=== PATIENT | male | born 1940 | race Caucasian/White ===

== ENCOUNTER 2021-03-11 01:46 | Inpatient (IN) ==
[2021-03-11] MEDS ORDERED: FUROSEMIDE 40 MG/4 ML VIAL IV ONE (02:28)
[2021-03-11 03:38] LABS: BUN Creatinine Ratio 19.7 (10-20); Blood Urea Nitrogen 43 mg/dl (7-18); Calcium 8.3 mg/dl (8.5-10.1); Carbon Dioxide 17 mmol/L (21-32); Chloride 108 mmol/L (98-107); Est GFR (African American) 31.8 ml/min; Est GFR (Non-African American) 27.5 ml/min; Glucose 282 mg/dl (70-99); Sodium 138 mmol/L (136-145)
[2021-03-11 03:39] LABS: INR 1.2 (0.9-1.1); Partial Thromboplastin Ratio 0.9; Partial Thromboplastin Time 24.5 Seconds (21.0-31.0); Prothrombin Time 11.7 Seconds (9.0-12.0)
[2021-03-11] MEDS ORDERED: Heparin IV Adult Wt-Based Low-Dose WITH Bolus Protocol STA (03:41)
[2021-03-11 03:46] LABS: Hematocrit (blood only) 33.8 % (42-52); Mean Corpuscular Hemoglobin 35.8 pg (25-34); Mean Corpuscular Hgb Conc 32.5 g/dL (32-36); Mean Corpuscular Volume 110.1 fL (80-100); Mean Platelet Volume 10.2 fL (7.4-10.4); Platelet Count 656 K/uL (130-400); RDW Coefficient of Variation 16.4 % (11.5-14.5); RDW Standard Deviation 64.4 fL (36.4-46.3); Red Blood Count 3.07 M/uL (4.7-6.1); White Blood Count 35.43 K/uL (4.8-10.8)
[2021-03-11] MEDS ORDERED: HEPARIN SOD (PORCINE) 1000 UNIT/ML IV ONE ×2 (03:56→11:45)
[2021-03-11 04:20] LABS: Potassium 5.6 mmol/L (3.5-5.1)
[2021-03-11 04:29] LABS: Albumin Level 3.3 gm/dl (3.4-5.0); Bilirubin Direct 0.3 mg/dl (0-0.2); Bilirubin,Total 0.8 mg/dl (0.2-1); Total Protein 6.7 gm/dl (6.4-8.2)
[2021-03-11 04:58] LABS: ANC (manual) 9.32 K/uL (1.4-6.5); Basophils # (manual) 0.64 K/uL (0-0.2); Basophils % (manual) 1.8 %; Echinocytes 1+; Large Granular Lymph # (manua 10.88 K/uL; Large Granular Lymph % (manual) 30.7 %; Lymphocytes # (manual) 12.72 K/uL (1.2-3.4); Lymphocytes % (manual) 35.9 %; Monocytes # (manual) 1.88 K/uL (0.11-0.59); Monocytes % (manual) 5.3 %; Neutrophils # (manual) 9.32 K/uL (1.4-6.5); Neutrophils % (manual) 26.3 %; Polychromasia 1+
[2021-03-11] MEDS: HEPARIN SODIUM/DEXTROSE 25,000 UNITS/500 ML BAG IV SCH (05:18)
--- NOTE | 2021-03-11 05:29 | History & Physical Report ---
Date of Service March 11, 2021 Assessment & Plan (1) Acute respiratory failure: Plan: Likely secondary to pulmonary edema from acute heart failure. Patient has a recent echocardiogram in November 2020 revealing valvular disease with moderate aortic valve stenosis present and an EF of 55 to 59%. He also has an elevated troponin present which may be indicative of an NSTEMI. He is chest pain-free at this time. There is concern however for infection as a possible cause as he has had a low-grade fever and now has a dramatically increased white count to 35,000 within 24 hours. We will continue with Lasix for diuresis, check BMP, check procalcitonin, trend troponin and consult cardiology for thoughts and recommendations. Additionally, will screen his urine for infection as he is reported acute urinary retention in the last week that is new for him. Yulissaen mu Anthony is in place. Would empirically cover broadly with antibiotics pending these results and clinical improvement. (2) Elevated troponin: Plan: trend trop. NSTEMI vs demand ischemia in acute illness. Heparin drip. Cardiology consultation. (3) Acute kidney injury superimposed on chronic kidney disease: Plan: Multiple possible etiologies. Repeat BMP after treatment above. Renally dose meds and avoid nephrotoxic substances as able. (4) Hyperglycemia: Plan: No history of DMII. Likely reflective of steroids given HELMINTHOLOGIST. Cont to monitor closely with additional glucose checks. (5) CLL (chronic lymphocytic leukemia): Plan: chronic, received treatment once for this (immunotherapy) in 2012 and remains in remission, monitored closely by hematology (6) Anemia in CKD (chronic kidney disease): Plan: Receives regular injections of Procrit under the care of Nephrology. (7) HTN (hypertension): Plan: Around goal, cont Norvasc per home regimen. (8) Tobacco use disorder: Plan: actively smokes cigars. Nicotine replacement PRN. (9) DVT prophylaxis: Plan: heparin drip Full Code per my discussion with the patient and his son on admission. Dispo- to PCU DO Tawny Sheikh Hospitalist History of Present Illness Chief Complaint: respiratory distress Primary Care Provider: NO PCP Mr. Toledo is a 80-year-old man with a history of CLL and low-grade myelodysplastic syndrome. For the past 1 week he has been having fevers and chills with temperature running 100-100.3, worsening shortness of breath and dyspnea on exertion despite walking on flat ground. He denies any coughing, swelling or weight gain. He denies any night sweats. He reports getting his care most of the year in [place], and is also treated by [facility] oncology who recently gave him a flu vaccine and Procrit/Aranesp on 03/01. Per his son who is at bedside, assisting with the history, within 2 days of receiving these injections Mr. Toledo's current symptoms began. He adamantly denies any chest pain. Work-up reveals a white blood cell count of 35,000 and notably on outpatient lab work his white blood cell count was 13,000 yesterday. Prior to arrival EMS gave him 125 mg of Solu-Medrol and 1 DuoNeb with 1 mg Ativan IV. He is in normal sinus rhythm, H&H is 11/34 with an MCV of 110, platelets are 656. CHEM panel reveals a sodium of 138 potassium of 5.6 (with a hemolyzed sample), CO2 of 17, BUN 43, creatinine 2.2 with a baseline creatinine of 1.4-1.5. His glucose is elevated to 282 and he has no reported history of diabetes. This may be reflective of the Solu-Medrol given prior to arrival. AST mildly elevated at 64, ALT 74. Troponin elevated at 1.410 and SARS-CoV-2 PCR was negative. Pulm onary vascular congestion with pleural effusions bilaterally are present on chest x-ray per my interpretation. EKG is unavailable for viewing at this time. In the ER he was given a dose of Lasix 40 mg IV and placed on a heparin drip. A Anthony catheter was placed and he required BiPAP with settings 14/8. Allergies Allergy/AdvReac Type Severity Reaction Status Date / Time RYLEE Inhibitors AdvReac Intermediate Renal Verified 03/11/21 14:43 Complications Home Medications Medication Instructions Recorded Confirmed Type Black Elderberry(Ellison-Flower) 575 mg PO DAILY 03/11/21 03/11/21 History acetaminophen 500 mg tablet 500 mg PO Q6H PRN 03/11/21 03/11/21 History (Tylenol Extra Strength) amino acids-multivit with iron and 1 tab PO DAILY 03/11/21 03/11/21 History minerals tablet amlodipine 2.5 mg tablet 2.5 mg PO DAILY 03/11/21 03/11/21 History apple cider vinegar 500 mg tablet 500 mg PO DAILY 03/11/21 03/11/21 History azelastine 137 mcg (0.1 %) nasal 2 spray INTRANASAL BID 03/11/21 03/11/21 History spray aerosol cholecalciferol (vitamin D3) 25 25 mcg PO DAILY 03/11/21 03/11/21 History mcg (1,000 unit) tablet (Vitamin D3) cyanocobalamin (vitamin B-12) 1,000 mcg PO DAILY 03/11/21 03/11/21 History 1,000 mcg tablet (Vitamin B-12) epoetin abel 40,000 unit/mL 40,000 unit SUBCUT DIRECTED 03/11/21 03/11/21 History injection solution (Procrit) fluticasone propionate 50 1 spray INTRANASAL DAILY 03/11/21 03/11/21 History mcg/actuation nasal spray,suspension folic acid 1 mg tablet 1 mg PO DAILY 03/11/21 03/11/21 History levothyroxine 75 mcg tablet 75 mcg PO DAILYBB 03/11/21 03/11/21 History pyridoxine (vitamin B6) 100 mg 100 mg PO BID 03/11/21 03/11/21 History tablet (Vitamin B-6) triamcinolone acetonide 0.1 % 1 applic TOPICAL HS PRN 03/11/21 03/11/21 History topical ointment turmeric 450 mg-turmeric root 1 cap PO DAILY 03/11/21 03/11/21 History extract 50 mg capsule Past Med/Surg History Medical History Anemia in CKD (chronic kidney disease) CLL (chronic lymphocytic leukemia) H/O: rheumatic fever HTN (hypertension) LBBB (left bundle branch block) MDS (myelodysplastic syndrome), low grade Nocturnal hypoxemia HAWA (obstructive sleep apnea) Prostate cancer Tobacco use disorder Surgical History H/O uvulectomy S/P tonsillectomy and adenoidectomy Family History Other Family history non-contributory Social History Smoking Status: Former smoker Second Hand Exposure: No; Do You Dip or Chew Tobacco: No; Tobacco Cessation Education Requested by Patient: No Hx Alcohol Use: No Hx Substance Use: No Preferred Language: Khmer Communication Ability: Effective Anesthesia Tech Required: No Beliefs That Will Affect Care: None Current Living Situation: Spouse How many Children do You have: 4 Other Information That Helps Us Care for You: No Feels Safe at Home: Yes Safety Concerns: Feels Safe At This Time Assistive Devices: CPAP Review of Systems Review of Systems: At least ten systems were reviewed and negative except as indicated in HPI above. Physical Exam Physical Exam: CONSTITUTIONAL: WNWD, vitals as above, generally ill- appearing, tachypneic on BIPAP EYES: PERRL, normal conjunctivae, no scleral icterus ENT: external ear and nose normal, BIPAP in place. NECK: trachea midline RESPIRATORY: clear to auscultation bilaterally, no crackles, rales or wheezes, increased respiratory effort. CARDIOVASCULAR: regular rate and rhythm, S1 and 2 heard without murmurs, gallops or rubs, no JVD, no peripheral edema GASTROINTESTINAL: soft, nontender, ND, no guarding MUSCULOSKELETAL: generalized weakness, head is normocephalic and atraumatic SKIN: warm and dry NEUROLOGIC: CN 2-12 grossly intact, normal cognition, normal speech, no tremor. No gross focal deficits. PSYCHIATRIC: alert cooperative and oriented to person, place and time. Results & Data Results & Data ([facility]) Vital Signs (Past 12 Hours) Vital Signs Pulse Resp BP Pulse Ox 03/11/21 04:00 30 H 116/76 98 03/11/21 03:30 67 22 107/79 98 03/11/21 03:18 94 H 22 142/64 H 98 03/11/21 03:01 72 27 H 98 03/11/21 03:00 70 120/57 L 95 03/11/21 02:53 72 23 116/51 L 97 03/11/21 01:50 101 H 28 H 99 Laboratory Results Short CBC 03/11/21 Range/Units 01:50 WBC 35.43 H* (4.8-10.8) K/uL Hgb 11.0 L (14.0-18.0) g/dL Hct 33.8 L (42-52) % Plt Count 656 H (130-400) K/uL BMP 03/11/21 03/11/21 01:50 03:44 Sodium 138 Potassium 5.6 H Chloride 108 H Carbon Dioxide 17 L BUN 43 H Creatinine 2.20 H Glucose 282 H Calcium 8.3 L Cardiac Enzymes 03/11/21 03/11/21 Range/Units 01:50 03:44 Total Creatine Kinase 150 (39-308) U/L CK-MB (CK-2) 6.0 H (0.5-3.6) ng/ml Troponin I 1.410 H* (0-0.045) ng/ml Liver Function 03/11/21 Range/Units 03:44 Total Bilirubin 0.8 (0.2-1) mg/dl Direct Bilirubin 0.3 H (0-0.2) mg/dl AST 64 H (15-37) U/L ALT 74 (12-78) U/L Alkaline Phosphatase 78 (45-117) U/L Albumin 3.3 L (3.4-5.0) gm/dl Diagnostic Findings Chest X-Ray 03/11/21 01:50 XR chest 1V portable HISTORY: 80 years-old Male SOB acute shortness of breath COMPARISON: None TECHNIQUE: Portable AP view of the chest FINDINGS: Cardiac silhouette is enlarged. Pulmonary vascular congestion with asymmetric right hilar prominence. Calcified plaque of the thoracic aorta. No pneumothorax. Layering pleural effusions with right greater than left bibasilar consolidation. Mixed interstitial and alveolar opacities. Degenerative changes of the shoulders and spine. IMPRESSION: 1. Cardiomegaly with pulmonary edema and layering pleural effusions. 2. Right perihilar and right lung base predominant airspace opacities. Superimposed pneumonia would be difficult to exclude. ACT 112: Negative or not required by law. The above report was generated using voice recognition software. It may contain grammatical, syntax or spelling errors. Electronically signed by: Shayne Moran M.D. 03/11/2021 6:57 AM Medications Administered Lasix 40mg IV Heparin drip Code Status & VTE Plan Code Status Full Code as confirmed on admission. VTE Prophylaxis Plan VTE Prophylaxis will be ordered: Yes
--- NOTE | 2021-03-11 06:59 | XRay Report ---
XR chest 1V portable HISTORY: 80 years-old Male SOB acute shortness of breath COMPARISON: None TECHNIQUE: Portable AP view of the chest FINDINGS: Cardiac silhouette is enlarged. Pulmonary vascular congestion with asymmetric right hilar prominence. Calcified plaque of the thoracic aorta. No pneumothorax. Layering pleural effusions with right great er than left bibasilar consolidation. Mixed interstitial and alveolar opacities. Degenerative changes of the shoulders and spine. IMPRESSION: 1. Cardiomegaly with pulmonary edema and layering pleural effusions. 2. Right perihilar and right lung base predominant airspace opacities. Superimposed pneumonia would b e difficult to exclude. ACT 112: Negative or not required by law. The above report was generated using voice recognition software. It may contain grammatical, syntax o r spelling errors. Electronically signed by: Shayne Moran M.D. 03/11/2021 6:57 AM
[2021-03-11] MEDS ORDERED: PIPERACILLIN/TAZOBACTAM 4.5 GM/120 ML BAG IV STA (07:30)
[2021-03-11] MEDS ORDERED: POLYETHYLENE (MIRALAX) 17 GM PACK PO PRN (07:31)
[2021-03-11] MEDS ORDERED: PIPERACILL/TAZOBAC CONSULT ACTIVE PRN (07:31)
[2021-03-11] MEDS ORDERED: ACETAMINOPHEN 325 MG TAB PO PRN (07:31)
[2021-03-11] MEDS: PATIENT'S HEIGHT NEEDED SCH ×3 (07:46→11:01)
[2021-03-11] MEDS: PATIENT'S ALLERGY INFO NEEDS ENTERED SCH (07:47)
[2021-03-11 08:42] LABS: Troponin I 2.2 ng/ml (0-0.045)
[2021-03-11] MEDS: amLODIPine BESYLATE 5 MG TAB PO SCH (09:35)
[2021-03-11 10:10] LABS: Estimated Average Glucose 105 mg/dl; Hemoglobin A1C 5.3 % (4.5-5.6)
[2021-03-11 10:24] LABS: BUN Creatinine Ratio 23.4 (10-20); Blood Urea Nitrogen 47 mg/dl (7-18); Calcium 8.6 mg/dl (8.5-10.1); Carbon Dioxide 23 mmol/L (21-32); Chloride 107 mmol/L (98-107); Est GFR (African American) 35.3 ml/min; Est GFR (Non-African American) 30.5 ml/min; Glucose 150 mg/dl (70-99); Sodium 137 mmol/L (136-145)
[2021-03-11 10:37] LABS: Potassium 4.6 mmol/L (3.5-5.1)
--- NOTE | 2021-03-11 11:03 | Cardiology Consultation ---
Date of Consultation March 11, 2021 Assessment & Plan (1) Acute decompensated heart failure: (2) Acute respiratory failure: (3) NSTEMI (non-ST elevated myocardial infarction): (4) Acute kidney injury superimposed on chronic kidney disease: (5) Aortic stenosis: IV furosemide 40 mg/day Add Aspirin IV heparin > 48 hours Low dose beta-kelle, with caution. Resting echocardiography Further recommendations pending the above, evaluation by Dr. Alatorre, and the patient's ongoing hospitalization. Supervising Physician Co-Signing Physician Notes Supervising Physician Attestation: I have personally performed a history and physical examination on the patient. I agree with the physician school office assistant's findings and plan as documented with the following additions. Subjective: Patient subjectively improved having received furosemide. Anthony catheter is draining clear yellow urine in this was emptied while he was in the heart center having his echocardiogram. Chest x-ray reveals lateral large bilateral pleural effusions. Exam: Pulmonary: Decreased breath sounds bilaterally at the bases to the mid lung villatoro Cardiovascular regular rhythm, 1/6 systolic murmur, trace lower extremity edema GI: Anthony catheter in place draining clear yellow urine Data: EKG 03/11/2021 reviewed independently sinus rhythm at 94 bpm, left bundle branch block, QRS duration 152 ms -Unchanged compared to 2017, 2018, November, Transthoracic echocardiogram performed as an outpatient November,, report describes abnormal septal motion consistent with bundle branch block, normal LVEF 55 to 59% Repeat echo pending. Assessment and Plan: Acute volume overload, likely systolic and diastolic dysfunction History of stage IIIa chronic kidney disease, recent outpatient estimated GFR in the range of 43 to 49 mmHg,Creatinine 2.02 today. Chronic left bundle branch block -Continue IV furosemide, Anthony catheter,We will discuss either changing his antibiotic to when that would require less oral input such as cefepime or doxycycline, though I think we have a good explanation for his shortness of breath and that is due to CHF, and perhaps we can watch him off of antibiotics completely. His recent low-grade fever likely explained by influenza vaccine. SARS-CoV-2 screen negative. US of kidneys for ERICK, of chest for pleural effusions. Continue heparin as could very well have frequent heart disease, however his presentation is not suggestive of an acute intra coronary plaque rupture. DVT prophylaxis: IV heparin Maged Alatorre, DO History of Present Illness Reason for Consultation: Elevated troponin Requesting Physician: Dario Attending Physician: Janneth History of Present Illness Mr. Toledo is a 80-year-old male who was admitted to [facility] on February, presenting with a chief complaint of acute dyspnea. The patient notes feeling well until Wednesday, March 03, 2021; he attributes the decline to receiving the influenza vaccination at [facility] two days prior. Notes having a temperature of up to 100.3 at home shortly after receiving the influenza vaccination. Notes talking things over with his son, performing home Covid testing obtained at [facility] on Monday as well as Monday (negative results). He describes to me worsening dyspnea, being unable to walk to the mailbox without having to stop and rest, progressing to dyspnea at rest, cough with white sputum production, chest congestion, orthopnea, and difficulty tolerating CPAP therapy the last couple of night. Due to progressive symptoms last nigh, EMS was summoned. He was given 125 mg of Solu-Medrol, a DuoNeb treatment, and 1 mg of IV Ativan. White blood cell count elevated to 35,000 in the ER, 13,000 yesterday at [facility]. Chest x-ray revealed cardiomegaly with pulmonary edema and layering pleural effusions and right perihilar and right lung base airspace opacities. EKG revealed normal sinus rhythm at 94 bpm with possible left atrial enlargement, chronic left bundle branch block. Troponin I 1.410 then 2.200. NT pro BNP was elevated at 15,181. Creatinine was 2.20 on presentation. Continuous telemetry monitoring since admission reveals sinus with atrial and ventricular ectopy, one 6 beat run of ventricular tachycardia at 933 this morning. Covid testing was negative in the ER. He was given 40 mg of IV Lasix in the ER with brisk diuresis. IV heparin initiated. Anthony catheter inserted. Patient initially required BiPAP therapy, currently utilizing supplemental oxygen via nasal cannula. Patient denies chest pain, discomfort, tightness, pressure, pleurtic chest pain, tachypalpitations, lightheadedness, dizziness, near syncope, or syncope. Past Medical and Surgical History Aortic stenosis History of rheumatic fever Chronic left bundle branch block Hypertension T-cell lymphoma Myelodysplastic syndrome, chronic Procrit therapy Anemia in CKD (chronic kidney disease) Obstructive sleep apnea and nocturnal hypoxemia Prostate cancer Tobacco use disorder Left knee arthroscopy Palatal uvuloplasty Family History: Mother at 91. She had CAD. Father at 71 with cancer. Sister at 71 with CAD. Social History: No cigarettes. He chews/smokes cigars. No smokeless tobacco use. Alcohol: Occasional scotch. No illegal drug use. 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 Allergies Allergy/AdvReac Type Severity Reaction Status Date / Time RYLEE Inhibitors Allergy Intermediate Renal Unverified 03/11/21 07:17 Complications Home Medications Medication Instructions Recorded Confirmed Type Black Elderberry(Ellison-Flower) 575 mg PO DAILY 03/11/21 03/11/21 History acetaminophen 500 mg tablet 500 mg PO Q6H PRN 03/11/21 03/11/21 History (Tylenol Extra Strength) amino acids-multivit with iron and 1 tab PO DAILY 03/11/21 03/11/21 History minerals tablet amlodipine 2.5 mg tablet 2.5 mg PO DAILY 03/11/21 03/11/21 History apple cider vinegar 500 mg tablet 500 mg PO DAILY 03/11/21 03/11/21 History azelastine 137 mcg (0.1 %) nasal 2 spray INTRANASAL BID 03/11/21 03/11/21 History spray aerosol cholecalciferol (vitamin D3) 25 25 mcg PO DAILY 03/11/21 03/11/21 History mcg (1,000 unit) tablet (Vitamin D3) cyanocobalamin (vitamin B-12) 1,000 mcg PO DAILY 03/11/21 03/11/21 History 1,000 mcg tablet (Vitamin B-12) epoetin abel 40,000 unit/mL 40,000 unit SUBCUT DIRECTED 03/11/21 03/11/21 History injection solution (Procrit) fluticasone propionate 50 1 spray INTRANASAL DAILY 03/11/21 03/11/21 History mcg/actuation nasal spray,suspension folic acid 1 mg tablet 1 mg PO DAILY 03/11/21 03/11/21 History levothyroxine 75 mcg tablet 75 mcg PO DAILYBB 03/11/21 03/11/21 History pyridoxine (vitamin B6) 100 mg 100 mg PO BID 03/11/21 03/11/21 History tablet (Vitamin B-6) triamcinolone acetonide 0.1 % 1 applic TOPICAL HS PRN 03/11/21 03/11/21 History topical ointment turmeric 450 mg-turmeric root 1 cap PO DAILY 03/11/21 03/11/21 History extract 50 mg capsule Patient History Medical History Anemia in CKD (chronic kidney disease) CLL (chronic lymphocytic leukemia) H/O: rheumatic fever HTN (hypertension) LBBB (left bundle branch block) MDS (myelodysplastic syndrome), low grade Nocturnal hypoxemia HAWA (obstructive sleep apnea) Prostate cancer Tobacco use disorder Family History Other Family history non-contributory Social History Smoking Status: Former smoker Second Hand Exposure: No; Do You Dip or Chew Tobacco: No; Tobacco Cessation Education Requested by Patient: No Hx Alcohol Use: No Hx Substance Use: No Preferred Language: Martiniquais Communication Ability: Effective Upholsterer Assembly Line Required: No Beliefs That Will Affect Care: None Current Living Situation: Spouse How many Children do You have: 4 Other Information That Helps Us Care for You: No Feels Safe at Home: Yes Safety Concerns: Feels Safe At This Time Assistive Devices: CPAP Review of Systems Review of Systems: Complete Review of Systems: Constitutional: No change in weight. + Fever up to 100.3 on 03/02 and 03/03. No rigors. No soaking night sweats. HENT: No amaurosis fugax. Pulmonary: HAWA/hypoxemia. Cardiac: Aortic stenosis. GI/Abd: No dysphagia. No melana or hematochezia. Renal: CKD. Denies liver problems. Vascular: No history of carotid artery disease, AAA, or claudication. Hematologic: See above. Musculoskeletal: Prior knee intervention. Arthritis. Skin: No rash. Neurologic: No history of TIA or CVA Male : BPH. Prostate cancer. Endocrine: Denies history of diabetes. Complete Review of Systems is as stated above or negative. Physical Exam Physical Exam: General: A&Ox3. + Tachypnic. HENT: Normocephalic. Atraumatic. Eyes: PER. Conjunctiva pink, sclera clear. Neck: + JVD. No carotid bruits. Heart: Irregular with an occasional ectopic beat, 90 bpm. Systolic ejection murmur. + Gallop. No diastolic murmur. No rub. Lungs: Diminished. Decreased. Absent breath sounds at the bases. Bibasilar rales . Abdomen: +BS. Soft. Nontender. No masses or organomegaly. Extremities: Mild right greater than left lower extremity edema. No clubbing. No cyanosis. Limited neurological examination is without focal deficits. Pulses: radial=2/4, posterior tibial=2/4 on the right, 1/4 on the left Results & Data ([facility]) Vital Signs (Past 12 Hours) Vital Signs Temp Pulse Resp BP BP Pulse Ox Pulse Ox 03/11/21 10:07 81 03/11/21 07:50 81 03/11/21 07:35 16 133/79 95 03/11/21 07:31 37 C 95 03/11/21 06:30 82 26 H 114/73 99 03/11/21 06:00 83 24 133/74 99 03/11/21 04:00 30 H 116/76 98 03/11/21 03:30 67 22 107/79 98 03/11/21 03:18 94 H 22 142/64 H 98 03/11/21 03:01 72 27 H 98 03/11/21 03:00 70 120/57 L 95 03/11/21 02:53 72 23 116/51 L 97 03/11/21 01:50 101 H 28 H 99 Laboratory Results Laboratory Results - last 24 hr 03/11/21 03/11/21 03/11/21 01:50 01:50 01:50 WBC 35.43 H* RBC 3.07 L Hgb 11.0 L Hct 33.8 L MCV 110.1 H MCH 35.8 H MCHC 32.5 RDW Std Deviation 64.4 H RDW Coeff of Geovanni 16.4 H Plt Count 656 H MPV 10.2 Neutrophils % (Manual) 26.3 Lymphocytes % (Manual) 35.9 Monocytes % (Manual) 5.3 Basophils % (Manual) 1.8 Neutrophils # (Manual) 9.32 H Total Absolute Neuts 9.32 H Lymphocytes # (Manual) 12.72 H Total Abs Lymphocytes 23.60 H Monocytes # (Manual) 1.88 H Basophils # (Manual) 0.64 H Large Granular Lymphs 30.7 # Lrg Granular Lymphs 10.88 Blood Smear Review Polychromasia 1+ Echinocytes 1+ PT 11.7 INR 1.2 H APTT 24.5 PTT Ratio 0.9 Sodium 138 Potassium Chloride 108 H Carbon Dioxide 17 L Anion Gap 13.0 H BUN 43 H Creatinine 2.20 H Est Cr Clr Drug Dosing Not Reportable Est GFR ( Amer) 31.8 Est GFR (Non-Af Amer) 27.5 BUN/Creatinine Ratio 19.7 Glucose 282 H Estimat Average Glucose Hemoglobin A1c Lactate Calcium 8.3 L Total Bilirubin Direct Bilirubin AST ALT Alkaline Phosphatase Total Creatine Kinase CK-MB (CK-2) 6.0 H CK/CKMB % Calc Not Reportable Troponin I 1.410 H* NT-Pro-B Natriuret Pep Total Protein Albumin Procalcitonin SARS-CoV-2 (PCR) 03/11/21 03/11/21 03/11/21 01:50 02:40 03:44 WBC RBC Hgb Hct MCV MCH MCHC RDW Std Deviation RDW Coeff of Geovanni Plt Count MPV Neutrophils % (Manual) Lymphocytes % (Manual) Monocytes % (Manual) Basophils % (Manual) Neutrophils # (Manual) Total Absolute Neuts Lymphocytes # (Manual) Total Abs Lymphocytes Monocytes # (Manual) Basophils # (Manual) Large Granular Lymphs # Lrg Granular Lymphs Blood Smear Review Polychromasia Echinocytes PT INR APTT PTT Ratio Sodium Potassium 5.6 H Chloride Carbon Dioxide Anion Gap BUN Creatinine Est Cr Clr Drug Dosing Est GFR ( Amer) Est GFR (Non-Af Amer) BUN/Creatinine Ratio Glucose Estimat Average Glucose Hemoglobin A1c Lactate 3.9 H* Calcium Total Bilirubin 0.8 Direct Bilirubin 0.3 H AST 64 H ALT 74 Alkaline Phosphatase 78 Total Creatine Kinase 150 CK-MB (CK-2) CK/CKMB % Calc Troponin I NT-Pro-B Natriuret Pep Total Protein 6.7 Albumin 3.3 L Procalcitonin SARS-CoV-2 (PCR) NEGATIVE 03/11/21 03/11/21 03/11/21 03:48 04:44 04:45 WBC RBC Hgb Hct MCV MCH MCHC RDW Std Deviation RDW Coeff of Geovanni Plt Count MPV Neutrophils % (Manual) Lymphocytes % (Manual) Monocytes % (Manual) Basophils % (Manual) Neutrophils # (Manual) Total Absolute Neuts Lymphocytes # (Manual) Total Abs Lymphocytes Monocytes # (Manual) Basophils # (Manual) Large Granular Lymphs # Lrg Granular Lymphs Blood Smear Review Polychromasia Echinocytes PT INR APTT PTT Ratio Sodium Potassium Chloride Carbon Dioxide Anion Gap BUN Creatinine Est Cr Clr Drug Dosing Est GFR ( Amer) Est GFR (Non-Af Amer) BUN/Creatinine Ratio Glucose Estimat Average Glucose Hemoglobin A1c Lactate 1.8 Calcium Total Bilirubin Direct Bilirubin AST ALT Alkaline Phosphatase Total Creatine Kinase CK-MB (CK-2) CK/CKMB % Calc Troponin I 2.200 H* NT-Pro-B Natriuret Pep 53881 H Total Protein Albumin Procalcitonin 0.13 SARS-CoV-2 (PCR) 03/11/21 03/11/21 03/11/21 04:45 09:36 10:59 WBC RBC Hgb Hct MCV MCH MCHC RDW Std Deviation RDW Coeff of Geovanni Plt Count MPV Neutrophils % (Manual) Lymphocytes % (Manual) Monocytes % (Manual) Basophils % (Manual) Neutrophils # (Manual) Total Absolute Neuts Lymphocytes # (Manual) Total Abs Lymphocytes Monocytes # (Manual) Basophils # (Manual) Large Granular Lymphs # Lrg Granular Lymphs Blood Smear Review Polychromasia Echinocytes PT INR APTT 33.2 H PTT Ratio 1.3 Sodium 137 Potassium 4.6 D Chloride 107 Carbon Dioxide 23 Anion Gap 7.0 BUN 47 H Creatinine 2.02 H Est Cr Clr Drug Dosing Not Reportable Est GFR ( Amer) 35.3 Est GFR (Non-Af Amer) 30.5 BUN/Creatinine Ratio 23.4 H Glucose 150 H Estimat Average Glucose 105 Hemoglobin A1c 5.3 Lactate Calcium 8.6 Total Bilirubin Direct Bilirubin AST ALT Alkaline Phosphatase Total Creatine Kinase CK-MB (CK-2) CK/CKMB % Calc Troponin I NT-Pro-B Natriuret Pep Total Protein Albumin Procalcitonin SARS-CoV-2 (PCR) ECG Additional Comments: EKG on March 11, 2021 revealed normal sinus rhythm at 94 bpm with possible left atrial enlargement, chronic left bundle branch block.
[2021-03-11 11:18] LABS: Partial Thromboplastin Ratio 1.3; Partial Thromboplastin Time 33.2 Seconds (21.0-31.0)
--- NOTE | 2021-03-11 11:44 | Hospitalist Progress Note ---
Date of Service March 11, 2021 Assessment & Plan (1) Acute respiratory failure: Plan: This is a 80yo M with a PMH CLL, low-grade myelodysplastic syndrome, HTN, moderate aortic stenosis, HTN, LBBB, CKD III and other medical problems listed below who presents with fevers, chills and shortness of breath x 1 week. In the setting of decompensated heart failure, possible infection Initially requiring bipap, now transitioned to NC - saturating at 99% on 2L NC Continue supplemental O2 (2) Acute decompensated heart failure: Plan: Recent TTE in November 2020 revealing valvular disease with moderate aortic valve stenosis present and an EF of 55 to 59% CXR with cardiomegaly with pulmonary edema and layering pleural effusions Initial troponin 1.4, pro-bnp 15, 181 Given 40mg IV Lasix in ED, del rosario in place for strict I&Os Cardiology consulted - TTE, plan to continue Lasix 40mg IV daily (3) Leukocytosis: Plan: WBC 25k (baseline ~11-12k, 13k on 03/10/21), total abs lymphocyte 23.6k, lactate initially 3.9 --> 1.8, procalcitonin wnl CXR also showing right perihilar and right lung base predominant airspace opacities. Superimposed pneumonia would be difficult to exclude UA pending Started on empiric Zosyn, will transition to Rocephin Follow cultures (4) NSTEMI (non-ST elevated myocardial infarction): Plan: No chest pain, EKG with NSR and known LBBB In setting of decompensated heart failure, ERICK Initial troponin 1.4 -> 2.2 Started on IV heparin drip - continue for at least 48 hours Cardiology added aspirin, low dose beta kelle TTE pending (5) Aortic stenosis: Plan: Moderate aortic stenosis on November 2020 TTE Monitor volume status closely, receiving IV lasix (6) Acute kidney injury superimposed on chronic kidney disease: Plan: Initial Cr 2.02 (baseline ~ 1.5). In setting of decompensated heart failure, NSTEMI Recent urinary retention noted, obtain UA, bladder scan, renal ultrasound orde red Avoid nephrotoxic agents, expect improvement with diuresis Daily BMP (7) Anemia in CKD (chronic kidney disease): Plan: Hgb 11 (baseline). Continue to monitor (8) CLL (chronic lymphocytic leukemia): Plan: Previously received oncology care in [place], seen by Dr. Armenta earlier this month Continue current treatment including Retacrit 40,000 on every other week basis (9) HTN (hypertension): Plan: Normotensive. Continue amlodipine, lopressor added (10) Hyperglycemia: Plan: Initial BSG 150 - no history of DM II. Hgb A1c WNL at 5.3% (11) HAWA (obstructive sleep apnea): Plan: CPAP HS DVT Ppx: IV heparin Code status: FULL PCP: Niraj Dispo: Admitted to PCU Patient seen in collaboration with Dr. Lagunas. Please see addendum. Admission and Anticipated Discharge Date Admission Date: March 11, 2021 Supervising Physician Co-Signing Physician Notes History and exam performed by me History notable for 80-year-old man with history of CLL, low-grade MDS who presented with worsening shortness of breath and dyspnea on exertion, subjective low-grade fever at home over the past 5days to 1 week. Also reported increasing urinary symptoms (difficulty initiating urination, has to sit down) no dysuria, frequency, urgency. Reports occasional weaker stream. No terminal dribbling or hematuria. Reports cough and occasional orthopnea. Physical exam notable for elderly man, 4 L minute nasal oxygen. Diminished breath sounds lung bases and basilar crackles, small ankle edema. Lab work notable for WBC of 35,000, hemoglobin of 11, MCV of 110, platelet of 656, creatinine of 2.02, AST of 64, troponin of 1.41 up to 2.2, BNP of 15,000 Chest x-ray showed cardiomegaly with pulmonary edema and layering pleural effusion. Right perihilar and right lung base predominant airspace opacity. Patient has NSTEMI Also has congestive heart failure. Continue heparin drip and Lasix Daily weights, input and output monitoring Cardiology recommendation appreciated Follow-up TTE Patient has significant leukocytosis with lymphocyte predominance. He reported that he had recently gotten home retacrit by his psych tech recently. This may be related to that. However, infectious cannot be fully ruled out at this time. We will continue antibiotic coverage for now while awaiting infectious work-up including blood cultures. UA and urine culture ordered had not been sent. RN notified. Agree with other plans as detailed by Thuy Rodriguez PA-C Subjective Seen and examined in 240-1. Feeling much improved from initial presentation. Transitioned from bipap mask NC and is saturating at 95% on 4L NC. Coughing during interview with yellow/brown sputum. Still feeling more SOB than baseline. No fever, chills, lightheadedness, CP, nausea, vomiting, abdominal pain, dysuria, diarrhea or constipation. Lives at home with girlfriend. Review of Systems Review of Systems: At least ten systems were reviewed and negative except as indicated in HPI above. Physical Exam Physical Exam: General Appearance: WD/WN, vitals as above, sitting up in bed, conversational dyspnea Head: normocephalic, atraumatic Eyes: normal inspection, PERRL, conjunctivae normal, anicteric sclerae ENT: external ear and nose normal, oropharynx normal Neck: normal visual inspection, trachea midline, no thyromegaly Respiratory: increased respiratory effort, diminished breath sounds to auscultation, bibasilar rales. + accessory muscle use Cardiovascular: irregular rate, rhythm, + systolic murmur, normal peripheral pulses, 1+ BLE edema. Vessels: + JVD Chest: normal inspection of chest Abdomen/GI: normal bowel sounds, soft, nontender, no hepatosplenomegaly Extremities/Musculoskeletal: no cyanosis or clubbing, extremities motor strength 5/5 Neurologic: PERRL, EOMI, accommodation nl, no face palsy, no dysarthria, CN's II-XI intact bilaterally and moves all extremities Psychiatric: A+Ox3, euthymic affect Skin: no rashes, normal color, warm/dry Results & Data Results & Data ([facility]) Vital Signs (Past 12 Hours) Vital Signs Temp Pulse Resp BP BP Pulse Ox Pulse Ox 03/11/21 10:07 81 03/11/21 07:50 81 03/11/21 07:35 16 133/79 95 03/11/21 07:31 37 C 95 03/11/21 06:30 82 26 H 114/73 99 03/11/21 06:00 83 24 133/74 99 03/11/21 04:00 30 H 116/76 98 03/11/21 03:30 67 22 107/79 98 03/11/21 03:18 94 H 22 142/64 H 98 03/11/21 03:01 72 27 H 98 03/11/21 03:00 70 120/57 L 95 03/11/21 02:53 72 23 116/51 L 97 03/11/21 01:50 101 H 28 H 99 Laboratory Results Short CBC 03/11/21 Range/Units 01:50 WBC 35.43 H* (4.8-10.8) K/uL Hgb 11.0 L (14.0-18.0) g/dL Hct 33.8 L (42-52) % Plt Count 656 H (130-400) K/uL BMP 03/11/21 03/11/21 03/11/21 01:50 03:44 09:36 Sodium 138 137 Potassium 5.6 H 4.6 D Chloride 108 H 107 Carbon Dioxide 17 L 23 BUN 43 H 47 H Creatinine 2.20 H 2.02 H Glucose 282 H 150 H Calcium 8.3 L 8.6 Cardiac Enzymes 03/11/21 03/11/21 03/11/21 Range/Units 01:50 03:44 04:45 Total Creatine Kinase 150 (39-308) U/L CK-MB (CK-2) 6.0 H (0.5-3.6) ng/ml Troponin I 1.410 H* 2.200 H* (0-0.045) ng/ml Liver Function 03/11/21 Range/Units 03:44 Total Bilirubin 0.8 (0.2-1) mg/dl Direct Bilirubin 0.3 H (0-0.2) mg/dl AST 64 H (15-37) U/L ALT 74 (12-78) U/L Alkaline Phosphatase 78 (45-117) U/L Albumin 3.3 L (3.4-5.0) gm/dl Diagnostic Findings Chest X-Ray 03/11/21 01:50 XR chest 1V portable HISTORY: 80 years-old Male SOB acute shortness of breath COMPARISON: None TECHNIQUE: Portable AP view of the chest FINDINGS: Cardiac silhouette is enlarged. Pulmonary vascular congestion with asymmetric right hilar prominence. Calcified plaque of the thoracic aorta. No pneumothorax. Layering pleural effusions with right greater than left bibasilar consolidation. Mixed interstitial and alveolar opacities. Degenerative changes of the shoulders and spine. IMPRESSION: 1. Cardiomegaly with pulmonary edema and layering pleural effusions. 2. Right perihilar and right lung base predominant airspace opacities. Supe rimposed pneumonia would be difficult to exclude. ACT 112: Negative or not required by law. The above report was generated using voice recognition software. It may contain grammatical, syntax or spelling errors. Electronically signed by: Shayne Moran M.D. 03/11/2021 6:57 AM
[2021-03-11] MEDS ORDERED: PIPERACILLIN/TAZOBACTAM 3.375 GM in DEXTROSE 5% 100 ML IV SCH (12:00)
[2021-03-11] MEDS: METOPROLOL SUCC 25MG EXT REL TAB PO SCH (13:30)
--- NOTE | 2021-03-11 15:16 | Ultrasound Report ---
US effusion-chest/mediastinum HISTORY: 80 years-old Male bilateral pleural effusion bilateral pleural effusions COMPARISON: Chest radiograph of same day TECHNIQUE: Multiple real-time sonographic images of the chest were obtained assessing grayscale appea kasia FINDINGS: Bilateral pleural effusions. The right pleural effusion is measured at 1608 mL. The left pleural effu frankie is measured at 1409 mL. Neither side of the chest was marked. IMPRESSION: Bilateral pleural effusions, right greater than left. ACT 112: Negative or not required by law. The above report was generated using voice recognition software. It may contain grammatical, syntax o r spelling errors. Electronically signed by: Shayne Moran M.D. 03/11/2021 3:15 PM
--- NOTE | 2021-03-11 15:17 | Ultrasound Report ---
RENAL ULTRASOUND HISTORY: Acute kidney injury. Urinary retention. COMPARISON: None. FINDINGS: Right kidney: 10.3 cm. A 1.1 cm exophytic lower pole cyst. No hydronephrosis. Mild to moderate cortic al thinning. Normal corticomedullary differentiation. Left kidney: 10.2 cm. No hydronephrosis. Mild to moderate cortical thinning. Normal corticomedullary differentiation.. There is a 1 cm lower pole cyst. Bladder: Decompressed by Anthony catheter and not well visualized. IMPRESSION: No hydronephrosis. ACT 112: Negative or not required by law. Electronically signed by: Geovanni East M.D. 03/11/2021 3:16 PM
--- NOTE | 2021-03-11 16:19 | Emergency Department Note ---
Impression & Plan Acute decompensated heart failure, Acute respiratory failure, CLL (chronic lymphocytic leukemia) ED Provider Note CHIEF COMPLAINT: Flu shot and Procrit 1 week ago, weak ever since HISTORY OF PRESENT ILLNESS: This 80 yo male patient presents to the emergency department with h/o CLL who presents to the ED with c/o weakness. 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 He presents with his son, stating pt follows with G Dr. Ibarra oncology locally. Pt has had some chills and sweats. Pt has been SOB, particularly with exertion. He admits to h/o CHF, aortic stenosis. REVIEW OF SYSTEMS: A review of systems was performed with positives and pertinent negatives listed in the history of present illness. 10 systems were reviewed and are otherwise negative. ALLERGIES: See below MEDICATIONS: See below PMH: See below SOCIAL HISTORY: See below PHYSICAL EXAM: Vital signs reviewed. General: Chronically ill-appearing 80 yo male, in no significant distress. HEENT: No scleral icterus, PERRLA, neck supple. Atraumatic. Cardiovascular: Regular rate and rhythm, systolic ejection murmur, no extra sounds. Pulmonary: Coarse BS to auscultation bilaterally,increased work of breathing. Abdomen: Soft, nontender, nondistended, positive bowel sounds. Musculoskeletal: Atraumatic, mild peripheral edema. Neurologic: Patient somnolent and unable to verbalize much, responds to stimuli. Skin: Warm, dry, no rash EMERGENCY DEPARTMENT COURSE: This pt was evaluated and appeared to be in no distress. IV access was obtained and lab work was drawn. Pt was placed on the color television console monitor. CXR was concerning for pulmonary edema. Pt was placed on bipap for resp failure. Lab work reveals a marked leukocytosis at 35, trop of 1.4, lactate of 3.9. EKG notes a LBBB. IV heparin drip was started. IV lasix 40 mg was administered. Case was discussed with the hospitalist service for admission and further management. Son was made aware of the plan and agreed. MONITORING: An order for cardiac monitoring was placed and the patient is noted to be in a NSR at 96 beats per minute. RADIOLOGY: XR chest 1V portable HISTORY: 80 years-old Male SOB acute shortness of breath COMPARISON: None TECHNIQUE: Portable AP view of the chest FINDINGS: Cardiac silhouette is enlarged. Pulmonary vascular congestion with asymmetric right hilar prominence. Calcified plaque of the thoracic aorta. No pneumothorax. Layering pleural effusions with right greater than left bibasilar consolidation. Mixed interstitial and alveolar opacities. Degenerative changes of the shoulders and spine. IMPRESSION: 1. Cardiomegaly with pulmonary edema and layering pleural effusions. 2. Right perihilar and right lung base predominant airspace opacities. Superimposed pneumonia would be difficult to exclude. ACT 112: Negative or not required by law. The above report was generated using voice recognition software. It may contain grammatical, syntax or spelling errors. Electronically signed by: Shayne Moran M.D. 03/11/2021 6:57 AM Dictated: 03/11/21654Transcribed: 03/11/21654 EKG: NSR at 94 bpm with left atrial enlargement. LBBB, prolonged QTc, no PVC, no PAC I have personally spent 40 minutes of critical care time in the direct management of this patient. This was a life threatening event. This 40 minutes is in excess of all separately billable procedures. Disposition: Admission/hospitalist Past Med/Surg History Medical History Anemia in CKD (chronic kidney disease) CKD (chronic kidney disease) stage 3, GFR 30-59 ml/min CLL (chronic lymphocytic leukemia) H/O: rheumatic fever HTN (hypertension) LBBB (left bundle branch block) MDS (myelodysplastic syndrome), low grade Nocturnal hypoxemia HAWA (obstructive sleep apnea) Prostate cancer Tobacco use disorder Surgical History H/O uvulectomy S/P tonsillectomy and adenoidectomy Family History Other Family history non-contributory Social History Smoking Status: Former smoker Second Hand Exposure: No; Hx Alcohol Use: No Hx Substance Use: No Preferred Language: Japanese Communication Ability: Effective Online Content Coordinator Required: No Beliefs That Will Affect Care: None Current Living Situation: Spouse How many Children do You have: 4 Feels Safe at Home: Yes Assistive Devices: None Allergies Allergies Allergy/AdvReac Type Severity Reaction Status Date / Time RYLEE Inhibitors AdvReac Intermediate Renal Verified 03/11/21 14:43 Complications Home Meds Home Medications Medication Instructions Recorded Confirmed Black Elderberry(Ellison-Flower) 575 mg PO DAILY 03/11/21 03/11/21 acetaminophen 500 mg tablet 500 mg PO Q6H PRN 03/11/21 03/11/21 (Tylenol Extra Strength) amino acids-multivit with iron and 1 tab PO DAILY 03/11/21 03/11/21 minerals tablet apple cider vinegar 500 mg tablet 500 mg PO DAILY 03/11/21 03/11/21 azelastine 137 mcg (0.1 %) nasal 2 spray INTRANASAL BID 03/11/21 03/11/21 spray aerosol cholecalciferol (vitamin D3) 25 25 mcg PO DAILY 03/11/21 03/11/21 mcg (1,000 unit) tablet (Vitamin D3) cyanocobalamin (vitamin B-12) 1,000 mcg PO DAILY 03/11/21 03/11/21 1,000 mcg tablet (Vitamin B-12) epoetin abel 40,000 unit/mL 40,000 unit SUBCUT DIRECTED 03/11/21 03/11/21 injection solution (Procrit) fluticasone propionate 50 1 spray INTRANASAL DAILY 03/11/21 03/11/21 mcg/actuation nasal spray,suspension folic acid 1 mg tablet 1 mg PO DAILY 03/11/21 03/11/21 levothyroxine 75 mcg tablet 75 mcg PO DAILYBB 03/11/21 03/11/21 pyridoxine (vitamin B6) 100 mg 100 mg PO BID 03/11/21 03/11/21 tablet (Vitamin B-6) triamcinolone acetonide 0.1 % 1 applic TOPICAL HS PRN 03/11/21 03/11/21 topical ointment turmeric 450 mg-turmeric root 1 cap PO DAILY 03/11/21 03/11/21 extract 50 mg capsule Previous Rx's Medication Instructions Recorded amiodarone 200 mg tablet 200 mg PO UD #60 tab 03/20/21 aspirin 81 mg tablet,delayed 81 mg PO QAM #30 tab 03/20/21 release atorvastatin 40 mg tablet 40 mg PO HS #30 tab 03/20/21 furosemide 40 mg tablet 40 mg PO QAM #30 tab 03/20/21 metoprolol tartrate 25 mg tablet 12.5 mg PO BID #30 tab 03/20/21 warfarin 1 mg tablet 1 mg PO UD #60 tab 03/20/21 warfarin 2 mg tablet 2 mg PO UD #60 tab 03/20/21 Results & Data (ED) Vital Signs Vital Signs - 24 hr 03/11/21 01:50 03/11/21 01:56 03/11/21 02:53 Pulse Rate 101 H 72 Pulse Rate from SpO2 Sensor 71 Respiratory Rate 28 H 23 Respiratory Effort / Characteristics Spontaneous Accessory Muscle Use Short of Breath SOB on Exertion Respiratory Depth Retractive Respiratory Pattern Tachypnea Blood Pressure 116/51 L Blood Pressure Mean 72 Pulse Oximetry 99 97 Oxygen Delivery Method BiPAP CPAP CPAP Fraction of Inspired Oxygen 80 SaO2/FiO2 Ratio Sepsis Recent Fever Within 48 Hours Sepsis New/Unexplained Change in Mental Status Sepsis Action Taken by Nursing 03/11/21 03:00 03/11/21 03:01 03/11/21 03:18 Pulse Rate 70 72 94 H Pulse Rate from SpO2 Sensor Respiratory Rate 27 H 22 Respiratory Effort / Characteristics Respiratory Depth Respiratory Pattern Blood Pressure 120/57 L 142/64 H Blood Pressure Mean 78 90 Pulse Oximetry 95 98 98 Oxygen Delivery Method CPAP CPAP Fraction of Inspired Oxygen 35 40 SaO2/FiO2 Ratio 245 Sepsis Recent Fever Within 48 Hours No Sepsis New/Unexplained Change in Mental Status No Sepsis Action Taken by Nursing No Action Required 03/11/21 03:30 03/11/21 04:00 Pulse Rate 67 Pulse Rate from SpO2 Sensor Respiratory Rate 22 30 H Respiratory Effort / Characteristics Respiratory Depth Respiratory Pattern Blood Pressure 107/79 116/76 Blood Pressure Mean 88 89 Pulse Oximetry 98 98 Oxygen Delivery Method CPAP CPAP Fraction of Inspired Oxygen SaO2/FiO2 Ratio Sepsis Recent Fever Within 48 Hours Sepsis New/Unexplained Change in Mental Status Sepsis Action Taken by Detention Medications Current Medication List: was personally reviewed by me Laboratory Data Attestation: I reviewed the patient's lab results. Result diagrams: 03/20/21 06:28 03/20/21 06:28 Lab Results 03/11/21 03/11/21 03/11/21 Range/Units 01:50 01:50 01:50 WBC 35.43 H* (4.8-10.8) K/uL RBC 3.07 L (4.7-6.1) M/uL Hgb 11.0 L (14.0-18.0) g/dL Hct 33.8 L (42-52) % MCV 110.1 H (80-100) fL MCH 35.8 H (25-34) pg MCHC 32.5 (32-36) g/dL RDW Std Deviation 64.4 H (36.4-46.3) fL RDW Coeff of Geovanni 16.4 H (11.5-14.5) % Plt Count 656 H (130-400) K/uL MPV 10.2 (7.4-10.4) fL Neutrophils % (Manual) 26.3 % Lymphocytes % (Manual) 35.9 % Monocytes % (Manual) 5.3 % Basophils % (Manual) 1.8 % Neutrophils # (Manual) 9.32 H (1.4-6.5) K/uL Total Absolute Neuts 9.32 H (1.4-6.5) K/uL Lymphocytes # (Manual) 12.72 H (1.2-3.4) K/uL Total Abs Lymphocytes 23.60 H (1.2-3.4) K/uL Monocytes # (Manual) 1.88 H (0.11-0.59) K/uL Basophils # (Manual) 0.64 H (0-0.2) K/uL Large Granular Lymphs 30.7 % # Lrg Granular Lymphs 10.88 K/uL Blood Smear Review Polychromasia 1+ Echinocytes 1+ PT 11.7 (9.0-12.0) Seconds INR 1.2 H (0.9-1.1) APTT 24.5 (21.0-31.0) Seconds PTT Ratio 0.9 Sodium 138 (136-145) mmol/L Potassium (3.5-5.1) mmol/L Chloride 108 H (98-107) mmol/L Carbon Dioxide 17 L (21-32) mmol/L Anion Gap 13.0 H (3-11) BUN 43 H (7-18) mg/dl Creatinine 2.20 H (0.6-1.4) mg/dl Est Cr Clr Drug Dosing Not Reportable Est GFR ( Amer) 31.8 ml/min Est GFR (Non-Af Amer) 27.5 ml/min BUN/Creatinine Ratio 19.7 (10-20) Glucose 282 H (70-99) mg/dl Estimat Average Glucose mg/dl Hemoglobin A1c (4.5-5.6) % Lactate (0.4-2.0) mmol/L Calcium 8.3 L (8.5-10.1) mg/dl Total Bilirubin (0.2-1) mg/dl Direct Bilirubin (0-0.2) mg/dl AST (15-37) U/L ALT (12-78) U/L Alkaline Phosphatase (45-117) U/L Total Creatine Kinase (39-308) U/L CK-MB (CK-2) 6.0 H (0.5-3.6) ng/ml CK/CKMB % Calc Not Reportable Troponin I 1.410 H* (0-0.045) ng/ml NT-Pro-B Natriuret Pep (0-1800) pg/ml Total Protein (6.4-8.2) gm/dl Albumin (3.4-5.0) gm/dl Procalcitonin (0-0.5) ng/ml SARS-CoV-2 (PCR) (Negative) 03/11/21 03/11/21 03/11/21 Range/Units 01:50 02:40 03:44 WBC (4.8-10.8) K/uL RBC (4.7-6.1) M/uL Hgb (14.0-18.0) g/dL Hct (42-52) % MCV (80-100) fL MCH (25-34) pg MCHC (32-36) g/dL RDW Std Deviation (36.4-46.3) fL RDW Coeff of Geovanni (11.5-14.5) % Plt Count (130-400) K/uL MPV (7.4-10.4) fL Neutrophils % (Manual) % Lymphocytes % (Manual) % Monocytes % (Manual) % Basophils % (Manual) % Neutrophils # (Manual) (1.4-6.5) K/uL Total Absolute Neuts (1.4-6.5) K/uL Lymphocytes # (Manual) (1.2-3.4) K/uL Total Abs Lymphocytes (1.2-3.4) K/uL Monocytes # (Manual) (0.11-0.59) K/uL Basophils # (Manual) (0-0.2) K/uL Large Granular Lymphs % # Lrg Granular Lymphs K/uL Blood Smear Review Polychromasia Echinocytes PT (9.0-12.0) Seconds INR (0.9-1.1) APTT (21.0-31.0) Seconds PTT Ratio Sodium (136-145) mmol/L Potassium 5.6 H (3.5-5.1) mmol/L Chloride (98-107) mmol/L Carbon Dioxide (21-32) mmol/L Anion Gap (3-11) BUN (7-18) mg/dl Creatinine (0.6-1.4) mg/dl Est Cr Clr Drug Dosing Est GFR ( Amer) ml/min Est GFR (Non-Af Amer) ml/min BUN/Creatinine Ratio (10-20) Glucose (70-99) mg/dl Estimat Average Glucose mg/dl Hemoglobin A1c (4.5-5.6) % Lactate 3.9 H* (0.4-2.0) mmol/L Calcium (8.5-10.1) mg/dl Total Bilirubin 0.8 (0.2-1) mg/dl Direct Bilirubin 0.3 H (0-0.2) mg/dl AST 64 H (15-37) U/L ALT 74 (12-78) U/L Alkaline Phosphatase 78 (45-117) U/L Total Creatine Kinase 150 (39-308) U/L CK-MB (CK-2) (0.5-3.6) ng/ml CK/CKMB % Calc Troponin I (0-0.045) ng/ml NT-Pro-B Natriuret Pep (0-1800) pg/ml Total Protein 6.7 (6.4-8.2) gm/dl Albumin 3.3 L (3.4-5.0) gm/dl Procalcitonin (0-0.5) ng/ml SARS-CoV-2 (PCR) NEGATIVE (Negative) 03/11/21 03/11/21 03/11/21 Range/Units 03:48 04:44 04:45 WBC (4.8-10.8) K/uL RBC (4.7-6.1) M/uL Hgb (14.0-18.0) g/dL Hct (42-52) % MCV (80-100) fL MCH (25-34) pg MCHC (32-36) g/dL RDW Std Deviation (36.4-46.3) fL RDW Coeff of Geovanni (11.5-14.5) % Plt Count (130-400) K/uL MPV (7.4-10.4) fL Neutrophils % (Manual) % Lymphocytes % (Manual) % Monocytes % (Manual) % Basophils % (Manual) % Neutrophils # (Manual) (1.4-6.5) K/uL Total Absolute Neuts (1.4-6.5) K/uL Lymphocytes # (Manual) (1.2-3.4) K/uL Total Abs Lymphocytes (1.2-3.4) K/uL Monocytes # (Manual) (0.11-0.59) K/uL Basophils # (Manual) (0-0.2) K/uL Large Granular Lymphs % # Lrg Granular Lymphs K/uL Blood Smear Review Polychromasia Echinocytes PT (9.0-12.0) Seconds INR (0.9-1.1) APTT (21.0-31.0) Seconds PTT Ratio Sodium (136-145) mmol/L Potassium (3.5-5.1) mmol/L Chloride (98-107) mmol/L Carbon Dioxide (21-32) mmol/L Anion Gap (3-11) BUN (7-18) mg/dl Creatinine (0.6-1.4) mg/dl Est Cr Clr Drug Dosing Est GFR ( Amer) ml/min Est GFR (Non-Af Amer) ml/min BUN/Creatinine Ratio (10-20) Glucose (70-99) mg/dl Estimat Average Glucose mg/dl Hemoglobin A1c (4.5-5.6) % Lactate 1.8 (0.4-2.0) mmol/L Calcium (8.5-10.1) mg/dl Total Bilirubin (0.2-1) mg/dl Direct Bilirubin (0-0.2) mg/dl AST (15-37) U/L ALT (12-78) U/L Alkaline Phosphatase (45-117) U/L Total Creatine Kinase (39-308) U/L CK-MB (CK-2) (0.5-3.6) ng/ml CK/CKMB % Calc Troponin I 2.200 H* (0-0.045) ng/ml NT-Pro-B Natriuret Pep 32810 H (0-1800) pg/ml Total Protein (6.4-8.2) gm/dl Albumin (3.4-5.0) gm/dl Procalcitonin 0.13 (0-0.5) ng/ml SARS-CoV-2 (PCR) (Negative) 03/11/21 Range/Units 04:45 WBC (4.8-10.8) K/uL RBC (4.7-6.1) M/uL Hgb (14.0-18.0) g/dL Hct (42-52) % MCV (80-100) fL MCH (25-34) pg MCHC (32-36) g/dL RDW Std Deviation (36.4-46.3) fL RDW Coeff of Geovanni (11.5-14.5) % Plt Count (130-400) K/uL MPV (7.4-10.4) fL Neutrophils % (Manual) % Lymphocytes % (Manual) % Monocytes % (Manual) % Basophils % (Manual) % Neutrophils # (Manual) (1.4-6.5) K/uL Total Absolute Neuts (1.4-6.5) K/uL Lymphocytes # (Manual) (1.2-3.4) K/uL Total Abs Lymphocytes (1.2-3.4) K/uL Monocytes # (Manual) (0.11-0.59) K/uL Basophils # (Manual) (0-0.2) K/uL Large Granular Lymphs % # Lrg Granular Lymphs K/uL Blood Smear Review Polychromasia Echinocytes PT (9.0-12.0) Seconds INR (0.9-1.1) APTT (21.0-31.0) Seconds PTT Ratio Sodium (136-145) mmol/L Potassium (3.5-5.1) mmol/L Chloride (98-107) mmol/L Carbon Dioxide (21-32) mmol/L Anion Gap (3-11) BUN (7-18) mg/dl Creatinine (0.6-1.4) mg/dl Est Cr Clr Drug Dosing Est GFR ( Amer) ml/min Est GFR (Non-Af Amer) ml/min BUN/Creatinine Ratio (10-20) Glucose (70-99) mg/dl Estimat Average Glucose 105 mg/dl Hemoglobin A1c 5.3 (4.5-5.6) % Lactate (0.4-2.0) mmol/L Calcium (8.5-10.1) mg/dl Total Bilirubin (0.2-1) mg/dl Direct Bilirubin (0-0.2) mg/dl AST (15-37) U/L ALT (12-78) U/L Alkaline Phosphatase (45-117) U/L Total Creatine Kinase (39-308) U/L CK-MB (CK-2) (0.5-3.6) ng/ml CK/CKMB % Calc Troponin I (0-0.045) ng/ml NT-Pro-B Natriuret Pep (0-1800) pg/ml Total Protein (6.4-8.2) gm/dl Albumin (3.4-5.0) gm/dl Procalcitonin (0-0.5) ng/ml SARS-CoV-2 (PCR) (Negative) Administered Medications Discontinued Medications Amiodarone HCl/Dextrose (Amiodarone 150mg / 100ml D5w) Confirm Administered Dose 150 mg IV .Monitor-Lyatiss ONE Stop: 03/11/21 20:33 Last Admin: 03/11/21 20:37 Dose: Not Given Documented by: [id number] Amiodarone HCl/Dextrose (Amiodarone 360mg / 200ml D5w) Confirm Administered Dose 360 mg IV .Family-MingleK-MED ONE Stop: 03/11/21 20:33 Last Admin: 03/11/21 20:37 Dose: Not Given Documented by: [id number] Amiodarone HCl (Amiodarone 200 Mg Tab) 200 mg PO TID [facility] Stop: 04/13/21 13:59 Last Admin: 03/17/21 08:18 Dose: 200 mg Documented by: [id number] Admin: 03/16/21 20:52 Dose: 200 mg Documented by: [id number] Admin: 03/16/21 14:35 Dose: 200 mg Documented by: [id number] Admin: 03/16/21 08:11 Dose: 200 mg Documented by: [id number] Admin: 03/15/21 20:31 Dose: 200 mg Documented by: [id number] Admin: 03/15/21 13:46 Dose: 200 mg Documented by: [id number] Admin: 03/15/21 08:12 Dose: 200 mg Documented by: [id number] Admin: 03/14/21 20:21 Dose: 200 mg Documented by: [id number] Admin: 03/14/21 14:34 Dose: 200 mg Documented by: [id number] Amiodarone HCl (Amiodarone 200 Mg Tab) 200 mg PO BID ABAD Stop: 04/16/21 20:59 Last Admin: 03/20/21 08:15 Dose: 200 mg Documented by: [id number] Admin: 03/19/21 20:20 Dose: 200 mg Documented by: [id number] Admin: 03/19/21 09:06 Dose: 200 mg Documented by: [id number] Admin: 03/18/21 21:00 Dose: 200 mg Documented by: [id number] Admin: 03/18/21 09:10 Dose: 200 mg Documented by: [id number] Admin: 03/17/21 21:00 Dose: 200 mg Documented by: [id number] Amlodipine Besylate (Amlodipine Besylate 5 Mg Tab) 2.5 mg PO DAILY [facility]AD Stop: 04/10/21 08:59 Last Admin: 03/12/21 08:26 Dose: 2.5 mg Documented by: [id number] Admin: 03/11/21 09:35 Dose: 2.5 mg Documented by: [id number] Aspirin (Aspirin 81 Mg Ectab) 81 mg PO QAM ABAD Stop: 04/11/21 08:59 Last Admin: 03/20/21 08:15 Dose: 81 mg Documented by: [id number] Admin: 03/19/21 09:06 Dose: 81 mg Documented by: [id number] Admin: 03/18/21 09:10 Dose: 81 mg Documented by: [id number] Admin: 03/17/21 08:18 Dose: 81 mg Documented by: [id number] Admin: 03/16/21 08:09 Dose: 81 mg Documented by: [id number] Admin: 03/15/21 08:11 Dose: 81 mg Documented by: [id number] Admin: 03/14/21 08:18 Dose: 81 mg Documented by: [id number] Admin: 03/13/21 08:09 Dose: 81 mg Documented by: [id number] Admin: 03/12/21 08:26 Dose: 81 mg Documented by: [id number] Atorvastatin Calcium (Atorvastatin 40 Mg Tab) 40 mg PO HS [facility] Stop: 04/15/21 20:59 Last Admin: 03/19/21 20:20 Dose: 40 mg Documented by: [id number] Admin: 03/18/21 21:01 Dose: 40 mg Documented by: [id number] Admin: 03/17/21 20:58 Dose: Not Given Documented by: [id number] Admin: 03/16/21 20:56 Dose: Not Given Documented by: [id number] Bupivacaine HCl (Bupivacaine 0.5 % 5 Mg/1 Ml Mpf 30ml Vial) Confirm Administered Dose 30 ml .ROUTE .STCapstory-MED ONE Stop: 03/12/21 17:11 Last Admin: 03/12/21 17:17 Dose: 20 ml Documented by: [id number] Bupivacaine HCl (Bupivacaine 0.5 % 5 Mg/1 Ml Mpf 30ml Vial) Confirm Administered Dose 30 ml .ROUTE .STCapstory-Lyatiss ONE Stop: 03/12/21 17:23 Last Admin: 03/12/21 18:14 Dose: Not Given Documented by: [id number] Cefazolin Sodium (Cefazolin 250 Mg/Ml 1 Gm Vial) Confirm Administered Dose 1,000 mg .ROUTE .STVeysoft ONE Stop: 03/12/21 16:31 Last Admin: 03/12/21 18:12 Dose: Not Given Documented by: [id number] Epoetin Abel (Epoetin Abel 10,000 Units/Ml Vial) 10,000 units SQ TODAY@0700 [facility] Stop: 03/17/21 16:00 Last Admin: 03/17/21 08:20 Dose: 10,000 units Documented by: [id number] Epoetin Abel (Epoetin Abel 10,000 Units/Ml Vial) 10,000 units SQ TODAY@0930 [facility] Stop: 03/17/21 16:00 Last Admin: 03/17/21 10:38 Dose: 10,000 units Documented by: [id number] Furosemide (Furosemide 40 Mg/4 Ml Vial) Confirm Administered Dose 40 mg IV .STCapstory- MED ONE Stop: 03/11/21 02:29 Last Admin: 03/11/21 02:34 Dose: 40 mg Documented by: [id number] Furosemide (Furosemide 40 Mg Tab) [facility] Stop: 04/16/21 08:59 Last Admin: 03/20/21 08:15 Dose: 40 mg Documented by: [id number] Admin: 03/19/21 09:06 Dose: 40 mg Documented by: [id number] Admin: 03/18/21 09:10 Dose: 40 mg Documented by: [id number] Admin: 03/17/21 10:13 Dose: 40 mg Documented by: [id number] Gelatin (Gelatin Sponge Sz 100) Confirm Administered Dose 1 ea .ROUTE .STK-MED ONE Stop: 03/12/21 16:31 Last Admin: 03/12/21 18:16 Dose: Not Given Documented by: [id number] Heparin Sodium (Porcine) (Heparin Sod (Porcine) 1000 Unit/Ml) 1 units IV NOW ONE Stop: 03/11/21 03:57 Last Admin: 03/11/21 05:13 Dose: 4,000 units Documented by: [id number] Cosigned by: [id number] Heparin Sodium (Porcine) (Heparin Sod (Porcine) 1000 Unit/Ml) 3,000 units IV NOW ONE Stop: 03/11/21 11:46 Last Admin: 03/11/21 12:22 Dose: 3,000 units Documented by: [id number] Cosigned by: [id number] Heparin Sodium (Porcine) (Heparin Sod (Porcine) 1000 Unit/Ml) Confirm Administered Dose 1,000 units .ROUTE .STK-MED ONE Stop: 03/12/21 16:29 Last Admin: 03/12/21 18:00 Dose: 200 units Documented by: [id number] Cosigned by: [id number] Heparin Sodium/Dextrose (Heparin Iv Adult Wt-Based Low-Dose With Bolus Protocol) 1 ea N/A NOW STA; Protocol Stop: 03/11/21 03:42 Last Admin: 03/11/21 07:46 Dose: Not Given Documented by: [id number] Heparin Sodium/Dextrose (Heparin Sodium/Dextrose) 25,000 units in 500 mls @ 19 mls/hr IV .Q24H ABAD; Protocol Stop: 04/10/21 03:59 Last Titration: 03/20/21 07:47 Dose: 0 units/hr, 0 mls/hr Documented by: [id number] Cosigned by: [id number] Titration: 03/20/21 07:29 Dose: 950 units/hr, 19 mls/hr Documented by: [id number] Cosigned by: [id number] Titration: 03/20/21 06:52 Dose: 1,050 units/hr, 21 mls/hr Documented by: [id number] Cosigned by: [id number] Admin: 03/20/21 05:34 Dose: 1,050 units/hr, 21 mls/hr Documented by: [id number] Cosigned by: [id number] Titration: 03/20/21 05:34 Dose: 1,050 units/hr, 21 mls/hr Documented by: [id number] Cosigned by: [id number] Titration: 03/19/21 18:54 Dose: 1,050 units/hr, 21 mls/hr Documented by: [id number] Cosigned by: [id number] Titration: 03/19/21 09:45 Dose: 1,050 units/hr, 21 mls/hr Documented by: [id number] Cosigned by: [id number] Admin: 03/19/21 06:12 Dose: 1,150 units/hr, 23 mls/hr Documented by: [id number] Cosigned by: [id number] Titration: 03/19/21 06:12 Dose: 1,150 units/hr, 23 mls/hr Documented by: [id number] Cosigned by: [id number] Titration: 03/18/21 18:50 Dose: 1,150 units/hr, 23 mls/hr Documented by: [id number] Cosigned by: [id number] Admin: 03/18/21 11:28 Dose: 1,150 units/hr, 23 mls/hr Documented by: [id number] Cosigned by: [id number] Titration: 03/18/21 11:28 Dose: 1,150 units/hr, 23 mls/hr Documented by: [id number] Cosigned by: [id number] Admin: 03/18/21 11:27 Dose: Not Given Documented by: [id number] Admin: 03/18/21 11:27 Dose: Not Given Documented by: [id number] Admin: 03/18/21 09:08 Dose: 1,150 units/hr, 23 mls/hr Documented by: [id number] Cosigned by: [id number] Titration: 03/18/21 08:56 Dose: 1,150 units/hr, 23 mls/hr Documented by: [id number] Cosigned by: [id number] Titration: 03/18/21 06:59 Dose: 1,150 units/hr, 23 mls/hr Documented by: [id number] Cosigned by: [id number] Titration: 03/17/21 19:41 Dose: 1,250 units/hr, 25 mls/hr Documented by: [id number] Cosigned by: [id number] Titration: 03/17/21 14:36 Dose: 1,250 units/hr, 25 mls/hr Documented by: [id number] Cosigned by: [id number] Admin: 03/17/21 12:46 Dose: 1,250 units/hr, 25 mls/hr Documented by: [id number] Cosigned by: [id number] Titration: 03/17/21 12:46 Dose: 1,250 units/hr, 25 mls/hr Documented by: [id number] Cosigned by: [id number] Titration: 03/17/21 07:45 Dose: 1,250 units/hr, 25 mls/hr Documented by: [id number] Cosigned by: [id number] Titration: 03/16/21 19:14 Dose: 1,350 units/hr, 27 mls/hr Documented by: [id number] Cosigned by: [id number] Admin: 03/16/21 17:59 Dose: 1,350 units/hr, 27 mls/hr Documented by: [id number] Cosigned by: [id number] Titration: 03/16/21 17:50 Dose: 0 units/hr, 0 mls/hr Documented by: [id number] Cosigned by: [id number] Titration: 03/16/21 06:59 Dose: 1,350 units/hr, 27 mls/hr Documented by: [id number] Cosigned by: [id number] Titration: 03/16/21 06:43 Dose: 1,350 units/hr, 27 mls/hr Documented by: [id number] Cosigned by: [id number] Titration: 03/15/21 23:18 Dose: 1,350 units/hr, 27 mls/hr Documented by: [id number] Cosigned by: [id number] Admin: 03/15/21 23:18 Dose: 1,350 units/hr, 27 mls/hr Documented by: [id number] Cosigned by: [id number] Admin: 03/15/21 19:01 Dose: Not Given Documented by: [id number] Admin: 03/15/21 19:01 Dose: Not Given Documented by: [id number] Admin: 03/15/21 19:01 Dose: Not Given Documented by: [id number] Titration: 03/15/21 18:58 Dose: 1,350 units/hr, 27 mls/hr Documented by: [id number] Cosigned by: [id number] Titration: 03/15/21 15:37 Dose: 1,350 units/hr, 27 mls/hr Documented by: [id number] Cosigned by: [id number] Titration: 03/15/21 07:51 Dose: 1,350 units/hr, 27 mls/hr Documented by: [id number] Cosigned by: [id number] Titration: 03/15/21 07:14 Dose: 1,250 units/hr, 25 mls/hr Documented by: [id number] Cosigned by: [id number] Admin: 03/15/21 05:48 Dose: 1,250 units/hr, 25 mls/hr Documented by: [id number] Cosigned by: [id number] Titration: 03/15/21 05:48 Dose: 1,250 units/hr, 25 mls/hr Documented by: [id number] Cosigned by: [id number] Titration: 03/14/21 19:07 Dose: 1,250 units/hr, 25 mls/hr Documented by: [id number] Cosigned by: [id number] Admin: 03/14/21 10:34 Dose: 1,250 units/hr, 25 mls/hr Documented by: [id number] Cosigned by: [id number] Titration: 03/14/21 10:34 Dose: 0 units/hr, 0 mls/hr Documented by: [id number] Cosigned by: [id number] Titration: 03/14/21 07:03 Dose: 1,250 units/hr, 25 mls/hr Documented by: [id number] Cosigned by: [id number] Admin: 03/13/21 13:26 Dose: 1,250 units/hr, 25 mls/hr Documented by: [id number] Cosigned by: [id number] Titration: 03/13/21 12:28 Dose: 1,250 units/hr, 25 mls/hr Documented by: [id number] Cosigned by: [id number] Titration: 03/13/21 06:54 Dose: 1,250 units/hr, 25 mls/hr Documented by: [id number] Cosigned by: [id number] Titration: 03/12/21 23:05 Dose: 1,250 units/hr, 25 mls/hr Documented by: [id number] Cosigned by: [id number] Admin: 03/12/21 15:33 Dose: 1,100 units/hr, 22 mls/hr Documented by: [id number] Cosigned by: [id number] Titration: 03/12/21 04:13 Dose: 0 units/hr, 0 mls/hr Documented by: [id number] Cosigned by: [id number] Titration: 03/12/21 04:07 Dose: 0 units/hr, 0 mls/hr Documented by: [id number] Cosigned by: [id number] Titration: 03/11/21 19:22 Dose: 1,100 units/hr, 22 mls/hr Documented by: [id number] Cosigned by: [id number] Titration: 03/11/21 18:44 Dose: 1,100 units/hr, 22 mls/hr Documented by: [id number] Cosigned by: [id number] Titration: 03/11/21 11:30 Dose: 950 units/hr, 19 mls/hr Documented by: [id number] Cosigned by: [id number] Admin: 03/11/21 05:18 Dose: 800 units/hr, 16 mls/hr Documented by: [id number] Cosigned by: [id number] Piperacillin Sod/Tazobactam Sod (Zosyn) 4.5 gm in 120 mls @ 200 mls/hr IV NOW STA; Protocol Stop: 03/11/21 08:05 Last Infusion: 03/11/21 10:13 Dose: 0 mls/hr Documented by: [id number] Admin: 03/11/21 09:35 Dose: 200 mls/hr Documented by: [id number] Piperacillin Sod/Tazobactam (Sod 3.375 gm/ Dextrose) 115 mls @ 28.75 mls/hr IV Q8H ABAD; Protocol Stop: 03/18/21 11:59 Last Admin: 03/11/21 15:48 Dose: Not Given Documented by: [id number] Ceftriaxone Sodium 2,000 mg/ (Dextrose) 70 mls @ 140 mls/hr IV Q24H ABAD; Protocol Stop: 03/13/21 15:59 Last Infusion: 03/12/21 16:35 Dose: 0 mls/hr Documented by: [id number] Admin: 03/12/21 16:00 Dose: 140 mls/hr Documented by: [id number] Infusion: 03/11/21 18:26 Dose: 0 mls/hr Documented by: [id number] Admin: 03/11/21 17:48 Dose: 140 mls/hr Documented by: [id number] Furosemide 20 mg/ Syringe 2 mls @ 4 mls/min IV Q6H ABAD Stop: 04/10/21 17:59 Last Admin: 03/11/21 17:48 Dose: 4 mls/min Documented by: [id number] Heparin Sodium (Porcine) 3,000 (units/ Syringe) 3 mls @ 10 mls/min IV ONE ONE Stop: 03/11/21 19:01 Last Admin: 03/11/21 19:57 Dose: 10 mls/min Documented by: [id number] Cosigned by: [id number] Amiodarone HCl/Dextrose (Nexterone / D5w) 150 mg in 100 mls @ 600 mls/hr IV 2045 ONE Stop: 03/11/21 20:54 Last Infusion: 03/11/21 21:01 Dose: 0 mls/hr Documented by: [id number] Cosigned by: [id number] Admin: 03/11/21 20:38 Dose: 600 mls/hr Documented by: [id number] Cosigned by: [id number] Amiodarone HCl/Dextrose (Nexterone / D5w) 360 mg in 200 mls @ 33.333 mls/hr IV 2100 ONE Stop: 03/12/21 02:59 Last Infusion: 03/14/21 06:31 Dose: 0 mls/hr Documented by: [id number] Cosigned by: [id number] Infusion: 03/12/21 02:57 Dose: 0 mls/hr Documented by: [id number] Cosigned by: [id number] Admin: 03/11/21 20:59 Dose: 33.3 mls/hr Documented by: [id number] Cosigned by: [id number] Amiodarone HCl/Dextrose (Nexterone / D5w) 360 mg in 200 mls @ 16.667 mls/hr IV .Q12H ABAD Stop: 04/11/21 02:59 Last Infusion: 03/14/21 13:07 Dose: 0 mg/min, 0 mls/hr Documented by: [id number] Cosigned by: [id number] Admin: 03/14/21 03:28 Dose: 0.5 mg/min, 16.7 mls/hr Documented by: [id number] Cosigned by: [id number] Infusion: 03/14/21 03:28 Dose: 0.5 mg/min, 16.7 mls/hr Documented by: [id number] Cosigned by: [id number] Admin: 03/13/21 15:30 Dose: 0.5 mg/min, 16.7 mls/hr Documented by: [id number] Cosigned by: [id number] Infusion: 03/13/21 15:10 Dose: 0.5 mg/min, 16.7 mls/hr Documented by: [id number] Cosigned by: [id number] Infusion: 03/13/21 06:54 Dose: 0.5 mg/min, 16.7 mls/hr Documented by: [id number] Cosigned by: [id number] Admin: 03/13/21 03:11 Dose: 0.5 mg/min, 16.7 mls/hr Documented by: [id number] Cosigned by: [id number] Infusion: 03/13/21 03:02 Dose: 0.5 mg/min, 16.7 mls/hr Documented by: [id number] Cosigned by: [id number] Admin: 03/12/21 15:03 Dose: 0.5 mg/min, 16.7 mls/hr Documented by: [id number] Cosigned by: [id number] Infusion: 03/12/21 14:56 Dose: 0.5 mg/min, 16.7 mls/hr Documented by: [id number] Cosigned by: [id number] Admin: 03/12/21 02:57 Dose: 0.5 mg/min, 16.7 mls/hr Documented by: [id number] Cosigned by: [id number] Furosemide 60 mg/ Syringe 6 mls @ 4 mls/min IV ONE ONE Stop: 03/12/21 08:16 Last Admin: 03/12/21 08:50 Dose: 4 mls/min Documented by: [id number] Furosemide 20 mg/ Syringe 2 mls @ 4 mls/min IV Q8 ABAD Stop: 04/11/21 15:59 Last Admin: 03/17/21 06:32 Dose: 4 mls/min Documented by: [id number] Admin: 03/16/21 20:51 Dose: 4 mls/min Documented by: [id number] Admin: 03/16/21 14:35 Dose: 4 mls/min Documented by: [id number] Admin: 03/16/21 06:03 Dose: 4 mls/min Documented by: [id number] Admin: 03/15/21 23:17 Dose: 4 mls/min Documented by: [id number] Admin: 03/15/21 13:46 Dose: 4 mls/min Documented by: [id number] Admin: 03/15/21 05:48 Dose: 4 mls/min Documented by: [id number] Admin: 03/14/21 21:38 Dose: 4 mls/min Documented by: [id number] Admin: 03/14/21 14:25 Dose: 4 mls/min Documented by: [id number] Admin: 03/14/21 05:56 Dose: 4 mls/min Documented by: [id number] Admin: 03/13/21 21:26 Dose: 4 mls/min Documented by: [id number] Admin: 03/13/21 13:28 Dose: 4 mls/min Documented by: [id number] Admin: 03/13/21 08:14 Dose: 4 mls/min Documented by: [id number] Admin: 03/12/21 21:38 Dose: 4 mls/min Documented by: [id number] Admin: 03/12/21 15:51 Dose: 4 mls/min Documented by: [id number] Heparin Sodium (Porcine) 5,000 (units/ Syringe) 500 mls @ 1 mls/min IV ONCE ONE Stop: 03/13/21 02:37 Last Admin: 03/12/21 18:25 Dose: Not Given Documented by: [id number] Heparin Sodium (Porcine) 3,000 (units/ Syringe) 3 mls @ 10 mls/min IV NOW ONE Stop: 03/12/21 22:46 Last Admin: 03/12/21 23:04 Dose: 10 mls/min Documented by: [id number] Cosigned by: [id number] Insulin Aspart (Insulin Aspart 100 Units/Ml 3 Ml Pen) 0 units SC ACHS ABAD Stop: 04/11/21 07:29 Last Admin: 03/20/21 13:04 Dose: Not Given Documented by: [id number] Cosigned by: [id number] Admin: 03/20/21 09:33 Dose: Not Given Documented by: [id number] Cosigned by: [id number] Admin: 03/19/21 21:22 Dose: Not Given Documented by: [id number] Cosigned by: [id number] Admin: 03/19/21 17:37 Dose: Not Given Documented by: [id number] Admin: 03/19/21 11:34 Dose: Not Given Documented by: [id number] Admin: 03/19/21 09:05 Dose: Not Given Documented by: [id number] Admin: 03/18/21 21:00 Dose: Not Given Documented by: [id number] Cosigned by: [id number] Admin: 03/18/21 17:22 Dose: Not Given Documented by: [id number] Admin: 03/18/21 12:34 Dose: Not Given Documented by: [id number] Admin: 03/18/21 09:09 Dose: Not Given Documented by: [id number] Admin: 03/17/21 20:51 Dose: Not Given Documented by: [id number] Cosigned by: [id number] Admin: 03/17/21 16:33 Dose: Not Given Documented by: [id number] Admin: 03/17/21 11:19 Dose: Not Given Documented by: [id number] Admin: 03/17/21 07:37 Dose: Not Given Documented by: [id number] Admin: 03/16/21 20:51 Dose: Not Given Documented by: [id number] Admin: 03/16/21 16:43 Dose: Not Given Documented by: [id number] Admin: 03/16/21 11:48 Dose: Not Given Documented by: [id number] Admin: 03/16/21 08:15 Dose: Not Given Documented by: [id number] Admin: 03/15/21 20:30 Dose: Not Given Documented by: [id number] Admin: 03/15/21 16:16 Dose: Not Given Documented by: [id number] Admin: 03/15/21 11:57 Dose: Not Given Documented by: [id number] Admin: 03/15/21 07:44 Dose: Not Given Documented by: [id number] Admin: 03/14/21 20:21 Dose: Not Given Documented by: [id number] Admin: 03/14/21 17:50 Dose: Not Given Documented by: [id number] Cosigned by: [id number] Admin: 03/14/21 11:20 Dose: Not Given Documented by: [id number] Cosigned by: [id number] Admin: 03/14/21 08:52 Dose: Not Given Documented by: [id number] Cosigned by: [id number] Admin: 03/13/21 21:25 Dose: Not Given Documented by: [id number] Cosigned by: [id number] Admin: 03/13/21 17:31 Dose: Not Given Documented by: [id number] Admin: 03/13/21 12:22 Dose: Not Given Documented by: [id number] Cosigned by: [id number] Admin: 03/13/21 08:07 Dose: Not Given Documented by: [id number] Admin: 03/13/21 06:57 Dose: Not Given Documented by: [id number] Cosigned by: [id number] Admin: 03/13/21 06:57 Dose: Not Given Documented by: [id number] Cosigned by: [id number] Admin: 03/12/21 12:00 Dose: Not Given Documented by: [id number] Cosigned by: [id number] Admin: 03/12/21 08:00 Dose: Not Given Documented by: [id number] Cosigned by: [id number] Levothyroxine Sodium (Levothyroxine Sodium 75 Mcg Tablet) 75 mcg PO DAILYBB [facility] Stop: 04/11/21 06:29 Last Admin: 03/20/21 05:34 Dose: 75 mcg Documented by: [id number] Admin: 03/19/21 06:13 Dose: 75 mcg Documented by: [id number] Admin: 03/18/21 06:25 Dose: 75 mcg Documented by: [id number] Admin: 03/17/21 06:32 Dose: 75 mcg Documented by: [id number] Admin: 03/16/21 05:32 Dose: 75 mcg Documented by: [id number] Admin: 03/15/21 05:48 Dose: 75 mcg Documented by: [id number] Admin: 03/14/21 05:37 Dose: 75 mcg Documented by: [id number] Admin: 03/13/21 08:03 Dose: 75 mcg Documented by: [id number] Admin: 03/12/21 06:04 Dose: 75 mcg Documented by: [id number] Lidocaine HCl (Lidocaine 1% Local 20 Ml Vial) Confirm Administered Dose 20 ml .ROUTE .STK-MED ONE Stop: 03/12/21 17:11 Last Admin: 03/12/21 17:17 Dose: 20 ml Documented by: [id number] Lidocaine HCl (Lidocaine 1% Local 20 Ml Vial) Confirm Administered Dose 20 ml .ROUTE .STK-MED ONE Stop: 03/12/21 17:23 Last Admin: 03/12/21 18:14 Dose: Not Given Documented by: [id number] Metoprolol Succinate (Metoprolol Succ 25mg Ext Rel Tab) 12.5 mg PO QAM ABAD Stop: 04/10/21 11:44 Last Admin: 03/13/21 09:32 Dose: 12.5 mg Documented by: [id number] Admin: 03/12/21 08:25 Dose: 12.5 mg Documented by: [id number] Admin: 03/11/21 13:30 Dose: 12.5 mg Documented by: [id number] Metoprolol Tartrate (Metoprolol Tartrate 1 Mg/Ml Vial) 5 mg IV NOW STA Stop: 03/11/21 20:17 Last Admin: 03/11/21 21:08 Dose: Not Given Documented by: [id number] Metoprolol Tartrate (Metoprolol Tartrate 1 Mg/Ml Vial) 5 mg IV NOW STA Stop: 03/12/21 10:44 Last Admin: 03/12/21 11:00 Dose: 5 mg Documented by: [id number] Metoprolol Tartrate (Metoprolol Tartrate 25 Mg Tab) 25 mg PO NOW ONE Stop: 03/12/21 10:45 Last Admin: 03/12/21 13:19 Dose: 25 mg Documented by: [id number] Metoprolol Tartrate (Metoprolol Tartrate 25 Mg Tab) 12.5 mg PO BID ABAD Stop: 04/12/21 20:59 Last Admin: 03/20/21 08:15 Dose: 12.5 mg Documented by: [id number] Admin: 03/19/21 20:20 Dose: 12.5 mg Documented by: [id number] Admin: 03/19/21 09:06 Dose: 12.5 mg Documented by: [id number] Admin: 03/18/21 21:01 Dose: 12.5 mg Documented by: [id number] Admin: 03/18/21 09:10 Dose: 12.5 mg Documented by: [id number] Admin: 03/17/21 20:58 Dose: 12.5 mg Documented by: [id number] Admin: 03/17/21 08:18 Dose: 12.5 mg Documented by: [id number] Admin: 03/16/21 20:52 Dose: 12.5 mg Documented by: [id number] Admin: 03/16/21 08:10 Dose: 12.5 mg Documented by: [id number] Admin: 03/15/21 20:32 Dose: 12.5 mg Documented by: [id number] Admin: 03/15/21 08:12 Dose: 12.5 mg Documented by: [id number] Admin: 03/14/21 20:21 Dose: 12.5 mg Documented by: [id number] Admin: 03/14/21 08:18 Dose: 12.5 mg Documented by: [id number] Admin: 03/13/21 20:27 Dose: 12.5 mg Documented by: [id number] Miscellaneous (Patient's Height Needed) 1 ea N/A Q2H ABAD Stop: 04/10/21 05:59 Last Admin: 03/11/21 11:01 Dose: Not Given Documented by: [id number] Admin: 03/11/21 09:35 Dose: Not Given Documented by: [id number] Admin: 03/11/21 07:46 Dose: Not Given Documented by: [id number] Miscellaneous Information (Patient's Allergy Info Needs Entered) 1 ea N/A Q30M [facility] Stop: 04/10/21 06:29 Last Admin: 03/11/21 07:47 Dose: Not Given Documented by: [id number] Admin: 03/11/21 07:47 Dose: Not Given Documented by: [id number] Oxycodone/Acetaminophen (Oxycodone/Acetaminophen 5mg/325mg Tab) 1 - 2 tab PO Q4H PRN PRN Reason: Moderate Pain Stop: 03/26/21 19:15 Last Admin: 03/13/21 09:30 Dose: 1 tab Documented by: [id number] Polyethylene Glycol (Polyethylene (Miralax) 17 Gm Pack) 17 gm PO DAILY PRN PRN Reason: Constipation Stop: 04/10/21 07:30 Last Admin: 03/20/21 08:10 Dose: 17 gm Documented by: [id number] Potassium Chloride (Potassium Chloride Crtab 20 Meq Tabcr) 40 meq PO NOW STA Stop: 03/15/21 08:50 Last Admin: 03/15/21 09:10 Dose: 40 meq Documented by: [id number] Thrombin (Thrombin For Soln 85083 Unit Kit) Confirm Administered Dose 20,000 units .ROUTE .STK-MED ONE Stop: 03/12/21 16:31 Last Admin: 03/12/21 18:15 Dose: Not Given Documented by: [id number] Warfarin Sodium (Warfarin Sod 5 Mg Tab) 5 mg PO DAILY@1600 ABAD Stop: 04/14/21 15:59 Last Admin: 03/19/21 16:42 Dose: 5 mg Documented by: [id number] Admin: 03/18/21 17:05 Dose: 5 mg Documented by: [id number] Admin: 03/17/21 15:09 Dose: 5 mg Documented by: [id number] Admin: 03/16/21 17:01 Dose: 5 mg Documented by: [id number] Admin: 03/15/21 16:50 Dose: 5 mg Documented by: [id number] Imaging Data Radiologist's Impression: Chest X-Ray 03/11/21 01:50 XR chest 1V portable HISTORY: 80 years-old Male SOB acute shortness of breath COMPARISON: None TECHNIQUE: Portable AP view of the chest FINDINGS: Cardiac silhouette is enlarged. Pulmonary vascular congestion with asymmetric right hilar prominence. Calcified plaque of the thoracic aorta. No pneumothorax. Layering pleural effusions with right greater than left bibasilar consolidation. Mixed interstitial and alveolar opacities. Degenerative changes of the shoulders and spine. IMPRESSION: 1. Cardiomegaly with pulmonary edema and layering pleural effusions. 2. Right perihilar and right lung base predominant airspace opacities. Superimposed pneumonia would be difficult to exclude. ACT 112: Negative or not required by law. The above report was generated using voice recognition software. It may contain grammatical, syntax or spelling errors. Electronically signed by: Shayne Moran M.D. 03/11/2021 6:57 AM Discharge Plan Visit Data Chief Complaint: Respiratory Distress Stated Complaint: RESPIRATORY DISTRESS ED Provider: Rolanda Hernadez Discharge Problem: Acute decompensated heart failure, Acute respiratory failure, CLL (chronic lymphocytic leukemia) Patient Disposition: Admitted As Inpatient Condition: Good Discharge Instructions Interventions: ED Discharge Assessment Last Done: 03/11/21 10:07 Discharge Problem: Acute respiratory failure Qualifiers: Respiratory failure complication: hypoxia Qualified Code(s): J96.01 - Acute respiratory failure with hypoxia
--- NOTE | 2021-03-11 17:12 | Communication Note ---
Date of Service: March 11, 2021 Increase furosemide to 20 mg IV q 6 hours, next dose due at 1800. Monitor renal function.
[2021-03-11 17:37] LABS: Appearance Urine Turbid (Clear); Bacteria Urine Automated Negative (Negative); Bilirubin Urine Negative (Negative); Blood Urine 3+ (Negative); Color Urine Orange; Glucose Urine UA Negative (Negative); Ketones Urine Trace (Negative); Leukocyte Esterase Urine 1+ (Negative); Nitrite Urine Negative (Negative); Protein Urine 2+ (Negative); Specific Gravity Urine 1.019 (1.000-1.030); Urobilinogen Urine Negative (Negative)
[2021-03-11] MEDS: cefTRIAXone SODIUM 2,000 MG in DEXTROSE 5% 50 ML IV SCH (17:48)
[2021-03-11] MEDS ORDERED: FUROSEMIDE 20 MG in SYRINGE 0 ML IV SCH (18:00)
[2021-03-11 18:06] LABS: RBC Urine Automated >30 /hpf (0-4)
[2021-03-11 18:39] LABS: Partial Thromboplastin Ratio 1.4; Partial Thromboplastin Time 36.1 Seconds (21.0-31.0)
--- NOTE | 2021-03-11 18:58 | Communication Note ---
Date of Service: March 11, 2021 Per patient request, I called his son, Grey, and provided updates. land line : [phone] mobile [phone] Will hold heparin at 4 am, and discuss possibility of thoracentesis with pulmonary tomorrow. Updated patient's nurse with regards to echo results, new lasix order, heparin hold order.
[2021-03-11] MEDS ORDERED: HEPARIN IV BOLUS 3,000 UNITS in SYRINGE 0 ML IV ONE (19:00)
[2021-03-11 20:11] LABS: Basophils # (auto) 0.01 K/uL (0-0.2); Basophils % (auto) 0.1 %; Eosinophils # (auto) 0.01 K/uL (0-0.5); Eosinophils % (auto) 0.1 %; Hematocrit (blood only) 33.8 % (42-52); Hemoglobin 11.3 g/dL (14.0-18.0); Immature Granulocytes # (auto) 0.06 K/uL (0.00-0.02); Immature Granulocytes % (auto) 0.4 %; Lymphocytes # (auto) 3.38 K/uL (1.2-3.4); Lymphocytes % (auto) 24.4 %; Mean Corpuscular Volume 104.6 fL (80-100); Monocytes # (auto) 0.55 K/uL (0.11-0.59); Neutrophils # (auto) 9.83 K/uL (1.4-6.5); Platelet Count 608 K/uL (130-400); RDW Coefficient of Variation 16.1 % (11.5-14.5); RDW Standard Deviation 60.9 fL (36.4-46.3); Red Blood Count 3.23 M/uL (4.7-6.1); White Blood Count 13.84 K/uL (4.8-10.8)
[2021-03-11 20:13] LABS: Mean Corpuscular Hgb Conc 33.4 g/dL (32-36)
[2021-03-11] MEDS ORDERED: METOPROLOL TARTRATE 1 MG/ML VIAL IV STA (20:16)
--- NOTE | 2021-03-11 20:20 | Hospitalist Progress Note ---
Date of Service March 11, 2021 Assessment & Plan (1) Acute respiratory failure: (2) Acute decompensated heart failure: (3) Acute kidney injury superimposed on chronic kidney disease: (4) Hyperglycemia: (5) Elevated troponin: Plan: Amiodarone infusion with bolus started now. With improved CXR and worsening creatinine, will hold midnight dose of Lasix and resume in am pending clinical picture at that time. EKG unchanged and troponin slightly bumped 1.41-> 2.2->9.52->10.7 with clinical picture not suggestive of acute plaque rupture. No chest pain. Monitor lytes. Elevated phos may be from renal failure. K and Mg are within normal limits. DO Dario Admission and Anticipated Discharge Date Admission Date: March 11, 2021 Subjective 2000: Contacted by nurse that patient was reporting worsening SOB and malaise. At bedside patient is alert and oriented, sitting, with increased respiratory effort and diaphoresis. Vitals are 166/99, HR 111, R 20, 36.5C 97% on 4LPM via NC. He is now intermittently flipping into atrial fibrillation on telemetry with a heart rate into the 140-160s, then he will go back into sinus tachycardia with a HR in the 110s. Repeat EKG is unchanged from this am. Persistent LBBB. Labs and repeat CXR pending. Noted 1L pleural effusions on chest us this afternoon. Contacted cardiology who advised amio bolus and drip. Review of Systems Review of Systems: No chest pain, +nausea, +diaphoretic, +malaise, -fluttering or palpitations. +SOB with worsening of this and new symptoms recorded starting approximately 2 hours ago. Physical Exam Physical Exam: CONSTITUTIONAL: WNWD, vitals as above, generally ill- appearing, respiratory distress. EYES: normal conjunctivae, no scleral icterus ENT: external ear and nose normal, NECK: trachea midline RESPIRATORY: mild wheezing throughout all lung villatoro, no rales or rhonchi, increased respiratory effort. CARDIOVASCULAR: tachy rate and reg rhythm, S1 and 2 heard without murmurs, gallops or rubs, no JVD, no peripheral edema GASTROINTESTINAL: soft, nontender, ND, no guarding MUSCULOSKELETAL: generalized weakness, head is normocephalic and atraumatic SKIN: warm and diaphoretic NEUROLOGIC: CN 2-12 grossly intact, normal cognition, normal speech, no tremor. No gross focal deficits. PSYCHIATRIC: alert cooperative and oriented to person, place and time. Results & Data Results & Data ([facility]) Vital Signs (Past 12 Hours) Vital Signs Temp Pulse Pulse Resp BP BP Pulse Ox 03/11/21 19:41 36.5 C 111 H 18 166/99 H 97 03/11/21 15:41 36.6 C 95 H 18 146/84 H 98 03/11/21 11:48 36.6 C 86 18 134/82 99 03/11/21 10:07 81 Laboratory Results Short CBC 03/11/21 03/11/21 Range/Units 01:50 19:56 WBC 35.43 H* 13.84 H D (4.8-10.8) K/uL Hgb 11.0 L 11.3 L (14.0-18.0) g/dL Hct 33.8 L 33.8 L (42-52) % Plt Count 656 H 608 H (130-400) K/uL BMP 03/11/21 03/11/21 03/11/21 01:50 03:44 09:36 Sodium 138 137 Potassium 5.6 H 4.6 D Chloride 108 H 107 Carbon Dioxide 17 L 23 BUN 43 H 47 H Creatinine 2.20 H 2.02 H Glucose 282 H 150 H Calcium 8.3 L 8.6 03/11/21 19:56 Sodium 136 Potassium 5.1 Chloride 107 Carbon Dioxide 19 L BUN 53 H Creatinine 2.73 H D Glucose 174 H Calcium 8.7 Cardiac Enzymes 03/11/21 03/11/21 03/11/21 Range/Units 01:50 03:44 04:45 Total Creatine Kinase 150 (39-308) U/L CK-MB (CK-2) 6.0 H (0.5-3.6) ng/ml Troponin I 1.410 H* 2.200 H* (0-0.045) ng/ml 03/11/21 03/11/21 Range/Units 15:26 19:56 Total Creatine Kinase (39-308) U/L CK-MB (CK-2) (0.5-3.6) ng/ml Troponin I 9.520 H* 10.700 H* (0-0.045) ng/ml Liver Function 03/11/21 Range/Units 03:44 Total Bilirubin 0.8 (0.2-1) mg/dl Direct Bilirubin 0.3 H (0-0.2) mg/dl AST 64 H (15-37) U/L ALT 74 (12-78) U/L Alkaline Phosphatase 78 (45-117) U/L Albumin 3.3 L (3.4-5.0) gm/dl Urine 03/11/21 Range/Units Unknown Urine Color [place] Urine Appearance Turbid A (Clear) Urine pH 5.0 (4.5-7.5) Ur Specific [place] 1.019 (1.000-1.030) Urine Protein 2+ H (Negative) Urine Glucose (UA) Negative (Negative) Diagnostic Findings Renal Ultrasound 03/11/21 13:49 RENAL ULTRASOUND HISTORY: Acute kidney injury. Urinary retention. COMPARISON: None. FINDINGS: Right kidney: 10.3 cm. A 1.1 cm exophytic lower pole cyst. No hydronephrosis. Mild to moderate cortical thinning. Normal corticomedullary differentiation. Left kidney: 10.2 cm. No hydronephrosis. Mild to moderate cortical thinning. Normal corticomedullary differentiation.. There is a 1 cm lower pole cyst. Bladder: Decompressed by Anthony catheter and not well visualized. IMPRESSION: No hydronephrosis. ACT 112: Negative or not required by law. Electronically signed by: Geovanni East M.D. 03/11/2021 3:16 PM Chest Ultrasound 03/11/21 14:26 US effusion-chest/mediastinum HISTORY: 80 years-old Male bilateral pleural effusion bilateral pleural effusions COMPARISON: Chest radiograph of same day TECHNIQUE: Multiple real-time sonographic images of the chest were obtained assessing grayscale appearance FINDINGS: Bilateral pleural effusions. The right pleural effusion is measured at 1608 mL. The left pleural effusion is measured at 1409 mL. Neither side of the chest was marked. IMPRESSION: Bilateral pleural effusions, right greater than left. ACT 112: Negative or not required by law. The above report was generated using voice recognition software. It may contain grammatical, syntax or spelling errors. Electronically signed by: Shayne Moran M.D. 03/11/2021 3:15 PM Chest X-Ray 03/11/21 19:42 XR chest 1V portable INDICATION: MN ^increased SOB. TECHNIQUE: Single frontal radiograph of the chest was obtained. Comparison: Comparison is made to chest one view 03/11/2021 FINDINGS: No lines and tubes are seen. Cardiomegaly is noted. There is prominence and indistinctness of the vasculature with Ezequiel B lines seen. Airspace opacities are in the bilateral lower lobes. No pneumothoraces seen, small layering effusion cannot be excluded. IMPRESSION: 1. Moderate to severe pulmonary edema, similar in appearance to prior exam. 2. Possible small bilateral effusions. 3. Bilateral lower lung airspace opacities may represent atelectasis, pneumonia, aspiration, and/or layering effusion. 4. Cardiomegaly. ACT 112: Negative or not required by law. Electronically signed by: Luciano Monterroso M.D. 03/11/2021 8:38 PM
[2021-03-11] MEDS ORDERED: 0.2 MICRON FILTER SET 1 EA IV ONE (20:29)
[2021-03-11] MEDS ORDERED: AMIODARONE IV BOLUS & DRIP IV STA (20:29)
[2021-03-11] MEDS ORDERED: STAT IV Infusion **Titration per Protocol STA (20:29)
[2021-03-11 20:30] LABS: BUN Creatinine Ratio 19.5 (10-20); Calcium 8.7 mg/dl (8.5-10.1); Creatinine Clr Calc Pharmacy 23.7 ml/min; Est GFR (African American) 24.5 ml/min; Est GFR (Non-African American) 21.2 ml/min; Magnesium 2.6 mg/dl (1.8-2.4); Potassium 5.1 mmol/L (3.5-5.1)
[2021-03-11] MEDS ORDERED: AMIODARONE 150MG / 100ML D5W IV ONE (20:32)
[2021-03-11] MEDS ORDERED: AMIODARONE 360MG / 200ML D5W IV ONE (20:32)
--- NOTE | 2021-03-11 20:39 | XRay Report ---
XR chest 1V portable INDICATION: MN ^increased SOB. TECHNIQUE: Single frontal radiograph of the chest was obtained. Comparison: Comparison is made to chest one view 03/11/2021 FINDINGS: No lines and tubes are seen. Cardiomegaly is noted. There is prominence and indistinctness of the vas culature with Ezequiel B lines seen. Airspace opacities are in the bilateral lower lobes. No pneumothor aces seen, small layering effusion cannot be excluded. IMPRESSION: 1. Moderate to severe pulmonary edema, similar in appearance to prior exam. 2. Possible small bilateral effusions. 3. Bilateral lower lung airspace opacities may represent atelectasis, pneumonia, aspiration, and/or layering effusion. 4. Cardiomegaly. ACT 112: Negative or not required by law. Electronically signed by: Luciano Monterroso M.D. 03/11/2021 8:38 PM
[2021-03-11 20:41] LABS: Troponin I 10.7 ng/ml (0-0.045)
[2021-03-11] MEDS ORDERED: AMIODARONE / D5W 150 MG/100 ML BAG IV ONE (20:45)
[2021-03-11] MEDS ORDERED: AMIODARONE / D5W 360 MG/200 ML BAG IV ONE (21:00)
[2021-03-11] MEDS ORDERED: DEXTROSE 50% 50 ML SYRINGE IV PRN (21:31)
[2021-03-11] MEDS ORDERED: GLUCOSE 10 TABS/TUBE PO PRN (21:31)
[2021-03-11] MEDS ORDERED: GLUCAGON FOR INJ 1 MG VIAL SQ PRN (21:31)
[2021-03-11] MEDS ORDERED: CARBOHYDRATES FOR HYPOGLYCEMIA PO PRN (21:31)
[2021-03-11] MEDS ORDERED: GLUCOSE 40% GEL 15 GM TUBE PO PRN (21:31)
[2021-03-12 00:57] LABS: Partial Thromboplastin Ratio 2.2; Partial Thromboplastin Time 57.9 Seconds (21.0-31.0)
[2021-03-12] MEDS: AMIODARONE / D5W 360 MG/200 ML BAG IV SCH ×2 (02:57→15:03)
[2021-03-12] MEDS: LEVOTHYROXINE SODIUM 75 MCG TABLET PO SCH (06:04)
--- NOTE | 2021-03-12 06:10 | Electrocardiogram Report ---
Test Reason : Blood Pressure : / mmHG Vent. Rate : 094 BPM Atrial Rate : 094 BPM P-R Int : 156 ms QRS Dur : 152 ms QT Int : 414 ms P-R-T Axes : 055 031 168 degrees QTc Int : 517 ms Normal sinus rhythm Possible Left atrial enlargement Left bundle branch block Abnormal ECG No previous ECGs available Confirmed by William Pastrana ([id number]) on 03/12/2021 6:09:24 AM Also confirmed by William Pastrana ([id number]), online content editor IONA LORENZANA ([id number]) on 03/14/2021 7:01:44 AM Referred By: REFERRED SELF Confirmed By:William Pastrana
[2021-03-12 07:05] LABS: Hematocrit (blood only) 32.3 % (42-52); Hemoglobin 10.7 g/dL (14.0-18.0); Mean Corpuscular Hgb Conc 33.1 g/dL (32-36); Mean Corpuscular Volume 105.6 fL (80-100); Mean Platelet Volume 9.9 fL (7.4-10.4); Platelet Count 446 K/uL (130-400); RDW Coefficient of Variation 16.3 % (11.5-14.5); RDW Standard Deviation 61.6 fL (36.4-46.3); Red Blood Count 3.06 M/uL (4.7-6.1); White Blood Count 12.87 K/uL (4.8-10.8)
[2021-03-12 07:32] LABS: BUN Creatinine Ratio 22.7 (10-20); Calcium 8.4 mg/dl (8.5-10.1); Creatinine Clr Calc Pharmacy 22.4 ml/min; Est GFR (African American) 22.9 ml/min; Est GFR (Non-African American) 19.8 ml/min; Magnesium 2.5 mg/dl (1.8-2.4); Phosphorus 7.1 mg/dl (2.5-4.9); Potassium 4.7 mmol/L (3.5-5.1)
[2021-03-12] MEDS: INSULIN ASPART 100 UNITS/ML 3 ML PEN SC SCH ×2 (08:00→12:00)
[2021-03-12] MEDS ORDERED: FUROSEMIDE 60 MG in SYRINGE 0 ML IV ONE (08:15)
[2021-03-12] MEDS: METOPROLOL SUCC 25MG EXT REL TAB PO SCH (08:25)
[2021-03-12] MEDS: ASPIRIN 81 MG ECTAB PO SCH (08:26)
[2021-03-12] MEDS: amLODIPine BESYLATE 5 MG TAB PO SCH (08:26)
[2021-03-12] MEDS ORDERED: FUROSEMIDE 40 MG in SYRINGE 0 ML IV SCH (09:00)
--- NOTE | 2021-03-12 10:22 | Nephrology Consultation ---
Date of Consultation March 12, 2021 Assessment & Plan (1) Acute decompensated heart failure: new onset LV dysfunction 25% EF w/ LAD WMA on IV amiodarone, adding BB and resuming heparin gtt later today -per cardiology; may need cardiac cath -strict I/O, daily STANDING wt, <2 gm daily Na diet ordered -recommend 20 mg IV lasix tid and further / higher doses prn >> but would resume this at 1600 today (2) Acute kidney injury superimposed on chronic kidney disease: baseline creatinine 1.4-1.5; at baseline as recently as 03/01/21. chemistries acceptable; volume overload improving but w/ new onset systolic heart failure nonoliguric stage 1 ERICK on CKD3a; was 2.2 on presentation yesterday and uptrending fast to 2.9 today. urine sediment c/w ATN though interstitial nephritis on differential as well. favor ischemic ATN in setting of new onset L V function and a fib. -diuresis as above -minimize nephrotoxins best we can; all w/ understanding may need cardiac cath -recheck bmp ordered for 1999 History of Present Illness Reason for Consultation: ERICK, volume overload Requesting Physician: Dr Alatorre Attending Physician: Umm Lagunas MD History of Present Illness 80 y/o M whom I'm asked to see for ERICK and hypervolemia was admitted overnight with NSTEMI and new onset systolic HF, EF 20-25%. 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 He had a flu shot and epo on 03/01 >> developed F to 100.3 in wake of this (did not persist) and rapidly progressive exertional dyspnea for which he presented to ER yesterday. He was given lasix and put on BiPAP; he was started on lasix 20 mg IV q6h. He has an NSTEMI with climbing troponins. He went into new onset AF requiring amiodarone gtt last evening. He has BL pleural effusions on CXR and plan had been for possible thoracentesis this am. Multiple covid tests have been negative. He is vaccinated. However his HR has bumped to 140s this am; was 100s when I saw him immediately after BL thoracenteses, 1.55L on L and 1.85L on R. His breathing was much i mproved by the time I saw him. Allergies Allergy/AdvReac Type Severity Reaction Status Date / Time RYLEE Inhibitors AdvReac Intermediate Renal Verified 03/11/21 14:43 Complications Home Medications Medication Instructions Recorded Confirmed Type Black Elderberry(Ellison-Flower) 575 mg PO DAILY 03/11/21 03/11/21 History acetaminophen 500 mg tablet 500 mg PO Q6H PRN 03/11/21 03/11/21 History (Tylenol Extra Strength) amino acids-multivit with iron and 1 tab PO DAILY 03/11/21 03/11/21 History minerals tablet amlodipine 2.5 mg tablet 2.5 mg PO DAILY 03/11/21 03/11/21 History apple cider vinegar 500 mg tablet 500 mg PO DAILY 03/11/21 03/11/21 History azelastine 137 mcg (0.1 %) nasal 2 spray INTRANASAL BID 03/11/21 03/11/21 History spray aerosol cholecalciferol (vitamin D3) 25 25 mcg PO DAILY 03/11/21 03/11/21 History mcg (1,000 unit) tablet (Vitamin D3) cyanocobalamin (vitamin B-12) 1,000 mcg PO DAILY 03/11/21 03/11/21 History 1,000 mcg tablet (Vitamin B-12) epoetin abel 40,000 unit/mL 40,000 unit SUBCUT DIRECTED 03/11/21 03/11/21 History injection solution (Procrit) fluticasone propionate 50 1 spray INTRANASAL DAILY 03/11/21 03/11/21 History mcg/actuation nasal spray,suspension folic acid 1 mg tablet 1 mg PO DAILY 03/11/21 03/11/21 History levothyroxine 75 mcg tablet 75 mcg PO DAILYBB 03/11/21 03/11/21 History pyridoxine (vitamin B6) 100 mg 100 mg PO BID 03/11/21 03/11/21 History tablet (Vitamin B-6) triamcinolone acetonide 0.1 % 1 applic TOPICAL HS PRN 03/11/21 03/11/21 History topical ointment turmeric 450 mg-turmeric root 1 cap PO DAILY 03/11/21 03/11/21 History extract 50 mg capsule Patient History Medical History Anemia in CKD (chronic kidney disease) CKD (chronic kidney disease) stage 3, GFR 30-59 ml/min CLL (chronic lymphocytic leukemia) H/O: rheumatic fever HTN (hypertension) LBBB (left bundle branch block) MDS (myelodysplastic syndrome), low grade Nocturnal hypoxemia HAWA (obstructive sleep apnea) Prostate cancer Tobacco use disorder Surgical History H/O uvulectomy S/P tonsillectomy and adenoidectomy Family History Other Family history non-contributory Social History Smoking Status: Former smoker Second Hand Exposure: No; Do You Dip or Chew Tobacco: No; Tobacco Cessation Education Requested by Patient: No Hx Alcohol Use: No Hx Substance Use: No Preferred Language: Senegalese Communication Ability: Effective Product Blending Supervisor Required: No Beliefs That Will Affect Care: None Current Living Situation: Spouse How many Children do You have: 4 Other Information That Helps Us Care for You: No Feels Safe at Home: Yes Safety Concerns: Feels Safe At This Time Assistive Devices: Oxygen - Continuous Review of Systems Review of Systems: All systems reviewed & are unremarkable except as noted in HPI & below Genitourinary: no hematuria Physical Exam Constitutional: well developed, well nourished, cooperative and + overweight; no acute distress Eyes: EOM intact bilaterally ENMT: Ears: no external ear abnormality Nose: no external nose abnormality Mouth: + dry oral mucous membranes Neck: no nuchal rigidity Respiratory: normal respiratory effort and able to speak in complete sentences (but slightly dyspneic after prolonged speech) Auscultation: + diminished lung sounds Cardiovascular: Rate/Rhythm: + tachycardic (in 90-100s) Heart Sounds: normal S1, normal S2 and + murmur Extremities: no edema Gastrointestinal (Abdomen): Inspection/Auscultation: normal bowel sounds Percussion/Palpation: abdomen soft; abdomen nontender Musculoskeletal: Extremities: strength 5/5 throughout Skin: no rashes, warm and dry Neurologic: carrillo, fluent speech, no tremor Psychiatric: Orientation: oriented x 3 Genitourinary: del rosario w/ ample light yellow urnie Results & Data ([facility]) Vital Signs (Past 12 Hours) Vital Signs Temp Pulse Pulse Resp BP Pulse Ox 03/12/21 10:13 140 H 03/12/21 08:17 36.8 C 77 18 144/77 H 96 03/12/21 08:14 92 H 03/12/21 05:12 36.1 C L 79 16 144/84 H 98 03/11/21 23:29 36.5 C 106 H 18 150/89 H 99 03/11/21 23:00 107 H Laboratory Results 03/12/21 06:45 03/12/21 06:45 trop 12 this am UA > orange, st 1019, 2+ protein, 3+ blood trace ketones; +gran casts; 10-20 epi, > 30 RB, 1+ LE, 5-10 WBC Diagnostic Findings TTE > LVEF 25%, LAD WMA renal u/s Right kidney: 10.3 cm. A 1.1 cm exophytic lower pole cyst. No hydronephrosis. Mild to moderate cortical thinning. Normal corticomedullary differentiation. Left kidney: 10.2 cm. No hydronephrosis. Mild to moderate cortical thinning. Normal corticomedullary differentiation.. There is a 1 cm lower pole cyst. Bladder: Decompressed by Del Rosario catheter and not well visualized. IMPRESSION: No hydronephrosis.
--- NOTE | 2021-03-12 10:26 | Cardiology Progress Note ---
Date of Service March 12, 2021 Assessment & Plan (1) Acute decompensated heart failure: (2) Acute respiratory failure: (3) NSTEMI (non-ST elevated myocardial infarction): (4) Acute kidney injury superimposed on chronic kidney disease: (5) Aortic stenosis: Plan: Patient with new onset severe left ventricular systolic dysfunction, ejection fraction 20-25%, acute decompensated systolic congestive heart failure with associated bilateral pleural effusions complicated by symptomatic paroxysmal atrial fibrillation with a rapid ventricular response and acute on chronic renal dysfunction, occurring in the setting of moderate aortic stenosis, chronic left bundle branch block. Continue IV amiodarone. Add IV metoprolol. Increase oral beta-kelle therapy for rate control. Heparin is currently on hold in anticipation of thoracentesis. Continue cautious diuresis. Further recommendations pending the above, evaluation by Dr. Alatorre, and his ongoing hospital course. Admission and Anticipated Discharge Date Admission Date: March 11, 2021 Supervising Physician Co-Signing Physician Notes Supervising Physician Attestation: I have personally performed a history and physical examination on the patient. I agree with the physician news production assistant's findings and plan as documented with the following additions. Subjective: Pt with new atrial fibrillation with RVR last night onset 20:12, amiodarone infusion started and converted to SR at 23:49 with frequent PVCs. As of 11 am, has reverted back to AF with worsening respiratory status. Exam: Decreased BS at the bases. Tachypneic Data: Troponin this am 12.1 ng/ml EKG with chronic LBBB, unchanged Echo , LVEF ~25% , LAD territory wall motion abnormality Creatinine 2.89 . Assessment : New onset acute systolic heart failure NSTEMI chronic LBBB moderate ERICK AF , RVR Plan: * Furosemide 60 mg IV administered am of 03/12 * continue IV amiodarone * Oral and IV metoprolol * pulm consultation for considteration of thoracentesis, heparin gtt on hold. * Nephrology consultation. * Maged Alatorre, Subjective Patient seen and examined. Chart, medications, and telemetry reviewed. No improvement in dyspnea. Ongoing cough productive of phlegm. Abdominal discomfort (no BM the last couple of days. No chest pain. No overt palpitations. Telemetry with PAF status post conversion at 2349 then with sinus with PAC's, now as of 10:20 AM, recurrent atrial fibrillation with a rapid ventricular response. Review of Systems Review of Systems: Complete Review of Systems is as stated above, negative, or noncontributory Physical Exam Physical Exam: General: A&Ox3. + Tachypneic. Mild distress HENT: Normocephalic. Atraumatic. Eyes: PER. Conjunctiva pink, sclera clear. Neck: No jVD. No carotid bruits. Heart: Irregular in the 80's. Systolic ejection murmur. Lungs: Diminished. Decreased. Absent breath sounds at the bases. Scattered rales. Abdomen: +BS. Soft. Nontender. No masses or organomegaly. Extremities: Minimal edema. No clubbing. No cyanosis. Limited neurological examination is without focal deficits. Pulses: radial=2/4, posterior tibial=2/4 on the right, 1/4 on the left Results & Data ([facility]) Vital Signs (Past 12 Hours) Vital Signs Temp Pulse Pulse Resp BP Pulse Ox 03/12/21 10:13 140 H 03/12/21 08:17 36.8 C 77 18 144/77 H 96 03/12/21 08:14 92 H 03/12/21 05:12 36.1 C L 79 16 144/84 H 98 03/11/21 23:29 36.5 C 106 H 18 150/89 H 99 03/11/21 23:00 107 H Laboratory Results Laboratory Results - last 24 hr 03/11/21 03/11/21 03/11/21 10:59 15:26 17:35 WBC RBC Hgb Hct MCV MCH MCHC RDW Std Deviation RDW Coeff of Geovanni Plt Count MPV Immature Gran % (Auto) Neut % (Auto) Lymph % (Auto) Hopkins % (Auto) Eos % (Auto) Baso % (Auto) Neut # (Auto) Lymph # (Auto) Hopkins # (Auto) Eos # (Auto) Baso # (Auto) Immature Gran # (Auto) APTT 33.2 H 36.1 H PTT Ratio 1.3 1.4 Sodium Potassium Chloride Carbon Dioxide Anion Gap BUN Creatinine Est Cr Clr Drug Dosing Est GFR ( Amer) Est GFR (Non-Af Amer) BUN/Creatinine Ratio Glucose POC Glucose Calcium Phosphorus Magnesium Troponin I 9.520 H* Procalcitonin Urine Color Urine Appearance Urine pH Ur Specific Jaffrey Urine Protein Urine Glucose (UA) Urine Ketones Urine Blood Urine Nitrite Urine Bilirubin Urine Urobilinogen Ur Leukocyte Esterase Urine WBC (Auto) Urine RBC (Auto) U Hyaline Cast (Auto) U Epithel Cells (Auto) Urine Bacteria (Auto) Granular Casts Urine Yeast Nasal Screen MRSA (PCR) 03/11/21 03/11/21 03/11/21 19:39 19:56 19:56 WBC 13.84 H D RBC 3.23 L Hgb 11.3 L Hct 33.8 L MCV 104.6 H MCH 35.0 H MCHC 33.4 RDW Std Deviation 60.9 H RDW Coeff of Geovanni 16.1 H Plt Count 608 H MPV 10.0 Immature Gran % (Auto) 0.4 Neut % (Auto) 71.0 Lymph % (Auto) 24.4 Hopkins % (Auto) 4.0 Eos % (Auto) 0.1 Baso % (Auto) 0.1 Neut # (Auto) 9.83 H Lymph # (Auto) 3.38 Hopkins # (Auto) 0.55 Eos # (Auto) 0.01 Baso # (Auto) 0.01 Immature Gran # (Auto) 0.06 H APTT PTT Ratio Sodium Potassium Chloride Carbon Dioxide Anion Gap BUN Creatinine Est Cr Clr Drug Dosing Est GFR ( Amer) Est GFR (Non-Af Amer) BUN/Creatinine Ratio Glucose POC Glucose 193 H Calcium Phosphorus 7.2 H Magnesium Troponin I Procalcitonin Urine Color Urine Appearance Urine pH Ur Specific Jaffrey Urine Protein Urine Glucose (UA) Urine Ketones Urine Blood Urine Nitrite Urine Bilirubin Urine Urobilinogen Ur Leukocyte Esterase Urine WBC (Auto) Urine RBC (Auto) U Hyaline Cast (Auto) U Epithel Cells (Auto) Urine Bacteria (Auto) Granular Casts Urine Yeast Nasal Screen MRSA (PCR) 03/11/21 03/11/21 03/11/21 19:56 19:56 Unknown WBC RBC Hgb Hct MCV MCH MCHC RDW Std Deviation RDW Coeff of Geovanni Plt Count MPV Immature Gran % (Auto) Neut % (Auto) Lymph % (Auto) Hopkins % (Auto) Eos % (Auto) Baso % (Auto) Neut # (Auto) Lymph # (Auto) Hopkins # (Auto) Eos # (Auto) Baso # (Auto) Immature Gran # (Auto) APTT PTT Ratio Sodium 136 Potassium 5.1 Chloride 107 Carbon Dioxide 19 L Anion Gap 10.0 BUN 53 H Creatinine 2.73 H D Est Cr Clr Drug Dosing 23.7 Est GFR ( Amer) 24.5 Est GFR (Non-Af Amer) 21.2 BUN/Creatinine Ratio 19.5 Glucose 174 H POC Glucose Calcium 8.7 Phosphorus Magnesium 2.6 H Troponin I 10.700 H* Procalcitonin 1.45 H Urine Color Stephens Urine Appearance Turbid A Urine pH 5.0 Ur Specific Jaffrey 1.019 Urine Protein 2+ H Urine Glucose (UA) Negative Urine Ketones Trace H Urine Blood 3+ H Urine Nitrite Negative Urine Bilirubin Negative Urine Urobilinogen Negative Ur Leukocyte Esterase 1+ H Urine WBC (Auto) 5-10 H Urine RBC (Auto) >30 H U Hyaline Cast (Auto) 5-10 H U Epithel Cells (Auto) 10-20 H Urine Bacteria (Auto) Negative Granular Casts 1-5 H Urine Yeast Not Reportable Nasal Screen MRSA (PCR) 03/11/21 03/12/21 03/12/21 Unknown 00:30 06:45 WBC 12.87 H RBC 3.06 L Hgb 10.7 L Hct 32.3 L MCV 105.6 H MCH 35.0 H MCHC 33.1 RDW Std Deviation 61.6 H RDW Coeff of Geovanni 16.3 H Plt Count 446 H MPV 9.9 Immature Gran % (Auto) Neut % (Auto) Lymph % (Auto) Hopkins % (Auto) Eos % (Auto) Baso % (Auto) Neut # (Auto) Lymph # (Auto) Hopkins # (Auto) Eos # (Auto) Baso # (Auto) Immature Gran # (Auto) APTT 57.9 H* PTT Ratio 2.2 Sodium Potassium Chloride Carbon Dioxide Anion Gap BUN Creatinine Est Cr Clr Drug Dosing Est GFR ( Amer) Est GFR (Non-Af Amer) BUN/Creatinine Ratio Glucose POC Glucose Calcium Phosphorus Magnesium Troponin I Procalcitonin Urine Color Urine Appearance Urine pH Ur Specific Jaffrey Urine Protein Urine Glucose (UA) Urine Ketones Urine Blood Urine Nitrite Urine Bilirubin Urine Urobilinogen Ur Leukocyte Esterase Urine WBC (Auto) Urine RBC (Auto) U Hyaline Cast (Auto) U Epithel Cells (Auto) Urine Bacteria (Auto) Granular Casts Urine Yeast Nasal Screen MRSA (PCR) Negative 03/12/21 03/12/21 03/12/21 06:45 06:45 07:45 WBC RBC Hgb Hct MCV MCH MCHC RDW Std Deviation RDW Coeff of Geovanni Plt Count MPV Immature Gran % (Auto) Neut % (Auto) Lymph % (Auto) Hopkins % (Auto) Eos % (Auto) Baso % (Auto) Neut # (Auto) Lymph # (Auto) Hopkins # (Auto) Eos # (Auto) Baso # (Auto) Immature Gran # (Auto) APTT PTT Ratio Sodium 138 Potassium 4.7 Chloride 107 Carbon Dioxide 22 Anion Gap 9.0 BUN 66 H Creatinine 2.89 H Est Cr Clr Drug Dosing 22.4 Est GFR ( Amer) 22.9 Est GFR (Non-Af Amer) 19.8 BUN/Creatinine Ratio 22.7 H Glucose 144 H POC Glucose 133 H Calcium 8.4 L Phosphorus 7.1 H Magnesium 2.5 H Troponin I 12.100 H* Procalcitonin Urine Color Urine Appearance Urine pH Ur Specific Jaffrey Urine Protein Urine Glucose (UA) Urine Ketones Urine Blood Urine Nitrite Urine Bilirubin Urine Urobilinogen Ur Leukocyte Esterase Urine WBC (Auto) Urine RBC (Auto) U Hyaline Cast (Auto) U Epithel Cells (Auto) Urine Bacteria (Auto) Granular Casts Urine Yeast Nasal Screen MRSA (PCR)
[2021-03-12] MEDS ORDERED: METOPROLOL TARTRATE 1 MG/ML VIAL IV STA (10:43)
[2021-03-12] MEDS ORDERED: METOPROLOL TARTRATE 25 MG TAB PO ONE (10:44)
--- NOTE | 2021-03-12 11:00 | Hospitalist Progress Note ---
Date of Service March 12, 2021 Assessment & Plan (1) Acute respiratory failure: Plan: This is a 80yo M with a PMH CLL, low-grade myelodysplastic syndrome, HTN, moderate aortic stenosis, HTN, LBBB, CKD III and other medical problems listed below who presents with fevers, chills and shortness of breath x 1 week. In the setting of decompensated heart failure, bilateral pleural effusions, new onset A fib with RVR, possible infection Initially requiring bipap, now transitioned to NC - saturating at 99% on 4L NC Continue supplemental O2 (2) Acute decompensated heart failure: Plan: TTE from 03/11/21 with new onset severe left ventricular systolic dysfunction, ejection fraction 20-25% CXR with cardiomegaly with pulmonary edema and layering pleural effusions Given 40mg IV Lasix in ED, del rosario in place for strict I&Os Cardiology increased lasix to 60mg IV this morning (3) Bilateral pleural effusion: Plan: Bilateral pleural effusions R>L on imaging Pulmonology consulted IV heparin held this morning for planned thoracentesis by Dr. Shepherd (4) NSTEMI (non-ST elevated myocardial infarction): Plan: No chest pain, EKG with NSR and known LBBB In setting of decompensated heart failure, ERICK on CKD, now A fib with RVR Initial troponin 1.4 -> 2.2 ->9.5 ->10.7 -> 12.1 Started on IV heparin drip Cardiology added aspirin, low dose beta kelle Discussed possible cardiac catheterization in future when patient more stable (5) Atrial fibrillation with RVR: Plan: Developed A fib with RVR last evening, HR up to 160 Started on IV amiodarone with conversion to NSR overnight, back in A fib this morning around 1100 Continue IV amiodarone, PO and IV Lopressor (6) Acute kidney injury superimposed on chronic kidney disease: Plan: Initial Cr 2.02 (baseline ~ 1.5). In setting of decompensated heart failure, NSTEMI Renal function worsening despite diuresis - Cr 2.02 -> 2.73 -> 2.89 Renal ultrasound without hydronephrosis Nephrology consulted (7) Leukocytosis: Plan: WBC 25k yesterday down to 12.87k today (close to baseline) lactate initially 3.9 --> 1.8, procalcitonin initially wnl --> 1.45 CXR also showing right perihilar and right lung base predominant airspace opacities. Superimposed pneumonia would be difficult to exclude UA 1+ leuk esterase, no urine bacteria Started on empiric Zosyn, transitioned to Rocephin Follow cultures (8) HTN (hypertension): Plan: Continue amlodipine, lopressor, receiving IV lasix and Lopressor (9) Aortic stenosis: Plan: Known moderate aortic stenosis Monitor volume status closely, receiving IV lasix (10) CLL (chronic lymphocytic leukemia): Plan: Previously received oncology care in [place], received treatment once for this (immunotherapy) in 2012 and remains in remission Now following with Dr. Armenta (11) Anemia in CKD (chronic kidney disease): Plan: Hgb 11 (baseline). Receives injections of Procrit as outpatient Continue to monitor (12) HAWA (obstructive sleep apnea): Plan: CPAP HS DVT Ppx: IV heparin Code status: FULL PCP: Niraj Dispo: Admitted to PCU Patient seen in collaboration with Dr. Lagunas. Please see addendum. Admission and Anticipated Discharge Date Admission Date: March 11, 2021 Supervising Physician Co-Signing Physician Notes Patient seen and examined. Overnight patient went into Afib and was loaded with Amiodarone and reverted to sinus rhythm Patient currently on amiodarone drip Was started on metoprolol succinate 12.5mg this AM Hep gtt held for thoracentesis by pulm this AM Patient still reporting shortness of breath, weakness Patient currently on 4 L/min of nasal oxygen, some respiratory distress with tachypnea and accessory muscle use, reduced breath sounds lung bases Patient went back into A. fib with RVR. Got IV Lopressor 5 mg stat Discussed with sat instructor and toe stapler. To get thoracentesis today for pleural effusion. Heparin drip on hold for this. Patient has acute systolic heart failure, NSTEMI, ERICK on CKD 3. Cardiology on board Nephrology consulted Continue amiodarone drip. We will continue empiric antibiotics ceftriaxone for now based on increased procalcitonin and leukocytosis. Follow-up cultures Will need to resume anticoagulation after thoracentesis is done Subjective Seen and examined in 240-1. Patient dyspneic with accessory muscle use, saturating at 96% on 4L. Pale, diaphoretic. + Orthopnea. Denies any CP or palpitations. No fever or chills. No nausea, abdominal pain. Del Rosario catheter draining dark brownish red urine. Review of Systems Review of Systems: At least ten systems reviewed and negative except as noted in the HPI. Physical Exam Physical Exam: General Appearance: vitals as above, sitting up in bed, diaphoretic, dyspneic with mild distress Head: normocephalic, atraumatic Eyes: normal inspection, PERRL, conjunctivae normal, anicteric sclerae ENT: external ear and nose normal, oropharynx normal Neck: normal visual inspection, trachea midline, no thyromegaly Respiratory: increased respiratory effort, diminished breath sounds with expiratory rhonchi. + accessory muscle use Cardiovascular: irregular rate, rhythm, + systolic murmur, normal peripheral pulses, trace BLE edema. Vessels: + JVD Chest: normal inspection of chest Abdomen/GI: normal bowel sounds, soft, nontender, no hepatosplenomegaly Extremities/Musculoskeletal: no cyanosis or clubbing, extremities motor strength 5/5 Neurologic: PERRL, EOMI, accommodation nl, no face palsy, no dysarthria, CN's II-XI intact bilaterally and moves all extremities Psychiatric: A+Ox3, euthymic affect Skin: no rashes, pale, warm/dry Results & Data Results & Data ([facility]) Vital Signs (Past 12 Hours) Vital Signs Temp Pulse Pulse Resp BP Pulse Ox 03/12/21 10:41 152/92 H 03/12/21 10:13 140 H 03/12/21 08:17 36.8 C 77 18 144/77 H 96 03/12/21 08:14 92 H 03/12/21 05:12 36.1 C L 79 16 144/84 H 98 03/11/21 23:29 36.5 C 106 H 18 150/89 H 99 03/11/21 23:00 107 H Laboratory Results Short CBC 03/11/21 03/12/21 Range/Units 19:56 06:45 WBC 13.84 H D 12.87 H (4.8-10.8) K/uL Hgb 11.3 L 10.7 L (14.0-18.0) g/dL Hct 33.8 L 32.3 L (42-52) % Plt Count 608 H 446 H (130-400) K/uL BMP 03/11/21 03/12/21 19:56 06:45 Sodium 136 138 Potassium 5.1 4.7 Chloride 107 107 Carbon Dioxide 19 L 22 BUN 53 H 66 H Creatinine 2.73 H D 2.89 H Glucose 174 H 144 H Calcium 8.7 8.4 L Cardiac Enzymes 03/11/21 03/11/21 03/12/21 Range/Units 15:26 19:56 06:45 Troponin I 9.520 H* 10.700 H* 12.100 H* (0-0.045) ng/ml Urine 03/11/21 Range/Units Unknown Urine Color [place] Urine Appearance Turbid A (Clear) Urine pH 5.0 (4.5-7.5) Ur Specific [place] 1.019 (1.000-1.030) Urine Protein 2+ H (Negative) Urine Glucose (UA) Negative (Negative) Diagnostic Findings Chest X-Ray 03/11/21 01:50 XR chest 1V portable HISTORY: 80 years-old Male SOB acute shortness of breath COMPARISON: None TECHNIQUE: Portable AP view of the chest FINDINGS: Cardiac silhouette is enlarged. Pulmonary vascular congestion with asymmetric right hilar prominence. Calcified plaque of the thoracic aorta. No pneumothorax. Layering pleural effusions with right greater than left bibasilar consolidation. Mixed interstitial and alveolar opacities. Degenerative changes of the shoulders and spine. IMPRESSION: 1. Cardiomegaly with pulmonary edema and layering pleural effusions. 2. Right perihilar and right lung base predominant airspace opacities. Superimposed pneumonia would be difficult to exclude. ACT 112: Negative or not required by law. The above report was generated using voice recognition software. It may contain grammatical, syntax or spelling errors. Electronically signed by: Shayne Moran M.D. 03/11/2021 6:57 AM Renal Ultrasound 03/11/21 13:49 RENAL ULTRASOUND HISTORY: Acute kidney injury. Urinary retention. COMPARISON: None. FINDINGS: Right kidney: 10.3 cm. A 1.1 cm exophytic lower pole cyst. No hydronephrosis. Mild to moderate cortical thinning. Normal corticomedullary differentiation. Left kidney: 10.2 cm. No hydronephrosis. Mild to moderate cortical thinning. Normal corticomedullary differentiation.. There is a 1 cm lower pole cyst. Bladder: Decompressed by Del Rosario catheter and not well visualized. IMPRESSION: No hydronephrosis. ACT 112: Negative or not required by law. Electronically signed by: Geovanni East M.D. 03/11/2021 3:16 PM Chest Ultrasound 03/11/21 14:26 US effusion-chest/mediastinum HISTORY: 80 years-old Male bilateral pleural effusion bilateral pleural effusions COMPARISON: Chest radiograph of same day TECHNIQUE: Multiple real-time sonographic images of the chest were obtained assessing grayscale appearance FINDINGS: Bilateral pleural effusions. The right pleural effusion is measured at 1608 mL. The left pleural effusion is measured at 1409 mL. Neither side of the chest was marked. IMPRESSION: Bilateral pleural effusions, right greater than left. ACT 112: Negative or not required by law. The above report was generated using voice recognition software. It may contain grammatical, syntax or spelling errors. Electronically signed by: Shayne Moran M.D. 03/11/2021 3:15 PM Chest X-Ray 03/11/21 19:42 XR chest 1V portable INDICATION: MN ^increased SOB. TECHNIQUE: Single frontal radiograph of the chest was obtained. Comparison: Comparison is made to chest one view 03/11/2021 FINDINGS: No lines and tubes are seen. Cardiomegaly is noted. There is prominence and indistinctness of the vasculature with Ezequiel B lines seen. Airspace opacities are in the bilateral lower lobes. No pneumothoraces seen, small layering effusion cannot be excluded. IMPRESSION: 1. Moderate to severe pulmonary edema, similar in appearance to prior exam. 2. Possible small bilateral effusions. 3. Bilateral lower lung airspace opacities may represent atelectasis, pneumonia, aspiration, and/or layering effusion. 4. Cardiomegaly. ACT 112: Negative or not required by law. Electronically signed by: Luciano Monterroso M.D. 03/11/2021 8:38 PM
--- NOTE | 2021-03-12 12:15 | Pulmonary Consultation ---
Date of Consultation March 12, 2021 Assessment & Plan (1) Bilateral pleural effusion: (2) Acute decompensated heart failure: (3) Acute respiratory failure with hypoxia: (4) Tobacco use disorder: (5) HAWA (obstructive sleep apnea): Chest x-ray 03/11/2021 personally reviewed: Portable film, good respiratory effort, bilateral costophrenic angles are increased pulmonary vascular markings, increased cardiac silhouette --Acute hypoxic respiratory failure Secondary to systolic CHF with pulmonary edema Continue with diuresis as tolerated COVID-19 PCR negative BiPAP nightly and as needed shortness of breath --Bilateral pleural effusion In the patient was in acute distress We will do thoracentesis --HAWA Continue with home CPAP setting --Smoker Importance of quitting explained to the patient Plan: For thoracentesis bilaterally today to prevent intubation BiPAP/CPAP nightly and as needed shortness of breath Please note the above document was generated using voice recognition software. It may contain grammatical, syntax or spelling errors.Any formal questions or concerns about the content, text or information contained within the body of this dictation should be directly addressed to the provider for clarification. History of Present Illness Attending Physician: Umm Lagunas MD History of Present Illness 80-year-old male past medical history of systolic CHF, EF 20-25%, CKD CLL and low-grade MDS presented to the hospital with worsening shortness of breath going on since 1 week he has been coughing and bringing up brownish phlegm. Patient was in respiratory distress and chest x-ray showed bilateral large pleural effusion Pulmonary consulted to help with thoracentesis Case was signed out by Dr. Alatorre. At the time of examination patient was in acute respiratory distress. He was breathing in the mid 30s Consent was obtained for thoracentesis At the time of examination patient denied any chest pain He did complain of an ability to lay on the back. Denies any headache, no nausea or vomiting. He has been urinating with the help of Lasix. He was only on nasal cannula. Social history: Patient said that he smokes cigars on a regular basis. No history of asthma. Allergies Allergy/AdvReac Type Severity Reaction Status Date / Time RYLEE Inhibitors AdvReac Intermediate Renal Verified 03/11/21 14:43 Complications Home Medications Medication Instructions Recorded Confirmed Type Black Elderberry(Ellison-Flower) 575 mg PO DAILY 03/11/21 03/11/21 History acetaminophen 500 mg tablet 500 mg PO Q6H PRN 03/11/21 03/11/21 History (Tylenol Extra Strength) amino acids-multivit with iron and 1 tab PO DAILY 03/11/21 03/11/21 History minerals tablet amlodipine 2.5 mg tablet 2.5 mg PO DAILY 03/11/21 03/11/21 History apple cider vinegar 500 mg tablet 500 mg PO DAILY 03/11/21 03/11/21 History azelastine 137 mcg (0.1 %) nasal 2 spray INTRANASAL BID 03/11/21 03/11/21 Hist ory spray aerosol cholecalciferol (vitamin D3) 25 25 mcg PO DAILY 03/11/21 03/11/21 History mcg (1,000 unit) tablet (Vitamin D3) cyanocobalamin (vitamin B-12) 1,000 mcg PO DAILY 03/11/21 03/11/21 History 1,000 mcg tablet (Vitamin B-12) epoetin abel 40,000 unit/mL 40,000 unit SUBCUT DIRECTED 03/11/21 03/11/21 History injection solution (Procrit) fluticasone propionate 50 1 spray INTRANASAL DAILY 03/11/21 03/11/21 History mcg/actuation nasal spray,suspension folic acid 1 mg tablet 1 mg PO DAILY 03/11/21 03/11/21 History levothyroxine 75 mcg tablet 75 mcg PO DAILYBB 03/11/21 03/11/21 History pyridoxine (vitamin B6) 100 mg 100 mg PO BID 03/11/21 03/11/21 History tablet (Vitamin B-6) triamcinolone acetonide 0.1 % 1 applic TOPICAL HS PRN 03/11/21 03/11/21 History topical ointment turmeric 450 mg-turmeric root 1 cap PO DAILY 03/11/21 03/11/21 History extract 50 mg capsule Patient History Medical History Anemia in CKD (chronic kidney disease) CKD (chronic kidney disease) stage 3, GFR 30-59 ml/min CLL (chronic lymphocytic leukemia) H/O: rheumatic fever HTN (hypertension) LBBB (left bundle branch block) MDS (myelodysplastic syndrome), low grade Nocturnal hypoxemia HAWA (obstructive sleep apnea) Prostate cancer Tobacco use disorder Surgical History H/O uvulectomy S/P tonsillectomy and adenoidectomy Family History Other Family history non-contributory Social History Smoking Status: Former smoker Second Hand Exposure: No; Do You Dip or Chew Tobacco: No; Tobacco Cessation Education Requested by Patient: No Hx Alcohol Use: No Hx Substance Use: No Preferred Language: Upper Sorbian Communication Ability: Effective [employer] Counselors Required: No Beliefs That Will Affect Care: None Current Living Situation: Spouse How many Children do You have: 4 Other Information That Helps Us Care for You: No Feels Safe at Home: Yes Safety Concerns: Feels Safe At This Time Assistive Devices: Oxygen - Continuous Review of Systems Review of Systems: All systems reviewed & are unremarkable except as noted in HPI & below Physical Exam Physical Exam: Constitutional: Acute respiratory stress HEENT: EOMI, PERRLA Respiratory system: Decreased air entry bilaterally, no wheeze, no rhonchi, positive crackles bilateral lower lobes CVS: S1-S2 positive, no murmurs or gallops, distant heart sounds Abdomen: Soft, nontender, nondistended, positive bowel sounds x4 Extremities: +2 pulses bilaterally radialis/ dorsalis pedis, no cyanosis, +1 pitting edema bilateral lower extremity Neuro: Awake alert oriented x3 Psych: Normal mood and affect G/U: Positive Anthony Skin: no rashes, warm and dry Lymphatic: no cervical or axillary lymphadenopathy Results & Data Results & Data ([facility]) Vital Signs (Past 12 Hours) Vital Signs Temp Pulse Pulse Resp BP BP Pulse Ox 03/12/21 11:00 125 H 152/92 H 03/12/21 10:41 152/92 H 03/12/21 10:13 140 H 03/12/21 08:17 36.8 C 77 18 144/77 H 96 03/12/21 08:14 92 H 03/12/21 05:12 36.1 C L 79 16 144/84 H 98 03/12/21 06:45 03/12/21 06:45 PG Care Time/CCT Total # of Minutes Spent Total Time Spent with Patient: Total time spent is greater than 50% in coordination of care (as documented) at patient's floor/unit and/or counseling patient: Coding Level of Care Code 33503 Initial Inpt Care Lvl 3 Diagnoses Bilateral pleural effusion J90 Acute decompensated heart failure I50.9 Acute respiratory failure with hypoxia J96.01 Tobacco use disorder F17.200 HAWA (obstructive sleep apnea) G47.33
--- NOTE | 2021-03-12 12:16 | Procedure Note ---
Procedure Note Date of Service March 12, 2021 Note Procedure: Diagnostic therapeutic ultrasound-guided catheter thoracentesis Insurance Representative: Dr. Helga Shepherd Indication: Right pleural effusion Consent: Signed by patient and verified with timeout prior to procedure Anesthesia: 1% lidocaine without epinephrine local. Procedure: Consent was verified and timeout performed. Appropriate imaging studies were reviewed prior to the procedure. Patient was placed in a seated position and limited thoracic ultrasound was performed of the right chest. See separate imaging. Appropriate site above the diaphragm for thoracentesis was selected. The skin was prepped and draped in normal sterile fashion. Lidocaine was used for local analgesia. Fluid was aspirated via the finder needle. A small skin vinh was made with the scalpel and the catheter over the needle apparatus was advanced over the rib into the pleural space. Using the syringe one-way valve system, a total of 1850 mL's of serous fluid was removed. The catheter was removed and observed to be intact. A sterile dressing was applied. Post procedure chest x-ray was ordered. Fluid was sent for labs, culture and cytology. Complications: None Blood loss: None Coding CPT Codes Pulmonary/Thoracic - Pulmonary and Thoracic: 96557 Thoracentesis w imaging ([id number]) [facility] [place] Codes (Charges) Pulmonary/Thoracic Procedure 1: Pulmonary and Thoracic: 50204 Thoracentesis w imaging
--- NOTE | 2021-03-12 12:17 | Procedure Note ---
Procedure Note Date of Service March 12, 2021 Note Procedure: Diagnostic therapeutic ultrasound-guided catheter thoracentesis Farm Management Adviser: Dr. Helga Shepherd Indication: Left pleural effusion Consent: Signed by patient and verified with timeout prior to procedure Anesthesia: 1% lidocaine without epinephrine local. Procedure: Consent was verified and timeout performed. Appropriate imaging studies were reviewed prior to the procedure. Patient was placed in a seated position and limited thoracic ultrasound was performed of the left chest. See separate imaging. Appropriate site above the diaphragm for thoracentesis was selected. The skin was prepped and draped in normal sterile fashion. Lidocaine was used for local analgesia. Fluid was aspirated via the finder needle. A small skin vinh was made with the scalpel and the catheter over the needle apparatus was advanced over the rib into the pleural space. Using the syringe one-way valve system, a total of 1550 mL's of serous fluid was removed. The catheter was removed and observed to be intact. A sterile dressing was applied. Post procedure chest x-ray was ordered. Fluid was sent for labs, culture and cytology. Complications: None Blood loss: None Coding CPT Codes Pulmonary/Thoracic - Pulmonary and Thoracic: 70264 Thoracentesis w imaging ([id number]) [facility] [place] Procedure Codes (Charges) Pulmonary/Thoracic Procedure 2: Pulmonary and Thoracic: 99588 Thoracentesis w imaging
--- NOTE | 2021-03-12 12:44 | XRay Report ---
SINGLE VIEW CHEST CLINICAL HISTORY: Status post bilateral thoracentesis FINDINGS: An AP, portable, upright chest radiograph is compared to study dated 03/11/2021. The heart i s enlarged noting atherosclerotic calcification of the thoracic aorta. Pulmonary vascular congestion has improved from previous. Trace pleural effusions persist. These have decreased in size from previo us. Atelectasis is noted at the lung bases. No pneumothorax is seen. The skeletal structures are oste openic. The bony thorax is grossly intact. IMPRESSION: 1. No pneumothorax is seen post procedure. 2. Cardiomegaly. Pulmonary vascular congestion has improved from previous. 3. There are trace residual pleural effusions. These have decreased in size from previous. ACT 112: Negative or not required by law. Electronically signed by: Jameson Melendez M.D. 03/12/2021 12:42 PM
[2021-03-12 13:21] LABS: Glucose Pleural Fluid 143 mg/dl; Glucose Pleural Fluid 151 mg/dl
[2021-03-12 13:26] LABS: Amylase Pleural Fluid 12 U/L; Amylase Pleural Fluid 13 U/L; LDH Pleural Fluid 91 U/L; LDH Pleural Fluid 93 U/L; Total Protein Pleural Fluid 1.9 g/dl; Total Protein Pleural Fluid 2.2 g/dl
[2021-03-12 13:41] LABS: Albumin Level 3.4 gm/dl (3.4-5.0); Bilirubin,Total 0.8 mg/dl (0.2-1); Total Protein 6.9 gm/dl (6.4-8.2)
[2021-03-12 13:49] LABS: Appearance Pleural Fluid HAZY; Basophils, Fluid 0 %; Color Pleural Fluid YELLOW; Eosinophils, Fluid 0 %; Lymphocytes, Fluid 80 %; Mono,Macrophage,Mesothelial 17 %; Neutrophils, Fluid 3 %; RBC Pleural Fluid (A) < 3000 /uL; Source Pleural Fluid LEFT LUNG; WBC Pleural Fluid (A) 646 /uL
[2021-03-12 13:50] LABS: Appearance Pleural Fluid CLEAR; Basophils, Fluid 0 %; Color Pleural Fluid YELLOW; Eosinophils, Fluid 0 %; Lymphocytes, Fluid 73 %; Mono,Macrophage,Mesothelial 24 %; Neutrophils, Fluid 3 %; RBC Pleural Fluid (A) < 3000 /uL; Source Pleural Fluid RIGHT LUNG; WBC Pleural Fluid (A) 419 /uL
[2021-03-12] MEDS: HEPARIN SODIUM/DEXTROSE 25,000 UNITS/500 ML BAG IV SCH (15:33)
--- NOTE | 2021-03-12 15:33 | Cardiology Progress Note ---
Date of Service March 12, 2021 Assessment & Plan (1) Atrial fibrillation with RVR: Plan: Patient has been in and out of atrial fibrillation since 8 pm 03/11. Now back in SR. Concern is pt may have had an embolic event to the left lower extremity. Heparin on hold at 4 am today to allow for thoracentesis. Resume heparin. Consult vascular surgery, case discussed by phone with Dr Crawford. (2) Bilateral pleural effusion: Plan: Clinically, respiratory status much improved. CXR without PTX. Plan: -Pt's daughter, Laney, called in to nursing station while I was sitting there, and I discussed updates with her. Admission and Anticipated Discharge Date Admission Date: March 11, 2021 Subjective Patient seen in reassessment. Shortness of breath improved s/p bilateral thoracentesis. I had actually come to the patient's bedside to assess for resuming heparin infusion s/p thoracentesis. Nursing and patient however reported new onset paresthesias of left foot , onset about 1 pm, 3:20 pm at time of my assessment. Physical Exam Cardiovascular: Rate/Rhythm: regular rate left foot warm to touch. No detectable dorsalis pedal or posterior tibial pulse on bedside Doppler , 2+ popliteal pulse -performed personally by Dr Alatorre No pain Decreased sensation. Results & Data ([facility]) Vital Signs (Past 12 Hours) Vital Signs Temp Pulse Pulse Resp BP BP Pulse Ox 03/12/21 13:03 112/62 03/12/21 12:00 36.9 C 77 18 144/73 H 92 03/12/21 11:00 125 H 152/92 H 03/12/21 10:41 152/92 H 03/12/21 10:13 140 H 03/12/21 08:17 36.8 C 77 18 144/77 H 96 03/12/21 08:14 92 H 03/12/21 05:12 36.1 C L 79 16 144/84 H 98
[2021-03-12] MEDS: FUROSEMIDE 20 MG in SYRINGE 0 ML IV SCH ×2 (15:51→21:38)
[2021-03-12] MEDS: cefTRIAXone SODIUM 2,000 MG in DEXTROSE 5% 50 ML IV SCH (16:00)
--- NOTE | 2021-03-12 16:14 | Anesthesiology Consultation ---
Date of Service March 12, 2021 Assessment & Plan Chart Review Chart Review: Acceptable Risk for Surgery and Patient NOT seen in Pre Admission Testing Consults Requested none ASA [id number] Proposed Anesthesia Anesthesia Type: MAC History Surgery Operation Date: 03/12/21 11:15 Proposed Procedures p Thrombectomy Left Lower Leg - Javier Crawford MD Height/Weight Height: 5 ft 7 in Weight: 92 kg Allergies Allergy/AdvReac Type Severity Reaction Status Date / Time RYLEE Inhibitors AdvReac Intermediate Renal Verified 03/11/21 14:43 Complications Medications Home Medications Medication Instructions Recorded Confirmed Last Taken Black Elderberry(Ellison-Flower) 575 mg PO DAILY 03/11/21 03/11/21 03/10/21 acetaminophen 500 mg tablet 500 mg PO Q6H PRN 03/11/21 03/11/21 03/10/21 (Tylenol Extra Strength) 500 mg amino acids-multivit with iron and 1 tab PO DAILY 03/11/21 03/11/21 03/10/21 minerals tablet amlodipine 2.5 mg tablet 2.5 mg PO DAILY 03/11/21 03/11/21 03/10/21 apple cider vinegar 500 mg tablet 500 mg PO DAILY 03/11/21 03/11/21 03/10/21 azelastine 137 mcg (0.1 %) nasal 2 spray INTRANASAL BID 03/11/21 03/11/21 03/10/21 spray aerosol cholecalciferol (vitamin D3) 25 25 mcg PO DAILY 03/11/21 03/11/21 03/10/21 mcg (1,000 unit) tablet (Vitamin D3) cyanocobalamin (vitamin B-12) 1,000 mcg PO DAILY 03/11/21 03/11/21 03/10/21 1,000 mcg tablet (Vitamin B-12) epoetin abel 40,000 unit/mL 40,000 unit SUBCUT DIRECTED 03/11/21 03/11/21 03/01/21 injection solution (Procrit) fluticasone propionate 50 1 spray INTRANASAL DAILY 03/11/21 03/11/21 03/10/21 mcg/actuation nasal spray,suspension folic acid 1 mg tablet 1 mg PO DAILY 03/11/21 03/11/21 03/10/21 levothyroxine 75 mcg tablet 75 mcg PO DAILYBB 03/11/21 03/11/21 03/10/21 pyridoxine (vitamin B6) 100 mg 100 mg PO BID 03/11/21 03/11/21 03/10/21 tablet (Vitamin B-6) triamcinolone acetonide 0.1 % 1 applic TOPICAL HS PRN 03/11/21 03/11/21 Unknown topical ointment turmeric 450 mg-turmeric root 1 cap PO DAILY 03/11/21 03/11/21 03/10/21 extract 50 mg capsule Active Medications Generic Name Dose Route Start Last Admin Trade Name Freq PRN Reason Stop Dose Admin Amlodipine Besylate 2.5 mg 03/11/21 09:00 03/12/21 08:26 Amlodipine Besylate 5 Mg Tab PO 04/10/21 08:59 2.5 mg DAILY ABAD Administration Aspirin 81 mg 03/12/21 09:00 03/12/21 08:26 Aspirin 81 Mg Ectab PO 04/11/21 08:59 81 mg QAM ABAD Administration Heparin Sodium/Dextrose 25,000 units in 500 mls @ 22 mls/hr 03/11/21 04:00 03/12/21 15:33 Heparin Sodium/Dextrose IV 04/10/21 03:59 1,100 units/hr .[id number] ABAD 22 mls/hr Administration Protocol 1,100 UNITS/HR Ceftriaxone Sodium 2,000 mg/ 70 mls @ 140 mls/hr 03/11/21 16:00 03/12/21 16:00 Dextrose IV 03/13/21 15:59 140 mls/hr Q24H ABAD Administration Protocol Amiodarone HCl/Dextrose 360 mg in 200 mls @ 16.667 mls/hr 03/12/21 03:00 03/12/21 15:03 Nexterone / D5w IV 04/11/21 02:59 0.5 mg/min .Q12H ABAD 16.7 mls/hr Administration 0.5 MG/MIN Furosemide 20 mg/ Syringe 2 mls @ 4 mls/min 03/12/21 16:00 03/12/21 15:51 IV 04/11/21 15:59 4 mls/min Q8 ABAD Administration Insulin Aspart 0 units 03/12/21 07:30 03/12/21 12:00 Insulin Aspart 100 Units/Ml 3 Ml Pen SC 04/11/21 07:29 Not Given ACHS ABAD Levothyroxine Sodium 75 mcg 03/12/21 06:30 03/12/21 06:04 Levothyroxine Sodium 75 Mcg Tablet PO 04/11/21 06:29 75 mcg DAILYBB ABAD Administration Metoprolol Succinate 12.5 mg 03/11/21 11:45 03/12/21 08:25 Metoprolol Succ 25mg Ext Rel Tab PO 04/10/21 11:44 12.5 mg QAM ABAD Administration Past Medical History Medical History Anemia in CKD (chronic kidney disease) CKD (chronic kidney disease) stage 3, GFR 30-59 ml/min CLL (chronic lymphocytic leukemia) H/O: rheumatic fever HTN (hypertension) LBBB (left bundle branch block) MDS (myelodysplastic syndrome), low grade Nocturnal hypoxemia HAWA (obstructive sleep apnea) Prostate cancer Tobacco use disorder Exercise / Class Metabolic Activity III < 4 Walking/Shop/Light housework Past Family History Family History Other Family history non-contributory Past Surgical History Surgical History H/O uvulectomy S/P tonsillectomy and adenoidectomy Past Anesthesia History No Hx of Anesthesia Complications and No Family Hx of Anesthesia Complications History of PONV No Hx of PONV and No Hx of Motion Sickness Social History Smoking Status: Former smoker Do You Dip or Chew Tobacco: No Hx Alcohol Use: No Hx Substance Use: No substance use type: does not use Physical Exam Vital Signs Last Vital Signs Temp 36.9 C 03/12/21 12:00 Pulse 77 03/12/21 12:00 Resp 18 03/12/21 12:00 BP 112/62 03/12/21 13:03 Pulse Ox 92 03/12/21 12:00 Testing Laboratory Results 03/12/21 06:45 03/12/21 06:45 PT 11.7 Seconds (9.0-12.0) 03/11/21 01:50 INR 1.2 (0.9-1.1) H 03/11/21 01:50 APTT 57.9 Seconds (21.0-31.0) H* 03/12/21 00:30 Hemoglobin A1c 5.3 % (4.5-5.6) 03/11/21 04:45 Urine Color [place] 03/11/21 Unknown Urine Appearance Turbid (Clear) A 03/11/21 Unknown Urine pH 5.0 (4.5-7.5) 03/11/21 Unknown Ur Specific [place] 1.019 (1.000-1.030) 03/11/21 Unknown Urine Protein 2+ (Negative) H 03/11/21 Unknown Urine Glucose (UA) Negative (Negative) 03/11/21 Unknown Urine Ketones Trace (Negative) H 03/11/21 Unknown Urine Nitrite Negative (Negative) 03/11/21 Unknown Ur Leukocyte Esterase 1+ (Negative) H 03/11/21 Unknown Urine WBC (Auto) 5-10 /hpf (0-5) H 03/11/21 Unknown Urine RBC (Auto) >30 /hpf (0-4) H 03/11/21 Unknown U Hyaline Cast (Auto) 5-10 /lpf (0-5) H 03/11/21 Unknown U Epithel Cells (Auto) 10-20 /lpf (0-5) H 03/11/21 Unknown Urine Bacteria (Auto) Negative (Negative) 03/11/21 Unknown 03/12/21 Unknown Gram Stain - Final Pleural Fluid 03/12/21 Unknown Gram Stain - Final Pleural Fluid 03/11/21 Unknown Urine Culture - Preliminary Urine,Indwelling Cath No growth - Less than 1,000 colonies/mL, Final report to follow. 03/11/21 09:36 Aerobic Blood Culture - Preliminary Blood No growth in Aerobic bottle after 24 hours. Anaerobic Blood Culture - Preliminary No growth in Anaerobic bottle after 24 hours. 03/11/21 03:48 Aerobic Blood Culture - Preliminary Blood No growth in Aerobic bottle after 24 hours. Anaerobic Blood Culture - Preliminary No growth in Anaerobic bottle after 24 hours. 03/12/21 03/12/21 11:52 07:45 POC Glucose 80 133 H Electrocardiogram Date: 03/12/21 Findings: + NSR @ (at 71) and + LBBB Chest X-Ray Date: 03/12/21 Findings: + cardiomegaly and + pleural effusion Echocardiogram Date: 03/11/21 EF: 20% LV Function: dysfunctional RWMA: + akinetic; no none Other Findings: + LVH and + diastolic dysfunction (grade 2) Valvular Disease: + (mod.) and + MR (mod.)
--- NOTE | 2021-03-12 16:22 | Consultation ---
Date of Consultation March 12, 2021 Assessment & Plan (1) Embolism, arterial, leg, left: This gentleman has multiple medical problems at this point with increased creatinine, recent [place], and new onset atrial fib. After his procedure today he developed sudden onset of numbness of his left foot and is consistent with embolization of the left lower extremity. In view of his medical problems recommended we attempt an embolectomy under MAC. If any further surgery is needed I do not think he is a good candidate for bypass to the left lower extremity due to his recent [place] and atrial fibrillation and renal insufficiency. I also believe endovascular repair and treatment is not indicated due to his significant increase in creatinine which is acute. Patient agreed to go ahead with the embolectomy in hopes of removing enough clot to increase the perfusion of his left foot. He is aware that if we cannot get enough flow to the foot that he may require an amputation in the future. I have discussed the risks options and benefits of the procedure with the patient. The patient understands the risks options and benefits and agrees to the procedure. Thank you very much for letting us participate in the care of this patient. History of Present Illness Reason for Consultation: Numbness right lower extremity Attending Physician: Umm Lagunas MD History of Present Illness This is a 80-year-old gentleman who has a chronic history of CLL. He came into the hospital with non-STEMI. He is developed renal insufficiency with increased creatinine is in the high twos. He also had shortness of breath with pleural effusions in both lung villatoro. These were tapped earlier today. The drained off 1800 cc on the right and 1500 cc from the left chest. His shortness of breath improved. Once they were finished he was complaining of numbness in his left foot which was acute in onset. He denies any pain at this point. He did have positive Doppler signals in the left foot prior to today's procedure. He has no history of claudication or ulcerations of the lower extremities. Allergies Allergy/AdvReac Type Severity Reaction Status Date / Time RYLEE Inhibitors AdvReac Intermediate Renal Verified 03/11/21 14:43 Complications Home Medications Medication Instructions Recorded Confirmed Type Black Elderberry(Ellison-Flower) 575 mg PO DAILY 03/11/21 03/11/21 History acetaminophen 500 mg tablet 500 mg PO Q6H PRN 03/11/21 03/11/21 History (Tylenol Extra Strength) amino acids-multivit with iron and 1 tab PO DAILY 03/11/21 03/11/21 History minerals tablet amlodipine 2.5 mg tablet 2.5 mg PO DAILY 03/11/21 03/11/21 History apple cider vinegar 500 mg tablet 500 mg PO DAILY 03/11/21 03/11/21 History azelastine 137 mcg (0.1 %) nasal 2 spray INTRANASAL BID 03/11/21 03/11/21 History spray aerosol cholecalciferol (vitamin D3) 25 25 mcg PO DAILY 03/11/21 03/11/21 History mcg (1,000 unit) tablet (Vitamin D3) cyanocobalamin (vitamin B-12) 1,000 mcg PO DAILY 03/11/21 03/11/21 History 1,000 mcg tablet (Vitamin B-12) epoetin abel 40,000 unit/mL 40,000 unit SUBCUT DIRECTED 03/11/21 03/11/21 History injection solution (Procrit) fluticasone propionate 50 1 spray INTRANASAL DAILY 03/11/21 03/11/21 History mcg/actuation nasal spray,suspension folic acid 1 mg tablet 1 mg PO DAILY 03/11/21 03/11/21 History levothyroxine 75 mcg tablet 75 mcg PO DAILYBB 03/11/21 03/11/21 History pyridoxine (vitamin B6) 100 mg 100 mg PO BID 03/11/21 03/11/21 History tablet (Vitamin B-6) triamcinolone acetonide 0.1 % 1 applic TOPICAL HS PRN 03/11/21 03/11/21 History topical ointment turmeric 450 mg-turmeric root 1 cap PO DAILY 03/11/21 03/11/21 History extract 50 mg capsule Patient History Medical History Anemia in CKD (chronic kidney disease) CKD (chronic kidney disease) stage 3, GFR 30-59 ml/min CLL (chronic lymphocytic leukemia) H/O: rheumatic fever HTN (hypertension) LBBB (left bundle branch block) MDS (myelodysplastic syndrome), low grade Nocturnal hypoxemia HAWA (obstructive sleep apnea) Prostate cancer Tobacco use disorder Surgical History H/O uvulectomy S/P tonsillectomy and adenoidectomy Family History Other Family history non-contributory Social History Smoking Status: Former smoker Second Hand Exposure: No; Do You Dip or Chew Tobacco: No; Tobacco Cessation Education Requested by Patient: No Hx Alcohol Use: No Hx Substance Use: No Preferred Language: Latvian Communication Ability: Effective Senior Principal 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: No Beliefs That Will Affect Care: None Current Living Situation: Spouse How many Children do You have: 4 Other Information That Helps Us Care for You: No Feels Safe at Home: Yes Safety Concerns: Feels Safe At This Time Assistive Devices: Oxygen - Continuous Review of Systems Review of Systems: All systems reviewed & are unremarkable except as noted in HPI & below Physical Exam Constitutional: well developed and well nourished; no acute distress Respiratory: no respiratory distress Auscultation: + diminished lung sounds (Both bases) Cardiovascular: Rate/Rhythm: + irregularly irregular Vessels: femoral pulses present, posterior tibial pulses present (No Doppler left foot.) and dorsalis pedis pulses present (Doppler on the right and none on the left) Extremities: + abnormal capillary refill (Capillary refill is markedly decreased in the left foot.) Gastrointestinal (Abdomen): Inspection/Auscultation: abdomen normal to inspection Percussion/Palpation: abdomen soft; abdomen nontender Musculoskeletal: Extremities: strength 5/5 throughout Neurologic: normal touch/pain/proprioception and moves all extremities; + abnormal sensation to monofilament (sl decreased left foot to 4 fingerbreadths above the ankle) Psychiatric: Orientation: alert and oriented x 3 Results & Data ([facility]) Vital Signs (Past 12 Hours) Vital Signs Temp Pulse Pulse Resp BP BP Pulse Ox 03/12/21 13:03 112/62 03/12/21 12:00 36.9 C 77 18 144/73 H 92 03/12/21 11:00 125 H 152/92 H 03/12/21 10:41 152/92 H 03/12/21 10:13 140 H 03/12/21 08:17 36.8 C 77 18 144/77 H 96 03/12/21 08:14 92 H 03/12/21 05:12 36.1 C L 79 16 144/84 H 98
[2021-03-12] MEDS ORDERED: HEPARIN SOD (PORCINE) 1000 UNIT/ML ONE (16:28)
[2021-03-12] MEDS ORDERED: THROMBIN FOR SOLN 20000 UNIT KIT ONE (16:30)
[2021-03-12] MEDS ORDERED: GELATIN SPONGE SZ 100 ONE (16:30)
[2021-03-12] MEDS ORDERED: MIDAZOLAM HCL 1 MG/ML 2ML VIAL ONE (16:57)
[2021-03-12] MEDS ORDERED: BUPIVACAINE 0.5 % 5 MG/1 ML MPF 30ML VIAL ONE ×2 (17:10→17:22)
[2021-03-12] MEDS ORDERED: LIDOCAINE 1% LOCAL 20 ML VIAL ONE ×2 (17:10→17:22)
[2021-03-12] MEDS ORDERED: KETAMINE 50 MG/5 ML SYRINGE ONE (17:17)
[2021-03-12] MEDS ORDERED: fentaNYL citrate 100 MCG/2 ML VIAL ONE (17:21)
[2021-03-12] MEDS ORDERED: PHENYLEPHRINE HCL 10 MG/ML VIAL ONE (17:57)
[2021-03-12] MEDS ORDERED: PROPOFOL IV EMULSION 10 MG/ML 20 ML VIAL IV ONE (17:57)
[2021-03-12] MEDS: HEPARIN SODIUM IV ONE ×2 (18:00→18:25)
--- NOTE | 2021-03-12 18:08 | Operative Report ---
Post Operative Report Pre & Post Diagnosis Operation Date: 03/12/21 11:15 Pre-Op Diagnosis: Embolism left lower extremity Post-Op Diagnosis: Embolism left lower extremity I identified the patient and participated in the time-out.: Yes Procedure Operation Date: 03/12/21 11:15 Actual Procedures p Thrombectomy Left Lower Extremity(Left) - Javier Crawford MD Surgeon Javier Crawford MD Hand Brim Ironer none Estimated Blood Loss 50 Findings Consistent with Post-Op Diagnosis Specimens none Anesthesia Type MAC Complications none Disposition Accompanied Patient To Recovery: No Disposition: Recovery Room Indications This is 80-year-old gentleman who was admitted hospital shortness of breath. He was found to have a non-STEMI myocardial infarction as well as worsening kidney function and shortness of breath. His cardiac ejection fraction dropped down to 25%. He had bilateral pleural effusions. He was tapped earlier today with 1800 from 1 side and 1500 from the other side of the chest withdrawn. Post thoracent esis he had acute onset of numbness of the left foot. Thrombectomy was recommended. He was told that due to his medical condition at this time that he be high risk for bypass surgery. He also cannot have any endovascular procedure due to his acute renal insufficiency. I have discussed the risks options and benefits of the procedure with the patient. The patient understands the risks options and benefits and agrees to the procedure. Description of Procedure The patient was taken to the operating room and placed in supine position. The left leg was then prepped and draped in a sterile manner. The patient was identified and a timeout was performed. Longitudinal groin incision was then performed. This was done after local anesthesia was accomplished. Dissection was carried down through the common femoral profundofemoral superficial femoral arteries identified. There is good pulse in this artery. The common femoral had a large posterior plaque present in the upper portion near the inguinal ligament. Patient was given 5000 heparin IV and the arteries were clamped. Transverse arteriotomy was made in the distal common femoral artery. Using #3 #4 Rosie catheter a small clot was removed from the left lower extremity. The Rosie cannot be passed further down then the upper calf. Resistance was felt to be fairly hard at that point. The arteriotomy was then closed with interrupted 5-0 Prolene's. Clamps were removed there is excellent Doppler signals heard in the superficial femoral profundofemoral and common femoral a rteries however I believe you had a weak Doppler in the popliteal artery and no Doppler showed on the foot. The foot did not appear mottled but did not have normal capillary refill. This point we decided not to do anything further as far as attempt at bypass or endovascular due to his ongoing significant problems. Adequate hemostasis was then obtained of the wound. Wound was then closed in usual fashion using a running 2-0 Vicryl suture for the femoral sheath and a 3 oh for the subcutaneous layer. Jonah were used for the skin edges. Sterile dressings were applied.The patient left the operation room in satisfactory condition and tolerated the procedure well. All needle and sponge counts were correct at the end of the procedure. I attest to the content of the Intraoperative Record and any orders documented therein. Any exceptions are noted below.
[2021-03-12] MEDS ORDERED: ATROPINE SULFATE 0.1 MG/ML 10ML SYR IV PRN (18:21)
[2021-03-12] MEDS ORDERED: ePHEDrine sulfate 50 MG/ML AMP IV PRN (18:21)
--- NOTE | 2021-03-12 19:04 | Anesthesiology Progress Note ---
Date of Service March 12, 2021 Anesthesia Post Procedure Vital Signs Vital Signs: Temp Pulse Pulse Pulse Resp BP BP 03/12/21 18:50 37.6 C H 101 H 20 107/67 03/12/21 18:40 102 H 20 100/67 03/12/21 18:30 102 H 26 H 94/63 L 03/12/21 18:20 108 H 24 95/73 L 03/12/21 18:11 37.0 C 101 H 16 95/73 L 03/12/21 17:00 37.0 C 69 18 121/76 03/12/21 16:38 37.2 C 73 18 111/72 03/12/21 13:03 112/62 03/12/21 12:00 36.9 C 77 18 144/73 H 03/12/21 11:00 125 H 152/92 H 03/12/21 10:41 152/92 H 03/12/21 10:13 140 H 03/12/21 08:17 36.8 C 77 18 144/77 H 03/12/21 08:14 92 H 03/12/21 05:12 36.1 C L 79 16 144/84 H 03/11/21 23:29 36.5 C 106 H 18 150/89 H 03/11/21 23:00 107 H 03/11/21 21:32 36.5 C 123 H 18 03/11/21 19:41 36.5 C 111 H 18 166/99 H BP Pulse Ox 03/12/21 18:50 93 03/12/21 18:40 94 03/12/21 18:30 100 03/12/21 18:20 100 03/12/21 18:11 100 03/12/21 17:00 96 03/12/21 16:38 100 03/12/21 13:03 03/12/21 12:00 92 03/12/21 11:00 03/12/21 10:41 03/12/21 10:13 03/12/21 08:17 96 03/12/21 08:14 03/12/21 05:12 98 03/11/21 23:29 99 03/11/21 23:00 03/11/21 21:32 143/89 H 94 03/11/21 19:41 97 Transfer of Care Handoff Completed per policy Notes Mental Status: alert / awake / arousable Patient Amnestic to Procedure: Yes Nausea / Vomiting: adequately controlled Pain: adequately controlled Airway Patency, RR, SpO2: stable & adequate BP & HR: stable & adequate Hydration State: stable & adequate Anesthetic Complications: no major complications apparent
[2021-03-12] MEDS ORDERED: oxyCODONE/ACETAMINOPHEN 5mg/325mg TAB PO PRN (19:16)
[2021-03-12 20:19] LABS: Basophils # (auto) 0.01 K/uL (0-0.2); Basophils % (auto) 0.1 %; Hematocrit (blood only) 27.9 % (42-52); Hemoglobin 9.6 g/dL (14.0-18.0); Immature Granulocytes # (auto) 0.05 K/uL (0.00-0.02); Immature Granulocytes % (auto) 0.4 %; Lymphocytes # (auto) 3.68 K/uL (1.2-3.4); Lymphocytes % (auto) 27.8 %; Mean Corpuscular Hemoglobin 35.3 pg (25-34); Mean Corpuscular Volume 102.6 fL (80-100); Mean Platelet Volume 9.8 fL (7.4-10.4); Monocytes # (auto) 1.08 K/uL (0.11-0.59); Monocytes % (auto) 8.2 %; Neutrophils # (auto) 8.43 K/uL (1.4-6.5); Neutrophils % (auto) 63.5 %; Platelet Count 439 K/uL (130-400); RDW Coefficient of Variation 16.1 % (11.5-14.5); RDW Standard Deviation 58.3 fL (36.4-46.3); Red Blood Count 2.72 M/uL (4.7-6.1); White Blood Count 13.25 K/uL (4.8-10.8)
[2021-03-12 20:31] LABS: Mean Corpuscular Hgb Conc 34.4 g/dL (32-36)
[2021-03-12 20:37] LABS: BUN Creatinine Ratio 23.8 (10-20); Creatinine Clr Calc Pharmacy 21.8 ml/min; Est GFR (African American) 22.2 ml/min; Est GFR (Non-African American) 19.1 ml/min; Potassium 4.1 mmol/L (3.5-5.1)
--- NOTE | 2021-03-12 21:16 | Critical Care Consultation ---
Date of Consultation March 12, 2021 Assessment & Plan (1) Embolism, arterial, leg, left: Chest x-ray 03/11/2021 personally reviewed: Portable film, good respiratory effort, bilateral costophrenic angles are increased pulmonary vascular markings, increased cardiac silhouette --Acute hypoxic respiratory failure Secondary to systolic CHF with pulmonary edema Continue with diuresis as tolerated COVID-19 PCR negative BiPAP nightly and as needed shortness of breath --Bilateral pleural effusion In the patient was in acute distress We will do thoracentesis --HAWA Continue with home CPAP setting --Smoker Importance of quitting explained to the patient Plan: For thoracentesis bilaterally today to prevent intubation BiPAP/CPAP nightly and as needed shortness of breath Please note the above document was generated using voice recognition software. It may contain grammatical, syntax or spelling errors.Any formal questions or concerns about the content, text or information contained within the body of this dictation should be directly addressed to the provider for clarification. Patient admitted to the ICU s/p thrombectomy of the LEFT lower extremity in the setting of acute embolic event. Significant stenosis noted during procedure. Poor PT pulses and no DP pulse s/p intervention. Monitor for s/s bleeding s/p vascular intervention. Defer to vascular surgery for ongoing management. History of Present Illness Attending Physician: Umm Lagunas MD History of Present Illness Patient is a 80-year-old male with a significant past medical history of CHF with poor ejection fraction from 20 to 25%, CLL, CKD presented to the emergency department with worsening shortness of breath. Chest x-ray demonstrated pleural effusions. Patient had increasing respiratory distress overnight and required utilization of CPAP. Patient underwent bilateral thoracentesis today with significant improvement of symptoms. Unfortunately, patient developed acute limb ischemia of the LEFT lower extremity later in the day requiring emergent thrombectomy. Patient underwent thrombectomy and was subsequently admitted to the ICU for ongoing management. Allergies Allergy/AdvReac Type Severity Reaction Status Date / Time RYLEE Inhibitors AdvReac Intermediate Renal Verified 03/11/21 14:43 Complications Home Medications Medication Instructions Recorded Confirmed Type Black Elderberry(Ellison-Flower) 575 mg PO DAILY 03/11/21 03/11/21 History acetaminophen 500 mg tablet 500 mg PO Q6H PRN 03/11/21 03/11/21 History (Tylenol Extra Strength) amino acids-multivit with iron and 1 tab PO DAILY 03/11/21 03/11/21 History minerals tablet amlodipine 2.5 mg tablet 2.5 mg PO DAILY 03/11/21 03/11/21 History apple cider vinegar 500 mg tablet 500 mg PO DAILY 03/11/21 03/11/21 History azelastine 137 mcg (0.1 %) nasal 2 spray INTRANASAL BID 03/11/21 03/11/21 History spray aerosol cholecalciferol (vitamin D3) 25 25 mcg PO DAILY 03/11/21 03/11/21 History mcg (1,000 unit) tablet (Vitamin D3) cyanocobalamin (vitamin B-12) 1,000 mcg PO DAILY 03/11/21 03/11/21 History 1,000 mcg tablet (Vitamin B-12) epoetin abel 40,000 unit/mL 40,000 unit SUBCUT DIRECTED 03/11/21 03/11/21 History injection solution (Procrit) fluticasone propionate 50 1 spray INTRANASAL DAILY 03/11/21 03/11/21 History mcg/actuation nasal spray,suspension folic acid 1 mg tablet 1 mg PO DAILY 03/11/21 03/11/21 History levothyroxine 75 mcg tablet 75 mcg PO DAILYBB 03/11/21 03/11/21 History pyridoxine (vitamin B6) 100 mg 100 mg PO BID 03/11/21 03/11/21 History tablet (Vitamin B-6) triamcinolone acetonide 0.1 % 1 applic TOPICAL HS PRN 03/11/21 03/11/21 History topical ointment turmeric 450 mg-turmeric root 1 cap PO DAILY 03/11/21 03/11/21 History extract 50 mg capsule Patient History Medical History Anemia in CKD (chronic kidney disease) CKD (chronic kidney disease) stage 3, GFR 30-59 ml/min CLL (chronic lymphocytic leukemia) H/O: rheumatic fever HTN (hypertension) LBBB (left bundle branch block) MDS (myelodysplastic syndrome), low grade Nocturnal hypoxemia HAWA (obstructive sleep apnea) Prostate cancer Tobacco use disorder Surgical History H/O uvulectomy S/P tonsillectomy and adenoidectomy Family History Other Family history non-contributory Social History Smoking Status: Former smoker Second Hand Exposure: No; Do You Dip or Chew Tobacco: No; Tobacco Cessation Education Requested by Patient: No Hx Alcohol Use: No Hx Substance Use: No Preferred Language: Bolivian Communication Ability: Effective 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 GENERAL - 80-year-old male appearing his stated age who is in no acute distress. Communicates well with provider and answers questions appropriately. HEAD - NC/AT. EYES - PERRL with EOMI bilaterally. Sclera anicteric. EARS - No deformities of external structures noted on gross examination bilaterally. NOSE - Midline and without cyanosis. No epistaxis or purulent drainage noted. MOUTH/OROPHARYNX - Without perioral cyanosis. Buccal mucosa pink and moist. NECK - Neck with FROM. LUNGS - Chest wall symmetric without accessory muscle use, intercostals retractions, or central cyanosis. Normal vesicular breath sounds CTA B/L. No wheezes, rales, or rhonchi appreciated. CARDIAC - RRR with S1/S2. No murmur, rubs, or gallops appreciated. No reproducible tenderness to palpation appreciated over the anterior chest wall. ABDOMEN - Abdominal contour flat without pulsations or visible masses. BS normoactive all four quadrants. No tenderness, palpable masses, hepatosplenomegaly, or ascites noted. EXTREMITIES - Dressing to the LEFT groin clean, dry, and intact. No palpable distal pulses. Leg is warm to touch. Slight cyanosis of the distal tips of the toes. ROM intact. NEUROLOGIC - Cranial nerves II through XII grossly intact. PSYCH - A&Ox3 and cooperates fully with examiner. Pt is very pleasant and interacts well with examiner. Results & Data Results & Data ([facility]) Vital Signs (Past 12 Hours) Vital Signs Temp Pulse Pulse Pulse Resp BP BP 03/12/21 19:10 105 H 24 101/75 03/12/21 19:00 106 H 23 102/62 03/12/21 18:50 37.6 C H 101 H 20 107/67 03/12/21 18:40 102 H 20 100/67 03/12/21 18:30 102 H 26 H 94/63 L 03/12/21 18:20 108 H 24 95/73 L 03/12/21 18:11 37.0 C 101 H 16 95/73 L 03/12/21 17:00 37.0 C 69 18 121/76 03/12/21 16:38 37.2 C 73 18 111/72 03/12/21 13:03 112/62 03/12/21 12:00 36.9 C 77 18 144/73 H 03/12/21 11:00 125 H 152/92 H 03/12/21 10:41 152/92 H 03/12/21 10:13 140 H Pulse Ox 03/12/21 19:10 94 03/12/21 19:00 93 03/12/21 18:50 93 03/12/21 18:40 94 03/12/21 18:30 100 03/12/21 18:20 100 03/12/21 18:11 100 03/12/21 17:00 96 03/12/21 16:38 100 03/12/21 13:03 03/12/21 12:00 92 03/12/21 11:00 03/12/21 10:41 03/12/21 10:13 Coding Level of Care Code Critical Care 1st 30-74 mins Diagnoses Embolism, arterial, leg, left I74.3
[2021-03-12 22:03] LABS: Partial Thromboplastin Ratio 1.4; Partial Thromboplastin Time 37.6 Seconds (21.0-31.0)
[2021-03-12] MEDS ORDERED: HEPARIN SOD (PORCINE) 1000 UNIT/ML IV ONE (22:13)
--- NOTE | 2021-03-12 22:22 | Electrocardiogram Report ---
Test Reason : Blood Pressure : / mmHG Vent. Rate : 111 BPM Atrial Rate : 111 BPM P-R Int : 152 ms QRS Dur : 150 ms QT Int : 368 ms P-R-T Axes : 078 050 210 degrees QTc Int : 500 ms Sinus tachycardia Possible Left atrial enlargement Left bundle branch block Abnormal ECG When compared with ECG of 29-JAN-2013 11:29, Premature ventricular complexes are no longer Present Vent. rate has increased BY 42 BPM Confirmed by William Pastrana ([id number]) on 03/12/2021 10:21:38 PM Referred By: REFERRED SELF Confirmed By:William Pastrana
[2021-03-12] MEDS ORDERED: HEPARIN IV BOLUS 3,000 UNITS in SYRINGE 0 ML IV ONE (22:45)
[2021-03-13] MEDS: AMIODARONE / D5W 360 MG/200 ML BAG IV SCH ×2 (03:11→15:30)
[2021-03-13 04:47] LABS: Hematocrit (blood only) 28.2 % (42-52); Hemoglobin 9.6 g/dL (14.0-18.0); Mean Corpuscular Hemoglobin 35.4 pg (25-34); Mean Corpuscular Volume 104.1 fL (80-100); Mean Platelet Volume 9.5 fL (7.4-10.4); Platelet Count 337 K/uL (130-400); RDW Coefficient of Variation 16.2 % (11.5-14.5); RDW Standard Deviation 59.5 fL (36.4-46.3); Red Blood Count 2.71 M/uL (4.7-6.1); White Blood Count 10.14 K/uL (4.8-10.8)
[2021-03-13 05:05] LABS: BUN Creatinine Ratio 24.6 (10-20); Creatinine Clr Calc Pharmacy 22.6 ml/min; Est GFR (African American) 23.2 ml/min; Magnesium 2.5 mg/dl (1.8-2.4); Potassium 3.7 mmol/L (3.5-5.1)
[2021-03-13 05:12] LABS: Partial Thromboplastin Ratio 2.1
[2021-03-13 05:14] LABS: Phosphorus 5.5 mg/dl (2.5-4.9); Troponin I 7.92 ng/ml (0-0.045)
[2021-03-13 05:22] LABS: Partial Thromboplastin Time 55.5 Seconds (21.0-31.0)
--- NOTE | 2021-03-13 06:21 | Electrocardiogram Report ---
Test Reason : Blood Pressure : / mmHG Vent. Rate : 080 BPM Atrial Rate : 081 BPM P-R Int : 174 ms QRS Dur : 152 ms QT Int : 446 ms P-R-T Axes : 059 043 207 degrees QTc Int : 514 ms Poor data quality, interpretation may be adversely affected Sinus rhythm with occasional Premature ventricular complexes Possible Left atrial enlargement Left bundle branch block Abnormal ECG When compared with ECG of 11-MAR-2021 20:11, Premature ventricular complexes are now Present Confirmed by William Pastrana ([id number]) on 03/13/2021 6:21:30 AM Referred By: REFERRED SELF Confirmed By:William Pastrana
[2021-03-13] MEDS: INSULIN ASPART 100 UNITS/ML 3 ML PEN SC SCH ×5 (06:57→21:25)
--- NOTE | 2021-03-13 07:05 | Critical Care Progress Note ---
Date of Service March 13, 2021 Assessment & Plan (1) Embolism, arterial, leg, left: Plan: Chest x-ray 03/11/2021 personally reviewed: Portable film, good respiratory effort, bilateral costophrenic angles are increased pulmonary vascular markings, increased cardiac silhouette --Acute hypoxic respiratory failure Secondary to systolic CHF with pulmonary edema Continue with diuresis as tolerated COVID-19 PCR negative BiPAP nightly and as needed shortness of breath --Bilateral pleural effusion In the patient was in acute distress We will do thoracentesis --HAWA Continue with home CPAP setting --Smoker Importance of quitting explained to the patient Plan: For thoracentesis bilaterally today to prevent intubation BiPAP/CPAP nightly and as needed shortness of breath Patient admitted to the ICU s/p thrombectomy of the LEFT lower extremity in the setting of acute embolic event. Significant stenosis noted during procedure. Poor PT pulses and no DP pulse s/p intervention. Monitor for s/s bleeding s/p vascular intervention. Defer to vascular surgery for ongoing management. Admission and Anticipated Discharge Date Admission Date: March 11, 2021 Review of Systems Review of Systems: All systems reviewed & are unremarkable except as noted in HPI & below Constitutional: Denies fever, chills, weight change Eyes: Denies blurry vision, vision changes ENT: Denies sore throat, sinus pain Cardiovascular: Denies chest pain, palpitations Respiratory: Denies shortness of breath Gastrointestinal: Denies abdominal pain, nausea, vomiting, constipation, diarrhea Genitourinary: Denies urinary symptoms including dysuria Musculoskeletal: Denies weakness, muscle aches/pain, joint aches/pain Neurological: Denies headache, numbness, tingling, focal weakness Physical Exam Physical Exam: General: Grossly A&O. NAD. Cooperative. HEENT: Atraumatic, normocephalic. EOMI Pulm: CTAB. -wheezes, -rales, -rhonchi. No respiratory distress. Cardiac: RRR, -mrg. Radial pulses intact and symmetrical. Abdominal: Nontender, nondistended, soft. Results & Data Results & Data ([facility]) Vital Signs (Past 12 Hours) Vital Signs Pulse Pulse Resp BP BP Pulse Ox 03/13/21 05:11 105 H 90/62 L 99 03/13/21 04:21 108 H 102/71 100 03/13/21 03:21 107 H 102/77 99 03/13/21 03:11 104 H 20 100 03/13/21 02:21 89 96/64 L 100 03/13/21 01:21 102 H 110/76 99 03/13/21 00:21 109 H 101/69 100 03/12/21 23:21 102 H 101/72 100 03/12/21 22:44 74 37 H 100 03/12/21 22:21 105 H 95/60 L 98 03/12/21 21:21 101 H 94/62 L 99 03/12/21 20:21 105 H 109/71 99 03/12/21 19:10 105 H 24 101/75 94 Resident Activity Tracking Resident Involvement: Resident Care Provided Care Provided: Adult Hospital Medicine
[2021-03-13] MEDS: LEVOTHYROXINE SODIUM 75 MCG TABLET PO SCH (08:03)
[2021-03-13] MEDS: ASPIRIN 81 MG ECTAB PO SCH (08:09)
[2021-03-13] MEDS: FUROSEMIDE 20 MG in SYRINGE 0 ML IV SCH ×3 (08:14→21:26)
--- NOTE | 2021-03-13 09:18 | Surgery Progress Note ---
Date of Service March 13, 2021 Assessment & Plan (1) Embolism, arterial, leg, left: Plan: At surgery only a small clot was removed from the left lower leg. The shara could not be passed any further than 4 fingerbreaths below the knee. Humble like calcifications and arterial occlusion at that level. Being he has no pain in the foot, he is getting some circulation to the foot. At this point would just observe him conservatively. If his circulation worsens and he develops rest pain then an amputation would be needed. If he recovers from his present medical problems we can deal with any significant vascular problems at a later date if needed. He can be transferred from the unit and may ambulate as tolerated. Would recommend PT/OT once medically stable. Admission and Anticipated Discharge Date Admission Date: March 11, 2021 Subjective Patient complaining of a slight numb feeling of his left foot but no pain. No problem moving his toes or foot. Physical Exam Constitutional: WD/WN, vitals as above Cardiovascular: Vessels: femoral pulses present and popliteal pulses present (good doppler on left); + posterior tibial pulses abnormal and + dorsalis pedis pulses abnormal Extremities: + abnormal capillary refill (markedly decrease on left) Skin: + incision (dressing intact) Results & Data ([facility]) Vital Signs (Past 12 Hours) Vital Signs Pulse Resp BP Pulse Ox 03/13/21 05:11 105 H 90/62 L 99 03/13/21 04:21 108 H 102/71 100 03/13/21 03:21 107 H 102/77 99 03/13/21 03:11 104 H 20 100 03/13/21 02:21 89 96/64 L 100 03/13/21 01:21 102 H 110/76 99 03/13/21 00:21 109 H 101/69 100 03/12/21 23:21 102 H 101/72 100 03/12/21 22:44 74 37 H 100 03/12/21 22:21 105 H 95/60 L 98 03/12/21 21:21 101 H 94/62 L 99
--- NOTE | 2021-03-13 09:22 | Critical Care Progress Note ---
Date of Service March 13, 2021 Assessment & Plan (1) Bilateral pleural effusion: (2) Acute decompensated heart failure: (3) Acute respiratory failure with hypoxia: (4) Tobacco use disorder: (5) HAWA (obstructive sleep apnea): Plan: Chest x-ray 03/11/2021 personally reviewed: Portable film, good respiratory effort, bilateral costophrenic angles are increased pulmonary vascular markings, increased cardiac silhouette --Acute hypoxic respiratory failure Secondary to systolic CHF with pulmonary edema Continue with diuresis as tolerated COVID-19 PCR negative BiPAP nightly and as needed shortness of breath --Bilateral pleural effusion In the patient was in acute distress S/p bilateral thoracentesis done 03/12/2021, transudative Likely from underlying CHF and CKD Pleural fluid left: LDH 91, protein1.9, glucose 151, pH: 7.39 Pleural fluid right: LDH 93, protein 2.2, glucose 143, pH: 7.44 Serum: LDH 465, protein 6.9 Follow-up cytology --Left lower extremity arterial embolization Status post OR on 03/12/2021 and subsequently thrombectomy Pulses are still low Patient is not in acute pain Vascular following --A. fib with RVR On amiodarone drip On beta-blockers as well --HAWA Continue with home CPAP setting --Smoker Importance of quitting explained to the patient --Prophylaxis VTE: Heparin drip GI: None Lines: Left radial Diet: Cardiorenal Plan: In/out: -4.2 L, good urine output Continue with Lasix 20 mg every 8 hours Continue with amiodarone drip Patient's blood pressure is on the softer side. Hold amlodipine If the blood pressure stays good after getting the Lasix will give half dose of metoprolol succinate. Follow-up Dr. Case's recommendation I think patient is hemodynamically stable to be sent out of the ICU Still continue with BiPAP nightly this will help with ejection fraction as well as diuresis. Please note the above document was generated using voice recognition software. It may contain grammatical, syntax or spelling errors.Any formal questions or concerns about the content, text or information contained within the body of this dictation should be directly addressed to the provider for clarification. Admission and Anticipated Discharge Date Admission Date: March 11, 2021 Subjective Patient seen and examined at bedside in acute distress, no adverse events overnight. No headache, shortness of breath is significantly improved No nausea or vomiting Patient just had breakfast. No fever or chills Denies any pain in the left lower extremity. Review of Systems Review of Systems: All systems reviewed & are unremarkable except as noted in Subjective Physical Exam Physical Exam: Constitutional: No acute distress HEENT: EOMI, PERRLA Respiratory system: Good air entry b/l, no wheeze, no rhonchi, minimal crackles b/l CVS: S1-S2 positive, no murmurs or gallops, distant heart sounds Abdomen: Soft, nontender, nondistended, positive bowel sounds x4 Extremities: +2 pulses bilaterally radialis/right dorsalis pedis, cold left toes, decreased pulses left DP and PT, no cyanosis, No edema Neuro: Awake alert oriented x3 Psych: Normal mood and affect G/U: Positive Anthony Skin: no rashes, warm and dry Lymphatic: no cervical or axillary lymphadenopathy Results & Data Results & Data ([facility]) Vital Signs (Past 12 Hours) Vital Signs Pulse Resp BP Pulse Ox 03/13/21 05:11 105 H 90/62 L 99 03/13/21 04:21 108 H 102/71 100 03/13/21 03:21 107 H 102/77 99 03/13/21 03:11 104 H 20 100 03/13/21 02:21 89 96/64 L 100 03/13/21 01:21 102 H 110/76 99 03/13/21 00:21 109 H 101/69 100 03/12/21 23:21 102 H 101/72 100 03/12/21 22:44 74 37 H 100 03/12/21 22:21 105 H 95/60 L 98 03/12/21 21:21 101 H 94/62 L 99 03/13/21 04:38 03/13/21 04:38 Coding Level of Care Code 15885 Subseq Hosp Care Lvl 3 Diagnoses Bilateral pleural effusion J90 Acute decompensated heart failure I50.9 Acute respiratory failure with hypoxia J96.01 Tobacco use disorder F17.200 HAWA (obstructive sleep apnea) G47.33
[2021-03-13] MEDS: METOPROLOL SUCC 25MG EXT REL TAB PO SCH (09:32)
--- NOTE | 2021-03-13 10:55 | Cardiology Progress Note ---
Date of Service March 13, 2021 Assessment & Plan (1) NSTEMI (non-ST elevated myocardial infarction): (2) Acute decompensated heart failure: (3) Atrial fibrillation with RVR: (4) Embolism, arterial, leg, left: (5) Acute kidney injury superimposed on chronic kidney disease: Plan: Continue IV Lasix. Monitor daily weight, fluid balance, GFR, and electrolytes. BiPAP nightly as needed for shortness of breath. COVID-19 PCR negative.Status post bilateral thoracentesis performed 03/12/2021 with transudate of fluid. Transition low-dose Toprol-XL to metoprolol trite tartrate 12.5 mg twice daily. Continue IV amiodarone infusion. Hold amlodipine. Continue low-dose aspirin and IV heparin infusion. Further management of left lower extremity arterial embolism as per vascular surgery. Admission and Anticipated Discharge Date Admission Date: March 11, 2021 Subjective Patient seen and examined the bedside. Denies chest pain or shortness of breath. Telemetry reveals atrial fibrillation with heart rate ranging from 90- 100 bpm. IV amiodarone infusing. Fluid balance -4.2 L. Creatinine trending downward to 2.86 today. Patient taken to the operating room yesterday due to left lower extremity arterial embolism. Procedure was unsuccessful. He continues to report numbness of his left lower extremity this morning. Developed left lower extremity discomfort. Evaluated by vascular surgery who recommended addition of Percocet. Review of Systems Review of Systems: All systems reviewed & are unremarkable except as noted in Subjective Physical Exam Constitutional: well developed and well nourished; not ill appearing Respiratory: normal respiratory effort; no respiratory distress and no labored breathing Auscultation: no crackles, no rales, no rhonchi and no wheezes Cardiovascular: Rate/Rhythm: + irregularly irregular Heart Sounds: normal S1 and normal S2; no murmur Vessels: dorsalis pedis pulses present (Left- sided pulses are not palpable); no JVD, no carotid bruit and + posterior tibial pulses abnormal (Left-sided pulses are not palpable) Extremities: + abnormal capillary refill (Decreased left lower extremity capillary refill, cool to touch) and no edema Gastrointestinal (Abdomen): Inspection/Auscultation: normal bowel sounds; abdomen not distended Percussion/Palpation: abdomen soft; abdomen nontender, no guarding and abdomen not rigid Neurologic: CN's II-XI intact bilaterally; + abnormal touch/pain/proprioception (Left lower extremity numbness) Psychiatric: A+Ox3, euthymic affect Results & Data ([facility]) Vital Signs (Past 12 Hours) Vital Signs Pulse Resp BP Pulse Ox 03/13/21 05:11 105 H 90/62 L 99 03/13/21 04:21 108 H 102/71 100 03/13/21 03:21 107 H 102/77 99 03/13/21 03:11 104 H 20 100 03/13/21 02:21 89 96/64 L 100 03/13/21 01:21 102 H 110/76 99 03/13/21 00:21 109 H 101/69 100 03/12/21 23:21 102 H 101/72 100 03/12/21 22:44 74 37 H 100
--- NOTE | 2021-03-13 11:34 | Hospitalist Progress Note ---
Date of Service March 13, 2021 Assessment & Plan (1) Acute respiratory failure: (2) Bilateral pleural effusion: (3) NSTEMI (non-ST elevated myocardial infarction): (4) Acute decompensated heart failure: Plan: 80yo M with a PMH CLL, low-grade myelodysplastic syndrome, HTN, moderate aortic stenosis, HTN, LBBB, CKD III and other medical problems listed below who presents with fevers, chills and shortness of breath x 1 week. In the setting of decompensated heart failure, bilateral pleural effusions, new onset A fib with RVR Was initially requiring bipap then transitioned to NC TTE from 03/11/21 with new onset severe left ventricular systolic dysfunction, ej ection fraction 20-25% CXR with cardiomegaly with pulmonary edema and layering pleural effusions Evaluated by Cardiology Has been on heparin drip Initial troponin 1.4 -> 2.2 ->9.5 ->10.7 -> 12.1-->7 Started on aspirin and metoprolol Bilateral pleural effusions R>L on imaging Had bilateral thoracentesis by pulmonary with removal of 1550 mls of fluid from the left and 1850 mls of fluid from the right on 03/12/21 Patient feeling better. Respiratory failure has resolved. Has been weaned off oxygen. Currently on room air. (5) Atrial fibrillation with RVR: Plan: Patient has been having A. fib with RVR with occasional conversion to sinus rhythm. Currently in A. fib with RVR. Continue IV amiodarone drip Continue Lopressor Cardiology on board (6) Embolism, arterial, leg, left: Plan: Had a thromboembolic event yesterday with acute onset left leg paresthesia. In the setting of NSTEMI, new acute systolic heart failure with EF of 20 to 25% A. fib with RVR. Had thrombectomy by vascular surgeon yesterday. Baseline vascular surgeons report, likely still has residual thrombus that could not be addressed. We will continue medical management with anticoagulation and antiplatelet. Continue to monitor lower extremity (7) Acute kidney injury superimposed on chronic kidney disease: Plan: Initial Cr 2.02 (baseline ~ 1.5). In setting of decompensated heart failure, NSTEMI Renal function worsening despite diuresis - Cr 2.02 -> 2.73 -> 2.89 ->2.97->2.86 Renal ultrasound without hydronephrosis Food Taster recommendation appreciated Continue to monitor renal function Good urine output Avoid nephrotoxins (8) Leukocytosis: Plan: WBC 25k yesterday down to 12.87k today (close to baseline) lactate initially 3.9 --> 1.8, procalcitonin initially wnl --> 1.45 CXR also showing right perihilar and right lung base predominant airspace opacities. Superimposed pneumonia would be difficult to exclude UA 1+ leuk esterase, no urine bacteria Was initially started on empiric Zosyn, transitioned to Rocephin Blood and urine cultures negative. Leukocytosis is resolved. Discontinue antibiotics and monitor (9) HTN (hypertension): Plan: BP running low this morning in the nineties two hundreds. Hold amlodipine (10) Aortic stenosis: Plan: Known moderate aortic stenosis (11) CLL (chronic lymphocytic leukemia): Plan: Previously received oncology care in [place], received treatment once for this (immunotherapy) in 2012 and remains in remission Now following with Dr. Armenta (12) Anemia in CKD (chronic kidney disease): Plan: Hgb 11 (baseline) on admission. Dropped to 9-10. Stable in 9 (13) HAWA (obstructive sleep apnea): Plan: CPAP HS DVT Ppx: IV heparin Code status: FULL PCP: Niraj Dispo: Can transfer to PCU Admission and Anticipated Discharge Date Admission Date: March 11, 2021 Subjective 80-year-old man with history of CLL, low-grade MDS who presented with worsening shortness of breath and dyspnea on exertion, subjective low-grade fever at home over the past 5days to 1 week Found to have NSTEMI, acute systolic heart failure and A. fib with RVR. Was on heparin drip. Patient also had pleural effusion required thoracentesis on 03/12/21 by pulmonary. Also had ERICK on CKD3 with worsening renal function. Nephrology was consulted Patient developed acute onset Left foot paresthesia on 03/12/2021. Noted to have left LE thromboembolic event. Was evaluated by vascular surgeon and taken for thrombectomy. Dr. Crawford was able to remove a small clot but the catheter could not be passed further down. Patient seen and examined this morning. Still reports some paresthesia of the left foot. No pain. Doppler pulses absent in the left posterior tibial and pedal arteries Patient reports breathing better. Has been weaned off oxygen. Currently on room. Review of Systems Ear, Nose, Mouth, Throat: no problem reported Respiratory: Shortness of breath resolved. Occasional cough. Cardiovascular: Additional Comments: No chest pain. No shortness of breath. No palpitations Gastrointestinal: no abdominal pain, no nausea and no vomiting Musculoskeletal: Left leg paresthesia Neurologic: + paresthesia; no headache(s) and no confusion Psychiatric: no depression and no anxiety Physical Exam Constitutional: + well hydrated; no acute distress Eyes: PERRL, conjunctivae normal, anicteric sclerae ENMT: external ear and nose normal, oropharynx normal Respiratory: normal respiratory effort, lungs clear to auscultation Cardiovascular: Tachycardia, irregular rhythm. S1-S2. No pedal edema Gastrointestinal (Abdomen): normal bowel sounds, soft, nontender, no hepatosplenomegaly Musculoskeletal: No pedal edema. Dorsalis pedis and posterior tibial pulses on Left LE not palpable Neurologic: PERRL, EOMI, accommodation nl, no face palsy, no dysarthria Psychiatric: A+Ox3, euthymic affect Genitourinary: Anthony in situ Results & Data Results & Data ([facility]) Vital Signs (Past 12 Hours) Vital Signs Pulse Resp BP Pulse Ox 03/13/21 10:21 114 H 92/71 L 95 03/13/21 09:21 108 H 16 118/69 96 03/13/21 08:21 109 H 14 106/66 96 03/13/21 07:21 106 H 16 99/61 L 95 03/13/21 05:11 105 H 90/62 L 99 03/13/21 04:21 108 H 102/71 100 03/13/21 03:21 107 H 102/77 99 03/13/21 03:11 104 H 20 100 03/13/21 02:21 89 96/64 L 100 03/13/21 01:21 102 H 110/76 99 03/13/21 00:21 109 H 101/69 100 Laboratory Results Abnormal lab results 03/12/21 03/12/21 03/12/21 Range/Units 12:49 20:00 20:00 WBC 13.25 H (4.8-10.8) K/uL RBC 2.72 L (4.7-6.1) M/uL Hgb 9.6 L (14.0-18.0) g/dL Hct 27.9 L (42-52) % MCV 102.6 H (80-100) fL MCH 35.3 H (25-34) pg RDW Std Deviation 58.3 H (36.4-46.3) fL RDW Coeff of Geovanni 16.1 H (11.5-14.5) % Plt Count 439 H (130-400) K/uL Neut # (Auto) 8.43 H (1.4-6.5) K/uL Lymph # (Auto) 3.68 H (1.2-3.4) K/uL [place] # (Auto) 1.08 H (0.11-0.59) K/uL Immature Gran # (Auto) 0.05 H (0.00-0.02) K/uL APTT (21.0-31.0) Seconds Carbon Dioxide 20 L (21-32) mmol/L Anion Gap 13.0 H (3-11) BUN 71 H (7-18) mg/dl Creatinine 2.97 H (0.6-1.4) mg/dl BUN/Creatinine Ratio 23.8 H (10-20) Glucose 130 H (70-99) mg/dl POC Glucose (70-99) mg/dl Calcium 8.0 L (8.5-10.1) mg/dl Phosphorus (2.5-4.9) mg/dl Magnesium (1.8-2.4) mg/dl Lactate Dehydrogenase 465 H (87-241) U/L Troponin I (0-0.045) ng/ml Pleural pH (7.3-7.4) 03/12/21 03/12/21 03/13/21 Range/Units 21:26 Unknown 04:38 WBC (4.8-10.8) K/uL RBC 2.71 L (4.7-6.1) M/uL Hgb 9.6 L (14.0-18.0) g/dL Hct 28.2 L (42-52) % MCV 104.1 H (80-100) fL MCH 35.4 H (25-34) pg RDW Std Deviation 59.5 H (36.4-46.3) fL RDW Coeff of Geovanni 16.2 H (11.5-14.5) % Plt Count (130-400) K/uL Neut # (Auto) (1.4-6.5) K/uL Lymph # (Auto) (1.2-3.4) K/uL [place] # (Auto) (0.11-0.59) K/uL Immature Gran # (Auto) (0.00-0.02) K/uL APTT 37.6 H (21.0-31.0) Seconds Carbon Dioxide (21-32) mmol/L Anion Gap (3-11) BUN (7-18) mg/dl Creatinine (0.6-1.4) mg/dl BUN/Creatinine Ratio (10-20) Glucose (70-99) mg/dl POC Glucose (70-99) mg/dl Calcium (8.5-10.1) mg/dl Phosphorus (2.5-4.9) mg/dl Magnesium (1.8-2.4) mg/dl Lactate Dehydrogenase (87-241) U/L Troponin I (0-0.045) ng/ml Pleural pH 7.44 H (7.3-7.4) 03/13/21 03/13/21 03/13/21 Range/Units 04:38 04:38 08:05 WBC (4.8-10.8) K/uL RBC (4.7-6.1) M/uL Hgb (14.0-18.0) g/dL Hct (42-52) % MCV (80-100) fL MCH (25-34) pg RDW Std Deviation (36.4-46.3) fL RDW Coeff of Geovanni (11.5-14.5) % Plt Count (130-400) K/uL Neut # (Auto) (1.4-6.5) K/uL Lymph # (Auto) (1.2-3.4) K/uL [place] # (Auto) (0.11-0.59) K/uL Immature Gran # (Auto) (0.00-0.02) K/uL APTT 55.5 H* (21.0-31.0) Seconds Carbon Dioxide (21-32) mmol/L Anion Gap (3-11) BUN 70 H (7-18) mg/dl Creatinine 2.86 H (0.6-1.4) mg/dl BUN/Creatinine Ratio 24.6 H (10-20) Glucose 117 H (70-99) mg/dl POC Glucose 119 H (70-99) mg/dl Calcium 8.0 L (8.5-10.1) mg/dl Phosphorus 5.5 H D (2.5-4.9) mg/dl Magnesium 2.5 H (1.8-2.4) mg/dl Lactate Dehydrogenase (87-241) U/L Troponin I 7.920 H* (0-0.045) ng/ml Pleural pH (7.3-7.4) 03/13/21 Range/Units 11:24 WBC (4.8-10.8) K/uL RBC (4.7-6.1) M/uL Hgb (14.0-18.0) g/dL Hct (42-52) % MCV (80-100) fL MCH (25-34) pg RDW Std Deviation (36.4-46.3) fL RDW Coeff of Geovanni (11.5-14.5) % Plt Count (130-400) K/uL Neut # (Auto) (1.4-6.5) K/uL Lymph # (Auto) (1.2-3.4) K/uL [place] # (Auto) (0.11-0.59) K/uL Immature Gran # (Auto) (0.00-0.02) K/uL APTT (21.0-31.0) Seconds Carbon Dioxide (21-32) mmol/L Anion Gap (3-11) BUN (7-18) mg/dl Creatinine (0.6-1.4) mg/dl BUN/Creatinine Ratio (10-20) Glucose (70-99) mg/dl POC Glucose 116 H (70-99) mg/dl Calcium (8.5-10.1) mg/dl Phosphorus (2.5-4.9) mg/dl Magnesium (1.8-2.4) mg/dl Lactate Dehydrogenase (87-241) U/L Troponin I (0-0.045) ng/ml Pleural pH (7.3-7.4)
[2021-03-13 12:41] LABS: Troponin I 5.91 ng/ml (0-0.045)
[2021-03-13] MEDS: HEPARIN SODIUM/DEXTROSE 25,000 UNITS/500 ML BAG IV SCH (13:26)
--- NOTE | 2021-03-13 15:10 | Nephrology Progress Note ---
Date of Service March 13, 2021 Assessment & Plan (1) Acute decompensated heart failure: Plan: new onset LV dysfunction 25% EF w/ LAD WMA on IV amiodarone, adding BB and resuming heparin gtt later today -per cardiology; may need cardiac cath -cont strict I/O, daily STANDING wt, <2 gm daily Na diet ordered -continue 20 mg IV lasix tid and further / higher doses prn (2) Acute kidney injury superimposed on chronic kidney disease: Plan: baseline creatinine 1.4-1.5; at baseline as recently as 03/01/21. chemistries acceptable; volume overload improving but w/ new onset systolic heart failure nonoliguric stage 1 ERICK on CKD3a; was 2.2 on presentation 03/11 and uptrended fast to 2.9 yesterday and today. urine sediment c/w ATN though interstitial nephritis on differential as well. ischemic ATN in setting of new onset LV function and a fib. -diuresis as above -minimize nephrotoxins best we can; all w/ understanding may need cardiac cath -daily bmp Admission and Anticipated Discharge Date Admission Date: March 11, 2021 Subjective had emergent LLE thrombectomy yesterday; on RA; breathing ok; no palpitations, no edema; less orthopnea Review of Systems Review of Systems: All systems reviewed & are unremarkable except as noted in Subjective Physical Exam Constitutional: well developed, well nourished, cooperative and + overweight; no acute distress Eyes: EOM intact bilaterally ENMT: Ears: no external ear abnormality Nose: no external nose abnormality Mouth: + dry oral mucous membranes Neck: no nuchal rigidity Respiratory: normal respiratory effort and able to speak in complete sentences (today not dyspneic after prolonged speech) Auscultation: + diminished lung sounds Cardiovascular: Rate/Rhythm: + tachycardic (in 110s) Heart Sounds: normal S1, normal S2 and + murmur Extremities: no edema Gastrointestinal (Abdomen): Inspection/Auscultation: normal bowel sounds Percussion/Palpation: abdomen soft; abdomen nontender Musculoskeletal: Extremities: strength 5/5 throughout Skin: no rashes, warm and dry Neurologic: maneuvers readily for exam Psychiatric: Orientation: oriented x 3 Results & Data ([facility]) Vital Signs (Past 12 Hours) Vital Signs Temp Pulse Resp BP Pulse Ox 03/13/21 13:00 37 C 03/13/21 12:21 118 H 15 99/67 L 95 03/13/21 11:15 92 H 16 93/69 L 95 03/13/21 10:21 114 H 92/71 L 95 03/13/21 09:21 108 H 16 118/69 96 03/13/21 08:21 109 H 14 106/66 96 03/13/21 07:21 106 H 16 99/61 L 95 03/13/21 05:11 105 H 90/62 L 99 03/13/21 04:21 108 H 102/71 100 03/13/21 03:21 107 H 102/77 99 03/13/21 03:11 104 H 20 100 Laboratory Results 03/13/21 04:38 03/13/21 04:38
[2021-03-13] MEDS: METOPROLOL TARTRATE 25 MG TAB PO SCH (20:27)
[2021-03-14] MEDS: AMIODARONE / D5W 360 MG/200 ML BAG IV SCH (03:28)
[2021-03-14] MEDS: LEVOTHYROXINE SODIUM 75 MCG TABLET PO SCH (05:37)
[2021-03-14] MEDS: FUROSEMIDE 20 MG in SYRINGE 0 ML IV SCH ×3 (05:56→21:38)
[2021-03-14 06:27] LABS: Hemoglobin 10.5 g/dL (14.0-18.0); Mean Corpuscular Hemoglobin 35.8 pg (25-34); Mean Corpuscular Hgb Conc 33.9 g/dL (32-36); Mean Corpuscular Volume 105.8 fL (80-100); Mean Platelet Volume 9.5 fL (7.4-10.4); Platelet Count 345 K/uL (130-400); RDW Coefficient of Variation 16.1 % (11.5-14.5); RDW Standard Deviation 60.7 fL (36.4-46.3); Red Blood Count 2.93 M/uL (4.7-6.1); White Blood Count 9.32 K/uL (4.8-10.8)
[2021-03-14 06:49] LABS: Partial Thromboplastin Ratio 1.8
[2021-03-14 06:50] LABS: Partial Thromboplastin Time 47.9 Seconds (21.0-31.0)
[2021-03-14 06:51] LABS: BUN Creatinine Ratio 23.5 (10-20); Calcium 8.4 mg/dl (8.5-10.1); Creatinine Clr Calc Pharmacy 24.1 ml/min; Est GFR (African American) 25.4 ml/min; Est GFR (Non-African American) 21.9 ml/min; Potassium 4.2 mmol/L (3.5-5.1)
[2021-03-14] MEDS: METOPROLOL TARTRATE 25 MG TAB PO SCH ×2 (08:18→20:21)
[2021-03-14] MEDS: ASPIRIN 81 MG ECTAB PO SCH (08:18)
[2021-03-14] MEDS: INSULIN ASPART 100 UNITS/ML 3 ML PEN SC SCH ×4 (08:52→20:21)
[2021-03-14] MEDS: HEPARIN SODIUM/DEXTROSE 25,000 UNITS/500 ML BAG IV SCH (10:34)
--- NOTE | 2021-03-14 11:45 | Hospitalist Progress Note ---
Date of Service March 14, 2021 Assessment & Plan (1) Acute respiratory failure: (2) Bilateral pleural effusion: (3) NSTEMI (non-ST elevated myocardial infarction): (4) Acute decompensated heart failure: Plan: 80yo M with a PMH CLL, low-grade myelodysplastic syndrome, HTN, moderate aortic stenosis, HTN, LBBB, CKD III and other medical problems listed below who presents with fevers, chills and shortness of breath x 1 week. In the setting of decompensated heart failure, bilateral pleural effusions, new onset A fib with RVR Was initially requiring bipap then transitioned to NC TTE from 03/11/21 with new onset severe left ventricular systolic dysfunction, ej ection fraction 20-25% CXR with cardiomegaly with pulmonary edema and layering pleural effusions Evaluated by Cardiology Has been on heparin drip Initial troponin 1.4 -> 2.2 ->9.5 ->10.7 -> 12.1-->7 Started on aspirin and metoprolol Bilateral pleural effusions R>L on imaging Had bilateral thoracentesis by pulmonary with removal of 1550 mls of fluid from the left and 1850 mls of fluid from the right on 03/12/21 Patient feeling better. Respiratory failure has resolved. Has been weaned off oxygen. Currently on room air. (5) Atrial fibrillation with RVR: Plan: Patient has been having A. fib with RVR with occasional conversion to sinus rhythm. Currently on IV amiodarone drip Continue Lopressor Cardiology on board (6) Embolism, arterial, leg, left: Plan: Had a thromboembolic event yesterday with acute onset left leg paresthesia. In the setting of NSTEMI, new acute systolic heart failure with EF of 20 to 25% A. fib with RVR. Had thrombectomy by vascular surgeon on 03/12/21 Based on vascular surgeons report, likely still has residual thrombus that could not be addressed. We will continue medical management with anticoagulation and antiplatelet. Continue to monitor lower extremity (7) Acute kidney injury superimposed on chronic kidney disease: Plan: Initial Cr 2.02 (baseline ~ 1.5). In setting of decompensated heart failure, NSTEMI Renal function worsening despite diuresis - Cr 2.02 -> 2.73 -> 2.89 ->2.97->2.86-->>2.65 Renal ultrasound without hydronephrosis [employer] Responder recommendation appreciated Renal function improving. Continue to monitor renal function Good urine output Avoid nephrotoxins (8) Leukocytosis: Plan: Leukocytosis resolved Lactate initially 3.9 --> 1.8, procalcitonin initially wnl --> 1.45 CXR also showing right perihilar and right lung base predominant airspace opacities. Superimposed pneumonia would be difficult to exclude UA 1+ leuk esterase, no urine bacteria Was initially started on empiric Zosyn, transitioned to Rocephin Blood and urine cultures negative. Antibiotics were discontinued (9) HTN (hypertension): Plan: BP running low Amlodipine on hold (10) Aortic stenosis: Plan: Known moderate aortic stenosis (11) CLL (chronic lymphocytic leukemia): Plan: Previously received oncology care in [place], received treatment once for this (immunotherapy) in 2012 and remains in remission Now following with Dr. Armenta (12) Anemia in CKD (chronic kidney disease): Plan: Hgb 11 (baseline) on admission. Stable in 9-10s (13) HAWA (obstructive sleep apnea): Plan: CPAP HS DVT Ppx: IV heparin Code status: FULL PCP: Niraj Dispo: PCU Plan: PT/OT eval Admission and Anticipated Discharge Date Admission Date: March 11, 2021 Subjective 80-year-old man with history of CLL, low-grade MDS who presented with worsening shortness of breath and dyspnea on exertion, subjective low-grade fever at home over the past 5days to 1 week Found to have NSTEMI, acute systolic heart failure and A. fib with RVR. Was on heparin drip. Patient also had pleural effusion required thoracentesis on 03/12/21 by pulmonary. Also had ERICK on CKD3 with worsening renal function. Nephrology was consulted Patient developed acute onset Left foot paresthesia on 03/12/2021. Noted to have left LE thromboembolic event. Was evaluated by vascular surgeon and taken for thrombectomy. Dr. Crawford was able to remove a small clot but the catheter could not be passed further down. Patient seen and examined this morning Reports no pain in left foot. States paresthesia is improved No Shortness of breath at rest. Still has occasional cough No chest pain No dizziness Review of Systems Constitutional: no fever and no chills Ear, Nose, Mouth, Throat: no problem reported Respiratory: Shortness of breath resolved. Occasional cough. Cardiovascular: Additional Comments: No chest pain. No shortness of breath. No palpitations Gastrointestinal: no abdominal pain, no nausea and no vomiting Musculoskeletal: Left leg paresthesia Neurologic: + paresthesia; no headache(s) and no confusion Psychiatric: no depression and no anxiety Physical Exam Constitutional: + well hydrated; no acute distress Eyes: PERRL, conjunctivae normal, anicteric sclerae ENMT: external ear and nose normal, oropharynx normal Respiratory: normal respiratory effort; no respiratory distress Diminished breath sounds lung base. No crackles Cardiovascular: Irregularly irregular pulse. S1 S2 Gastrointestinal (Abdomen): normal bowel sounds, soft, nontender, no hepatosplenomegaly Musculoskeletal: No pedal edema Left foot feels cooler than right. DP and PT not palpable Neurologic: PERRL, EOMI, accommodation nl, no face palsy, no dysarthria Psychiatric: A+Ox3, euthymic affect Results & Data Results & Data ([facility]) Vital Signs (Past 12 Hours) Vital Signs Temp Pulse Pulse Resp BP Pulse Ox 03/14/21 11:36 36.4 C L 57 L 20 96/63 L 98 03/14/21 10:01 88 03/14/21 07:42 36.7 C 80 22 102/71 96 03/14/21 05:37 102/70 03/14/21 03:04 36.8 C 116 H 16 104/72 96 03/14/21 02:52 100 H Laboratory Results Abnormal lab results 03/13/21 03/13/21 03/14/21 Range/Units 17:30 20:33 06:11 RBC 2.93 L (4.7-6.1) M/uL Hgb 10.5 L (14.0-18.0) g/dL Hct 31.0 L (42-52) % MCV 105.8 H (80-100) fL MCH 35.8 H (25-34) pg RDW Std Deviation 60.7 H (36.4-46.3) fL RDW Coeff of Geovanni 16.1 H (11.5-14.5) % APTT (21.0-31.0) Seconds BUN (7-18) mg/dl Creatinine (0.6-1.4) mg/dl BUN/Creatinine Ratio (10-20) Glucose (70-99) mg/dl POC Glucose 171 H 173 H (70-99) mg/dl Calcium (8.5-10.1) mg/dl 03/14/21 03/14/21 03/14/21 Range/Units 06:11 06:11 08:10 RBC (4.7-6.1) M/uL Hgb (14.0-18.0) g/dL Hct (42-52) % MCV (80-100) fL MCH (25-34) pg RDW Std Deviation (36.4-46.3) fL RDW Coeff of Geovanni (11.5-14.5) % APTT 47.9 H* (21.0-31.0) Seconds BUN 62 H (7-18) mg/dl Creatinine 2.65 H (0.6-1.4) mg/dl BUN/Creatinine Ratio 23.5 H (10-20) Glucose 119 H (70-99) mg/dl POC Glucose 159 H (70-99) mg/dl Calcium 8.4 L (8.5-10.1) mg/dl 03/14/21 Range/Units 11:15 RBC (4.7-6.1) M/uL Hgb (14.0-18.0) g/dL Hct (42-52) % MCV (80-100) fL MCH (25-34) pg RDW Std Deviation (36.4-46.3) fL RDW Coeff of Geovanni (11.5-14.5) % APTT (21.0-31.0) Seconds BUN (7-18) mg/dl Creatinine (0.6-1.4) mg/dl BUN/Creatinine Ratio (10-20) Glucose (70-99) mg/dl POC Glucose 122 H (70-99) mg/dl Calcium (8.5-10.1) mg/dl
--- NOTE | 2021-03-14 12:53 | Cardiology Progress Note ---
Date of Service March 14, 2021 Assessment & Plan (1) NSTEMI (non-ST elevated myocardial infarction): (2) Acute decompensated heart failure: (3) Atrial fibrillation with RVR: (4) Embolism, arterial, leg, left: (5) Acute kidney injury superimposed on chronic kidney disease: Plan: Patient converted to sinus rhythm earlier today. Discontinue IV amiodarone with transition to oral formulation, 200 mg 3 times daily. Continue low-dose beta- kelle as blood pressure tolerates. Continue IV Lasix. Monitor daily weight, fluid balance, GFR, and electrolytes. BiPAP nightly as needed for shortness of breath. COVID-19 PCR negative. Status post bilateral thoracentesis performed 03/12/2021 with transudate of fluid. Hold amlodipine. Continue low-dose aspirin and IV heparin infusion. Further management of left lower extremity arterial embolism as per vascular moe momo. Admission and Anticipated Discharge Date Admission Date: March 11, 2021 Subjective Patient seen and examined the bedside. Denies chest pain or shortness of breath. Fluid balance -1300 cc. Telemetry reveals conversion to sinus rhythm at approximately 9 AM. Denies palpitations, lightheadedness, or dizziness. Borderline hypotensive. Reports numbness of his left foot. No pain or discomfort. I was able to Doppler a dorsalis pedis pulse at the bedside. Serum creatinine trending downward slightly. Review of Systems Review of Systems: All systems reviewed & are unremarkable except as noted in Subjective Physical Exam Constitutional: well developed and well nourished; not ill appearing Respiratory: normal respiratory effort; no respiratory distress and no labored breathing Auscultation: no crackles, no rales, no rhonchi and no wheezes Cardiovascular: Rate/Rhythm: + irregularly irregular Heart Sounds: normal S1 and normal S2; no murmur Vessels: dorsalis pedis pulses present (Left- sided pulses are not palpable); no JVD, no carotid bruit and + posterior tibial pulses abnormal (Left-sided pulses are not palpable) Extremities: + abnormal capillary refill (Decreased left lower extremity capillary refill, cool to touch) and no edema Gastrointestinal (Abdomen): Inspection/Auscultation: normal bowel sounds; abdomen not distended Percussion/Palpation: abdomen soft; abdomen nontender, no guarding and abdomen not rigid Neurologic: CN's II-XI intact bilaterally; + abnormal touch/pain/proprioception (Left lower extremity numbness) Psychiatric: A+Ox3, euthymic affect Results & Data ([facility]) Vital Signs (Past 12 Hours) Vital Signs Temp Pulse Pulse Resp BP Pulse Ox 03/14/21 11:36 36.4 C L 57 L 20 96/63 L 98 03/14/21 10:01 88 03/14/21 07:42 36.7 C 80 22 102/71 96 03/14/21 05:37 102/70 03/14/21 03:04 36.8 C 116 H 16 104/72 96 03/14/21 02:52 100 H
[2021-03-14] MEDS: AMIODARONE 200 MG TAB PO SCH ×2 (14:34→20:21)
--- NOTE | 2021-03-14 17:49 | Nephrology Progress Note ---
Date of Service March 14, 2021 Assessment & Plan (1) Acute decompensated heart failure: Plan: new onset LV dysfunction 25% EF w/ LAD WMA on IV amiodarone, adding BB and resuming heparin gtt later today -per cardiology; may need cardiac cath -cont strict I/O, daily STANDING wt, <2 gm daily Na diet ordered -continue 20 mg IV lasix tid for now (2) Acute kidney injury superimposed on chronic kidney disease: Plan: baseline creatinine 1.4-1.5; at baseline as recently as 03/01/21. chemistries acceptable; volume overload improving but w/ new onset systolic heart failure nonoliguric stage 1 ERICK on CKD3a; was 2.2 on presentation 03/11 and uptrended fast to peak at 2.9 03/12-, downtrending slightly today. urine sediment c/w ATN though interstitial nephritis on differential as well. ischemic ATN in setting of new onset LV function and a fib. -diuresis as above -minimize nephrotoxins best we can; all w/ understanding may need cardiac cath -daily bmp Admission and Anticipated Discharge Date Admission Date: March 11, 2021 Subjective no acute interval events. has been up to bathroom - tired but not extremely sob with this. no edema; still w/ del rosario Review of Systems Review of Systems: All systems reviewed & are unremarkable except as noted in Subjective Physical Exam Constitutional: well developed, well nourished, cooperative and + overweight; no acute distress Eyes: EOM intact bilaterally ENMT: Ears: no external ear abnormality Nose: no external nose abnormality Mouth: + dry oral mucous membranes Neck: no nuchal rigidity Respiratory: normal respiratory effort and able to speak in complete sentences Auscultation: + diminished lung sounds Cardiovascular: Rate/Rhythm: regular rate and regular rhythm Extremities: no edema Gastrointestinal (Abdomen): Inspection/Auscultation: normal bowel sounds Percussion/Palpation: abdomen soft; abdomen nontender Musculoskeletal: Extremities: strength 5/5 throughout Skin: no rashes, warm and dry Neurologic: carrillo, fluent speech, no tremor Psychiatric: Orientation: oriented x 3 Genitourinary: del rosario w/ ample light yellow urine Results & Data ([facility]) Vital Signs (Past 12 Hours) Vital Signs Temp Pulse Pulse Resp BP Pulse Ox 03/14/21 15:47 36.4 C L 66 18 103/67 96 10/03/21 15:19 66 03/14/21 11:36 36.4 C L 57 L 20 96/63 L 98 03/14/21 10:01 88 03/14/21 07:42 36.7 C 80 22 102/71 96 Laboratory Results 03/14/21 06:11 03/14/21 06:11
--- NOTE | 2021-03-14 19:19 | Electrocardiogram Report ---
Test Reason : Blood Pressure : / mmHG Vent. Rate : 071 BPM Atrial Rate : 071 BPM P-R Int : 172 ms QRS Dur : 146 ms QT Int : 478 ms P-R-T Axes : 065 044 188 degrees QTc Int : 519 ms Normal sinus rhythm Possible Left atrial enlargement Left bundle branch block Abnormal ECG When compared with ECG of 12-MAR-2021 06:45, Premature ventricular complexes are no longer Present Nonspecific T wave abnormality now evident in Anterior leads Confirmed by Aldo Sanchez ([id number]) on 03/14/2021 7:18:35 PM Referred By: REFERRED SELF Confirmed By:Aldo Sanchez
--- NOTE | 2021-03-14 19:41 | Electrocardiogram Report ---
Test Reason : Blood Pressure : / mmHG Vent. Rate : 109 BPM Atrial Rate : 098 BPM P-R Int : 000 ms QRS Dur : 162 ms QT Int : 360 ms P-R-T Axes : 000 046 221 degrees QTc Int : 484 ms Atrial fibrillation with rapid ventricular response Left bundle branch block Abnormal ECG When compared with ECG of 12-MAR-2021 14:00, (unconfirmed) Atrial fibrillation has replaced Sinus rhythm Vent. rate has increased BY 38 BPM Confirmed by Aldo Sanchez ([id number]) on 03/14/2021 7:41:08 PM Referred By: REFERRED SELF Confirmed By:Aldo Sanchez
--- NOTE | 2021-03-14 19:58 | Electrocardiogram Report ---
Test Reason : Blood Pressure : / mmHG Vent. Rate : 102 BPM Atrial Rate : 110 BPM P-R Int : 000 ms QRS Dur : 160 ms QT Int : 362 ms P-R-T Axes : 000 013 209 degrees QTc Int : 471 ms Atrial fibrillation with rapid ventricular response Left bundle branch block Abnormal ECG When compared with ECG of 13-MAR-2021 12:04, (unconfirmed) No significant change was found Confirmed by Aldo Sanchez ([id number]) on 03/14/2021 7:58:04 PM Referred By: REFERRED SELF Confirmed By:Aldo Sanchez
[2021-03-15] MEDS: LEVOTHYROXINE SODIUM 75 MCG TABLET PO SCH (05:48)
[2021-03-15] MEDS: FUROSEMIDE 20 MG in SYRINGE 0 ML IV SCH ×3 (05:48→23:17)
[2021-03-15] MEDS: HEPARIN SODIUM/DEXTROSE 25,000 UNITS/500 ML BAG IV SCH ×3 (05:48→23:18)
[2021-03-15 06:49] LABS: Hematocrit (blood only) 29.7 % (42-52); Hemoglobin 10.1 g/dL (14.0-18.0); Mean Corpuscular Hemoglobin 35.3 pg (25-34); Mean Corpuscular Volume 103.8 fL (80-100); Mean Platelet Volume 9.4 fL (7.4-10.4); Platelet Count 322 K/uL (130-400); RDW Coefficient of Variation 15.9 % (11.5-14.5); RDW Standard Deviation 59.1 fL (36.4-46.3); Red Blood Count 2.86 M/uL (4.7-6.1); White Blood Count 6.56 K/uL (4.8-10.8)
[2021-03-15 07:15] LABS: BUN Creatinine Ratio 24.5 (10-20); Calcium 8.6 mg/dl (8.5-10.1); Est GFR (African American) 27.8 ml/min; Potassium 3.1 mmol/L (3.5-5.1)
[2021-03-15 07:43] LABS: INR 1.1 (0.9-1.1); Partial Thromboplastin Ratio 1.7; Prothrombin Time 11.3 Seconds (9.0-12.0)
[2021-03-15] MEDS: INSULIN ASPART 100 UNITS/ML 3 ML PEN SC SCH ×5 (07:44→20:30)
[2021-03-15 07:49] LABS: Partial Thromboplastin Time 45.8 Seconds (21.0-31.0)
[2021-03-15] MEDS: ASPIRIN 81 MG ECTAB PO SCH (08:11)
[2021-03-15] MEDS: METOPROLOL TARTRATE 25 MG TAB PO SCH ×2 (08:12→20:32)
[2021-03-15] MEDS: AMIODARONE 200 MG TAB PO SCH ×3 (08:12→20:31)
[2021-03-15] MEDS ORDERED: POTASSIUM CHLORIDE CRTAB 20 MEQ TABCR PO STA (08:49)
--- NOTE | 2021-03-15 09:54 | Surgery Progress Note ---
Date of Service March 15, 2021 Assessment & Plan (1) Embolism, arterial, leg, left: Plan: Pt doing well post op. Do not recommend further vascular surgery at this point. Will see in office in 2 weeks for staple removal. Please call if needed. Admission and Anticipated Discharge Date Admission Date: March 11, 2021 Subjective 80 yo m POD #3 after open arterial thrombectomy of LLE, seen in follow up today. Pt states feeling well. Denies pain or numbness in LLE. Denies other new complaints. Review of Systems Review of Systems: negative aside from HPI Physical Exam Constitutional: WD/WN, vitals as above Cardiovascular: Vessels: femoral pulses present, posterior tibial pulses present (dopplerable BLE), dorsalis pedis pulses present (palpable +2 RLE, dopplerable LLE) and radial pulses present Extremities: + abnormal capillary refill (LLE delayed, RLE normal) and no edema Musculoskeletal: no cyanosis or clubbing, extremities motor strength 5/5 Skin: + incision (L groin C/D/I markus) Neurologic: moves all extremities (LLE warm to toes, toes cool, but pink) and awake; no focal motor deficits and not confused Results & Data ([facility]) Vital Signs (Past 12 Hours) Vital Signs Temp Pulse Pulse Resp BP Pulse Ox 03/15/21 08:13 68 03/15/21 08:00 61 03/15/21 07:47 36.9 C 59 L 18 105/70 96 03/15/21 06:27 36.7 C 58 L 16 110/69 95 03/15/21 03:34 36.7 C 64 17 109/73 96 03/14/21 23:12 64 03/14/21 22:47 36.8 C 68 18 107/64 99
--- NOTE | 2021-03-15 10:13 | Cardiology Progress Note ---
Date of Service March 15, 2021 Assessment & Plan (1) NSTEMI (non-ST elevated myocardial infarction): (2) Acute decompensated heart failure: (3) Atrial fibrillation with RVR: (4) Embolism, arterial, leg, left: (5) Acute kidney injury superimposed on chronic kidney disease: Plan: Patient maintaining NSR. Continue oral amiodarone 200 mg 3 times daily for now, likely reduce dose to 200 mg BID on discharge. Continue low-dose beta-kelle as blood pressure tolerates. Volume status improving. Continue IV Lasix. Replace potassium. Creatinine trending down. Status post bilateral thoracentesis performed 03/12/2021 with transudate of fluid. Patient was able to ambulate in the hallways this morning without exertional chest pain or SOB. Amlodipine on hold due to hypotension Continue low-dose aspirin and IV heparin infusion. start Coumadin today with goal INR 2-3. Heparin to be discontinued when INR > 2. Further management of left lower extremity arterial embolism as per vascular surgery. No further intervention required per noes this morning. Will f/u in their office in 2 weeks for stable removal. Case discussed with Dr. White. Will follow Admission and Anticipated Discharge Date Admission Date: March 11, 2021 Supervising Physician Co-Signing Physician Notes Patient seen and examined at the bedside. Feeling better today. Ambulating in the gastelum without significant dyspnea or chest discomfort. Telemetry reveals sinus rhythm. Tolerating amiodarone and other medications. PE: VSS. Gen: NAD, AAOx3. Heart: Regular rhythm, normal S1-S2, no murmur. Lungs: Clear bilateral, no rales rhonchi or wheeze. Extremities: Left foot is cool to touch. Doppler pulse reported. No palpable DP or PT pulses. No skin breakdown or ulceration. Agree with above PA-C history, physical exam, assessment and plan. Initiate oral anticoagulation with warfarin. Goal INR 2.0-3.0. Continue IV Lasix. Consider de-escalation of diuretic therapy in a.m. pending evaluation. Follow daily weight, GFR, electrolytes, and fluid balance. Replace electrolytes as indicated. Subjective Patient was ambulating in hallways with PT upon arrival. He felt weak compared to his baseline, but otherwise ok. Denied exertional chest pain or SOB. No foot pain. No dizziness or lightheadedness. No palpitations. Review of Systems Review of Systems: All systems reviewed & are unremarkable except as noted in HPI & below Physical Exam Constitutional: WD/WN, vitals as above Eyes: PERRL, conjunctivae normal, anicteric sclerae ENMT: external ear and nose normal, oropharynx normal Neck: trachea midline, no thyromegaly Respiratory: normal respiratory effort, lungs clear to auscultation Cardiovascular: RRR, no murmur, no edema Vessels: no JVD left toes cool to touch. Gastrointestinal (Abdomen): normal bowel sounds, soft, nontender, no hepatosplenomegaly Musculoskeletal: no cyanosis or clubbing, extremities motor strength 5/5 Skin: no rashes, warm and dry Neurologic: PERRL, EOMI, accommodation nl, no face palsy, no dysarthria Psychiatric: A+Ox3, euthymic affect Results & Data ([facility]) Vital Signs (Past 12 Hours) Vital Signs Temp Pulse Pulse Resp BP Pulse Ox 03/15/21 08:13 68 03/15/21 08:00 61 03/15/21 07:47 36.9 C 59 L 18 105/70 96 03/15/21 06:27 36.7 C 58 L 16 110/69 95 03/15/21 03:34 36.7 C 64 17 109/73 96 03/14/21 23:12 64 03/14/21 22:47 36.8 C 68 18 107/64 99 Laboratory Results 03/15/21 03/15/21 03/15/21 Range/Units 07:36 06:26 06:26 WBC (4.8-10.8) K/uL RBC (4.7-6.1) M/uL Hgb (14.0-18.0) g/dL Hct (42-52) % MCV (80-100) fL MCH (25-34) pg MCHC (32-36) g/dL RDW Std Deviation (36.4-46.3) fL RDW Coeff of Geovanni (11.5-14.5) % Plt Count (130-400) K/uL MPV (7.4-10.4) fL PT 11.3 (9.0-12.0) Seconds INR 1.1 (0.9-1.1) APTT 45.8 H* (21.0-31.0) Seconds PTT Ratio 1.7 Sodium 140 (136-145) mmol/L Potassium 3.1 L D (3.5-5.1) mmol/L Chloride 103 (98-107) mmol/L Carbon Dioxide 27 (21-32) mmol/L Anion Gap 10.0 (3-11) BUN 60 H (7-18) mg/dl Creatinine 2.46 H (0.6-1.4) mg/dl Est Cr Clr Drug Dosing 25.0 ml/min Est GFR ( Amer) 27.8 ml/min Est GFR (Non-Af Amer) 24.0 ml/min BUN/Creatinine Ratio 24.5 H (10-20) Glucose 115 H (70-99) mg/dl POC Glucose 114 H (70-99) mg/dl Calcium 8.6 (8.5-10.1) mg/dl 03/15/21 03/14/21 03/14/21 Range/Units 06:26 20:02 16:08 WBC 6.56 (4.8-10.8) K/uL RBC 2.86 L (4.7-6.1) M/uL Hgb 10.1 L (14.0-18.0) g/dL Hct 29.7 L (42-52) % MCV 103.8 H (80-100) fL MCH 35.3 H (25-34) pg MCHC 34.0 (32-36) g/dL RDW Std Deviation 59.1 H (36.4-46.3) fL RDW Coeff of Geovanni 15.9 H (11.5-14.5) % Plt Count 322 (130-400) K/uL MPV 9.4 (7.4-10.4) fL PT (9.0-12.0) Seconds INR (0.9-1.1) APTT (21.0-31.0) Seconds PTT Ratio Sodium (136-145) mmol/L Potassium (3.5-5.1) mmol/L Chloride (98-107) mmol/L Carbon Dioxide (21-32) mmol/L Anion Gap (3-11) BUN (7-18) mg/dl Creatinine (0.6-1.4) mg/dl Est Cr Clr Drug Dosing ml/min Est GFR ( Amer) ml/min Est GFR (Non-Af Amer) ml/min BUN/Creatinine Ratio (10-20) Glucose (70-99) mg/dl POC Glucose 114 H 129 H (70-99) mg/dl Calcium (8.5-10.1) mg/dl 03/14/21 Range/Units 11:15 WBC (4.8-10.8) K/uL RBC (4.7-6.1) M/uL Hgb (14.0-18.0) g/dL Hct (42-52) % MCV (80-100) fL MCH (25-34) pg MCHC (32-36) g/dL RDW Std Deviation (36.4-46.3) fL RDW Coeff of Geovanni (11.5-14.5) % Plt Count (130-400) K/uL MPV (7.4-10.4) fL PT (9.0-12.0) Seconds INR (0.9-1.1) APTT (21.0-31.0) Seconds PTT Ratio Sodium (136-145) mmol/L Potassium (3.5-5.1) mmol/L Chloride (98-107) mmol/L Carbon Dioxide (21-32) mmol/L Anion Gap (3-11) BUN (7-18) mg/dl Creatinine (0.6-1.4) mg/dl Est Cr Clr Drug Dosing ml/min Est GFR ( Amer) ml/min Est GFR (Non-Af Amer) ml/min BUN/Creatinine Ratio (10-20) Glucose (70-99) mg/dl POC Glucose 122 H (70-99) mg/dl Calcium (8.5-10.1) mg/dl Diagnostic Findings Telemetry reviewed - NSR, no recurrent atrial fibrillation overnight Medications Administered Current Inpatient Medications Acetaminophen (Acetaminophen 325 Mg Tab) 650 mg PO Q4H PRN PRN Reason: Pain or Fever Stop: 04/10/21 07:30 Amiodarone HCl (Amiodarone 200 Mg Tab) 200 mg PO TID [facility] Stop: 04/13/21 13:59 Last Admin: 03/15/21 08:12 Dose: 200 mg Documented by: Amlodipine Besylate (Amlodipine Besylate 5 Mg Tab) 2.5 mg PO DAILY [facility] Stop: 04/10/21 08:59 Last Admin: 03/12/21 08:26 Dose: 2.5 mg Documented by: Aspirin (Aspirin 81 Mg Ectab) 81 mg PO QAM [facility] Stop: 04/11/21 08:59 Last Admin: 03/15/21 08:11 Dose: 81 mg Documented by: Dextrose (Dextrose 50% 50 Ml Syringe) 25 - 50 ml IV UD PRN; Protocol PRN Reason: Hypoglycemia Protocol Stop: 04/10/21 21:30 Glucagon (Glucagon For Inj 1 Mg Vial) 1 mg SQ UD PRN; Protocol PRN Reason: Hypoglycemia Protocol Stop: 04/10/21 21:30 Glucose (Glucose 10 Tabs/Tube) 4 - 8 tabs PO UD PRN; Protocol PRN Reason: Hypoglycemia Protocol Stop: 04/10/21 21:30 Glucose (Glucose 40% Gel 15 Gm Tube) 15 - 30 gm PO UD PRN; Protocol PRN Reason: Hypoglycemia Protocol Stop: 04/10/21 21:30 Heparin Sodium/Dextrose (Heparin Sodium/Dextrose) 25,000 units in 500 mls @ 27 mls/hr IV .[id number] [facility]; Protocol Stop: 04/10/21 03:59 Last Titration: 03/15/21 07:51 Dose: 1,350 units/hr, 27 mls/hr Documented by: Furosemide 20 mg/ Syringe 2 mls @ 4 mls/min IV Q8 [facility] Stop: 04/11/21 15:59 Last Admin: 03/15/21 05:48 Dose: 4 mls/min Documented by: Insulin Aspart (Insulin Aspart 100 Units/Ml 3 Ml Pen) 0 units SC ACHS [facility] Stop: 04/11/21 07:29 Last Admin: 03/15/21 07:44 Dose: Not Given Documented by: Levothyroxine Sodium (Levothyroxine Sodium 75 Mcg Tablet) 75 mcg PO DAILYBB [facility] Stop: 04/11/21 06:29 Last Admin: 03/15/21 05:48 Dose: 75 mcg Documented by: Metoprolol Tartrate (Metoprolol Tartrate 25 Mg Tab) 12.5 mg PO BID [facility] Stop: 04/12/21 20:59 Last Admin: 03/15/21 08:12 Dose: 12.5 mg Documented by: Miscellaneous (Carbohydrates For Hypoglycemia ) 15 - 30 gm PO UD PRN PRN Reason: Hypoglycemia Protocol Stop: 04/10/21 21:30 Oxycodone/Acetaminophen (Oxycodone/Acetaminophen 5mg/325mg Tab) 1 - 2 tab PO Q4H PRN PRN Reason: Moderate Pain Stop: 03/26/21 19:15 Last Admin: 03/13/21 09:30 Dose: 1 tab Documented by: Polyethylene Glycol (Polyethylene (Miralax) 17 Gm Pack) 17 gm PO DAILY PRN PRN Reason: Constipation Stop: 04/10/21 07:30
--- NOTE | 2021-03-15 10:24 | Nephrology Progress Note ---
Date of Service March 15, 2021 Assessment & Plan Admission and Anticipated Discharge Date Admission Date: March 11, 2021 Subjective Assessment & Plan (1) Acute decompensated heart failure: new onset LV dysfunction 25% EF w/ LAD WMA -per cardiology; may need cardiac cath -cont strict I/O, daily STANDING wt, <2 gm daily Na diet ordered -continue 20 mg IV lasix tid for now --3500 ml urine yesterday (2) Acute kidney injury superimposed on chronic kidney disease: Plan: baseline creatinine 1.4-1.5; at baseline as recently as 03/01/21. chemistries acceptable; volume overload improving but w/ new onset systolic heart failure nonoliguric stage 1 ERICK on CKD3a; was 2.2 on presentation 03/11 and uptrended fast to peak at 2.9 03/12-, downtrending since then and today is 2.45 with excellent urine output. urine sediment c/w ATNl. ischemic ATN in setting of new onset LV function and a fib. -diuresis as above--making 3500 ml urine so current diuretics dose seems adequate. -minimize nephrotoxins best we can; all w/ understanding may need cardiac cath -daily bmp --Electrolytes Stable--replace as needed Subjective no acute interval events. tired but not extremely sob with this. no edema; still w/ del rosario--3500 ml urine yesterday Review of Systems Review of Systems: All systems reviewed & are unremarkable except as noted in Subjective Physical Exam Constitutional: well developed, well nourished, cooperative and + overweight; no acute distress Eyes: EOM intact bilaterally ENMT: Ears: no external ear abnormality Nose: no external nose abnormality Mouth: + dry oral mucous membranes Neck: no nuchal rigidity Respiratory: normal respiratory effort and able to speak in complete sentences Auscultation: + diminished lung sounds Cardiovascular: Rate/Rhythm: regular rate and regular rhythm Extremities: no edema Gastrointestinal (Abdomen): Inspection/Auscultation: normal bowel sounds Percussion/Palpation: abdomen soft; abdomen nontender Musculoskeletal: Extremities: strength 5/5 throughout Skin: no rashes, warm and dry Neurologic: carrillo, fluent speech, no tremor Psychiatric: Orientation: oriented x 3 Genitourinary: del rosario w/ ample light yellow urine Results & Data ([place]) Vital Signs (Past 12 Hours) Vital Signs Temp Pulse Pulse Resp BP Pulse Ox 03/15/21 08:13 68 03/15/21 08:00 61 03/15/21 07:47 36.9 C 59 L 18 105/70 96 03/15/21 06:27 36.7 C 58 L 16 110/69 95 03/15/21 03:34 36.7 C 64 17 109/73 96 03/14/21 23:12 64 03/14/21 22:47 36.8 C 68 18 107/64 99
--- NOTE | 2021-03-15 11:14 | Hospitalist Progress Note ---
Date of Service March 15, 2021 Assessment & Plan (1) Acute respiratory failure: (2) Bilateral pleural effusion: (3) NSTEMI (non-ST elevated myocardial infarction): (4) Acute decompensated heart failure: Plan: 80yo M with a PMH CLL, low-grade myelodysplastic syndrome, HTN, moderate aortic stenosis, HTN, LBBB, CKD III and other medical problems listed below who presents with fevers, chills and shortness of breath x 1 week. In the setting of decompensated heart failure, bilateral pleural effusions, new onset A fib with RVR Was initially requiring bipap then transitioned to NC TTE from 03/11/21 with new onset severe left ventricular systolic dysfunction, ej ection fraction 20-25% CXR with cardiomegaly with pulmonary edema and layering pleural effusions Evaluated by Cardiology Has been on heparin drip Initial troponin 1.4 -> 2.2 ->9.5 ->10.7 -> 12.1-->7 Started on aspirin and metoprolol Bilateral pleural effusions R>L on imaging Had bilateral thoracentesis by pulmonary with removal of 1550 mls of fluid from the left and 1850 mls of fluid from the right on 03/12/21 Patient feeling better. Respiratory failure has resolved. Has been weaned off oxygen. Currently on room air. (5) Atrial fibrillation with RVR: Plan: Patient has been having A. fib with RVR with occasional conversion to sinus rhythm. Was initially on amiodarone drip. Now transitioned to p.o. amiodarone Continue Lopressor Cardiology on board (6) Embolism, arterial, leg, left: Plan: Had a thromboembolic event on 03/12/2021 with acute onset left leg paresthesia. In the setting of NSTEMI, new acute systolic heart failure with EF of 20 to 25% A. fib with RVR. Had thrombectomy by vascular surgeon on 03/12/21 Based on vascular surgeons report, likely still has residual thrombus that could not be addressed. We will continue medical management with anticoagulation and antiplatelet. Currently on heparin drip. Start Coumadin and monitor INR for goal of 2-3 (7) Acute kidney injury superimposed on chronic kidney disease: Plan: Initial Cr 2.02 (baseline ~ 1.5). In setting of decompensated heart failure, NSTEMI Renal function worsening despite diuresis - Cr 2.02 -> 2.73 -> 2.89 ->2.97->2.86-->>2.65->>2.46 Renal ultrasound without hydronephrosis Makeup Instructor recommendation appreciated Renal function continues improving. Continue to monitor renal function Good urine output Avoid nephrotoxins (8) Leukocytosis: Plan: Leukocytosis resolved Lactate initially 3.9 --> 1.8, procalcitonin initially wnl --> 1.45 CXR also showing right perihilar and right lung base predominant airspace opacities. Superimposed pneumonia would be difficult to exclude UA 1+ leuk esterase, no urine bacteria Was initially started on empiric Zosyn, transitioned to Rocephin Blood and urine cultures negative. Antibiotics were discontinued (9) HTN (hypertension): Plan: BP running low Amlodipine on hold. D/c on discharge (10) Aortic stenosis: Plan: Known moderate aortic stenosis (11) CLL (chronic lymphocytic leukemia): Plan: Previously received oncology care in [place], received treatment once for this (immunotherapy) in 2012 and remains in remission Now following with Dr. Armenta (12) Anemia in CKD (chronic kidney disease): Plan: Hgb 11 (baseline) on admission. Stable in 9-10s (13) HAWA (obstructive sleep apnea): Plan: CPAP HS DVT Ppx: IV heparin Code status: FULL PCP: Niraj Dispo: PCU PT/OT eval noted Admission and Anticipated Discharge Date Admission Date: March 11, 2021 Subjective 80-year-old man with history of CLL, low-grade MDS who presented with worsening shortness of breath and dyspnea on exertion, subjective low-grade fever at home over the past 5days to 1 week Found to have NSTEMI, acute systolic heart failure and A. fib with RVR. Was on heparin drip. Patient also had pleural effusion required thoracentesis on 03/12/21 by pulmonary. Also had ERICK on CKD3 with worsening renal function. Nephrology was consulted Patient developed acute onset Left foot paresthesia on 03/12/2021. Noted to have left LE thromboembolic event. Was evaluated by vascular surgeon and taken for thrombectomy. Dr. Crawford was able to remove a small clot but the catheter could not be passed further down. Patient seen and examined Reports no pain in left foot. States paresthesia continues to improve No Shortness of breath at rest. Has occasional cough No chest pain No dizziness Review of Systems Constitutional: no fever and no chills Ear, Nose, Mouth, Throat: no problem reported Respiratory: Shortness of breath resolved. Occasional cough. Cardiovascular: Additional Comments: No chest pain. No shortness of breath. No palpitations Gastrointestinal: no abdominal pain, no nausea and no vomiting Musculoskeletal: Left leg paresthesia Neurologic: + paresthesia; no headache(s) and no confusion Psychiatric: no depression and no anxiety Physical Exam Constitutional: + well hydrated; no acute distress Eyes: PERRL, conjunctivae normal, anicteric sclerae ENMT: external ear and nose normal, oropharynx normal Respiratory: normal respiratory effort, lungs clear to auscultation normal respiratory effort; no respiratory distress Gastrointestinal (Abdomen): normal bowel sounds, soft, nontender, no hepatosplenomegaly Musculoskeletal: Left foot is warmer today. Toes cool Left DP and PT pulses detectable by dopplers but faint Neurologic: PERRL, EOMI, accommodation nl, no face palsy, no dysarthria Psychiatric: A+Ox3, euthymic affect Results & Data Results & Data ([facility]) Vital Signs (Past 12 Hours) Vital Signs Temp Pulse Pulse Resp BP Pulse Ox 03/15/21 08:13 68 03/15/21 08:00 61 03/15/21 07:47 36.9 C 59 L 18 105/70 96 03/15/21 06:27 36.7 C 58 L 16 110/69 95 03/15/21 03:34 36.7 C 64 17 109/73 96 Laboratory Results Abnormal lab results 03/14/21 03/14/21 03/15/21 Range/Units 16:08 20:02 06:26 RBC 2.86 L (4.7-6.1) M/uL Hgb 10.1 L (14.0-18.0) g/dL Hct 29.7 L (42-52) % MCV 103.8 H (80-100) fL MCH 35.3 H (25-34) pg RDW Std Deviation 59.1 H (36.4-46.3) fL RDW Coeff of Geovanni 15.9 H (11.5-14.5) % APTT (21.0-31.0) Seconds Potassium (3.5-5.1) mmol/L BUN (7-18) mg/dl Creatinine (0.6-1.4) mg/dl BUN/Creatinine Ratio (-20) Glucose (70-99) mg/dl POC Glucose 129 H 114 H (70-99) mg/dl 03/15/21 03/15/21 03/15/21 Range/Units 06:26 06:26 07:36 RBC (4.7-6.1) M/uL Hgb (14.0-18.0) g/dL Hct (42-52) % MCV (80-100) fL MCH (25-34) pg RDW Std Deviation (36.4-46.3) fL RDW Coeff of Geovanni (11.5-14.5) % APTT 45.8 H* (21.0-31.0) Seconds Potassium 3.1 L D (3.5-5.1) mmol/L BUN 60 H (7-18) mg/dl Creatinine 2.46 H (0.6-1.4) mg/dl BUN/Creatinine Ratio 24.5 H (-20) Glucose 115 H (70-99) mg/dl POC Glucose 114 H (70-99) mg/dl 03/15/21 03/15/21 03/15/21 Range/Units 10:57 11:56 13:54 RBC (4.7-6.1) M/uL Hgb (14.0-18.0) g/dL Hct (42-52) % MCV (80-100) fL MCH (25-34) pg RDW Std Deviation (36.4-46.3) fL RDW Coeff of Geovanni (11.5-14.5) % APTT 46.8 H* (21.0-31.0) Seconds Potassium (3.5-5.1) mmol/L BUN (7-18) mg/dl Creatinine (0.6-1.4) mg/dl BUN/Creatinine Ratio (-20) Glucose (70-99) mg/dl POC Glucose 240 H 127 H (70-99) mg/dl
[2021-03-15 15:20] LABS: Partial Thromboplastin Ratio 1.8
[2021-03-15 15:23] LABS: Partial Thromboplastin Time 46.8 Seconds (21.0-31.0)
[2021-03-15] MEDS: WARFARIN SOD 5 MG TAB PO SCH (16:50)
[2021-03-16] MEDS: LEVOTHYROXINE SODIUM 75 MCG TABLET PO SCH (05:32)
[2021-03-16] MEDS: FUROSEMIDE 20 MG in SYRINGE 0 ML IV SCH ×3 (06:03→20:51)
[2021-03-16 06:14] LABS: Hematocrit (blood only) 29.8 % (42-52); Mean Corpuscular Hemoglobin 35.2 pg (25-34); Mean Corpuscular Hgb Conc 33.6 g/dL (32-36); Mean Corpuscular Volume 104.9 fL (80-100); Mean Platelet Volume 9.6 fL (7.4-10.4); Platelet Count 338 K/uL (130-400); RDW Standard Deviation 59.9 fL (36.4-46.3); Red Blood Count 2.84 M/uL (4.7-6.1); White Blood Count 8.29 K/uL (4.8-10.8)
[2021-03-16 06:34] LABS: INR 1.2 (0.9-1.1); Partial Thromboplastin Ratio 1.8; Prothrombin Time 11.6 Seconds (9.0-12.0)
[2021-03-16 06:39] LABS: Partial Thromboplastin Time 48.1 Seconds (21.0-31.0)
[2021-03-16 07:12] LABS: BUN Creatinine Ratio 25.9 (10-20); Calcium 8.7 mg/dl (8.5-10.1); Creatinine Clr Calc Pharmacy 26.7 ml/min; Est GFR (African American) 29.9 ml/min; Est GFR (Non-African American) 25.8 ml/min; Potassium 3.6 mmol/L (3.5-5.1)
[2021-03-16] MEDS: ASPIRIN 81 MG ECTAB PO SCH (08:09)
[2021-03-16] MEDS: METOPROLOL TARTRATE 25 MG TAB PO SCH ×2 (08:10→20:52)
[2021-03-16] MEDS: AMIODARONE 200 MG TAB PO SCH ×3 (08:11→20:52)
[2021-03-16] MEDS: INSULIN ASPART 100 UNITS/ML 3 ML PEN SC SCH ×4 (08:15→20:51)
--- NOTE | 2021-03-16 10:25 | Cardiology Progress Note ---
Date of Service March 16, 2021 Assessment & Plan (1) NSTEMI (non-ST elevated myocardial infarction): (2) Acute decompensated heart failure: (3) Atrial fibrillation with RVR: (4) Embolism, arterial, leg, left: (5) Acute kidney injury superimposed on chronic kidney disease: Plan: Patient maintaining NSR. Continue oral amiodarone 200 mg 3 times daily for now, likely reduce dose to 200 mg BID on discharge. EKG ordered now that he is back in NSR to reassess QT/QTc with amiodarone Continue low-dose beta-kelle as blood pressure tolerates. Volume status improving. Creatinine continues to trend down with low dose IV lasix. Continue IV Lasix for now. Replace potassium. Status post bilateral thoracentesis performed 03/12/2021 with transudate of fluid. Amlodipine on hold due to hypotension Continue low-dose aspirin and IV heparin infusion until INR 2-3. Continue Coumadin. INR 1.2 today Further management of left lower extremity arterial embolism as per vascular surgery. No further intervention required per noes this morning. Will f/u in their office in 2 weeks for staple removal. Case discussed with Dr. White. Will follow Admission and Anticipated Discharge Date Admission Date: March 11, 2021 Supervising Physician Co-Signing Physician Notes Patient seen and examined at the bedside. Feeling better today. Creatinine trending downward. Ambulating to the bathroom with mild left foot discomfort. Denies chest pain or shortness of breath. Fluid balance -1.5 L. PE: VSS. Gen: NAD, AAOx3. Heart: Regular rhythm, normal S1-S2, no murmur. Lungs: Clear bilateral, no rales rhonchi or wheeze. Extremities: Left foot is cool to touch. Doppler pulse reported. No palpable DP or PT pulses. No skin breakdown or ulceration. Agree with above PA-C history, physical exam, assessment and plan. Dose warfarin for goal INR 2.0-3.0. Continue IV Lasix. Consider de-escalation of diuretic therapy in next 24-48 hours pending evaluation. Nephrology input appreciated. Follow daily weight, GFR, electrolytes, and fluid balance. Replace electrolytes as indicated. Subjective Patient resting in chair comfortably. Able to ambulate in hallways without exertional chest pain or SOB. He reports mild fatigue after standing and "washing up" this morning. Noted mild left foot pain with extended standing, but now improved at rest. No orthopnea, PND or edema noted. Review of Systems Review of Systems: Complete Review of Systems is as stated above, negative, or noncontributory Physical Exam Constitutional: WD/WN, vitals as above Eyes: PERRL, conjunctivae normal, anicteric sclerae ENMT: external ear and nose normal, oropharynx normal Neck: trachea midline, no thyromegaly Respiratory: normal respiratory effort, lungs clear to auscultation Cardiovascular: Rate/Rhythm: regular rate and regular rhythm Heart Sounds: + murmur (II/ systolic murmur Left and Right SB) Vessels: no JVD Extremities: + abnormal capillary refill (left foot, warm foot, cold toes) and no edema Gastrointestinal (Abdomen): normal bowel sounds, soft, nontender, no hepatosplenomegaly Skin: no rashes, warm and dry Neurologic: PERRL, EOMI, accommodation nl, no face palsy, no dysarthria Psychiatric: A+Ox3, euthymic affect Results & Data ([facility]) Vital Signs (Past 12 Hours) Vital Signs Temp Pulse Pulse Resp BP Pulse Ox 03/16/21 07:57 64 03/16/21 07:54 37.0 C 64 19 100/63 94 03/16/21 04:10 36.7 C 67 16 99/59 L 96 03/15/21 23:12 36.8 C 69 18 114/72 95 03/15/21 23:00 64 Laboratory Results 03/16/21 03/16/21 03/16/21 Range/Units 07:05 05:38 05:38 WBC 8.29 (4.8-10.8) K/uL RBC 2.84 L (4.7-6.1) M/uL Hgb 10.0 L (14.0-18.0) g/dL Hct 29.8 L (42-52) % MCV 104.9 H (80-100) fL MCH 35.2 H (25-34) pg MCHC 33.6 (32-36) g/dL RDW Std Deviation 59.9 H (36.4-46.3) fL RDW Coeff of Geovanni 16.0 H (11.5-14.5) % Plt Count 338 (130-400) K/uL MPV 9.6 (7.4-10.4) fL PT (9.0-12.0) Seconds INR (0.9-1.1) APTT (21.0-31.0) Seconds PTT Ratio Sodium 138 (136-145) mmol/L Potassium 3.6 D (3.5-5.1) mmol/L Chloride 104 (98-107) mmol/L Carbon Dioxide 26 (21-32) mmol/L Anion Gap 8.0 (3-11) BUN 60 H (7-18) mg/dl Creatinine 2.32 H (0.6-1.4) mg/dl Est Cr Clr Drug Dosing 26.7 ml/min Est GFR ( Amer) 29.9 ml/min Est GFR (Non-Af Amer) 25.8 ml/min BUN/Creatinine Ratio 25.9 H (10-20) Glucose 109 H (70-99) mg/dl POC Glucose 115 H (70-99) mg/dl Calcium 8.7 (8.5-10.1) mg/dl 03/16/21 03/15/21 03/15/21 Range/Units 05:38 20:14 16:15 WBC (4.8-10.8) K/uL RBC (4.7-6.1) M/uL Hgb (14.0-18.0) g/dL Hct (42-52) % MCV (80-100) fL MCH (25-34) pg MCHC (32-36) g/dL RDW Std Deviation (36.4-46.3) fL RDW Coeff of Geovanni (11.5-14.5) % Plt Count (130-400) K/uL MPV (7.4-10.4) fL PT 11.6 (9.0-12.0) Seconds INR 1.2 H (0.9-1.1) APTT 48.1 H* (21.0-31.0) Seconds PTT Ratio 1.8 Sodium (136-145) mmol/L Potassium (3.5-5.1) mmol/L Chloride (98-107) mmol/L Carbon Dioxide (21-32) mmol/L Anion Gap (3-11) BUN (7-18) mg/dl Creatinine (0.6-1.4) mg/dl Est Cr Clr Drug Dosing ml/min Est GFR ( Amer) ml/min Est GFR (Non-Af Amer) ml/min BUN/Creatinine Ratio (10-20) Glucose (70-99) mg/dl POC Glucose 133 H 128 H (70-99) mg/dl Calcium (8.5-10.1) mg/dl 03/15/21 03/15/21 03/15/21 Range/Units 13:54 11:56 10:57 WBC (4.8-10.8) K/uL RBC (4.7-6.1) M/uL Hgb (14.0-18.0) g/dL Hct (42-52) % MCV (80-100) fL MCH (25-34) pg MCHC (32-36) g/dL RDW Std Deviation (36.4-46.3) fL RDW Coeff of Geovanni (11.5-14.5) % Plt Count (130-400) K/uL MPV (7.4-10.4) fL PT (9.0-12.0) Seconds INR (0.9-1.1) APTT 46.8 H* (21.0-31.0) Seconds PTT Ratio 1.8 Sodium (136-145) mmol/L Potassium (3.5-5.1) mmol/L Chloride (98-107) mmol/L Carbon Dioxide (21-32) mmol/L Anion Gap (3-11) BUN (7-18) mg/dl Creatinine (0.6-1.4) mg/dl Est Cr Clr Drug Dosing ml/min Est GFR ( Amer) ml/min Est GFR (Non-Af Amer) ml/min BUN/Creatinine Ratio (10-20) Glucose (70-99) mg/dl POC Glucose 127 H 240 H (70-99) mg/dl Calcium (8.5-10.1) mg/dl Diagnostic Findings Telem reviewed - NSR with conduction delay, frequent PVC's. No recurrent atrial fibrillation. Medications Administered Current Inpatient Medications Acetaminophen (Acetaminophen 325 Mg Tab) 650 mg PO Q4H PRN PRN Reason: Pain or Fever Stop: 04/10/21 07:30 Amiodarone HCl (Amiodarone 200 Mg Tab) 200 mg PO TID ABAD Stop: 04/13/21 13:59 Last Admin: 03/16/21 08:11 Dose: 200 mg Documented by: Amlodipine Besylate (Amlodipine Besylate 5 Mg Tab) 2.5 mg PO DAILY ABAD Stop: 04/10/21 08:59 Last Admin: 03/12/21 08:26 Dose: 2.5 mg Documented by: Aspirin (Aspirin 81 Mg Ectab) 81 mg PO QAM ABAD Stop: 04/11/21 08:59 Last Admin: 03/16/21 08:09 Dose: 81 mg Documented by: Dextrose (Dextrose 50% 50 Ml Syringe) 25 - 50 ml IV UD PRN; Protocol PRN Reason: Hypoglycemia Protocol Stop: 04/10/21 21:30 Glucagon (Glucagon For Inj 1 Mg Vial) 1 mg SQ UD PRN; Protocol PRN Reason: Hypoglycemia Protocol Stop: 04/10/21 21:30 Glucose (Glucose 10 Tabs/Tube) 4 - 8 tabs PO UD PRN; Protocol PRN Reason: Hypoglycemia Protocol Stop: 04/10/21 21:30 Glucose (Glucose 40% Gel 15 Gm Tube) 15 - 30 gm PO UD PRN; Protocol PRN Reason: Hypoglycemia Protocol Stop: 04/10/21 21:30 Heparin Sodium/Dextrose (Heparin Sodium/Dextrose) 25,000 units in 500 mls @ 27 mls/hr IV .[id number] ABAD; Protocol Stop: 04/10/21 03:59 Last Titration: 03/16/21 06:59 Dose: 1,350 units/hr, 27 mls/hr Documented by: Furosemide 20 mg/ Syringe 2 mls @ 4 mls/min IV Q8 ABAD Stop: 04/11/21 15:59 Last Admin: 03/16/21 06:03 Dose: 4 mls/min Documented by: Insulin Aspart (Insulin Aspart 100 Units/Ml 3 Ml Pen) 0 units SC ACHS ABAD Stop: 04/11/21 07:29 Last Admin: 03/16/21 08:15 Dose: Not Given Documented by: Levothyroxine Sodium (Levothyroxine Sodium 75 Mcg Tablet) 75 mcg PO DAILYBB ABAD Stop: 04/11/21 06:29 Last Admin: 03/16/21 05:32 Dose: 75 mcg Documented by: Metoprolol Tartrate (Metoprolol Tartrate 25 Mg Tab) 12.5 mg PO BID [facility] Stop: 04/12/21 20:59 Last Admin: 03/16/21 08:10 Dose: 12.5 mg Documented by: Miscellaneous (Carbohydrates For Hypoglycemia ) 15 - 30 gm PO UD PRN PRN Reason: Hypoglycemia Protocol Stop: 04/10/21 21:30 Oxycodone/Acetaminophen (Oxycodone/Acetaminophen 5mg/325mg Tab) 1 - 2 tab PO Q4H PRN PRN Reason: Moderate Pain Stop: 03/26/21 19:15 Last Admin: 03/13/21 09:30 Dose: 1 tab Documented by: Polyethylene Glycol (Polyethylene (Miralax) 17 Gm Pack) 17 gm PO DAILY PRN PRN Reason: Constipation Stop: 04/10/21 07:30 Warfarin Sodium (Warfarin Sod 5 Mg Tab) 5 mg PO DAILY@1600 ABAD Stop: 04/14/21 15:59 Last Admin: 03/15/21 16:50 Dose: 5 mg Documented by:
--- NOTE | 2021-03-16 13:06 | Hospitalist Progress Note ---
Date of Service March 16, 2021 Assessment & Plan (1) Acute respiratory failure: (2) Bilateral pleural effusion: (3) NSTEMI (non-ST elevated myocardial infarction): (4) Acute decompensated heart failure: Plan: 80yo M with a PMH CLL, low-grade myelodysplastic syndrome, HTN, moderate aortic stenosis, HTN, LBBB, CKD III and other medical problems listed below who presents with fevers, chills and shortness of breath x 1 week. In the setting of decompensated heart failure, bilateral pleural effusions, new onset A fib with RVR Was initially requiring bipap then transitioned to NC TTE from 03/11/21 with new onset severe left ventricular systolic dysfunction, ej ection fraction 20-25% CXR with cardiomegaly with pulmonary edema and layering pleural effusions Evaluated by Cardiology Has been on heparin drip Initial troponin 1.4 -> 2.2 ->9.5 ->10.7 -> 12.1-->7 Started on aspirin and metoprolol Bilateral pleural effusions R>L on imaging Had bilateral thoracentesis by pulmonary with removal of 1550 mls of fluid from the left and 1850 mls of fluid from the right on 03/12/21 Patient feeling better. Respiratory failure has resolved. Has been weaned off oxygen. Currently on room air. Continue IV Lasix. Monitor electrolytes (5) Atrial fibrillation with RVR: Plan: Patient has been having A. fib with RVR with occasional conversion to sinus rhythm. Was initially on amiodarone drip. Now transitioned to p.o. amiodarone Continue Lopressor Cardiology on board (6) Embolism, arterial, leg, left: Plan: Had a thromboembolic event on 03/12/2021 with acute onset left leg paresthesia. In the setting of NSTEMI, new acute systolic heart failure with EF of 20 to 25% A. fib with RVR. Had thrombectomy by vascular surgeon on 03/12/21 Based on vascular surgeons report, likely still has residual thrombus that could not be addressed. We will continue medical management with anticoagulation and antiplatelet. Currently on heparin drip. Start Coumadin and monitor INR for goal of 2-3 (7) Acute kidney injury superimposed on chronic kidney disease: Plan: Initial Cr 2.02 (baseline ~ 1.5). In setting of decompensated heart failure, NSTEMI Renal function worsening despite diuresis - Cr 2.02 -> 2.73 -> 2.89 ->2.97->2.86-->>2.65->>2.46-->>2.32 Renal ultrasound without hydronephrosis Financial Aids Officer recommendation appreciated Renal function continues improving. Continue to monitor renal function Good urine output Avoid nephrotoxins (8) Leukocytosis: Plan: Leukocytosis resolved Lactate initially 3.9 --> 1.8, procalcitonin initially wnl --> 1.45 CXR also showing right perihilar and right lung base predominant airspace opacities. Superimposed pneumonia would be difficult to exclude UA 1+ leuk esterase, no urine bacteria Was initially started on empiric Zosyn, transitioned to Rocephin Blood and urine cultures negative. Antibiotics were discontinued (9) HTN (hypertension): Plan: BP running low Amlodipine on hold. D/c on discharge (10) Aortic stenosis: Plan: Known moderate aortic stenosis (11) CLL (chronic lymphocytic leukemia): Plan: Previously received oncology care in [place], received treatment once for this (immunotherapy) in 2012 and remains in remission Now following with Dr. Armenta (12) Anemia in CKD (chronic kidney disease): Plan: Hgb 11 (baseline) on admission. Stable in 9-10s (13) HAWA (obstructive sleep apnea): Plan: CPAP HS DVT Ppx: IV heparin Code status: FULL PCP: Niraj Dispo: PCU PT/OT eval noted Admission and Anticipated Discharge Date Admission Date: March 11, 2021 Subjective 80-year-old man with history of CLL, low-grade MDS who presented with worsening shortness of breath and dyspnea on exertion, subjective low-grade fever at home over the past 5days to 1 week Found to have NSTEMI, acute systolic heart failure and A. fib with RVR. Was on heparin drip. Patient also had pleural effusion required thoracentesis on 03/12/21 by pulmonary. Also had ERICK on CKD3 with worsening renal function. Nephrology was consulted Patient developed acute onset Left foot paresthesia on 03/12/2021. Noted to have left LE thromboembolic event. Was evaluated by vascular surgeon and taken for thrombectomy. Dr. Crawford was able to remove a small clot but the catheter could not be passed further down. Patient seen and examined Left foot paresthesia continues to improve Has occasional cough No chest pain, shortness of breath or palpitation No dizziness Review of Systems Review of Systems: At least ten systems reviewed and negative except as noted in the HPI. Constitutional: no fever and no chills Ear, Nose, Mouth, Throat: no problem reported Respiratory: Shortness of breath resolved. Occasional cough. Cardiovascular: Additional Comments: No chest pain. No shortness of breath. No palpitations Gastrointestinal: no abdominal pain, no nausea and no vomiting Musculoskeletal: Left leg paresthesia improving Neurologic: + paresthesia; no headache(s) and no confusion Psychiatric: no depression and no anxiety Physical Exam Constitutional: + well hydrated; no acute distress Eyes: PERRL, conjunctivae normal, anicteric sclerae ENMT: external ear and nose normal, oropharynx normal Respiratory: normal respiratory effort, lungs clear to auscultation normal respiratory effort; no respiratory distress Gastrointestinal (Abdomen): normal bowel sounds, soft, nontender, no hepatosplenomegaly Musculoskeletal: Delayed capillary refill in left toes Left foot warm. Neurologic: PERRL, EOMI, accommodation nl, no face palsy, no dysarthria Psychiatric: A+Ox3, euthymic affect Results & Data Results & Data ([facility]) Vital Signs (Past 12 Hours) Vital Signs Temp Pulse Pulse Resp BP Pulse Ox 03/16/21 11:50 36.6 C 65 18 95/60 L 97 03/16/21 07:57 64 03/16/21 07:54 37.0 C 64 19 100/63 94 03/16/21 04:10 36.7 C 67 16 99/59 L 96 Laboratory Results Abnormal lab results 03/15/21 03/15/21 03/16/21 Range/Units 16:15 20:14 05:38 RBC (4.7-6.1) M/uL Hgb (14.0-18.0) g/dL Hct (42-52) % MCV (80-100) fL MCH (25-34) pg RDW Std Deviation (36.4-46.3) fL RDW Coeff of Geovanni (11.5-14.5) % INR 1.2 H (0.9-1.1) APTT 48.1 H* (21.0-31.0) Seconds BUN (7-18) mg/dl Creatinine (0.6-1.4) mg/dl BUN/Creatinine Ratio (10-20) Glucose (70-99) mg/dl POC Glucose 128 H 133 H (70-99) mg/dl 03/16/21 03/16/21 03/16/21 Range/Units 05:38 05:38 07:05 RBC 2.84 L (4.7-6.1) M/uL Hgb 10.0 L (14.0-18.0) g/dL Hct 29.8 L (42-52) % MCV 104.9 H (80-100) fL MCH 35.2 H (25-34) pg RDW Std Deviation 59.9 H (36.4-46.3) fL RDW Coeff of Geovanni 16.0 H (11.5-14.5) % INR (0.9-1.1) APTT (21.0-31.0) Seconds BUN 60 H (7-18) mg/dl Creatinine 2.32 H (0.6-1.4) mg/dl BUN/Creatinine Ratio 25.9 H (10-20) Glucose 109 H (70-99) mg/dl POC Glucose 115 H (70-99) mg/dl 03/16/21 Range/Units 11:17 RBC (4.7-6.1) M/uL Hgb (14.0-18.0) g/dL Hct (42-52) % MCV (80-100) fL MCH (25-34) pg RDW Std Deviation (36.4-46.3) fL RDW Coeff of Geovanni (11.5-14.5) % INR (0.9-1.1) APTT (21.0-31.0) Seconds BUN (7-18) mg/dl Creatinine (0.6-1.4) mg/dl BUN/Creatinine Ratio (-20) Glucose (70-99) mg/dl POC Glucose 133 H (70-99) mg/dl
--- NOTE | 2021-03-16 14:30 | Nephrology Progress Note ---
Date of Service March 16, 2021 Assessment & Plan Admission and Anticipated Discharge Date Admission Date: March 11, 2021 Subjective Assessment & Plan Admission and Anticipated Discharge Date Admission Date: March 11, 2021 Subjective Assessment & Plan (1) Acute decompensated heart failure: new onset LV dysfunction 25% EF w/ LAD WMA -cont strict I/O, daily STANDING wt, <2 gm daily Na diet ordered -continue 20 mg IV lasix tid for now --Defer to Cards when to switch over to PO diuretics. (2) Acute kidney injury superimposed on chronic kidney disease: Plan: baseline creatinine 1.4-1.5; at baseline as recently as 03/01/21. chemistries acceptable; volume overload improving but w/ new onset systolic heart failure nonoliguric stage 1 ERICK on CKD3a; was 2.2 on presentation 03/11 and uptrended fast to peak at 2.9 03/12-, downtrending since then and today is 2.3 today with excellent urine output. urine sediment c/w ATNl. ischemic ATN in setting of new onset LV function and a fib. -daily bmp --Electrolytes Stable--replace as needed Subjective no acute interval events. No SOB and no edema. Did remove del rosario and is making urine--no issues there. Review of Systems Review of Systems: All systems reviewed & are unremarkable except as noted in Subjective Physical Exam Constitutional: well developed, well nourished, cooperative and + overweight; no acute distress Eyes: EOM intact bilaterally ENMT: Ears: no external ear abnormality Nose: no external nose abnormality Mouth: + dry oral mucous membranes Neck: no nuchal rigidity Respiratory: normal respiratory effort and able to speak in complete sentences Auscultation: + diminished lung sounds Cardiovascular: Rate/Rhythm: regular rate and regular rhythm Extremities: no edema Gastrointestinal (Abdomen): Inspection/Auscultation: normal bowel sounds Percussion/Palpation: abdomen soft; abdomen nontender Musculoskeletal: Extremities: strength 5/5 throughout Skin: no rashes, warm and dry Neurologic: [place], fluent speech, no tremor Psychiatric: Orientation: oriented x 3 Results & Data ([facility]) Vital Signs (Past 12 Hours) Vital Signs Temp Pulse Pulse Resp BP Pulse Ox 03/16/21 11:50 36.6 C 65 18 95/60 L 97 03/16/21 07:57 64 03/16/21 07:54 37.0 C 64 19 100/63 94 03/16/21 04:10 36.7 C 67 16 99/59 L 96
[2021-03-16] MEDS: WARFARIN SOD 5 MG TAB PO SCH (17:01)
[2021-03-16] MEDS: HEPARIN SODIUM/DEXTROSE 25,000 UNITS/500 ML BAG IV SCH (17:59)
[2021-03-16] MEDS: ATORVASTATIN 40 MG TAB PO SCH (20:56)
[2021-03-17] MEDS: LEVOTHYROXINE SODIUM 75 MCG TABLET PO SCH (06:32)
[2021-03-17] MEDS: FUROSEMIDE 20 MG in SYRINGE 0 ML IV SCH (06:32)
[2021-03-17] MEDS ORDERED: EPOETIN ALFA 10,000 UNITS/ML VIAL SQ SCH ×2 (07:00→09:30)
[2021-03-17 07:07] LABS: Hematocrit (blood only) 28.2 % (42-52); Hemoglobin 9.6 g/dL (14.0-18.0); Mean Corpuscular Hemoglobin 35.3 pg (25-34); Mean Corpuscular Volume 103.7 fL (80-100); Mean Platelet Volume 9.6 fL (7.4-10.4); Platelet Count 342 K/uL (130-400); RDW Coefficient of Variation 16.1 % (11.5-14.5); RDW Standard Deviation 59.6 fL (36.4-46.3); Red Blood Count 2.72 M/uL (4.7-6.1); White Blood Count 7.32 K/uL (4.8-10.8)
[2021-03-17 07:36] LABS: INR 1.4 (0.9-1.1); Partial Thromboplastin Ratio 2.7; Prothrombin Time 13.5 Seconds (9.0-12.0)
[2021-03-17] MEDS: INSULIN ASPART 100 UNITS/ML 3 ML PEN SC SCH ×4 (07:37→20:51)
[2021-03-17 07:39] LABS: Albumin Globulin Ratio 0.9 (0.9-2); Albumin Level 2.9 gm/dl (3.4-5.0); BUN Creatinine Ratio 23.1 (10-20); Bilirubin,Total 0.8 mg/dl (0.2-1); Calcium 8.8 mg/dl (8.5-10.1); Creatinine Clr Calc Pharmacy 25.7 ml/min; Globulin 3.2 gm/dl (2.5-4.0); Magnesium 2.6 mg/dl (1.8-2.4); Phosphorus 4.3 mg/dl (2.5-4.9); Potassium 4.3 mmol/L (3.5-5.1); Total Protein 6.1 gm/dl (6.4-8.2)
[2021-03-17 07:44] LABS: Partial Thromboplastin Time 69.8 Seconds (21.0-31.0)
[2021-03-17] MEDS: METOPROLOL TARTRATE 25 MG TAB PO SCH ×2 (08:18→20:58)
[2021-03-17] MEDS: ASPIRIN 81 MG ECTAB PO SCH (08:18)
[2021-03-17] MEDS: AMIODARONE 200 MG TAB PO SCH ×2 (08:18→21:00)
--- NOTE | 2021-03-17 09:01 | Nephrology Progress Note ---
Date of Service March 17, 2021 Assessment & Plan Admission and Anticipated Discharge Date Admission Date: March 11, 2021 Subjective Subjective Assessment & Plan (1) Acute decompensated heart failure: new onset LV dysfunction 25% EF w/ LAD WMA -cont strict I/O, daily STANDING wt, <2 gm daily Na diet ordered -Stop Iv lasix. use lasix 40 mg po daily from now. Seems Enough Diuresed now. (2) Acute kidney injury superimposed on chronic kidney disease: Plan: baseline creatinine 1.4-1.5; at baseline as recently as 03/01/21. chemistries acceptable; volume overload improving but w/ new onset systolic heart failure nonoliguric stage 1 ERICK on CKD3a; was 2.2 on presentation 03/11 and uptrended fast to peak at 2.9 03/12-, Creat up a bit from yesterday. Also he appears he has been diuresed enough. urine sediment c/w ATNl. ischemic ATN in setting of new onset LV function and a fib. -daily bmp --Electrolytes Stable--replace as needed Anemia--On chronic Retacrit 96687 units. Gave 82533 units. will give 66991 more. Gets 30196 units weekly outpt through hematology Subjective no acute interval events. No SOB and no edema. making urine--no issues there. Review of Systems Review of Systems: All systems reviewed & are unremarkable except as noted in Subjective Physical Exam Constitutional: well developed, well nourished, cooperative and + overweight; no acute distress Eyes: EOM intact bilaterally ENMT: Ears: no external ear abnormality Nose: no external nose abnormality Mouth: + dry oral mucous membranes Neck: no nuchal rigidity Respiratory: normal respiratory effort and able to speak in complete sentences Auscultation: + diminished lung sounds Cardiovascular: Rate/Rhythm: regular rate and regular rhythm Extremities: no edema Gastrointestinal (Abdomen): Inspection/Auscultation: normal bowel sounds Percussion/Palpation: abdomen soft; abdomen nontender Musculoskeletal: Extremities: strength 5/5 throughout Skin: no rashes, warm and dry Neurologic: carr[place], fluent speech, no tremor Psychiatric: Orientation: oriented x 3 Results & Data ([facility]) Vital Signs (Past 12 Hours) Vital Signs Temp Pulse Resp BP Pulse Ox 03/17/21 07:42 36.6 C 68 17 117/67 95 03/17/21 03:58 36.7 C 63 18 103/66 97 03/16/21 23:53 36.7 C 62 18 105/65 96
[2021-03-17] MEDS: FUROSEMIDE 40 MG TAB PO SCH (10:13)
--- NOTE | 2021-03-17 11:28 | Cardiology Progress Note ---
Date of Service March 17, 2021 Assessment & Plan (1) NSTEMI (non-ST elevated myocardial infarction): (2) Acute decompensated heart failure: (3) Atrial fibrillation with RVR: (4) Embolism, arterial, leg, left: (5) Acute kidney injury superimposed on chronic kidney disease: Plan: Patient volume status and renal function improving. Creatinine remains stable over the last few days. IV furosemide discontinued, transitioned to oral furosemide this morning. Monitor fluid status Patient maintaining NSR. Continue amiodarone and will reduce dose to 200 mg BID Continue metoprolol. Status post bilateral thoracentesis performed 03/12/2021 with transudate of flui d. Amlodipine on hold due to hypotension Continue low-dose aspirin and IV heparin infusion until INR 2-3. Continue Coumadin. INR 1.4 today Further management of left lower extremity arterial embolism as per vascular surgery. No further intervention required per noes this morning. Will f/u in their office in 2 weeks for staple removal. Case discussed with Dr. White. Will follow Admission and Anticipated Discharge Date Admission Date: March 11, 2021 Supervising Physician Co-Signing Physician Notes Patient seen and examined at the bedside. No complaints today. Creatinine remained stable. Ambulating in his room and hallway without chest pain or shortness of breath. Left foot discomfort unchanged. Doppler pulse present. Fluid balance -1.1 L. PE: VSS. Gen: NAD, AAOx3. Heart: Regular rhythm, normal S1-S2, no murmur. Lungs: Clear bilateral, no rales rhonchi or wheeze. Extremities: Left foot is cool to touch. + Palpable right-sided DP, + left-sided Doppler DP pulse. No skin breakdown or ulceration. Agree with above PA-C history, physical exam, assessment and plan. Dose warfarin for goal INR 2.0-3.0. Transition patient from IV Lasix to oral furosemide 40 mg daily. Nephrology input appreciated. Follow daily weight, GFR, electrolytes, and fluid balance. Replace electrolytes as indicated. Patient questioning left ventricular function today. I discussed his recent resting 2D transthoracic echocardiogram demonstrating ejection fraction of 20- 25% and moderate aortic stenosis. All questions answered to his satisfaction. Subjective Patient resting out of bed comfortably. Denies acute complaints. Feels as if he is slowly improving. Ambulating in hallways without chest pain or SOB. Denies dizziness, syncope or near syncope. No foot pain. No orthopnea, PND or edema. Review of Systems Review of Systems: Complete Review of Systems is as stated above, negative, or noncontributory Physical Exam Constitutional: WD/WN, vitals as above Eyes: PERRL, conjunctivae normal, anicteric sclerae ENMT: external ear and nose normal, oropharynx normal Neck: trachea midline, no thyromegaly Respiratory: normal respiratory effort, lungs clear to auscultation Cardiovascular: RRR, no murmur, no edema Rate/Rhythm: regular rate and regular rhythm Heart Sounds: + murmur (II/ systolic murmur Left and Right SB) Vessels: no JVD Extremities: normal capillary refill (left foot warm to touch, cool toes); no edema Gastrointestinal (Abdomen): normal bowel sounds, soft, nontender, no hepatosplenomegaly Musculoskeletal: no cyanosis or clubbing, extremities motor strength 5/5 Skin: no rashes, warm and dry Neurologic: PERRL, EOMI, accommodation nl, no face palsy, no dysarthria Psychiatric: A+Ox3, euthymic affect Results & Data ([facility]) Vital Signs (Past 12 Hours) Vital Signs Temp Pulse Pulse Resp BP Pulse Ox 03/17/21 11:09 36.6 C 60 18 115/70 98 03/17/21 08:00 61 03/17/21 07:42 36.6 C 68 17 117/67 95 03/17/21 03:58 36.7 C 63 18 103/66 97 03/16/21 23:53 36.7 C 62 18 105/65 96 Laboratory Results 03/17/21 03/17/21 03/17/21 Range/Units 07:32 06:13 06:13 WBC 7.32 (4.8-10.8) K/uL RBC 2.72 L (4.7-6.1) M/uL Hgb 9.6 L (14.0-18.0) g/dL Hct 28.2 L (42-52) % MCV 103.7 H (80-100) fL MCH 35.3 H (25-34) pg MCHC 34.0 (32-36) g/dL RDW Std Deviation 59.6 H (36.4-46.3) fL RDW Coeff of Geovanni 16.1 H (11.5-14.5) % Plt Count 342 (130-400) K/uL MPV 9.6 (7.4-10.4) fL PT (9.0-12.0) Seconds INR (0.9-1.1) APTT (21.0-31.0) Seconds PTT Ratio Sodium 138 (136-145) mmol/L Potassium 4.3 D (3.5-5.1) mmol/L Chloride 102 (98-107) mmol/L Carbon Dioxide 30 (21-32) mmol/L Anion Gap 6.0 (3-11) BUN 55 H (7-18) mg/dl Creatinine 2.38 H (0.6-1.4) mg/dl Est Cr Clr Drug Dosing 25.7 ml/min Est GFR ( Amer) 29.0 ml/min Est GFR (Non-Af Amer) 25.0 ml/min BUN/Creatinine Ratio 23.1 H (10-20) Glucose 109 H (70-99) mg/dl POC Glucose 121 H (70-99) mg/dl Calcium 8.8 (8.5-10.1) mg/dl Phosphorus 4.3 (2.5-4.9) mg/dl Magnesium 2.6 H (1.8-2.4) mg/dl Total Bilirubin 0.8 (0.2-1) mg/dl AST 35 (15-37) U/L ALT 58 (12-78) U/L Alkaline Phosphatase 66 (45-117) U/L Total Protein 6.1 L (6.4-8.2) gm/dl Albumin 2.9 L (3.4-5.0) gm/dl Globulin 3.2 (2.5-4.0) gm/dl Albumin/Globulin Ratio 0.9 (0.9-2) 03/17/21 03/16/21 03/16/21 Range/Units 06:13 20:50 16:30 WBC (4.8-10.8) K/uL RBC (4.7-6.1) M/uL Hgb (14.0-18.0) g/dL Hct (42-52) % MCV (80-100) fL MCH (25-34) pg MCHC (32-36) g/dL RDW Std Deviation (36.4-46.3) fL RDW Coeff of Geovanni (11.5-14.5) % Plt Count (130-400) K/uL MPV (7.4-10.4) fL PT 13.5 H (9.0-12.0) Seconds INR 1.4 H (0.9-1.1) APTT 69.8 H* (21.0-31.0) Seconds PTT Ratio 2.7 Sodium (136-145) mmol/L Potassium (3.5-5.1) mmol/L Chloride (98-107) mmol/L Carbon Dioxide (21-32) mmol/L Anion Gap (3-11) BUN (7-18) mg/dl Creatinine (0.6-1.4) mg/dl Est Cr Clr Drug Dosing ml/min Est GFR ( Amer) ml/min Est GFR (Non-Af Amer) ml/min BUN/Creatinine Ratio (10-20) Glucose (70-99) mg/dl POC Glucose 114 H 116 H (70-99) mg/dl Calcium (8.5-10.1) mg/dl Phosphorus (2.5-4.9) mg/dl Magnesium (1.8-2.4) mg/dl Total Bilirubin (0.2-1) mg/dl AST (15-37) U/L ALT (12-78) U/L Alkaline Phosphatase (45-117) U/L Total Protein (6.4-8.2) gm/dl Albumin (3.4-5.0) gm/dl Globulin (2.5-4.0) gm/dl Albumin/Globulin Ratio (0.9-2) 03/16/21 Range/Units 11:17 WBC (4.8-10.8) K/uL RBC (4.7-6.1) M/uL Hgb (14.0-18.0) g/dL Hct (42-52) % MCV (80-100) fL MCH (25-34) pg MCHC (32-36) g/dL RDW Std Deviation (36.4-46.3) fL RDW Coeff of Geovanni (11.5-14.5) % Plt Count (130-400) K/uL MPV (7.4-10.4) fL PT (9.0-12.0) Seconds INR (0.9-1.1) APTT (21.0-31.0) Seconds PTT Ratio Sodium (136-145) mmol/L Potassium (3.5-5.1) mmol/L Chloride (98-107) mmol/L Carbon Dioxide (21-32) mmol/L Anion Gap (3-11) BUN (7-18) mg/dl Creatinine (0.6-1.4) mg/dl Est Cr Clr Drug Dosing ml/min Est GFR ( Amer) ml/min Est GFR (Non-Af Amer) ml/min BUN/Creatinine Ratio (10-20) Glucose (70-99) mg/dl POC Glucose 133 H (70-99) mg/dl Calcium (8.5-10.1) mg/dl Phosphorus (2.5-4.9) mg/dl Magnesium (1.8-2.4) mg/dl Total Bilirubin (0.2-1) mg/dl AST (15-37) U/L ALT (12-78) U/L Alkaline Phosphatase (45-117) U/L Total Protein (6.4-8.2) gm/dl Albumin (3.4-5.0) gm/dl Globulin (2.5-4.0) gm/dl Albumin/Globulin Ratio (0.9-2) Diagnostic Findings Telemetry reviewed - NSR with conduction system disease EKG yesterday - NSR with LBBB, QT/QTC 454/503 ms Medications Administered Current Inpatient Medications Acetaminophen (Acetaminophen 325 Mg Tab) 650 mg PO Q4H PRN PRN Reason: Pain or Fever Stop: 04/10/21 07:30 Amiodarone HCl (Amiodarone 200 Mg Tab) 200 mg PO TID [facility] Stop: 04/13/21 13:59 Last Admin: 03/17/21 08:18 Dose: 200 mg Documented by: Amlodipine Besylate (Amlodipine Besylate 5 Mg Tab) 2.5 mg PO DAILY [facility] Stop: 04/10/21 08:59 Last Admin: 03/12/21 08:26 Dose: 2.5 mg Documented by: Aspirin (Aspirin 81 Mg Ectab) 81 mg PO QAM [facility] Stop: 04/11/21 08:59 Last Admin: 03/17/21 08:18 Dose: 81 mg Documented by: Atorvastatin Calcium (Atorvastatin 40 Mg Tab) 40 mg PO HS [facility] Stop: 04/15/21 20:59 Last Admin: 03/16/21 20:56 Dose: Not Given Documented by: Dextrose (Dextrose 50% 50 Ml Syringe) 25 - 50 ml IV UD PRN; Protocol PRN Reason: Hypoglycemia Protocol Stop: 04/10/21 21:30 Epoetin Mauro (Epoetin Mauro 10,000 Units/Ml Vial) 10,000 units SQ TODAY@0700 [facility] Stop: 03/17/21 16:00 Last Admin: 03/17/21 08:20 Dose: 10,000 units Documented by: Epoetin Mauro (Epoetin Mauro 10,000 Units/Ml Vial) 10,000 units SQ TODAY@0930 [facility] Stop: 03/17/21 16:00 Last Admin: 03/17/21 10:38 Dose: 10,000 units Documented by: Furosemide (Furosemide 40 Mg Tab) 40 mg PO QAM [facility] Stop: 04/16/21 08:59 Last Admin: 03/17/21 10:13 Dose: 40 mg Documented by: Glucagon (Glucagon For Inj 1 Mg Vial) 1 mg SQ UD PRN; Protocol PRN Reason: Hypoglycemia Protocol Stop: 04/10/21 21:30 Glucose (Glucose 10 Tabs/Tube) 4 - 8 tabs PO UD PRN; Protocol PRN Reason: Hypoglycemia Protocol Stop: 04/10/21 21:30 Glucose (Glucose 40% Gel 15 Gm Tube) 15 - 30 gm PO UD PRN; Protocol PRN Reason: Hypoglycemia Protocol Stop: 04/10/21 21:30 Heparin Sodium/Dextrose (Heparin Sodium/Dextrose) 25,000 units in 500 mls @ 25 mls/hr IV .Q20H [facility]; Protocol Stop: 04/10/21 03:59 Last Titration: 03/17/21 07:45 Dose: 1,250 units/hr, 25 mls/hr Documented by: Insulin Aspart (Insulin Aspart 100 Units/Ml 3 Ml Pen) 0 units SC ACHS [facility] Stop: 04/11/21 07:29 Last Admin: 03/17/21 07:37 Dose: Not Given Documented by: Levothyroxine Sodium (Levothyroxine Sodium 75 Mcg Tablet) 75 mcg PO DAILYBB [facility] Stop: 04/11/21 06:29 Last Admin: 03/17/21 06:32 Dose: 75 mcg Documented by: Metoprolol Tartrate (Metoprolol Tartrate 25 Mg Tab) 12.5 mg PO BID [facility] Stop: 04/12/21 20:59 Last Admin: 03/17/21 08:18 Dose: 12.5 mg Documented by: Miscellaneous (Carbohydrates For Hypoglycemia ) 15 - 30 gm PO UD PRN PRN Reason: Hypoglycemia Protocol Stop: 04/10/21 21:30 Oxycodone/Acetaminophen (Oxycodone/Acetaminophen 5mg/325mg Tab) 1 - 2 tab PO Q4H PRN PRN Reason: Moderate Pain Stop: 03/26/21 19:15 Last Admin: 03/13/21 09:30 Dose: 1 tab Documented by: Polyethylene Glycol (Polyethylene (Miralax) 17 Gm Pack) 17 gm PO DAILY PRN PRN Reason: Constipation Stop: 04/10/21 07:30 Warfarin Sodium (Warfarin Sod 5 Mg Tab) 5 mg PO DAILY@1600 [facility] Stop: 04/14/21 15:59 Last Admin: 03/16/21 17:01 Dose: 5 mg Documented by:
[2021-03-17] MEDS: HEPARIN SODIUM/DEXTROSE 25,000 UNITS/500 ML BAG IV SCH (12:46)
[2021-03-17 14:15] LABS: Partial Thromboplastin Ratio 2.2
[2021-03-17 14:24] LABS: Partial Thromboplastin Time 56.7 Seconds (21.0-31.0)
[2021-03-17] MEDS: WARFARIN SOD 5 MG TAB PO SCH (15:09)
--- NOTE | 2021-03-17 17:17 | Hospitalist Progress Note ---
Date of Service March 17, 2021 Assessment & Plan (1) Acute respiratory failure: (2) Bilateral pleural effusion: (3) NSTEMI (non-ST elevated myocardial infarction): (4) Acute decompensated heart failure: Plan: Patient is a 80 yr male with H/O CLL, low-grade myelodysplastic syndrome, HTN, moderate aortic stenosis, HTN, LBBB, CKD III and other medical problems listed below who presents with fevers, chills and shortness of breath x 1 week. Acute Systolic/Diastolic CHF Exacerbation B/L Pleural Effusion S/P thoracentesis Acute respiratory failure with hypoxia-POA resolved -CXR:Cardiomegaly with pulmonary edema and layering pleural effusions. Right perihilar and right lung base predominant airspace opacities. Superimposed pneumonia would be difficult to exclude. -ECHO:new onset severe left ventricular systolic dysfunction, ejection fraction 20-25%, grade 2 diastolic dysfunction. Moderate mitral regurgitation. -IV diuretics transitioned to PO Saturating well on room air Appreciate cardiology, pulmonology, Nephrology Input NSTEMI Elevated Troponin Conservative management Continue aspirin, metoprolol, statin Cardiology on board Needs follow-up with cardiology upon discharge (5) Atrial fibrillation with RVR: Plan: New onset A fib with RVR Continue amiodarone, metoprolol Continue IV heparin until INR is therapeutic Continue Coumadin Monitor INR: 1.4 Appreciate Cardiology input (6) Embolism, arterial, leg, left: Plan: Patient had thromboembolic event on 03/12/2021 with acute onset left leg paresthesia. In the setting of NSTEMI, new acute systolic heart failure with EF of 20 to 25% A. fib with RVR. Had thrombectomy by vascular surgeon on 03/12/21 Based on vascular surgeons report, likely still has residual thrombus that could not be addressed. We will continue medical management with anticoagulation and antiplatelet. Needs follow-up with vascular surgery in 2 weeks upon discharge Continue Coumadin. Aspirin (7) Acute kidney injury superimposed on chronic kidney disease: Plan: Baseline ~ 1.5 In setting of decompensated heart failure, NSTEMI Cr:2.3 Appreciate Nephrology Input Monitor renal function (8) Leukocytosis: Plan: As per Prior hospitalist Leukocytosis resolved Lactate initially 3.9 --> 1.8, procalcitonin initially wnl --> 1.45 CXR also showing right perihilar and right lung base predominant airspace opacities. Superimposed pneumonia would be difficult to exclude UA 1+ leuk esterase, no urine bacteria Was initially started on empiric Zosyn, transitioned to Rocephin Blood and urine cultures negative. Antibiotics were discontinued (9) HTN (hypertension): Plan: BP relatively low Amlodipine on hold, plan to discontinue on discharge as well (10) Aortic stenosis: Plan: Known moderate aortic stenosis (11) CLL (chronic lymphocytic leukemia): Plan: Previously received oncology care in [place], received treatment once for this (immunotherapy) in 2012 and remains in remission Currently follows with Dr. Armenta (12) Anemia in CKD (chronic kidney disease): Plan: on Procrit Stable in 9-10s Received Procrit (13) HAWA (obstructive sleep apnea): Plan: CPAP HS DVT Px: IV heparin, Coumadin Code status: FULL CODE Admission and Anticipated Discharge Date Admission Date: March 11, 2021 Subjective Patient is seen and examined at bedside States having left heel soreness Denies chest pain, shortness of breath, dizziness, nausea, abdominal pain Offers no other complaints Renal function stable Review of Systems Review of Systems: All systems reviewed & are unremarkable except as noted in Subjective Physical Exam Physical Exam: Physical Exam: Vitals signs as noted above General Appearance:Moderately built and nourished, no apparent distress Head: normocephalic, Atraumatic Eyes: normal inspection, EOMI Neck: supple, Trachea midline Respiratory/Chest: Normal breath sounds, CTA Cardiovascular: S1, S2, + murmur Abdomen/GI:Soft, Non tender, Bowel sounds present Extremities/Musculoskeletal:normal inspection, no edema Neurologic/Psych:AAOX3, grossly no focal neurological deficits Skin: normal color, warm Results & Data Results & Data ([facility]) Vital Signs (Past 12 Hours) Vital Signs Temp Pulse Pulse Resp BP Pulse Ox 03/17/21 16:40 60 03/17/21 16:16 63 03/17/21 15:05 36.5 C 61 18 110/62 96 03/17/21 11:09 36.6 C 60 18 115/70 98 03/17/21 08:00 61 03/17/21 07:42 36.6 C 68 17 117/67 95 Laboratory Results Short CBC 03/17/21 Range/Units 06:13 WBC 7.32 (4.8-10.8) K/uL Hgb 9.6 L (14.0-18.0) g/dL Hct 28.2 L (42-52) % Plt Count 342 (130-400) K/uL BMP 03/17/21 06:13 Sodium 138 Potassium 4.3 D Chloride 102 Carbon Dioxide 30 BUN 55 H Creatinine 2.38 H Glucose 109 H Calcium 8.8 Liver Function 03/17/21 Range/Units 06:13 Total Bilirubin 0.8 (0.2-1) mg/dl AST 35 (15-37) U/L ALT 58 (12-78) U/L Alkaline Phosphatase 66 (45-117) U/L Albumin 2.9 L (3.4-5.0) gm/dl
--- NOTE | 2021-03-17 17:42 | Electrocardiogram Report ---
Test Reason : Blood Pressure : / mmHG Vent. Rate : 074 BPM Atrial Rate : 074 BPM P-R Int : 188 ms QRS Dur : 162 ms QT Int : 454 ms P-R-T Axes : 061 024 171 degrees QTc Int : 503 ms Sinus rhythm with Premature atrial complexes Left bundle branch block Abnormal ECG When compared with ECG of 14-MAR-2021 06:01, Sinus rhythm has replaced Atrial fibrillation Confirmed by Wang Blanc ([id number]) on 03/17/2021 5:42:14 PM Referred By: REFERRED SELF Confirmed By:Loiue Blanc
[2021-03-17] MEDS: ATORVASTATIN 40 MG TAB PO SCH (20:58)
[2021-03-18 06:06] LABS: Hematocrit (blood only) 29.7 % (42-52)
[2021-03-18] MEDS: LEVOTHYROXINE SODIUM 75 MCG TABLET PO SCH (06:25)
[2021-03-18 06:31] LABS: INR 1.8 (0.9-1.1); Partial Thromboplastin Ratio 2.8; Prothrombin Time 17.2 Seconds (9.0-12.0)
[2021-03-18 06:39] LABS: BUN Creatinine Ratio 23.7 (10-20); Calcium 8.8 mg/dl (8.5-10.1); Est GFR (African American) 29.4 ml/min; Est GFR (Non-African American) 25.4 ml/min; Potassium 3.9 mmol/L (3.5-5.1)
[2021-03-18 06:59] LABS: Partial Thromboplastin Time 72.6 Seconds (21.0-31.0)
[2021-03-18] MEDS: HEPARIN SODIUM/DEXTROSE 25,000 UNITS/500 ML BAG IV SCH ×3 (09:08→11:28)
[2021-03-18] MEDS: INSULIN ASPART 100 UNITS/ML 3 ML PEN SC SCH ×4 (09:09→21:00)
[2021-03-18] MEDS: AMIODARONE 200 MG TAB PO SCH ×2 (09:10→21:00)
[2021-03-18] MEDS: METOPROLOL TARTRATE 25 MG TAB PO SCH ×2 (09:10→21:01)
[2021-03-18] MEDS: FUROSEMIDE 40 MG TAB PO SCH (09:10)
[2021-03-18] MEDS: ASPIRIN 81 MG ECTAB PO SCH (09:10)
--- NOTE | 2021-03-18 10:11 | Cardiology Progress Note ---
Date of Service March 18, 2021 Assessment & Plan (1) NSTEMI (non-ST elevated myocardial infarction): (2) Acute decompensated heart failure: (3) Atrial fibrillation with RVR: (4) Embolism, arterial, leg, left: (5) Acute kidney injury superimposed on chronic kidney disease: Plan: Patient volume status and renal function improving. Creatinine remains stable over the last few days. IV furosemide discontinued, transitioned to oral furosemide Patient maintaining NSR. Continue amiodarone and will reduce dose to 200 mg BID Continue metoprolol. Status post bilateral thoracentesis performed 03/12/2021 with transudate of fluid. Amlodipine on hold due to hypotension Continue low-dose aspirin and IV heparin infusion until INR 2-3. Continue Coumadin. INR 1.8 today Further management of left lower extremity arterial embolism as per vascular surgery. No further intervention required per noes this morning. Will f/u in their office in 2 weeks for staple removal. Case discussed with Dr. White. Will follow Admission and Anticipated Discharge Date Admission Date: March 11, 2021 Supervising Physician Co-Signing Physician Notes Patient seen and examined at the bedside. No complaints today. Creatinine remained stable. IV diuretics discontinued. Ambulating in his room and hallway without chest pain or shortness of breath. Left foot discomfort unchanged. Fluid balance positive over the past 24 hours. PE: VSS. Gen: NAD, AAOx3. Heart: Regular rhythm, normal S1-S2, no murmur. Lungs: Clear bilateral, no rales rhonchi or wheeze. Extremities: Left foot is cool to touch. No skin breakdown or ulceration. Agree with above PA-C history, physical exam, assessment and plan. INR subtherapeutic today, 1.8. Dose warfarin for goal INR 2.0-3.0. Transition patient from IV Lasix to oral furosemide 40 mg daily. Nephrology input appreciated. Follow daily weight, GFR, electrolytes, and fluid balance. Replace electrolytes as indicated. Repeat limited resting 2D transthoracic echocardiogram for reassessment of LV systolic function. Subjective Patient feeling well today. Getting anxious for discharge No chest pain or SOB. No dizziness, syncope or near syncope. No palpitations. No foot pain. Review of Systems Review of Systems: Complete Review of Systems is as stated above, negative, or noncontributory Physical Exam Constitutional: WD/WN, vitals as above Eyes: PERRL, conjunctivae normal, anicteric sclerae ENMT: external ear and nose normal, oropharynx normal Neck: trachea midline, no thyromegaly Respiratory: normal respiratory effort, lungs clear to auscultation Cardiovascular: RRR, no murmur, no edema Rate/Rhythm: regular rate and regular rhythm Heart Sounds: + murmur (II/ systolic murmur Left and Right SB) Vessels: no JVD Extremities: normal capillary refill (left foot warm to touch, cool toes); no edema Gastrointestinal (Abdomen): normal bowel sounds, soft, nontender, no hepatosplenomegaly Musculoskeletal: no cyanosis or clubbing, extremities motor strength 5/5 Skin: no rashes, warm and dry Neurologic: PERRL, EOMI, accommodation nl, no face palsy, no dysarthria Psychiatric: A+Ox3, euthymic affect Results & Data ([facility]) Vital Signs (Past 12 Hours) Vital Signs Temp Pulse Pulse Pulse Resp BP Pulse Ox 03/18/21 07:50 36.8 C 61 17 121/72 96 03/18/21 04:00 36.7 C 74 20 113/72 96 03/17/21 23:00 36.7 C 66 67 16 102/60 93 Laboratory Results 03/18/21 03/18/21 03/18/21 Range/Units 07:07 05:47 05:47 Hgb 10.0 L (14.0-18.0) g/dL Hct 29.7 L (42-52) % PT 17.2 H (9.0-12.0) Seconds INR 1.8 H (0.9-1.1) APTT 72.6 H* (21.0-31.0) Seconds PTT Ratio 2.8 Sodium (136-145) mmol/L Potassium (3.5-5.1) mmol/L Chloride (98-107) mmol/L Carbon Dioxide (21-32) mmol/L Anion Gap (3-11) BUN (7-18) mg/dl Creatinine (0.6-1.4) mg/dl Est Cr Clr Drug Dosing ml/min Est GFR ( Amer) ml/min Est GFR (Non-Af Amer) ml/min BUN/Creatinine Ratio (10-20) Glucose (70-99) mg/dl POC Glucose 112 H (70-99) mg/dl Calcium (8.5-10.1) mg/dl Pleural Cholesterol mg/dL 03/18/21 03/17/21 03/17/21 Range/Units 05:47 20:38 16:22 Hgb (14.0-18.0) g/dL Hct (42-52) % PT (9.0-12.0) Seconds INR (0.9-1.1) APTT (21.0-31.0) Seconds PTT Ratio Sodium 138 (136-145) mmol/L Potassium 3.9 (3.5-5.1) mmol/L Chloride 103 (98-107) mmol/L Carbon Dioxide 29 (21-32) mmol/L Anion Gap 6.0 (3-11) BUN 56 H (7-18) mg/dl Creatinine 2.35 H (0.6-1.4) mg/dl Est Cr Clr Drug Dosing 26.0 ml/min Est GFR ( Amer) 29.4 ml/min Est GFR (Non-Af Amer) 25.4 ml/min BUN/Creatinine Ratio 23.7 H (10-20) Glucose 113 H (70-99) mg/dl POC Glucose 137 H 112 H (70-99) mg/dl Calcium 8.8 (8.5-10.1) mg/dl Pleural Cholesterol mg/dL 03/17/21 03/17/21 03/12/21 Range/Units 13:39 11:08 Unknown Hgb (14.0-18.0) g/dL Hct (42-52) % PT (9.0-12.0) Seconds INR (0.9-1.1) APTT 56.7 H* (21.0-31.0) Seconds PTT Ratio 2.2 Sodium (136-145) mmol/L Potassium (3.5-5.1) mmol/L Chloride (98-107) mmol/L Carbon Dioxide (21-32) mmol/L Anion Gap (3-11) BUN (7-18) mg/dl Creatinine (0.6-1.4) mg/dl Est Cr Clr Drug Dosing ml/min Est GFR ( Amer) ml/min Est GFR (Non-Af Amer) ml/min BUN/Creatinine Ratio (10-20) Glucose (70-99) mg/dl POC Glucose 129 H (70-99) mg/dl Calcium (8.5-10.1) mg/dl Pleural Cholesterol 17 mg/dL 03/12/21 Range/Units Unknown Hgb (14.0-18.0) g/dL Hct (42-52) % PT (9.0-12.0) Seconds INR (0.9-1.1) APTT (21.0-31.0) Seconds PTT Ratio Sodium (136-145) mmol/L Potassium (3.5-5.1) mmol/L Chloride (98-107) mmol/L Carbon Dioxide (21-32) mmol/L Anion Gap (3-11) BUN (7-18) mg/dl Creatinine (0.6-1.4) mg/dl Est Cr Clr Drug Dosing ml/min Est GFR ( Amer) ml/min Est GFR (Non-Af Amer) ml/min BUN/Creatinine Ratio (10-20) Glucose (70-99) mg/dl POC Glucose (70-99) mg/dl Calcium (8.5-10.1) mg/dl Pleural Cholesterol 14 mg/dL Diagnostic Findings Telemetry reviewed - NSR with conduction delay, PAC's. 10 beat run of non sustained VT last evening around 22:00. No symptoms Medications Administered Current Inpatient Medications Acetaminophen (Acetaminophen 325 Mg Tab) 650 mg PO Q4H PRN PRN Reason: Pain or Fever Stop: 04/10/21 07:30 Amiodarone HCl (Amiodarone 200 Mg Tab) 200 mg PO BID [facility] Stop: 04/16/21 20:59 Last Admin: 03/18/21 09:10 Dose: 200 mg Documented by: Amlodipine Besylate (Amlodipine Besylate 5 Mg Tab) 2.5 mg PO DAILY [facility] Stop: 04/10/21 08:59 Last Admin: 03/12/21 08:26 Dose: 2.5 mg Documented by: Aspirin (Aspirin 81 Mg Ectab) 81 mg PO QAM [facility] Stop: 04/11/21 08:59 Last Admin: 03/18/21 09:10 Dose: 81 mg Documented by: Atorvastatin Calcium (Atorvastatin 40 Mg Tab) 40 mg PO HS [facility] Stop: 04/15/21 20:59 Last Admin: 03/17/21 20:58 Dose: Not Given Documented by: Dextrose (Dextrose 50% 50 Ml Syringe) 25 - 50 ml IV UD PRN; Protocol PRN Reason: Hypoglycemia Protocol Stop: 04/10/21 21:30 Furosemide (Furosemide 40 Mg Tab) 40 mg PO QAM [facility] Stop: 04/16/21 08:59 Last Admin: 03/18/21 09:10 Dose: 40 mg Documented by: Glucagon (Glucagon For Inj 1 Mg Vial) 1 mg SQ UD PRN; Protocol PRN Reason: Hypoglycemia Protocol Stop: 04/10/21 21:30 Glucose (Glucose 10 Tabs/Tube) 4 - 8 tabs PO UD PRN; Protocol PRN Reason: Hypoglycemia Protocol Stop: 04/10/21 21:30 Glucose (Glucose 40% Gel 15 Gm Tube) 15 - 30 gm PO UD PRN; Protocol PRN Reason: Hypoglycemia Protocol Stop: 04/10/21 21:30 Heparin Sodium/Dextrose (Heparin Sodium/Dextrose) 25,000 units in 500 mls @ 25 mls/hr IV .Q20H [facility]; Protocol Stop: 04/10/21 03:59 Last Admin: 03/18/21 09:08 Dose: 1,150 units/hr, 23 mls/hr Documented by: Insulin Aspart (Insulin Aspart 100 Units/Ml 3 Ml Pen) 0 units SC ACHS [facility] Stop: 04/11/21 07:29 Last Admin: 03/18/21 09:09 Dose: Not Given Documented by: Levothyroxine Sodium (Levothyroxine Sodium 75 Mcg Tablet) 75 mcg PO DAILYBB [facility] Stop: 04/11/21 06:29 Last Admin: 03/18/21 06:25 Dose: 75 mcg Documented by: Metoprolol Tartrate (Metoprolol Tartrate 25 Mg Tab) 12.5 mg PO BID [facility] Stop: 04/12/21 20:59 Last Admin: 03/18/21 09:10 Dose: 12.5 mg Documented by: Miscellaneous (Carbohydrates For Hypoglycemia ) 15 - 30 gm PO UD PRN PRN Reason: Hypoglycemia Protocol Stop: 04/10/21 21:30 Oxycodone/Acetaminophen (Oxycodone/Acetaminophen 5mg/325mg Tab) 1 - 2 tab PO Q4H PRN PRN Reason: Moderate Pain Stop: 03/26/21 19:15 Last Admin: 03/13/21 09:30 Dose: 1 tab Documented by: Polyethylene Glycol (Polyethylene (Miralax) 17 Gm Pack) 17 gm PO DAILY PRN PRN Reason: Constipation Stop: 04/10/21 07:30 Warfarin Sodium (Warfarin Sod 5 Mg Tab) 5 mg PO DAILY@1600 [facility] Stop: 04/14/21 15:59 Last Admin: 03/17/21 15:09 Dose: 5 mg Documented by:
--- NOTE | 2021-03-18 13:55 | Nephrology Progress Note ---
Date of Service March 18, 2021 Assessment & Plan Admission and Anticipated Discharge Date Admission Date: March 11, 2021 Subjective Assessment & Plan Admission and Anticipated Discharge Date Admission Date: March 11, 2021 Subjective Subjective Assessment & Plan (1) Acute decompensated heart failure: new onset LV dysfunction 25% EF w/ LAD WMA -cont strict I/O, daily STANDING wt, <2 gm daily Na diet ordered -Stop Iv lasix. use lasix 40 mg po daily from now. Seems Enough Diuresed for now. (2) Acute kidney injury superimposed on chronic kidney disease: Plan: baseline creatinine 1.4-1.5; at baseline as recently as 03/01/21. chemistries acceptable; volume overload improving but w/ new onset systolic heart failure nonoliguric stage 1 ERICK on CKD3a; was 2.2 on presentation 03/11 and uptrended fast to peak at 2.9 03/12-. Creat about same for last few days. Also he appears he has been diuresed enough. urine sediment c/w ATNl. ischemic ATN in setting of new onset LV function and a fib can be discharged from renal standpoint and will follow in clinic. Discharge on lasix 40 daily Anemia--On chronic Retacrit 23393 units weekly outpt through hematology Subjective no acute interval events. No SOB and no edema. making urine--no issues there. Review of Systems Review of Systems: All systems reviewed & are unremarkable except as noted in Subjective Physical Exam Constitutional: well developed, well nourished, cooperative and + overweight; no acute distress Eyes: EOM intact bilaterally ENMT: Ears: no external ear abnormality Nose: no external nose abnormality Mouth: + dry oral mucous membranes Neck: no nuchal rigidity Respiratory: normal respiratory effort and able to speak in complete sentences Auscultation: + diminished lung sounds Cardiovascular: Rate/Rhythm: regular rate and regular rhythm Extremities: no edema Gastrointestinal (Abdomen): Inspection/Auscultation: normal bowel sounds Percussion/Palpation: abdomen soft; abdomen nontender Musculoskeletal: Extremities: strength 5/5 throughout Skin: no rashes, warm and dry Neurologic: carr[place], fluent speech, no tremor Psychiatric: Orientation: oriented x 3 Results & Data ([facility]) Vital Signs (Past 12 Hours) Vital Signs Temp Pulse Resp BP Pulse Ox 03/18/21 11:19 36.8 C 59 L 18 107/64 99 10/07/21 07:50 36.8 C 61 17 121/72 96 03/18/21 04:00 36.7 C 74 20 113/72 96
[2021-03-18 14:37] LABS: Partial Thromboplastin Ratio 2.4
[2021-03-18 14:54] LABS: Partial Thromboplastin Time 63.2 Seconds (21.0-31.0)
--- NOTE | 2021-03-18 15:38 | Hospitalist Progress Note ---
Date of Service March 18, 2021 Assessment & Plan (1) Acute respiratory failure: (2) Bilateral pleural effusion: (3) NSTEMI (non-ST elevated myocardial infarction): (4) Acute decompensated heart failure: Plan: Patient is a 80 yr male with H/O CLL, low-grade myelodysplastic syndrome, HTN, moderate aortic stenosis, HTN, LBBB, CKD III and other medical problems listed below who presents with fevers, chills and shortness of breath x 1 week. Acute Systolic/Diastolic CHF Exacerbation B/L Pleural Effusion S/P thoracentesis Acute respiratory failure with hypoxia-POA resolved -CXR:Cardiomegaly with pulmonary edema and layering pleural effusions. Right perihilar and right lung base predominant airspace opacities. Superimposed pneumonia would be difficult to exclude. -ECHO:new onset severe left ventricular systolic dysfunction, ejection fraction 20-25%, grade 2 diastolic dysfunction. Moderate mitral regurgitation. -IV diuretics transitioned to PO Saturating well on room air Appreciate cardiology, pulmonology, Nephrology Input Continue lasix 40mg daily Planned for repeat ECHO today NSTEMI Elevated Troponin Conservative management Continue aspirin, metoprolol, statin Cardiology on board Needs follow-up with cardiology upon discharge (5) Atrial fibrillation with RVR: Plan: New onset A fib with RVR Continue amiodarone, metoprolol Continue IV heparin until INR is therapeutic Continue Coumadin Monitor INR: 1.4>1.8 Appreciate Cardiology input Needs follow-up with Coumadin clinic upon discharge (6) Embolism, arterial, leg, left: Plan: Patient had thromboembolic event on 03/12/2021 with acute onset left leg paresthesia. In the setting of NSTEMI, new acute systolic heart failure with EF of 20 to 25% A. fib with RVR. Had thrombectomy by vascular surgeon on 03/12/21 Based on vascular surgeons report, likely still has residual thrombus that could not be addressed. We will continue medical management with anticoagulation and antiplatelet. Needs follow-up with vascular surgery in 2 weeks upon discharge Continue Coumadin. Aspirin (7) Acute kidney injury superimposed on chronic kidney disease: Plan: Baseline ~ 1.5 In setting of decompensated heart failure, NSTEMI Cr:2.3 Appreciate Nephrology Input Monitor renal function Needs follow-up with nephrology upon discharge (8) Leukocytosis: Plan: As per Prior hospitalist Leukocytosis resolved Lactate initially 3.9 --> 1.8, procalcitonin initially wnl --> 1.45 CXR also showing right perihilar and right lung base predominant airspace opacities. Superimposed pneumonia would be difficult to exclude UA 1+ leuk esterase, no urine bacteria Was initially started on empiric Zosyn, transitioned to Rocephin Blood and urine cultures negative. Antibiotics were discontinued (9) HTN (hypertension): Plan: BP relatively low Amlodipine on hold, plan to discontinue on discharge as well (10) Aortic stenosis: Plan: Known moderate aortic stenosis (11) CLL (chronic lymphocytic leukemia): Plan: Previously received oncology care in [place], received treatment once for this (immunotherapy) in 2012 and remains in remission Currently follows with Dr. Armenta (12) Anemia in CKD (chronic kidney disease): Plan: on Procrit Stable in 9-10s Received Procrit (13) HAWA (obstructive sleep apnea): Plan: CPAP HS DVT Px: IV heparin, Coumadin Code status: FULL CODE Admission and Anticipated Discharge Date Admission Date: March 11, 2021 Subjective Patient is seen and examined at bedside Left heel soreness better today No new complaints Denies chest pain, shortness of breath, dizziness, nausea, abdominal pain Eager to get discharged Review of Systems Review of Systems: All systems reviewed & are unremarkable except as noted in Subjective Physical Exam Physical Exam: Physical Exam: Vitals signs as noted above General Appearance:Moderately built and nourished, no apparent distress Head: normocephalic, Atraumatic Eyes: normal inspection, EOMI Neck: supple, Trachea midline Respiratory/Chest: Normal breath sounds, CTA Cardiovascular: S1, S2, + murmur Abdomen/GI:Soft, Non tender, Bowel sounds present Extremities/Musculoskeletal:normal inspection, no edema Neurologic/Psych:AAOX3, grossly no focal neurological deficits Skin: normal color, warm Results & Data Results & Data ([facility]) Vital Signs (Past 12 Hours) Vital Signs Temp Pulse Resp BP Pulse Ox 03/18/21 11:19 36.8 C 59 L 18 107/64 99 03/18/21 07:50 36.8 C 61 17 121/72 96 03/18/21 04:00 36.7 C 74 20 113/72 96 Laboratory Results Short CBC 03/18/21 Range/Units 05:47 Hgb 10.0 L (14.0-18.0) g/dL Hct 29.7 L (42-52) % [facility] 03/18/21 05:47 Sodium 138 Potassium 3.9 Chloride 103 Carbon Dioxide 29 BUN 56 H Creatinine 2.35 H Glucose 113 H Calcium 8.8
[2021-03-18] MEDS: WARFARIN SOD 5 MG TAB PO SCH (17:05)
[2021-03-18] MEDS: ATORVASTATIN 40 MG TAB PO SCH (21:01)
[2021-03-19] MEDS: HEPARIN SODIUM/DEXTROSE 25,000 UNITS/500 ML BAG IV SCH (06:12)
[2021-03-19] MEDS: LEVOTHYROXINE SODIUM 75 MCG TABLET PO SCH (06:13)
[2021-03-19 08:02] LABS: Hemoglobin 9.8 g/dL (14.0-18.0); Mean Corpuscular Hgb Conc 33.8 g/dL (32-36); Mean Corpuscular Volume 103.6 fL (80-100); Mean Platelet Volume 9.6 fL (7.4-10.4); Platelet Count 379 K/uL (130-400); RDW Coefficient of Variation 16.3 % (11.5-14.5); RDW Standard Deviation 59.9 fL (36.4-46.3); White Blood Count 6.66 K/uL (4.8-10.8)
[2021-03-19 08:29] LABS: BUN Creatinine Ratio 21.3 (10-20); Calcium 8.7 mg/dl (8.5-10.1); Creatinine Clr Calc Pharmacy 25.9 ml/min; Est GFR (African American) 29.2 ml/min; Est GFR (Non-African American) 25.2 ml/min; Potassium 3.9 mmol/L (3.5-5.1)
[2021-03-19 08:30] LABS: INR 1.9 (0.9-1.1); Partial Thromboplastin Ratio 2.6; Prothrombin Time 18.4 Seconds (9.0-12.0)
[2021-03-19] MEDS: INSULIN ASPART 100 UNITS/ML 3 ML PEN SC SCH ×4 (09:05→21:22)
[2021-03-19] MEDS: FUROSEMIDE 40 MG TAB PO SCH (09:06)
[2021-03-19] MEDS: AMIODARONE 200 MG TAB PO SCH ×2 (09:06→20:20)
[2021-03-19] MEDS: METOPROLOL TARTRATE 25 MG TAB PO SCH ×2 (09:06→20:20)
[2021-03-19] MEDS: ASPIRIN 81 MG ECTAB PO SCH (09:06)
--- NOTE | 2021-03-19 11:54 | Cardiology Progress Note ---
Date of Service March 19, 2021 Assessment & Plan (1) NSTEMI (non-ST elevated myocardial infarction): (2) Acute decompensated heart failure: (3) Atrial fibrillation with RVR: (4) Embolism, arterial, leg, left: (5) Acute kidney injury superimposed on chronic kidney disease: (6) Ventricular tachycardia: Plan: Patient volume status and renal function stable. Creatinine remains stable over the last few days. IV furosemide discontinued, transitioned to oral furosemide and tolerating Patient had episode of non sustained VT 2 nights ago. No recurrence. He was asymptomatic. Continue amiodarone and metoprolol. Repeat echo reveals severely reduced LVEF at 25-30% We discussed use of ZOLL lifevest defib upon leaving the hospital due to risk of arrhythmia and SCD. He is agreeable. This will be arranged. Status post bilateral thoracentesis performed 03/12/2021 with transudate of fluid. Volume status stable. Amlodipine on hold due to hypotension. Likely will not need on discharge. Continue low-dose aspirin and IV heparin infusion until INR 2-3. Continue Coumadin. INR 1.9 today. will need close f/u with anticoagulation clinic. Further management of left lower extremity arterial embolism as per vascular surgery. No further intervention required per noes this morning. Will f/u in their office in 2 weeks for staple removal. Case discussed with Dr. White. Likely to be discharged tomorrow Admission and Anticipated Discharge Date Admission Date: March 11, 2021 Supervising Physician Co-Signing Physician Notes Patient seen and examined at the bedside. No complaints today. INR remains subtherapeutic at 1.9. Creatinine stable. Intravenous diuretics discontinued. Tolerating p.o. Lasix daily. Left-sided foot pain on change. No skin breakdown or ulceration. PE: VSS. Gen: NAD, AAOx3. Heart: Regular rhythm, normal S1-S2, no murmur. Lungs: Clear bilateral, no rales rhonchi or wheeze. Extremities: Left foot is cool to touch. No skin breakdown or ulceration. Agree with above PA-C history, physical exam, assessment and plan. INR subtherapeutic today, 1.9. Dose warfarin for goal INR 2.0-3.0. Indication for Coumadin discussed at length. All questions answered to patient satisfaction. Repeat echocardiogram performed 03/18/2021 demonstrates a minimal improvement of LV systolic function. Septum no longer appears dyskinetic. Discussed risk versus benefit of short-term external defibrillator. Patient agreed to proceed with 'Lifevest'. Continue amiodarone 200 mg twice daily for an additional week post discharge then reduce dose to 200 mg once daily. Continue other cardiovascular medications as previously ordered. Subjective Patient feeling well this morning. INR 1.9. He is frustrated that he can't go home today, but understands. He denies chest pain or SOB. No dizziness. No palpitations. No orthopnea, PND or edema. No foot pain reported. Review of Systems Review of Systems: All systems reviewed & are unremarkable except as noted in HPI & below Physical Exam Constitutional: WD/WN, vitals as above Eyes: PERRL, conjunctivae normal, anicteric sclerae ENMT: external ear and nose normal, oropharynx normal Neck: trachea midline, no thyromegaly Respiratory: normal respiratory effort, lungs clear to auscultation Cardiovascular: RRR, no murmur, no edema Rate/Rhythm: regular rate and regular rhythm Heart Sounds: + murmur (II/ systolic murmur Left and Right SB) Vessels: no JVD Extremities: normal capillary refill (left foot warm to touch, cool toes); no edema Gastrointestinal (Abdomen): normal bowel sounds, soft, nontender, no hepatosplenomegaly Musculoskeletal: no cyanosis or clubbing, extremities motor strength 5/5 Skin: no rashes, warm and dry Neurologic: PERRL, EOMI, accommodation nl, no face palsy, no dysarthria Psychiatric: A+Ox3, euthymic affect Results & Data ([facility]) Vital Signs (Past 12 Hours) Vital Signs Temp Pulse Pulse Resp BP Pulse Ox 03/19/21 08:16 36.8 C 63 14 111/70 98 03/19/21 03:23 36.7 C 63 16 108/67 99 03/19/21 00:00 65 Laboratory Results 03/19/21 03/19/21 03/19/21 Range/Units 11:14 07:22 07:22 WBC (4.8-10.8) K/uL RBC (4.7-6.1) M/uL Hgb (14.0-18.0) g/dL Hct (42-52) % MCV (80-100) fL MCH (25-34) pg MCHC (32-36) g/dL RDW Std Deviation (36.4-46.3) fL RDW Coeff of Geovanni (11.5-14.5) % Plt Count (130-400) K/uL MPV (7.4-10.4) fL PT 18.4 H (9.0-12.0) Seconds INR 1.9 H (0.9-1.1) APTT 68.0 H* (21.0-31.0) Seconds PTT Ratio 2.6 Sodium (136-145) mmol/L Potassium (3.5-5.1) mmol/L Chloride (98-107) mmol/L Carbon Dioxide (21-32) mmol/L Anion Gap (3-11) BUN (7-18) mg/dl Creatinine (0.6-1.4) mg/dl Est Cr Clr Drug Dosing ml/min Est GFR ( Amer) ml/min Est GFR (Non-Af Amer) ml/min BUN/Creatinine Ratio (10-20) Glucose (70-99) mg/dl POC Glucose 139 H 124 H (70-99) mg/dl Calcium (8.5-10.1) mg/dl 03/19/21 03/19/21 03/18/21 Range/Units 07:22 07:22 20:39 WBC 6.66 (4.8-10.8) K/uL RBC 2.80 L (4.7-6.1) M/uL Hgb 9.8 L (14.0-18.0) g/dL Hct 29.0 L (42-52) % MCV 103.6 H (80-100) fL MCH 35.0 H (25-34) pg MCHC 33.8 (32-36) g/dL RDW Std Deviation 59.9 H (36.4-46.3) fL RDW Coeff of Geovanni 16.3 H (11.5-14.5) % Plt Count 379 (130-400) K/uL MPV 9.6 (7.4-10.4) fL PT (9.0-12.0) Seconds INR (0.9-1.1) APTT (21.0-31.0) Seconds PTT Ratio Sodium 137 (136-145) mmol/L Potassium 3.9 (3.5-5.1) mmol/L Chloride 104 (98-107) mmol/L Carbon Dioxide 28 (21-32) mmol/L Anion Gap 5.0 (3-11) BUN 50 H (7-18) mg/dl Creatinine 2.36 H (0.6-1.4) mg/dl Est Cr Clr Drug Dosing 25.9 ml/min Est GFR ( Amer) 29.2 ml/min Est GFR (Non-Af Amer) 25.2 ml/min BUN/Creatinine Ratio 21.3 H (10-20) Glucose 110 H (70-99) mg/dl POC Glucose 125 H (70-99) mg/dl Calcium 8.7 (8.5-10.1) mg/dl 03/18/21 03/18/21 Range/Units 15:58 14:04 WBC (4.8-10.8) K/uL RBC (4.7-6.1) M/uL Hgb (14.0-18.0) g/dL Hct (42-52) % MCV (80-100) fL MCH (25-34) pg MCHC (32-36) g/dL RDW Std Deviation (36.4-46.3) fL RDW Coeff of Geovanni (11.5-14.5) % Plt Count (130-400) K/uL MPV (7.4-10.4) fL PT (9.0-12.0) Seconds INR (0.9-1.1) APTT 63.2 H* (21.0-31.0) Seconds PTT Ratio 2.4 Sodium (136-145) mmol/L Potassium (3.5-5.1) mmol/L Chloride (98-107) mmol/L Carbon Dioxide (21-32) mmol/L Anion Gap (3-11) BUN (7-18) mg/dl Creatinine (0.6-1.4) mg/dl Est Cr Clr Drug Dosing ml/min Est GFR ( Amer) ml/min Est GFR (Non-Af Amer) ml/min BUN/Creatinine Ratio (10-20) Glucose (70-99) mg/dl POC Glucose 117 H (70-99) mg/dl Calcium (8.5-10.1) mg/dl Diagnostic Findings Telemetry reviewed - NSR with conduction delay, no recurrent non sustained VT in the last 24 hours. Repeat echo report reviewed Severely reduced LVEF at 25-30% Medications Administered Current Inpatient Medications Acetaminophen (Acetaminophen 325 Mg Tab) 650 mg PO Q4H PRN PRN Reason: Pain or Fever Stop: 04/10/21 07:30 Amiodarone HCl (Amiodarone 200 Mg Tab) 200 mg PO BID ABAD Stop: 04/16/21 20:59 Last Admin: 03/19/21 09:06 Dose: 200 mg Documented by: Amlodipine Besylate (Amlodipine Besylate 5 Mg Tab) 2.5 mg PO DAILY ABAD Stop: 04/10/21 08:59 Last Admin: 03/12/21 08:26 Dose: 2.5 mg Documented by: Aspirin (Aspirin 81 Mg Ectab) 81 mg PO QAM ABAD Stop: 04/11/21 08:59 Last Admin: 03/19/21 09:06 Dose: 81 mg Documented by: Atorvastatin Calcium (Atorvastatin 40 Mg Tab) 40 mg PO HS [facility] Stop: 04/15/21 20:59 Last Admin: 03/18/21 21:01 Dose: 40 mg Documented by: Dextrose (Dextrose 50% 50 Ml Syringe) 25 - 50 ml IV UD PRN; Protocol PRN Reason: Hypoglycemia Protocol Stop: 04/10/21 21:30 Furosemide (Furosemide 40 Mg Tab) 40 mg PO QAM [facility] Stop: 04/16/21 08:59 Last Admin: 03/19/21 09:06 Dose: 40 mg Documented by: Glucagon (Glucagon For Inj 1 Mg Vial) 1 mg SQ UD PRN; Protocol PRN Reason: Hypoglycemia Protocol Stop: 04/10/21 21:30 Glucose (Glucose 10 Tabs/Tube) 4 - 8 tabs PO UD PRN; Protocol PRN Reason: Hypoglycemia Protocol Stop: 04/10/21 21:30 Glucose (Glucose 40% Gel 15 Gm Tube) 15 - 30 gm PO UD PRN; Protocol PRN Reason: Hypoglycemia Protocol Stop: 04/10/21 21:30 Heparin Sodium/Dextrose (Heparin Sodium/Dextrose) 25,000 units in 500 mls @ 25 mls/hr IV .Q20H ABAD; Protocol Stop: 04/10/21 03:59 Last Titration: 03/19/21 09:45 Dose: 1,050 units/hr, 21 mls/hr Documented by: Insulin Aspart (Insulin Aspart 100 Units/Ml 3 Ml Pen) 0 units SC ACHS [facility] Stop: 04/11/21 07:29 Last Admin: 03/19/21 11:34 Dose: Not Given Documented by: Levothyroxine Sodium (Levothyroxine Sodium 75 Mcg Tablet) 75 mcg PO DAILYBB [facility] Stop: 04/11/21 06:29 Last Admin: 03/19/21 06:13 Dose: 75 mcg Documented by: Metoprolol Tartrate (Metoprolol Tartrate 25 Mg Tab) 12.5 mg PO BID [facility] Stop: 04/12/21 20:59 Last Admin: 03/19/21 09:06 Dose: 12.5 mg Documented by: Miscellaneous (Carbohydrates For Hypoglycemia ) 15 - 30 gm PO UD PRN PRN Reason: Hypoglycemia Protocol Stop: 04/10/21 21:30 Oxycodone/Acetaminophen (Oxycodone/Acetaminophen 5mg/325mg Tab) 1 - 2 tab PO Q4H PRN PRN Reason: Moderate Pain Stop: 03/26/21 19:15 Last Admin: 03/13/21 09:30 Dose: 1 tab Documented by: Polyethylene Glycol (Polyethylene (Miralax) 17 Gm Pack) 17 gm PO DAILY PRN PRN Reason: Constipation Stop: 04/10/21 07:30 Warfarin Sodium (Warfarin Sod 5 Mg Tab) 5 mg PO DAILY@1600 [facility] Stop: 04/14/21 15:59 Last Admin: 03/18/21 17:05 Dose: 5 mg Documented by:
[2021-03-19 14:40] LABS: Partial Thromboplastin Ratio 2.4
[2021-03-19 14:42] LABS: Partial Thromboplastin Time 63.5 Seconds (21.0-31.0)
[2021-03-19] MEDS: WARFARIN SOD 5 MG TAB PO SCH (16:42)
--- NOTE | 2021-03-19 16:47 | Hospitalist Progress Note ---
Date of Service March 19, 2021 Assessment & Plan (1) Acute respiratory failure: (2) Bilateral pleural effusion: (3) NSTEMI (non-ST elevated myocardial infarction): (4) Acute decompensated heart failure: Plan: Patient is a 80 yr male with H/O CLL, low-grade myelodysplastic syndrome, HTN, moderate aortic stenosis, HTN, LBBB, CKD III and other medical problems listed below who presents with fevers, chills and shortness of breath x 1 week. Acute Systolic/Diastolic CHF Exacerbation B/L Pleural Effusion S/P thoracentesis Acute respiratory failure with hypoxia-POA resolved -CXR:Cardiomegaly with pulmonary edema and layering pleural effusions. Right perihilar and right lung base predominant airspace opacities. Superimposed pneumonia would be difficult to exclude. -ECHO:new onset severe left ventricular systolic dysfunction, ejection fraction 20-25%, grade 2 diastolic dysfunction. Moderate mitral regurgitation. -IV diuretics transitioned to PO Saturating well on room air Appreciate cardiology, pulmonology, Nephrology Input Continue lasix 40mg daily Repeat ECHO showed minimal improvement of left ventricle systolic function and septum no longer appears dyskinetic. Needs LifeVest arranged prior to discharge Needs follow-up with cardiology upon discharge NSTEMI Elevated Troponin Conservative management Continue aspirin, metoprolol, statin Cardiology on board (5) Atrial fibrillation with RVR: Plan: New onset A fib with RVR Continue amiodarone, metoprolol Continue IV heparin until INR is therapeutic Continue Coumadin Monitor INR: 1.4>1.8>1.9 Appreciate Cardiology input Needs follow-up with Coumadin clinic upon discharge Plan to continue amiodarone 200 mg twice a day for 1 week and then decrease to 200 mg daily (6) Embolism, arterial, leg, left: Plan: Patient had thromboembolic event on 03/12/2021 with acute onset left leg paresthesia. In the setting of NSTEMI, new acute systolic heart failure with EF of 20 to 25% A. fib with RVR. Had thrombectomy by vascular surgeon on 03/12/21 Based on vascular surgeons report, likely still has residual thrombus that could not be addressed. We will continue medical management with anticoagulation and antiplatelet. Needs follow-up with vascular surgery in 2 weeks upon discharge Continue Coumadin. Aspirin (7) Acute kidney injury superimposed on chronic kidney disease: Plan: Baseline ~ 1.5 In setting of decompensated heart failure, NSTEMI Cr:2.3 Appreciate Nephrology Input Monitor renal function Needs follow-up with nephrology upon discharge (8) Leukocytosis: Plan: As per Prior hospitalist Leukocytosis resolved Lactate initially 3.9 --> 1.8, procalcitonin initially wnl --> 1.45 CXR also showing right perihilar and right lung base predominant airspace opacities. Superimposed pneumonia would be difficult to exclude UA 1+ leuk esterase, no urine bacteria Was initially started on empiric Zosyn, transitioned to Rocephin Blood and urine cultures negative. Antibiotics were discontinued (9) HTN (hypertension): Plan: BP relatively low Amlodipine on hold, plan to discontinue on discharge as well (10) Aortic stenosis: Plan: Known moderate aortic stenosis (11) CLL (chronic lymphocytic leukemia): Plan: Previously received oncology care in [place], received treatment once for this (immunotherapy) in 2012 and remains in remission Currently follows with Dr. Armenta (12) Anemia in CKD (chronic kidney disease): Plan: on Procrit Stable in 9-10s Received Procrit (13) HAWA (obstructive sleep apnea): Plan: CPAP HS DVT Px: IV heparin, Coumadin Code status: FULL CODE Admission and Anticipated Discharge Date Admission Date: March 11, 2021 Subjective Patient is seen and examined at bedside States feeling well today No new complaints Discussed with Cardiology today Denies chest pain, shortness of breath, dizziness, nausea, abdominal pain INR 1.9 today Review of Systems Review of Systems: All systems reviewed & are unremarkable except as noted in Subjective Physical Exam Physical Exam: Physical Exam: Vitals signs as noted above General Appearance:Moderately built and nourished, no apparent distress Head: normocephalic, Atraumatic Eyes: normal inspection, EOMI Neck: supple, Trachea midline Respiratory/Chest: Normal breath sounds, CTA Cardiovascular: S1, S2, + murmur Abdomen/GI:Soft, Non tender, Bowel sounds present Extremities/Musculoskeletal:normal inspection, no edema Neurologic/Psych:AAOX3, grossly no focal neurological deficits Skin: normal color, warm Results & Data Results & Data ([facility]) Vital Signs (Past 12 Hours) Vital Signs Temp Pulse Pulse Resp BP Pulse Ox 03/19/21 15:20 62 03/19/21 15:10 36.7 C 64 20 111/71 96 03/19/21 12:06 36.3 C L 65 17 118/74 99 03/19/21 08:16 36.8 C 63 14 111/70 98 Laboratory Results Short CBC 03/19/21 Range/Units 07:22 WBC 6.66 (4.8-10.8) K/uL Hgb 9.8 L (14.0-18.0) g/dL Hct 29.0 L (42-52) % Plt Count 379 (130-400) K/uL BMP 03/19/21 07:22 Sodium 137 Potassium 3.9 Chloride 104 Carbon Dioxide 28 BUN 50 H Creatinine 2.36 H Glucose 110 H Calcium 8.7
[2021-03-19] MEDS: ATORVASTATIN 40 MG TAB PO SCH (20:20)
[2021-03-20] MEDS: LEVOTHYROXINE SODIUM 75 MCG TABLET PO SCH (05:34)
[2021-03-20] MEDS: HEPARIN SODIUM/DEXTROSE 25,000 UNITS/500 ML BAG IV SCH (05:34)
[2021-03-20 06:47] LABS: Hematocrit (blood only) 29.1 % (42-52); Hemoglobin 9.8 g/dL (14.0-18.0)
[2021-03-20 07:15] LABS: BUN Creatinine Ratio 20.2 (10-20); Calcium 8.7 mg/dl (8.5-10.1); Creatinine Clr Calc Pharmacy 25.3 ml/min; Est GFR (African American) 28.4 ml/min; Est GFR (Non-African American) 24.5 ml/min; Potassium 4.3 mmol/L (3.5-5.1)
[2021-03-20 07:20] LABS: INR 2.8 (0.9-1.1); Partial Thromboplastin Ratio 2.7; Prothrombin Time 26.1 Seconds (9.0-12.0)
[2021-03-20 07:23] LABS: Partial Thromboplastin Time 71.8 Seconds (21.0-31.0)
[2021-03-20] MEDS: AMIODARONE 200 MG TAB PO SCH (08:15)
[2021-03-20] MEDS: METOPROLOL TARTRATE 25 MG TAB PO SCH (08:15)
[2021-03-20] MEDS: ASPIRIN 81 MG ECTAB PO SCH (08:15)
[2021-03-20] MEDS: FUROSEMIDE 40 MG TAB PO SCH (08:15)
[2021-03-20] MEDS: INSULIN ASPART 100 UNITS/ML 3 ML PEN SC SCH ×2 (09:33→13:04)
--- NOTE | 2021-03-20 11:51 | Hospitalist Progress Note ---
Date of Service March 20, 2021 Assessment & Plan (1) Acute respiratory failure: (2) Bilateral pleural effusion: (3) NSTEMI (non-ST elevated myocardial infarction): (4) Acute decompensated heart failure: Plan: Patient is a 80 yr male with H/O CLL, low-grade myelodysplastic syndrome, HTN, moderate aortic stenosis, HTN, LBBB, CKD III and other medical problems listed below who presents with fevers, chills and shortness of breath x 1 week. Acute Systolic/Diastolic CHF Exacerbation B/L Pleural Effusion S/P thoracentesis Acute respiratory failure with hypoxia-POA resolved -CXR:Cardiomegaly with pulmonary edema and layering pleural effusions. Right perihilar and right lung base predominant airspace opacities. Superimposed pneumonia would be difficult to exclude. -ECHO:new onset severe left ventricular systolic dysfunction, ejection fraction 20-25%, grade 2 diastolic dysfunction. Moderate mitral regurgitation. -IV diuretics transitioned to PO Saturating well on room air Appreciate cardiology, pulmonology, Nephrology Input Continue lasix 40mg daily Repeat ECHO showed minimal improvement of left ventricle systolic function and septum no longer appears dyskinetic. Plan to discharge today once LifeVest arranged Needs follow-up with cardiology upon discharge NSTEMI Elevated Troponin Conservative management Continue aspirin, metoprolol, statin Cardiology on board (5) Atrial fibrillation with RVR: Plan: New onset A fib with RVR Continue amiodarone, metoprolol IV heparin discontinued Continue Coumadin Monitor INR: 1.4>1.8>1.9>2.8 Appreciate Cardiology input Needs follow-up with Coumadin clinic upon discharge Plan to continue amiodarone 200 mg twice a day for 1 week and then decrease to 200 mg daily (6) Embolism, arterial, leg, left: Plan: Patient had thromboembolic event on 03/12/2021 with acute onset left leg paresthesia. In the setting of NSTEMI, new acute systolic heart failure with EF of 20 to 25% A. fib with RVR. Had thrombectomy by vascular surgeon on 03/12/21 Based on vascular surgeons report, likely still has residual thrombus that could not be addressed. We will continue medical management with anticoagulation and antiplatelet. Needs follow-up with vascular surgery in 2 weeks upon discharge Continue Coumadin. Aspirin (7) Acute kidney injury superimposed on chronic kidney disease: Plan: Baseline ~ 1.5 In setting of decompensated heart failure, NSTEMI Cr:2.4 Appreciate Nephrology Input Monitor renal function Needs follow-up with nephrology upon discharge (8) Leukocytosis: Plan: As per Prior hospitalist Leukocytosis resolved Lactate initially 3.9 --> 1.8, procalcitonin initially wnl --> 1.45 CXR also showing right perihilar and right lung base predominant airspace opacities. Superimposed pneumonia would be difficult to exclude UA 1+ leuk esterase, no urine bacteria Was initially started on empiric Zosyn, transitioned to Rocephin Blood and urine cultures negative. Antibiotics were discontinued (9) HTN (hypertension): Plan: BP relatively low Amlodipine on hold, plan to discontinue on discharge as well (10) Aortic stenosis: Plan: Known moderate aortic stenosis (11) CLL (chronic lymphocytic leukemia): Plan: Previously received oncology care in [place], received treatment once for this (immunotherapy) in 2012 and remains in remission Currently follows with Dr. Armenta (12) Anemia in CKD (chronic kidney disease): Plan: on Procrit Stable in 9-10s Received Procrit (13) HAWA (obstructive sleep apnea): Plan: CPAP HS DVT Px: Coumadin Code status: FULL CODE Admission and Anticipated Discharge Date Admission Date: March 11, 2021 Subjective Patient is seen and examined at bedside No new complaints Eager to get discharged Denies chest pain, shortness of breath, dizziness, nausea, abdominal pain INR 2.8 today Review of Systems Review of Systems: All systems reviewed & are unremarkable except as noted in Subjective Physical Exam Physical Exam: Physical Exam: Vitals signs as noted above General Appearance:Moderately built and nourished, no apparent distress Head: normocephalic, Atraumatic Eyes: normal inspection, EOMI Neck: supple, Trachea midline Respiratory/Chest: Normal breath sounds, CTA Cardiovascular: S1, S2, + murmur Abdomen/GI:Soft, Non tender, Bowel sounds present Extremities/Musculoskeletal:normal inspection, no edema Neurologic/Psych:AAOX3, grossly no focal neurological deficits Skin: normal color, warm Results & Data Results & Data ([facility]) Vital Signs (Past 12 Hours) Vital Signs Temp Pulse Pulse Resp BP Pulse Ox 03/20/21 09:51 67 03/20/21 07:17 36.7 C 63 18 117/70 98 03/20/21 03:00 36.8 C 62 16 111/69 98 Laboratory Results Short CBC 03/20/21 Range/Units 06:28 Hgb 9.8 L (14.0-18.0) g/dL Hct 29.1 L (42-52) % BMP 03/20/21 06:28 Sodium 136 Potassium 4.3 Chloride 104 Carbon Dioxide 27 BUN 49 H Creatinine 2.42 H Glucose 113 H Calcium 8.7
--- NOTE | 2021-03-20 12:13 | Discharge Summary ---
Date of Service March 20, 2021 Admission HPI Per Admitting Provider Mr. Toledo is a 80-year-old man with a history of CLL and low-grade myelodysplastic syndrome. For the past 1 week he has been having fevers and chills with temperature running 100-100.3, worsening shortness of breath and dyspnea on exertion despite walking on flat ground. He denies any coughing, swelling or weight gain. He denies any night sweats. He reports getting his care most of the year in [place], and is also treated by [facility] oncology who recently gave him a flu vaccine and Procrit/Aranesp on 03/01. Per his son who is at bedside, assisting with the history, within 2 days of receiving these injec tions Mr. Toledo's current symptoms began. He adamantly denies any chest pain. Work-up reveals a white blood cell count of 35,000 and notably on outpatient lab work his white blood cell count was 13,000 yesterday. Prior to arrival EMS gave him 125 mg of Solu-Medrol and 1 DuoNeb with 1 mg Ativan IV. He is in normal sinus rhythm, H&H is 11/34 with an MCV of 110, platelets are 656. CHEM panel reveals a sodium of 138 potassium of 5.6 (with a hemolyzed sample), CO2 of 17, BUN 43, creatinine 2.2 with a baseline creatinine of 1.4-1.5. His glucose is elevated to 282 and he has no reported history of diabetes. This may be reflective of the Solu-Medrol given prior to arrival. AST mildly elevated at 64, ALT 74. Troponin elevated at 1.410 and SARS-CoV-2 PCR was negative. Pulmonary vascular congestion with pleural effusions bilaterally are present on chest x-ray per my interpretation. EKG is unavailable for viewing at this time. In the ER he was given a dose of Lasix 40 mg IV and placed on a heparin drip. A Anthony catheter was placed and he required BiPAP with settings 14/8. Admission Exam Per Admitting Provider Physical Exam Physical Exam: CONSTITUTIONAL: WNWD, vitals as above, generally ill- appearing, tachypneic on BIPAP EYES: PERRL, normal conjunctivae, no scleral icterus ENT: external ear and nose normal, BIPAP in place. NECK: trachea midline RESPIRATORY: clear to auscultation bilaterally, no crackles, rales or wheezes, increased respiratory effort. CARDIOVASCULAR: regular rate and rhythm, S1 and 2 heard without murmurs, gallops or rubs, no JVD, no peripheral edema GASTROINTESTINAL: soft, nontender, ND, no guarding MUSCULOSKELETAL: generalized weakness, head is normocephalic and atraumatic SKIN: warm and dry NEUROLOGIC: CN 2-12 grossly intact, normal cognition, normal speech, no tremor. No gross focal deficits. PSYCHIATRIC: alert cooperative and oriented to person, place and time. Principal Diagnosis Acute systolic and diastolic heart failure Non-ST segment elevation myocardial infarction Atrial fibrillation with rapid ventricular response Left leg embolism Acute kidney injury Discharge Data Allergies Allergy/AdvReac Type Severity Reaction Status Date / Time RYLEE Inhibitors AdvReac Intermediate Renal Verified 03/11/21 14:43 Complications Consultations 03/11/21 03:53 ED Decision to Admit Stat 03/11/21 05:30 Consult Cardiology Routine 03/12/21 06:05 Consult Pulmonology Routine 03/12/21 07:39 Consult Nephrology Routine 03/12/21 15:23 Consult Vascular Surgery Routine 03/12/21 19:16 Consult Pictures Editor Routine Procedures Performed Operation Date: 03/12/21 11:15 Actual Procedures p Thrombectomy Left Lower Extremity(Left) - Javier Crawford MD Ordered Studies 03/11/21 13:49 US renal/blad retro comp Routine 03/11/21 14:26 US effusion-chest/mediastinum Urgent 03/12/21 11:04 US point of care ultrasound Urgent Hospital Course (1) Acute respiratory failure: (2) Bilateral pleural effusion: (3) NSTEMI (non-ST elevated myocardial infarction): (4) Acute decompensated heart failure: Patient is a 80 yr male with H/O CLL, low-grade myelodysplastic syndrome, HTN, moderate aortic stenosis, HTN, LBBB, CKD III and other medical problems listed below who presents with fevers, chills and shortness of breath x 1 week. Acute Systolic/Diastolic CHF Exacerbation B/L Pleural Effusion S/P thoracentesis Acute respiratory failure with hypoxia-POA resolved -CXR:Cardiomegaly with pulmonary edema and layering pleural effusions. Right perihilar and right lung base predominant airspace opacities. Superimposed pneumonia would be difficult to exclude. -ECHO:new onset severe left ventricular systolic dysfunction, ejection fraction 20-25%, grade 2 diastolic dysfunction. Moderate mitral regurgitation. -IV diuretics transitioned to PO Saturating well on room air Appreciate cardiology, pulmonology, Nephrology Input Continue lasix 40mg daily Repeat ECHO showed minimal improvement of left ventricle systolic function and septum no longer appears dyskinetic. Plan to discharge today once LifeVest arranged Needs follow-up with cardiology upon discharge NSTEMI Elevated Troponin Conservative management Continue aspirin, metoprolol, statin Cardiology on board (5) Atrial fibrillation with RVR: New onset A fib with RVR Continue amiodarone, metoprolol IV heparin discontinued Continue Coumadin Monitor INR: 1.4>1.8>1.9>2.8 Appreciate Cardiology input Needs follow-up with Coumadin clinic upon discharge Plan to continue amiodarone 200 mg twice a day for 1 week and then decrease to 200 mg daily (6) Embolism, arterial, leg, left: Patient had thromboembolic event on 03/12/2021 with acute onset left leg paresthesia. In the setting of NSTEMI, new acute systolic heart failure with EF of 20 to 25% A. fib with RVR. Had thrombectomy by vascular surgeon on 03/12/21 Based on vascular surgeons report, likely still has residual thrombus that could not be addressed. We will continue medical management with anticoagulation and antiplatelet. Needs follow-up with vascular surgery in 2 weeks upon discharge Continue Coumadin. Aspirin (7) Acute kidney injury superimposed on chronic kidney disease: Baseline ~ 1.5 In setting of decompensated heart failure, NSTEMI Cr:2.4 Appreciate Nephrology Input Monitor renal function Needs follow-up with nephrology upon discharge (8) Leukocytosis: As per Prior hospitalist Leukocytosis resolved Lactate initially 3.9 --> 1.8, procalcitonin initially wnl --> 1.45 CXR also showing right perihilar and right lung base predominant airspace opacities. Superimposed pneumonia would be difficult to exclude UA 1+ leuk esterase, no urine bacteria Was initially started on empiric Zosyn, transitioned to Rocephin Blood and urine cultures negative. Antibiotics were discontinued (9) HTN (hypertension): BP relatively low Amlodipine on hold, plan to discontinue on discharge as well (10) Aortic stenosis: Known moderate aortic stenosis (11) CLL (chronic lymphocytic leukemia): Previously received oncology care in [place], received treatment once for this (immunotherapy) in 2012 and remains in remission Currently follows with Dr. Armenta (12) Anemia in CKD (chronic kidney disease): on Procrit Stable in 9-10s Received Procrit (13) HAWA (obstructive sleep apnea): CPAP HS DVT Px: Coumadin Code status: FULL CODE Total Time Total Time Spent Total Time Spent (In Minutes): 45 minutes Discharge Plan Discharge Items Patient Disposition: Home - Self-Care Reason For Visit: RESPIRATORY DISTRESS Discharge Diagnosis: Acute systolic and diastolic heart failure Non-ST segment elevation myocardial infarction Atrial fibrillation with rapid ventricular response Left leg embolism Acute kidney injury Activity: Per Instructions section Exercise/Sports: Wait until after follow-up appointment Non-emergency contact: Primary Care Provider, Surgeon, Emts and Service Vehicle Operator Call non-emergency contact if: you have any medication questions, your symptoms worsen, your pain is concerning for you and you have a fever Follow-up/Referrals: Arash White DO [Emts] - Javier Crawford MD [Physician] - 03/31/21 8:30 am Everton Healy DO [Outside Practitioners] - (Date & Time 03/23/2021 12:20 PM Provider Edgard Desai MD Department Family [facility] ) Zelalem Keyes MD [Physician] - (Date & Time 04/27/2021 9:00 AM Provider Zelalem Keyes MD Department Nephrology 2nd Floor, [place] If you would like to defer traveling to [place] for this appointment, please call to change this appointment type to a video appointment. [facility] does not have any openings until September) Diet: Heart Healthy and Low Sodium (2gm) Fluids: 1500ml (6 cups) Addtl Attending Provider Instructions: Follow-up with your primary care physician Dr. Everton Healy on 03/23/2021 12:20 PM as scheduled Follow-up with your needle valve operator in 1-2 weeks as advised. Office will call you with appointment. Follow-up with your vascular surgeon Dr. Crawford on 03/31/21 at 8:30 AM as scheduled Follow-up with your size cutter on 04/27/2021 9:00 AM as scheduled --Follow up with Coumadin Clinic on 03/22/21 for monitoring your PT/INR and adjusting your Coumadin dosing . (Office will Call you) Your Target INR is 2.0 to 3.0 Your INR is 2.8 today (03/20/21) --Take Coumadin 2mg today (03/20/21) and 2mg Tomorrow (03/20/21). Further dosing as per Coumadin Clinic. ----Take Amiodarone 200mg twice a day for 1 more week and then transition to 200 mg once daily as recommended by your needle valve operator. --Use LifeVest as recommended by your Emts. Seek immediate medical attention if your symptoms reoccur or worsen Please take all medications as instructed on discharge list below. Please call if you have any questions or problems. You can reach a [facility] hospitalist on duty at [facility] 24 hours a day by calling [phone] Home Care: * Take your medications exactly as directed. Don't skip doses. * Remember that recovery after a heart attack takes time. Plan to rest for at lease 4-8 weeks while you recover. Then return to normal activity when your doctor says it's okay. * Ask your doctor about joining a heart rehabilitation program. * Tell your doctor if you are feeling depressed. Feelings of sadness are common after a heart attack, but it is important that you speak to someone if you are feeling overwhelmed by these feelings. * If you are having chest pain, call 911 for an ambulance. Do NOT drive yourself to the hospital. * Ask your family members to learn CPR. * Learn to take your own blood pressure and pulse. Keep a record of your results. Ask your doctor when you should seek emergency medical attention. He or she will tell you which blood pressure reading is dangerous. Lifestyle Changes: * Maintain a healthy weight. Get help to lose any extra pounds. * Cut back on salt. * Limit canned, dried, packaged, and fast foods. * Don't add salt to your food. * Season foods with herbs instead of salt when you cook. * Break the smoking habit. Enroll in a stop-smoking program to improve your chances of success. * Limit fatty foods. * Ask your doctor about having your lipid levels checked regularly. * Build up your activity according to your doctor's recommendation. * Ask your doctor when it's okay to resume sexual activity. * Tell your doctor about any erectile dysfunction (ED) medication you are taking. Some ED medications are not safe if you take certain heart medications. * Try to manage stress. Follow Up: It is important for you to keep your follow up appointments with your medical provider. Call your Primary Care doctor if any of the following symptoms or problems start or get worse: * Shortness of breath or difficulty breathing * Wake up at night short of breath * Chest pain * Cough * Swelling of your hands, feet, or legs * More fatigued or tired with your normal activity * Palpitations - sudden fast heart beats WEIGHT * Weigh yourself every morning after using the bathroom. * Use the same scale. * Wear the same amount of clothing. * Write your weight down on a chart. * Call your Primary Care doctor if you gain more than 2-3 pounds in 1-2 days. MEDICATIONS * Use this discharge instruction sheet for medication instructions. * Take your medications at the time your doctor ordered. * Do not skip a dose of your medicines. * If you miss a dose of medicine, take it as soon as possible, but DO NOT DOUBLE A DOSE. * Read your medicine information when you get home. * Know all of the side effects of your medicine. If in doubt, ask your pharmacist * Call your Primary Care doctor's office if you have any side effects. * Be sure all of your doctors know what medicine and herbs you take (including cold, flu, and herbal medicine). Take the following with you to your follow-up doctor appointments: * Weight Chart * Medication List * List of questions Do not drink excessive alcohol, beer or wine. Pending Studies at Discharge: No Stand-Alone Forms: My [facility] [employer], Smoking Cessation Medications and DC Order Prescriptions: New amiodarone 200 mg Tablet 200 mg PO UD Qty: 60 RF: 0 furosemide 40 mg Tablet 40 mg PO QAM Qty: 30 RF: 0 atorvastatin 40 mg Tablet 40 mg PO HS Qty: 30 RF: 0 aspirin 81 mg Tablet,Delayed Release (Dr/Ec) 81 mg PO QAM Qty: 30 RF: 0 metoprolol tartrate 25 mg Tablet 12.5 mg PO BID Qty: 30 RF: 0 warfarin 2 mg tablet 2 mg PO UD Qty: 60 RF: 0 warfarin 1 mg tablet 1 mg PO UD Qty: 60 RF: 0 Continued cyanocobalamin (vitamin B-12) [Vitamin B-12] 1,000 mcg Tablet 1,000 mcg PO DAILY RF: 0 triamcinolone acetonide 0.1 % ointment 1 applic TOPICAL HS PRN (Reason: Rash) RF: 0 folic acid 1 mg Tablet 1 mg PO DAILY RF: 0 pyridoxine (vitamin B6) [Vitamin B-6] 100 mg Tablet 100 mg PO BID RF: 0 fluticasone propionate 50 mcg/actuation Barton,Suspension 1 spray INTRANASAL DAILY RF: 0 amino acid-multivit w/iron-min Tablet 1 tab PO DAILY RF: 0 apple cider vinegar 500 mg Tablet 500 mg PO DAILY RF: 0 cholecalciferol (vitamin D3) [Vitamin D3] 25 mcg (1,000 unit) Tablet 25 mcg PO DAILY RF: 0 turmeric-turmeric root extract 450-50 mg Capsule 1 cap PO DAILY RF: 0 Black Elderberry(Ellison-Flower) 575 mg capsule 575 mg PO DAILY RF: 0 levothyroxine 75 mcg tablet 75 mcg PO DAILYBB RF: 0 Procrit 40,000 unit/mL Solution 40,000 unit subcut DIRECTED RF: 0 azelastine 137 mcg (0.1 %) aerosol,spray 2 spray INTRANASAL BID RF: 0 acetaminophen [Tylenol Extra Strength] 500 mg Tablet 500 mg PO Q6H PRN (Reason: Pain) RF: 0 Discontinued amlodipine 2.5 mg tablet 2.5 mg PO DAILY RF: 0 Discharge Orders: Discharge Order (Routine); Ordered 03/20/21 Ordered By: Eulogio Valentin Admission Data Admit Date/Time: 03/11/21 05:23 Attending Provider: Eulogio Valentin Admit Provider: Sowmya Bishop Primary Care Provider: PCP,NO Other Providers: Helga Shepherd ; Thuy Rodriguez ; Sowmya Bishop ; Arash White ; Yani Garcia ; Javier Crawford ; Jameson Dixon ; Sean Cobos ; Darryl Hamilton ; Jim Freitas ; Ted Grullon ; Federico Montague Other Interventions: Discharge Summary Assessment (RN) Last Done: 03/20/21 13:10
[2021-03-20] MEDS ORDERED: WARFARIN SOD 2.5 MG TAB PO SCH (16:00)
== END 2021-03-20 14:13 | disposition home or self-care (01) | DRG 252 ==
LOC: ED 01:46 → MERGE 01:46 → 2S 05:23 → SUATTDRO 05:23 → 2S 10:07 → 1E 03-12 18:58 → 2S 03-13 15:52

== ENCOUNTER 2021-05-14 15:38 | Inpatient (IN) ==
--- NOTE | 2021-05-14 16:11 | XRay Report ---
XR chest 1V portable CLINICAL HISTORY: Shortness of breath. COMPARISON STUDY: Chest radiograph March 12, 2021. FINDINGS: Overlying defibrillator is noted. Small right pleural effusion is present. There is no pneu mothorax. Cardiomegaly is unchanged. Perihilar and bibasilar opacities are present. There is mild int erstitial thickening. IMPRESSION: 1. Interstitial thickening and perihilar and bibasilar opacities. Pulmonary edema is favored although an infectious process could appear similar. Radiographic follow-up is recommended to ensure resoluti on. 2. Small right pleural effusion. 3. Stable cardiomegaly. ACT 112: Negative or not required by law. Electronically signed by: Randy Thomas M.D. 05/14/2021 4:10 PM
[2021-05-14 17:00] LABS: Hematocrit (blood only) 30.4 % (42-52); Mean Corpuscular Hemoglobin 38.2 pg (25-34); Mean Corpuscular Hgb Conc 32.9 g/dL (32-36); Mean Platelet Volume 10.6 fL (7.4-10.4); Platelet Count 373 K/uL (130-400); RDW Coefficient of Variation 22.3 % (11.5-14.5); RDW Standard Deviation 92.7 fL (36.4-46.3); Red Blood Count 2.62 M/uL (4.7-6.1); White Blood Count 9.27 K/uL (4.8-10.8)
--- NOTE | 2021-05-14 17:01 | Emergency Department Note ---
Impression & Plan Acute decompensated heart failure, Acute kidney injury superimposed on chronic kidney disease ED Provider Note Provider: Carlos A Collier MD DATE OF SERVICE: 05/14/2021 CHIEF COMPLAINT: Shortness of breath, swelling, weakness HISTORY OF PRESENT ILLNESS: Patient is a 81-year-old gentleman with extensive past medical history including aortic stenosis, atrial fibrillation, NSTEMI, CKD, myelodysplastic syndrome/CLL, and heart failure with a LifeVest at this time referred from the cardiology office due to failing outpatient diuretic therapy. Patient is on Coumadin and amiodarone at this time. Was admitted end of February to the beginning of March with decompensated heart failure. Over the last 2 to 3 weeks the patient says increased swelling in his legs with dyspnea on exertion. States not been sleeping well. They've increased his diuretics without significant improvement in this. Weight is down a little bit. Patient denies that his LifeVest has defibrillated him. Denies significant pain at this time. Patient had blood work 2 days ago and follow-up with a varnish melter helper today and was noted to have increased LFTs and renal function and they had concerns about worsening heart failure versus complication from the amiodarone thus sent him here for further evaluation. No traumas reported. No significant nausea, vomiting, or diarrhea reported. No fevers or URI symptoms reported. Patient states he gets winded with walking very easily even across the room to the bathroom. REVIEW OF SYSTEMS: A total of 10 review of systems was obtained and negative except as stated above in the HPI. PAST MEDICAL HISTORY: As noted above MEDICATIONS: Reviewed home medications include amiodarone and warfarin SOCIAL HISTORY: Lives at home with significant other PHYSICAL EXAM: GENERAL: alert and oriented in no acute distress on stretcher Head: normocephalic and atraumatic EYES: No injection, discharge or icterus. NECK: Trachea midline. Supple. ENT: Mucous membranes pink and moist. LUNGS: Airway patent. No retractions. Breath sounds clear with diminished bases and some crackles in the bases. HEART: Regular rate and rhythm. No chest wall tenderness with pads in place and LifeVest. ABDOMEN: Soft and non-tender, without guarding or rebound. SKIN: Acyanotic, warm, dry, without rashes EXTREMITIES: Patient with 2+ bilateral lower extremity swelling without significant erythema or discharge noted. NEUROLOGICAL: No focal deficits. No aphasia. No facial droop or slurred speech. EK bpm sinus rhythm with frequent PVC. Left bundle branch block is noted. QTc 505. No acute ST segment elevation noted. Compared to recent from March 16 of this year decreased amplitude and worsen bundle branch block is noted. CONTINUOUS CARDIAC MONITORING: was ordered and showed a heart rate of 50s to 60s bpm in sinus bradycardia to normal sinus rhythm with frequent PVCs Patient's laboratory studies and imaging reviewed. Differential includes Infection, dehydration, metabolic abnormality, hypo/hyperglycemia, electrolyte disturbance, anemia, hypoxia, cardiac sources, intracerebral event, toxicologic, neurologic, as well as other pathologies. IMPRESSION/MEDICAL DECISION MAKING: Reviewed patient's recent admission as well as cardiology note from the [facility] system and lab work today. Patient with significant cardiac history and dysfunction on Coumadin and amiodarone. Now worsening renal function and LFTs. TSH mildly elevated outpatient labs were 2 days ago 4.5. Patient with bilateral lower extremity swelling and some pulmonary edema in the x-ray with minimal right pleural effusion. Has had this drained previously does not appear as bad as that. Has been on outpatient diuresis and now renal function is worsening. No fevers or infectious symptoms reported. Not hypoxic here. Question of some of his symptoms could be related to amiodarone toxicity versus CHF/fluid overload. No significant leukocytosis and stable mild anemia. ERICK on CKD with creatinine of 3.8 and BUN of 85 today. Minimally detectable troponin is improved from previous but AST ALT alkaline phosphatase and bilirubin are all somewhat elevated. proBNP significantly elevated. Mild hypokalemia and hyponatremia noted. Patient again with a benign abdomen at this time. Discussed with Dr. Alatorre of cardiology who is familiar with the case. He believes a lot of this is related to fluid overload. We will trial an IV dose of Lasix to see if this promotes diuresis and a Anthony placed for accurate I's and O's. Patient was in agreement in the hospital to be contacted for monitor diuresis here in the [facility]. Further nephrology consultation and possible renal ultrasound could be considered as an inpatient. DIAGNOSIS: Decompensated heart failure, ERICK on CKD DISPOSITION: Hospitalist will evaluate Patient was agreeable with this plan. Past Med/Surg History Medical History Anemia in CKD (chronic kidney disease) CKD (chronic kidney disease) stage 3, GFR 30-59 ml/min CLL (chronic lymphocytic leukemia) H/O: rheumatic fever HTN (hypertension) LBBB (left bundle branch block) MDS (myelodysplastic syndrome), low grade Nocturnal hypoxemia HAWA (obstructive sleep apnea) Prostate cancer Tobacco use disorder Surgical History H/O uvulectomy S/P tonsillectomy and adenoidectomy Family History Other Family history non-contributory Social History Smoking Status: Former smoker Second Hand Exposure: No; Hx Alcohol Use: No Hx Substance Use: No Preferred Language: Frisian Communication Ability: Effective Adult Family Home Program Manager Required: No Beliefs That Will Affect Care: None Current Living Situation: Spouse How many Children do You have: 4 Feels Safe at Home: Yes Assistive Devices: None Allergies Allergies Allergy/AdvReac Type Severity Reaction Status Date / Time RYLEE Inhibitors AdvReac Intermediate Renal Verified 05/14/21 18:29 Complications Home Meds Home Medications Medication Instructions Recorded Confirmed Black Elderberry(Ellison-Flower) 575 mg PO DAILY 03/11/21 05/14/21 apple cider vinegar 500 mg tablet 500 mg PO DAILY 03/11/21 05/14/21 azelastine 137 mcg (0.1 %) nasal 2 spray INTRANASAL BID 03/11/21 05/14/21 spray aerosol cholecalciferol (vitamin D3) 25 25 mcg PO DAILY 03/11/21 05/14/21 mcg (1,000 unit) tablet (Vitamin D3) cyanocobalamin (vitamin B-12) 1,000 mcg PO DAILY 03/11/21 05/14/21 1,000 mcg tablet (Vitamin B-12) epoetin abel 40,000 unit/mL 40,000 unit SUBCUT DIRECTED 03/11/21 05/14/21 injection solution (Procrit) fluticasone propionate 50 1 spray INTRANASAL DAILY 03/11/21 05/14/21 mcg/actuation nasal spray,suspension folic acid 1 mg tablet 1 mg PO DAILY 03/11/21 05/14/21 levothyroxine 75 mcg tablet 75 mcg PO DAILYBB 03/11/21 05/14/21 pyridoxine (vitamin B6) 100 mg 100 mg PO BID 03/11/21 05/14/21 tablet (Vitamin B-6) triamcinolone acetonide 0.1 % 1 applic TOPICAL HS PRN 03/11/21 05/14/21 topical ointment turmeric 450 mg-turmeric root 1 cap PO DAILY 03/11/21 05/14/21 extract 50 mg capsule amiodarone 200 mg tablet 200 mg PO DAILY 05/14/21 05/14/21 coffee extract 50 mg-phosphatidyl 1 tab PO DAILY 05/14/21 05/14/21 serine 50 mg chewable tablet (Neuriva Original) lactobacillus combination no.4 3 0 mmu cells PO DAILY 05/14/21 05/14/21 billion cell capsule (Probiotic) metoprolol succinate 25 mg 25 mg PO DAILY 05/14/21 05/14/21 tablet,extended release 24 hr torsemide 20 mg tablet 40 mg PO DAILY 05/14/21 05/14/21 warfarin 2 mg tablet 1 - 2 mg PO UD 05/14/21 05/14/21 Previous Rx's Medication Instructions Recorded aspirin 81 mg tablet,delayed 81 mg PO QAM #30 tab 03/20/21 release atorvastatin 40 mg tablet 40 mg PO HS #30 tab 03/20/21 Results & Data (ED) Vital Signs Vital Signs - 24 hr 05/14/21 15:45 05/14/21 16:22 05/14/21 16:30 Temperature 36.3 C L Temperature Source Temporal Artery Scan Pulse Rate 95 H 62 67 Pulse Rate [Apical] Pulse Rate from SpO2 Sensor 60 Pulse Rhythm Regular Pulse Strength Normal Respiratory Rate 20 21 22 Respiratory Effort / Characteristics Non-Labored Spontaneous Respiratory Depth Normal Respiratory Pattern Regular Blood Pressure 100/62 116/67 Blood Pressure [Right Arm] Blood Pressure Mean 74 83 Blood Pressure Mean [Right Arm] Blood Pressure Position Sitting Pulse Oximetry 100 Oxygen Delivery Method Room Air Sepsis Recent Fever Within 48 Hours No Sepsis New/Unexplained Change in Mental Status No Sepsis Action Taken by Nursing No Action Required 05/14/21 16:48 05/14/21 16:49 05/14/21 17:00 Temperature Temperature Source Pulse Rate 59 L Pulse Rate [Apical] 59 L Pulse Rate from SpO2 Sensor 62 Pulse Rhythm Pulse Strength Respiratory Rate 20 20 Respiratory Effort / Characteristics Non-Labored Spontaneous Respiratory Depth Normal Respiratory Pattern Regular Blood Pressure 116/67 Blood Pressure [Right Arm] 116/67 Blood Pressure Mean 83 Blood Pressure Mean [Right Arm] 83 Blood Pressure Position Pulse Oximetry 94 99 100 Oxygen Delivery Method Room Air Room Air Sepsis Recent Fever Within 48 Hours Sepsis New/Unexplained Change in Mental Status Sepsis Action Taken by Nursing 05/14/21 17:30 05/14/21 18:00 05/14/21 18:30 Temperature Temperature Source Pulse Rate 62 74 Pulse Rate [Apical] Pulse Rate from SpO2 Sensor 62 61 64 Pulse Rhythm Pulse Strength Respiratory Rate 20 21 13 Respiratory Effort / Characteristics Respiratory Depth Respiratory Pattern Blood Pressure 118/59 L 107/71 Blood Pressure [Right Arm] Blood Pressure Mean 78 83 Blood Pressure Mean [Right Arm] Blood Pressure Position Pulse Oximetry 100 99 99 Oxygen Delivery Method Sepsis Recent Fever Within 48 Hours Sepsis New/Unexplained Change in Mental Status Sepsis Action Taken by Nursing Laboratory Data Result diagrams: 05/14/21 16:50 05/14/21 16:50 Lab Results 05/14/21 05/14/21 05/14/21 Range/Units 16:50 16:50 16:50 WBC 9.27 (4.8-10.8) K/uL RBC 2.62 L (4.7-6.1) M/uL Hgb 10.0 L (14.0-18.0) g/dL Hct 30.4 L (42-52) % MCV 116.0 H (80-100) fL MCH 38.2 H (25-34) pg MCHC 32.9 (32-36) g/dL RDW Std Deviation 92.7 H (36.4-46.3) fL RDW Coeff of Geovanni 22.3 H (11.5-14.5) % Plt Count 373 (130-400) K/uL MPV 10.6 H (7.4-10.4) fL Immature Gran % (Auto) 0.3 % Neut % (Auto) 35.2 % Lymph % (Auto) 53.3 % [place] % (Auto) 9.6 % Eos % (Auto) 1.2 % Baso % (Auto) 0.4 % Neut # (Auto) 3.26 (1.4-6.5) K/uL Lymph # (Auto) 4.94 H (1.2-3.4) K/uL [place] # (Auto) 0.89 H (0.11-0.59) K/uL Eos # (Auto) 0.11 (0-0.5) K/uL Baso # (Auto) 0.04 (0-0.2) K/uL Immature Gran # (Auto) 0.03 H (0.00-0.02) K/uL Anisocytosis Present Echinocytes 1+ PT 37.3 H (9.0-12.0) Seconds INR 4.1 H (0.9-1.1) APTT 49.2 H* (21.0-31.0) Seconds PTT Ratio 1.9 Sodium 134 L (136-145) mmol/L Potassium 3.0 L (3.5-5.1) mmol/L Chloride 97 L (98-107) mmol/L Carbon Dioxide 28 (21-32) mmol/L Anion Gap 9.0 (3-11) BUN 85 H (7-18) mg/dl Creatinine 3.83 H (0.6-1.4) mg/dl Est Cr Clr Drug Dosing Not Reportable Est GFR ( Amer) 16.2 ml/min Est GFR (Non-Af Amer) 14.0 ml/min BUN/Creatinine Ratio 22.2 H (10-20) Glucose 112 H (70-99) mg/dl Calcium 8.8 (8.5-10.1) mg/dl Magnesium 3.1 H (1.8-2.4) mg/dl Total Bilirubin 1.4 H (0.2-1) mg/dl AST 122 H (15-37) U/L ALT 294 H (12-78) Alkaline Phosphatase 304 H D (45-117) U/L Troponin I 0.055 H* (0-0.045) ng/ml NT-Pro-B Natriuret Pep 92729 H (0-1800) pg/ml Total Protein 7.1 (6.4-8.2) gm/dl Albumin 3.6 (3.4-5.0) gm/dl Globulin 3.5 (2.5-4.0) gm/dl Albumin/Globulin Ratio 1.0 (0.9-2) Lipase 131 (73-393) U/L SARS-CoV-2 (PCR) (Negative) Influenza Type A (PCR) (Neg) Influenza Type B (PCR) (Neg) RSV (RT-PCR) (Neg) 05/14/21 Range/Units 16:54 WBC (4.8-10.8) K/uL RBC (4.7-6.1) M/uL Hgb (14.0-18.0) g/dL Hct (42-52) % MCV (80-100) fL MCH (25-34) pg MCHC (32-36) g/dL RDW Std Deviation (36.4-46.3) fL RDW Coeff of Geovanni (11.5-14.5) % Plt Count (130-400) K/uL MPV (7.4-10.4) fL Immature Gran % (Auto) % Neut % (Auto) % Lymph % (Auto) % [place] % (Auto) % Eos % (Auto) % Baso % (Auto) % Neut # (Auto) (1.4-6.5) K/uL Lymph # (Auto) (1.2-3.4) K/uL [place] # (Auto) (0.11-0.59) K/uL Eos # (Auto) (0-0.5) K/uL Baso # (Auto) (0-0.2) K/uL Immature Gran # (Auto) (0.00-0.02) K/uL Anisocytosis Echinocytes PT (9.0-12.0) Seconds INR (0.9-1.1) APTT (21.0-31.0) Seconds PTT Ratio Sodium (136-145) mmol/L Potassium (3.5-5.1) mmol/L Chloride (98-107) mmol/L Carbon Dioxide (21-32) mmol/L Anion Gap (3-11) BUN (7-18) mg/dl Creatinine (0.6-1.4) mg/dl Est Cr Clr Drug Dosing Est GFR ( Amer) ml/min Est GFR (Non-Af Amer) ml/min BUN/Creatinine Ratio (10-20) Glucose (70-99) mg/dl Calcium (8.5-10.1) mg/dl Magnesium (1.8-2.4) mg/dl Total Bilirubin (0.2-1) mg/dl AST (15-37) U/L ALT (12-78) Alkaline Phosphatase (45-117) U/L Troponin I (0-0.045) ng/ml NT-Pro-B Natriuret Pep (0-1800) pg/ml Total Protein (6.4-8.2) gm/dl Albumin (3.4-5.0) gm/dl Globulin (2.5-4.0) gm/dl Albumin/Globulin Ratio (0.9-2) Lipase (73-393) U/L SARS-CoV-2 (PCR) NEGATIVE (Negative) Influenza Type A (PCR) Negative (Neg) Influenza Type B (PCR) Negative (Neg) RSV (RT-PCR) Negative (Neg) Administered Medications Discontinued Medications Furosemide (Furosemide 40 Mg/4 Ml Vial) 60 mg IV ONE ONE Stop: 05/14/21 17:49 Last Admin: 05/14/21 18:30 Dose: 60 mg Documented by: [id number] Imaging Data Radiologist's Impression: Chest X-Ray 05/14/21 15:49 XR chest 1V portable CLINICAL HISTORY: Shortness of breath. COMPARISON STUDY: Chest radiograph March 12, 2021. FINDINGS: Overlying defibrillator is noted. Small right pleural effusion is present. There is no pneumothorax. Cardiomegaly is unchanged. Perihilar and bibasilar opacities are present. There is mild interstitial thickening. IMPRESSION: 1. Interstitial thickening and perihilar and bibasilar opacities. Pulmonary edema is favored although an infectious process could appear similar. Radiographic follow-up is recommended to ensure resolution. 2. Small right pleural effusion. 3. Stable cardiomegaly. ACT 112: Negative or not required by law. Electronically signed by: Randy Thomas M.D. 05/14/2021 4:10 PM Discharge Plan Visit Data Chief Complaint: Shortness of Breath/Dyspnea Stated Complaint: SENT BY JUSTIN, FLUID IN LEGS, SOB ED Provider: Carlos A Collier Discharge Problem: Acute decompensated heart failure, Acute kidney injury superimposed on chronic kidney disease Patient Disposition: Being Evaluated by Hospitalist Forms Stand Alone Forms: My [facility] [employer] Prescriptions Prescriptions: No Action cyanocobalamin (vitamin B-12) [Vitamin B-12] 1,000 mcg Tablet 1,000 mcg PO DAILY RF: 0 triamcinolone acetonide 0.1 % ointment 1 applic TOPICAL HS PRN (Reason: Rash) RF: 0 folic acid 1 mg Tablet 1 mg PO DAILY RF: 0 pyridoxine (vitamin B6) [Vitamin B-6] 100 mg Tablet 100 mg PO BID RF: 0 fluticasone propionate 50 mcg/actuation [place],Suspension 1 spray INTRANASAL DAILY RF: 0 apple cider vinegar 500 mg Tablet 500 mg PO DAILY RF: 0 cholecalciferol (vitamin D3) [Vitamin D3] 25 mcg (1,000 unit) Tablet 25 mcg PO DAILY RF: 0 turmeric-turmeric root extract 450-50 mg Capsule 1 cap PO DAILY RF: 0 Black Elderberry(Ellison-Flower) 575 mg capsule 575 mg PO DAILY RF: 0 levothyroxine 75 mcg tablet 75 mcg PO DAILYBB RF: 0 Procrit 40,000 unit/mL Solution 40,000 unit subcut DIRECTED RF: 0 azelastine 137 mcg (0.1 %) aerosol,spray 2 spray INTRANASAL BID RF: 0 atorvastatin 40 mg Tablet 40 mg PO HS Qty: 30 RF: 0 aspirin 81 mg Tablet,Delayed Release (Dr/Ec) 81 mg PO QAM Qty: 30 RF: 0 torsemide 20 mg tablet 40 mg PO DAILY RF: 0 metoprolol succinate 25 mg tablet extended release 24 hr 25 mg PO DAILY RF: 0 Probiotic 3 billion cell Capsule 0 mmu cells PO DAILY RF: 0 Neuriva Original 50-50 mg Tablet,Chewable 1 tab PO DAILY RF: 0 amiodarone 200 mg tablet 200 mg PO DAILY RF: 0 warfarin 2 mg tablet 1 - 2 mg PO UD RF: 0 Referrals Referrals: PCP,NO [Physician] -
[2021-05-14 17:18] LABS: Alanine Aminotransferase 294 (12-78); Albumin Level 3.6 gm/dl (3.4-5.0); Aspartate Aminotransferase 122 U/L (15-37); BUN Creatinine Ratio 22.2 (10-20); Blood Urea Nitrogen 85 mg/dl (7-18); Calcium 8.8 mg/dl (8.5-10.1); Carbon Dioxide 28 mmol/L (21-32); Chloride 97 mmol/L (98-107); Est GFR (African American) 16.2 ml/min; Glucose 112 mg/dl (70-99); Lipase 131 U/L (73-393); Magnesium 3.1 mg/dl (1.8-2.4); Sodium 134 mmol/L (136-145)
[2021-05-14 17:26] LABS: Alkaline Phosphatase 304 U/L (45-117); Bilirubin,Total 1.4 mg/dl (0.2-1); Globulin 3.5 gm/dl (2.5-4.0); NT Pro B Type Natriuretic Pept 17181 pg/ml (0-1800); Total Protein 7.1 gm/dl (6.4-8.2); Troponin I 0.055 ng/ml (0-0.045)
[2021-05-14 17:29] LABS: INR 4.1 (0.9-1.1); Partial Thromboplastin Ratio 1.9; Prothrombin Time 37.3 Seconds (9.0-12.0)
[2021-05-14 17:45] LABS: Influenza A virus by PCR Negative (Neg); Influenza B virus by PCR Negative (Neg); RSV by PCR Negative (Neg)
[2021-05-14] MEDS ORDERED: FUROSEMIDE 40 MG/4 ML VIAL IV ONE (17:48)
[2021-05-14 17:54] LABS: Partial Thromboplastin Time 49.2 Seconds (21.0-31.0)
[2021-05-14 18:06] LABS: Anisocytosis Present; Basophils # (auto) 0.04 K/uL (0-0.2); Basophils % (auto) 0.4 %; Echinocytes 1+; Eosinophils # (auto) 0.11 K/uL (0-0.5); Eosinophils % (auto) 1.2 %; Immature Granulocytes # (auto) 0.03 K/uL (0.00-0.02); Immature Granulocytes % (auto) 0.3 %; Lymphocytes # (auto) 4.94 K/uL (1.2-3.4); Lymphocytes % (auto) 53.3 %; Monocytes # (auto) 0.89 K/uL (0.11-0.59); Monocytes % (auto) 9.6 %; Neutrophils # (auto) 3.26 K/uL (1.4-6.5); Neutrophils % (auto) 35.2 %
[2021-05-14] MEDS ORDERED: POTASSIUM CHLORIDE CRTAB 20 MEQ TABCR PO STA (19:49)
[2021-05-14] MEDS ORDERED: TRIAMCINOLONE ACET 0.1% OINT 15 GM TUBE TOP PRN (23:11)
[2021-05-14] MEDS ORDERED: NITROGLYCERIN SL 0.4 MG/TAB TAB SL PRN (23:11)
[2021-05-15] MEDS ORDERED: MELATONIN 3 MG TAB PO ONE (00:44)
[2021-05-15] MEDS: PYRIDOXINE HCL 50 MG TAB PO SCH ×3 (00:48→20:27)
[2021-05-15] MEDS: AZELASTINE HCL 0.1% NASAL 200 SPRAYS/27,400 MCG BTL SCH ×3 (00:49→20:28)
--- NOTE | 2021-05-15 00:55 | History and Physical Report ---
DATE OF ADMISSION: 05/14/2021. CHIEF COMPLAINT: Shortness of breath. 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 The patient was admitted in the end of February for acute respiratory failure and non-ST elevated WI and CHF. Had bilateral thoracocentesis showing transudate. Echo showed EF of 20% to 25%, grade 2 diastolic dysfunction, moderate mitral regurgitation, and he also had new-onset atrial fibrillation treated with metoprolol and amiodarone. Started on IV heparin, discharged on Coumadin. He also had left leg arterial embolism, had thrombectomy with vascular surgery on 03/12/2021, on medical management, on aspirin and Coumadin. At discharge, as per the patient, he followed up with nephrology, was taking torsemide 40 mg b.i.d., but he was not tolerating it well and it was cut back to 40 mg daily. He says all the medications messed him up and he was not feeling well and was not sleeping well, and his legs were getting swollen again. He saw cardiology today for close followup and he was getting more short of breath, walking 10 to 15 feet making him short of breath. He had worsening symptoms and weakness, and increasing lower extremity edema. The patient also had labs done today which are showing worsening renal function and elevated LFTs, and he was advised to come to the hospital for further treatment and workup. Currently, the patient is resting comfortably and hemodynamically stable. Denies any headache. No blurred vision. Once in a while dizzy, once in a while runny nose. No sore throat. Appetite is down, not eating or drinking much. No difficulty swallowing. No chest pain. No nausea, no abdominal pain. Bowels are not regular since he is not eating and drinking much, micturating okay. Received a dose of IV Lasix 60mg in the ER, he says that has brought swelling of the legs down. Ambulates with a cane. Lives with his significant other. Denies any fever or chills. No cough. ALLERGIES: RYLEE INHIBITORS. PAST MEDICAL HISTORY: As mentioned above. PAST SURGICAL HISTORY: Thoracocentesis. MEDICATIONS: Currently, the patient is on amiodarone 200 mg p.o. daily, aspirin 81 mg daily, azelastine 2 sprays intranasal b.i.d., vitamin D 25 mcg p.o. daily, vitamin B12 1000 mcg p.o. daily, Flonase 1 spray intranasal daily, levothyroxine 75 mcg p.o. daily, metoprolol succinate 25 mg p.o. daily, Procrit 40,000 units as directed, vitamin B6 100 mg p.o. b.i.d., torsemide 40 mg p.o. daily, triamcinolone one application topically at bedtime p.r.n., warfarin 1-2 mg as directed. FAMILY HISTORY: Significant for no family history on file. SOCIAL HISTORY: Quit cigar in February 2021. Alcohol occasional. No drug use. REVIEW OF SYSTEMS: As per HPI. Rest of the review of systems is negative. PHYSICAL EXAMINATION: GENERAL: The patient is of moderate build, not in acute distress. VITAL SIGNS: Temperature 36.3, pulse 74, respiratory rate 13, blood pressure 107/71, oxygen 97% on room air. HEENT: Pupils equal, round and reactive to light. Oral mucosa moist. NECK: No JVD. No neck masses. CARDIOVASCULAR: S1 and S2 heard. Regular rate and rhythm, ejection systolic murmur in aortic area heard. RESPIRATORY SYSTEM: Normal AP diameter. No accessory muscle use. Mild bibasilar crackles. No wheezing. ABDOMEN: Soft, bowel sounds present, nontender, no distention. CENTRAL NERVOUS SYSTEM: Alert and oriented x3. Speech is clear. No facial droop. Insight is good. Moves extremities. Obeys simple commands. EXTREMITIES: Bilateral lower extremity gross edema present, no erythema seen. LABORATORY DATA: WBC 9.2, hemoglobin 10, hematocrit 30.4, platelets 373. PT 37.3, INR 4.1, APTT 49.2. Sodium 134, potassium 3, chloride 97, bicarbonate 28, BUN 85, creatinine 3.8, serum glucose 112, calcium 8.8, magnesium 3.1, total bilirubin 1.4, AST 122, ALT 294, alkaline phosphatase 304. Troponin I of 0.05. BNP 17,181, lipase 131. SARS-CoV-2 PCR negative. Influenza A and B PCR negative, RSV PCR negative. IMAGING DATA: Chest x-ray: Interstitial thickening and perihilar and bibasilar opacities, pulmonary edema is stable, although an infectious process could appear similar. Radiographic followup is recommended to ensure resolution. Small right pleural effusion, stable cardiomegaly. EKG: Sinus rhythm with frequent PVCs and fusion complex . Left bundle branch block at the rate of 61. ASSESSMENT AND PLAN: This is an 81-year-old male who presents with worsening shortness of breath and lower extremity edema. 1. [id number] systolic and diastolic congestive heart failure: Ejection fraction of 20% to 25% in last echo done on 03/18/2021, not tolerating torsemide as outpatient. Kidney function also worsening. Received a dose of IV Lasix dose at 60 mg in the ER. Will follow the repeat labs in the a.m. Will place on IV Lasix 40 b.i.d. from tomorrow based on the response and labs. Closely monitor in the tele floor. Daily weights, I's and O's. Repeat echo. Consult Cardiology consult in a.m. The patient is on live vest Was discharged on it last admission. Further management as per Cardiology. 2. chronic left bundle-branch block. 3. Acute kidney injury on chronic kidney disease stage III: Baseline creatinine seemed to be around 2.3-2.4, presently with a creatinine of 3.8, getting IV Lasix. Follow the repeat labs in the a.m. Avoid nephrotoxic agents and consult Nephrology for further recommendation for management of diuretics. 3. Mild elevation of troponin, mostly likely demand ischemia: Follow serial enzymes. Follow echocardiogram. Currently asymptomatic. 4. History of non-ST elevated myocardial infarction, treated medically last admission, on aspirin, metoprolol, and statin. 5. History of pleural effusions: Needs followup. 6. History of atrial fibrillation, on amiodarone and metoprolol: Rate is under control .On Coumadin. INR is supratherapeutic. Hold Coumadin. Follow PT/INR. 7. History of left leg embolism, status post thrombectomy at last admission. On aspirin and Coumadin. Follow up with vascular surgery. 8. History of hypertension: Continue current medication of metoprolol. 9. History of moderate aortic stenosis and moderate mitral regurgitation. Monitor for volume overload. 10. Currently history of T-cell lymphoma, status post chemotherapy, now currently myelodysplastic syndrome. Follow up with heme/onc. 11. Anemia, on Procrit shots and also MCV is elevated, on vitamin B12 supplements. 12. Obstructive sleep apnea: Not sure using CPAP at bedtime, but will order and see if the patient can tolerate it. 13.Elevated LFT. Follow repeat labs. Follow liver US. possibly from hepatic congestion from chf. 13. Deep venous thrombosis prophylaxis: On Coumadin. INR supratherapeutic. Holding Coumadin. Follow PT/INR. Level 1 full code. DISPOSITION: Admit to tele floor. PT/OT prior to discharge. Social service to help with discharge planning. Job ID: [id number]
[2021-05-15] MEDS ORDERED: LORazepam 0.5 MG TAB PO STA ×2 (02:07→19:37)
[2021-05-15] MEDS: LEVOTHYROXINE SODIUM 75 MCG TABLET PO SCH (04:51)
[2021-05-15 05:55] LABS: Basophils # (auto) 0.04 K/uL (0-0.2); Basophils % (auto) 0.4 %; Eosinophils # (auto) 0.06 K/uL (0-0.5); Eosinophils % (auto) 0.6 %; Hematocrit (blood only) 28.5 % (42-52); Hemoglobin 9.2 g/dL (14.0-18.0); Immature Granulocytes # (auto) 0.03 K/uL (0.00-0.02); Immature Granulocytes % (auto) 0.3 %; Lymphocytes # (auto) 3.55 K/uL (1.2-3.4); Lymphocytes % (auto) 38.4 %; Mean Corpuscular Hemoglobin 37.2 pg (25-34); Mean Corpuscular Hgb Conc 32.3 g/dL (32-36); Mean Corpuscular Volume 115.4 fL (80-100); Mean Platelet Volume 10.5 fL (7.4-10.4); Monocytes # (auto) 0.86 K/uL (0.11-0.59); Monocytes % (auto) 9.3 %; Neutrophils # (auto) 4.71 K/uL (1.4-6.5); Platelet Count 314 K/uL (130-400); RDW Coefficient of Variation 22.3 % (11.5-14.5); RDW Standard Deviation 91.2 fL (36.4-46.3); Red Blood Count 2.47 M/uL (4.7-6.1); White Blood Count 9.25 K/uL (4.8-10.8)
[2021-05-15 06:11] LABS: INR 3.6 (0.9-1.1); Prothrombin Time 33.3 Seconds (9.0-12.0)
[2021-05-15 06:22] LABS: Calcium 8.9 mg/dl (8.5-10.1); Creatinine Clr Calc Pharmacy 17.6 ml/min; Est GFR (African American) 18.2 ml/min; Est GFR (Non-African American) 15.7 ml/min; Magnesium 2.9 mg/dl (1.8-2.4); Troponin I 0.049 ng/ml (0-0.045)
[2021-05-15 06:30] LABS: Anisocytosis Present; Macrocytosis Present; Ovalocytes 1+; Polychromasia 1+; Tear Drop Cells 1+
[2021-05-15 07:21] LABS: Potassium 3.7 mmol/L (3.5-5.1)
[2021-05-15] MEDS: ASPIRIN 81 MG ECTAB PO SCH (08:10)
[2021-05-15] MEDS: AMIODARONE 200 MG TAB PO SCH (08:11)
[2021-05-15] MEDS: METOPROLOL SUCC 25MG EXT REL TAB PO SCH ×3 (08:11→20:28)
[2021-05-15] MEDS: FLUTICASONE PROPIONATE NA SPR 16 GM BTL SCH (08:11)
[2021-05-15] MEDS: CHOLECALCIFEROL 1,000 UNITS 25 MCG TAB PO SCH (08:11)
[2021-05-15] MEDS: CYANOCOBALAMIN 500 MCG TABLET (VITAMIN B-12) PO SCH (08:12)
[2021-05-15] MEDS ORDERED: FUROSEMIDE 40 MG/4 ML VIAL IV SCH (09:00)
[2021-05-15] MEDS ORDERED: Nursing to Pharmacy Communication SCH (09:00)
[2021-05-15] MEDS ORDERED: POTASSIUM CHLORIDE CRTAB 20 MEQ TABCR PO STA (10:16)
[2021-05-15 11:15] LABS: Albumin Level 3.2 gm/dl (3.4-5.0); Bilirubin Direct 0.7 mg/dl (0-0.2); Bilirubin,Total 1.5 mg/dl (0.2-1)
--- NOTE | 2021-05-15 11:35 | Nephrology Consultation ---
Date of Consultation May 15, 2021 Assessment & Plan (1) Acute kidney injury superimposed on chronic kidney disease: Patient with acute kidney injury on CKD likely due to cardiorenal syndro me. Baseline creatinine of 2.5. Admission creatinine of 3.8 and downtrending 3.48 today. He does have volume overload. -Increase Lasix to 40 mg IV 3 times daily. -Monitor input output -Daily BMP (2) Acute decompensated heart failure: Patient with a low EF of 25% and pulmonary hypertension. We will continue diuresis with IV Lasix as above. Patient was net -630 mL this morning. If patient is not significantly net negative will transition to Lasix drip tomorrow. Discussed case with the Dr. Dinh History of Present Illness Reason for Consultation: ERICK, CHF Requesting Physician: Sowmya Bishop DO Attending Physician: Sowmya Bishop DO History of Present Illness This is an 81-year-old male with PMH of hypertension, T-cell lymphoma treated with chemotherapy and now has myelodysplastic syndrome, anemia on Procrit, nonrheumatic moderate aortic valve stenosis, chronic kidney disease stage IIIB with baseline creatinine of 2.5 and CHF with a EF of 25% who was admitted with worsening shortness of breath and leg swelling. The patient was admitted in the end of February for acute respiratory failure and non-ST elevated LA and CHF. Had bilateral thoracocentesis showing transudate. He improved with diuresis and discharged on torsemide 40 mg twice daily. This was reduced to 40 mg daily outpatient. Patient now comes in with worsening shortness of breath and leg swelling. He received 60 mg of IV Lasix and was net negative about 600 mL this morning. His breathing is improved and leg swelling is subsiding. Admission creatinine was 3.8 and this morning down to 3.48. He has a Anthony catheter. He lives in [place]. Chest x-ray showed cardiomegaly and pulmonary edema. Allergies Allergy/AdvReac Type Severity Reaction Status Date / Time RYLEE Inhibitors AdvReac Intermediate Renal Verified 05/14/21 18:29 Complications Home Medications Medication Instructions Recorded Confirmed Type azelastine 137 mcg (0.1 %) nasal 2 spray INTRANASAL BID 03/11/21 05/14/21 History spray aerosol cholecalciferol (vitamin D3) 25 25 mcg PO DAILY 03/11/21 05/14/21 History mcg (1,000 unit) tablet (Vitamin D3) cyanocobalamin (vitamin B-12) 1,000 mcg PO DAILY 03/11/21 05/14/21 History 1,000 mcg tablet (Vitamin B-12) epoetin abel 40,000 unit/mL 40,000 unit SUBCUT DIRECTED 03/11/21 05/14/21 History injection solution (Procrit) fluticasone propionate 50 1 spray INTRANASAL DAILY 03/11/21 05/14/21 History mcg/actuation nasal spray,suspension levothyroxine 75 mcg tablet 75 mcg PO DAILYBB 03/11/21 05/14/21 History pyridoxine (vitamin B6) 100 mg 100 mg PO BID 03/11/21 05/14/21 History tablet (Vitamin B-6) triamcinolone acetonide 0.1 % 1 applic TOPICAL HS PRN 03/11/21 05/14/21 History topical ointment aspirin 81 mg tablet,delayed 81 mg PO QAM #30 tab 03/20/21 05/14/21 Rx release amiodarone 200 mg tablet 200 mg PO DAILY 05/14/21 05/14/21 History metoprolol succinate 25 mg 25 mg PO DAILY 05/14/21 05/14/21 History tablet,extended release 24 hr torsemide 20 mg tablet 40 mg PO DAILY 05/14/21 05/14/21 History warfarin 2 mg tablet 1 - 2 mg PO UD 05/14/21 05/14/21 History Patient History Medical History Anemia in CKD (chronic kidney disease) CKD (chronic kidney disease) stage 3, GFR 30-59 ml/min CLL (chronic lymphocytic leukemia) H/O: rheumatic fever HTN (hypertension) LBBB (left bundle branch block) MDS (myelodysplastic syndrome), low grade Nocturnal hypoxemia HAWA (obstructive sleep apnea) Prostate cancer Tobacco use disorder Surgical History H/O uvulectomy S/P tonsillectomy and adenoidectomy Family History Other Family history non-contributory Social History Smoking Status: Former smoker Second Hand Exposure: No; Hx Alcohol Use: No Hx Substance Use: No Preferred Language: Faroese Communication Ability: Effective Clinical Resource Nurse Required: No Beliefs That Will Affect Care: None marital status: / Current Living Situation: Other Current Living Situation Comment: Pt lives with girlfriend Zaira Toledo How many Children do You have: 4 Other Information That Helps Us Care for You: No Feels Safe at Home: Yes Safety Concerns: Feels Safe At This Time Assistive Devices: CPAP Review of Systems Review of Systems: All other systems were reviewed and negative except as noted in HPI Physical Exam Physical Exam: General exam: Appears comfortable, no acute distress HEENT: Pupils are equal and reactive to light Neck: No JVD, neck is supple trachea is midline Respiratory system: Clear breath sounds bilaterally. Gastrointestinal: Abdomen is soft, non distended, non tender, bowel sounds are present CVS: Regular rate and rhythm. No murmurs, rubs or gallops Musculoskeletal: No joint or muscle tenderness Extremities: Non tender, 1+ edema, peripheral pulses are present Neuro: Oriented, no tremors, no focal neurological deficits Skin: No rashes Results & Data ([facility]) Vital Signs (Past 12 Hours) Vital Signs Temp Pulse Pulse Resp BP Pulse Ox 05/15/21 08:00 64 05/15/21 07:57 36.6 C 67 16 109/64 98 05/15/21 03:47 36.3 C L 66 22 101/65 98 Laboratory Results 05/15/21 05:29 05/14/21 05/14/21 05/15/21 16:50 16:50 05:29 WBC 9.27 9.25 RBC 2.62 L 2.47 L MCV 116.0 H 115.4 H MCH 38.2 H 37.2 H MCHC 32.9 32.3 RDW Std Deviation 92.7 H 91.2 H RDW Coeff of Geovanni 22.3 H 22.3 H Plt Count 373 314 MPV 10.6 H 10.5 H Albumin 3.6 05/15/21 05:31 WBC RBC MCV MCH MCHC RDW Std Deviation RDW Coeff of Geovanni Plt Count MPV Albumin 3.2 L
--- NOTE | 2021-05-15 11:38 | Cardiology Consultation ---
Date of Consultation May 15, 2021 Assessment & Plan (1) Acute on chronic HFrEF (heart failure with reduced ejection fraction): 1. Acute on chronic heart failure with reduced ejection fraction, in the setting of presumed ischemic cardiomyopathy based on appearance of echocardiogram and regional wall motion abnormalities, as well as left bundle branch block, wide QRS duration, recently up to 178 ms. 2. Acute kidney injury on chronic kidney disease, recent baseline creatinine 2.5-3.2, was 3.8 on presentation 05/14/2021, improved to 3.48 today 3. Myelodysplastic syndrome, with Procrit support for anemia 4. Likely underlying moderate aortic stenosis Discussion/recommendations: Echocardiogram performed today reveals ongoing severe left ventricular systolic dysfunction, LVEF 25%. Grade 2 diastolic dysfunction also noted, estimated pulmonary artery systolic pressure 70 mmHg. The patient actually states that his significant lower extremity edema which have been noted as an outpatient improved significantly after his first dose of furosemide 60 mg in the emergency room. He received 40 mg of IV furosemide this morning. Creatinine actually looked improved. I am not certain that the intake and output put summary is accurate. He now has a Anthony catheter. Potassium replacement already ordered by nephrology. Will discuss case and determine furosemide dose for today. Coumadin on hold for INR of > 3, repeat INR tomorrow. Transaminases elevated but trending down. Perhaps due to hepatic congestion from CHF, continue amiodarone for now and follow. CMP ordered for tomorrow. Overall , plan to optimized volume status and at some point consider pharm nuclear stress for ischemia evaluation . If deemed not a candidate for revascularization BAKER SECOND capable ICD likely indicated, however he is still less than 3 months removed from his initial diagnosis so will need to discuss timing with EP. History of Present Illness Attending Physician: Sowmya Bishop, History of Present Illness Javier Toledo is an 81-year-old male seen in cardiology consultation per the request of Dr. summers and Dr España for ongoing cardiology management of acute on chronic systolic heart failure. Patient was seen in the outpatient [facility] cardiology clinic by Ros Maynard PA-C of our practice yesterday and noted worsening dyspnea with minimal exertion, unable to walk 10 feet without becoming very short of breath. He has had progressive lower extremity edema over the last 2 days. Has been followed by cardiology as well as nephrology as an outpatient, and his outpatient diuretic regimen had been escalated to torsemide 40 twice daily as of his recent nephrology visit on 04/27/2021. Chemistry panel performed 05/12/2021 revealed worsening creatinine up to 3.5, estimated GFR 15 mL/min/m as compared to recent creatinine in the range of 2.5 to 3.2 mg/dL. History / Problem List: 1. Previously followed by cardiology for moderate aortic stenosis, normal LVEF, 55%, echocardiogram, November, 2. T-cell lymphoma treated with chemotherapy, now under treatment for myelodysplastic syndrome 3. Hospital stay March,, with new systolic heart failure, non-STEMI managed medically due to acute on chronic renal insufficiency, LVEF 25% at that time, underwent bilateral thoracentesis 4. Atrial fibrillation with rapid ventricular response during March, hospital stay, converted to sinus rhythm and maintained on amiodarone and Coumadin. 5. Ischemic left foot, felt to be embolic from atrial fibrillation, surgical embolectomy attempted, but only partially successful 6. Left bundle branch block, 05/14/2021 EKG revealing QRS duration up to 178 ms compared to a QRS duration of 150 ms February, Left bundle branch block is a chronic finding, dating back to previous EKG performed in 2018 7.Stage 3B to 4 CKD with recent ERICK Allergies Allergy/AdvReac Type Severity Reaction Status Date / Time RYLEE Inhibitors AdvReac Intermediate Renal Verified 05/14/21 18:29 Complications Home Medications Medication Instructions Recorded Confirmed Type azelastine 137 mcg (0.1 %) nasal 2 spray INTRANASAL BID 03/11/21 05/14/21 History spray aerosol cholecalciferol (vitamin D3) 25 25 mcg PO DAILY 03/11/21 05/14/21 History mcg (1,000 unit) tablet (Vitamin D3) cyanocobalamin (vitamin B-12) 1,000 mcg PO DAILY 03/11/21 05/14/21 History 1,000 mcg tablet (Vitamin B-12) epoetin abel 40,000 unit/mL 40,000 unit SUBCUT DIRECTED 03/11/21 05/14/21 History injection solution (Procrit) fluticasone propionate 50 1 spray INTRANASAL DAILY 03/11/21 05/14/21 History mcg/actuation nasal spray,suspension levothyroxine 75 mcg tablet 75 mcg PO DAILYBB 03/11/21 05/14/21 History pyridoxine (vitamin B6) 100 mg 100 mg PO BID 03/11/21 05/14/21 History tablet (Vitamin B-6) triamcinolone acetonide 0.1 % 1 applic TOPICAL HS PRN 03/11/21 05/14/21 History topical ointment aspirin 81 mg tablet,delayed 81 mg PO QAM #30 tab 03/20/21 05/14/21 Rx release amiodarone 200 mg tablet 200 mg PO DAILY 05/14/21 05/14/21 History metoprolol succinate 25 mg 25 mg PO DAILY 05/14/21 05/14/21 History tablet,extended release 24 hr torsemide 20 mg tablet 40 mg PO DAILY 05/14/21 05/14/21 History warfarin 2 mg tablet 1 - 2 mg PO UD 05/14/21 05/14/21 History Patient History Medical History Anemia in CKD (chronic kidney disease) CKD (chronic kidney disease) stage 3, GFR 30-59 ml/min CLL (chronic lymphocytic leukemia) H/O: rheumatic fever HTN (hypertension) LBBB (left bundle branch block) MDS (myelodysplastic syndrome), low grade Nocturnal hypoxemia HAWA (obstructive sleep apnea) Prostate cancer Tobacco use disorder Surgical History H/O uvulectomy S/P tonsillectomy and adenoidectomy Family History Other Family history non-contributory Social History Smoking Status: Former smoker Second Hand Exposure: No; Hx Alcohol Use: No Hx Substance Use: No Preferred Language: Frisian Communication Ability: Effective Implementation Coordinator Required: No Beliefs That Will Affect Care: None marital status: / Current Living Situation: Other Current Living Situation Comment: Pt lives with girlfriend Zaira Toledo How many Children do You have: 4 Other Information That Helps Us Care for You: No Feels Safe at Home: Yes Safety Concerns: Feels Safe At This Time Assistive Devices: CPAP Review of Systems Review of Systems: All systems reviewed & are unremarkable except as noted in HPI & below and Other (Recent difficulty sleeping) Physical Exam Constitutional: Chronically ill in appearance, no acute distress Respiratory: Decreased breath sounds, right worse than left Cardiovascular: Regular rhythm, 1/6 systolic murmur Gastrointestinal (Abdomen): normal bowel sounds, soft, nontender, no hepatosplenomegaly Musculoskeletal: Superficial erythema of the posterior distal left foot, at the heel. Neurologic: PERRL, EOMI, accommodation nl, no face palsy, no dysarthria Results & Data ([facility]) Vital Signs (Past 12 Hours) Vital Signs Temp Pulse Pulse Resp BP Pulse Ox 05/15/21 08:00 64 05/15/21 07:57 36.6 C 67 16 109/64 98 05/15/21 03:47 36.3 C L 66 22 101/65 98 Laboratory Results Cardiac Enzymes 05/14/21 05/15/21 05/15/21 Range/Units 16:50 05:29 05:31 AST 122 H 79 H (15-37) U/L Troponin I 0.055 H* 0.049 H* (0-0.045) ng/ml Coagulation INR: 05/15/2021, 3.6 05/14/21 05/15/21 Range/Units 16:50 05:29 PT 37.3 H 33.3 H (9.0-12.0) Seconds APTT 49.2 H* (21.0-31.0) Seconds CBC 05/14/21 05/15/21 Range/Units 16:50 05:29 WBC 9.27 9.25 (4.8-10.8) K/uL RBC 2.62 L 2.47 L (4.7-6.1) M/uL Hgb 10.0 L 9.2 L (14.0-18.0) g/dL Hct 30.4 L 28.5 L (42-52) % Plt Count 373 314 (130-400) K/uL Neut # (Auto) 3.26 4.71 (1.4-6.5) K/uL Lymph # (Auto) 4.94 H 3.55 H (1.2-3.4) K/uL Gilmer # (Auto) 0.89 H 0.86 H (0.11-0.59) K/uL Eos # (Auto) 0.11 0.06 (0-0.5) K/uL Baso # (Auto) 0.04 0.04 (0-0.2) K/uL Comprehensive Metabolic Panel 05/14/21 05/15/21 05/15/21 Range/Units 16:50 05:29 05:31 Sodium 134 L 136 (136-145) mmol/L Potassium 3.0 L 3.7 D (3.5-5.1) mmol/L Chloride 97 L 99 (98-107) mmol/L Carbon Dioxide 28 27 (21-32) mmol/L BUN 85 H 80 H (7-18) mg/dl Creatinine 3.83 H 3.48 H D (0.6-1.4) mg/dl Glucose 112 H 114 H (70-99) mg/dl Calcium 8.8 8.9 (8.5-10.1) mg/dl Direct Bilirubin 0.7 H (0-0.2) mg/dl AST 122 H 79 H (15-37) U/L ALT 294 H 221 H (12-78) Alkaline Phosphatase 304 H D 220 H D (45-117) U/L Total Protein 7.1 6.0 L (6.4-8.2) gm/dl Albumin 3.6 3.2 L (3.4-5.0) gm/dl Intake and Output 05/14/21 05/15/21 05/15/21 22:59 06:59 14:59 Intake Total 120 / 120 Output Total 750 / 750 Balance -630 / -630 Intake: Oral 120 / 120 Output: Urine Amount (Catheter) 750 / 750 Anthony/Indwelling 750 / 750 Other: Weight 83.1 kg Weight Measurement Method Built in [facility]
--- NOTE | 2021-05-15 12:17 | Electrocardiogram Report ---
Test Reason : Blood Pressure : / mmHG Vent. Rate : 061 BPM Atrial Rate : 061 BPM P-R Int : 180 ms QRS Dur : 178 ms QT Int : 502 ms P-R-T Axes : 065 030 191 degrees QTc Int : 505 ms Sinus rhythm with frequent Premature ventricular complexes and Fusion complexes Left bundle branch block Abnormal ECG When compared with ECG of 16-MAR-2021 15:50, Fusion complexes are now Present Premature ventricular complexes are now Present Premature atrial complexes are no longer Present Confirmed by Segundo Page ([id number]) on 05/15/2021 12:16:46 PM Referred By: Confirmed By:Segundo Page
[2021-05-15] MEDS: FUROSEMIDE 40 MG/4 ML VIAL IV SCH ×2 (14:48→20:28)
--- NOTE | 2021-05-15 18:25 | Hospitalist Progress Note ---
Date of Service May 15, 2021 Assessment & Plan (1) Acute on chronic HFrEF (heart failure with reduced ejection fraction): Plan: recent heart failure syndrome described. Has underlying presumed ischemic cardiomyopathy with an EF 25% and is wearing a life vest which was given to him on hospital discharge 03/20/21. He is responding well to intravenous diuresis with furosemide. Cont lyte replacement as needed. Cont management per cardiology. Continues on Toprol XL and aspirin. RYLEE/ARB contraindicated in renal disease. Not on statin therapy currently as atorvastatin 40mg (given to him at recent hospital discharge) was placed on hold by outpaient cardiology provider prior to arrival in setting of elevated LFTs. Cont current management. Will add atorvastatin to outpatient medication regimen now and continue holding pending LFT normalization. (2) Acute kidney injury superimposed on chronic kidney disease: Plan: Recent increased diuretic use as outpatient prior to hospitalization. Possible etiology also cardiorenal syndrome per nephro Baseline creat 2.5. Creatinine improved with diuretic therapy. Cont current management. (3) Ischemic cardiomyopathy: Plan: presumed, cont current medical management. (4) Ventricular tachycardia: Plan: maintains life vest and NSR. (5) Atrial fibrillation: Plan: Continue amiodarone, Toprol-XL. Warfarin on hold in setting of initial supratherapeutic INR. (6) Aortic stenosis: (7) Elevated transaminase level: Plan: Likely secondary to congestive hepatopathy, right upper quadrant ultrasound is pending (8) Anemia in CKD (chronic kidney disease): Plan: Continues on Procrit as outpatient. (9) DVT prophylaxis: Plan: Therapeutic INR, pending hold on warfarin Full code Disposition-continue PCU pending cardiology clearance Sowmya Bishop DO [facility] and Anticipated Discharge Date Admission Date: May 14, 2021 Subjective 81 yo M presented with minimal exertion and progressive lower extremity edema. He has had a recent increase in diuretic therapy and was admitted for management of acute heart failure and acute on chronic kidney injury. Today he reports feeling well although is generally agitated about the bed, his pillows, and the environment, etc Reports no SOB or chest pain states that he is here because he was sent in here tolerating PO Review of Systems Review of Systems: All systems were reviewed and negative except as indicated in subjective above. Physical Exam Physical Exam: CONSTITUTIONAL: WNWD, vitals as above, generally well- appearing EYES: normal conjunctivae, no scleral icterus ENT: external ear and nose normal, oropharynx clear NECK: trachea midline RESPIRATORY: clear to auscultation bilaterally but breath sounds are diminished. No crackles, rales or wheezes, normal respiratory effort CARDIOVASCULAR: regular rate and rhythm, S1 and 2 heard without murmurs, gallops or rubs, no JVD, no peripheral edema CHEST: inspection of chest was normal GASTROINTESTINAL: soft, nontender, ND, no guarding MUSCULOSKELETAL: strength 5/5 throughout, head is normocephalic and atraumatic, neck supple, normal palpation of chest wall without tenderness SKIN: warm and dry NEUROLOGIC: CN 2-12 grossly intact, no sensory deficit, normal cognition, normal speech, no tremor, no gross focal deficit, however, gait was not assessed. PSYCHIATRIC: alert cooperative and oriented to person, place and time. Results & Data Results & Data ([facility]) Vital Signs (Past 12 Hours) Vital Signs Temp Pulse Pulse Resp BP Pulse Ox 05/15/21 15:50 36.5 C 79 18 105/66 96 05/15/21 15:47 64 05/15/21 11:48 36.6 C 71 18 118/68 95 05/15/21 08:00 64 05/15/21 07:57 36.6 C 67 16 109/64 98 Laboratory Results Short CBC 05/15/21 Range/Units 05:29 WBC 9.25 (4.8-10.8) K/uL Hgb 9.2 L (14.0-18.0) g/dL Hct 28.5 L (42-52) % Plt Count 314 (130-400) K/uL [facility] 05/15/21 05/15/21 05:29 16:18 Sodium 136 Potassium 3.7 D 3.5 Chloride 99 Carbon Dioxide 27 BUN 80 H Creatinine 3.48 H D Glucose 114 H Calcium 8.9 Cardiac Enzymes 05/15/21 Range/Units 05:29 Troponin I 0.049 H* (0-0.045) ng/ml Liver Function 05/15/21 Range/Units 05:31 Total Bilirubin 1.5 H (0.2-1) mg/dl Direct Bilirubin 0.7 H (0-0.2) mg/dl AST 79 H (15-37) U/L ALT 221 H (12-78) Alkaline Phosphatase 220 H D (45-117) U/L Albumin 3.2 L (3.4-5.0) gm/dl Medications Administered Current Inpatient Medications Acetaminophen (Acetaminophen 325 Mg Tab) 650 mg PO Q4H PRN PRN Reason: Pain or Fever Stop: 06/13/21 23:10 Amiodarone HCl (Amiodarone 200 Mg Tab) 200 mg PO DAILY ABAD Stop: 06/14/21 08:59 Last Admin: 05/15/21 08:11 Dose: 200 mg Documented by: Aspirin (Aspirin 81 Mg Ectab) 81 mg PO QAM ABAD Stop: 06/14/21 08:59 Last Admin: 05/15/21 08:10 Dose: 81 mg Documented by: Azelastine HCl (Azelastine Hcl 0.1% Nasal 200 Sprays/27,400 Mcg Btl) 2 sprays NA BID ABAD Stop: 06/13/21 23:44 Last Admin: 05/15/21 08:11 Dose: 2 sprays Documented by: Cyanocobalamin (Cyanocobalamin 500 Mcg Tablet (Vitamin B-12)) 1,000 mcg PO DAILY ABAD Stop: 06/14/21 08:59 Last Admin: 05/15/21 08:12 Dose: 1,000 mcg Documented by: Fluticasone Propionate (Fluticasone Propionate Na Spr 16 Gm Btl) 1 sprays NA DAILY ABAD Stop: 06/14/21 08:59 Last Admin: 05/15/21 08:11 Dose: 1 sprays Documented by: Furosemide (Furosemide 40 Mg/4 Ml Vial) 40 mg IV TID ABAD Stop: 06/14/21 13:59 Last Admin: 05/15/21 14:48 Dose: 40 mg Documented by: Levothyroxine Sodium (Levothyroxine Sodium 75 Mcg Tablet) 75 mcg PO DAILYBB ABAD Stop: 06/14/21 06:29 Last Admin: 05/15/21 04:51 Dose: 75 mcg Documented by: Melatonin (Melatonin 3 Mg Tab) 3 mg PO HS PRN PRN Reason: Sleep Stop: 06/14/21 00:39 Metoprolol Succinate (Metoprolol Succ 25mg Ext Rel Tab) 25 mg PO PM ABAD Stop: 06/14/21 20:59 Nitroglycerin (Nitroglycerin Sl 0.4 Mg/Tab Tab) 0.4 mg SL UD PRN PRN Reason: Chest Pain Stop: 06/13/21 23:10 Pyridoxine HCl (Pyridoxine Hcl 50 Mg Tab) 100 mg PO BID ABAD Stop: 06/13/21 23:44 Last Admin: 05/15/21 08:12 Dose: 100 mg Documented by: Triamcinolone Acetonide (Triamcinolone Acet 0.1% Oint 15 Gm Tube) 1 appln TOP HS PRN PRN Reason: Rash Stop: 06/13/21 23:10 Vitamin D (Cholecalciferol 1,000 Units 25 Mcg Tab) 1,000 units PO DAILY ABAD Stop: 06/14/21 08:59 Last Admin: 05/15/21 08:11 Dose: 1,000 units Documented by:
[2021-05-16] MEDS: LEVOTHYROXINE SODIUM 75 MCG TABLET PO SCH (06:03)
[2021-05-16 06:21] LABS: INR 3.2 (0.9-1.1); Prothrombin Time 29.2 Seconds (9.0-12.0)
[2021-05-16 06:38] LABS: Albumin Level 2.8 gm/dl (3.4-5.0); BUN Creatinine Ratio 23.9 (10-20); Calcium 8.4 mg/dl (8.5-10.1); Creatinine Clr Calc Pharmacy 20.1 ml/min; Est GFR (African American) 23.7 ml/min; Est GFR (Non-African American) 20.5 ml/min; Potassium 3.1 mmol/L (3.5-5.1)
[2021-05-16 06:41] LABS: Albumin Globulin Ratio 0.9 (0.9-2); Bilirubin,Total 1.7 mg/dl (0.2-1); Total Protein 5.8 gm/dl (6.4-8.2)
[2021-05-16] MEDS: PYRIDOXINE HCL 50 MG TAB PO SCH ×2 (08:05→20:42)
[2021-05-16] MEDS: CYANOCOBALAMIN 500 MCG TABLET (VITAMIN B-12) PO SCH (08:05)
[2021-05-16] MEDS: AZELASTINE HCL 0.1% NASAL 200 SPRAYS/27,400 MCG BTL SCH ×2 (08:05→20:42)
[2021-05-16] MEDS: ASPIRIN 81 MG ECTAB PO SCH (08:05)
[2021-05-16] MEDS: CHOLECALCIFEROL 1,000 UNITS 25 MCG TAB PO SCH (08:06)
[2021-05-16] MEDS: FUROSEMIDE 40 MG/4 ML VIAL IV SCH ×3 (08:06→20:42)
[2021-05-16] MEDS: AMIODARONE 200 MG TAB PO SCH (08:06)
[2021-05-16] MEDS: FLUTICASONE PROPIONATE NA SPR 16 GM BTL SCH (08:06)
--- NOTE | 2021-05-16 08:25 | Ultrasound Report ---
ABDOMINAL ULTRASOUND, RIGHT UPPER QUADRANT HISTORY: elevated lft. COMPARISON: Renal ultrasound 03/11/2021. FINDINGS: Pancreas: The visualized pancreas demonstrates a normal echotexture. Liver: 16 cm in length. The main portal vein is patent. There is a 9 mm cyst within the left hepatic lobe. Trace perihepatic ascites is noted. Gallbladder: There are few small stones near the neck of the gallbladder. The gallbladder wall is dif fusely thickened up to 4 mm. Negative sonographic Bradley's sign. CBD: 4 mm. Right kidney: No hydronephrosis. A 9 mm lower pole cyst. Miscellaneous: Large right pleural effusion. IMPRESSION: 1. Cholelithiasis. Diffuse gallbladder wall thickening is likely due to the patient's edematous state as there is a negative sonographic Bradley sign. Therefore, acute cholecystitis is considered less li britta. 2. Hepatic and right renal cyst. 3. Large right pleural effusion. ACT 112: Negative or not required by law. Electronically signed by: Geovanni East M.D. 05/16/2021 8:24 AM
[2021-05-16] MEDS: POTASSIUM CHLORIDE CRTAB 20 MEQ TABCR PO SCH ×2 (09:18→16:11)
--- NOTE | 2021-05-16 11:17 | Nephrology Progress Note ---
Date of Service May 16, 2021 Assessment & Plan (1) Acute kidney injury superimposed on chronic kidney disease: Plan: Patient with acute kidney injury on CKD likely due to cardiorenal syndrome. Baseline creatinine of 2.5. Admission creatinine of 3.8 and downtrending 3.48 today. He does have volume overload. -Lasix to 40 mg IV 3 times daily. -Agree with potassium chloride 40 mEq twice today -Monitor input output -Daily BMP (2) Acute decompensated heart failure: Plan: Patient with a low EF of 25% and pulmonary hypertension. We will continue diuresis with IV Lasix as above. Patient was net -2.4 mL this morning. Admission and Anticipated Discharge Date Admission Date: May 14, 2021 Subjective Seen for ERICK and CHF. No shortness of breath. He is making urine. Potassium is low. Review of Systems Review of Systems: All other systems were reviewed and negative except as noted in HPI Physical Exam Physical Exam: General exam: Appears comfortable, no acute distress HEENT: Pupils are equal and reactive to light Neck: No JVD, neck is supple trachea is midline Respiratory system: Clear breath sounds bilaterally. Gastrointestinal: Abdomen is soft, non distended, non tender, bowel sounds are present CVS: Regular rate and rhythm. No murmurs, rubs or gallops Musculoskeletal: No joint or muscle tenderness Extremities: Non tender, 1+ edema, peripheral pulses are present Neuro: Oriented, no tremors, no focal neurological deficits Skin: No rashes Results & Data ([facility]) Vital Signs (Past 12 Hours) Vital Signs Temp Pulse Pulse Resp BP Pulse Ox 05/16/21 08:00 61 05/16/21 07:09 36.6 C 88 19 120/73 96 05/16/21 03:31 36.3 C L 63 16 91/53 L 94 Laboratory Results 05/16/21 05:39 05/15/21 05/16/21 05:31 05:39 Albumin 3.2 L 2.8 L
--- NOTE | 2021-05-16 12:55 | Electrocardiogram Report ---
Test Reason : Blood Pressure : / mmHG Vent. Rate : 069 BPM Atrial Rate : 069 BPM P-R Int : 210 ms QRS Dur : 184 ms QT Int : 492 ms P-R-T Axes : 080 022 174 degrees QTc Int : 527 ms Sinus rhythm with 1st degree A-V block with occasional Premature ventricular complexes Left bundle branch block Abnormal ECG When compared with ECG of 14-MAY-2021 15:58, Fusion complexes are no longer Present VT interval has increased Confirmed by Segundo Page ([id number]) on 05/16/2021 12:55:01 PM Referred By: Ros Maynard Confirmed By:Segundo Page
--- NOTE | 2021-05-16 13:11 | Electrocardiogram Report ---
Test Reason : Blood Pressure : / mmHG Vent. Rate : 058 BPM Atrial Rate : 058 BPM P-R Int : 204 ms QRS Dur : 182 ms QT Int : 538 ms P-R-T Axes : 083 028 209 degrees QTc Int : 528 ms Sinus bradycardia Left bundle branch block Abnormal ECG When compared with ECG of 15-MAY-2021 12:57, (unconfirmed) Premature ventricular complexes are no longer Present Confirmed by Segundo Page ([id number]) on 05/16/2021 1:11:05 PM Referred By: Ros Maynard Confirmed By:Segundo Page
--- NOTE | 2021-05-16 16:39 | Cardiology Progress Note ---
Date of Service May 16, 2021 Assessment & Plan (1) Acute on chronic HFrEF (heart failure with reduced ejection fraction): Plan: 1. Acute on chronic heart failure with reduced ejection fraction, in the setting of presumed ischemic cardiomyopathy based on appearance of echocardiogram and regional wall motion abnormalities, as well as left bundle branch block, wide QRS duration, recently up to 180 ms. Noted right pleural effusion. 2. Acute kidney injury on chronic kidney disease, recent baseline creatinine 2.5-3.2, was 3.8 on presentation 05/14/2021, improved to 2.79 mg/dL today 05/16/2021. 3. Myelodysplastic syndrome, with Procrit support for anemia 4. Likely underlying moderate aortic stenosis 5. Left lower extremity heel pain Discussion/recommendations: Echocardiogram performed 05/15/2021 reveals ongoing severe left ventricular systolic dysfunction, LVEF 25%. Grade 2 diastolic dysfunction also noted, estimated pulmonary artery systolic pressure 70 mmHg. * Continue oral amiodarone 200 mg daily. * Transaminases are trending down, elevation likely due to congestive hepatopathy. * Coumadin on hold for INR of 3.2 today 05/16/2021 * Continue furosemide 40 mg IV 3 times daily. * Will discuss left heel pain with vascular surgery tomorrow. * Ultimately, would like to proceed with pharmacologic nuclear stress testing once volume status improved and consideration of a SOFTWARE TEST ANALYST capable ICD however he to try to prevent any infection in advance of such a procedure. Patient noted to have embolic event to the left lower extremity in the setting of atrial fibrillation and PAD at time of previous admission 5 weeks ago. Admission and Anticipated Discharge Date Admission Date: May 14, 2021 Subjective Patient seen in follow-up. He feels subjectively improved from shortness of breath and lower extremity edema standpoint. His most significant complaint is ongoing left posterior heel pain. Telemetry reveals sinus rhythm with first- degree AV block in the 60s. Ongoing left bundle branch block noted. Review of Systems Review of Systems: All systems reviewed & are unremarkable except as noted in HPI & below Physical Exam Physical Exam: Temp Pulse Resp BP Pulse Ox 36.4 C L 64 18 99/61 L 97 05/16/21 15:09 05/16/21 15:59 05/16/21 15:09 05/16/21 15:09 05/16/21 15:09 Constitutional: + ill appearing; no acute distress Respiratory: Mildly decreased breath sounds the bases Cardiovascular: Rate/Rhythm: regular rate Heart Sounds: + murmur (1/6 systolic murmur) Extremities: + edema (Edema resolved) Gastrointestinal (Abdomen): normal bowel sounds, soft, nontender, no hepatosplenomegaly Neurologic: PERRL, EOMI, accommodation nl, no face palsy, no dysarthria Results & Data ([facility]) Vital Signs (Past 12 Hours) Vital Signs Temp Pulse Pulse Resp BP Pulse Ox 05/16/21 15:59 64 05/16/21 15:09 36.4 C L 62 18 99/61 L 97 05/16/21 12: 36.6 C 63 20 92/57 L 98 05/16/21 08:00 61 05/16/21 07:09 36.6 C 88 19 120/73 96 Laboratory Results INR 3.2 Potassium 3.1 BUN 67 Creatinine 2.7 mg/dL Diagnostic Findings EKG performed today 05/16/2021 reviewed independently: Sinus bradycardia 50 bpm, first-degree AV block, left bundle branch block, QRS duration 180 ms.
[2021-05-16] MEDS: METOPROLOL SUCC 25MG EXT REL TAB PO SCH (20:42)
[2021-05-16] MEDS: MELATONIN 3 MG TAB PO PRN (20:46)
[2021-05-16] MEDS ORDERED: DOCUSATE SODIUM/SENNA 50/8.6MG TAB PO STA (20:50)
--- NOTE | 2021-05-16 21:36 | Hospitalist Progress Note ---
Date of Service May 16, 2021 Assessment & Plan (1) Acute on chronic HFrEF (heart failure with reduced ejection fraction): Plan: recent heart failure syndrome described. Has underlying presumed ischemic cardiomyopathy with an EF 25% and is wearing a life vest which was given to him on hospital discharge 03/20/21. He is responding well to intravenous diuresis with furosemide-continues on this now. Cont potassium replacement as needed. Cont management per cardiology. Continues on Toprol XL and aspirin. RYLEE/ARB contraindicated in renal disease. Not on statin therapy currently as atorvastatin 40mg (given to him at recent hospital discharge) was placed on hold by outpatient cardiology provider prior to arrival in setting of elevated LFTs. Cont current management. Will add atorvastatin to outpatient medication regimen now and continue holding pending LFT normalization. (2) Acute kidney injury superimposed on chronic kidney disease: Plan: Recent increased diuretic use as outpatient prior to hospitalization. Possible etiology also cardiorenal syndrome per nephro. Baseline creat 2.5. Creatinine improved with diuretic therapy. Cont current management. (3) Ischemic cardiomyopathy: Plan: presumed, cont current medical management. (4) Ventricular tachycardia: Plan: maintains life vest and NSR on telemetry overnight. (5) Atrial fibrillation: Plan: Continue amiodarone, Toprol-XL. Warfarin restarted now that INR 3.2. (6) Pain of left heel: Plan: Dr. Crawford performed a thrombectomy of his left lower extremity in Mar 2021 post NSTEMI and bilateral thoracentesis. He is subsequently developed purplish rash on his left heel that is painful and appears embolic in nature. There is also a small wound in the same area. Cardiology is touching base with vascular surgery in a.m. for further recommendations. Continue anticoagulation. (7) Aortic stenosis: (8) Elevated transaminase level: Plan: Improving. Likely secondary to congestive hepatopathy, right upper quadrant ultrasound is within normal limits. Would restart atorvastatin at discharge. (9) Anemia in CKD (chronic kidney disease): Plan: Continues on Procrit as outpatient. (10) DVT prophylaxis: Plan: Therapeutic INR, restart warfarin Full code Disposition-continue PCU pending cardiology clearance Sowmya Bishop DO [facility] Hospitalist Admission and Anticipated Discharge Date Admission Date: May 14, 2021 Subjective 81 yo M presented with minimal exertion and progressive lower extremity edema. He has had a recent increase in diuretic therapy and was admitted for management of acute heart failure and acute on chronic kidney injury. Today he reports feeling well Denies any shortness of breath or chest pain however, he has not gotten out of bed today. PT and OT orders were placed. Son was at bedside We discussed patient's pain in his left heel and further evaluation reveals purplish embolic appearing phenomena Patient reports pain in his heel. Review of Systems Review of Systems: All systems were reviewed and negative except as indicated in subjective above. Physical Exam Physical Exam: CONSTITUTIONAL: WNWD, vitals as above, generally well- appearing, NAD EYES: normal conjunctivae, no scleral icterus ENT: external ear and nose normal, oropharynx clear NECK: trachea midline RESPIRATORY: crackles at right base, otherwise, no rales or wheezes, normal respiratory effort CARDIOVASCULAR: regular rate and rhythm, S1 and 2 heard without murmurs, gallops or rubs, no JVD, no peripheral edema CHEST: inspection of chest was normal GASTROINTESTINAL: soft, nontender, ND, no guarding MUSCULOSKELETAL: moves all extremities equally, however, generally weak. Cannot sit up in bed independently. Head is normocephalic and atraumatic, neck supple, normal palpation of chest wall without tenderness SKIN: warm and dry, purplish embolic appearing phenomena on left heal with min wound overlying this area. NEUROLOGIC: CN 2-12 grossly intact, no sensory deficit, normal cognition, normal speech, no tremor, no gross focal deficit, however, gait was not assessed. PSYCHIATRIC: alert cooperative and oriented to person, place and time. Results & Data Results & Data ([facility]) Vital Signs (Past 12 Hours) Vital Signs Temp Pulse Pulse Resp BP Pulse Ox 05/16/21 20:38 78 107/74 05/16/21 19:41 36.6 C 64 17 99/64 L 99 05/16/21 15:59 64 05/16/21 15:09 36.4 C L 62 18 99/61 L 97 05/16/21 12: 36.6 C 63 20 92/57 L 98 Laboratory Results [facility] 05/16/21 05:39 Sodium 141 Potassium 3.1 L Chloride 103 Carbon Dioxide 27 BUN 67 H Creatinine 2.79 H D Glucose 112 H Calcium 8.4 L Liver Function 05/16/21 Range/Units 05:39 Total Bilirubin 1.7 H (0.2-1) mg/dl AST 44 H (15-37) U/L ALT 155 H (12-78) Alkaline Phosphatase 188 H (45-117) U/L Albumin 2.8 L (3.4-5.0) gm/dl Diagnostic Findings BMP 05/16/21 05:39 Sodium 141 Potassium 3.1 L Chloride 103 Carbon Dioxide 27 BUN 67 H Creatinine 2.79 H D Glucose 112 H Calcium 8.4 L Liver Function 05/16/21 Range/Units 05:39 Total Bilirubin 1.7 H (0.2-1) mg/dl AST 44 H (15-37) U/L ALT 155 H (12-78) Alkaline Phosphatase 188 H (45-117) U/L Albumin 2.8 L (3.4-5.0) gm/dl Medications Administered Current Inpatient Medications Acetaminophen (Acetaminophen 325 Mg Tab) 650 mg PO Q4H PRN PRN Reason: Pain or Fever Stop: 06/13/21 23:10 Amiodarone HCl (Amiodarone 200 Mg Tab) 200 mg PO DAILY ABAD Stop: 06/14/21 08:59 Last Admin: 05/16/21 08:06 Dose: 200 mg Documented by: Aspirin (Aspirin 81 Mg Ectab) 81 mg PO QAM ABAD Stop: 06/14/21 08:59 Last Admin: 05/16/21 08:05 Dose: 81 mg Documented by: Azelastine HCl (Azelastine Hcl 0.1% Nasal 200 Sprays/27,400 Mcg Btl) 2 sprays NA BID ABAD Stop: 06/13/21 23:44 Last Admin: 05/16/21 20:42 Dose: 2 sprays Documented by: Cyanocobalamin (Cyanocobalamin 500 Mcg Tablet (Vitamin B-12)) 1,000 mcg PO DAILY ABAD Stop: 06/14/21 08:59 Last Admin: 05/16/21 08:05 Dose: 1,000 mcg Documented by: Fluticasone Propionate (Fluticasone Propionate Na Spr 16 Gm Btl) 1 sprays NA DAILY ABAD Stop: 06/14/21 08:59 Last Admin: 05/16/21 08:06 Dose: Not Given Documented by: Furosemide (Furosemide 40 Mg/4 Ml Vial) 40 mg IV TID ABAD Stop: 06/14/21 13:59 Last Admin: 05/16/21 20:42 Dose: 40 mg Documented by: Levothyroxine Sodium (Levothyroxine Sodium 75 Mcg Tablet) 75 mcg PO DAILYBB ABAD Stop: 06/14/21 06:29 Last Admin: 05/16/21 06:03 Dose: 75 mcg Documented by: Melatonin (Melatonin 3 Mg Tab) 3 mg PO HS PRN PRN Reason: Sleep Stop: 06/14/21 00:39 Last Admin: 05/16/21 20:46 Dose: 3 mg Documented by: Metoprolol Succinate (Metoprolol Succ 25mg Ext Rel Tab) 25 mg PO PM ABAD Stop: 06/14/21 20:59 Last Admin: 05/16/21 20:42 Dose: 25 mg Documented by: Nitroglycerin (Nitroglycerin Sl 0.4 Mg/Tab Tab) 0.4 mg SL UD PRN PRN Reason: Chest Pain Stop: 06/13/21 23:10 Polyethylene Glycol (Polyethylene (Miralax) 17 Gm Pack) 17 gm PO DAILY PRN PRN Reason: Constipation Stop: 06/15/21 20:48 Pyridoxine HCl (Pyridoxine Hcl 50 Mg Tab) 100 mg PO BID [facility] Stop: 06/13/21 23:44 Last Admin: 05/16/21 20:42 Dose: 100 mg Documented by: Senna/Docusate Sodium (Docusate Sodium/Senna 50/8.6mg Tab) 1 tab PO HS [facility] Stop: 06/16/21 20:59 Triamcinolone Acetonide (Triamcinolone Acet 0.1% Oint 15 Gm Tube) 1 appln TOP HS PRN PRN Reason: Rash Stop: 06/13/21 23:10 Vitamin D (Cholecalciferol 1,000 Units 25 Mcg Tab) 1,000 units PO DAILY [facility] Stop: 06/14/21 08:59 Last Admin: 05/16/21 08:06 Dose: 1,000 units Documented by: Warfarin Sodium (Warfarin Sod 2 Mg Tab) 2 mg PO DAILY@1600 [facility] Stop: 06/16/21 15:59
[2021-05-17] MEDS: ACETAMINOPHEN 325 MG TAB PO PRN (01:04)
[2021-05-17] MEDS ORDERED: LORazepam 0.5 MG TAB PO STA (03:01)
[2021-05-17] MEDS: LEVOTHYROXINE SODIUM 75 MCG TABLET PO SCH (05:20)
[2021-05-17] MEDS: AMIODARONE 200 MG TAB PO SCH (08:04)
[2021-05-17] MEDS: ASPIRIN 81 MG ECTAB PO SCH (08:04)
[2021-05-17] MEDS: FUROSEMIDE 40 MG/4 ML VIAL IV SCH ×3 (08:05→15:53)
[2021-05-17] MEDS: CYANOCOBALAMIN 500 MCG TABLET (VITAMIN B-12) PO SCH (08:05)
[2021-05-17] MEDS: CHOLECALCIFEROL 1,000 UNITS 25 MCG TAB PO SCH (08:05)
[2021-05-17] MEDS: AZELASTINE HCL 0.1% NASAL 200 SPRAYS/27,400 MCG BTL SCH ×2 (08:05→21:06)
[2021-05-17] MEDS: FLUTICASONE PROPIONATE NA SPR 16 GM BTL SCH (08:05)
[2021-05-17] MEDS: PYRIDOXINE HCL 50 MG TAB PO SCH ×2 (08:06→21:05)
--- NOTE | 2021-05-17 09:51 | Nephrology Progress Note ---
Date of Service May 17, 2021 Assessment & Plan (1) Acute kidney injury superimposed on chronic kidney disease: Plan: Patient with acute kidney injury on CKD likely due to cardiorenal syndrome. Baseline creatinine of 2.5. Admission creatinine of 3.8 and downtrending 3.48 as of yesterday > labs from today pending. He does have volume overload. -Lasix to 40 mg IV 3 times daily to continue -Had 2 doses x 40 MEq K yesterday ; await reading today -Monitor input output -Daily BMP (2) Acute decompensated heart failure: Plan: Patient with a low EF of 25% and pulmonary hypertension. We will continue diuresis with IV Lasix as above. Patient was net -700 mL so far this morning. Admission and Anticipated Discharge Date Admission Date: May 14, 2021 Subjective feels his breathing is better - though also for the most part in bed, not exerting. L foot/ heel have become exquisitely sore again. vascular to reassess. also c/o mild constipation relieved by stool softener Review of Systems Review of Systems: All systems reviewed & are unremarkable except as noted in Subjective Physical Exam Constitutional: well developed and well nourished; no acute distress Eyes: EOM intact bilaterally ENMT: Ears: no external ear abnormality Nose: no external nose abnormality Mouth: + dry oral mucous membranes Neck: no nuchal rigidity Respiratory: normal respiratory effort Auscultation: lungs clear to auscultation bilaterally and + diminished lung sounds Cardiovascular: Rate/Rhythm: regular rate and regular rhythm Extremities: + edema (at most trace BL ankle edema) Gastrointestinal (Abdomen): Inspection/Auscultation: normal bowel sounds Percussion/Palpation: abdomen soft; abdomen nontender Musculoskeletal: Extremities: strength 5/5 throughout Skin: no rashes, warm and dry scabs/redness L posterior heel and hyperesthesias Neurologic: [place], fluent speech, no tremor Psychiatric: Orientation: oriented x 3 Genitourinary: [place] w/ ample yellow urine Results & Data ([facility]) Vital Signs (Past 12 Hours) Vital Signs Temp Pulse Pulse Resp BP Pulse Ox 05/17/21 08:00 36.5 C 69 18 100/65 96 05/17/21 07:14 80 05/17/21 03:05 36.7 C 61 16 94/50 L 95 05/16/21 22:27 36.5 C 62 17 102/65 94 05/16/21 22:19 66 Laboratory Results 05/15/21 05:29 05/16/21 05:39
[2021-05-17] MEDS ORDERED: POTASSIUM CHLORIDE CRTAB 20 MEQ TABCR PO SCH (10:00)
--- NOTE | 2021-05-17 10:10 | Cardiology Progress Note ---
Date of Service May 17, 2021 Assessment & Plan (1) Acute on chronic HFrEF (heart failure with reduced ejection fraction): Plan: 1. Acute on chronic heart failure with reduced ejection fraction, in the setting of presumed ischemic cardiomyopathy based on appearance of echocardiogram and regional wall motion abnormalities, as well as left bundle branch block, wide QRS duration, recently up to 180 ms. Noted right pleural effusion. 2. Acute kidney injury on chronic kidney disease, recent baseline creatinine 2.5-3.2, was 3.8 on presentation 05/14/2021, improved to 2.79 mg/dL 05/16/2021. 05/17/21 labs pending 3. Myelodysplastic syndrome, with Procrit support for anemia 4. Likely underlying moderate aortic stenosis 5. Left lower extremity heel pain Discussion/recommendations: Echocardiogram performed 05/15/2021 reveals ongoing severe left ventricular systolic dysfunction, LVEF 25%. Grade 2 diastolic dysfunction also noted, estimated pulmonary artery systolic pressure 70 mmHg. * Continue oral amiodarone 200 mg daily. * Await labs. * Case discussed with Dr Garcia of Nephrology and Dr Crawford of vascular surgery * Although patient is at high risk for developing worsening renal insufficiency due to contrast nephropathy, we made need to accept that risk to allow investigation and treatment of the left foot, and work up of cardiomyopathy. * Starting with noninvasive duplex of the Left Lower extremity. * Likely nuclear perfusion study once volume status optimized as much as possible. * Need to address minimizing risk of LE infection before we could consider placing cardiac resynchronization capable ICD. Admission and Anticipated Discharge Date Admission Date: May 14, 2021 Subjective Patient seen in follow up of his chief complaint of MCCONNELL, fatigue, left heel pain. Breathing stable in bed, but SOB with minimal exertion. Left heel painful to touch. Telemetry reveals SR in the 60s. Review of Systems Review of Systems: All systems reviewed & are unremarkable except as noted in HPI & below Physical Exam Physical Exam: Temp Pulse Resp BP Pulse Ox 36.5 C 69 18 100/65 96 05/17/21 08:00 05/17/21 08:00 05/17/21 08:00 05/17/21 08:00 05/17/21 08:00 Constitutional: no acute distress Respiratory: Auscultation: + diminished lung sounds (decreased BS at the bases ); no crackles and no wheezes Gastrointestinal (Abdomen): normal bowel sounds, soft, nontender, no hepatosplenomegaly Musculoskeletal: left heal erythematous Neurologic: PERRL, EOMI, accommodation nl, no face palsy, no dysarthria Results & Data ([facility]) Laboratory Results Intake and Output 05/16/21 05/17/21 05/17/21 22:59 06:59 14:59 Intake Total 950 / 1250 300 / 1250 Output Total 1475 / 1926 451 / 1926 Balance -525 / -676 -151 / -676 Intake: Oral 950 / 1250 300 / 1250 Output: Urine 825 / 825 Urine Amount (Catheter) 650 / 1100 450 / 1100 Anthony/Indwelling 650 / 1100 450 / 1100 # Bowel Movements Other: Weight 80.4 kg Weight Measurement Method Built in [facility]
[2021-05-17 10:28] LABS: Hematocrit (blood only) 27.9 % (42-52); Hemoglobin 8.9 g/dL (14.0-18.0); Mean Corpuscular Hemoglobin 37.7 pg (25-34); Mean Corpuscular Hgb Conc 31.9 g/dL (32-36); Mean Corpuscular Volume 118.2 fL (80-100); Mean Platelet Volume 10.3 fL (7.4-10.4); Platelet Count 281 K/uL (130-400); RDW Coefficient of Variation 22.9 % (11.5-14.5); RDW Standard Deviation 97.3 fL (36.4-46.3); Red Blood Count 2.36 M/uL (4.7-6.1)
[2021-05-17 10:31] LABS: INR 2.6 (0.9-1.1); Prothrombin Time 24.5 Seconds (9.0-12.0)
[2021-05-17 11:06] LABS: BUN Creatinine Ratio 20.7 (10-20); Calcium 8.4 mg/dl (8.5-10.1); Creatinine Clr Calc Pharmacy 19.1 ml/min; Est GFR (African American) 22.4 ml/min; Est GFR (Non-African American) 19.3 ml/min; Magnesium 2.5 mg/dl (1.8-2.4); Potassium 3.9 mmol/L (3.5-5.1)
--- NOTE | 2021-05-17 11:26 | Consultation ---
Date of Consultation May 17, 2021 Assessment & Plan (1) Pain of left heel: Pt seen with Dr Crawford today. Pt with LLE heel pain, appearance consistent with pressure type wound. Recommend pt use pressure-alleviating measures to minimize tissue damage, since he does have known decreased flow to L foot and any wound will have difficulty healing. Does not appear infected at this time. Will obtain arterial US of LLE to eval flow. Patient was seen, examined, and chart reviewed. Agree with exam and treatment plan of the Vascular PA. History of Present Illness Reason for Consultation: L heel pain Attending Physician: Sowmya Bishop DO History of Present Illness 81 yo m with multiple medical problems, including a fib, ischemic cardiomyopathy, HTN, CKD, Luna, prostate ca, CLL, HAWA, CHF, anemia, admitted with acute on chronic heart failure, seen in consultation today for eval of L heel pain/discoloration. Pt previously treated by Dr Crawford for acute arterial occlusion on March 12, 2021 with open thrombectomy of LLE. Unfortunately, his arteries were only able to have successful intervention to the popliteal. Pt has been seen in f/u as outpt with similar exam. Pt states his L heel is painful. States has had signfiicant worsening of edema of BLE and has been trying to elevate them. Pt admits MCCONNELL, fatigue, and edema. Denies fever, chest pain, SOB at rest, abd pain, N/V, recent illness, L toe pain or discoloration, claudication, other complaints. No arterial imaging has been performed this admission. Allergies Allergy/AdvReac Type Severity Reaction Status Date / Time RYLEE Inhibitors AdvReac Intermediate Renal Verified 05/14/21 18:29 Complications Home Medications Medication Instructions Recorded Confirmed Type azelastine 137 mcg (0.1 %) nasal 2 spray INTRANASAL BID 03/11/21 05/14/21 History spray aerosol cholecalciferol (vitamin D3) 25 25 mcg PO DAILY 03/11/21 05/14/21 History mcg (1,000 unit) tablet (Vitamin D3) cyanocobalamin (vitamin B-12) 1,000 mcg PO DAILY 03/11/21 05/14/21 History 1,000 mcg tablet (Vitamin B-12) epoetin abel 40,000 unit/mL 40,000 unit SUBCUT DIRECTED 03/11/21 05/14/21 History injection solution (Procrit) fluticasone propionate 50 1 spray INTRANASAL DAILY 03/11/21 05/14/21 History mcg/actuation nasal spray,suspension levothyroxine 75 mcg tablet 75 mcg PO DAILYBB 03/11/21 05/14/21 History pyridoxine (vitamin B6) 100 mg 100 mg PO BID 03/11/21 05/14/21 History tablet (Vitamin B-6) triamcinolone acetonide 0.1 % 1 applic TOPICAL HS PRN 03/11/21 05/14/21 History topical ointment aspirin 81 mg tablet,delayed 81 mg PO QAM #30 tab 03/20/21 05/14/21 Rx release amiodarone 200 mg tablet 200 mg PO DAILY 05/14/21 05/14/21 History metoprolol succinate 25 mg 25 mg PO DAILY 05/14/21 05/14/21 History tablet,extended release 24 hr torsemide 20 mg tablet 40 mg PO DAILY 05/14/21 05/14/21 History warfarin 2 mg tablet 1 - 2 mg PO UD 05/14/21 05/14/21 History atorvastatin 40 mg tablet 40 mg PO HS 05/16/21 05/16/21 History Patient History Medical History Anemia in CKD (chronic kidney disease) CKD (chronic kidney disease) stage 3, GFR 30-59 ml/min CLL (chronic lymphocytic leukemia) H/O: rheumatic fever HTN (hypertension) LBBB (left bundle branch block) MDS (myelodysplastic syndrome), low grade Nocturnal hypoxemia HAWA (obstructive sleep apnea) Prostate cancer Tobacco use disorder Surgical History H/O uvulectomy S/P tonsillectomy and adenoidectomy Family History Other Family history non-contributory Social History Smoking Status: Former smoker Second Hand Exposure: No; Hx Alcohol Use: No Hx Substance Use: No Preferred Language: Yakut Communication Ability: Effective Grain Loader Required: No Beliefs That Will Affect Care: None marital status: / Current Living Situation: Other Current Living Situation Comment: Pt lives with girlfriend Zaira Toledo How many Children do You have: 4 Other Information That Helps Us Care for You: No Feels Safe at Home: Yes Safety Concerns: Feels Safe At This Time Assistive Devices: Walker Review of Systems Review of Systems: All systems reviewed & are unremarkable except as noted in HPI & below Physical Exam Constitutional: WD/WN, vitals as above + ill appearing, cooperative and comfortable; not in distress Neck: trachea midline Respiratory: normal respiratory effort; no labored breathing Auscultation: + diminished lung sounds Cardiovascular: Rate/Rhythm: + irregularly irregular Vessels: posterior tibial pulses present (nonpalpable BLE) and dorsalis pedis pulses present (RLE +1, LLE nonpalpable); + abnormal peripheral pulses Extremities: + edema; + abnormal capillary refill Gastrointestinal (Abdomen): Inspection/Auscultation: abdomen normal to inspection and normal bowel sounds Percussion/Palpation: abdomen soft; abdomen nontender Skin: LLE heel tender, with mild erythema/ecchymotic area, consistent wtih early pressure-type wound. No sign of infection at this time Neurologic: moves all extremities and awake; no focal motor deficits and not confused Psychiatric: A+Ox3, euthymic affect Results & Data ([facility]) Vital Signs (Past 12 Hours) Vital Signs Temp Pulse Pulse Resp BP Pulse Ox 05/17/21 08:00 36.5 C 69 18 100/65 96 05/17/21 07:14 80 05/17/21 03:05 36.7 C 61 16 94/50 L 95
--- NOTE | 2021-05-17 13:37 | Hospitalist Progress Note ---
Date of Service May 17, 2021 Assessment & Plan (1) Acute on chronic HFrEF (heart failure with reduced ejection fraction): Plan: recent heart failure syndrome described. Has underlying presumed ischemic cardiomyopathy with an EF 25% and is wearing a life vest which was given to him on hospital discharge 03/20/21. He is responding well to intravenous diuresis with furosemide-continues on this now. Cont potassium replacement as needed. Cont management per cardiology. Continues on Toprol XL and aspirin. RYLEE/ARB contraindicated in renal disease. Not on statin therapy currently as atorvastatin 40mg (given to him at recent hospital discharge) was placed on hold by outpatient cardiology provider prior to arrival in setting of elevated LFTs. Cont current management. Will add atorvastatin to outpatient medication regimen now and continue holding pending LFT normalization. (2) Acute kidney injury superimposed on chronic kidney disease: Plan: Recent increased diuretic use as outpatient prior to hospitalization. Possible etiology also cardiorenal syndrome per nephro. Baseline creat 2.5. Creatinine improved with diuretic therapy. Cont current management. (3) Ischemic cardiomyopathy: Plan: presumed, cont current medical management. (4) Ventricular tachycardia: Plan: maintains life vest and NSR on telemetry overnight. (5) Atrial fibrillation: Plan: Continue amiodarone, Toprol-XL. Warfarin restarted now that INR 3.2. (6) Pain of left heel: Plan: Dr. Crawford performed a thrombectomy of his left lower extremity in Mar 2021 post NSTEMI and bilateral thoracentesis. He is subsequently developed purplish rash on his left heel that is painful and appears embolic in nature. There is also a small wound in the same area. Cardiology is touching base with vascular surgery in a.m. for further recommendations. Continue anticoagulation. (7) Aortic stenosis: (8) Elevated transaminase level: Plan: Improving. Likely secondary to congestive hepatopathy, right upper quadrant ultrasound is within normal limits. Would restart atorvastatin at discharge. (9) Anemia in CKD (chronic kidney disease): Plan: Continues on Procrit as outpatient. (10) DVT prophylaxis: Plan: Therapeutic INR, restart warfarin Full code Disposition-continue PCU pending cardiology clearance [facility] Admission and Anticipated Discharge Date Admission Date: May 14, 2021 Subjective denies SOB or chest pain has insomnia given ativan last few nights with persistent daytime somnolence denies anxiety foot improved after treatment by wound nurse today. Review of Systems Review of Systems: CONSTITUTIONAL: Patient denies fevers, chills, sweats and weight changes. EYES: Patient denies any visual symptoms. EARS, NOSE, AND THROAT: No difficulties with hearing. No symptoms of rhinitis or sore throat. CARDIOVASCULAR: Patient denies chest pains, palpitations, orthopnea and paroxysmal nocturnal dyspnea. RESPIRATORY: No dyspnea on exertion, no wheezing or cough. GI: No nausea, vomiting, diarrhea, constipation, abdominal pain, hematochezia or melena. : No urinary hesitancy or dribbling. No nocturia or urinary frequency. No abnormal urethral discharge. MUSCULOSKELETAL: No myalgias or arthralgias. NEUROLOGIC: No chronic headaches, no seizures. Patient denies numbness, tingling or weakness. Physical Exam Physical Exam: CONSTITUTIONAL: WNWD, vitals as above, generally well- appearing, NAD EYES: normal conjunctivae, no scleral icterus ENT: external ear and nose normal, oropharynx clear NECK: trachea midline RESPIRATORY: crackles at right base, otherwise, no rales or wheezes, normal respiratory effort CARDIOVASCULAR: regular rate and rhythm, S1 and 2 heard without murmurs, gallops or rubs, no JVD, no peripheral edema CHEST: inspection of chest was normal GASTROINTESTINAL: soft, nontender, ND, no guarding MUSCULOSKELETAL: moves all extremities equally, however, generally weak. Cannot sit up in bed independently. Head is normocephalic and atraumatic, neck supple, normal palpation of chest wall without tenderness SKIN: warm and dry, purplish embolic appearing phenomena on left heal with min wound overlying this area. NEUROLOGIC: CN 2-12 grossly intact, no sensory deficit, normal cognition, normal speech, no tremor, no gross focal deficit, however, gait was not assessed. PSYCHIATRIC: alert cooperative and oriented to person, place and time. Results & Data Results & Data ([facility]) Vital Signs (Past 12 Hours) Vital Signs Temp Pulse Pulse Resp BP Pulse Ox 05/17/21 11:00 36.8 C 72 20 90/58 L 95 05/17/21 08:00 36.5 C 69 18 100/65 96 05/17/21 07:14 80 05/17/21 03:05 36.7 C 61 16 94/50 L 95 Laboratory Results Short CBC 05/17/21 Range/Units 10:00 WBC 12.20 H (4.8-10.8) K/uL Hgb 8.9 L (14.0-18.0) g/dL Hct 27.9 L (42-52) % Plt Count 281 (130-400) K/uL BMP 05/17/21 10:00 Sodium 139 Potassium 3.9 D Chloride 103 Carbon Dioxide 26 BUN 61 H Creatinine 2.93 H Glucose 127 H Calcium 8.4 L Medications Administered Current Inpatient Medications Acetaminophen (Acetaminophen 325 Mg Tab) 650 mg PO Q4H PRN PRN Reason: Pain or Fever Stop: 06/13/21 23:10 Last Admin: 05/17/21 01:04 Dose: 650 mg Documented by: Amiodarone HCl (Amiodarone 200 Mg Tab) 200 mg PO DAILY ABAD Stop: 06/14/21 08:59 Last Admin: 05/17/21 08:04 Dose: 200 mg Documented by: Aspirin (Aspirin 81 Mg Ectab) 81 mg PO QAM [facility] Stop: 06/14/21 08:59 Last Admin: 05/17/21 08:04 Dose: 81 mg Documented by: Azelastine HCl (Azelastine Hcl 0.1% Nasal 200 Sprays/27,400 Mcg Btl) 2 sprays NA BID [facility] Stop: 06/13/21 23:44 Last Admin: 05/17/21 08:05 Dose: 2 sprays Documented by: Cyanocobalamin (Cyanocobalamin 500 Mcg Tablet (Vitamin B-12)) 1,000 mcg PO DAILY ABAD Stop: 06/14/21 08:59 Last Admin: 05/17/21 08:05 Dose: 1,000 mcg Documented by: Fluticasone Propionate (Fluticasone Propionate Na Spr 16 Gm Btl) 1 sprays NA DAILY ABAD Stop: 06/14/21 08:59 Last Admin: 05/17/21 08:05 Dose: Not Given Documented by: Furosemide (Furosemide 40 Mg/4 Ml Vial) 40 mg IV TID ABAD Stop: 06/14/21 13:59 Last Admin: 05/17/21 08:05 Dose: 40 mg Documented by: Levothyroxine Sodium (Levothyroxine Sodium 75 Mcg Tablet) 75 mcg PO DAILYBB [facility] Stop: 06/14/21 06:29 Last Admin: 05/17/21 05:20 Dose: 75 mcg Documented by: Lorazepam (Lorazepam 0.5 Mg Tab) 0.5 mg PO HS PRN PRN Reason: Insomnia Stop: 06/16/21 03:00 Melatonin (Melatonin 3 Mg Tab) 3 mg PO HS PRN PRN Reason: Sleep Stop: 06/14/21 00:39 Last Admin: 05/16/21 20:46 Dose: 3 mg Documented by: Metoprolol Succinate (Metoprolol Succ 25mg Ext Rel Tab) 25 mg PO PM ABAD Stop: 06/14/21 20:59 Last Admin: 05/16/21 20:42 Dose: 25 mg Documented by: Nitroglycerin (Nitroglycerin Sl 0.4 Mg/Tab Tab) 0.4 mg SL UD PRN PRN Reason: Chest Pain Stop: 06/13/21 23:10 Polyethylene Glycol (Polyethylene (Miralax) 17 Gm Pack) 17 gm PO DAILY PRN PRN Reason: Constipation Stop: 06/15/21 20:48 Pyridoxine HCl (Pyridoxine Hcl 50 Mg Tab) 100 mg PO BID ABAD Stop: 06/13/21 23:44 Last Admin: 05/17/21 08:06 Dose: 100 mg Documented by: Senna/Docusate Sodium (Docusate Sodium/Senna 50/8.6mg Tab) 1 tab PO HS ABAD Stop: 06/16/21 20:59 Triamcinolone Acetonide (Triamcinolone Acet 0.1% Oint 15 Gm Tube) 1 appln TOP HS PRN PRN Reason: Rash Stop: 06/13/21 23:10 Vitamin D (Cholecalciferol 1,000 Units 25 Mcg Tab) 1,000 units PO DAILY ABAD Stop: 06/14/21 08:59 Last Admin: 05/17/21 08:05 Dose: 1,000 units Documented by: Warfarin Sodium (Warfarin Sod 2 Mg Tab) 2 mg PO DAILY@1600 [facility] Stop: 06/16/21 15:59
--- NOTE | 2021-05-17 14:50 | Ultrasound Report ---
BILATERAL LOWER EXTREMITY ARTERIAL DOPPLER ULTRASOUND CLINICAL HISTORY: left heel pain and cellulitis COMPARISON STUDY: No previous studies for comparison. TECHNIQUE: Grayscale, color and duplex Doppler sonography of the arterial systems of both lower extre mities was performed. Ankle-brachial indices could not be obtained in this patient. FINDINGS: Note is made of a 2.7 x 1.2 x 2 cm oval-shaped hypoechoic focus within the right groin. Thi s appears to contain color flow. There is also a 5.9 x 3.1 x 2.9 cm bilobed hypoechoic focus within t he left groin. This has linear internal echoes. No definite color flow is identified within this lesi on. Moderate atherosclerotic plaque is identified within the lower extremities. There is biphasic flow wi thin the right common femoral and superficial femoral arteries. No elevated velocities are identified within these vessels. There is monophasic flow within the right popliteal and posterior tibial arter ies. There is biphasic flow within the right anterior tibial, peroneal and dorsalis pedis vessels. There is monophasic flow within the left common femoral artery which raises the possibility of inflow disease. There is monophasic flow within the proximal to mid left superficial femoral artery. No denia w is identified within the distal left superficial femoral artery which suggests occlusion. There is dampened monophasic flow within the left popliteal, anterior tibial, posterior tibial, peroneal and d orsalis pedis vessels likely through collaterals. IMPRESSION: 1. Suspected occlusion of the distal left superficial femoral artery. Monophasic dampened flow within the left popliteal artery and calf vessels likely through collaterals. 2. Moderate atherosclerotic plaque within the bilateral lower extremities. 3. No vessel occlusion identified within the right lower extremity. 4. Monophasic flow within the left common femoral artery which raises the possibility of inflow disea se. 5. 5.9 x 3.1 x 2.9 cm bilobed hypoechoic focus within the left groin which contains linear internal e choes without definite color flow. 2.7 x 1.2 x 2 cm hypoechoic right groin focus with suspected color flow. These could represent enlarged lymph nodes or fluid collections. A nonemergent CT of the pelvi s with contrast is recommended for further evaluation. ACT 112: Negative or not required by law. Electronically signed by: Randy Thomas M.D. 05/17/2021 2:49 PM
--- NOTE | 2021-05-17 15:50 | Communication Note ---
Date of Service: May 17, 2021 Creat 2.8 yesterday, 2.9 today, SBP in the 90s. Hold furosemide. Arterial duplex findings noted. CT of pelvis w/ contrast recommended by radiology for evaluation of groin abnormality , has history of T cell Lymphoma. Unable to perform study due to renal insufficiency. INR 2.6. Resume coumadin for now.
[2021-05-17] MEDS: WARFARIN SOD 2 MG TAB PO SCH (17:16)
[2021-05-17 18:09] LABS: SARS CoV2 RNA(COVID-19) InHosp NEGATIVE (Negative)
[2021-05-17] MEDS: METOPROLOL SUCC 25MG EXT REL TAB PO SCH (21:02)
[2021-05-17] MEDS: LORazepam 0.5 MG TAB PO PRN (21:04)
[2021-05-17] MEDS: DOCUSATE SODIUM/SENNA 50/8.6MG TAB PO SCH (21:06)
[2021-05-18] MEDS: LEVOTHYROXINE SODIUM 75 MCG TABLET PO SCH (06:06)
[2021-05-18 07:46] LABS: Hematocrit (blood only) 28.9 % (42-52); Hemoglobin 9.2 g/dL (14.0-18.0); Mean Corpuscular Hemoglobin 37.7 pg (25-34); Mean Corpuscular Hgb Conc 31.8 g/dL (32-36); Mean Corpuscular Volume 118.4 fL (80-100); Platelet Count 313 K/uL (130-400); RDW Coefficient of Variation 23.3 % (11.5-14.5); RDW Standard Deviation 97.7 fL (36.4-46.3); Red Blood Count 2.44 M/uL (4.7-6.1); White Blood Count 10.19 K/uL (4.8-10.8)
[2021-05-18 07:54] LABS: INR 2.3 (0.9-1.1)
[2021-05-18 08:24] LABS: Creatinine Clr Calc Pharmacy 22.3 ml/min; Est GFR (African American) 24.4 ml/min; Magnesium 2.4 mg/dl (1.8-2.4); Potassium 3.5 mmol/L (3.5-5.1)
[2021-05-18] MEDS: CYANOCOBALAMIN 500 MCG TABLET (VITAMIN B-12) PO SCH (08:33)
[2021-05-18] MEDS: CHOLECALCIFEROL 1,000 UNITS 25 MCG TAB PO SCH (08:33)
[2021-05-18] MEDS: ASPIRIN 81 MG ECTAB PO SCH (08:33)
[2021-05-18] MEDS: PYRIDOXINE HCL 50 MG TAB PO SCH ×2 (08:34→20:01)
[2021-05-18] MEDS: AMIODARONE 200 MG TAB PO SCH (08:34)
[2021-05-18] MEDS: FLUTICASONE PROPIONATE NA SPR 16 GM BTL SCH (08:34)
[2021-05-18] MEDS: AZELASTINE HCL 0.1% NASAL 200 SPRAYS/27,400 MCG BTL SCH ×2 (08:34→20:00)
--- NOTE | 2021-05-18 09:56 | Nephrology Progress Note ---
Date of Service May 18, 2021 Assessment & Plan (1) Acute kidney injury superimposed on chronic kidney disease: Plan: stable/slightly improved acute kidney injury on CKD likely due to cardiorenal syndrome. Baseline creatinine of 2.5. Admission creatinine of 3.8 and downtrending to 2.7 today. He does have volume overload. -Lasix to 40 mg IV 3 times daily on hold after AM dose 12/ - likely will need to resume since vascular procedure appears to be deferred for now but will d/w rounding teams > resume lasix 20 mg IV qid -standing K dose held and K 3.5 today >> will give 40 mEq po x 1 (and note cardiology gave some later today as well) and resume 20 mEq po bid tomorrow am -Monitor input output -Daily BMP Care coordinated w/ Dario Houser (2) Acute decompensated heart failure: Plan: Patient with a low EF of 25% and pulmonary hypertension. Longer term cardiology hopes to do NST, consideration of defibrillator but needs L heel management /eval and possibly now L groin eval. -diuretics asabove (3) Pain of left heel: Plan: vascular following; pt s/p LLE thrombectomy 03/2021 during admission for NSTEMI and w/ BL thoracentesis vascular will likely be able to treat more definitively as indicated/if needed if IV contrast can be used -if IV contrast needed, ok from renal standpoint to do this given competing clinical needs here; to lower risk of contrast induced nephropathy recommend ->stop lasix 12-24 hr prior to IV contrast Admission and Anticipated Discharge Date Admission Date: May 14, 2021 Subjective no interval clinical events. waiting on vascular dispo. pt feels L heel pain better than yesterday. stable exertional dyspnea; no orthopnea; needs asst to move between chair and bed Review of Systems Review of Systems: All systems reviewed & are unremarkable except as noted in Subjective Physical Exam Constitutional: well developed and well nourished; no acute distress Eyes: EOM intact bilaterally ENMT: Ears: no external ear abnormality Nose: no external nose abnormality Mouth: + dry oral mucous membranes Neck: no nuchal rigidity Respiratory: normal respiratory effort Auscultation: lungs clear to auscultation bilaterally and + diminished lung sounds Cardiovascular: Rate/Rhythm: regular rate and regular rhythm Extremities: + edema (at most trace BL ankle edema) life vest in place Gastrointestinal (Abdomen): Inspection/Auscultation: normal bowel sounds Percussion/Palpation: abdomen soft; abdomen nontender Musculoskeletal: Extremities: strength 5/5 throughout Skin: no rashes, warm and dry L posterior heel red, sore, dry Psychiatric: Orientation: oriented x 3 Results & Data ([facility]) Vital Signs (Past 12 Hours) Vital Signs Temp Pulse Resp BP Pulse Ox 05/18/21 07:10 36.6 C 70 20 108/67 96 05/18/21 03:27 36.6 C 69 20 117/74 92 05/17/21 23:08 36.8 C 68 22 110/71 97 Laboratory Results 05/18/21 07:17 05/18/21 07:17 Diagnostic Findings arterial duplex 05/17 1. Suspected occlusion of the distal left superficial femoral artery. Monophasic dampened flow within the left popliteal artery and calf vessels likely through collaterals. 2. Moderate atherosclerotic plaque within the bilateral lower extremities. 3. No vessel occlusion identified within the right lower extremity. 4. Monophasic flow within the left common femoral artery which raises the possibility of inflow disease. 5. 5.9 x 3.1 x 2.9 cm bilobed hypoechoic focus within the left groin which contains linear internal echoes without definite color flow. 2.7 x 1.2 x 2 cm hypoechoic right groin focus with suspected color flow. These could represent enlarged lymph nodes or fluid collections. A nonemergent CT of the pelvis with contrast is recommended for further evaluation.
[2021-05-18] MEDS ORDERED: POTASSIUM CHLORIDE CRTAB 20 MEQ TABCR PO ONE (10:00)
[2021-05-18] MEDS ORDERED: FUROSEMIDE INJ 20 MG/2 ML VIAL IV ONE (14:52)
--- NOTE | 2021-05-18 14:52 | Cardiology Progress Note ---
Date of Service May 18, 2021 Assessment & Plan (1) Acute on chronic HFrEF (heart failure with reduced ejection fraction): (2) Ischemic cardiomyopathy: Plan: Creatinine stable, resume furosemide, 20 mg IV every 6 hours. Supplement potassium. (3) Pain of left heel: Plan: Local wound care for pressure ulcer initiated. Lower extremity arterial duplex does reveal evidence of PAD. Will review case with vascular. INR 2.3, continue Coumadin for now. Admission and Anticipated Discharge Date Admission Date: May 14, 2021 Subjective Patient seen in cardiology follow-up. He describes vague feeling of illness. Shortness of breath is stable. He states that the help provided by the wound care nurse has improved his left heel pain. Physical Exam Physical Exam: Temp Pulse Resp BP Pulse Ox 36.5 C 74 20 113/72 96 05/18/21 11:30 05/18/21 11:30 05/18/21 11:30 05/18/21 11:30 05/18/21 11:30 Constitutional: + ill appearing; no acute distress Respiratory: Auscultation: + diminished lung sounds (decreased BS at the bases ); no crackles and no wheezes Cardiovascular: Rate/Rhythm: regular rate Heart Sounds: + murmur (1/6 systolic murmur) Extremities: + edema (Edema resolved) Gastrointestinal (Abdomen): normal bowel sounds, soft, nontender, no hepatosplenomegaly Neurologic: PERRL, EOMI, accommodation nl, no face palsy, no dysarthria Results & Data ([facility]) Vital Signs (Past 12 Hours) Vital Signs Temp Pulse Resp BP Pulse Ox 05/18/21 11:30 36.5 C 74 20 113/72 96 05/18/21 07:10 36.6 C 70 20 108/67 96 05/18/21 03:27 36.6 C 69 20 117/74 92 Laboratory Results Temp Pulse Resp BP Pulse Ox 36.5 C 74 20 113/72 96 05/18/21 11:30 05/18/21 11:30 05/18/21 11:30 05/18/21 11:30 05/18/21 11:30
[2021-05-18] MEDS ORDERED: POTASSIUM CHLORIDE CRTAB 20 MEQ TABCR PO STA (14:54)
[2021-05-18] MEDS: WARFARIN SOD 2 MG TAB PO SCH (15:30)
[2021-05-18] MEDS: FUROSEMIDE INJ 20 MG/2 ML VIAL IV SCH ×2 (17:57→23:56)
--- NOTE | 2021-05-18 18:11 | Hospitalist Progress Note ---
Date of Service May 18, 2021 Assessment & Plan (1) Acute on chronic HFrEF (heart failure with reduced ejection fraction): Plan: recent heart failure syndrome described. Has underlying presumed ischemic cardiomyopathy with an EF 25% and is wearing a life vest which was given to him on hospital discharge 03/20/21. He is responding well to intravenous diuresis with furosemide-continues on this now. Cont potassium replacement as needed. Cont management per cardiology. Continues on Toprol XL and aspirin. RYLEE/ARB contraindicated in renal disease. Not on statin therapy currently as atorvastatin 40mg (given to him at recent hospital discharge) was placed on hold by outpatient cardiology provider prior to arrival in setting of elevated LFTs. Cont current management. Will add atorvastatin to outpatient medication regimen now and continue holding pending LFT normalization. (2) Acute kidney injury superimposed on chronic kidney disease: Plan: Recent increased diuretic use as outpatient prior to hospitalization. Possible etiology also cardiorenal syndrome per nephro. Baseline creat 2.5. Creatinine improved with diuretic therapy. Cont current management. (3) Ischemic cardiomyopathy: Plan: presumed, cont current medical management. (4) Ventricular tachycardia: Plan: maintains life vest and NSR on telemetry overnight. (5) Atrial fibrillation: Plan: Continue amiodarone, Toprol-XL. Warfarin restarted now that INR 3.2. (6) Pain of left heel: Plan: Dr. Crawford performed a thrombectomy of his left lower extremity in Mar 2021 post NSTEMI and bilateral thoracentesis. He is subsequently developed purplish rash on his left heel that is painful and appears embolic in nature. There is also a small wound in the same area. Feels better after dressing it today. (7) Aortic stenosis: (8) Elevated transaminase level: Plan: Improving. Likely secondary to congestive hepatopathy, right upper quadrant ultrasound is within normal limits. Would restart atorvastatin at discharge. (9) Anemia in CKD (chronic kidney disease): Plan: Continues on Procrit as outpatient. (10) DVT prophylaxis: Plan: Therapeutic INR, restart warfarin Full code Disposition-continue PCU pending cardiology clearance Sowmya Bishop DO [facility] Hospitalist Admission and Anticipated Discharge Date Admission Date: May 14, 2021 Subjective denies SOB or chest pain has insomnia given ativan last few nights with persistent daytime somnolence denies anxiety foot improved after treatment by wound nurse today. Review of Systems Review of Systems: All systems were reviewed and negative except as indicated in subjective above. Physical Exam Physical Exam: CONSTITUTIONAL: WNWD, vitals as above, generally well- appearing, NAD EYES: normal conjunctivae, no scleral icterus ENT: external ear and nose normal, oropharynx clear NECK: trachea midline RESPIRATORY: clear to auscultation throughout, no rales or wheezes, normal respiratory effort CARDIOVASCULAR: regular rate and rhythm, S1 and 2 heard without murmurs, gallops or rubs, no JVD, no peripheral edema CHEST: inspection of chest was normal GASTROINTESTINAL: soft, nontender, ND, no guarding MUSCULOSKELETAL: moves all extremities equally, however, generally weak. Cannot sit up in bed independently. Head is normocephalic and atraumatic, neck supple, normal palpation of chest wall without tenderness SKIN: warm and dry, purplish embolic appearing phenomena on left heal with min wound overlying this area. NEUROLOGIC: CN 2-12 grossly intact, no sensory deficit, normal cognition, normal speech, no tremor, no gross focal deficit, however, gait was not assessed. PSYCHIATRIC: alert cooperative and oriented to person, place and time. Results & Data Results & Data ([facility]) Vital Signs (Past 12 Hours) Vital Signs Temp Pulse Pulse Resp BP Pulse Ox 05/18/21 16:08 77 05/18/21 15:06 36.5 C 75 18 114/78 95 05/18/21 11:30 36.5 C 74 20 113/72 96 05/18/21 07:10 36.6 C 70 20 108/67 96 Laboratory Results Short CBC 05/18/21 Range/Units 07:17 WBC 10.19 (4.8-10.8) K/uL Hgb 9.2 L (14.0-18.0) g/dL Hct 28.9 L (42-52) % Plt Count 313 (130-400) K/uL BMP 05/18/21 07:17 Sodium 139 Potassium 3.5 Chloride 102 Carbon Dioxide 28 BUN 60 H Creatinine 2.73 H Glucose 102 H Calcium 8.0 L Medications Administered Current Inpatient Medications Acetaminophen (Acetaminophen 325 Mg Tab) 650 mg PO Q4H PRN PRN Reason: Pain or Fever Stop: 06/13/21 23:10 Last Admin: 05/17/21 01:04 Dose: 650 mg Documented by: Amiodarone HCl (Amiodarone 200 Mg Tab) 200 mg PO DAILY ABAD Stop: 06/14/21 08:59 Last Admin: 05/18/21 08:34 Dose: 200 mg Documented by: Aspirin (Aspirin 81 Mg Ectab) 81 mg PO QAM ABAD Stop: 06/14/21 08:59 Last Admin: 05/18/21 08:33 Dose: 81 mg Documented by: Azelastine HCl (Azelastine Hcl 0.1% Nasal 200 Sprays/27,400 Mcg Btl) 2 sprays NA BID ABAD Stop: 06/13/21 23:44 Last Admin: 05/18/21 08:34 Dose: 2 sprays Documented by: Cyanocobalamin (Cyanocobalamin 500 Mcg Tablet (Vitamin B-12)) 1,000 mcg PO DAILY ABAD Stop: 06/14/21 08:59 Last Admin: 05/18/21 08:33 Dose: 1,000 mcg Documented by: Fluticasone Propionate (Fluticasone Propionate Na Spr 16 Gm Btl) 1 sprays NA DAILY ABAD Stop: 06/14/21 08:59 Last Admin: 05/18/21 08:34 Dose: Not Given Documented by: Furosemide (Furosemide Inj 20 Mg/2 Ml Vial) 20 mg IV Q6H ABAD Stop: 06/17/21 17:59 Last Admin: 05/18/21 17:57 Dose: 20 mg Documented by: Levothyroxine Sodium (Levothyroxine Sodium 75 Mcg Tablet) 75 mcg PO DAILYBB ABAD Stop: 06/14/21 06:29 Last Admin: 05/18/21 06:06 Dose: 75 mcg Documented by: Lorazepam (Lorazepam 0.5 Mg Tab) 0.5 mg PO HS PRN PRN Reason: Insomnia Stop: 06/16/21 03:00 Last Admin: 05/17/21 21:04 Dose: 0.5 mg Documented by: Melatonin (Melatonin 3 Mg Tab) 3 mg PO HS PRN PRN Reason: Sleep Stop: 06/14/21 00:39 Last Admin: 05/16/21 20:46 Dose: 3 mg Documented by: Metoprolol Succinate (Metoprolol Succ 25mg Ext Rel Tab) 25 mg PO PM ABAD Stop: 06/14/21 20:59 Last Admin: 05/17/21 21:02 Dose: Not Given Documented by: Nitroglycerin (Nitroglycerin Sl 0.4 Mg/Tab Tab) 0.4 mg SL UD PRN PRN Reason: Chest Pain Stop: 06/13/21 23:10 Polyethylene Glycol (Polyethylene (Miralax) 17 Gm Pack) 17 gm PO DAILY PRN PRN Reason: Constipation Stop: 06/15/21 20:48 Potassium Chloride (Potassium Chloride Crtab 20 Meq Tabcr) 20 meq PO BID ABAD Stop: 06/18/21 08:59 Pyridoxine HCl (Pyridoxine Hcl 50 Mg Tab) 100 mg PO BID ABAD Stop: 06/13/21 23:44 Last Admin: 05/18/21 08:34 Dose: 100 mg Documented by: Senna/Docusate Sodium (Docusate Sodium/Senna 50/8.6mg Tab) 1 tab PO HS ABAD Stop: 06/16/21 20:59 Last Admin: 05/17/21 21:06 Dose: Not Given Documented by: Triamcinolone Acetonide (Triamcinolone Acet 0.1% Oint 15 Gm Tube) 1 appln TOP HS PRN PRN Reason: Rash Stop: 06/13/21 23:10 Vitamin D (Cholecalciferol 1,000 Units 25 Mcg Tab) 1,000 units PO DAILY ABAD Stop: 06/14/21 08:59 Last Admin: 05/18/21 08:33 Dose: 1,000 units Documented by: Warfarin Sodium (Warfarin Sod 2 Mg Tab) 2 mg PO DAILY@1600 ABAD Stop: 06/16/21 15:59 Last Admin: 05/18/21 15:30 Dose: 2 mg Documented by:
[2021-05-18] MEDS: DOCUSATE SODIUM/SENNA 50/8.6MG TAB PO SCH (20:00)
[2021-05-18] MEDS: METOPROLOL SUCC 25MG EXT REL TAB PO SCH (20:01)
[2021-05-19] MEDS: LEVOTHYROXINE SODIUM 75 MCG TABLET PO SCH (05:02)
[2021-05-19] MEDS: FUROSEMIDE INJ 20 MG/2 ML VIAL IV SCH ×4 (05:02→23:14)
[2021-05-19 05:58] LABS: Hematocrit (blood only) 28.7 % (42-52); Hemoglobin 9.3 g/dL (14.0-18.0); Mean Corpuscular Hemoglobin 38.4 pg (25-34); Mean Corpuscular Hgb Conc 32.4 g/dL (32-36); Mean Corpuscular Volume 118.6 fL (80-100); Platelet Count 294 K/uL (130-400); RDW Coefficient of Variation 23.3 % (11.5-14.5); RDW Standard Deviation 98.9 fL (36.4-46.3); Red Blood Count 2.42 M/uL (4.7-6.1); White Blood Count 9.65 K/uL (4.8-10.8)
[2021-05-19 06:08] LABS: INR 2.3 (0.9-1.1)
[2021-05-19 06:55] LABS: BUN Creatinine Ratio 21.8 (10-20); Calcium 8.9 mg/dl (8.5-10.1); Creatinine Clr Calc Pharmacy 22.8 ml/min; Est GFR (African American) 25.1 ml/min; Est GFR (Non-African American) 21.7 ml/min; Potassium 5.1 mmol/L (3.5-5.1)
[2021-05-19] MEDS: CYANOCOBALAMIN 500 MCG TABLET (VITAMIN B-12) PO SCH (08:56)
[2021-05-19] MEDS: PYRIDOXINE HCL 50 MG TAB PO SCH ×2 (08:56→20:12)
[2021-05-19] MEDS: FLUTICASONE PROPIONATE NA SPR 16 GM BTL SCH (08:57)
[2021-05-19] MEDS: CHOLECALCIFEROL 1,000 UNITS 25 MCG TAB PO SCH (08:57)
[2021-05-19] MEDS: ASPIRIN 81 MG ECTAB PO SCH (08:57)
[2021-05-19] MEDS: AMIODARONE 200 MG TAB PO SCH (08:57)
[2021-05-19] MEDS: AZELASTINE HCL 0.1% NASAL 200 SPRAYS/27,400 MCG BTL SCH ×2 (08:57→20:13)
--- NOTE | 2021-05-19 11:39 | Cardiology Progress Note ---
Date of Service May 19, 2021 Assessment & Plan (1) Acute on chronic HFrEF (heart failure with reduced ejection fraction): (2) Ischemic cardiomyopathy: Plan: Creatinine stable, resume furosemide, 20 mg IV every 6 hours. Potassium supplementation on hold for level of 5.1. (3) Pain of left heel: Plan: Local wound care for pressure ulcer initiated. Lower extremity arterial duplex does reveal evidence of PAD. Case reviewed with vascular, noncritical disease suspected, ongoing observation recommended. INR 2.3, continue Coumadin for now. Plan for 2-day Lexiscan myocardial perfusion imaging study, rest images 05/19/2021, stress images 05/20/2021. Admission and Anticipated Discharge Date Admission Date: May 14, 2021 Subjective Patient seen in cardiology follow-up of his chief complaint of exertional shortness of breath. Telemetry reveals sinus rhythm in the range of 67 bpm with left bundle branch block, first-degree AV block. Review of Systems Review of Systems: All systems reviewed & are unremarkable except as noted in HPI & below Physical Exam Physical Exam: Temp Pulse Resp BP Pulse Ox 36.9 C 76 18 122/59 L 95 05/19/21 08:00 05/19/21 08:00 05/19/21 08:00 05/19/21 08:00 05/19/21 08:00 Constitutional: + ill appearing; no acute distress Respiratory: Auscultation: + diminished lung sounds (decreased BS at the bases ); no crackles and no wheezes Cardiovascular: Rate/Rhythm: regular rate Heart Sounds: + murmur (1/6 systolic murmur) Extremities: + edema (Edema resolved) Gastrointestinal (Abdomen): normal bowel sounds, soft, nontender, no hepatosplenomegaly Neurologic: PERRL, EOMI, accommodation nl, no face palsy, no dysarthria Results & Data ([facility]) Vital Signs (Past 12 Hours) Vital Signs Temp Pulse Pulse Resp BP Pulse Ox 05/19/21 08:00 36.9 C 76 18 122/59 L 95 05/19/21 07:51 73 05/19/21 03:31 36.7 C 72 18 114/66 91 05/19/21 01:47 72 05/18/21 23:36 36.7 C 68 18 115/59 L 95 Laboratory Results Coagulation 05/19/2021, INR 2.3 05/19/21 Range/Units 05:36 PT 22.0 H (9.0-12.0) Seconds CBC 05/19/21 Range/Units 05:36 WBC 9.65 (4.8-10.8) K/uL RBC 2.42 L (4.7-6.1) M/uL Hgb 9.3 L (14.0-18.0) g/dL Hct 28.7 L (42-52) % Plt Count 294 (130-400) K/uL Comprehensive Metabolic Panel 05/19/21 Range/Units 05:36 Sodium 137 (136-145) mmol/L Potassium 5.1 D (3.5-5.1) mmol/L Chloride 104 (98-107) mmol/L Carbon Dioxide 27 (21-32) mmol/L BUN 58 H (7-18) mg/dl Creatinine 2.66 H (0.6-1.4) mg/dl Glucose 118 H (70-99) mg/dl Calcium 8.9 (8.5-10.1) mg/dl Intake and Output 05/18/21 05/19/21 05/19/21 22:59 06:59 14:59 Intake Total 600 / 1200 Output Total 1351 / 1801 Balance -751 / -601 - Intake: Oral 600 / 1200 Output: Urine Amount (Catheter) 1350 / 1800 Anthony/Indwelling 1350 / 1800 # Bowel Movements Other: Weight 81.2 kg Weight Measurement Method Standing Scale
--- NOTE | 2021-05-19 14:36 | Nephrology Progress Note ---
Date of Service May 19, 2021 Assessment & Plan (1) Acute kidney injury superimposed on chronic kidney disease: Plan: stable/slightly improved acute kidney injury on CKD likely due to cardiorenal syndrome. Baseline creatinine of 2.5. Admission creatinine of 3.8 and plateau'd at 2.7 today. He does have a bit more symptomatic volume overload today > has been "only" 1.2L negative past 72 hrs. -cont lasix 20 mg IV qid but if more sx of sob, return to 40 mg tid IV -standing [place] hold but likely to need to resume tomorrow -Monitor input output -Daily BMP -daily standing weight (2) Acute decompensated heart failure: Plan: Patient with a low EF of 25% and pulmonary hypertension. Longer term cardiology hopes to do NST, consideration of defibrillator. -diuretics asabove -for nuke stress test next 48 hr (3) Pain of left heel: Plan: vascular following; for conservative mgt currently; pt s/p LLE thrombectomy 03/2021 during admission for NSTEMI and w/ BL thoracentesis Admission and Anticipated Discharge Date Admission Date: May 14, 2021 Subjective no interval events. does feel his breathing a bit more short. vascular plans to follow patient/no intervention at this time for noncritical PAD. nuke stress test planned next days Review of Systems Review of Systems: All systems reviewed & are unremarkable except as noted in Subjective Physical Exam Constitutional: well developed and well nourished; no acute distress Eyes: EOM intact bilaterally ENMT: Ears: no external ear abnormality Nose: no external nose abnormality Mouth: + dry oral mucous membranes Neck: no nuchal rigidity Respiratory: + respiratory distress (very slight), able to speak in complete sentences (w/ intermittent pauses to breathe) and + paradoxical thoraco-abdom inal movement Auscultation: + diminished lung sounds and + crackles (biba silar) Cardiovascular: Rate/Rhythm: regular rate and regular rhythm Extremities: + edema (at most trace BL ankle edema) Gastrointestinal (Abdomen): Inspection/Auscultation: normal bowel sounds Percussion/Palpation: abdomen soft; abdomen nontender Musculoskeletal: Extremities: strength 5/5 throughout Skin: no rashes, warm and dry L heel not examined Psychiatric: Orientation: oriented x 3 Genitourinary: del rosario w/ ample yellow urine Results & Data ([place]) Vital Signs (Past 12 Hours) Vital Signs Temp Pulse Pulse Resp BP Pulse Ox 05/19/21 11:40 36.4 C L 72 18 111/70 90 05/19/21 08:00 36.9 C 76 18 122/59 L 95 05/19/21 07:51 73 05/19/21 03:31 36.7 C 72 18 114/66 91 Laboratory Results 05/19/21 05:36 05/19/21 05:36
--- NOTE | 2021-05-19 16:37 | Hospitalist Progress Note ---
Date of Service May 19, 2021 Assessment & Plan (1) Acute on chronic HFrEF (heart failure with reduced ejection fraction): Plan: recent heart failure syndrome described. Has underlying presumed ischemic cardiomyopathy with an EF 25% and is wearing a life vest which was given to him on hospital discharge 03/20/21. He is responding well to intravenous diuresis with furosemide-continues on this now. Cont potassium replacement as needed. Cont management per cardiology. Continues on Toprol XL and aspirin. RYLEE/ARB contraindicated in renal disease. Not on statin therapy currently as atorvastatin 40mg (given to him at recent hospital discharge) was placed on hold by outpatient cardiology provider prior to arrival in setting of elevated LFTs. Cont current management. Restart atorvastatin prior to discharge. (2) Acute kidney injury superimposed on chronic kidney disease: Plan: Recent increased diuretic use as outpatient prior to hospitalization. Possible etiology also cardiorenal syndrome per nephro. Baseline creat 2.5. Creatinine improved with diuretic therapy. Cont current management. (3) Ischemic cardiomyopathy: Plan: presumed, cont current medical management. (4) Ventricular tachycardia: Plan: maintains life vest and NSR on telemetry overnight. (5) Atrial fibrillation: Plan: Continue amiodarone, Toprol-XL. warfarin (6) Pain of left heel: Plan: Recent thrombectomy of his left lower extremity in Mar 2021 after an NSTEMI and bilateral thoracentesis. He is subsequently developed purplish rash on his left heel that is painful and appears embolic in nature. There is also a small wound in the same area. Cardiology is touching base with vascular surgery in a.m. for further recommendations. Continue anticoagulation. (7) Aortic stenosis: (8) Elevated transaminase level: Plan: Improving. Likely secondary to congestive hepatopathy, right upper quadrant ultrasound is within normal limits. Would restart atorvastatin at discharge. (9) Anemia in CKD (chronic kidney disease): Plan: Continues on Procrit as outpatient. (10) DVT prophylaxis: Plan: Therapeutic INR, restart warfarin Full code Disposition-continue PCU stay pending cardiology clearance DO [facility] Hospitalist Admission and Anticipated Discharge Date Admission Date: May 14, 2021 Subjective 81 yo M admitted for acute systolic heart failure denies SOB or chest pain doing well overall noted big improvement in LE swelling tolerating PO Review of Systems Review of Systems: All systems reviewed and negative except as indicated above. Physical Exam Physical Exam: CONSTITUTIONAL: WNWD, vitals as above, generally well- appearing, NAD EYES: normal conjunctivae, no scleral icterus ENT: external ear and nose normal, oropharynx clear NECK: trachea midline RESPIRATORY: clear to auscultation throughout, no rales or wheezes, normal respiratory effort CARDIOVASCULAR: regular rate and rhythm, S1 and 2 heard without murmurs, gallops or rubs, no JVD, no peripheral edema CHEST: inspection of chest was normal GASTROINTESTINAL: soft, nontender, ND, no guarding MUSCULOSKELETAL: moves all extremities equally, however, generally weak. Cannot sit up in bed independently. Head is normocephalic and atraumatic, neck supple, normal palpation of chest wall without tenderness SKIN: warm and dry, purplish embolic appearing phenomena on left heal with min wound overlying this area. NEUROLOGIC: CN 2-12 grossly intact, no sensory deficit, normal cognition, normal speech, no tremor, no gross focal deficit, however, gait was not assessed. PSYCHIATRIC: alert cooperative and oriented to person, place and time. Results & Data Results & Data ([facility]) Vital Signs (Past 12 Hours) Vital Signs Temp Pulse Pulse Resp BP Pulse Ox 05/19/21 15:44 86 05/19/21 15:28 36.6 C 67 18 102/64 96 05/19/21 11:40 36.4 C L 72 18 111/70 90 05/19/21 08:00 36.9 C 76 18 122/59 L 95 05/19/21 07:51 73 Laboratory Results Short CBC 05/19/21 Range/Units 05:36 WBC 9.65 (4.8-10.8) K/uL Hgb 9.3 L (14.0-18.0) g/dL Hct 28.7 L (42-52) % Plt Count 294 (130-400) K/uL BMP 05/19/21 05:36 Sodium 137 Potassium 5.1 D Chloride 104 Carbon Dioxide 27 BUN 58 H Creatinine 2.66 H Glucose 118 H Calcium 8.9 Medications Administered Current Inpatient Medications Acetaminophen (Acetaminophen 325 Mg Tab) 650 mg PO Q4H PRN PRN Reason: Pain or Fever Stop: 06/13/21 23:10 Last Admin: 05/17/21 01:04 Dose: 650 mg Documented by: Amiodarone HCl (Amiodarone 200 Mg Tab) 200 mg PO DAILY ABAD Stop: 06/14/21 08:59 Last Admin: 05/19/21 08:57 Dose: 200 mg Documented by: Aspirin (Aspirin 81 Mg Ectab) 81 mg PO QAM ABAD Stop: 06/14/21 08:59 Last Admin: 05/19/21 08:57 Dose: 81 mg Documented by: Azelastine HCl (Azelastine Hcl 0.1% Nasal 200 Sprays/27,400 Mcg Btl) 2 sprays NA BID ABAD Stop: 06/13/21 23:44 Last Admin: 05/19/21 08:57 Dose: 2 sprays Documented by: Cyanocobalamin (Cyanocobalamin 500 Mcg Tablet (Vitamin B-12)) 1,000 mcg PO DAILY ABAD Stop: 06/14/21 08:59 Last Admin: 05/19/21 08:56 Dose: 1,000 mcg Documented by: Fluticasone Propionate (Fluticasone Propionate Na Spr 16 Gm Btl) 1 sprays NA DAILY ABAD Stop: 06/14/21 08:59 Last Admin: 05/19/21 08:57 Dose: 1 sprays Documented by: Furosemide (Furosemide Inj 20 Mg/2 Ml Vial) 20 mg IV Q6H ABAD Stop: 06/17/21 17:59 Last Admin: 05/19/21 12:52 Dose: 20 mg Documented by: Levothyroxine Sodium (Levothyroxine Sodium 75 Mcg Tablet) 75 mcg PO DAILYBB ABAD Stop: 06/14/21 06:29 Last Admin: 05/19/21 05:02 Dose: 75 mcg Documented by: Lorazepam (Lorazepam 0.5 Mg Tab) 0.5 mg PO HS PRN PRN Reason: Insomnia Stop: 06/16/21 03:00 Last Admin: 05/17/21 21:04 Dose: 0.5 mg Documented by: Melatonin (Melatonin 3 Mg Tab) 3 mg PO HS PRN PRN Reason: Sleep Stop: 06/14/21 00:39 Last Admin: 05/16/21 20:46 Dose: 3 mg Documented by: Metoprolol Succinate (Metoprolol Succ 25mg Ext Rel Tab) 25 mg PO PM ABAD Stop: 06/14/21 20:59 Last Admin: 05/18/21 20:01 Dose: 25 mg Documented by: Nitroglycerin (Nitroglycerin Sl 0.4 Mg/Tab Tab) 0.4 mg SL UD PRN PRN Reason: Chest Pain Stop: 06/13/21 23:10 Polyethylene Glycol (Polyethylene (Miralax) 17 Gm Pack) 17 gm PO DAILY PRN PRN Reason: Constipation Stop: 06/15/21 20:48 Potassium Chloride (Potassium Chloride Crtab 20 Meq Tabcr) 20 meq PO BID ABAD Stop: 06/18/21 08:59 Pyridoxine HCl (Pyridoxine Hcl 50 Mg Tab) 100 mg PO BID ABAD Stop: 06/13/21 23:44 Last Admin: 05/19/21 08:56 Dose: 100 mg Documented by: Senna/Docusate Sodium (Docusate Sodium/Senna 50/8.6mg Tab) 1 tab PO HS ABAD Stop: 06/16/21 20:59 Last Admin: 05/18/21 20:00 Dose: 1 tab Documented by: Triamcinolone Acetonide (Triamcinolone Acet 0.1% Oint 15 Gm Tube) 1 appln TOP HS PRN PRN Reason: Rash Stop: 06/13/21 23:10 Vitamin D (Cholecalciferol 1,000 Units 25 Mcg Tab) 1,000 units PO DAILY ABAD Stop: 06/14/21 08:59 Last Admin: 05/19/21 08:57 Dose: 1,000 units Documented by: Warfarin Sodium (Warfarin Sod 2 Mg Tab) 2 mg PO DAILY@1600 [facility] Stop: 06/16/21 15:59 Last Admin: 05/18/21 15:30 Dose: 2 mg Documented by:
[2021-05-19] MEDS: WARFARIN SOD 2 MG TAB PO SCH (17:39)
[2021-05-19] MEDS: METOPROLOL SUCC 25MG EXT REL TAB PO SCH (20:12)
[2021-05-19] MEDS: DOCUSATE SODIUM/SENNA 50/8.6MG TAB PO SCH (20:13)
[2021-05-20] MEDS: LEVOTHYROXINE SODIUM 75 MCG TABLET PO SCH (05:49)
[2021-05-20] MEDS: FUROSEMIDE INJ 20 MG/2 ML VIAL IV SCH ×3 (05:49→19:33)
[2021-05-20] MEDS ORDERED: REGADENOSON 0.4 MG/5 ML SYR IV ONE (07:53)
[2021-05-20] MEDS: FLUTICASONE PROPIONATE NA SPR 16 GM BTL SCH (08:29)
[2021-05-20] MEDS: AZELASTINE HCL 0.1% NASAL 200 SPRAYS/27,400 MCG BTL SCH ×2 (08:29→20:24)
[2021-05-20] MEDS: CYANOCOBALAMIN 500 MCG TABLET (VITAMIN B-12) PO SCH (08:30)
[2021-05-20] MEDS: PYRIDOXINE HCL 50 MG TAB PO SCH ×2 (08:30→20:23)
[2021-05-20] MEDS: AMIODARONE 200 MG TAB PO SCH (08:31)
[2021-05-20] MEDS: CHOLECALCIFEROL 1,000 UNITS 25 MCG TAB PO SCH (08:31)
[2021-05-20] MEDS: ASPIRIN 81 MG ECTAB PO SCH (08:31)
--- NOTE | 2021-05-20 10:49 | Nephrology Progress Note ---
Date of Service May 20, 2021 Assessment & Plan (1) Acute kidney injury superimposed on chronic kidney disease: Plan: stable/slightly improved acute kidney injury on CKD likely due to cardiorenal syndrome. Baseline creatinine of 2.5. Admission creatinine of 3.8 and plateau'd at 2.7 today. He does have a bit more symptomatic volume overload today > has been 1.5L negative past 24 hr -cont lasix 20 mg IV qid but if more sx of sob, return to 40 mg tid IV -standing K to remain on hold ->>>RECOMMEND low K diet when taking po for now -Monitor input output -Daily BMP -daily standing weight (2) Acute decompensated heart failure: Plan: Patient with a low EF of 25% and pulmonary hypertension. Longer term cardiology hopes to do NST, consideration of defibrillator. -diuretics asabove -to complete nuke stress test next 12-24 hr (3) Pain of left heel: Plan: vascular following; for conservative mgt currently; pt s/p LLE thrombectomy 03/2021 during admission for NSTEMI and w/ BL thoracentesis Admission and Anticipated Discharge Date Admission Date: May 14, 2021 Subjective no interval events; NPO for second day of test. feels breathing about the same/unchanged. no n/v Review of Systems Review of Systems: All systems reviewed & are unremarkable except as noted in Subjective Physical Exam Constitutional: well developed and well nourished; no acute distress Eyes: EOM intact bilaterally ENMT: Ears: no external ear abnormality Nose: no external nose abnormality Mouth: + dry oral mucous membranes Neck: no nuchal rigidity Respiratory: + respiratory distress (very slight) and able to speak in complete sentences (w/ intermittent pauses to breathe); no paradoxical thoraco- abdominal movemnt Auscultation: + diminished lung sounds; no crackles Cardiovascular: Rate/Rhythm: regular rate and regular rhythm Extremities: no edema Gastrointestinal (Abdomen): Inspection/Auscultation: normal bowel sounds Percussion/Palpation: abdomen soft; abdomen nontender Musculoskeletal: Extremities: strength 5/5 throughout Skin: no rashes, warm and dry working still at keeping posterior ankles off of bed surface Psychiatric: Orientation: oriented x 3 [facility] Vital Signs (Past 12 Hours) Vital Signs Temp Pulse Pulse Resp BP Pulse Ox 05/20/21 08:22 37.0 C 60 18 144/69 H 95 05/20/21 03:43 36.5 C 67 106/72 99 05/19/21 23:34 36.7 C 85 21 105/68 92 05/19/21 23:00 69 Laboratory Results 05/19/21 05:36 05/19/21 05:36
[2021-05-20 11:43] LABS: Appearance Urine Turbid (Clear); Bacteria Urine Automated 2+ (Negative); Bilirubin Urine Negative (Negative); Blood Urine 3+ (Negative); Color Urine Dark Yellow; Epithelial Cell Urine Auto >30 /lpf (0-5); Glucose Urine UA Negative (Negative); Ketones Urine Negative (Negative); Leukocyte Esterase Urine 3+ (Negative); Nitrite Urine Negative (Negative); Protein Urine 2+ (Negative); Specific Gravity Urine 1.013 (1.000-1.030); Urobilinogen Urine Negative (Negative); WBC Urine Automated >30 /hpf (0-5)
[2021-05-20 12:52] LABS: Hematocrit (blood only) 29.2 % (42-52); Hemoglobin 9.4 g/dL (14.0-18.0); Mean Corpuscular Hemoglobin 37.5 pg (25-34); Mean Corpuscular Hgb Conc 32.2 g/dL (32-36); Mean Corpuscular Volume 116.3 fL (80-100); Mean Platelet Volume 9.9 fL (7.4-10.4); Platelet Count 315 K/uL (130-400); RDW Coefficient of Variation 22.9 % (11.5-14.5); Red Blood Count 2.51 M/uL (4.7-6.1); White Blood Count 7.34 K/uL (4.8-10.8)
[2021-05-20 13:02] LABS: INR 1.9 (0.9-1.1); Prothrombin Time 18.3 Seconds (9.0-12.0)
[2021-05-20 13:19] LABS: BUN Creatinine Ratio 22.8 (10-20); Creatinine Clr Calc Pharmacy 24.5 ml/min; Est GFR (Non-African American) 23.3 ml/min; Potassium 4.4 mmol/L (3.5-5.1)
[2021-05-20] MEDS: cefTRIAXone SODIUM 2,000 MG in DEXTROSE 5% 50 ML IV SCH (13:25)
--- NOTE | 2021-05-20 15:18 | Myocardial Perfusion Study ---
Date of Service May 20, 2021 Myocardial Perfusion Study [facility] Myocardial Perfusion Study Report [place] Act 112: Positive (Results , discussed with patient by the ordering /interpreting provider. Ongoing cardiology follow up arranged. ) Procedure: 1. Myocardial perfusion study performed in multiple views/images 2. Lexiscan pharmacologic stress ECG Indications: Cardiomyopathy, congestive heart failure Ordering physician: Maged Alatorre DO Procedural details: For the stress portion of the study, Lexiscan 0.4 mg was intravenously administered followed by a saline flush. This was followed by 21.24 mCi of technetium 99m Cardiolite, injected at 10:15 AM on 05/20/2021. 30 minutes following the injection, imaging of the heart was performed in multiple projections. For the rest portion of the study, 23.2 mCi technetium 99m Cardiolite was injected intravenously at 1330 on 05/19/2021. 1 hour following the injection, imaging of the heart was performed in the same projections. Lexiscan stress ECG: Pharmacologic myocardial perfusion imaging study was performed with administration of Lexiscan 0.4 mg intravenously. The stress portion of the test was discontinued having completed the end of the predetermined protocol. Resting ECG demonstrated: Sinus rhythm at 64 bpm, with left bundle branch block Maximum heart rate: 71Bpm Maximal, age-predicted heart rate: 50% Resting blood pressure: 115/66 mmHg Maximum blood pressure: 115/[address] changes: Unchanged compared to rest Arrhythmia: None Symptoms: Transient shortness of breath noted with administration of Lexiscan that resolved early in the post-rest recovery interval. Tarry response to Lexiscan was normal, the blood pressure response to Lexiscan was normal. Findings: Rotating raw imaging demonstrated no significant lung uptake. There is no significant motion artifact. Heart size appeared moderately dilated. Myocardial perfusion demonstrated a large sized fixed septal, apical, anterior, and apical inferior wall motion abnormality of severe intensity. The perfusion abnormality spares the lateral myocardial wall, and spares the inferior wall at the basal and mid levels. Ejection fraction: 33% (moderately reduced) Wall motion: Apical, anterior, apical inferior hypokinesis No significant transient ischemic dilation. Impression: 1. There is a large sized fixed septal, apical, anterior, and apical inferior perfusion defect of severe intensity consistent with scar in the LAD coronary territory without superimposed ischemia. 2. Left ventricular chamber size is mildly dilated, moderate left ventricular systolic dysfunction is noted, calculated LVEF 33% by the gated SPECT technique. 3. The stress ECG response is nondiagnostic due to the underlying left bundle branch block.
--- NOTE | 2021-05-20 15:25 | Cardiology Progress Note ---
Date of Service May 20, 2021 Assessment & Plan (1) Acute on chronic HFrEF (heart failure with reduced ejection fraction): (2) Ischemic cardiomyopathy: Plan: Lexiscan myocardial perfusion imaging study performed today reveals a large sized LAD territory scar with LVEF of 33%, and no superimposed ischemia. Based on perfusion study results, the left cardiac catheterization is felt to be low, continue ongoing medical therapy. Continue furosemide 20 mg IV every 6 for now. Ultimately, plan for outpatient EP consultation and outpatient AICD. Typically 3 months of medical therapy indicated post initial diagnosis prior to AICD, and his diagnosis was made on 03/18/2021. (3) Atrial fibrillation: Plan: Currently in sinus rhythm, had 2 episodes of atrial fibrillation, 1 while on nuclear medicine on 05/19 and an additional episode today. Otherwise has been in sinus rhythm since his hospital stay in March. Continue Coumadin, INR 1.9 today. (4) Pain of left heel: Plan: New evidence of infection, but certainly is at risk, continue local wound care. (5) Aortic stenosis: Plan: Underlying moderate aortic stenosis. Admission and Anticipated Discharge Date Admission Date: May 14, 2021 Subjective Patient seen in cardiology follow-up prior to, during and after nuclear stress test today. Diuresing well. Renal function improved slightly. Physical Exam Physical Exam: Temp Pulse Resp BP Pulse Ox 36.8 C 81 18 116/59 L 97 05/20/21 12:00 05/20/21 12:00 05/20/21 12:00 05/20/21 12:00 05/20/21 12:00 Constitutional: + ill appearing; no acute distress Respiratory: Auscultation: + diminished lung sounds (decreased BS at the bases ); no crackles and no wheezes Cardiovascular: Rate/Rhythm: regular rate Heart Sounds: + murmur (1/6 systolic murmur) Extremities: + edema (Edema resolved) Gastrointestinal (Abdomen): normal bowel sounds, soft, nontender, no hepatosplenomegaly Neurologic: PERRL, EOMI, accommodation nl, no face palsy, no dysarthria Results & Data ([facility]) Vital Signs (Past 12 Hours) Vital Signs Temp Pulse Resp BP Pulse Ox 05/20/21 12:00 36.8 C 81 18 116/59 L 97 05/20/21 08:22 37.0 C 60 18 144/69 H 95 05/20/21 03:43 36.5 C 67 106/72 99 Laboratory Results Coagulation INR, 05/20/2021 1.9 05/20/21 Range/Units 12:41 PT 18.3 H (9.0-12.0) Seconds CBC 05/20/21 Range/Units 12:41 WBC 7.34 (4.8-10.8) K/uL RBC 2.51 L (4.7-6.1) M/uL Hgb 9.4 L (14.0-18.0) g/dL Hct 29.2 L (42-52) % Plt Count 315 (130-400) K/uL Comprehensive Metabolic Panel 05/20/21 Range/Units 12:41 Sodium 136 (136-145) mmol/L Potassium 4.4 (3.5-5.1) mmol/L Chloride 101 (98-107) mmol/L Carbon Dioxide 26 (21-32) mmol/L BUN 57 H (7-18) mg/dl Creatinine 2.51 H (0.6-1.4) mg/dl Glucose 107 H (70-99) mg/dl Calcium 9.0 (8.5-10.1) mg/dl Intake and Output 05/20/21 05/20/21 05/20/21 06:59 14:59 22:59 Intake Total 200 / 200 70 / 70 Output Total 850 / 1701 300 / 300 Balance -650 / -1501 -230 / -230 Intake: IV 70 / 70 cefTRIAXone SODIUM 2,000 mg In 70 / 70 Dextrose 5% 50 ml @ 140 mls/hr IV Q24H [facility] Rx#:[id number] Oral 200 / 200 Output: Urine Amount (Catheter) 850 / 1700 300 / 300 Anthony/Indwelling 850 / 1700 300 / 300 Other: Weight 83.7 kg Weight Measurement Method Built in [facility]
--- NOTE | 2021-05-20 18:12 | Communication Note ---
Date of Service: May 20, 2021 Discussed updates with patient's son, Grey, by phone.
[2021-05-20] MEDS: WARFARIN SOD 2 MG TAB PO SCH (19:33)
--- NOTE | 2021-05-20 19:54 | Hospitalist Progress Note ---
Date of Service May 20, 2021 Assessment & Plan (1) Acute on chronic HFrEF (heart failure with reduced ejection fraction): Plan: recent heart failure syndrome described. Has underlying presumed ischemic cardiomyopathy with an EF 25% and is wearing a life vest which was given to him on hospital discharge 03/20/21. He is responding well to intravenous diuresis with furosemide-continues on this now. Cont potassium replacement as needed. Cont management per cardiology. Continues on Toprol XL and aspirin. RYLEE/ARB contraindicated in renal disease. Not on statin therapy currently as atorvastatin 40mg (given to him at recent hospital discharge) was placed on hold by outpatient cardiology provider prior to arrival in setting of elevated LFTs. Cont current management. Likely restart atorvastatin this admission. (2) Acute kidney injury superimposed on chronic kidney disease: Plan: Recent increased diuretic use as outpatient prior to hospitalization. Possible etiology also cardiorenal syndrome per nephro. Baseline creat 2.5. Creatinine improved with diuretic therapy. Cont current management. (3) Ischemic cardiomyopathy: Plan: presumed, cont current medical management. (4) Ventricular tachycardia: Plan: Low ejection fraction, maintains life vest and NSR on telemetry overnight. (5) Atrial fibrillation: Plan: Continue amiodarone, Toprol-XL. Warfarin restarted now that INR 2.3. (6) Pain of left heel: Plan: Dr. Crawford performed a thrombectomy of his left lower extremity in Mar 2021 post NSTEMI and bilateral thoracentesis. He is subsequently developed purplish rash on his left heel that is painful and appears ? embolic in nature. There is also a small wound in the same area. 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 Continue medical management. (7) Aortic stenosis: (8) Elevated transaminase level: Plan: Improving. Likely secondary to congestive hepatopathy, right upper quadrant ultrasound is within normal limits. Would restart atorvastatin at discharge, or when LFTs normalize. (9) Anemia in CKD (chronic kidney disease): Plan: Continues on Procrit as outpatient. (10) DVT prophylaxis: Plan: Warfarin Full code Disposition-continue PCU, PT/OT reevaluation prior to discharge home. Sowmya Bishop DO [facility] Admission and Anticipated Discharge Date Admission Date: May 14, 2021 Subjective 81 yo M admitted for acute systolic heart failure denies SOB or chest pain has insomnia chronically given ativan last few nights with persistent daytime somnolence denies anxiety foot improved after treatment by wound nurse today. Review of Systems Review of Systems: All systems reviewed and negative except as indicated above. Physical Exam Physical Exam: CONSTITUTIONAL: WNWD, vitals as above, generally well- appearing, NAD EYES: normal conjunctivae, no scleral icterus ENT: external ear and nose normal, oropharynx clear NECK: trachea midline RESPIRATORY: clear to auscultation throughout, no rales or wheezes, normal respiratory effort CARDIOVASCULAR: regular rate and rhythm, S1 and 2 heard without murmurs, gallops or rubs, no JVD, no peripheral edema CHEST: inspection of chest was normal GASTROINTESTINAL: soft, nontender, ND, no guarding MUSCULOSKELETAL: moves all extremities equally, however, generally weak. Cannot sit up in bed independently. Head is normocephalic and atraumatic, neck supple, normal palpation of chest wall without tenderness SKIN: warm and dry, purplish appearing lesions on left heal with min wound overlying this area. NEUROLOGIC: CN 2-12 grossly intact, no sensory deficit, normal cognition, normal speech, no tremor, no gross focal deficit, however, gait was not assessed. PSYCHIATRIC: alert cooperative and oriented to person, place and time. Results & Data Results & Data ([facility]) Vital Signs (Past 12 Hours) Vital Signs Temp Pulse Pulse Resp BP Pulse Ox 05/20/21 19:11 36.5 C 81 19 116/77 97 05/20/21 17:00 36.8 C 81 18 116/59 L 97 05/20/21 16:00 66 05/20/21 12:00 36.8 C 81 18 116/59 L 97 05/20/21 08:22 37.0 C 60 18 144/69 H 95 Laboratory Results Short CBC 05/20/21 Range/Units 12:41 WBC 7.34 (4.8-10.8) K/uL Hgb 9.4 L (14.0-18.0) g/dL Hct 29.2 L (42-52) % Plt Count 315 (130-400) K/uL BMP 05/20/21 12:41 Sodium 136 Potassium 4.4 Chloride 101 Carbon Dioxide 26 BUN 57 H Creatinine 2.51 H Glucose 107 H Calcium 9.0 Urine 05/20/21 Range/Units 11:30 Urine Color Dark Yellow Urine Appearance Turbid A (Clear) Urine pH 5.0 (4.5-7.5) Ur Specific [place] 1.013 (1.000-1.030) Urine Protein 2+ H (Negative) Urine Glucose (UA) Negative (Negative) Medications Administered Current Inpatient Medications Acetaminophen (Acetaminophen 325 Mg Tab) 650 mg PO Q4H PRN PRN Reason: Pain or Fever Stop: 06/13/21 23:10 Last Admin: 05/17/21 01:04 Dose: 650 mg Documented by: Amiodarone HCl (Amiodarone 200 Mg Tab) 200 mg PO DAILY [facility] Stop: 06/14/21 08:59 Last Admin: 05/20/21 08:31 Dose: 200 mg Documented by: Aspirin (Aspirin 81 Mg Ectab) 81 mg PO QAM [facility] Stop: 06/14/21 08:59 Last Admin: 05/20/21 08:31 Dose: 81 mg Documented by: Azelastine HCl (Azelastine Hcl 0.1% Nasal 200 Sprays/27,400 Mcg Btl) 2 sprays NA BID [facility] Stop: 06/13/21 23:44 Last Admin: 05/20/21 08:29 Dose: 2 sprays Documented by: Cyanocobalamin (Cyanocobalamin 500 Mcg Tablet (Vitamin B-12)) 1,000 mcg PO DAILY [facility] Stop: 06/14/21 08:59 Last Admin: 05/20/21 08:30 Dose: 1,000 mcg Documented by: Fluticasone Propionate (Fluticasone Propionate Na Spr 16 Gm Btl) 1 sprays NA D AILY [facility] Stop: 06/14/21 08:59 Last Admin: 05/20/21 08:29 Dose: 1 sprays Documented by: Furosemide (Furosemide Inj 20 Mg/2 Ml Vial) 20 mg IV Q6H [facility] Stop: 06/17/21 17:59 Last Admin: 05/20/21 19:33 Dose: 20 mg Documented by: Ceftriaxone Sodium 2,000 mg/ (Dextrose) 70 mls @ 140 mls/hr IV Q24H [facility]; Protocol Stop: 05/25/21 12:59 Last Infusion: 05/20/21 14:07 Dose: Infused Documented by: Levothyroxine Sodium (Levothyroxine Sodium 75 Mcg Tablet) 75 mcg PO DAILYBB [facility] Stop: 06/14/21 06:29 Last Admin: 05/20/21 05:49 Dose: 75 mcg Documented by: Lorazepam (Lorazepam 0.5 Mg Tab) 0.5 mg PO HS PRN PRN Reason: Insomnia Stop: 06/16/21 03:00 Last Admin: 05/17/21 21:04 Dose: 0.5 mg Documented by: Melatonin (Melatonin 3 Mg Tab) 3 mg PO HS PRN PRN Reason: Sleep Stop: 06/14/21 00:39 Last Admin: 05/16/21 20:46 Dose: 3 mg Documented by: Metoprolol Succinate (Metoprolol Succ 25mg Ext Rel Tab) 25 mg PO PM [facility]AD Stop: 06/14/21 20:59 Last Admin: 05/19/21 20:12 Dose: 25 mg Documented by: Nitroglycerin (Nitroglycerin Sl 0.4 Mg/Tab Tab) 0.4 mg SL UD PRN PRN Reason: Chest Pain Stop: 06/13/21 23:10 Polyethylene Glycol (Polyethylene (Miralax) 17 Gm Pack) 17 gm PO DAILY PRN PRN Reason: Constipation Stop: 06/15/21 20:48 Potassium Chloride (Potassium Chloride Crtab 20 Meq Tabcr) 20 meq PO BID [facility] Stop: 06/18/21 08:59 Pyridoxine HCl (Pyridoxine Hcl 50 Mg Tab) 100 mg PO BID [facility] Stop: 06/13/21 23:44 Last Admin: 05/20/21 08:30 Dose: 100 mg Documented by: Senna/Docusate Sodium (Docusate Sodium/Senna 50/8.6mg Tab) 1 tab PO HS ABAD Stop: 06/16/21 20:59 Last Admin: 05/19/21 20:13 Dose: 1 tab Documented by: Triamcinolone Acetonide (Triamcinolone Acet 0.1% Oint 15 Gm Tube) 1 appln TOP HS PRN PRN Reason: Rash Stop: 06/13/21 23:10 Vitamin D (Cholecalciferol 1,000 Units 25 Mcg Tab) 1,000 units PO DAILY [facility] Stop: 06/14/21 08:59 Last Admin: 05/20/21 08:31 Dose: 1,000 units Documented by: Warfarin Sodium (Warfarin Sod 2 Mg Tab) 2 mg PO DAILY@1600 [facility] Stop: 06/16/21 15:59 Last Admin: 05/20/21 19:33 Dose: 2 mg Documented by:
[2021-05-20] MEDS: DOCUSATE SODIUM/SENNA 50/8.6MG TAB PO SCH (20:23)
[2021-05-20] MEDS: METOPROLOL SUCC 25MG EXT REL TAB PO SCH (20:23)
[2021-05-21] MEDS: FUROSEMIDE INJ 20 MG/2 ML VIAL IV SCH ×2 (01:05→06:34)
[2021-05-21 06:33] LABS: INR 2.2 (0.9-1.1); Prothrombin Time 21.4 Seconds (9.0-12.0)
[2021-05-21] MEDS: LEVOTHYROXINE SODIUM 75 MCG TABLET PO SCH (06:34)
--- NOTE | 2021-05-21 06:42 | Communication Note ---
Date of Service: May 21, 2021 Pt received am dose of furosemide 20 mg IV at 6 am today. Lasix now discontinued pending results of am labs and assessment, for consideration of dose change. Will consider removal of Anthony catheter today and getting pt in bedside chair . Update EKG due to recurrent PAF.
[2021-05-21 06:56] LABS: Albumin Level 3.1 gm/dl (3.4-5.0); BUN Creatinine Ratio 22.4 (10-20); Bilirubin Direct 0.6 mg/dl (0-0.2); Calcium 8.7 mg/dl (8.5-10.1); Est GFR (African American) 24.9 ml/min; Est GFR (Non-African American) 21.5 ml/min; Potassium 3.8 mmol/L (3.5-5.1)
[2021-05-21 06:59] LABS: Bilirubin,Total 1.4 mg/dl (0.2-1); Total Protein 6.1 gm/dl (6.4-8.2)
[2021-05-21] MEDS: AMIODARONE 200 MG TAB PO SCH (08:41)
[2021-05-21] MEDS: ASPIRIN 81 MG ECTAB PO SCH (08:41)
[2021-05-21] MEDS: PYRIDOXINE HCL 50 MG TAB PO SCH ×2 (08:42→20:38)
[2021-05-21] MEDS: AZELASTINE HCL 0.1% NASAL 200 SPRAYS/27,400 MCG BTL SCH ×2 (08:42→20:36)
[2021-05-21] MEDS: FLUTICASONE PROPIONATE NA SPR 16 GM BTL SCH (08:42)
[2021-05-21] MEDS: CHOLECALCIFEROL 1,000 UNITS 25 MCG TAB PO SCH (08:42)
[2021-05-21] MEDS: CYANOCOBALAMIN 500 MCG TABLET (VITAMIN B-12) PO SCH (08:42)
--- NOTE | 2021-05-21 10:28 | XRay Report ---
XR chest 2V PA/lateral CLINICAL HISTORY: follow up CHF TECHNIQUE: AP and lateral frontal radiograph of the chest was obtained. Comparison: Comparison is made to chest one view 05/14/2021 FINDINGS: No lines and tubes are seen. Cardiomegaly is noted. Prominence and cephalization of the vasculature i s seen. Small bilateral pleural effusions are seen. IMPRESSION: Mild pulmonary edema. Bilateral pleural effusions again noted. Stable cardiomegaly. ACT 112: Negative or not required by law. Electronically signed by: Luciano Monterroso M.D. 05/21/2021 10:27 AM
[2021-05-21] MEDS: ATORVASTATIN 40 MG TAB PO SCH (10:33)
--- NOTE | 2021-05-21 11:54 | Cardiology Progress Note ---
Date of Service May 21, 2021 Assessment & Plan (1) Acute on chronic HFrEF (heart failure with reduced ejection fraction): (2) Ischemic cardiomyopathy: (3) Atrial fibrillation: Plan: Nuclear stress, LAD territory scar without ischemia. CXR with ongoing pulmonary edema. Agree with Rocephin for for gram negative bacilli. Increase furosemide back to 40 mg IV TID Inpatient / outpatient wound care / clinic for left heel pressure sore. Outpt EP consult for consideration of CHEMICAL PRODUCTION ENGINEER capable ICD after 3 months of medical RX, around 06/26/21. Atorvastatin resumed. Had two brief episodes of AF on 05/19 and 05/20, continue metoprolol, amiodarone, coumadin. Updated son, Jose A, by phone. Admission and Anticipated Discharge Date Admission Date: May 14, 2021 Subjective Pt seen in follow up. SR in the 60s with LBBB noted on EKG and telemetry this am. Physical Exam Physical Exam: Temp Pulse Resp BP Pulse Ox 36.5 C 65 20 113/69 98 05/21/21 08:00 05/21/21 08:00 05/21/21 08:00 05/21/21 08:00 05/21/21 08:00 Constitutional: + ill appearing; no acute distress Respiratory: Auscultation: + diminished lung sounds (decreased BS at the bases ); no crackles and no wheezes Cardiovascular: Rate/Rhythm: regular rate Heart Sounds: + murmur (1/6 systo lic murmur) Extremities: + edema (Edema resolved) Gastrointestinal (Abdomen): normal bowel sounds, soft, nontender, no hepatosplenomegaly Neurologic: PERRL, EOMI, accommodation nl, no face palsy, no dysarthria Results & Data ([facility]) Vital Signs (Past 12 Hours) Vital Signs Temp Pulse Pulse Resp BP Pulse Ox 05/21/21 08:00 36.5 C 65 20 113/69 98 05/21/21 07:27 65 05/21/21 04:11 36.6 C 111 H 19 116/70 91 Laboratory Results INR 2.2. Creatinine 2.68
[2021-05-21] MEDS: cefTRIAXone SODIUM 2,000 MG in DEXTROSE 5% 50 ML IV SCH (13:13)
--- NOTE | 2021-05-21 13:18 | Nephrology Progress Note ---
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 Baseline creatinine of 2.5. Admission creatinine of 3.8 and plateau'd at about 2.6 for several days. He does have a bit more symptomatic volume overload today > has been 0.8L negative past 24 hr -d/w cardiology late morning and w/ concerns for worsening fluid status will go back to lasix 40 mg tid -resumed K 20 mEq bid -Monitor input output -Daily BMP -daily standing weight (2) Acute decompensated heart failure: Plan: Patient with a low EF of 25% (33% on lexiscan) and pulmonary hypertension. Long er term cardiology hopes to do NST, consideration of defibrillator. -diuretics asabove (3) Pain of left heel: Plan: vascular following; for conservative mgt currently; pt s/p LLE thrombectomy 03/2021 during admission for NSTEMI and w/ BL thoracentesis Admission and Anticipated Discharge Date Admission Date: May 14, 2021 Subjective seen on rounds at 0710 this am; feels breathing unchanged; no worsening L heel pain; no n/v Review of Systems Review of Systems: All systems reviewed & are unremarkable except as noted in Subjective Physical Exam Constitutional: well developed and well nourished; no acute distress Eyes: EOM intact bilaterally ENMT: Ears: no external ear abnormality Nose: no external nose abnormality Mouth: + dry oral mucous membranes Neck: no nuchal rigidity Respiratory: + labored breathing (slight) and able to speak in complete sentences (w/ intermittent pauses to breathe); no paradoxical thoraco-abdominal movemnt Auscultation: + diminished lung sounds; no crackles Cardiovascular: Rate/Rhythm: regular rate and regular rhythm Extremities: no edema Gastrointestinal (Abdomen): Inspection/Auscultation: normal bowel sounds Percussion/Palpation: abdomen soft; abdomen nontender Musculoskeletal: Extremities: strength 5/5 throughout Skin: no rashes, warm and dry Psychiatric: Orientation: oriented x 3 (but tired/ slow to answer (woke him up)) Results & Data ([facility]) Vital Signs (Past 12 Hours) Vital Signs Temp Pulse Pulse Resp BP Pulse Ox 05/21/21 12:11 36.5 C 65 18 97/74 L 95 05/21/21 08:00 36.5 C 65 20 113/69 98 05/21/21 07:27 65 05/21/21 04:11 36.6 C 111 H 19 116/70 91 Laboratory Results 05/20/21 12:41 05/21/21 05:30 Diagnostic Findings Lexiscan 1. There is a large sized fixed septal, apical, anterior, and apical inferior perfusion defect of severe intensity consistent with scar in the LAD coronary t erritory without superimposed ischemia. 2. Left ventricular chamber size is mildly dilated, moderate left ventricular systolic dysfunction is noted, calculated LVEF 33% by the gated SPECT technique. 3. The stress ECG response is nondiagnostic due to the underlying left bundle branch block. CXR mild plm edema, small BL pl effusions
[2021-05-21] MEDS: FUROSEMIDE 40 MG/4 ML VIAL IV SCH ×2 (14:37→20:38)
--- NOTE | 2021-05-21 15:08 | Electrocardiogram Report ---
Test Reason : Blood Pressure : / mmHG Vent. Rate : 065 BPM Atrial Rate : 065 BPM P-R Int : 208 ms QRS Dur : 178 ms QT Int : 544 ms P-R-T Axes : 076 028 177 degrees QTc Int : 565 ms Normal sinus rhythm Left bundle branch block Abnormal ECG When compared with ECG of 16-MAY-2021 10:36, No significant change was found Confirmed by Segundo Page ([id number]) on 05/21/2021 3:08:17 PM Referred By: Ros Maynard Confirmed By:Segundo Paeg
[2021-05-21] MEDS: WARFARIN SOD 2 MG TAB PO SCH (16:57)
[2021-05-21] MEDS: DOCUSATE SODIUM/SENNA 50/8.6MG TAB PO SCH (20:37)
[2021-05-21] MEDS: POTASSIUM CHLORIDE CRTAB 20 MEQ TABCR PO SCH (20:38)
[2021-05-21] MEDS: METOPROLOL SUCC 25MG EXT REL TAB PO SCH (20:39)
[2021-05-22] MEDS: LEVOTHYROXINE SODIUM 75 MCG TABLET PO SCH (06:03)
[2021-05-22 08:20] LABS: BUN Creatinine Ratio 21.8 (10-20); Calcium 8.7 mg/dl (8.5-10.1); Creatinine Clr Calc Pharmacy 22.8 ml/min; Est GFR (African American) 25.1 ml/min; Est GFR (Non-African American) 21.7 ml/min; Potassium 3.7 mmol/L (3.5-5.1)
[2021-05-22 08:26] LABS: INR 2.1 (0.9-1.1); Prothrombin Time 19.9 Seconds (9.0-12.0)
[2021-05-22] MEDS: ASPIRIN 81 MG ECTAB PO SCH (08:30)
[2021-05-22] MEDS: FUROSEMIDE 40 MG/4 ML VIAL IV SCH ×3 (08:30→17:51)
[2021-05-22] MEDS: PYRIDOXINE HCL 50 MG TAB PO SCH ×2 (08:31→20:36)
[2021-05-22] MEDS: CYANOCOBALAMIN 500 MCG TABLET (VITAMIN B-12) PO SCH (08:31)
[2021-05-22] MEDS: AMIODARONE 200 MG TAB PO SCH (08:31)
[2021-05-22] MEDS: POTASSIUM CHLORIDE CRTAB 20 MEQ TABCR PO SCH ×2 (08:31→20:35)
[2021-05-22] MEDS: CHOLECALCIFEROL 1,000 UNITS 25 MCG TAB PO SCH (08:31)
[2021-05-22] MEDS: ATORVASTATIN 40 MG TAB PO SCH (08:31)
[2021-05-22] MEDS: AZELASTINE HCL 0.1% NASAL 200 SPRAYS/27,400 MCG BTL SCH ×2 (08:32→20:33)
[2021-05-22] MEDS: FLUTICASONE PROPIONATE NA SPR 16 GM BTL SCH (08:32)
--- NOTE | 2021-05-22 13:02 | Cardiology Progress Note ---
Date of Service May 22, 2021 Assessment & Plan (1) Acute on chronic HFrEF (heart failure with reduced ejection fraction): (2) Ischemic cardiomyopathy: (3) Atrial fibrillation: (4) UTI (urinary tract infection): Plan: Lexiscan nuclear stress test images personally reviewed. Evidence of myocardial scar without superimposed ischemia. Chest x-ray performed yesterday reveals pulmonary edema with bilateral pleural effusions. Continue intravenous furosemide 40 mg 3 times daily. Monitor daily weight, fluid balance, GFR, and electrolytes. Inpatient/outpatient wound care clinic for left heel pressure ulcer. Vascular surgery input appreciated. Outpatient electrophysiology consultation consideration for REPORTS ANALYST capable ICD after 3 months of evidence-based medical therapy (approximately 06/26/2021). Admission and Anticipated Discharge Date Admission Date: May 14, 2021 Subjective Patient seen and examined at bedside. Reports feeling unwell today as well as over the past few days. Notes fatigue and poor appetite. Fluid balance minimally negative per chart assessment. Tolerating Lasix 40 mg 3 times daily. Serum creatinine unchanged. Telemetry reveals sinus rhythm. No orthopnea, PND, or edema. Urine culture growing E. coli. Review of Systems Review of Systems: All systems reviewed & are unremarkable except as noted in Subjective Physical Exam Constitutional: + ill appearing; no acute distress Respiratory: normal respiratory effort; no respiratory distress, no labored breathing and no retractions Auscultation: + diminished lung sounds (Bases bilateral) and + rales (Bases bilateral); no rhonchi and no wheezes Cardiovascular: Rate/Rhythm: regular rate and regular rhythm Heart Sounds: normal S1 and normal S2; no murmur Vessels: no JVD and no carotid bruit Extremities: no edema Gastrointestinal (Abdomen): Inspection/Auscultation: abdomen normal to inspection and normal bowel sounds; abdomen not distended Percussion/Palpation: abdomen soft; abdomen nontender, no guarding and abdomen not rigid Neurologic: CN's II-XI intact bilaterally and moves all extremities; no focal motor deficits Motor/Sensory: no tremor Results & Data ([facility]) Vital Signs (Past 12 Hours) Vital Signs Temp Pulse Pulse Resp BP Pulse Ox 05/22/21 11:23 36.4 C L 63 20 102/65 97 05/22/21 07:18 61 05/22/21 06:35 36.6 C 64 18 113/71 94 05/22/21 03:22 36.5 C 64 19 105/68 95
--- NOTE | 2021-05-22 13:06 | Nephrology Progress Note ---
Date of Service May 22, 2021 Assessment & Plan (1) Acute kidney injury superimposed on chronic kidney disease: Plan: history of acute kidney injury on CKD4 due to cardiorenal syndrome and now resolved. Baseline creatinine of 2.5. Admission creatinine of 3.8 and plateau'd at about 2.6 for several days. He does have a bit more symptomatic volume overload today > has been 0.8L negative past 24 hr -w/ worsening dyspnea > cont lasix 40 mg tid IV but remtimed it to be 0600, noon, 1800 -increased K dose to 40 mEq bid -Monitor input output -Daily BMP -daily standing weight (2) Acute decompensated heart failure: Plan: Patient with a low EF of 25% (33% on lexiscan) and pulmonary hypertension. Longer term cardiology hopes to do NST, consideration of defibrillator. -diuretics asabove (3) Pain of left heel: Plan: vascular following; for conservative mgt currently; pt s/p LLE thrombectomy 03/2021 during admission for NSTEMI and w/ BL thoracentesis Admission and Anticipated Discharge Date Admission Date: May 14, 2021 Subjective Feels more short of breath today than he did prior to admission. Also was up all night using urinal and so very little sleep. Tells me he feels "lousy". No worsening or bothersome left foot pain currently Review of Systems Review of Systems: All systems reviewed & are unremarkable except as noted in Subjective Physical Exam Constitutional: well developed and well nourished; no acute distress Eyes: EOM intact bilaterally ENMT: Ears: no external ear abnormality Nose: no external nose abnormality Mouth: + dry oral mucous membranes Neck: no nuchal rigidity Respiratory: + labored breathing (slight), able to speak in complete sentences (w/ intermittent pauses to breathe) and + paradoxical thoraco-abdominal movement Auscultation: + diminished lung sounds and + crackles (Bibasilar) Cardiovascular: Rate/Rhythm: regular rate and regular rhythm Extremities: no edema Life vest in place Gastrointestinal (Abdomen): Inspection/Auscultation: normal bowel sounds Percussion/Palpation: abdomen soft; abdomen nontender Musculoskeletal: Extremities: strength 5/5 throughout Skin: no rashes, warm and dry Left heel examined Psychiatric: Orientation: oriented x 3 (but tired/ slow to answer (woke him up)) Results & Data ([facility]) Vital Signs (Past 12 Hours) Vital Signs Temp Pulse Pulse Resp BP Pulse Ox 05/22/21 11:23 36.4 C L 63 20 102/65 97 05/22/21 07:18 61 05/22/21 06:35 36.6 C 64 18 113/71 94 05/22/21 03:22 36.5 C 64 19 105/68 95 Laboratory Results 05/20/21 12:41 05/22/21 07:11
[2021-05-22] MEDS: cefTRIAXone SODIUM 2,000 MG in DEXTROSE 5% 50 ML IV SCH (13:10)
[2021-05-22] MEDS: POLYETHYLENE (MIRALAX) 17 GM PACK PO PRN (13:10)
--- NOTE | 2021-05-22 13:20 | Hospitalist Progress Note ---
Date of Service May 22, 2021 Assessment & Plan (1) Acute on chronic HFrEF (heart failure with reduced ejection fraction): Plan: Has underlying presumed ischemic cardiomyopathy with an EF 25% and is wearing a life vest which was given to him on hospital discharge 03/20/21. 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 RYLEE/ARB contraindicated in renal disease. Not on statin therapy currently as atorvastatin 40mg (given to him at recent hospital discharge) was placed on hold by outpatient cardiology provider prior to arrival in setting of elevated LFTs. Plan to restart atorvastatin (2) Acute kidney injury superimposed on chronic kidney disease: Plan: Recent increased diuretic use as outpatient prior to hospitalization. Possible etiology also cardiorenal syndrome per nephro. Baseline creat 2.5. Creatinine improved with diuretic therapy. Cont current management. Picker / Packer recommendation noted. (3) Ischemic cardiomyopathy: Plan: As above (4) Ventricular tachycardia: Plan: maintains life vest (5) Atrial fibrillation: Plan: Continue amiodarone, Toprol-XL. warfarin (6) Pain of left heel: Plan: Recent thrombectomy of his left lower extremity in Mar 2021 after an NSTEMI and bilateral thoracentesis. He is subsequently developed purplish rash on his left heel that is painful and appears embolic in nature. There is also a small wound in the same area. Wound care for left heel sore (7) Aortic stenosis: (8) Elevated transaminase level: Plan: Improving. Likely secondary to congestive hepatopathy, right upper quadrant ultrasound is within normal limits. Plan to restart atorvastatin at discharge and PCP to monitor. (9) Anemia in CKD (chronic kidney disease): Plan: Continues on Procrit as outpatient. (10) DVT prophylaxis: Plan: Therapeutic INR, on warfarin. Monitor INR Full code Disposition-continue PCU stay pending cardiology clearance Admission and Anticipated Discharge Date Admission Date: May 14, 2021 Subjective Patient seen and examined. Reports increased urine output frequency. Reports some mild dysuria. Denies any fevers, chills Denies any shortness of breath at rest or chest pain Reports occasional mild cough. Denies any nausea, vomiting, abdominal pain or diarrhea Physical Exam Constitutional: + well hydrated; no acute distress Eyes: PERRL, conjunctivae normal, anicteric sclerae ENMT: external ear and nose normal, oropharynx normal Respiratory: Room air, basilar crackles Cardiovascular: RRR, S1-S2 Chest (Breasts): Additional Comments: LifeVest on Gastrointestinal (Abdomen): normal bowel sounds, soft, nontender, no hepatosplenomegaly Musculoskeletal: no cyanosis or clubbing, extremities motor strength 5/5 Neurologic: PERRL, EOMI, accommodation nl, no face palsy, no dysarthria Psychiatric: A+Ox3, euthymic affect Results & Data Results & Data ([facility]) Vital Signs (Past 12 Hours) Vital Signs Temp Pulse Pulse Resp BP Pulse Ox 05/22/21 11:23 36.4 C L 63 20 102/65 97 05/22/21 07:18 61 05/22/21 06:35 36.6 C 64 18 113/71 94 05/22/21 03:22 36.5 C 64 19 105/68 95 Laboratory Results Abnormal lab results 05/22/21 05/22/21 Range/Units 07:11 07:11 PT 19.9 H (9.0-12.0) Seconds INR 2.1 H (0.9-1.1) BUN 58 H (7-18) mg/dl Creatinine 2.66 H (0.6-1.4) mg/dl BUN/Creatinine Ratio 21.8 H (10-20) Glucose 104 H (70-99) mg/dl
[2021-05-22] MEDS: WARFARIN SOD 2 MG TAB PO SCH (15:50)
[2021-05-22] MEDS: DOCUSATE SODIUM/SENNA 50/8.6MG TAB PO SCH (20:34)
[2021-05-22] MEDS: METOPROLOL SUCC 25MG EXT REL TAB PO SCH (20:35)
[2021-05-23] MEDS: LEVOTHYROXINE SODIUM 75 MCG TABLET PO SCH (05:47)
[2021-05-23] MEDS: FUROSEMIDE 40 MG/4 ML VIAL IV SCH ×3 (05:48→17:08)
[2021-05-23 08:00] LABS: Hematocrit (blood only) 26.3 % (42-52); Hemoglobin 8.5 g/dL (14.0-18.0); Mean Corpuscular Hemoglobin 37.8 pg (25-34); Mean Corpuscular Hgb Conc 32.3 g/dL (32-36); Mean Corpuscular Volume 116.9 fL (80-100); Mean Platelet Volume 9.8 fL (7.4-10.4); Platelet Count 341 K/uL (130-400); RDW Coefficient of Variation 22.8 % (11.5-14.5); RDW Standard Deviation 94.3 fL (36.4-46.3); Red Blood Count 2.25 M/uL (4.7-6.1); White Blood Count 11.66 K/uL (4.8-10.8)
[2021-05-23] MEDS: ASPIRIN 81 MG ECTAB PO SCH (08:15)
[2021-05-23] MEDS: CYANOCOBALAMIN 500 MCG TABLET (VITAMIN B-12) PO SCH (08:15)
[2021-05-23] MEDS: ATORVASTATIN 40 MG TAB PO SCH (08:15)
[2021-05-23] MEDS: CHOLECALCIFEROL 1,000 UNITS 25 MCG TAB PO SCH (08:15)
[2021-05-23] MEDS: POTASSIUM CHLORIDE CRTAB 20 MEQ TABCR PO SCH ×2 (08:15→21:04)
[2021-05-23] MEDS: PYRIDOXINE HCL 50 MG TAB PO SCH ×2 (08:16→21:06)
[2021-05-23] MEDS: FLUTICASONE PROPIONATE NA SPR 16 GM BTL SCH (08:16)
[2021-05-23] MEDS: AZELASTINE HCL 0.1% NASAL 200 SPRAYS/27,400 MCG BTL SCH ×2 (08:16→21:03)
[2021-05-23 08:20] LABS: INR 2.2 (0.9-1.1); Prothrombin Time 21.1 Seconds (9.0-12.0)
[2021-05-23] MEDS: AMIODARONE 200 MG TAB PO SCH (08:20)
[2021-05-23] MEDS: POLYETHYLENE (MIRALAX) 17 GM PACK PO PRN (08:25)
[2021-05-23 08:26] LABS: BUN Creatinine Ratio 20.4 (10-20); Calcium 8.5 mg/dl (8.5-10.1); Creatinine Clr Calc Pharmacy 21.7 ml/min; Est GFR (African American) 23.7 ml/min; Est GFR (Non-African American) 20.5 ml/min; Magnesium 2.5 mg/dl (1.8-2.4)
--- NOTE | 2021-05-23 10:52 | Cardiology Progress Note ---
Date of Service May 23, 2021 Assessment & Plan (1) Acute on chronic HFrEF (heart failure with reduced ejection fraction): (2) Ischemic cardiomyopathy: (3) Atrial fibrillation: (4) UTI (urinary tract infection): Plan: Lexiscan nuclear stress test (images personally reviewed) demonstrates myocardial scar without superimposed ischemia. Continue intravenous furosemide 40 mg 3 times daily. Monitor daily weight, fluid balance, GFR, and electrolytes. Inpatient/outpatient wound care clinic for left heel pressure ulcer. Vascular surgery input appreciated. Outpatient electrophysiology consultation consideration for CLINICAL NURSE SPECIALIST capable ICD after 3 months of evidence-based medical therapy (approximately 06/26/2021). Admission and Anticipated Discharge Date Admission Date: May 14, 2021 Subjective Patient seen examined the bedside. Feeling better today. Fluid balance negative approximately 500 cc. Creatinine remained stable. INR is therapeutic. Remains in sinus rhythm on telemetry. No recurrent dysrhythmia. Left heel discomfort controlled. Review of Systems Review of Systems: All systems reviewed & are unremarkable except as noted in Subjective Physical Exam Constitutional: + ill appearing; no acute distress Respiratory: normal respiratory effort; no respiratory distress, no labored breathing and no retractions Auscultation: + diminished lung sounds (Bases bilateral) and + rales (Bases bilateral); no rhonchi and no wheezes Cardiovascular: Rate/Rhythm: regular rate and regular rhythm Heart Sounds: normal S1 and normal S2; no murmur Vessels: no JVD and no carotid bruit Extremities: no edema Gastrointestinal (Abdomen): Inspection/Auscultation: abdomen normal to inspection and normal bowel sounds; abdomen not distended Percussion/Palpation: abdomen soft; abdomen nontender, no guarding and abdomen not rigid Neurologic: CN's II-XI intact bilaterally and moves all extremities; no focal motor deficits Motor/Sensory: no tremor Results & Data ([facility]) Vital Signs (Past 12 Hours) Vital Signs Temp Pulse Pulse Resp BP Pulse Ox 05/23/21 08:21 67 105/64 05/23/21 07:26 36.9 C 71 18 99/56 L 94 05/23/21 07:21 71 05/23/21 03:34 36.6 C 71 17 103/66 93 05/22/21 23:20 36.7 C 73 19 93/60 L 95
--- NOTE | 2021-05-23 10:56 | Hospitalist Progress Note ---
Date of Service May 23, 2021 Assessment & Plan (1) Acute on chronic HFrEF (heart failure with reduced ejection fraction): Plan: Has underlying presumed ischemic cardiomyopathy with an EF 25% and is wearing a life vest which was given to him on hospital discharge 03/20/21. 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 RYLEE/ARB contraindicated in renal disease. Not on statin therapy currently as atorvastatin 40mg (given to him at recent hospital discharge) was placed on hold by outpatient cardiology provider prior to arrival in setting of elevated LFTs. Plan to restart atorvastatin on discharge and monitor (2) Acute kidney injury superimposed on chronic kidney disease: Plan: Recent increased diuretic use as outpatient prior to hospitalization. Possible etiology also cardiorenal syndrome per nephro. Baseline creat 2.5. Creatinine improved with diuretic therapy. Cont current management. Rotary Filter Operator recommendation noted. (3) Ischemic cardiomyopathy: Plan: As above (4) Ventricular tachycardia: Plan: maintains life vest (5) Atrial fibrillation: Plan: Continue amiodarone, Toprol-XL. warfarin (6) Pain of left heel: Plan: Recent thrombectomy of his left lower extremity in Mar 2021 after an NSTEMI and bilateral thoracentesis. He is subsequently developed purplish rash on his left heel that is painful and appears embolic in nature. There is also a small wound in the same area. Wound care for left heel sore (7) Aortic stenosis: (8) Elevated transaminase level: Plan: Improving. Likely secondary to congestive hepatopathy, right upper quadrant ultrasound is within normal limits. Plan to restart atorvastatin at discharge and PCP to monitor. (9) Anemia in CKD (chronic kidney disease): Plan: Continues on Procrit as outpatient. Hb is 8.5 today (10) DVT prophylaxis: Plan: Therapeutic INR, on warfarin. Monitor INR Full code Disposition-continue PCU stay pending cardiology clearance Admission and Anticipated Discharge Date Admission Date: May 14, 2021 Subjective Patient seen and examined. Reports increased urine output frequency. Reports some mild dysuria. Denies any fevers, chills Denies any shortness of breath at rest, cough or chest pain Denies any nausea, vomiting, abdominal pain or diarrhea Physical Exam Constitutional: + well hydrated; no acute distress Eyes: PERRL, conjunctivae normal, anicteric sclerae ENMT: external ear and nose normal, oropharynx normal Respiratory: Diminished breath sounds lung bases Cardiovascular: RRR S1 S2 Gastrointestinal (Abdomen): normal bowel sounds, soft, nontender, no hepatosplenomegaly Musculoskeletal: no cyanosis or clubbing, extremities motor strength 5/5 Neurologic: PERRL, EOMI, accommodation nl, no face palsy, no dysarthria Psychiatric: A+Ox3, euthymic affect Results & Data Results & Data ([facility]) Vital Signs (Past 12 Hours) Vital Signs Temp Pulse Pulse Resp BP Pulse Ox 05/23/21 08:21 67 105/64 05/23/21 07:26 36.9 C 71 18 99/56 L 94 05/23/21 07:21 71 05/23/21 03:34 36.6 C 71 17 103/66 93 05/22/21 23:20 36.7 C 73 19 93/60 L 95 Laboratory Results Abnormal lab results 05/23/21 05/23/21 05/23/21 Range/Units 07:51 07:51 07:51 WBC 11.66 H (4.8-10.8) K/uL RBC 2.25 L (4.7-6.1) M/uL Hgb 8.5 L (14.0-18.0) g/dL Hct 26.3 L (42-52) % MCV 116.9 H (80-100) fL MCH 37.8 H (25-34) pg RDW Std Deviation 94.3 H (36.4-46.3) fL RDW Coeff of Geovanni 22.8 H (11.5-14.5) % PT 21.1 H (9.0-12.0) Seconds INR 2.2 H (0.9-1.1) BUN 57 H (7-18) mg/dl Creatinine 2.79 H (0.6-1.4) mg/dl BUN/Creatinine Ratio 20.4 H (10-20) Glucose 123 H (70-99) mg/dl Magnesium 2.5 H (1.8-2.4) mg/dl
[2021-05-23] MEDS: cefTRIAXone SODIUM 2,000 MG in DEXTROSE 5% 50 ML IV SCH (12:05)
[2021-05-23] MEDS: WARFARIN SOD 2 MG TAB PO SCH (17:08)
[2021-05-23] MEDS: METOPROLOL SUCC 25MG EXT REL TAB PO SCH (21:04)
[2021-05-23] MEDS: DOCUSATE SODIUM/SENNA 50/8.6MG TAB PO SCH (21:04)
[2021-05-24] MEDS: LEVOTHYROXINE SODIUM 75 MCG TABLET PO SCH (06:05)
[2021-05-24] MEDS: FUROSEMIDE 40 MG/4 ML VIAL IV SCH ×2 (06:05→16:24)
[2021-05-24 08:00] LABS: Hematocrit (blood only) 25.1 % (42-52); Hemoglobin 8.1 g/dL (14.0-18.0); Mean Corpuscular Hgb Conc 32.3 g/dL (32-36); Mean Corpuscular Volume 117.8 fL (80-100); Mean Platelet Volume 10.2 fL (7.4-10.4); Platelet Count 320 K/uL (130-400); RDW Coefficient of Variation 22.9 % (11.5-14.5); RDW Standard Deviation 96.8 fL (36.4-46.3); Red Blood Count 2.13 M/uL (4.7-6.1); White Blood Count 10.88 K/uL (4.8-10.8)
[2021-05-24] MEDS: AZELASTINE HCL 0.1% NASAL 200 SPRAYS/27,400 MCG BTL SCH ×2 (08:04→20:25)
[2021-05-24] MEDS: POTASSIUM CHLORIDE CRTAB 20 MEQ TABCR PO SCH (08:05)
[2021-05-24] MEDS: CHOLECALCIFEROL 1,000 UNITS 25 MCG TAB PO SCH (08:05)
[2021-05-24] MEDS: CYANOCOBALAMIN 500 MCG TABLET (VITAMIN B-12) PO SCH (08:05)
[2021-05-24] MEDS: ATORVASTATIN 40 MG TAB PO SCH (08:05)
[2021-05-24] MEDS: AMIODARONE 200 MG TAB PO SCH (08:05)
[2021-05-24] MEDS: ASPIRIN 81 MG ECTAB PO SCH (08:06)
[2021-05-24] MEDS: FLUTICASONE PROPIONATE NA SPR 16 GM BTL SCH (08:06)
[2021-05-24] MEDS: PYRIDOXINE HCL 50 MG TAB PO SCH ×2 (08:06→20:26)
[2021-05-24 08:44] LABS: BUN Creatinine Ratio 19.9 (10-20); Calcium 8.5 mg/dl (8.5-10.1); Creatinine Clr Calc Pharmacy 18.6 ml/min; Est GFR (African American) 19.2 ml/min; Est GFR (Non-African American) 16.6 ml/min; Potassium 4.8 mmol/L (3.5-5.1)
--- NOTE | 2021-05-24 09:25 | Nephrology Progress Note ---
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 Baseline creatinine of 2.5. Admission creatinine of 3.8 and plateau'd at about 2.6 for several days; after about 48 hours on higher Lasix dosing weekend of 05/22, creatinine has now increased to 3.3. He does have a bit more symptomatic volume overload today > has been 0.8L negative past 24 hr -Held Lasix midday dose - continued on Lasix 40 mg IV twice daily instead of tid -Held potassium dosing -Monitor input output -Daily BMP -daily standing weight (2) Acute decompensated heart failure: Plan: Patient with a low EF of 25% (33% on lexiscan) and pulmonary hypertension. Longer term cardiology hopes to do NST, consideration of defibrillator <>For OP EP consult mid June, after appropriate medical tx window/optimization -diuretics as above Continue fluid limit 1.5 L daily (in general he takes in less than 1 L); continue less than 2 g daily sodium diet (3) Pain of left heel: Plan: vascular following; for conservative mgt currently; to follow-up with inpatient and outpatient wound care; pt s/p LLE thrombectomy 03/2021 during admission for NSTEMI and w/ BL thoracentesis Admission and Anticipated Discharge Date Admission Date: May 14, 2021 Subjective felt no worse sob but still poorly overall when I saw him at approx 0900. foot not paining him particularly and walking w/ walker a few times daily;c /o poor sleep Review of Systems Review of Systems: All systems reviewed & are unremarkable except as noted in Subjective Physical Exam Constitutional: well developed and well nourished; no acute distress Eyes: EOM intact bilaterally ENMT: Ears: no external ear abnormality Nose: no external nose abnormality Mouth: + dry oral mucous membranes Neck: no nuchal rigidity Respiratory: + labored breathing (slight), able to speak in complete sentences (w/ intermittent pauses to breathe) and + paradoxical thoraco-abdominal movement Auscultation: + diminished lung sounds and + crackles (Bibasilar) life vest in place Cardiovascular: Rate/Rhythm: regular rate and regular rhythm Extremities: no edema Gastrointestinal (Abdomen): Inspection/Auscultation: normal bowel sounds Percussion/Palpation: abdomen soft; abdomen nontender Musculoskeletal: Extremities: strength 5/5 throughout Skin: no rashes, warm and dry Psychiatric: Orientation: oriented x 3 (but tired/ slow to answer (woke him up)) Results & Data ([facility]) Vital Signs (Past 12 Hours) Vital Signs Temp Pulse Pulse Resp BP BP Pulse Ox 05/24/21 07:47 36.3 C L 68 16 92/57 L 100 05/24/21 07:13 58 L 05/24/21 03:04 36.5 C 63 21 97/54 L 97 05/23/21 23:21 36.5 C 65 18 110/66 96 05/23/21 22:00 67 Laboratory Results 05/24/21 07:16 05/24/21 07:16
--- NOTE | 2021-05-24 10:27 | Cardiology Progress Note ---
Date of Service May 24, 2021 Assessment & Plan (1) Acute on chronic HFrEF (heart failure with reduced ejection fraction): (2) Ischemic cardiomyopathy: (3) Atrial fibrillation: (4) UTI (urinary tract infection): Plan: Lexiscan nuclear stress test demonstrates myocardial scar without superimposed ischemia. No benefit to cardiac cath at this time. Creatinine increased this morning. Reduce furosemide today. It appears this was already done by nephrology team. Monitor daily weight, fluid balance, GFR, and electrolytes. Inpatient/outpatient wound care clinic for left heel pressure ulcer. Vascular surgery input appreciated. Outpatient electrophysiology consultation consideration for SURVEYOR HELPER capable ICD after 3 months of evidence-based medical therapy (approximately 06/26/2021). Will arrange on discharge. Discharge planning - consider inpatient vs outpatient rehab? Case discussed with Dr. White. Admission and Anticipated Discharge Date Admission Date: May 14, 2021 Supervising Physician Co-Signing Physician Notes Patient seen and examined at the bedside. Feeling better today. Denies chest pain or shortness of breath. Telemetry reveals sinus rhythm. No recurrent atrial fibrillation. No orthopnea or PND. Remains weak. Fluid balance -405 cc. Creatinine trending upward. PE: VSS with borderline resting hypotension. GEN: NAD, AAOx3. Heart: Regular rhythm, normal S1-S2. No murmur. Lungs: Diminished breath sounds at the bases bilateral. No rales, rhonchi, wheeze. Extremities: No edema. A/P: Agree with above PA-C history, physical exam, assessment and plan. Reduce diuretic therapy due to elevated creatinine today. Nephrology input appreciated. Outpatient electrophysiology consultation for ICD/SURVEYOR HELPER. Subjective Patient resting in bed comfortably. Notes frequent urination again overnight. SOB stable. No dizziness. No chest pain. Edema improved from admission. Left heel pain "about the same". No orthopnea. Cough improved. Mild bump in creatinine noted this morning. Review of Systems Review of Systems: All systems reviewed & are unremarkable except as noted in HPI & below Physical Exam Constitutional: + ill appearing; no acute distress Respiratory: normal respiratory effort; no respiratory distress, no labored breathing and no retractions Auscultation: + diminished lung sounds (Bases bilateral) and + rales (Bases bilateral); no crackles, no rhonchi and no wheezes Cardiovascular: Rate/Rhythm: regular rate and regular rhythm Heart Sounds: normal S1 and normal S2; no murmur Vessels: no JVD and no carotid bruit Extremities: no edema Gastrointestinal (Abdomen): normal bowel sounds, soft, nontender, no hepatosplenomegaly Inspection/Auscultation: abdomen normal to inspection and normal bowel sounds; abdomen not distended Percussion/Palpation: abdomen soft; abdomen nontender, no guarding and abdomen not rigid Neurologic: PERRL, EOMI, accommodation nl, no face palsy, no dysarthria CN's II-XI intact bilaterally and moves all extremities; no focal motor deficits Motor/Sensory: no tremor Results & Data ([facility]) Vital Signs (Past 12 Hours) Vital Signs Temp Pulse Pulse Resp BP BP Pulse Ox 05/24/21 07:47 36.3 C L 68 16 92/57 L 100 05/24/21 07:13 58 L 05/24/21 03:04 36.5 C 63 21 97/54 L 97 05/23/21 23:21 36.5 C 65 18 110/66 96 Laboratory Results 05/24/21 05/24/21 Range/Units 07:16 07:16 WBC 10.88 H (4.8-10.8) K/uL RBC 2.13 L (4.7-6.1) M/uL Hgb 8.1 L (14.0-18.0) g/dL Hct 25.1 L (42-52) % MCV 117.8 H (80-100) fL MCH 38.0 H (25-34) pg MCHC 32.3 (32-36) g/dL RDW Std Deviation 96.8 H (36.4-46.3) fL RDW Coeff of Geovanni 22.9 H (11.5-14.5) % Plt Count 320 (130-400) K/uL MPV 10.2 (7.4-10.4) fL Sodium 137 (136-145) mmol/L Potassium 4.8 D (3.5-5.1) mmol/L Chloride 103 (98-107) mmol/L Carbon Dioxide 24 (21-32) mmol/L Anion Gap 10.0 (3-11) BUN 66 H (7-18) mg/dl Creatinine 3.32 H D (0.6-1.4) mg/dl Est Cr Clr Drug Dosing 18.6 ml/min Est GFR ( Amer) 19.2 ml/min Est GFR (Non-Af Amer) 16.6 ml/min BUN/Creatinine Ratio 19.9 (10-20) Glucose 99 (70-99) mg/dl Calcium 8.5 (8.5-10.1) mg/dl Diagnostic Findings Telemetry reviewed - NSR with occ PVC's. Medications Administered Current Inpatient Medications Acetaminophen (Acetaminophen 325 Mg Tab) 650 mg PO Q4H PRN PRN Reason: Pain or Fever Stop: 06/13/21 23:10 Last Admin: 05/17/21 01:04 Dose: 650 mg Documented by: Amiodarone HCl (Amiodarone 200 Mg Tab) 200 mg PO DAILY [facility] Stop: 06/14/21 08:59 Last Admin: 05/24/21 08:05 Dose: 200 mg Documented by: Aspirin (Aspirin 81 Mg Ectab) 81 mg PO QAM [facility] Stop: 06/14/21 08:59 Last Admin: 05/24/21 08:06 Dose: 81 mg Documented by: Atorvastatin Calcium (Atorvastatin 40 Mg Tab) 40 mg PO QAM [facility] Stop: 06/20/21 08:59 Last Admin: 05/24/21 08:05 Dose: 40 mg Documented by: Azelastine HCl (Azelastine Hcl 0.1% Nasal 200 Sprays/27,400 Mcg Btl) 2 sprays NA BID [facility] Stop: 06/13/21 23:44 Last Admin: 05/24/21 08:04 Dose: 2 sprays Documented by: Cyanocobalamin (Cyanocobalamin 500 Mcg Tablet (Vitamin B-12)) 1,000 mcg PO DAILY [facility] Stop: 06/14/21 08:59 Last Admin: 05/24/21 08:05 Dose: 1,000 mcg Documented by: Fluticasone Propionate (Fluticasone Propionate Na Spr 16 Gm Btl) 1 sprays NA DAILY [facility] Stop: 06/14/21 08:59 Last Admin: 05/24/21 08:06 Dose: 1 sprays Documented by: Furosemide (Furosemide 40 Mg/4 Ml Vial) 40 mg IV BID17 [facility] Stop: 06/23/21 16:59 Ceftriaxone Sodium 2,000 mg/ (Dextrose) 70 mls @ 140 mls/hr IV Q24H [facility]; Protocol Stop: 05/25/21 12:59 Last Infusion: 05/23/21 12:39 Dose: Infused Documented by: Levothyroxine Sodium (Levothyroxine Sodium 75 Mcg Tablet) 75 mcg PO DAILYBB [facility] Stop: 06/14/21 06:29 Last Admin: 05/24/21 06:05 Dose: 75 mcg Documented by: Lorazepam (Lorazepam 0.5 Mg Tab) 0.5 mg PO HS PRN PRN Reason: Insomnia Stop: 06/16/21 03:00 Last Admin: 05/17/21 21:04 Dose: 0.5 mg Documented by: Melatonin (Melatonin 3 Mg Tab) 3 mg PO HS PRN PRN Reason: Sleep Stop: 06/14/21 00:39 Last Admin: 05/16/21 20:46 Dose: 3 mg Documented by: Metoprolol Succinate (Metoprolol Succ 25mg Ext Rel Tab) 25 mg PO PM [facility] Stop: 06/14/21 20:59 Last Admin: 05/23/21 21:04 Dose: 25 mg Documented by: Nitroglycerin (Nitroglycerin Sl 0.4 Mg/Tab Tab) 0.4 mg SL UD PRN PRN Reason: Chest Pain Stop: 06/13/21 23:10 Polyethylene Glycol (Polyethylene (Miralax) 17 Gm Pack) 17 gm PO DAILY PRN PRN Reason: Constipation Stop: 06/15/21 20:48 Last Admin: 05/23/21 08:25 Dose: 17 gm Documented by: Pyridoxine HCl (Pyridoxine Hcl 50 Mg Tab) 100 mg PO BID [facility] Stop: 06/13/21 23:44 Last Admin: 05/24/21 08:06 Dose: 100 mg Documented by: Senna/Docusate Sodium (Docusate Sodium/Senna 50/8.6mg Tab) 1 tab PO HS [facility] Stop: 06/16/21 20:59 Last Admin: 05/23/21 21:04 Dose: 1 tab Documented by: Triamcinolone Acetonide (Triamcinolone Acet 0.1% Oint 15 Gm Tube) 1 appln TOP HS PRN PRN Reason: Rash Stop: 06/13/21 23:10 Vitamin D (Cholecalciferol 1,000 Units 25 Mcg Tab) 1,000 units PO DAILY [facility] Stop: 06/14/21 08:59 Last Admin: 05/24/21 08:05 Dose: 1,000 units Documented by: Warfarin Sodium (Warfarin Sod 2 Mg Tab) 2 mg PO DAILY@1600 [facility] Stop: 06/16/21 15:59 Last Admin: 05/23/21 17:08 Dose: 2 mg Documented by:
[2021-05-24] MEDS: cefUROXime axetil 250 MG TABLET PO SCH (12:33)
--- NOTE | 2021-05-24 15:13 | Hospitalist Progress Note ---
Date of Service May 24, 2021 Assessment & Plan (1) Acute on chronic HFrEF (heart failure with reduced ejection fraction): Plan: Has underlying ischemic cardiomyopathy with an EF 25% and is wearing a life vest which was given to him on hospital discharge 03/20/21. IV diuretics held with worsening creatinine. Continue Toprol XL and aspirin. RYLEE/ARB contraindicated in renal disease. Atorvastatin initially held in LFT elevation 2/2 congestive hepatopathy but this has been restarted. Defer diuretic titration to Cardiology and Nephrology teams (2) Acute kidney injury superimposed on chronic kidney disease: Plan: Recent increased diuretic use as outpatient prior to hospitalization. Possible etiology also cardiorenal syndrome per nephro. Baseline creat 2.5. Creatinine improved with diuretic therapy but today has declined. Intravenous Lasix held. Repeat BMP in am. OK to discharge once cleared by nephro and cards teams. (3) Ischemic cardiomyopathy: Plan: Recent Lexiscan nuclear stress test this admission demonstrates myocardial scar without superimposed ischemia. No benefit to cardiac cath at this time per cards. (4) Ventricular tachycardia: Plan: maintains life vest. After foot and urine infections are cleared up, plan will be for outpatient EP consultation for consideration of TELEMARKETER SUPERVISOR capable ICD. Cardiology team to arrange at discharge. (5) Atrial fibrillation: Plan: Continue amiodarone, Toprol-XL. warfarin (6) Pain of left heel: Plan: Recent thrombectomy of his left lower extremity in Mar 2021 after an NSTEMI and bilateral thoracentesis. He is subsequently developed purplish rash on his left heel that is painful and appears embolic in nature. There is also a small wound in the same area. Wound care for left heel sore (7) Aortic stenosis: (8) Elevated transaminase level: Plan: Likely secondary to congestive hepatopathy, right upper quadrant ultrasound is within normal limits. This is improved and atorvastatin was restarted. (9) Anemia in CKD (chronic kidney disease): Plan: Continues on Procrit as outpatient. Hb is 8.3 today (10) DVT prophylaxis: Plan: Therapeutic INR, on warfarin. Monitor INR Full code Disposition-continue PCU stay pending cardiology clearance Sowmya Bishop DO [facility] Hospitalist Admission and Anticipated Discharge Date Admission Date: May 14, 2021 Subjective 81 yo M admitted for acute systolic heart failure denies SOB or chest pain feels sad that his kidney function has declined on the bloodwork. some foot pain today that is mild Review of Systems 2 Review of Systems: All systems reviewed and negative except as indicated above. Physical Exam Physical Exam: CONSTITUTIONAL: WNWD, vitals as above, generally well- appearing, NAD EYES: normal conjunctivae, no scleral icterus ENT: external ear and nose normal, oropharynx clear NECK: trachea midline RESPIRATORY: clear to auscultation throughout, no rales or wheezes, normal respiratory effort CARDIOVASCULAR: regular rate and rhythm, S1 and 2 heard without murmurs, gallops or rubs, no JVD, no peripheral edema CHEST: inspection of chest was normal GASTROINTESTINAL: soft, nontender, ND, no guarding MUSCULOSKELETAL: moves all extremities equally, however, generally weak. Head is normocephalic and atraumatic SKIN: warm and dry, wound is healing with almost complete resolution of purplish area, slightly open, covered wtih Optifoam which was changed NEUROLOGIC: CN 2-12 grossly intact, no sensory deficit, normal cognition, normal speech, no tremor, no gross focal deficit, however, gait was not assessed. PSYCHIATRIC: alert cooperative and oriented to person, place and time. Results & Data Results & Data ([facility]) Vital Signs (Past 12 Hours) Vital Signs Temp Pulse Pulse Resp BP Pulse Ox 05/24/21 14:21 36.2 C L 64 16 104/65 97 05/24/21 11:53 36.3 C L 05/24/21 10:48 35.7 C L 63 16 95/59 L 100 05/24/21 07:47 36.3 C L 68 16 92/57 L 100 05/24/21 07:13 58 L Laboratory Results Short CBC 05/24/21 Range/Units 07:16 WBC 10.88 H (4.8-10.8) K/uL Hgb 8.1 L (14.0-18.0) g/dL Hct 25.1 L (42-52) % Plt Count 320 (130-400) K/uL BMP 05/24/21 07:16 Sodium 137 Potassium 4.8 D Chloride 103 Carbon Dioxide 24 BUN 66 H Creatinine 3.32 H D Glucose 99 Calcium 8.5 Medications Administered Current Inpatient Medications Acetaminophen (Acetaminophen 325 Mg Tab) 650 mg PO Q4H PRN PRN Reason: Pain or Fever Stop: 06/13/21 23:10 Last Admin: 05/17/21 01:04 Dose: 650 mg Documented by: Amiodarone HCl (Amiodarone 200 Mg Tab) 200 mg PO DAILY [facility] Stop: 06/14/21 08:59 Last Admin: 05/24/21 08:05 Dose: 200 mg Documented by: Aspirin (Aspirin 81 Mg Ectab) 81 mg PO QAM [facility] Stop: 06/14/21 08:59 Last Admin: 05/24/21 08:06 Dose: 81 mg Documented by: Atorvastatin Calcium (Atorvastatin 40 Mg Tab) 40 mg PO QAM [facility] Stop: 06/20/21 08:59 Last Admin: 05/24/21 08:05 Dose: 40 mg Documented by: Azelastine HCl (Azelastine Hcl 0.1% Nasal 200 Sprays/27,400 Mcg Btl) 2 sprays NA BID [facility] Stop: 06/13/21 23:44 Last Admin: 05/24/21 08:04 Dose: 2 sprays Documented by: Cefuroxime Axetil (Cefuroxime Axetil 250 Mg Tablet) 250 mg PO DAILY [facility]; Protocol Stop: 06/03/21 11:59 Last Admin: 05/24/21 12:33 Dose: 250 mg Documented by: Cyanocobalamin (Cyanocobalamin 500 Mcg Tablet (Vitamin B-12)) 1,000 mcg PO DAILY [facility] Stop: 06/14/21 08:59 Last Admin: 05/24/21 08:05 Dose: 1,000 mcg Documented by: Fluticasone Propionate (Fluticasone Propionate Na Spr 16 Gm Btl) 1 sprays NA DAILY [facility] Stop: 06/14/21 08:59 Last Admin: 05/24/21 08:06 Dose: 1 sprays Documented by: Furosemide (Furosemide 40 Mg/4 Ml Vial) 40 mg IV BID17 [facility] Stop: 06/23/21 16:59 Levothyroxine Sodium (Levothyroxine Sodium 75 Mcg Tablet) 75 mcg PO DAILYBB [facility] Stop: 06/14/21 06:29 Last Admin: 05/24/21 06:05 Dose: 75 mcg Documented by: Lorazepam (Lorazepam 0.5 Mg Tab) 0.5 mg PO HS PRN PRN Reason: Insomnia Stop: 06/16/21 03:00 Last Admin: 05/17/21 21:04 Dose: 0.5 mg Documented by: Melatonin (Melatonin 3 Mg Tab) 3 mg PO HS PRN PRN Reason: Sleep Stop: 06/14/21 00:39 Last Admin: 05/16/21 20:46 Dose: 3 mg Documented by: Metoprolol Succinate (Metoprolol Succ 25mg Ext Rel Tab) 25 mg PO PM [facility] Stop: 06/14/21 20:59 Last Admin: 05/23/21 21:04 Dose: 25 mg Documented by: Nitroglycerin (Nitroglycerin Sl 0.4 Mg/Tab Tab) 0.4 mg SL UD PRN PRN Reason: Chest Pain Stop: 06/13/21 23:10 Polyethylene Glycol (Polyethylene (Miralax) 17 Gm Pack) 17 gm PO DAILY PRN PRN Reason: Constipation Stop: 06/15/21 20:48 Last Admin: 05/23/21 08:25 Dose: 17 gm Documented by: Pyridoxine HCl (Pyridoxine Hcl 50 Mg Tab) 100 mg PO BID [facility] Stop: 06/13/21 23:44 Last Admin: 05/24/21 08:06 Dose: 100 mg Documented by: Senna/Docusate Sodium (Docusate Sodium/Senna 50/8.6mg Tab) 1 tab PO HS [facility] Stop: 06/16/21 20:59 Last Admin: 05/23/21 21:04 Dose: 1 tab Documented by: Triamcinolone Acetonide (Triamcinolone Acet 0.1% Oint 15 Gm Tube) 1 appln TOP HS PRN PRN Reason: Rash Stop: 06/13/21 23:10 Vitamin D (Cholecalciferol 1,000 Units 25 Mcg Tab) 1,000 units PO DAILY [facility] Stop: 06/14/21 08:59 Last Admin: 05/24/21 08:05 Dose: 1,000 units Documented by: Warfarin Sodium (Warfarin Sod 2 Mg Tab) 2 mg PO DAILY@1600 [facility] Stop: 06/16/21 15:59 Last Admin: 05/23/21 17:08 Dose: 2 mg Documented by:
[2021-05-24] MEDS: WARFARIN SOD 2 MG TAB PO SCH (17:18)
[2021-05-24] MEDS: METOPROLOL SUCC 25MG EXT REL TAB PO SCH (20:25)
[2021-05-24] MEDS: DOCUSATE SODIUM/SENNA 50/8.6MG TAB PO SCH (20:25)
[2021-05-25] MEDS: LEVOTHYROXINE SODIUM 75 MCG TABLET PO SCH (05:38)
[2021-05-25] MEDS: cefUROXime axetil 250 MG TABLET PO SCH (08:32)
[2021-05-25] MEDS: PYRIDOXINE HCL 50 MG TAB PO SCH ×2 (08:32→19:56)
[2021-05-25] MEDS: CYANOCOBALAMIN 500 MCG TABLET (VITAMIN B-12) PO SCH (08:32)
[2021-05-25] MEDS: CHOLECALCIFEROL 1,000 UNITS 25 MCG TAB PO SCH (08:32)
[2021-05-25] MEDS: ASPIRIN 81 MG ECTAB PO SCH (08:32)
[2021-05-25] MEDS: ATORVASTATIN 40 MG TAB PO SCH (08:32)
[2021-05-25] MEDS: AMIODARONE 200 MG TAB PO SCH (08:32)
[2021-05-25] MEDS: AZELASTINE HCL 0.1% NASAL 200 SPRAYS/27,400 MCG BTL SCH ×2 (08:33→19:56)
[2021-05-25] MEDS: FLUTICASONE PROPIONATE NA SPR 16 GM BTL SCH (08:33)
[2021-05-25 08:56] LABS: Hematocrit (blood only) 25.7 % (42-52); Hemoglobin 8.3 g/dL (14.0-18.0); Mean Corpuscular Hemoglobin 38.1 pg (25-34); Mean Corpuscular Hgb Conc 32.3 g/dL (32-36); Mean Corpuscular Volume 117.9 fL (80-100); Mean Platelet Volume 10.2 fL (7.4-10.4); Platelet Count 383 K/uL (130-400); RDW Standard Deviation 96.7 fL (36.4-46.3); Red Blood Count 2.18 M/uL (4.7-6.1); White Blood Count 11.62 K/uL (4.8-10.8)
[2021-05-25 09:05] LABS: INR 2.5 (0.9-1.1); Prothrombin Time 23.4 Seconds (9.0-12.0)
[2021-05-25 09:33] LABS: BUN Creatinine Ratio 22.9 (10-20); Est GFR (African American) 17.3 ml/min; Est GFR (Non-African American) 14.9 ml/min; Potassium 5.1 mmol/L (3.5-5.1)
[2021-05-25] MEDS: FUROSEMIDE 40 MG/4 ML VIAL IV SCH ×2 (10:01→16:44)
--- NOTE | 2021-05-25 10:35 | Cardiology Progress Note ---
Date of Service May 25, 2021 Assessment & Plan (1) Acute on chronic HFrEF (heart failure with reduced ejection fraction): (2) Ischemic cardiomyopathy: (3) Atrial fibrillation: (4) UTI (urinary tract infection): Plan: Lexiscan nuclear stress test demonstrates myocardial scar without superimposed ischemia. No benefit to cardiac cath at this time. Creatinine increased again this morning. Hold furosemide this afternoon. Already received Morning dose. Appreciate nephrology assistance. Need to consider diuretics on discharge. Previously on torsemide 40 mg BID, but then this was reduced to 40 mg daily due to dizziness but unfortunately his volume status worsened at this time. Monitor daily weight, fluid balance, GFR, and electrolytes. Inpatient/outpatient wound care clinic for left heel pressure ulcer. Vascular surgery input appreciated. 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 Referral placed and appt to be scheduled. Case discussed with Dr. White. Admission and Anticipated Discharge Date Admission Date: May 14, 2021 Supervising Physician Co-Signing Physician Notes Patient seen and examined at the bedside. Creatinine trending upward today. Denies chest pain or shortness of breath. Telemetry reveals sinus rhythm without dysrhythmia. No recurrent atrial fibrillation. Minimally negative fluid balance overnight. Patient offers no new complaints. PE: VSS with borderline resting hypotension. GEN: NAD, AAOx3. Heart: Regular rhythm, normal S1-S2. No murmur. Lungs: Diminished breath sounds at the bases bilateral. No rales, rhonchi, wheeze. Extremities: No edema. A/P: Agree with above PA-C history, physical exam, assessment and plan. Hold Lasix today. Repeat basic metabolic panel in a.m. Likely patient has reached dry weight and will transition to oral diuretic therapy when creatinine stabilizes. Consider torsemide 40 mg twice daily, however, will discuss further with nephrology. 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 Subjective Patient resting comfortably in bed. Edema resolved. No orthopnea. Labs pending at time of evaluation. Notes ongoing dyspnea with ambulation to the restroom, but improved from admission. No cough. No chest pain. Foot pain improved today. Review of Systems Review of Systems: All systems reviewed & are unremarkable except as noted in HPI & below Physical Exam Constitutional: + ill appearing; no acute distress Respiratory: normal respiratory effort; no respiratory distress, no labored breathing and no retractions Auscultation: + diminished lung sounds (Bases bilateral); no crackles, no rales (Bases bilateral), no rhonchi and no wheezes Cardiovascular: Rate/Rhythm: regular rate and regular rhythm Heart Sounds: normal S1 and normal S2; no murmur Vessels: no JVD and no carotid bruit Extremities: no edema Gastrointestinal (Abdomen): normal bowel sounds, soft, nontender, no hepatosplenomegaly Inspection/Auscultation: abdomen normal to inspection and normal bowel sounds; abdomen not distended Percussion/Palpation: abdomen soft; abdomen nontender, no guarding and abdomen not rigid Neurologic: PERRL, EOMI, accommodation nl, no face palsy, no dysarthria CN's II-XI intact bilaterally and moves all extremities; no focal motor deficits Motor/Sensory: no tremor Results & Data ([facility]) Vital Signs (Past 12 Hours) Vital Signs Temp Pulse Pulse Resp BP BP Pulse Ox 05/25/21 07:59 36.8 C 118 H 20 124/68 95 05/25/21 07:37 63 05/25/21 03:20 36.3 C L 64 19 107/69 94 05/25/21 00:21 36.3 C L 60 16 102/57 L 100 Laboratory Results 05/25/21 05/25/21 05/25/21 Range/Units 08:41 08:33 08:33 WBC 11.62 H (4.8-10.8) K/uL RBC 2.18 L (4.7-6.1) M/uL Hgb 8.3 L (14.0-18.0) g/dL Hct 25.7 L (42-52) % MCV 117.9 H (80-100) fL MCH 38.1 H (25-34) pg MCHC 32.3 (32-36) g/dL RDW Std Deviation 96.7 H (36.4-46.3) fL RDW Coeff of Geovanni 23.0 H (11.5-14.5) % Plt Count 383 (130-400) K/uL MPV 10.2 (7.4-10.4) fL PT 23.4 H (9.0-12.0) Seconds INR 2.5 H (0.9-1.1) Sodium 134 L (136-145) mmol/L Potassium 5.1 (3.5-5.1) mmol/L Chloride 102 (98-107) mmol/L Carbon Dioxide 20 L (21-32) mmol/L Anion Gap 12.0 H (3-11) BUN 83 H (7-18) mg/dl Creatinine 3.63 H D (0.6-1.4) mg/dl Est Cr Clr Drug Dosing 17.0 ml/min Est GFR ( Amer) 17.3 ml/min Est GFR (Non-Af Amer) 14.9 ml/min BUN/Creatinine Ratio 22.9 H (10-20) Glucose 114 H (70-99) mg/dl Calcium 9.0 (8.5-10.1) mg/dl Diagnostic Findings Telemetry reviewed - NSR with conduction delay. No atrial fibrillation. HR's ranging 55-65 bpm Medications Administered Current Inpatient Medications Acetaminophen (Acetaminophen 325 Mg Tab) 650 mg PO Q4H PRN PRN Reason: Pain or Fever Stop: 06/13/21 23:10 Last Admin: 05/17/21 01:04 Dose: 650 mg Documented by: Amiodarone HCl (Amiodarone 200 Mg Tab) 200 mg PO DAILY [facility] Stop: 06/14/21 08:59 Last Admin: 05/25/21 08:32 Dose: 200 mg Documented by: Aspirin ([facility] 81 Mg [facility]ctab) [facility] Stop: 06/14/21 08:59 Last Admin: 05/25/21 08:32 Dose: 81 mg Documented by: Atorvastatin Calcium (Atorvastatin 40 Mg Tab) 40 mg PO [facility] Stop: 06/20/21 08:59 Last Admin: 05/25/21 08:32 Dose: 40 mg Documented by: Azelastine HCl (Azelastine Hcl 0.1% Nasal 200 Sprays/27,400 Mcg Btl) 2 sprays NA BID [facility] Stop: 06/13/21 23:44 Last Admin: 05/25/21 08:33 Dose: 2 sprays Documented by: Cefuroxime Axetil (Cefuroxime Axetil 250 Mg Tablet) 250 mg PO DAILY [facility]; Protocol Stop: 06/03/21 11:59 Last Admin: 05/25/21 08:32 Dose: 250 mg Documented by: Cyanocobalamin (Cyanocobalamin 500 Mcg Tablet (Vitamin B-12)) 1,000 mcg PO DAILY [facility] Stop: 06/14/21 08:59 Last Admin: 05/25/21 08:32 Dose: 1,000 mcg Documented by: Fluticasone Propionate (Fluticasone Propionate Na Spr 16 Gm Btl) 1 sprays NA DAILY [facility] Stop: 06/14/21 08:59 Last Admin: 05/25/21 08:33 Dose: 1 sprays Documented by: Furosemide (Furosemide 40 Mg/4 Ml Vial) 40 mg IV BID17 [facility] Stop: 06/23/21 16:59 Last Admin: 05/25/21 10:01 Dose: Not Given Documented by: Levothyroxine Sodium (Levothyroxine Sodium 75 Mcg Tablet) 75 mcg PO DAILYBB [facility] Stop: 06/14/21 06:29 Last Admin: 05/25/21 05:38 Dose: 75 mcg Documented by: Lorazepam (Lorazepam 0.5 Mg Tab) 0.5 mg PO HS PRN PRN Reason: Insomnia Stop: 06/16/21 03:00 Last Admin: 05/17/21 21:04 Dose: 0.5 mg Documented by: Melatonin (Melatonin 3 Mg Tab) 3 mg PO HS PRN PRN Reason: Sleep Stop: 06/14/21 00:39 Last Admin: 05/16/21 20:46 Dose: 3 mg Documented by: Metoprolol Succinate (Metoprolol Succ 25mg Ext Rel Tab) 25 mg PO PM [facility] Stop: 06/14/21 20:59 Last Admin: 05/24/21 20:25 Dose: 25 mg Documented by: Nitroglycerin (Nitroglycerin Sl 0.4 Mg/Tab Tab) 0.4 mg SL UD PRN PRN Reason: Chest Pain Stop: 06/13/21 23:10 Polyethylene Glycol (Polyethylene (Miralax) 17 Gm Pack) 17 gm PO DAILY PRN PRN Reason: Constipation Stop: 06/15/21 20:48 Last Admin: 05/23/21 08:25 Dose: 17 gm Documented by: Pyridoxine HCl (Pyridoxine Hcl 50 Mg Tab) 100 mg PO BID [facility] Stop: 06/13/21 23:44 Last Admin: 05/25/21 08:32 Dose: 100 mg Documented by: Senna/Docusate Sodium (Docusate Sodium/Senna 50/8.6mg Tab) 1 tab PO HS [facility] Stop: 06/16/21 20:59 Last Admin: 05/24/21 20:25 Dose: 1 tab Documented by: Triamcinolone Acetonide (Triamcinolone Acet 0.1% Oint 15 Gm Tube) 1 appln TOP HS PRN PRN Reason: Rash Stop: 06/13/21 23:10 Vitamin D (Cholecalciferol 1,000 Units 25 Mcg Tab) 1,000 units PO DAILY [facility] Stop: 06/14/21 08:59 Last Admin: 05/25/21 08:32 Dose: 1,000 units Documented by: Warfarin Sodium (Warfarin Sod 2 Mg Tab) 2 mg PO DAILY@1600 [facility] Stop: 06/16/21 15:59 Last Admin: 05/24/21 17:18 Dose: 2 mg Documented by:
--- NOTE | 2021-05-25 11:45 | Nephrology Progress Note ---
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 Baseline creatinine of 2.5. Admission creatinine of 3.8 and plateau'd at about 2.6 for several days; after about 48 hours on higher Lasix dosing weekend of 05/22, creatinine has now increased to 3.3 then 3.6. He does have a bit more symptomatic volume overload today > I/O incomplete -yesterday we lowered lasix from 40 tid IV to 40 bid IV; held am lasix dose today as well >>>>will give 1600 lasix dose 40 mg, sooner as indicated; more lasix ok if cardiology deems necessary ->>rate control per cardiology -cancelled potassium dosing -Monitor input output -Daily BMP -daily standing weight (2) Acute decompensated heart failure: Plan: Patient with a low EF of 25% (33% on lexiscan) and pulmonary hypertension. Longer term for OP EP consult mid June, after appropriate medical tx window/optimization -diuretics limited as above Continue fluid limit 1.5 L daily (in general he takes in less than 1 L); continue less than 2 g daily sodium diet (3) Pain of left heel: Plan: vascular following; for conservative mgt currently; to follow-up with inpatient and outpatient wound care; pt s/p LLE thrombectomy 03/2021 during admission for NSTEMI and w/ BL thoracentesis Admission and Anticipated Discharge Date Admission Date: May 14, 2021 Subjective pt seen at about 0800; labs pending at that time and exertional dyspnea unchanged. feels discouraged and "lousy" b/c can hardly move w/o sx Review of Systems Review of Systems: All systems reviewed & are unremarkable except as noted in Subjective Physical Exam Constitutional: well developed and well nourished; no acute distress Eyes: EOM intact bilaterally ENMT: Ears: no external ear abnormality Nose: no external nose abnormality Mouth: + dry oral mucous membranes Neck: no nuchal rigidity Respiratory: + labored breathing (slight), able to speak in complete sentences (w/ intermittent pauses to breathe) and + paradoxical thoraco-abdominal movement Auscultation: + diminished lung sounds and + crackles (Bibasilar) Cardiovascular: Rate/Rhythm: regular rate and regular rhythm Extremities: no edema Gastrointestinal (Abdomen): Inspection/Auscultation: normal bowel sounds Percussion/Palpation: abdomen soft; abdomen nontender Musculoskeletal: Extremities: strength 5/5 throughout Skin: no rashes, warm and dry Psychiatric: Orientation: alert and oriented x 3 Genitourinary: no del rosario Results & Data ([facility]) Vital Signs (Past 12 Hours) Vital Signs Temp Pulse Pulse Resp BP BP Pulse Ox 05/25/21 07:59 36.8 C 118 H 20 124/68 95 05/25/21 07:37 63 05/25/21 03:20 36.3 C L 64 19 107/69 94 05/25/21 00:21 36.3 C L 60 16 102/57 L 100 Laboratory Results 05/25/21 08:33 05/25/21 08:33
--- NOTE | 2021-05-25 14:30 | Hospitalist Progress Note ---
Date of Service May 25, 2021 Assessment & Plan (1) Acute on chronic HFrEF (heart failure with reduced ejection fraction): Plan: Has underlying ischemic cardiomyopathy with an EF 25% and is wearing a life vest which was given to him on hospital discharge 03/20/21. IV diuretics resumed this afternoon per nephrology with continued dyspnea on exertion. Continue Toprol XL and aspirin. RYLEE/ARB contraindicated in renal disease. Atorvastatin initially held in LFT elevation 2/2 congestive hepatopathy but this has been restarted. Defer diuretic titration to Cardiology and Nephrology teams (2) Acute kidney injury superimposed on chronic kidney disease: Plan: Recent increased diuretic use as outpatient prior to hospitalization. Possible etiology also cardiorenal syndrome per nephro. Baseline creat 2.5. Creatinine improved with diuretic therapy but continues to decline today and is now 3.6. Resume IV lasix per nephrology in setting of dyspnea symptoms. (3) Ischemic cardiomyopathy: Plan: Recent Lexiscan nuclear stress test this admission demonstrates myocardial scar without superimposed ischemia. No benefit to cardiac cath at this time per cards. (4) Ventricular tachycardia: Plan: maintains life vest. After foot and urine infections are cleared up, plan will be for outpatient EP consultation for consideration of [employer] capable ICD. Cardiology team to arrange at discharge. (5) Atrial fibrillation: Plan: Continue amiodarone, Toprol-XL. warfarin (6) Pain of left heel: Plan: Recent thrombectomy of his left lower extremity in Mar 2021 after an NSTEMI and bilateral thoracentesis. He is subsequently developed purplish rash on his left heel that is painful and appears embolic in nature. There is also a small wound in the same area. Wound care for left heel sore (7) Aortic stenosis: (8) Elevated transaminase level: Plan: Likely secondary to congestive hepatopathy, right upper quadrant ultrasound is within normal limits. This is improved and atorvastatin was restarted. (9) Anemia in CKD (chronic kidney disease): Plan: Continues on Procrit as outpatient. Hb is 8.3 today (10) DVT prophylaxis: Plan: Therapeutic INR, on warfarin. Monitor INR Full code Disposition-continue PCU stay pending cardiology clearance [facility] Admission and Anticipated Discharge Date Admission Date: May 14, 2021 Subjective 81 yo M admitted for acute systolic heart failure reports dyspnea on exertion foot is improving discussed creatinine levels tolerating PO Review of Systems Review of Systems: All systems reviewed and negative except as indicated above. Physical Exam Physical Exam: CONSTITUTIONAL: WNWD, vitals as above, generally well- appearing, NAD EYES: normal conjunctivae, no scleral icterus ENT: external ear and nose normal, oropharynx clear NECK: trachea midline RESPIRATORY: clear to auscultation throughout, no rales or wheezes, normal respiratory effort CARDIOVASCULAR: regular rate and rhythm, S1 and 2 heard without murmurs, ga llops or rubs, no JVD, no peripheral edema CHEST: inspection of chest was normal GASTROINTESTINAL: soft, nontender, ND, no guarding MUSCULOSKELETAL: moves all extremities equally, however, generally weak. Head is normocephalic and atraumatic SKIN: warm and dry, wound is healing closed, covered wtih Optifoam which was changed NEUROLOGIC: CN 2-12 grossly intact, no sensory deficit, normal cognition, normal speech, no tremor, no gross focal deficit, however, gait was not assessed. PSYCHIATRIC: alert cooperative and oriented to person, place and time. Results & Data Results & Data ([facility]) Vital Signs (Past 12 Hours) Vital Signs Temp Pulse Pulse Resp BP BP Pulse Ox 05/25/21 07:59 36.8 C 118 H 20 124/68 95 05/25/21 07:37 63 05/25/21 03:20 36.3 C L 64 19 107/69 94 Laboratory Results Short CBC 05/25/21 Range/Units 08:33 WBC 11.62 H (4.8-10.8) K/uL Hgb 8.3 L (14.0-18.0) g/dL Hct 25.7 L (42-52) % Plt Count 383 (130-400) K/uL BMP 05/25/21 08:33 Sodium 134 L Potassium 5.1 Chloride 102 Carbon Dioxide 20 L BUN 83 H Creatinine 3.63 H D Glucose 114 H Calcium 9.0 Medications Administered Current Inpatient Medications Acetaminophen (Acetaminophen 325 Mg Tab) 650 mg PO Q4H PRN PRN Reason: Pain or Fever Stop: 06/13/21 23:10 Last Admin: 05/17/21 01:04 Dose: 650 mg Documented by: Amiodarone HCl (Amiodarone 200 Mg Tab) 200 mg PO DAILY ABAD Stop: 06/14/21 08:59 Last Admin: 05/25/21 08:32 Dose: 200 mg Documented by: Aspirin (Aspirin 81 Mg Ectab) 81 mg PO QAM [facility] Stop: 06/14/21 08:59 Last Admin: 05/25/21 08:32 Dose: 81 mg Documented by: Atorvastatin Calcium (Atorvastatin 40 Mg Tab) 40 mg PO QAM [facility] Stop: 06/20/21 08:59 Last Admin: 05/25/21 08:32 Dose: 40 mg Documented by: Azelastine HCl (Azelastine Hcl 0.1% Nasal 200 Sprays/27,400 Mcg Btl) 2 sprays NA BID [facility] Stop: 06/13/21 23:44 Last Admin: 05/25/21 08:33 Dose: 2 sprays Documented by: Cefuroxime Axetil (Cefuroxime Axetil 250 Mg Tablet) 250 mg PO DAILY [facility]; Protocol Stop: 06/03/21 11:59 Last Admin: 05/25/21 08:32 Dose: 250 mg Documented by: Cyanocobalamin (Cyanocobalamin 500 Mcg Tablet (Vitamin B-12)) 1,000 mcg PO DAILY [facility] Stop: 06/14/21 08:59 Last Admin: 05/25/21 08:32 Dose: 1,000 mcg Documented by: Fluticasone Propionate (Fluticasone Propionate Na Spr 16 Gm Btl) 1 sprays NA DAILY [facility] Stop: 06/14/21 08:59 Last Admin: 05/25/21 08:33 Dose: 1 sprays Documented by: Furosemide (Furosemide 40 Mg/4 Ml Vial) 40 mg IV BID17 [facility] Stop: 06/23/21 16:59 Last Admin: 05/25/21 10:01 Dose: Not Given Documented by: Levothyroxine Sodium (Levothyroxine Sodium 75 Mcg Tablet) 75 mcg PO DAILYBB [facility] Stop: 06/14/21 06:29 Last Admin: 05/25/21 05:38 Dose: 75 mcg Documented by: Lorazepam (Lorazepam 0.5 Mg Tab) 0.5 mg PO HS PRN PRN Reason: Insomnia Stop: 06/16/21 03:00 Last Admin: 05/17/21 21:04 Dose: 0.5 mg Documented by: Melatonin (Melatonin 3 Mg Tab) 3 mg PO HS PRN PRN Reason: Sleep Stop: 06/14/21 00:39 Last Admin: 05/16/21 20:46 Dose: 3 mg Documented by: Metoprolol Succinate (Metoprolol Succ 25mg Ext Rel Tab) 25 mg PO PM ABAD Stop: 06/14/21 20:59 Last Admin: 05/24/21 20:25 Dose: 25 mg Documented by: Nitroglycerin (Nitroglycerin Sl 0.4 Mg/Tab Tab) 0.4 mg SL UD PRN PRN Reason: Chest Pain Stop: 06/13/21 23:10 Polyethylene Glycol (Polyethylene (Miralax) 17 Gm Pack) 17 gm PO DAILY PRN PRN Reason: Constipation Stop: 06/15/21 20:48 Last Admin: 05/23/21 08:25 Dose: 17 gm Documented by: Pyridoxine HCl (Pyridoxine Hcl 50 Mg Tab) 100 mg PO BID ABAD Stop: 06/13/21 23:44 Last Admin: 05/25/21 08:32 Dose: 100 mg Documented by: Senna/Docusate Sodium (Docusate Sodium/Senna 50/8.6mg Tab) 1 tab PO HS ABAD Stop: 06/16/21 20:59 Last Admin: 05/24/21 20:25 Dose: 1 tab Documented by: Triamcinolone Acetonide (Triamcinolone Acet 0.1% Oint 15 Gm Tube) 1 appln TOP HS PRN PRN Reason: Rash Stop: 06/13/21 23:10 Vitamin D (Cholecalciferol 1,000 Units 25 Mcg Tab) 1,000 units PO DAILY ABAD Stop: 06/14/21 08:59 Last Admin: 05/25/21 08:32 Dose: 1,000 units Documented by: Warfarin Sodium (Warfarin Sod 2 Mg Tab) 2 mg PO DAILY@1600 ABAD Stop: 06/16/21 15:59 Last Admin: 05/24/21 17:18 Dose: 2 mg Documented by:
[2021-05-25] MEDS: WARFARIN SOD 2 MG TAB PO SCH (16:43)
[2021-05-25] MEDS: METOPROLOL SUCC 25MG EXT REL TAB PO SCH (19:56)
[2021-05-25] MEDS: DOCUSATE SODIUM/SENNA 50/8.6MG TAB PO SCH (19:56)
--- NOTE | 2021-05-25 22:22 | Hospitalist Progress Note ---
Date of Service May 21, 2021 (retrospective documentation, pt seen and examined on 05/21) Assessment & Plan (1) Acute on chronic HFrEF (heart failure with reduced ejection fraction): Plan: Has underlying ischemic cardiomyopathy with an EF 25% and is wearing a life vest which was given to him on hospital discharge 03/20/21. IV diuretics per nephrology with continued dyspnea on exertion. Continue Toprol XL and aspirin. RYLEE/ARB contraindicated in renal disease. Atorvastatin initially held in LFT elevation 2/2 congestive hepatopathy but this has been restarted. Defer diuretic titration to Cardiology and Nephrology teams (2) Acute kidney injury superimposed on chronic kidney disease: Plan: Recent increased diuretic use as outpatient prior to hospitalization. Possible etiology also cardiorenal syndrome per nephro. Baseline creat 2.5. Cont IV diuretics per nephrology. (3) Ischemic cardiomyopathy: Plan: presumed per cardiology (4) Ventricular tachycardia: Plan: maintains life vest. After foot and urine infections are cleared up, plan will be for outpatient EP consultation for consideration of [employer] capable ICD. Cardiology team to arrange at discharge. (5) Atrial fibrillation: Plan: Per cardiology, two brief episodes of afib noted 05/19 and . Continue amiodarone, Toprol-XL. warfarin (6) Pain of left heel: Plan: Recent thrombectomy of his left lower extremity in Mar 2021 after an NSTEMI and bilateral thoracentesis. He is subsequently developed a pressure ulcer that was painful on the left heel. Vascular evaluated and no further interventions needed. Cont medical management of peripheral vascular disease. (7) Aortic stenosis: (8) Elevated transaminase level: Plan: Likely secondary to congestive hepatopathy, right upper quadrant ultrasound is within normal limits. This is improved and atorvastatin was restarted. (9) Anemia in CKD (chronic kidney disease): Plan: Continues on Procrit as outpatient. Hb is stable. (10) UTI (urinary tract infection): Plan: Cont Rocephin pending culture results. (11) DVT prophylaxis: Plan: Therapeutic INR, on warfarin. Monitor INR Full code Disposition-continue PCU stay pending cardiology clearance Sowmya Bishop DO [facility] Hospitalist Admission and Anticipated Discharge Date Admission Date: May 14, 2021 Subjective 81 yo M admitted for acute systolic heart failure no changes in symptoms denies SOB/CP Review of Systems Review of Systems: All systems reviewed and negative except as indicated above. Physical Exam Physical Exam: CONSTITUTIONAL: WNWD, vitals as above, generally well- appearing, NAD EYES: normal conjunctivae, no scleral icterus ENT: external ear and nose normal, oropharynx clear NECK: trachea midline RESPIRATORY: clear to auscultation throughout, no rales or wheezes, normal respiratory effort CARDIOVASCULAR: regular rate and rhythm, S1 and 2 heard without murmurs, gallops or rubs, no JVD, no peripheral edema CHEST: inspection of chest was normal GASTROINTESTINAL: soft, nontender, ND, no guarding MUSCULOSKELETAL: moves all extremities equally, however, generally weak. Head is normocephalic and atraumatic SKIN: warm and dry, +wound on L heel, covered wtih Optifoam NEUROLOGIC: CN 2-12 grossly intact, no sensory deficit, normal cognition, normal speech, no tremor, no gross focal deficit, however, gait was not assessed. PSYCHIATRIC: alert cooperative and oriented to person, place and time. Results & Data Results & Data ([facility]) Vital Signs (Past 12 Hours) Vital Signs Temp Pulse Pulse Resp BP Pulse Ox 05/25/21 19:21 36.4 C L 65 16 112/69 100 05/25/21 17:00 36.9 C 140 H 20 125/62 96 05/25/21 15:37 62
[2021-05-26] MEDS: LEVOTHYROXINE SODIUM 75 MCG TABLET PO SCH (05:25)
[2021-05-26 06:31] LABS: Hematocrit (blood only) 24.5 % (42-52); Hemoglobin 8.2 g/dL (14.0-18.0); Mean Corpuscular Hemoglobin 39.6 pg (25-34); Mean Corpuscular Hgb Conc 33.5 g/dL (32-36); Mean Corpuscular Volume 118.4 fL (80-100); Mean Platelet Volume 10.4 fL (7.4-10.4); Platelet Count 386 K/uL (130-400); RDW Standard Deviation 96.6 fL (36.4-46.3); Red Blood Count 2.07 M/uL (4.7-6.1); White Blood Count 10.82 K/uL (4.8-10.8)
[2021-05-26 06:38] LABS: INR 2.9 (0.9-1.1); Prothrombin Time 27.2 Seconds (9.0-12.0)
[2021-05-26 07:06] LABS: BUN Creatinine Ratio 24.4 (10-20); Calcium 9.1 mg/dl (8.5-10.1); Creatinine Clr Calc Pharmacy 17.3 ml/min; Est GFR (African American) 17.4 ml/min; Potassium 5.5 mmol/L (3.5-5.1)
[2021-05-26 07:26] LABS: Magnesium 2.9 mg/dl (1.8-2.4)
[2021-05-26] MEDS: PYRIDOXINE HCL 50 MG TAB PO SCH ×2 (08:23→19:48)
[2021-05-26] MEDS: CHOLECALCIFEROL 1,000 UNITS 25 MCG TAB PO SCH (08:23)
[2021-05-26] MEDS: ATORVASTATIN 40 MG TAB PO SCH (08:23)
[2021-05-26] MEDS: AMIODARONE 200 MG TAB PO SCH (08:23)
[2021-05-26] MEDS: CYANOCOBALAMIN 500 MCG TABLET (VITAMIN B-12) PO SCH (08:23)
[2021-05-26] MEDS: cefUROXime axetil 250 MG TABLET PO SCH (08:23)
[2021-05-26] MEDS: ASPIRIN 81 MG ECTAB PO SCH (08:23)
[2021-05-26] MEDS: AZELASTINE HCL 0.1% NASAL 200 SPRAYS/27,400 MCG BTL SCH ×2 (08:25→19:46)
[2021-05-26] MEDS: FLUTICASONE PROPIONATE NA SPR 16 GM BTL SCH (08:25)
--- NOTE | 2021-05-26 09:50 | Nephrology Progress Note ---
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 Baseline creatinine of 2.5. Admission creatinine of 3.8 and plateau'd at about 2.6 for several days; after about 48 hours on higher Lasix dosing weekend of 05/22, creatinine has now increased to 3.3 then plateau'd at 3.6. He does have a bit more symptomatic volume overload today > I/O incomplete -first lasix was lowered; then from 40 tid IV to 40 bid IV; lasix held after PM dose 05/24 >as per CXR today his fluid status is worsening; may need dialysis -cancelled potassium dosing yesterday -started him on POTASSIUM binder which with one lasix dose today should help -ordered dialysis diet -Monitor input output -Daily BMP -daily standing weight (2) Acute decompensated heart failure: Plan: Patient with a low EF of 25% (33% on lexiscan) and pulmonary hypertension. Longer term for OP EP consult mid June, after appropriate medical tx window/optimization -diuretics limited as above Continue fluid limit 1.5 L daily (in general he takes in less than 1 L); continue less than 2 g daily sodium diet -care coordinated with Dr White (3) Pain of left heel: Plan: vascular following; for conservative mgt currently; to follow-up with inpatient and outpatient wound care; pt s/p LLE thrombectomy 03/2021 during admission for NSTEMI and w/ BL thoracentesis (4) Goals of care, counseling/discussion: Plan: spoke w/ pt and his son today by phone for > 30 min; risks/benefits/indications for / alternatives to dialysis reviewed; not sure he will need dialysis but need could arise next 24-48 hrs. w/ his severe ICMO, not clear to me how well he would tolerate HD but will continue to discuss as needed. pt /son not sure whether he would do dialysis but grateful to have information for consideration. (5) Anemia due to chronic disease treated with erythropoietin: Plan: will redose procrit 20K units today and update iron stores in am Admission and Anticipated Discharge Date Admission Date: May 14, 2021 Subjective had extra dose of lasix today; else last lasix dose is PM 05/24; breathing unchanged; no mention of foot pain today. had emesis after midday meal; states he's restless and can't concentrate today Review of Systems Review of Systems: All systems reviewed & are unremarkable except as noted in Subjective Physical Exam Constitutional: well developed and well nourished; no acute distress Eyes: EOM intact bilaterally ENMT: Ears: no external ear abnormality Nose: no external nose abnormality Mouth: + dry oral mucous membranes Neck: no nuchal rigidity Respiratory: + labored breathing (slight), able to speak in complete sentences (w/ intermittent pauses to breathe) and + paradoxical thoraco-abdominal movement Auscultation: + diminished lung sounds and + crackles (Bibasilar) Cardiovascular: Rate/Rhythm: regular rate and regular rhythm Extremities: no edema Gastrointestinal (Abdomen): Inspection/Auscultation: normal bowel sounds Percussion/Palpation: abdomen soft; abdomen nontender Musculoskeletal: abnormal strength > generalized weakness - 1 person assist to sit up; can't slide up in bed on his own Skin: no rashes, warm and dry Psychiatric: Orientation: alert and oriented x 3 Results & Data ([facility]) Vital Signs (Past 12 Hours) Vital Signs Temp Pulse Resp BP BP Pulse Ox 05/26/21 09:15 36.4 C L 69 18 92/56 L 94 05/26/21 03:55 36.4 C L 64 16 104/59 L 97 05/25/21 22:49 36.3 C L 108 H 19 107/69 96 Laboratory Results 05/26/21 05:52 05/26/21 05:52 Diagnostic Findings cxr today 1. Cardiomegaly with mild pulmonary vascular congestion. 2. Layering pleural effusions with bibasilar consolidation. These are likely similar to previous. chest u/s FINDINGS: Real-time grayscale sonography of the pleural spaces is performed to assess pleural effusions. There are right larger than left pleural effusions with associated atelectasis. The right pleural effusion has an estimated volume of 1878 cc and the left pleural effusion has an estimated volume of 642 cc. The se were not marked for bedside thoracentesis. IMPRESSION: Right larger than left pleural effusions as above
--- NOTE | 2021-05-26 10:13 | XRay Report ---
TWO VIEW CHEST CLINICAL HISTORY: Dyspnea. Congestive heart failure. FINDINGS: PA and lateral chest radiographs are compared to study dated 05/21/2021. The heart is enlar ged noting atherosclerotic calcification of the thoracic aorta. Mild pulmonary vascular congestion pe rsists. There are layering pleural effusions with bibasilar consolidation. There is no pneumothorax. The skeletal structures are osteopenic. The bony thorax appears intact. IMPRESSION: 1. Cardiomegaly with mild pulmonary vascular congestion. 2. Layering pleural effusions with bibasilar consolidation. These are likely similar to previous. ACT 112: Negative or not required by law. Electronically signed by: Jameson Melendez M.D. 05/26/2021 10:12 AM
[2021-05-26] MEDS: PATIROMER CALCIUM SORBITEX 8.4 GM PACK PO SCH (10:39)
--- NOTE | 2021-05-26 11:28 | Cardiology Progress Note ---
Date of Service May 26, 2021 Assessment & Plan (1) Acute on chronic HFrEF (heart failure with reduced ejection fraction): (2) Ischemic cardiomyopathy: (3) Atrial fibrillation: (4) UTI (urinary tract infection): Plan: Lexiscan nuclear stress test demonstrates myocardial scar without superimposed ischemia. No benefit to cardiac cath at this time. Creatinine remains high this morning. Diuretics were held yesterday and today. Increased edema noted on exam today.Conversational dyspnea also noted. Give one dose of furosemide 40 mg IV now. Chest xray with persistent vascular congestion, and pleural effusions. Chest US ordered to assess quantity of fluid, possible need for thoracentesis. If significant fluid noted, will hold coumadin to consider thoracentesis. Monitor daily weight, fluid balance, GFR, and electrolytes. Inpatient/outpatient wound care clinic for left heel pressure ulcer. Vascular surgery input appreciated. Outpatient electrophysiology consultation consideration for DELIVERY DIRECTOR capable ICD after 3 months of evidence-based medical therapy (approximately 06/26/2021). Referral placed and appt to be scheduled. Case discussed with Dr. White. Admission and Anticipated Discharge Date Admission Date: May 14, 2021 Supervising Physician Co-Signing Physician Notes Patient seen and examined at the bedside. Creatinine continues to trend upward. Last dose of diuretic was 05/24/2020 1 in the evening. Denies chest pain or shortness of breath. Telemetry reveals sinus rhythm without dysrhythmia. No recurrent atrial fibrillation. Patient offers no new complaints. PE: VSS with borderline resting hypotension. GEN: NAD, AAOx3. Heart: Regular rhythm, normal S1-S2. No murmur. Lungs: Diminished breath sounds at the bases bilateral. No rales, rhonchi, wheeze. Extremities: 1-2+ bilateral ankle edema. A/P: Agree with above PA-C history, physical exam, assessment and plan. Case discussed with nephrology. Renal function continues to worsen despite withholding diuretic therapy and patient showing signs of progressive volume overload. Recommend 40 mg of IV Lasix now. Continue to monitor diuresis. Consider dose of Bumex this afternoon if urine output remains minimal. Repeat basic metabolic panel in a.m. Subjective Patient resting in bed comfortably. Ongoing dyspnea reported. Mild conversational dyspnea noted. Creatinine remains at 3.6 this morning. Denies dizziness. No orthopnea. Mild edema noted this morning. Review of Systems Review of Systems: All systems reviewed & are unremarkable except as noted in HPI & below Physical Exam Constitutional: + ill appearing; no acute distress Respiratory: normal respiratory effort; no respiratory distress, no labored breathing and no retractions Auscultation: + diminished lung sounds (Bases bilateral) and + rales (Bases bilateral); no crackles, no rhonchi and no wheezes Cardiovascular: Rate/Rhythm: regular rate and regular rhythm Heart Sounds: normal S1 and normal S2; no murmur Vessels: no JVD and no carotid bruit Extremities: + edema (1+ pretibial edema on left, trace on right) Gastrointestinal (Abdomen): normal bowel sounds, soft, nontender, no hepatosplenomegaly Inspection/Auscultation: abdomen normal to inspection and normal bowel sounds; abdomen not distended Percussion/Palpation: abdomen soft; abdomen nontender, no guarding and abdomen not rigid Neurologic: PERRL, EOMI, accommodation nl, no face palsy, no dysarthria CN's II-XI intact bilaterally and moves all extremities; no focal motor deficits Motor/Sensory: no tremor Results & Data ([facility]) Vital Signs (Past 12 Hours) Vital Signs Temp Pulse Resp BP BP Pulse Ox 05/26/21 09:15 36.4 C L 69 18 92/56 L 94 05/26/21 03:55 36.4 C L 64 16 104/59 L 97 Laboratory Results 05/26/21 05/26/21 05/26/21 Range/Units 05:52 05:52 05:52 WBC 10.82 H (4.8-10.8) K/uL RBC 2.07 L (4.7-6.1) M/uL Hgb 8.2 L (14.0-18.0) g/dL Hct 24.5 L (42-52) % MCV 118.4 H (80-100) fL MCH 39.6 H (25-34) pg MCHC 33.5 (32-36) g/dL RDW Std Deviation 96.6 H (36.4-46.3) fL RDW Coeff of Geovanni 23.0 H (11.5-14.5) % Plt Count 386 (130-400) K/uL MPV 10.4 (7.4-10.4) fL PT 27.2 H (9.0-12.0) Seconds INR 2.9 H (0.9-1.1) Sodium 134 L (136-145) mmol/L Potassium 5.5 H (3.5-5.1) mmol/L Chloride 102 (98-107) mmol/L Carbon Dioxide 23 (21-32) mmol/L Anion Gap 9.0 (3-11) BUN 88 H (7-18) mg/dl Creatinine 3.61 H (0.6-1.4) mg/dl Est Cr Clr Drug Dosing 17.3 ml/min Est GFR ( Amer) 17.4 ml/min Est GFR (Non-Af Amer) 15.0 ml/min BUN/Creatinine Ratio 24.4 H (10-20) Glucose 98 (70-99) mg/dl Calcium 9.1 (8.5-10.1) mg/dl Magnesium 2.9 H (1.8-2.4) mg/dl Diagnostic Findings Chest xray: Stable findings with pulm vascular congestion; B/L pleural effusions Telemetry reviewed - NSR with conduction delay Medications Administered Current Inpatient Medications Acetaminophen (Acetaminophen 325 Mg Tab) 650 mg PO Q4H PRN PRN Reason: Pain or Fever Stop: 06/13/21 23:10 Last Admin: 05/17/21 01:04 Dose: 650 mg Documented by: Amiodarone HCl (Amiodarone 200 Mg Tab) 200 mg PO DAILY [facility] Stop: 06/14/21 08:59 Last Admin: 05/26/21 08:23 Dose: 200 mg Documented by: Aspirin (Aspirin 81 Mg Ectab) 81 mg PO [facility] Stop: 06/14/21 08:59 Last Admin: 05/26/21 08:23 Dose: 81 mg Documented by: Atorvastatin Calcium (Atorvastatin 40 Mg Tab) 40 mg PO QAM [facility] Stop: 06/20/21 08:59 Last Admin: 05/26/21 08:23 Dose: 40 mg Documented by: Azelastine HCl (Azelastine Hcl 0.1% Nasal 200 Sprays/27,400 Mcg Btl) 2 sprays NA BID [facility] Stop: 06/13/21 23:44 Last Admin: 05/26/21 08:25 Dose: 2 sprays Documented by: Cefuroxime Axetil (Cefuroxime Axetil 250 Mg Tablet) 250 mg PO DAILY [facility]; Protocol Stop: 12/23/21 11:59 Last Admin: 05/26/21 08:23 Dose: 250 mg Documented by: Cyanocobalamin (Cyanocobalamin 500 Mcg Tablet (Vitamin B-12)) 1,000 mcg PO DAILY [facility] Stop: 06/14/21 08:59 Last Admin: 05/26/21 08:23 Dose: 1,000 mcg Documented by: Fluticasone Propionate (Fluticasone Propionate Na Spr 16 Gm Btl) 1 sprays NA DAILY [facility] Stop: 06/14/21 08:59 Last Admin: 05/26/21 08:25 Dose: 1 sprays Documented by: Furosemide (Furosemide 40 Mg/4 Ml Vial) 40 mg IV BID17 [facility] Stop: 06/23/21 16:59 Last Admin: 05/25/21 16:44 Dose: Not Given Documented by: Levothyroxine Sodium (Levothyroxine Sodium 75 Mcg Tablet) 75 mcg PO DAILYBB [facility] Stop: 06/14/21 06:29 Last Admin: 05/26/21 05:25 Dose: 75 mcg Documented by: Lorazepam (Lorazepam 0.5 Mg Tab) 0.5 mg PO HS PRN PRN Reason: Insomnia Stop: 06/16/21 03:00 Last Admin: 05/17/21 21:04 Dose: 0.5 mg Documented by: Melatonin (Melatonin 3 Mg Tab) 3 mg PO HS PRN PRN Reason: Sleep Stop: 06/14/21 00:39 Last Admin: 05/16/21 20:46 Dose: 3 mg Documented by: Metoprolol Succinate (Metoprolol Succ 25mg Ext Rel Tab) 25 mg PO PM [facility] Stop: 06/14/21 20:59 Last Admin: 05/25/21 19:56 Dose: 25 mg Documented by: Nitroglycerin (Nitroglycerin Sl 0.4 Mg/Tab Tab) 0.4 mg SL UD PRN PRN Reason: Chest Pain Stop: 06/13/21 23:10 Patiromer (Patiromer Calcium Sorbitex 8.4 Gm Pack) 8.4 gm PO DAILY [facility] Stop: 06/25/21 09:59 Last Admin: 05/26/21 10:39 Dose: 8.4 gm Documented by: Polyethylene Glycol (Polyethylene (Miralax) 17 Gm Pack) 17 gm PO DAILY PRN PRN Reason: Constipation Stop: 06/15/21 20:48 Last Admin: 05/23/21 08:25 Dose: 17 gm Documented by: Pyridoxine HCl (Pyridoxine Hcl 50 Mg Tab) 100 mg PO BID [facility] Stop: 06/13/21 23:44 Last Admin: 05/26/21 08:23 Dose: 100 mg Documented by: Senna/Docusate Sodium (Docusate Sodium/Senna 50/8.6mg Tab) 1 tab PO HS [facility] Stop: 06/16/21 20:59 Last Admin: 05/25/21 19:56 Dose: 1 tab Documented by: Triamcinolone Acetonide (Triamcinolone Acet 0.1% Oint 15 Gm Tube) 1 appln TOP HS PRN PRN Reason: Rash Stop: 06/13/21 23:10 Vitamin D (Cholecalciferol 1,000 Units 25 Mcg Tab) 1,000 units PO DAILY [facility] Stop: 06/14/21 08:59 Last Admin: 05/26/21 08:23 Dose: 1,000 units Documented by: Warfarin Sodium (Warfarin Sod 2 Mg Tab) 2 mg PO DAILY@1600 [facility] Stop: 06/16/21 15:59 Last Admin: 05/25/21 16:43 Dose: 2 mg Documented by:
[2021-05-26] MEDS ORDERED: FUROSEMIDE 40 MG/4 ML VIAL IV ONE (11:31)
--- NOTE | 2021-05-26 14:41 | Ultrasound Report ---
ULTRASOUND THE PLEURAL SPACES CLINICAL HISTORY: Pleural effusions. COMPARISON STUDY: Chest x-ray dated 05/26/2021. FINDINGS: Real-time grayscale sonography of the pleural spaces is performed to assess pleural effusio ns. There are right larger than left pleural effusions with associated atelectasis. The right pleural effusion has an estimated volume of 1878 cc and the left pleural effusion has an estimated volume o f 642 cc. These were not marked for bedside thoracentesis. IMPRESSION: Right larger than left pleural effusions as above. Electronically signed by: Jameson Melendez M.D. 05/26/2021 2:39 PM
[2021-05-26] MEDS: WARFARIN SOD 2 MG TAB PO SCH (15:29)
[2021-05-26] MEDS ORDERED: EPOETIN ALFA 20,000 UNITS/ML VIAL SQ ONE (15:48)
--- NOTE | 2021-05-26 19:35 | Hospitalist Progress Note ---
Date of Service May 26, 2021 Assessment & Plan (1) Acute on chronic HFrEF (heart failure with reduced ejection fraction): (2) Ischemic cardiomyopathy: (3) Pleural effusion: Plan: (1) Acute on chronic HFrEF (heart failure with reduced ejection fraction): (1) Pleural effusion: R>L, 2/2 to above, will hold warfarin 05/26 for preparation of thoracentesis, INR daily. Has underlying ischemic cardiomyopathy with an EF 25% and is wearing a life vest which was given to him on hospital discharge 03/20/21. IV diuretics per nephrology with continued dyspnea on exertion. FR 1.5 L daily. Strict Is and Os. Continue Toprol XL and aspirin. RYLEE/ARB contraindicated in renal disease. Atorvastatin initially held in LFT elevation 2/2 congestive hepatopathy but this has been restarted. Defer diuretic titration to Cardiology and Nephrology teams (2) Acute kidney injury superimposed on chronic kidney disease: Recent increased diuretic use as outpatient prior to hospitalization. Possible etiology also cardiorenal syndrome per nephro. Baseline creat 2.5. Cont IV diuretics per nephrology. Daily BMP, Cr remains elevated. (3) Ischemic cardiomyopathy: presumed per cardiology (4) Ventricular tachycardia: maintains life vest. After foot and urine infections are cleared up, plan will be for outpatient EP consultation for consideration of INTERNAL CONTROLS SPECIALIST capable ICD. Cardiology team to arrange at discharge. (5) Atrial fibrillation: Per cardiology, two brief episodes of afib noted 05/19 and . Continue amiodarone, Toprol-XL. warfarin held 05/26 for thoracentesis, will follow INR, resume once appropriate. (6) Pain of left heel: Recent thrombectomy of his left lower extremity in Mar 2021 after an NSTEMI and bilateral thoracentesis. He is subsequently developed a pressure ulcer that was painful on the left heel. Vascular evaluated and no further interventions needed. Cont medical management of peripheral vascular disease. (7) Aortic stenosis: (8) Elevated transaminase level: Likely secondary to congestive hepatopathy, right upper quadrant ultrasound is within normal limits. This is improved and atorvastatin was restarted. (9) Anemia in CKD (chronic kidney disease): Continues on Procrit as outpatient. Hb is stable. (10) UTI (urinary tract infection): Cont Rocephin pending culture results. (11) DVT prophylaxis: Therapeutic INR, on warfarin. Monitor INR Full code Disposition-continue PCU stay pending cardiology clearance Admission and Anticipated Discharge Date Admission Date: May 14, 2021 Subjective Patient was sitting up in chair, on room air, NAD, no new acute events overnight. Patient reports eating and moving bowels okay. Patient denies any fever/headache/chills/shortness of breath/chest pain/palpitation/other review of symptoms. Physical Exam Physical Exam: GENERAL: Alert and oriented x3. NAD, on RA. HEENT: No pallor, no icterus. Pupils equal, round and reactive to light. Oral mucosa moist. NECK: No JVD, no neck masses. HEART: S1 and S2 heard. Regular rate and rhythm. Systolic murmur over aortic area, no gallop. RESPIRATORY SYSTEM: Normal AP diameter. No accessory muscle use. No wheezing, b/l crackles. ABDOMEN: Soft, bowel sounds present, nontender, no distention. CENTRAL NERVOUS SYSTEM: No facial droop. Speech is clear. Obeys simple commands. Moves extremities. EXTREMITIES: 2+ BLE edema, no erythema seen. Results & Data Results & Data ([facility]) Vital Signs (Past 12 Hours) Vital Signs Temp Pulse Resp BP BP Pulse Ox 05/26/21 15:36 36.4 C L 66 19 100/67 100 05/26/21 11:41 36.4 C L 67 20 104/47 L 96 05/26/21 09:15 36.4 C L 69 18 92/56 L 94
[2021-05-26] MEDS: METOPROLOL SUCC 25MG EXT REL TAB PO SCH (19:48)
[2021-05-26] MEDS: DOCUSATE SODIUM/SENNA 50/8.6MG TAB PO SCH (19:49)
[2021-05-27] MEDS: LORazepam 0.5 MG TAB PO PRN (00:30)
[2021-05-27] MEDS: LEVOTHYROXINE SODIUM 75 MCG TABLET PO SCH (05:47)
[2021-05-27] MEDS: ASPIRIN 81 MG ECTAB PO SCH (07:59)
[2021-05-27] MEDS: CYANOCOBALAMIN 500 MCG TABLET (VITAMIN B-12) PO SCH (07:59)
[2021-05-27] MEDS: CHOLECALCIFEROL 1,000 UNITS 25 MCG TAB PO SCH (07:59)
[2021-05-27] MEDS: AMIODARONE 200 MG TAB PO SCH (07:59)
[2021-05-27] MEDS: ATORVASTATIN 40 MG TAB PO SCH (07:59)
[2021-05-27] MEDS: cefUROXime axetil 250 MG TABLET PO SCH (07:59)
[2021-05-27] MEDS: FLUTICASONE PROPIONATE NA SPR 16 GM BTL SCH (08:00)
[2021-05-27] MEDS: PATIROMER CALCIUM SORBITEX 8.4 GM PACK PO SCH (08:00)
[2021-05-27] MEDS: PYRIDOXINE HCL 50 MG TAB PO SCH ×2 (08:00→20:30)
[2021-05-27] MEDS: AZELASTINE HCL 0.1% NASAL 200 SPRAYS/27,400 MCG BTL SCH ×2 (08:00→20:31)
[2021-05-27 09:02] LABS: Hematocrit (blood only) 25.2 % (42-52); Hemoglobin 8.2 g/dL (14.0-18.0); Mean Corpuscular Hemoglobin 38.1 pg (25-34); Mean Corpuscular Hgb Conc 32.5 g/dL (32-36); Mean Corpuscular Volume 117.2 fL (80-100); Mean Platelet Volume 9.9 fL (7.4-10.4); Platelet Count 367 K/uL (130-400); RDW Standard Deviation 96.7 fL (36.4-46.3); Red Blood Count 2.15 M/uL (4.7-6.1); White Blood Count 6.89 K/uL (4.8-10.8)
[2021-05-27 09:12] LABS: INR 2.6 (0.9-1.1); Prothrombin Time 24.2 Seconds (9.0-12.0)
[2021-05-27 09:22] LABS: BUN Creatinine Ratio 23.9 (10-20); Calcium 8.8 mg/dl (8.5-10.1); Creatinine Clr Calc Pharmacy 17.3 ml/min; Est GFR (African American) 17.7 ml/min; Est GFR (Non-African American) 15.3 ml/min; Potassium 4.7 mmol/L (3.5-5.1)
--- NOTE | 2021-05-27 09:54 | Cardiology Progress Note ---
Date of Service May 27, 2021 Assessment & Plan (1) Acute on chronic HFrEF (heart failure with reduced ejection fraction): (2) Ischemic cardiomyopathy: (3) Atrial fibrillation: (4) UTI (urinary tract infection): Plan: Lexiscan nuclear stress test demonstrates myocardial scar without superimposed ischemia. No benefit to cardiac cath at this time. Labs pending today. Diuretics on hold. Appreciate nephrology input. Chest US with b/l pleural effusions, right greater than left. Pulm consulted to evaluate for thoracentesis. Hold coumadin. Monitor daily weight, fluid balance, GFR, and electrolytes. Inpatient/outpatient wound care clinic for left heel pressure ulcer. Vascular surgery input appreciated. Outpatient electrophysiology consultation consideration for INSTRUMENT LENS GRINDER capable ICD after 3 months of evidence-based medical therapy (approximately 06/26/2021). Referral placed and appt to be scheduled. Case discussed with Dr. White. Admission and Anticipated Discharge Date Admission Date: May 14, 2021 Supervising Physician Co-Signing Physician Notes Patient seen and examined at the bedside. Creatinine trending downward slightly today. Edema unchanged. Chest ultrasound demonstrating large right-sided pleural effusion, 1.8 L. INR 2.6 today. Telemetry reveals sinus rhythm without dysrhythmia. Patient offers no new complaints. PE: VSS with borderline resting hypotension. GEN: NAD, AAOx3. Heart: Regular rhythm, normal S1-S2. No murmur. Lungs: Diminished breath sounds in the right lo wer and midlung field. No rales, rhonchi, wheeze. Extremities: 2+ bilateral ankle edema. A/P: Agree with above PA-C history, physical exam, assessment and plan. Creatinine trending downward slightly. Recommend Bumex 1 mg IV this morning. Case discussed with pulmonary medicine. They are agreeable to evaluate pleural effusion when INR is below 1.6. Place warfarin on hold today. Repeat basic metabolic panel in a.m. Monitor fluid balance, daily weight, GFR, and electrolytes. Nephrology input appreciated. LifeVest will be removed while patient is monitored on telemetry. Subjective Patient feeling ok this morning. Stable dyspnea reported. Slept better last night. No chest pain. No dizziness. Had episode of vomiting yesterday around l unch time. No recurrence. Ongoing edema reported Review of Systems Review of Systems: All systems reviewed & are unremarkable except as noted in HPI & below Physical Exam Constitutional: + ill appearing; no acute distress Respiratory: normal respiratory effort; no respiratory distress, no labored breathing and no retractions Auscultation: + diminished lung sounds (Bases bilateral) and + rales (Bases bilateral); no crackles, no rhonchi and no wheezes Cardiovascular: Rate/Rhythm: regular rate and regular rhythm Heart Sounds: normal S1 and normal S2; no murmur Vessels: no JVD and no carotid bruit Extremities: + edema (1+ pretibial edema) Gastrointestinal (Abdomen): normal bowel sounds, soft, nontender, no hepatosplenomegaly Inspection/Auscultation: abdomen normal to inspection and normal bowel sounds; abdomen not distended Percussion/Palpation: abdomen soft; abdomen nontender, no guarding and abdomen not rigid Neurologic: PERRL, EOMI, accommodation nl, no face palsy, no dysarthria CN's II-XI intact bilaterally and moves all extremities; no focal motor deficits Motor/Sensory: no tremor Results & Data ([facility]) Vital Signs (Past 12 Hours) Vital Signs Temp Pulse Pulse Resp BP Pulse Ox 05/27/21 07:08 36.4 C L 56 L 17 108/63 92 05/27/21 04:07 36.7 C 69 16 117/75 95 05/26/21 23:21 61 05/26/21 23:06 36.4 C L 60 15 107/84 98 Laboratory Results 05/27/21 05/27/21 05/27/21 Range/Units 08:47 08:47 08:47 WBC 6.89 (4.8-10.8) K/uL RBC 2.15 L (4.7-6.1) M/uL Hgb 8.2 L (14.0-18.0) g/dL Hct 25.2 L (42-52) % MCV 117.2 H (80-100) fL MCH 38.1 H (25-34) pg MCHC 32.5 (32-36) g/dL RDW Std Deviation 96.7 H (36.4-46.3) fL RDW Coeff of Geovanni 23.0 H (11.5-14.5) % Plt Count 367 (130-400) K/uL MPV 9.9 (7.4-10.4) fL PT 24.2 H (9.0-12.0) Seconds INR 2.6 H (0.9-1.1) Sodium 136 Potassium 4.7 Chloride 103 Carbon Dioxide 23 Anion Gap 11.0 BUN 85 H Creatinine 3.55 H Est Cr Clr Drug Dosing 17.3 Est GFR ( Amer) 17.7 Est GFR (Non-Af Amer) 15.3 BUN/Creatinine Ratio 23.9 H Glucose 90 Calcium 8.8 Iron 159 (35-175) mcg/dl Transferrin 124 L (200-360) mg/dl Transferrin % Sat 91 H (20-50) % 05/27/21 Range/Units 07:24 WBC (4.8-10.8) K/uL RBC (4.7-6.1) M/uL Hgb (14.0-18.0) g/dL Hct (42-52) % MCV (80-100) fL MCH (25-34) pg MCHC (32-36) g/dL RDW Std Deviation (36.4-46.3) fL RDW Coeff of Geovanni (11.5-14.5) % Plt Count (130-400) K/uL MPV (7.4-10.4) fL PT (9.0-12.0) Seconds INR (0.9-1.1) Sodium Cancelled Potassium Cancelled Chloride Cancelled Carbon Dioxide Cancelled Anion Gap Cancelled BUN Cancelled Creatinine Cancelled Est Cr Clr Drug Dosing Cancelled Est GFR ( Amer) Cancelled Est GFR (Non-Af Amer) Cancelled BUN/Creatinine Ratio Cancelled Glucose Cancelled Calcium Cancelled Iron (35-175) mcg/dl Transferrin (200-360) mg/dl Transferrin % Sat (20-50) % Diagnostic Findings Telemetry reviewed: NSR with conduction delay. No arrhythmias Chest US FINDINGS: Real-time grayscale sonography of the pleural spaces is performed to assess pleural effusions. There are right larger than left pleural effusions with associated atelectasis. The right pleural effusion has an estimated volume of 1878 cc and the left pleural effusion has an estimated volume of 642 cc. These were not marked for bedside thoracentesis. IMPRESSION: Right larger than left pleural effusions as above. Medications Administered Current Inpatient Medications Acetaminophen (Acetaminophen 325 Mg Tab) 650 mg PO Q4H PRN PRN Reason: Pain or Fever Stop: 06/13/21 23:10 Last Admin: 12/06/21 01:04 Dose: 650 mg Documented by: Amiodarone HCl (Amiodarone 200 Mg Tab) 200 mg PO DAILY [facility] Stop: 06/14/21 08:59 Last Admin: 05/27/21 07:59 Dose: 200 mg Documented by: Aspirin (Aspirin 81 Mg Ectab) 81 mg PO QAM [facility] Stop: 06/14/21 08:59 Last Admin: 05/27/21 07:59 Dose: 81 mg Documented by: Atorvastatin Calcium (Atorvastatin 40 Mg Tab) 40 mg PO QAM [facility] Stop: 06/20/21 08:59 Last Admin: 05/27/21 07:59 Dose: 40 mg Documented by: Azelastine HCl (Azelastine Hcl 0.1% Nasal 200 Sprays/27,400 Mcg Btl) 2 sprays NA BID [facility] Stop: 06/13/21 23:44 Last Admin: 05/27/21 08:00 Dose: 2 sprays Documented by: Cefuroxime Axetil (Cefuroxime Axetil 250 Mg Tablet) 250 mg PO DAILY [facility]; Protocol Stop: 06/03/21 11:59 Last Admin: 05/27/21 07:59 Dose: 250 mg Documented by: Cyanocobalamin (Cyanocobalamin 500 Mcg Tablet (Vitamin B-12)) 1,000 mcg PO DAILY [facility] Stop: 06/14/21 08:59 Last Admin: 05/27/21 07:59 Dose: 1,000 mcg Documented by: Fluticasone Propionate (Fluticasone Propionate Na Spr 16 Gm Btl) 1 sprays NA DAILY [facility] Stop: 06/14/21 08:59 Last Admin: 05/27/21 08:00 Dose: 1 sprays Documented by: Furosemide (Furosemide 40 Mg/4 Ml Vial) 40 mg IV BID17 [facility] Stop: 06/23/21 16:59 Last Admin: 05/25/21 16:44 Dose: Not Given Documented by: Levothyroxine Sodium (Levothyroxine Sodium 75 Mcg Tablet) 75 mcg PO DAILYBB [facility] Stop: 06/14/21 06:29 Last Admin: 05/27/21 05:47 Dose: 75 mcg Documented by: Lorazepam (Lorazepam 0.5 Mg Tab) 0.5 mg PO HS PRN PRN Reason: Insomnia Stop: 06/16/21 03:00 Last Admin: 05/27/21 00:30 Dose: 0.5 mg Documented by: Melatonin (Melatonin 3 Mg Tab) 3 mg PO HS PRN PRN Reason: Sleep Stop: 06/14/21 00:39 Last Admin: 05/16/21 20:46 Dose: 3 mg Documented by: Metoprolol Succinate (Metoprolol Succ 25mg Ext Rel Tab) 25 mg PO PM [facility] Stop: 06/14/21 20:59 Last Admin: 05/26/21 19:48 Dose: 25 mg Documented by: Nitroglycerin (Nitroglycerin Sl 0.4 Mg/Tab Tab) 0.4 mg SL UD PRN PRN Reason: Chest Pain Stop: 06/13/21 23:10 Patiromer (Patiromer Calcium Sorbitex 8.4 Gm Pack) 8.4 gm PO DAILY [facility] Stop: 06/25/21 09:59 Last Admin: 05/27/21 08:00 Dose: 8.4 gm Documented by: Polyethylene Glycol (Polyethylene (Miralax) 17 Gm Pack) 17 gm PO DAILY PRN PRN Reason: Constipation Stop: 06/15/21 20:48 Last Admin: 05/23/21 08:25 Dose: 17 gm Documented by: Pyridoxine HCl (Pyridoxine Hcl 50 Mg Tab) 100 mg PO BID [facility] Stop: 06/13/21 23:44 Last Admin: 05/27/21 08:00 Dose: 100 mg Documented by: Senna/Docusate Sodium (Docusate Sodium/Senna 50/8.6mg Tab) 1 tab PO HS [facility] Stop: 06/16/21 20:59 Last Admin: 05/26/21 19:49 Dose: 1 tab Documented by: Triamcinolone Acetonide (Triamcinolone Acet 0.1% Oint 15 Gm Tube) 1 appln TOP HS PRN PRN Reason: Rash Stop: 06/13/21 23:10 Vitamin D (Cholecalciferol 1,000 Units 25 Mcg Tab) 1,000 units PO DAILY [facility] Stop: 06/14/21 08:59 Last Admin: 05/27/21 07:59 Dose: 1,000 units Documented by: Warfarin Sodium (Warfarin Sod 2 Mg Tab) 2 mg PO DAILY@1600 [facility] Stop: 06/16/21 15:59 Last Admin: 05/26/21 15:29 Dose: 2 mg Documented by:
[2021-05-27] MEDS ORDERED: BUMETANIDE 1 MG in SYRINGE 0 ML IV SCH (10:45)
--- NOTE | 2021-05-27 15:20 | Nephrology Progress Note ---
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 Baseline creatinine of 2.5. Admission creatinine of 3.8 and plateau'd at about 2.6 for several days; after about 48 hours on higher Lasix dosing weekend of 05/22, creatinine increased to 3.3 then plateau'd at 3.6. > I/O incomplete consistently in part d/t pt incontinence -first lasix was lowered; then from 40 tid IV to 40 bid IV; lasix held after PM dose 05/24; started on bumex 1 mg IV daily today > will adjust to bumex 0.5 mg IV dosed at 0700, noon, 1700 >>his fluid status is worsening; may need dialysis -cont POTASSIUM binder for now -cont dialysis diet and 1.5L FR -Monitor input output - needs I/O best we can -Daily BMP -daily standing weight >ideally would have a del rosario; however he has already had a UTI this admission (2) Acute decompensated heart failure: Plan: Patient with a low EF of 25% and pulmonary hypertension. Longer term for OP EP consult mid June, after appropriate medical tx window/optimization -diuretics limited as above Continue fluid limit 1.5 L daily (in general he takes in less than 1 L); continue less than 2 g daily sodium diet -care coordinated with Dr Spaulding (3) Pain of left heel: Plan: vascular following; for conservative mgt currently; to follow-up with inpatient and outpatient wound care; pt s/p LLE thrombectomy 03/2021 during admission for NSTEMI and w/ BL thoracentesis (4) Goals of care, counseling/discussion: Plan: spoke w/ pt and his son 05/26 by phone for > 30 min; risks/benefits/indications for / alternatives to dialysis reviewed; not sure he will need dialysis but need could arise next 24-48 hrs. w/ his severe ICMO, not clear to me how well he would tolerate HD but will continue to discuss as needed. pt /son not sure whether he would do dialysis but grateful to have information for consideration. (5) Anemia due to chronic disease treated with erythropoietin: Plan: will redose procrit 20K units today and update iron stores in am Admission and Anticipated Discharge Date Admission Date: May 14, 2021 Subjective breathing unchanged; pt incontinent of urine; wondering if he will have thoracentesis; no further emesis Review of Systems Review of Systems: All systems reviewed & are unremarkable except as noted in Subjective Physical Exam Constitutional: well developed and well nourished; no acute distress Eyes: EOM intact bilaterally ENMT: Ears: no external ear abnormality Nose: no external nose abnormality Mouth: + dry oral mucous membranes Neck: no nuchal rigidity Respiratory: + labored breathing (slight), able to speak in complete sentences and + paradoxical thoraco-abdominal movement Auscultation: + diminished lung sounds and + crackles (Bilateral) Cardiovascular: Rate/Rhythm: regular rate and regular rhythm Extremities: no edema Gastrointestinal (Abdomen): Inspection/Auscultation: normal bowel sounds Percussion/Palpation: abdomen soft; abdomen nontender Musculoskeletal: Extremities: strength 5/5 throughout Skin: no rashes, warm and dry Psychiatric: Orientation: alert and oriented x 3 Results & Data ([facility]) Vital Signs (Past 12 Hours) Vital Signs Temp Pulse Resp BP Pulse Ox 05/27/21 11:50 36.3 C L 67 19 103/61 96 05/27/21 07:08 36.4 C L 56 L 17 108/63 92 05/27/21 04:07 36.7 C 69 16 117/75 95 Laboratory Results 05/27/21 08:47 05/27/21 08:47
[2021-05-27] MEDS ORDERED: BUMETANIDE 0.5 MG in SYRINGE 0 ML IV STA (15:26)
[2021-05-27] MEDS ORDERED: PHYTONADIONE 2.5 MG in SODIUM CHLORIDE 0.9% 50 ML IV ONE (18:15)
--- NOTE | 2021-05-27 18:33 | Hospitalist Progress Note ---
Date of Service May 27, 2021 Assessment & Plan (1) Acute on chronic HFrEF (heart failure with reduced ejection fraction): (2) Ischemic cardiomyopathy: (3) Pleural effusion: Plan: (1) Acute on chronic HFrEF (heart failure with reduced ejection fraction): (1) Pleural effusion: R (1878 cc)>L (642 cc), 2/2 to above, will continue to hold warfarin 05/26 for preparation of thoracentesis, vitamin K 2.5 mg today, INR daily. Has underlying ischemic cardiomyopathy with an EF 25% and is wearing a life vest which was given to him on hospital discharge 03/20/21. IV diuretics per nephrology with continued dyspnea on exertion. FR 1.5 L daily. Strict Is and Os. Anthony not feasible d/t recent UTI Continue Toprol XL and aspirin. RYLEE/ARB contraindicated in renal disease. Atorvastatin initially held in LFT elevation 2/2 congestive hepatopathy but this has been restarted. Defer diuretic titration to Cardiology and Nephrology teams (2) Acute kidney injury superimposed on chronic kidney disease: Recent increased diuretic use as outpatient prior to hospitalization. Possible etiology also cardiorenal syndrome per nephro. Baseline creat 2.5. Cont IV diuretics per nephrology. Daily BMP, Cr seems to have stabilized in mid threes. Nephrology having discussion regarding possible dialysis. (3) Ischemic cardiomyopathy: presumed per cardiology (4) Ventricular tachycardia: maintains life vest. After foot and urine infections are cleared up, plan will be for outpatient EP consultation for consideration of GIS TECHNICIAN capable ICD. Cardiology team to arrange at discharge. (5) Atrial fibrillation: Per cardiology, two brief episodes of afib noted 05/19 and . Continue amiodarone, Toprol-XL. warfarin held 05/26 for thoracentesis, will follow INR, resume once appropriate. (6) Pain of left heel: Recent thrombectomy of his left lower extremity in Mar 2021 after an NSTEMI and bilateral thoracentesis. He is subsequently developed a pressure ulcer that was painful on the left heel. Vascular evaluated and no further interventions needed. Cont medical management of peripheral vascular disease. (7) Aortic stenosis: (8) Elevated transaminase level: Likely secondary to congestive hepatopathy, right upper quadrant ultrasound is within normal limits. This is improved and atorvastatin was restarted. (9) Anemia in CKD (chronic kidney disease): Continues on Procrit as outpatient. Hb is stable. (10) UTI (urinary tract infection): Cont ATB 05/24 pending culture results. (11) DVT prophylaxis: Therapeutic INR, on warfarin (held), SCDs. Monitor INR Full code Disposition-continue PCU stay pending cardiology clearance Admission and Anticipated Discharge Date Admission Date: May 14, 2021 Subjective Patient was sitting up in bed, on room air, NAD, no new acute events overnight. Patient reports shortness of breath with minimal movement. Patient reports decreased appetite. Patient denies any headache/dizziness/chest p ain/palpitation/other review of symptoms. Physical Exam Physical Exam: GENERAL: Alert and oriented x3. NAD, on RA. HEENT: No pallor, no icterus. Pupils equal, round and reactive to light. Oral mucosa moist. NECK: No JVD, no neck masses. HEART: S1 and S2 heard. Regular rate and rhythm. Systolic murmur over aortic area, no gallop. RESPIRATORY SYSTEM: Normal AP diameter. No accessory muscle use. No wheezing, b/l upper lobe crackles. Right greater than left decreased breath sounds noted. ABDOMEN: Soft, bowel sounds present, nontender, no distention. CENTRAL NERVOUS SYSTEM: No facial droop. Speech is clear. Obeys simple commands. Moves extremities. EXTREMITIES: 1+ BLE edema, no erythema seen. Results & Data Results & Data ([facility]) Vital Signs (Past 12 Hours) Vital Signs Temp Pulse Resp BP Pulse Ox 05/27/21 16:01 36.4 C L 58 L 19 104/66 95 05/27/21 11:50 36.3 C L 67 19 103/61 96 05/27/21 07:08 36.4 C L 56 L 17 108/63 92
[2021-05-27] MEDS ORDERED: BUMETANIDE 0.5 MG in SYRINGE 0 ML IV ONE (20:00)
[2021-05-27] MEDS: METOPROLOL SUCC 25MG EXT REL TAB PO SCH (20:16)
[2021-05-27] MEDS: DOCUSATE SODIUM/SENNA 50/8.6MG TAB PO SCH (20:31)
[2021-05-28] MEDS: LEVOTHYROXINE SODIUM 75 MCG TABLET PO SCH (05:40)
[2021-05-28] MEDS: BUMETANIDE 0.5 MG in SYRINGE 0 ML IV SCH ×3 (05:41→17:08)
[2021-05-28 06:04] LABS: INR 2.2 (0.9-1.1); Prothrombin Time 21.4 Seconds (9.0-12.0)
[2021-05-28 06:06] LABS: Hematocrit (blood only) 22.9 % (42-52); Hemoglobin 7.7 g/dL (14.0-18.0); Mean Corpuscular Hemoglobin 39.1 pg (25-34); Mean Corpuscular Hgb Conc 33.6 g/dL (32-36); Mean Corpuscular Volume 116.2 fL (80-100); Mean Platelet Volume 9.9 fL (7.4-10.4); Platelet Count 308 K/uL (130-400); RDW Coefficient of Variation 23.1 % (11.5-14.5); RDW Standard Deviation 95.2 fL (36.4-46.3); Red Blood Count 1.97 M/uL (4.7-6.1); White Blood Count 6.77 K/uL (4.8-10.8)
[2021-05-28 06:54] LABS: BUN Creatinine Ratio 25.9 (10-20); Calcium 8.7 mg/dl (8.5-10.1); Creatinine Clr Calc Pharmacy 16.9 ml/min; Est GFR (African American) 19.2 ml/min; Est GFR (Non-African American) 16.6 ml/min; Potassium 3.8 mmol/L (3.5-5.1)
[2021-05-28] MEDS: CYANOCOBALAMIN 500 MCG TABLET (VITAMIN B-12) PO SCH (08:27)
[2021-05-28] MEDS: AMIODARONE 200 MG TAB PO SCH (08:28)
[2021-05-28] MEDS: ASPIRIN 81 MG ECTAB PO SCH (08:28)
[2021-05-28] MEDS: ATORVASTATIN 40 MG TAB PO SCH (08:28)
[2021-05-28] MEDS: FLUTICASONE PROPIONATE NA SPR 16 GM BTL SCH (08:29)
[2021-05-28] MEDS: PYRIDOXINE HCL 50 MG TAB PO SCH ×2 (08:29→20:30)
[2021-05-28] MEDS: cefUROXime axetil 250 MG TABLET PO SCH (08:29)
[2021-05-28] MEDS: CHOLECALCIFEROL 1,000 UNITS 25 MCG TAB PO SCH (08:29)
[2021-05-28] MEDS: AZELASTINE HCL 0.1% NASAL 200 SPRAYS/27,400 MCG BTL SCH ×2 (08:30→20:28)
--- NOTE | 2021-05-28 10:01 | Cardiology Progress Note ---
Date of Service May 28, 2021 Assessment & Plan (1) Acute on chronic HFrEF (heart failure with reduced ejection fraction): (2) Ischemic cardiomyopathy: (3) Atrial fibrillation: (4) UTI (urinary tract infection): Plan: Lexiscan nuclear stress test demonstrates myocardial scar without superimposed ischemia. No benefit to cardiac cath at this time. Chest US with b/l pleural effusions, right greater than left. Plan for future thoracentesis. Hold Coumadin. When INR 1.5, reconsult pulm to plan for procedure. When INR < 2.0, recommend heparin be initiated due to history of PAF and arterial occlusion of his left leg last admission. Diuretic management discussed with Dr. Garcia. Bumex ordered 0.5 mg TID. Monitor daily weight, fluid balance, GFR, and electrolytes. Inpatient/outpatient wound care clinic for left heel pressure ulcer. Vascular surgery input appreciated. Outpatient electrophysiology consultation consideration for REAL ESTATE MANAGEMENT SPECIALIST capable ICD after 3 months of evidence-based medical therapy (approximately 06/26/2021). Referral placed and appt to be scheduled. Case discussed with Dr. White. Admission and Anticipated Discharge Date Admission Date: May 14, 2021 Supervising Physician Co-Signing Physician Notes Patient seen and examined at the bedside.Creatinine mildly improved. Edema u nchanged. Chest ultrasound demonstrating large right-sided pleural effusion, 1.8 L. INR 2.2 today. Telemetry reveals sinus rhythm without dysrhythmia. Patient offers no new complaints. PE: VSS with borderline resting hypotension. GEN: NAD, AAOx3. Heart: Regular rhythm, normal S1-S2. No murmur. Lungs: Diminished breath sounds in the right lower and midlung field. No rales, rhonchi, wheeze. Extremities: 2+ bilateral ankle edema. A/P: Agree with above PA-C history, physical exam, assessment and plan. Creatinine trending downward slightly. Nephrology recommending low-dose Bumex 0.5 mg 3 times daily. Monitor fluid balance, daily weight, GFR, and electrolytes. Hold warfarin in anticipation of thoracentesis. Initiate IV anticoagulation bridging therapy with heparin when INR falls below 2.0. Subjective Patient resting in bed comfortably. Ongoing dyspnea reported. No chest pain. Edema slightly better than yesterday. No dizziness or lightheadedness. Increased urine output yesterday with Bumex. Review of Systems Review of Systems: All systems reviewed & are unremarkable except as noted in HPI & below Physical Exam Constitutional: + ill appearing; no acute distress Respiratory: normal respiratory effort; no respiratory distress, no labored breathing and no retractions Auscultation: + diminished lung sounds (Bases bilateral) and + rales (Bases bilateral); no crackles, no rhonchi and no wheezes Cardiovascular: Rate/Rhythm: regular rate and regular rhythm Heart Sounds: normal S1 and normal S2; no murmur Vessels: no JVD and no carotid bruit Extremities: + edema (1+ pretibial edema) Gastrointestinal (Abdomen): normal bowel sounds, soft, nontender, no hepatosplenomegaly Inspection/Auscultation: abdomen normal to inspection and normal bowel sounds; abdomen not distended Percussion/Palpation: abdomen soft; abdomen nontender, no guarding and abdomen not rigid Neurologic: PERRL, EOMI, accommodation nl, no face palsy, no dysarthria CN's II-XI intact bilaterally and moves all extremities; no focal motor deficits Motor/Sensory: no tremor Results & Data ([facility]) Vital Signs (Past 12 Hours) Vital Signs Temp Pulse Pulse Resp BP BP Pulse Ox 05/28/21 08:00 36.4 C L 89 18 115/72 98 05/28/21 03:09 36.4 C L 97 H 20 110/64 94 05/28/21 00:21 66 05/27/21 23:12 36.4 C L 67 16 105/61 100 Laboratory Results 05/28/21 05/28/21 05/28/21 Range/Units 05:39 05:39 05:39 WBC 6.77 (4.8-10.8) K/uL RBC 1.97 L (4.7-6.1) M/uL Hgb 7.7 L (14.0-18.0) g/dL Hct 22.9 L (42-52) % MCV 116.2 H (80-100) fL MCH 39.1 H (25-34) pg MCHC 33.6 (32-36) g/dL RDW Std Deviation 95.2 H (36.4-46.3) fL RDW Coeff of Geovanni 23.1 H (11.5-14.5) % Plt Count 308 (130-400) K/uL MPV 9.9 (7.4-10.4) fL PT 21.4 H (9.0-12.0) Seconds INR 2.2 H (0.9-1.1) Sodium 137 (136-145) mmol/L Potassium 3.8 D (3.5-5.1) mmol/L Chloride 104 (98-107) mmol/L Carbon Dioxide 24 (21-32) mmol/L Anion Gap 9.0 (3-11) BUN 86 H (7-18) mg/dl Creatinine 3.32 H (0.6-1.4) mg/dl Est Cr Clr Drug Dosing 16.9 ml/min Est GFR ( Amer) 19.2 ml/min Est GFR (Non-Af Amer) 16.6 ml/min BUN/Creatinine Ratio 25.9 H (10-20) Glucose 106 H (70-99) mg/dl Calcium 8.7 (8.5-10.1) mg/dl Diagnostic Findings Telemetry reviewed: NSR with conduction delay. No arrhythmias Medications Administered Current Inpatient Medications Acetaminophen (Acetaminophen 325 Mg Tab) 650 mg PO Q4H PRN PRN Reason: Pain or Fever Stop: 06/13/21 23:10 Last Admin: 05/17/21 01:04 Dose: 650 mg Documented by: Amiodarone HCl (Amiodarone 200 Mg Tab) 200 mg PO DAILY [facility] Stop: 06/14/21 08:59 Last Admin: 05/28/21 08:28 Dose: 200 mg Documented by: Aspirin (Aspirin 81 Mg Ectab) 81 mg PO [facility] Stop: 06/14/21 08:59 Last Admin: 05/28/21 08:28 Dose: 81 mg Documented by: Atorvastatin Calcium (Atorvastatin 40 Mg Tab) 40 mg PO QAM [facility] Stop: 06/20/21 08:59 Last Admin: 05/28/21 08:28 Dose: 40 mg Documented by: Azelastine HCl (Azelastine Hcl 0.1% Nasal 200 Sprays/27,400 Mcg Btl) 2 sprays NA BID [facility] Stop: 06/13/21 23:44 Last Admin: 05/28/21 08:30 Dose: 2 sprays Documented by: Cefuroxime Axetil (Cefuroxime Axetil 250 Mg Tablet) 250 mg PO DAILY [facility]; Protocol Stop: 06/03/21 11:59 Last Admin: 05/28/21 08:29 Dose: 250 mg Documented by: Cyanocobalamin (Cyanocobalamin 500 Mcg Tablet (Vitamin B-12)) 1,000 mcg PO DAILY [facility] Stop: 06/14/21 08:59 Last Admin: 05/28/21 08:27 Dose: 1,000 mcg Documented by: Fluticasone Propionate (Fluticasone Propionate Na Spr 16 Gm Btl) 1 sprays NA DAILY [facility] Stop: 06/14/21 08:59 Last Admin: 05/28/21 08:29 Dose: 1 sprays Documented by: Furosemide (Furosemide 40 Mg/4 Ml Vial) 40 mg IV BID17 [facility] Stop: 06/23/21 16:59 Last Admin: 05/25/21 16:44 Dose: Not Given Documented by: Bumetanide 0.5 mg/ Syringe 2 mls @ 4 mls/min IV TID@0700,1200,1700 [facility] Stop: 06/27/21 06:59 Last Admin: 05/28/21 05:41 Dose: 4 mls/min Documented by: Levothyroxine Sodium (Levothyroxine Sodium 75 Mcg Tablet) 75 mcg PO DAILYBB [facility] Stop: 06/14/21 06:29 Last Admin: 05/28/21 05:40 Dose: 75 mcg Documented by: Lorazepam (Lorazepam 0.5 Mg Tab) 0.5 mg PO HS PRN PRN Reason: Insomnia Stop: 06/16/21 03:00 Last Admin: 05/27/21 00:30 Dose: 0.5 mg Documented by: Melatonin (Melatonin 3 Mg Tab) 3 mg PO HS PRN PRN Reason: Sleep Stop: 06/14/21 00:39 Last Admin: 05/16/21 20:46 Dose: 3 mg Documented by: Metoprolol Succinate (Metoprolol Succ 25mg Ext Rel Tab) 25 mg PO PM [facility] Stop: 06/14/21 20:59 Last Admin: 05/27/21 20:16 Dose: Not Given Documented by: Nitroglycerin (Nitroglycerin Sl 0.4 Mg/Tab Tab) 0.4 mg SL UD PRN PRN Reason: Chest Pain Stop: 06/13/21 23:10 Polyethylene Glycol (Polyethylene (Miralax) 17 Gm Pack) 17 gm PO DAILY PRN PRN Reason: Constipation Stop: 06/15/21 20:48 Last Admin: 05/23/21 08:25 Dose: 17 gm Documented by: Pyridoxine HCl (Pyridoxine Hcl 50 Mg Tab) 100 mg PO BID [facility] Stop: 06/13/21 23:44 Last Admin: 05/28/21 08:29 Dose: 100 mg Documented by: Senna/Docusate Sodium (Docusate Sodium/Senna 50/8.6mg Tab) 1 tab PO HS [facility] Stop: 06/16/21 20:59 Last Admin: 05/27/21 20:31 Dose: Not Given Documented by: Triamcinolone Acetonide (Triamcinolone Acet 0.1% Oint 15 Gm Tube) 1 appln TOP HS PRN PRN Reason: Rash Stop: 06/13/21 23:10 Vitamin D (Cholecalciferol 1,000 Units 25 Mcg Tab) 1,000 units PO DAILY [facility] Stop: 06/14/21 08:59 Last Admin: 05/28/21 08:29 Dose: 1,000 units Documented by: Warfarin Sodium (Warfarin Sod 2 Mg Tab) 2 mg PO DAILY@1600 [facility] Stop: 06/16/21 15:59 Last Admin: 05/26/21 15:29 Dose: 2 mg Documented by:
--- NOTE | 2021-05-28 13:07 | Nephrology Progress Note ---
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 Baseline creatinine of 2.5. Admission creatinine of 3.8 and plateau'd at about 2.6 for several days; after about 48 hours on higher Lasix dosing weekend of 05/22, creatinine increased to 3.3 then plateau'd at 3.6; slightly better today at 3.3. > I/O incomplete consistently in part d/t pt incontinence -first lasix was from 40 tid IV to 40 bid IV; lasix held after PM dose 05/24; started on bumex 1 mg IV daily 05/28 > on 05/29 started bumex 0.5 mg IV dosed at 0700, noon, 1700 >>his fluid status is worsening; may need dialysis -stopped POTASSIUM binder for now -cont dialysis diet and 1.5L FR -Monitor input output - needs I/O best we can -Daily BMP -daily standing weight: so far 2 this admission; was 81.2 on 05/19; was 78.8 on 05/28 >ideally would have a del rosario; however he has already had a UTI this admission so will defer that; explained to pt (2) Acute decompensated heart failure: Plan: Patient with a low EF of 25% and pulmonary hypertension. Longer term for OP EP consult mid June, after appropriate medical tx window/optimization -diuretics limited as above Continue fluid limit 1.5 L daily (in general he takes in less than 1 L); continue less than 2 g daily sodium diet -care coordinated with cardiology PA >> for possible thoracentesis (3) Pain of left heel: Plan: vascular following; for conservative mgt currently; to follow-up with inpatient and outpatient wound care; pt s/p LLE thrombectomy 03/2021 during admission for NSTEMI and w/ BL thoracentesis (4) Goals of care, counseling/discussion: Plan: spoke w/ pt and his son 05/26 by phone for > 30 min; risks/benefits/indications for / alternatives to dialysis reviewed; not sure he will need dialysis but need could arise next 24-48 hrs. w/ his severe ICMO, not clear to me how well he would tolerate HD but will continue to discuss as needed. pt /son not sure wheth er he would do dialysis but grateful to have information for consideration. >>>low threshold to get palliative back in to discuss multiple comorbidities/goals of care (5) Anemia due to chronic disease treated with erythropoietin: Plan: will redose procrit 20K units today and update iron stores in am Admission and Anticipated Discharge Date Admission Date: May 14, 2021 Subjective he c/o exertional dyspnea and challenges of diuresing w/o del rosario; breathing about the same; not orthopneic but marked exertional dyspnea. no worsening foot pain. no gross hematuria/dysuria. Review of Systems Review of Systems: All systems reviewed & are unremarkable except as noted in Subjective Physical Exam Constitutional: well developed and well nourished; no acute distress Eyes: EOM intact bilaterally ENMT: Ears: no external ear abnormality Nose: no external nose abnormality Mouth: + dry oral mucous membranes Neck: no nuchal rigidity Respiratory: + labored breathing (slight), able to speak in complete sentences and + paradoxical thoraco-abdominal movement Auscultation: + diminished lung sounds (cleo R post field 1/[address]) and + crackles (Bilateral) Cardiovascular: Rate/Rhythm: regular rate and regular rhythm Extremities: no edema Gastrointestinal (Abdomen): Inspection/Auscultation: normal bowel sounds Percussion/Palpation: abdomen soft; abdomen nontender Musculoskeletal: Extremities: strength 5/5 throughout Skin: no rashes, warm and dry Neurologic: [place], fluent speech, no tremor Psychiatric: Orientation: alert and oriented x 3 Affect: + anxious affect Insight: + limited insight Judgement: + limited judgement Genitourinary: no del rosario Results & Data ([facility]) Vital Signs (Past 12 Hours) Vital Signs Temp Pulse Resp BP BP Pulse Ox 05/28/21 12:00 36.8 C 63 18 135/69 98 05/28/21 08:00 36.4 C L 89 18 115/72 98 05/28/21 03:09 36.4 C L 97 H 20 110/64 94 Laboratory Results 05/28/21 05:39 05/28/21 05:39
--- NOTE | 2021-05-28 17:03 | Hospitalist Progress Note ---
Date of Service May 28, 2021 Assessment & Plan (1) Acute on chronic HFrEF (heart failure with reduced ejection fraction): (2) Ischemic cardiomyopathy: (3) Pleural effusion: Plan: (1) Acute on chronic HFrEF (heart failure with reduced ejection fraction): (1) Pleural effusion: R (1878 cc)>L (642 cc), 2/2 to above, will continue to hold warfarin 05/26 for preparation of thoracentesis, vitamin K 2.5 mg 05/27, INR daily. Will consult pulm once INR <1.5 Has underlying ischemic cardiomyopathy with an EF 25% and is wearing a life vest which was given to him on hospital discharge 03/20/21. IV diuretics per nephrology with continued dyspnea on exertion. FR 1.5 L daily. Strict Is and Os. Anthony not feasible d/t recent UTI Continue Toprol XL and aspirin. RYLEE/ARB contraindicated in renal disease. Atorvastatin initially held in LFT elevation 2/2 congestive hepatopathy but this has been restarted. Defer diuretic titration to Cardiology and Nephrology teams (2) Acute kidney injury superimposed on chronic kidney disease: Recent increased diuretic use as outpatient prior to hospitalization. Possible etiology also cardiorenal syndrome per nephro. Baseline creat 2.5. Cont IV diuretics per nephrology. Daily BMP, Cr seems to have stabilized in mid threes. Nephrology having discussion regarding possible dialysis. (3) Ischemic cardiomyopathy: presumed per cardiology -> Lexiscan nuclear stress test demonstrated myocardial scar without superimposed ischemia, no benefit to cardiac cath at this time. Will need OP EP consultation (consideration for SHOVE UP capable ICD after 3 months of evidence-based medical therapy (approx 06/26/21). (4) Ventricular tachycardia: maintains life vest. After foot and urine infections are cleared up, plan will be for outpatient EP consultation for consideration of SHOVE UP capable ICD. Card iology team to arrange at discharge. (5) Atrial fibrillation: Per cardiology, two brief episodes of afib noted 05/19 and . Continue amiodarone, Toprol-XL. warfarin held 05/26 for thoracentesis, will follow INR, resume once appropriate. Initiate patient on IV heparin once INR less than 2 to be stopped per pulmonology prior to thoracentesis. (6) Pain of left heel: Recent thrombectomy of his left lower extremity in Mar 2021 after an NSTEMI and bilateral thoracentesis. He is subsequently developed a pressure ulcer that was painful on the left heel. Vascular evaluated and no further interventions needed. Cont medical management of peripheral vascular disease. (7) Aortic stenosis: (8) Elevated transaminase level: Likely secondary to congestive hepatopathy, right upper quadrant ultrasound is within normal limits. This is improved and atorvastatin was restarted. (9) Anemia in CKD (chronic kidney disease): Continues on Procrit as outpatient. Hb is stable. (10) UTI (urinary tract infection): 05/20 urine culture positive for E. coli sensitive to cefepime and ceftriaxone. cefuroxime 05/24-05/28 to cefdinir 05/28 for 3 more days. (11) DVT prophylaxis: Therapeutic INR, on warfarin (held), SCDs. Monitor INR Full code Disposition-continue PCU stay pending cardiology clearance. Will need OP EP consultation (consideration for SHOVE UP capable ICD after 3 months of evidence-based medical therapy (approx 06/26/21). Admission and Anticipated Discharge Date Admission Date: May 14, 2021 Subjective Patient is lying in bed, on room air, NAD, no new acute events overnight. Patient has moved her bowels yesterday and reports no blood or black tarry stool. His hemoglobin has dropped today, FOBT has been sent. Patient reports eating okay. Patient is still reports of getting short of breath with movement. Patient denies headache/dizziness/chest pain/palpitation/other review of symptoms. Physical Exam Physical Exam: GENERAL: Alert and oriented x3. NAD, on RA. HEENT: No pallor, no icterus. Pupils equal, round and reactive to light. Oral mucosa moist. NECK: No JVD, no neck masses. HEART: S1 and S2 heard. Regular rate and rhythm. Systolic murmur over aortic area, no gallop. RESPIRATORY SYSTEM: Normal AP diameter. No accessory muscle use. No wheezing, b/l upper lobe crackles. Right greater than left decreased breath sounds noted. ABDOMEN: Soft, bowel sounds present, nontender, no distention. CENTRAL NERVOUS SYSTEM: No facial droop. Speech is clear. Obeys simple commands. Moves extremities. EXTREMITIES: 1+ BLE edema, no erythema seen. Results & Data Results & Data ([facility]) Vital Signs (Past 12 Hours) Vital Signs Temp Pulse Resp BP Pulse Ox 05/28/21 12:00 36.8 C 63 18 135/69 98 05/28/21 08:00 36.4 C L 89 18 115/72 98
[2021-05-28] MEDS: CEFDINIR 300 MG CAP PO SCH (20:28)
[2021-05-28] MEDS: METOPROLOL SUCC 25MG EXT REL TAB PO SCH (20:29)
[2021-05-28] MEDS: DOCUSATE SODIUM/SENNA 50/8.6MG TAB PO SCH (20:30)
[2021-05-29] MEDS: BUMETANIDE 0.5 MG in SYRINGE 0 ML IV SCH ×3 (06:09→16:43)
[2021-05-29] MEDS: LEVOTHYROXINE SODIUM 75 MCG TABLET PO SCH (06:09)
[2021-05-29 07:21] LABS: Hematocrit (blood only) 23.7 % (42-52); Hemoglobin 7.7 g/dL (14.0-18.0); Mean Corpuscular Hemoglobin 38.3 pg (25-34); Mean Corpuscular Hgb Conc 32.5 g/dL (32-36); Mean Corpuscular Volume 117.9 fL (80-100); Mean Platelet Volume 9.8 fL (7.4-10.4); Platelet Count 287 K/uL (130-400); RDW Coefficient of Variation 23.2 % (11.5-14.5); RDW Standard Deviation 96.9 fL (36.4-46.3); Red Blood Count 2.01 M/uL (4.7-6.1); White Blood Count 6.54 K/uL (4.8-10.8)
[2021-05-29 07:33] LABS: INR 1.6 (0.9-1.1); Prothrombin Time 16.1 Seconds (9.0-12.0)
[2021-05-29 07:57] LABS: BUN Creatinine Ratio 27.5 (10-20); Calcium 8.4 mg/dl (8.5-10.1); Creatinine Clr Calc Pharmacy 19.1 ml/min; Est GFR (African American) 22.3 ml/min; Est GFR (Non-African American) 19.2 ml/min; Potassium 3.2 mmol/L (3.5-5.1)
[2021-05-29] MEDS: AMIODARONE 200 MG TAB PO SCH (08:52)
[2021-05-29] MEDS: ASPIRIN 81 MG ECTAB PO SCH (08:52)
[2021-05-29] MEDS: FLUTICASONE PROPIONATE NA SPR 16 GM BTL SCH (08:52)
[2021-05-29] MEDS: AZELASTINE HCL 0.1% NASAL 200 SPRAYS/27,400 MCG BTL SCH ×2 (08:52→21:43)
[2021-05-29] MEDS: PYRIDOXINE HCL 50 MG TAB PO SCH ×2 (08:53→21:43)
[2021-05-29] MEDS: CYANOCOBALAMIN 500 MCG TABLET (VITAMIN B-12) PO SCH (08:53)
[2021-05-29] MEDS: ATORVASTATIN 40 MG TAB PO SCH (08:53)
[2021-05-29] MEDS: CHOLECALCIFEROL 1,000 UNITS 25 MCG TAB PO SCH (08:53)
[2021-05-29] MEDS ORDERED: Heparin IV Adult Wt-Based Standard *NO* Bolus Protocol IV SCH (09:09)
[2021-05-29] MEDS ORDERED: POTASSIUM CHLORIDE CRTAB 20 MEQ TABCR PO STA ×2 (09:13→13:48)
[2021-05-29] MEDS ORDERED: HEPARIN SODIUM/DEXTROSE 25,000 UNITS/500 ML BAG IV SCH (10:45)
--- NOTE | 2021-05-29 11:33 | Cardiology Progress Note ---
Date of Service May 29, 2021 Assessment & Plan (1) Acute on chronic HFrEF (heart failure with reduced ejection fraction): (2) Ischemic cardiomyopathy: (3) Atrial fibrillation: (4) UTI (urinary tract infection): Plan: Lexiscan nuclear stress test demonstrates myocardial scar without superimposed ischemia. No benefit to cardiac cath at this time. Chest US with b/l pleural effusions, right greater than left. Plan for future thoracentesis. Hold Coumadin. When INR 1.5, reconsult pulm to plan for procedure. IV heparin will be initiated today with INR of 1.6 Anticipate thoracentesis tomorrow Continue diuresis as ordered and potassium supplement also performed Volume overload and congestive heart failure improving. Will need to follow persistent anemia Admission and Anticipated Discharge Date Admission Date: May 14, 2021 Subjective Patient was seen and examined, chart, medications, telemetry reviewed. Feels improved still dyspneic with minimal activity. No chest pains or discomfort. No dizziness or lightheadedness. Patient still diuresing with improving renal function. Potassium supplemented this morning Review of Systems Review of Systems: All systems reviewed & are unremarkable except as noted in HPI & below and All systems reviewed & are unremarkable except as noted in Subjective Physical Exam Constitutional: no acute distress Eyes: PERRL, conjunctivae normal, anicteric sclerae ENMT: external ear and nose normal, oropharynx normal Neck: trachea midline, no thyromegaly Respiratory: normal respiratory effort; no respiratory distress, no labored breathing and no retractions Auscultation: + diminished lung sounds (Bases bilateral right greater than left with dullness to percussion); no crackles, no rhonchi and no wheezes Cardiovascular: Rate/Rhythm: regular rate and regular rhythm Heart Sounds: normal S1 and normal S2; no murmur Vessels: no JVD and no carotid bruit Extremities: + edema (1+ pretibial edema) Gastrointestinal (Abdomen): normal bowel sounds, soft, nontender, no hepatosplenomegaly Inspection/Auscultation: abdomen normal to inspection and normal bowel sounds; abdomen not distended Percussion/Palpation: abdomen soft; abdomen nontender, no guarding and abdomen not rigid Neurologic: PERRL, EOMI, accommodation nl, no face palsy, no dysarthria CN's II-XI intact bilaterally and moves all extremities; no focal motor deficits Motor/Sensory: no tremor Results & Data ([facility]) Vital Signs (Past 12 Hours) Vital Signs Temp Pulse Pulse Resp BP BP Pulse Ox 05/29/21 08:00 36.8 C 84 16 115/76 98 05/29/21 07:18 62 05/29/21 03:28 36.5 C 62 18 108/56 L 96 Laboratory Results Laboratory Results - last 24 hr 05/28/21 05/29/21 05/29/21 19:50 07:03 07:03 WBC 6.54 RBC 2.01 L Hgb 7.7 L Hct 23.7 L MCV 117.9 H MCH 38.3 H MCHC 32.5 RDW Std Deviation 96.9 H RDW Coeff of Geovanni 23.2 H Plt Count 287 MPV 9.8 PT 16.1 H INR 1.6 H Sodium Potassium Chloride Carbon Dioxide Anion Gap BUN Creatinine Est Cr Clr Drug Dosing Est GFR ( Amer) Est GFR (Non-Af Amer) BUN/Creatinine Ratio Glucose Calcium Stool Occult Bld Scrn Negative 05/29/21 07:03 WBC RBC Hgb Hct MCV MCH MCHC RDW Std Deviation RDW Coeff of Geovanni Plt Count MPV PT INR Sodium 141 Potassium 3.2 L D Chloride 107 Carbon Dioxide 26 Anion Gap 9.0 BUN 81 H Creatinine 2.94 H D Est Cr Clr Drug Dosing 19.1 Est GFR ( Amer) 22.3 Est GFR (Non-Af Amer) 19.2 BUN/Creatinine Ratio 27.5 H Glucose 110 H Calcium 8.4 L Stool Occult Bld Scrn
--- NOTE | 2021-05-29 13:32 | Pulmonary Consultation ---
Date of Consultation May 29, 2021 Assessment & Plan (1) Bilateral pleural effusion: Impression: 81-year-old male with history of transudate of pleural effusions now with similar findings. He is not on oxygen but does complain of some shortness of breath with exertion. He is unclear whether he had a benefit after the last thoracentesis or not. Were asked to perform repeat thoracentesis. Recommendations: 1. Bilateral pleural effusions: I discussed with the patient risks and benefits of repeat thoracentesis. There is no suspicion for infection or malignancy easily only reason to perform the procedure would be to try and alleviate symptoms. I did advise the patient that I would not recommend serial thoracentesis as a long-term management strategy for pleural effusions related to his cardiac issues and underlying kidney disease. Would agree with nephrology that palliative care would be highly appropriate in this patient to define goals of therapy. If diuretics and medical management are unsuccessful in long-term management, could consider placement of Pleurx catheter for a palliative procedure but would only consider this if the patient were entering hospice. We will request that nursing stop his heparin at 4 AM. We will plan on repeat ultrasound and chest x-ray and if there is significant enough fluid to tap we will proceed with therapeutic thoracentesis. Feel free to contact us with questions or concerns. History of Present Illness Attending Physician: Chantel Spaulding MD History of Present Illness Asked by hospitalist to assist in evaluation management this patient with bilateral pleural effusions, chronic systolic heart failure, and chronic kidney disease. History is obtained from discussion with the patient as well as review of electronic medical record. This 81-year-old male was admitted to the facility May 15, 2021. He has a complicated medical history which is well delineated in prior notes but most pertinently has a history of an EF of 20 to 25% with grade 2 diastolic dysfunction moderate MR and atrial fibrillation. He presented to the emergency room feeling poorly with lower extremity edema. He has been seen by cardiology and nephrology. He underwent repeat echocardiogram. He is been aggressively diuresed but unfortunately had persistent pleural effusions demonstrated on chest x-ray and chest ultrasound. There was initial consultation of pulmonary with the patient is fully anticoagulated on Coumadin. Coumadin has been discontinued and has been maintained on a heparin infusion. His INR is 1.6. When I assessed the patient. He is breathing comfortably at rest. He is on room air. He is able to lie supine but he states that he does feel short of breath when he gets up and moves around. He had a thoracentesis performed about 2 months ago. Fluid at that point time was consistent with transudate of process. Allergies Allergy/AdvReac Type Severity Reaction Status Date / Time RYLEE Inhibitors AdvReac Intermediate Renal Verified 05/14/21 18:29 Complications Home Medications Medication Instructions Recorded Confirmed Type azelastine 137 mcg (0.1 %) nasal 2 spray INTRANASAL BID 03/11/21 05/14/21 History spray aerosol cholecalciferol (vitamin D3) 25 25 mcg PO DAILY 03/11/21 05/14/21 History mcg (1,000 unit) tablet (Vitamin D3) cyanocobalamin (vitamin B-12) 1,000 mcg PO DAILY 03/11/21 05/14/21 History 1,000 mcg tablet (Vitamin B-12) epoetin abel 40,000 unit/mL 40,000 unit SUBCUT DIRECTED 03/11/21 05/14/21 History injection solution (Procrit) fluticasone propionate 50 1 spray INTRANASAL DAILY 03/11/21 05/14/21 History mcg/actuation nasal spray,suspension levothyroxine 75 mcg tablet 75 mcg PO DAILYBB 03/11/21 05/14/21 History pyridoxine (vitamin B6) 100 mg 100 mg PO BID 03/11/21 05/14/21 History tablet (Vitamin B-6) triamcinolone acetonide 0.1 % 1 applic TOPICAL HS PRN 03/11/21 05/14/21 History topical ointment aspirin 81 mg tablet,delayed 81 mg PO QAM #30 tab 03/20/21 05/14/21 Rx release amiodarone 200 mg tablet 200 mg PO DAILY 05/14/21 05/14/21 History metoprolol succinate 25 mg 25 mg PO DAILY 05/14/21 05/14/21 History tablet,extended release 24 hr torsemide 20 mg tablet 40 mg PO DAILY 05/14/21 05/14/21 History warfarin 2 mg tablet 1 - 2 mg PO UD 05/14/21 05/14/21 History atorvastatin 40 mg tablet 40 mg PO HS 05/16/21 05/16/21 History Patient History Medical History (Updated 05/26/21 @ 19:34 by Chantel Spaulding MD) Anemia due to chronic disease treated with erythropoietin Anemia in CKD (chronic kidney disease) CKD (chronic kidney disease) stage 3, GFR 30-59 ml/min CLL (chronic lymphocytic leukemia) H/O: rheumatic fever HTN (hypertension) LBBB (left bundle branch block) MDS (myelodysplastic syndrome), low grade Nocturnal hypoxemia HAWA (obstructive sleep apnea) Prostate cancer Tobacco use disorder Surgical History H/O uvulectomy S/P tonsillectomy and adenoidectomy Family History Other Family history non-contributory Social History Smoking Status: Former smoker Second Hand Exposure: No; Hx Alcohol Use: No Hx Substance Use: No Preferred Language: Italian Communication Ability: Effective 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 Beliefs That Will Affect Care: None marital status: / Current Living Situation: Other Current Living Situation Comment: Pt lives with girlfriend Zaira [place] How many Children do You have: 4 Other Information That Helps Us Care for You: No Feels Safe at Home: Yes Safety Concerns: Feels Safe At This Time Assistive Devices: Walker Review of Systems Review of Systems: Please refer to hospitalist notes Physical Exam Constitutional: no acute distress Eyes: PERRL, conjunctivae normal, anicteric sclerae ENMT: external ear and nose normal, oropharynx normal Neck: trachea midline, no thyromegaly Respiratory: normal respiratory effort; no respiratory distress, no labored breathing and no retractions Auscultation: + diminished lung sounds (Bases bilateral right greater than left with dullness to percussion); no crackles, no rhonchi and no wheezes Cardiovascular: Rate/Rhythm: regular rate and regular rhythm Heart Sounds: normal S1 and normal S2; no murmur Vessels: no JVD and no carotid bruit Extremities: + edema (1+ pretibial edema) Gastrointestinal (Abdomen): normal bowel sounds, soft, nontender, no hepatosplenomegaly Inspection/Auscultation: abdomen normal to inspection and normal bowel sounds; abdomen not distended Percussion/Palpation: abdomen soft; abdomen nontender, no guarding and abdomen not rigid Neurologic: PERRL, EOMI, accommodation nl, no face palsy, no dysarthria CN's II-XI intact bilaterally and moves all extremities; no focal motor deficits Motor/Sensory: no tremor Results & Data Results & Data ([facility]) Vital Signs (Past 12 Hours) Vital Signs Temp Pulse Pulse Resp BP BP Pulse Ox 05/29/21 12:00 36.7 C 65 18 149/67 H 98 05/29/21 08:00 36.8 C 84 16 115/76 98 05/29/21 07:18 62 05/29/21 03:28 36.5 C 62 18 108/56 L 96 Critical Care Results & Data Vital Signs (Past 12 Hours) Vital Signs Temp Pulse Pulse Resp BP BP Pulse Ox 05/29/21 12:00 36.7 C 65 18 149/67 H 98 05/29/21 08:00 36.8 C 84 16 115/76 98 05/29/21 07:18 62 05/29/21 03:28 36.5 C 62 18 108/56 L 96 Lab & Micro Results (Past 24 Hours) RBC 2.01 M/uL (4.7-6.1) L 05/29/21 WBC 6.54 K/uL (4.8-10.8) 05/29/21 Hgb 7.7 g/dL (14.0-18.0) L 05/29/21 Hct 23.7 % (42-52) L 05/29/21 MCV 117.9 fL (80-100) H 05/29/21 MCH 38.3 pg (25-34) H 05/29/21 MCHC 32.5 g/dL (32-36) 05/29/21 RDW Standard Deviation 96.9 fL (36.4-46.3) H 05/29/21 RDW Coefficient of Variation 23.2 % (11.5-14.5) H 05/29/21 Plt Count 287 K/uL (130-400) 05/29/21 MPV 9.8 fL (7.4-10.4) 05/29/21 Na 141 mmol/L (136-145) 05/29/21 K 3.2 mmol/L (3.5-5.1) L 05/29/21 Cl 107 mmol/L (98-107) 05/29/21 CO2 26 mmol/L (21-32) 05/29/21 Anion Gap 9.0 (3-11) 05/29/21 BUN 81 mg/dl (7-18) H 05/29/21 Creatinine 2.94 mg/dl (0.6-1.4) H 05/29/21 Estimated GFR ( Amer) 22.3 ml/min 05/29/21 Estimated GFR (Non-Af Amer) 19.2 ml/min 05/29/21 BUN/Creatinine Ratio 27.5 (10-20) H 05/29/21 Glu 110 mg/dl (70-99) H 05/29/21 Ca 8.4 mg/dl (8.5-10.1) L 05/29/21 Calcium Level 8.4 mg/dl (8.5-10.1) L 05/29/21 07:03 05/29/21 Prothromb Time International Ratio 1.6 (0.9-1.1) H 05/29/21 07:03 05/29/21 I & O Totals 24 Hours 05/28/21 05/29/21 05/30/21 06:59 06:59 06:59 Intake Total 430.25 / 430.25 300 / 300 Output Total 1150 / 1150 1626 / 1626 225 / 225 Balance -719.75 / -719.75 -1326 / -1326 -225 / -225 Cumulative 05/14/21 15:38 thru 05/29/21 11:57 Intake Total 9670.25 Output Total 83046 Balance -9953.75 RT Ventilator Mngmt (Last Documented) Ventilator Ordered Settings Respiratory Rate 18 05/29/21 12:00 Fraction of Inspired Oxygen 05/15/21 21:00 Ventilator - PT Measurements Respiratory Rate 18 PG Care Time/CCT Total # of Minutes Spent Total Time Spent with Patient: Total time spent is greater than 50% in coordination of care (as documented) at patient's floor/unit and/or counseling patient: Coding Level of Care Code 82369 Initial Inpt Care Lvl 2 Diagnoses Bilateral pleural effusion J90
--- NOTE | 2021-05-29 13:46 | Nephrology Progress Note ---
Date of Service May 29, 2021 Assessment & Plan (1) Acute kidney injury superimposed on chronic kidney disease: Plan: recurrent acute kidney injury on CKD4 due to cardiorenal syndrome. Baseline creatinine of 2.5. Admission creatinine of 3.8 and plateau'd at about 2.6 for several days; creatinine down to 2.9 from 3.3 yesterday. K is low at 3.2. -Continue Bumex 0.5 mg IV 3 times daily -Patient received 40 mEq of potassium. We will add an extra 20 mEq -cont dialysis diet and 1.5L FR -Monitor input output - needs I/O best we can -Daily BMP -daily standing weight: so far 2 this admission; was 81.2 on 05/19; was 78.8 on 05/28 (2) Acute decompensated heart failure: Plan: Patient with a low EF of 25% and pulmonary hypertension. Longer term for OP EP consult mid June, after appropriate medical tx window/optimization -diuretics iv as above Continue fluid limit 1.5 L daily (in general he takes in less than 1 L); continue less than 2 g daily sodium diet -care coordinated >> for possible thoracentesis (3) Anemia due to chronic disease treated with erythropoietin: Plan: Patient received Procrit 20 units. We will continue to monitor and give Procrit as needed Admission and Anticipated Discharge Date Admission Date: May 14, 2021 Subjective Seen in follow-up for acute kidney injury on CKD and CHF. He reports improvement. No shortness of breath. He has a left heel wound. Legs are mildly swollen. He has a large pleural effusion and plan for thoracentesis Review of Systems Review of Systems: All other systems were reviewed and negative except as noted in HPI Physical Exam Physical Exam: General exam: Appears comfortable, no acute distress HEENT: Pupils are equal and reactive to light Neck: No JVD, neck is supple trachea is midline Respiratory system: Reduced breath sounds in the bases bilaterally. Gastrointestinal: Abdomen is soft, non distended, non tender, bowel sounds are present CVS: Regular rate and rhythm. No murmurs, rubs or gallops Musculoskeletal: No joint or muscle tenderness Extremities: Non tender, trace edema, peripheral pulses are present Neuro: Oriented, no tremors, no focal neurological deficits Skin: No rashes Results & Data ([facility]) Vital Signs (Past 12 Hours) Vital Signs Temp Pulse Pulse Resp BP BP Pulse Ox 05/29/21 12:00 36.7 C 65 18 149/67 H 98 05/29/21 08:00 36.8 C 84 16 115/76 98 05/29/21 07:18 62 05/29/21 03:28 36.5 C 62 18 108/56 L 96 Laboratory Results 05/29/21 07:03 05/29/21 07:03 WBC 6.54 RBC 2.01 L MCV 117.9 H MCH 38.3 H MCHC 32.5 RDW Std Deviation 96.9 H RDW Coeff of Geovanni 23.2 H Plt Count 287 MPV 9.8
--- NOTE | 2021-05-29 14:27 | XRay Report ---
SINGLE VIEW CHEST CLINICAL HISTORY: Pleural effusion FINDINGS: An AP, portable, upright chest radiograph is compared to study dated 05/26/2021. The examin ation is degraded by portable technique and apical lordotic positioning. The heart is enlarged noting atherosclerotic calcification of the thoracic aorta. Pulmonary vasculature congestion persists. Ther e are small pleural effusions with bibasilar consolidation. These are unchanged to minimally decrease d in size as compared to previous. No pneumothorax is seen. The skeletal structures are osteopenic. T he bony thorax is grossly intact. IMPRESSION: 1. Cardiomegaly with mild pulmonary vascular congestion. This is similar to previous. 2. Small pleural effusions with bibasilar consolidation. These are unchanged to minimally decreased i n size from 05/26/2021. ACT 112: Negative or not required by law. Electronically signed by: Jameson Melendez M.D. 05/29/2021 2:25 PM
[2021-05-29 18:17] LABS: Partial Thromboplastin Ratio > 5.3
[2021-05-29 18:24] LABS: Partial Thromboplastin Time > 139.0 Seconds (21.0-31.0)
--- NOTE | 2021-05-29 18:24 | Hospitalist Progress Note ---
Date of Service May 29, 2021 Assessment & Plan (1) Acute on chronic HFrEF (heart failure with reduced ejection fraction): (2) Ischemic cardiomyopathy: (3) Pleural effusion: Plan: (1) Acute on chronic HFrEF (heart failure with reduced ejection fraction): (1) Pleural effusion: R (1878 cc)>L (642 cc), 2/2 to above, will continue to hold warfarin 05/26 for preparation of thoracentesis, vitamin K 2.5 mg 05/27, INR daily. INR 1.6, heparin drip started Pulm on board, for thoracentesis tomorrow, to hold heparin at 4 AM. Has underlying ischemic cardiomyopathy with an EF 25% and is wearing a life vest which was given to him on hospital discharge 03/20/21. IV diuretics per nephrology with continued dyspnea on exertion. FR 1.5 L daily. Strict Is and Os. Anthony not feasible d/t recent UTI Continue Toprol XL and aspirin. RYLEE/ARB contraindicated in renal disease. Atorvastatin initially held in LFT elevation 2/2 congestive hepatopathy but this has been restarted. Defer diuretic titration to Cardiology and Nephrology teams (2) Acute kidney injury superimposed on chronic kidney disease: Recent increased diuretic use as outpatient prior to hospitalization. Possible etiology also cardiorenal syndrome per nephro. Baseline creat 2.5. Cont IV diuretics per nephrology. Daily BMP, Cr seems to have stabilized in mid threes. Nephrology having discussion regarding possible dialysis. (3) Ischemic cardiomyopathy: presumed per cardiology -> Lexiscan nuclear stress test demonstrated myocardial scar without superimposed ischemia, no benefit to cardiac cath at this time. Will need OP EP consultation (consideration for MONORAIL CAR OPERATOR capable ICD after 3 months of evidence-based medical therapy (approx 06/26/21). (4) Ventricular tachycardia: maintains life vest. After foot and urine infections are cleared up, plan will be for outpatient EP consultation for consideration of MONORAIL CAR OPERATOR capable ICD. Cardiology team to arrange at discharge. (5) Atrial fibrillation: Per cardiology, two brief episodes of afib noted 05/19 and . Continue amiodarone, Toprol-XL. warfarin held 05/26 for thoracentesis, will follow INR, resume once appropriate. Initiate patient on IV heparin once INR less than 2 to be stopped per pulmonology prior to thoracentesis. (6) Pain of left heel: Recent thrombectomy of his left lower extremity in Mar 2021 after an NSTEMI and bilateral thoracentesis. He is subsequently developed a pressure ulcer that was painful on the left heel. Vascular evaluated and no further interventions n eeded. Cont medical management of peripheral vascular disease. (7) Aortic stenosis: (8) Elevated transaminase level: Likely secondary to congestive hepatopathy, right upper quadrant ultrasound is within normal limits. This is improved and atorvastatin was restarted. (9) Anemia in CKD (chronic kidney disease): Continues on Procrit as outpatient. Hb is stable. (10) UTI (urinary tract infection): 05/20 urine culture positive for E. coli sensitive to cefepime and ceftriaxone. cefuroxime 05/24-05/28 to cefdinir 05/28 for 3 more days. (11) DVT prophylaxis: Therapeutic INR, on warfarin (held), SCDs. Monitor INR, on heparin drip to be held at 4 am on 05/30/21 for thoracentesis tomorrow. Full code Disposition-continue PCU stay pending cardiology clearance. Will need OP EP consultation (consideration for MONORAIL CAR OPERATOR capable ICD after 3 months of evidence-based medical therapy (approx 06/26/21). Admission and Anticipated Discharge Date Admission Date: May 14, 2021 Subjective Patient is lying in bed, on room air, NAD, no new acute events overnight. Patient reports eating okay. Patient is still reports of getting short of breath with movement. Patient denies headache/dizziness/chest pain/palpitation/other review of symptoms. Physical Exam Physical Exam: GENERAL: Alert and oriented x3. NAD, on RA. HEENT: No pallor, no icterus. Pupils equal, round and reactive to light. Oral mucosa moist. NECK: No JVD, no neck masses. HEART: S1 and S2 heard. Regular rate and rhythm. Systolic murmur over aortic area, no gallop. RESPIRATORY SYSTEM: Normal AP diameter. No accessory muscle use. No wheezing, b/l upper lobe crackles. Right greater than left decreased breath sounds noted. ABDOMEN: Soft, bowel sounds present, nontender, no distention. CENTRAL NERVOUS SYSTEM: No facial droop. Speech is clear. Obeys simple commands. Moves extremities. EXTREMITIES: 1+ BLE edema, no erythema seen. Results & Data Results & Data ([facility]) Vital Signs (Past 12 Hours) Vital Signs Temp Pulse Pulse Resp BP Pulse Ox 05/29/21 12:00 36.7 C 65 18 149/67 H 98 05/29/21 08:00 36.8 C 84 16 115/76 98 05/29/21 07:18 62
[2021-05-29 20:58] LABS: Partial Thromboplastin Ratio 1.7
[2021-05-29 21:05] LABS: Partial Thromboplastin Time 45.3 Seconds (21.0-31.0)
[2021-05-29] MEDS: METOPROLOL SUCC 25MG EXT REL TAB PO SCH (21:44)
[2021-05-29] MEDS: CEFDINIR 300 MG CAP PO SCH (21:45)
[2021-05-29] MEDS: DOCUSATE SODIUM/SENNA 50/8.6MG TAB PO SCH (21:47)
[2021-05-30 04:24] LABS: Hematocrit (blood only) 24.2 % (42-52); Hemoglobin 7.7 g/dL (14.0-18.0)
[2021-05-30 04:36] LABS: BUN Creatinine Ratio 31.3 (10-20); Calcium 8.3 mg/dl (8.5-10.1); Creatinine Clr Calc Pharmacy 20.5 ml/min; Est GFR (African American) 24.4 ml/min; Potassium 3.4 mmol/L (3.5-5.1)
[2021-05-30 04:40] LABS: INR 1.7 (0.9-1.1); Partial Thromboplastin Ratio 3.7; Prothrombin Time 16.5 Seconds (9.0-12.0)
[2021-05-30 04:52] LABS: Partial Thromboplastin Time 97.2 Seconds (21.0-31.0)
[2021-05-30] MEDS: LEVOTHYROXINE SODIUM 75 MCG TABLET PO SCH (06:16)
[2021-05-30] MEDS: BUMETANIDE 0.5 MG in SYRINGE 0 ML IV SCH ×3 (06:17→16:57)
[2021-05-30] MEDS: AMIODARONE 200 MG TAB PO SCH (08:25)
[2021-05-30] MEDS: CHOLECALCIFEROL 1,000 UNITS 25 MCG TAB PO SCH (08:25)
[2021-05-30] MEDS: FLUTICASONE PROPIONATE NA SPR 16 GM BTL SCH (08:26)
[2021-05-30] MEDS: PYRIDOXINE HCL 50 MG TAB PO SCH ×2 (08:26→20:23)
[2021-05-30] MEDS: CYANOCOBALAMIN 500 MCG TABLET (VITAMIN B-12) PO SCH (08:26)
[2021-05-30] MEDS: AZELASTINE HCL 0.1% NASAL 200 SPRAYS/27,400 MCG BTL SCH ×2 (08:26→20:22)
[2021-05-30] MEDS: ATORVASTATIN 40 MG TAB PO SCH (08:26)
[2021-05-30] MEDS: ASPIRIN 81 MG ECTAB PO SCH (08:59)
--- NOTE | 2021-05-30 11:37 | Pulmonology Progress Note ---
Date of Service May 30, 2021 Assessment & Plan (1) Bilateral pleural effusion: Plan: Impression: 81-year-old male with history of transudate of pleural effusions now with similar findings. He is not on oxygen but does complain of some shortness of breath with exertion. He is unclear whether he had a benefit after the last thoracentesis or not. Were asked to perform repeat thoracentesis. Recommendations: 1. Bilateral pleural effusions: Patient will undergo ultrasound-guided catheter thoracentesis unilaterally today. Will reassess as to whether or not the patient feels any symptomatic improvement with drainage of these effusions. If he does not experience clinical benefit, would not recommend any additional thoracentesis. Again serial thoracentesis is not a great long-term management strategy. If the patient wishes to pursue palliative approach, consideration for palliative placement of a Pleurx catheter may be appropriate. As the fluid was previously transudate of, will likely not resend unless the appearance is suggestive of an alternative etiology. Can restart heparin in 4 hours. Feel free to contact us with questions or concerns. We will sign off after the thoracentesis is completed Admission and Anticipated Discharge Date Admission Date: May 14, 2021 Subjective Patient seen and examined. EMR reviewed. He feels about the same. He is not really been walking so cannot comment on whether or not he is having any shortness of breath. He remains on room air. His heparin has been off since 4:00 in the morning. Physical Exam Constitutional: no acute distress Eyes: PERRL, conjunctivae normal, anicteric sclerae ENMT: external ear and nose normal, oropharynx normal Neck: trachea midline, no thyromegaly Respiratory: normal respiratory effort; no respiratory distress, no labored breathing and no retractions Auscultation: + diminished lung sounds (Bases bilateral right greater than left with dullness to percussion); no crackles, no rhonchi and no wheezes Cardiovascular: Rate/Rhythm: regular rate and regular rhythm Heart Sounds: normal S1 and normal S2; no murmur Vessels: no JVD and no carotid bruit Extremities: + edema (1+ pretibial edema) Gastrointestinal (Abdomen): normal bowel sounds, soft, nontender, no hepatosplenomegaly Inspection/Auscultation: abdomen normal to inspection and normal bowel sounds; abdomen not distended Percussion/Palpation: abdomen soft; abdomen nontender, no guarding and abdomen not rigid Neurologic: PERRL, EOMI, accommodation nl, no face palsy, no dysarthria CN's II-XI intact bilaterally and moves all extremities; no focal motor deficits Motor/Sensory: no tremor Results & Data Results & Data ([facility]) Vital Signs (Past 12 Hours) Vital Signs Temp Pulse Pulse Resp BP BP Pulse Ox 05/30/21 07:32 36.3 C L 59 L 18 99/57 L 97 05/30/21 07:30 60 05/30/21 06:15 102/58 L 05/30/21 02:53 36.6 C 60 16 105/64 91 05/29/21 23:58 36.3 C L 65 16 100/60 95 Laboratory Results 05/30/21 03:43 05/30/21 03:43 Diagnostic Findings Chest x-ray from yesterday was reviewed. Demonstrates stable bilateral effusions. PG Care Time/CCT Total # of Minutes Spent Total Time Spent with Patient: Total time spent is greater than 50% in coordination of care (as documented) at patient's floor/unit and/or counseling patient: Coding Level of Care Code 63956 Subseq Hosp Care Lvl 2 Diagnoses Bilateral pleural effusion J90
--- NOTE | 2021-05-30 11:46 | Procedure Note ---
Procedure Note Date of Service May 30, 2021 Note Procedure: Ultrasound assisted thoracentesis Attending: Dr. Montague APC: Curtis HODGSON ([facility])- Direct Supervision by Dr. Montague Indication: Pleural Effusion Anesthesia: X Lidocaine 1% [x] Written consent was obtained, signed, witnessed, and on the chart per attending providers. Consent was obtained by Dr. Montague Prior to procedure, labs reviewed, Heparin has been off since 0430 this morning. Chest x-ray films were reviewed by myself and demonstrated bilateral pleural effusions. Right side was greater than left side, so the right side was targeted. A time-out was completed verifying correct patient, procedure, site, positioning, and equipment if applicable. Utilizing bedside ultrasound, chest wall was evaluated for location for optimal drainage as well as location of the diaphragm. Location between the ribs was marked on the skin using gentle pressure. The right sided chest wall was prepped with chlorhexidine and draped in the typical sterile fashion. 8 mL of 1% Lidocaine without epinephrine was used to anesthetize the skin down to the dorsal surface of the rib, Lidocaine was injected into the pleural space for increased anesthetization, as noted by pleural fluid. A stab incision was made with 11 blade scalpel. Introducer needle on syringe was inserted in perpendicular fashion taking care to ride just above the dorsal surface of the rib. Entry into the pleural space was heralded by light yellow pleural fluid return into the syringe while under gentle aspiration. The catheter was inserted over the needle apratus without resistance and the introducer needle was subsequently removed. Approximately 2200ml of pleural fluid was removed. Patient tolerated the procedure well without any immediate complications. Ultrasound was performed following the procedure which revealed pleural slide and reduction in the pleural fluid. No samples were sent. Blood Loss: Minimal Complications: None X Post procedure Chest X-ray completed without any PTX and with decrease in size of his pleural effusion. Coding
--- NOTE | 2021-05-30 12:07 | XRay Report ---
XR chest 1V portable HISTORY: 81 years-old Male s/p thoracentesis on right side follow-up study in a patient with pleural effusions COMPARISON: Chest radiograph 05/29/2021 TECHNIQUE: AP view of the chest FINDINGS: Cardiac silhouette is enlarged, unchanged. Pulmonary vascular congestion. Trace right pleural effusio n has decreased in size from prior. Mild bibasilar densities. No pneumothorax. Small left pleural eff usion. Degenerative changes of the shoulders and spine. IMPRESSION: Trace right pleural effusion has decreased in size status post thoracentesis. No postproc edural pneumothorax identified. ACT 112: Negative or not required by law. The above report was generated using voice recognition software. It may contain grammatical, syntax o r spelling errors. Electronically signed by: Shayne Moran M.D. 05/30/2021 12:05 PM
[2021-05-30 12:21] LABS: INR 1.6 (0.9-1.1); Prothrombin Time 15.3 Seconds (9.0-12.0)
--- NOTE | 2021-05-30 12:44 | Nephrology Progress Note ---
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 Baseline creatinine of 2.5. Admission creatinine of 3.8 and plateau'd at about 2.6 for several days; creatinine down to 2.9 from 3.3 yesterday. K is low at 3.2. -Continue Bumex 0.5 mg IV 3 times daily -Will give 40 mEq of potassium. -cont dialysis diet and 1.5L FR -Monitor input output - needs I/O best we can -Daily BMP -daily standing weight: so far 2 this admission; was 81.2 on 05/19; was 78.8 on 05/28 -Pateitn likely needs to start planning for dialysis for volume control. Follows with Dr. Keyes (2) Acute decompensated heart failure: Plan: Patient with a low EF of 25% and pulmonary hypertension. Longer term for OP EP consult mid June, after appropriate medical tx window/optimization -diuretics iv as above Continue fluid limit 1.5 L daily (in general he takes in less than 1 L); continue less than 2 g daily sodium diet -care coordinated >> for possible thoracentesis (3) Anemia due to chronic disease treated with erythropoietin: Plan: Patient received Procrit 20k units. We will continue to monitor and give Procrit as needed Admission and Anticipated Discharge Date Admission Date: May 14, 2021 Subjective Seen for CKD and CHF. he feels better. No SOB. had right thoracentesis this morning for 2.2 litres. Review of Systems Review of Systems: All other systems were reviewed and negative except as noted in HPI Physical Exam Physical Exam: General exam: Appears comfortable, no acute distress HEENT: Pupils are equal and reactive to light Neck: No JVD, neck is supple trachea is midline Respiratory system: Reduced breath sounds in the bases bilaterally. Gastrointestinal: Abdomen is soft, non distended, non tender, bowel sounds are present CVS: Regular rate and rhythm. No murmurs, rubs or gallops Musculoskeletal: No joint or muscle tenderness Extremities: Non tender, trace edema, peripheral pulses are present Neuro: Oriented, no tremors, no focal neurological deficits Skin: No rashes Results & Data ([facility]) Vital Signs (Past 12 Hours) Vital Signs Temp Pulse Pulse Resp BP BP Pulse Ox 05/30/21 11:53 36.3 C L 56 L 18 101/58 L 96 05/30/21 07:32 36.3 C L 59 L 18 99/57 L 97 05/30/21 07:30 60 05/30/21 06:15 102/58 L 05/30/21 02:53 36.6 C 60 16 105/64 91 Laboratory Results 05/30/21 03:43
[2021-05-30] MEDS ORDERED: POTASSIUM CHLORIDE 20 MEQ/15 ML UDC PO STA (12:45)
--- NOTE | 2021-05-30 12:50 | Cardiology Progress Note ---
Date of Service May 30, 2021 Assessment & Plan (1) Acute on chronic HFrEF (heart failure with reduced ejection fraction): (2) Ischemic cardiomyopathy: Plan: Lexiscan nuclear stress test demonstrates myocardial scar without superimposed ischemia. No benefit to cardiac cath at this time. (3) Atrial fibrillation: (4) UTI (urinary tract infection): Plan: Patient is demonstrated gradual improvement through diuresis and now thoracentesis. Medications being optimized though cardiorenal syndrome present with marginal renal function Diuretics already ordered We will reduce metoprolol succinate slightly Discussed long-term management of congestive heart failure CHF instructions to be provided Admission and Anticipated Discharge Date Admission Date: May 14, 2021 Subjective Patient was seen and examined, chart, medications, telemetry reviewed. Patient without distinct complaints other than fatigue and length of hospitalization. Patient seen both prior and after thoracentesis with greater than 2200 cc removed from right chest patient tolerated well. Review of Systems Review of Systems: All systems reviewed & are unremarkable except as noted in Subjective Physical Exam Constitutional: no acute distress Eyes: PERRL, conjunctivae normal, anicteric sclerae ENMT: external ear and nose normal, oropharynx normal Neck: trachea midline, no thyromegaly Respiratory: normal respiratory effort; no respiratory distress, no labored breathing and no retractions Auscultation: + diminished lung sounds (Bases bilateral right greater than left with dullness to percussion); no crackles, no rhonchi and no wheezes Cardiovascular: Rate/Rhythm: regular rate and regular rhythm Heart Sounds: normal S1 and normal S2; no murmur Vessels: no JVD and no carotid bruit Extremities: + edema (1+ pretibial edema) Gastrointestinal (Abdomen): normal bowel sounds, soft, nontender, no hepatosplenomegaly Inspection/Auscultation: abdomen normal to inspection and normal bowel sounds; abdomen not distended Percussion/Palpation: abdomen soft; abdomen nontender, no guarding and abdomen not rigid Neurologic: PERRL, EOMI, accommodation nl, no face palsy, no dysarthria CN's II-XI intact bilaterally and moves all extremities; no focal motor deficits Motor/Sensory: no tremor Results & Data ([facility]) Vital Signs (Past 12 Hours) Vital Signs Temp Pulse Pulse Resp BP BP Pulse Ox 05/30/21 11:53 36.3 C L 56 L 18 101/58 L 96 05/30/21 07:32 36.3 C L 59 L 18 99/57 L 97 05/30/21 07:30 60 05/30/21 06:15 102/58 L 05/30/21 02:53 36.6 C 60 16 105/64 91 Laboratory Results Laboratory Results - last 24 hr 05/29/21 05/29/21 05/30/21 17:51 20:28 03:43 Hgb Hct PT 16.5 H INR 1.7 H APTT > 139.0 H* 45.3 H* 97.2 H* PTT Ratio > 5.3 1.7 3.7 Sodium Potassium Chloride Carbon Dioxide Anion Gap BUN Creatinine Est Cr Clr Drug Dosing Est GFR ( Amer) Est GFR (Non-Af Amer) BUN/Creatinine Ratio Glucose Calcium 05/30/21 05/30/21 05/30/21 03:43 03:43 12:04 Hgb 7.7 L Hct 24.2 L PT 15.3 H INR 1.6 H APTT PTT Ratio Sodium 140 Potassium 3.4 L Chloride 106 Carbon Dioxide 25 Anion Gap 9.0 BUN 85 H Creatinine 2.73 H Est Cr Clr Drug Dosing 20.5 Est GFR ( Amer) 24.4 Est GFR (Non-Af Amer) 21.0 BUN/Creatinine Ratio 31.3 H Glucose 111 H Calcium 8.3 L
[2021-05-30] MEDS: Heparin IV Adult Wt-Based Standard *NO* Bolus Protocol IV SCH ×3 (14:52→15:12)
[2021-05-30] MEDS ORDERED: Nursing to Pharmacy Communication SCH (15:00)
[2021-05-30 16:36] LABS: Partial Thromboplastin Ratio 1.3; Partial Thromboplastin Time 33.9 Seconds (21.0-31.0)
[2021-05-30] MEDS: HEPARIN SODIUM/DEXTROSE 25,000 UNITS/500 ML BAG IV SCH (16:54)
[2021-05-30] MEDS: WARFARIN SOD 2 MG TAB PO SCH (17:38)
--- NOTE | 2021-05-30 19:00 | Hospitalist Progress Note ---
Date of Service May 30, 2021 Assessment & Plan (1) Acute on chronic HFrEF (heart failure with reduced ejection fraction): (2) Ischemic cardiomyopathy: (3) Pleural effusion: Plan: (1) Acute on chronic HFrEF (heart failure with reduced ejection fraction): (1) Pleural effusion: R (1878 cc)>L (642 cc), 2/2 to above, s/p Rt thoracentesis 05/30 (2.2L out), Warfarin resumed 05/30, with bridging heparin. PT/INR daily, DC heparin when INR >1.9. Has underlying ischemic cardiomyopathy with an EF 25% and is wearing a life vest which was given to him on hospital discharge 03/20/21. IV diuretics per nephrology with continued dyspnea on exertion. FR 1.5 L daily. Strict Is and Os. Anthony not feasible d/t recent UTI Continue Toprol XL and aspirin. RYLEE/ARB contraindicated in renal disease. Atorvastatin initially held in LFT elevation 2/2 congestive hepatopathy but this has been restarted. Defer diuretic titration to Cardiology and Nephrology teams (2) Acute kidney injury superimposed on chronic kidney disease: Recent increased diuretic use as outpatient prior to hospitalization. Possible etiology also cardiorenal syndrome per nephro. Baseline creat 2.5. Cont IV diuretics per nephrology. Daily BMP, Cr seems to be improving slowly. Nephrology having discussion regarding possible dialysis. Per Nephro, Pt likely needs to start planning for dialysis for volume control. (3) Ischemic cardiomyopathy: presumed per cardiology -> Lexiscan nuclear stress test demonstrated myocardial scar without superimposed ischemia, no benefit to cardiac cath at this time. Will need OP EP consultation (consideration for S[employer]IOR HEALTH CONSULTANT capable ICD after 3 months of evidence-based medical therapy (approx 06/26/21). (4) Ventricular tachycardia: maintains life vest. After foot and urine infections are cleared up, plan will be for outpatient EP consultation for consideration of SENIOR HEALTH CONSULTANT capable ICD. Cardiology team to arrange at discharge. (5) Atrial fibrillation: Per cardiology, two brief episodes of afib noted 05/19 and . Continue amiodarone, Toprol-XL. Warfarin resumed 05/30; heparin drip as bridge--to stop when INR >1.9, daily pt/inr (6) Pain of left heel: Recent thrombectomy of his left lower extremity in Mar 2021 after an NSTEMI and bilateral thoracentesis. He is subsequently developed a pressure ulcer that was painful on the left heel. Vascular evaluated and no further interventions needed. Cont medical management of peripheral vascular disease. (7) Aortic stenosis: (8) Elevated transaminase level: Likely secondary to congestive hepatopathy, right upper quadrant ultrasound is within normal limits. This is improved and atorvastatin was restarted. (9) Anemia in CKD (chronic kidney disease): Continues on Procrit as outpatient. Hb is stable. (10) UTI (urinary tract infection): 05/20 urine culture positive for E. coli sensitive to cefepime and ceftriaxone. cefuroxime 05/24-05/28 to cefdinir 05/28 for 3 more days. (11) DVT prophylaxis: Warfarin resumed, currently on bridgning heparin. Full code Disposition-continue PCU stay pending cardiology clearance. Will need OP EP consultation (consideration for SENIOR HEALTH CONSULTANT capable ICD after 3 months of evidence-based medical therapy (approx 06/26/21). 05/30: Talked with Pt and his son (primary contact) about current status (need for dialysis, recurrent pleural effusion needing hospitalization and poor heart function), plan of care and code status/living will. They wouldn't want to explore palliative option now. Pt's son stated he will provide copy of living will to the hospital, will discuss about possibility of placing palliative pleurex catheter with patient after discussion with Cardio, and for now patient/his son wants Patient to be full code. Admission and Anticipated Discharge Date Admission Date: May 14, 2021 Subjective Patient was seen and examined at the bedside, on room air, NAD, no new acute events overnight. Patient continues to complain of shortness of breath with movement. Patient denies fever/headache/chills/chest pain/palpitation/other review of symptoms. Patient underwent thoracentesis today, 2200 cc removed from right chest, patient feeling better afterwards. Physical Exam Physical Exam: GENERAL: Alert and oriented x3. NAD, on RA. HEENT: No pallor, no icterus. Pupils equal, round and reactive to light. Oral mucosa moist. NECK: No JVD, no neck masses. HEART: S1 and S2 heard. Regular rate and rhythm. Systolic murmur over aortic area, no gallop. RESPIRATORY SYSTEM: Normal AP diameter. No accessory muscle use. No wheezing, b/l upper lobe crackles. Right greater than left decreased breath sounds noted. ABDOMEN: Soft, bowel sounds present, nontender, no distention. CENTRAL NERVOUS SYSTEM: No facial droop. Speech is clear. Obeys simple commands. Moves extremities. EXTREMITIES: 1+ BLE edema, no erythema seen. Results & Data Results & Data ([facility]) Vital Signs (Past 12 Hours) Vital Signs Temp Pulse Pulse Resp BP Pulse Ox 05/30/21 15:43 59 L 05/30/21 15:33 36.6 C 62 17 107/67 92 05/30/21 11:53 36.3 C L 56 L 18 101/58 L 96 05/30/21 07:32 36.3 C L 59 L 18 99/57 L 97 05/30/21 07:30 60
[2021-05-30] MEDS: CEFDINIR 300 MG CAP PO SCH (20:22)
[2021-05-30] MEDS: DOCUSATE SODIUM/SENNA 50/8.6MG TAB PO SCH (20:23)
[2021-05-30] MEDS: METOPROLOL SUCC 25MG EXT REL TAB PO SCH (20:23)
[2021-05-30 23:55] LABS: Partial Thromboplastin Ratio 2.9
[2021-05-31 00:07] LABS: Partial Thromboplastin Time 76.1 Seconds (21.0-31.0)
[2021-05-31] MEDS: LEVOTHYROXINE SODIUM 75 MCG TABLET PO SCH (05:35)
[2021-05-31] MEDS: BUMETANIDE 0.5 MG in SYRINGE 0 ML IV SCH (06:43)
[2021-05-31 07:58] LABS: INR 1.5 (0.9-1.1); Partial Thromboplastin Ratio 3.7; Prothrombin Time 14.7 Seconds (9.0-12.0)
[2021-05-31 08:08] LABS: BUN Creatinine Ratio 32.1 (10-20); Calcium 8.1 mg/dl (8.5-10.1); Est GFR (African American) 27.9 ml/min; Est GFR (Non-African American) 24.1 ml/min; Potassium 3.5 mmol/L (3.5-5.1)
[2021-05-31] MEDS: ASPIRIN 81 MG ECTAB PO SCH (08:09)
[2021-05-31] MEDS: AMIODARONE 200 MG TAB PO SCH (08:09)
[2021-05-31] MEDS: ATORVASTATIN 40 MG TAB PO SCH (08:09)
[2021-05-31] MEDS: AZELASTINE HCL 0.1% NASAL 200 SPRAYS/27,400 MCG BTL SCH ×2 (08:10→19:39)
[2021-05-31] MEDS: FLUTICASONE PROPIONATE NA SPR 16 GM BTL SCH (08:10)
[2021-05-31] MEDS: CHOLECALCIFEROL 1,000 UNITS 25 MCG TAB PO SCH (08:10)
[2021-05-31] MEDS: PYRIDOXINE HCL 50 MG TAB PO SCH ×2 (08:10→19:43)
[2021-05-31] MEDS: CYANOCOBALAMIN 500 MCG TABLET (VITAMIN B-12) PO SCH (08:10)
[2021-05-31 08:15] LABS: Partial Thromboplastin Time 96.1 Seconds (21.0-31.0)
[2021-05-31] MEDS ORDERED: POTASSIUM CHLORIDE CRTAB 20 MEQ TABCR PO STA (09:25)
--- NOTE | 2021-05-31 09:58 | Nephrology Progress Note ---
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 Baseline creatinine of 2.5. Admission creatinine of 3.8 and plateau'd at about 2.6 for several days; creatinine down today. K is low -Continue iv Bumex. Can have higher dose than he is getting now. -Continue replacement of potassium. -cont dialysis diet and 1.5L FR -Monitor input output - needs I/O best we can -Daily BMP --Patient likely needs to start planning for dialysis for volume control. Follows with Dr. Keyes (2) Acute decompensated heart failure: Plan: Patient with a low EF of 25% and pulmonary hypertension. Longer term for OP EP consult mid June, after appropriate medical tx window/optimization -diuretics iv as above for inpatient. He needs lot higher dose as outpt. Seems was doing better with torsemide 40 bid but says felt " bad" on that dose but he needs a higher dose Continue fluid limit 1.5 L daily (in general he takes in less than 1 L); continue less than 2 g daily sodium diet (3) Anemia due to chronic disease treated with erythropoietin: Plan: Patient received Procrit 20k units. We will continue to monitor and give Procrit as needed Subjective Seen for CKD and CHF. Says he feels better. No SOB. had right thoracentesis yesterday. Review of Systems Review of Systems: All other systems were reviewed and negative except as noted in HPI Physical Exam Physical Exam: General exam: Appears comfortable, no acute distress HEENT: Pupils are equal and reactive to light Neck: No JVD, neck is supple trachea is midline Respiratory system: Reduced breath sounds in the bases bilaterally. Gastrointestinal: Abdomen is soft, non distended, non tender, bowel sounds are present CVS: Regular rate and rhythm. No murmurs, rubs or gallops Musculoskeletal: No joint or muscle tenderness Extremities: Non tender, trace edema, peripheral pulses are present Neuro: Oriented, no tremors, no focal neurological deficits Skin: No rashes Results & Data ([facility]) Vital Signs (Past 12 Hours) Vital Signs Temp Pulse Resp BP BP Pulse Ox 05/31/21 05:00 36.4 C L 63 20 109/69 97 05/31/21 00:18 36.6 C 66 16 105/64 95
--- NOTE | 2021-05-31 10:57 | Palliative Care Consultation ---
Date of Consultation May 31, 2021 Assessment & Plan (1) Palliative care encounter: 81yo male with HFrEF, recurrent pleural effusion, ischemic cardiomyopathy, CKD, ventricular tachycardia, atrial fibrillation, aortic stenosis, T-cell lymphoma s/p chemotherapy, myelodysplastic syndrome, and anemia who presented to [facility] [place] on 05/14/2021 with [id number] CHF exacerbation, recurrent pleural effusions, and worsening CKD approaching ESRD. Palliative care was consulted regarding clarification of patient's code status in addition to goals of care. Prior to meeting with patient, I spoke with Dr. Velasquez ([facility]) regarding potential palliative pleurex catheter placement. Dr. Velasquez feels that patient still has a variety of other treatment options to exhaust before pleurex catheter placement should be considered. Patient discussion: I met with patient at bedside this morning. Patient notes his breathing is far better than yesterday and complains only of very mild back pain at the site of yesterday's thoracentesis. We first discussed code status at length; patient reports he would like to be FULL CODE despite multiple severe comorbidities resulting in heroic efforts likely being futile. Patient voiced a clear understanding of this. I then reviewed the role of palliative care and relayed the conversation I had just had with Dr. Velasquez. Patient voices that he would like to exhaust other options (including dialysis and potential placement of MANAGER MEMBERSHIP-compatible ICD after failing 3 months of medical treatment) prior to considering palliative pleurex catheter placement. However, patient notes that he is interested with getting set up with outpatient palliative care ([facility]). Family discussion: after speaking with patient, I spoke on the phone with patient's son, Grey. I described the role of the palliative medicine team, and summarized the conversation I had with patient. Grey agreed with patient's preference to remain FULL CODE. I also summarized the conversation I had with cardiology. Patient's son is in agreement with holding off on pleurex catheter placement or other palliative measures at this time, with the exception of establishing care with outpatient palliative care as above. Case management: because patient and patient's son are interested in establishing care with outpatient palliative care ([facility]), I've notified Albert Ramos who is assisting with setting up an initial appointment. Appreciate ongoing assistance. History of Present Illness Attending Physician: Chantel Spaulding MD History of Present Illness 81yo male with HFrEF, recurrent pleural effusion (thoracentesis 02/2021 and 05/30/2021), ischemic cardiomyopathy, ESRD, ventricular tachycardia (has life vest), atrial fibrillation, aortic stenosis, T-cell lymphoma s/p chemotherapy, myelodysplastic syndrome, and anemia who presented to [facility] [place] on 05/14/2021 with worsening MCCONNELL, LE edema, and weakness. Symptoms were felt to be secondary to [id number] CHF exacerbation. Patient has been seen by cardiology and nephrology throughout this admission. Patient had been managed medically until 05/30/2021 when worsening symptoms led to thoracentesis which removed 2200mL of presumed-transudative fluid. The option of a palliative pleurex catheter had been proposed if patient's pleural effusion continues to reaccumulate. Palliative care was consulted regarding clarification of patient's code status in addition to goals of care. Allergies Allergy/AdvReac Type Severity Reaction Status Date / Time RYLEE Inhibitors AdvReac Intermediate Renal Verified 05/14/21 18:29 Complications Home Medications Medication Instructions Recorded Confirmed Type azelastine 137 mcg (0.1 %) nasal 2 spray INTRANASAL BID 03/11/21 05/14/21 History spray aerosol cholecalciferol (vitamin D3) 25 25 mcg PO DAILY 03/11/21 05/14/21 History mcg (1,000 unit) tablet (Vitamin D3) cyanocobalamin (vitamin B-12) 1,000 mcg PO DAILY 03/11/21 05/14/21 History 1,000 mcg tablet (Vitamin B-12) epoetin abel 40,000 unit/mL 40,000 unit SUBCUT DIRECTED 03/11/21 05/14/21 History injection solution (Procrit) fluticasone propionate 50 1 spray INTRANASAL DAILY 03/11/21 05/14/21 History mcg/actuation nasal spray,suspension levothyroxine 75 mcg tablet 75 mcg PO DAILYBB 03/11/21 05/14/21 History pyridoxine (vitamin B6) 100 mg 100 mg PO BID 03/11/21 05/14/21 History tablet (Vitamin B-6) triamcinolone acetonide 0.1 % 1 applic TOPICAL HS PRN 03/11/21 05/14/21 History topical ointment aspirin 81 mg tablet,delayed 81 mg PO QAM #30 tab 03/20/21 05/14/21 Rx release amiodarone 200 mg tablet 200 mg PO DAILY 05/14/21 05/14/21 History metoprolol succinate 25 mg 25 mg PO DAILY 05/14/21 05/14/21 History tablet,extended release 24 hr torsemide 20 mg tablet 40 mg PO DAILY 05/14/21 05/14/21 History warfarin 2 mg tablet 1 - 2 mg PO UD 05/14/21 05/14/21 History atorvastatin 40 mg tablet 40 mg PO HS 05/16/21 05/16/21 History Patient History Medical History (Updated 05/31/21 @ 11:06 by Kevin Castillo MD) Anemia due to chronic disease treated with erythropoietin Anemia in CKD (chronic kidney disease) CKD (chronic kidney disease) stage 3, GFR 30-59 ml/min CLL (chronic lymphocytic leukemia) H/O: rheumatic fever HTN (hypertension) LBBB (left bundle branch block) MDS (myelodysplastic syndrome), low grade Nocturnal hypoxemia HAWA (obstructive sleep apnea) Prostate cancer Tobacco use disorder Surgical History H/O uvulectomy S/P tonsillectomy and adenoidectomy Family History Other Family history non-contributory Social History Smoking Status: Former smoker Second Hand Exposure: No; Hx Alcohol Use: No Hx Substance Use: No Preferred Language: Arabic Communication Ability: Effective Luncheonette Operator Required: No Beliefs That Will Affect Care: None marital status: / Current Living Situation: Other Current Living Situation Comment: Pt lives with girlfriend Zaira Toledo How many Children do You have: 4 Other Information That Helps Us Care for You: No Feels Safe at Home: Yes Safety Concerns: Feels Safe At This Time Assistive Devices: Glasses Review of Systems Review of Systems: Patient denies CP, SOB, abdominal pain, nausea, vomiting, lightheadedness, dizziness, and diarrhea. Palliative performance scale score: 60% Physical Exam Physical Exam: Constitutional: well-appearing elderly man sleeping comfortably in bed, arousable HEENT: NCAT, MMM CV: regular rhythm, systolic crescendo-decrescendo murmur appreciated, extremities well-perfused, 1+ pitting edema BL Resp: breath sounds distant at bases bilaterally, otherwise clear Neuro: alert, oriented, no focal neurologic deficit appreciated Psych: cooperative, pleasant, appropriate rate/volume/quantity of speech Results & Data ([facility]) Vital Signs (Past 12 Hours) Vital Signs Temp Pulse Resp BP BP Pulse Ox 05/31/21 05:00 36.4 C L 63 20 109/69 97 05/31/21 00:18 36.6 C 66 16 105/64 95 PG Care Time/CCT Total # of Minutes Spent Total Time Spent with Patient: Total time spent is greater than 50% in coordination of care (as documented) at patient's floor/unit and/or counseling patient: Coding Level of Care Code None Diagnoses Palliative care encounter Z51.5 Time Spent (min) 50 Resident Activity Tracking Resident Involvement: Resident Care Provided Care Provided: Adult Hospital Medicine
--- NOTE | 2021-05-31 12:08 | Pulmonology Progress Note ---
Date of Service May 31, 2021 Assessment & Plan (1) Bilateral pleural effusion: Plan: Impression: 81-year-old male with history of transudate of pleural effusions now with similar findings. He is not on oxygen but does complain of some shortness of breath with exertion. Patient states that he had some improvement to his breathing after thoracentesis yesterday. We were asked to perform repeat thoracentesis on left side. Discussed with Dr. Velasquez this morning who feels that this will be beneficial in discharging the patient. Recommendations: 1. Bilateral pleural effusions: * Patient underwent thoracentesis yesterday and tolerated the procedure well. R epeat chest x-ray shows persistent effusion on the left. * Bedside ultrasound shows nice pocket on left for approach. * Heparin drip stopped this morning at 07:40. We will wait 6 hours and perform repeat thoracentesis on the left side later today. * Dr. Shepherd will perform the procedure later today. Feel free to contact us with questions or concerns. We will sign off after the thoracentesis is completed Admission and Anticipated Discharge Date Admission Date: May 14, 2021 Supervising Physician Co-Signing Physician Notes I saw and evaluated the patient with Jameson Dixon, and agree with findings and plan as documented in the note. Patient seen and examined at bedside. No acute distress, no adverse events overnight. Patient had thoracentesis done on the right side on 05/30/2020 with removal of 2 L of serous fluid Prior to that patient had thoracentesis done back March 12, 2021. And he felt significantly better at that time. Cytology was negative at that time On asking if the patient felt any benefit after removing the pleural fluid he said he felt better for a moment but that he was feeling the same Patient is willing to have another thoracentesis done on the left side today. 1 L of serous fluid was removed from the left side. Chest x-ray post thoracentesis did not show any signs of pneumothorax. Thing to notice is that patient is again developing pleural effusion on the right side. I do recommend changes in the medical management especially regarding diuresis. Patient's underlying CKD, hypoalbuminemia on top of his underlying heart failure is playing a role in his pleural effusion Consideration of Pleurx catheter on the right side could be thought off in future if the patient needs thoracentesis on a monthly basis. No further recommendation from pulmonary perspective. We will sign off. Please call directly with any questions Please note the above document was generated using voice recognition software. It may contain grammatical, syntax or spelling errors.Any formal questions or concerns about the content, text or information contained within the body of this dictation should be directly addressed to the provider for clarification. Subjective Attending: Dr. Shepherd Patient is an 81-year-old male with severe heart failure requiring life vest at home. He had bilateral pleural effusions. These were refractory to diuresis secondary to worsening renal failure. Patient underwent right thoracentesis yesterday without complication. At this time, heparin drip has been stopped as of this morning. Patient is willing to have thoracentesis on the right side. Bedside ultrasound performed and there is a good pocket. Will wait 6 hours from heparin being stopped and perform thoracentesis later today. Consent obtained from patient at the direction of Dr. Shepherd and placed on the chart. Patient is in no respiratory distress. He is breathing through his nose with his mouth closed. He is oxygenating well on room air. He has no chest pain or tightness. No pleuritic pain. No difficulty from thoracentesis performed yes terday. He has no acute pulmonary complaints. Review of Systems Review of Systems: All systems reviewed & are unremarkable except as noted in Subjective Physical Exam Physical Exam: GENERAL : No acute distress EYES: No icterus, gaze conjugate NOSE: No evidence of epistaxis MOUTH: No lesions or candidiasis NECK: Supple LUNGS: Decreased breath sounds on the right side. Otherwise no adventitious breath sounds. No appreciation of rales or rhonchi. HEART: Regular, rate controlled ABDOMEN: Soft, NT, ND, BS Present EXTREMITIES: No LE edema, pedal pulses intact. Yellow socks in place. GORDON hose in place. NEURO: A&OX3 Results & Data Results & Data ([facility]) Vital Signs (Past 12 Hours) Vital Signs Temp Pulse Resp BP BP Pulse Ox 05/31/21 05:00 36.4 C L 63 20 109/69 97 05/31/21 00:18 36.6 C 66 16 105/64 95 Laboratory Results 05/30/21 03:43 05/31/21 07:24 Laboratory Tests 05/29/21 07:03 Plt Count 287 Plt Count 287 K/uL (130-400) 05/29/21 07:03 INR 1.5 (0.9-1.1) H 05/31/21 07:24 Diagnostic Findings XR chest 1V portable HISTORY: 81 years-old Male s/p thoracentesis on right side follow-up study in a patient with pleural effusions COMPARISON: Chest radiograph 05/29/2021 TECHNIQUE: AP view of the chest FINDINGS: Cardiac silhouette is enlarged, unchanged. Pulmonary vascular congestion. Trace right pleural effusion has decreased in size from prior. Mild bibasilar densities. No pneumothorax. Small left pleural effusion. Degenerative changes of the shoulders and spine. IMPRESSION: Trace right pleural effusion has decreased in size status post thoracentesis. No postprocedural pneumothorax identified. ACT 112: Negative or not required by law. The above report was generated using voice recognition software. It may contain grammatical, syntax or spelling errors. Electronically signed by: Shayne Moran M.D. 05/30/2021 12:05 PM PG Care Time/CCT Total # of Minutes Spent Total Time Spent with Patient: Total time spent is greater than 50% in coordination of care (as documented) at patient's floor/unit and/or counseling patient: Coding Level of Care Code 35943 Subseq Hosp Care Lvl 2 Diagnoses Bilateral pleural effusion J90 Time Spent (min) 30
[2021-05-31] MEDS: BUMETANIDE 1 MG in SYRINGE 0 ML IV SCH ×2 (12:45→16:35)
--- NOTE | 2021-05-31 13:04 | Cardiology Progress Note ---
Date of Service May 31, 2021 Assessment & Plan (1) Acute on chronic HFrEF (heart failure with reduced ejection fraction): (2) Ischemic cardiomyopathy: Plan: Lexiscan nuclear stress test demonstrates myocardial scar without superimposed ischemia. No benefit to cardiac cath at this time. (3) Atrial fibrillation: (4) UTI (urinary tract infection): Plan: Patient is demonstrated gradual improvement through diuresis and now thoracentesis. Medications being optimized though cardiorenal syndrome present with marginal renal function slightly improved today Repeat thoracentesis involving left chest today Restart anticoagulation post procedure initiate warfarin Continue IV diuretics holding dose in a.m. patient may now be approaching dry weight may need to choose oral dosing Discussed CHF instructions Patient has follow-up for consideration of BiV pacer defibrillator implantation post discharge will likely move up appointment, patient wearing LifeVest on admission Admission and Anticipated Discharge Date Admission Date: May 14, 2021 Subjective Patient seen and examined, chart, medications, telemetry reviewed. Less breathless than yesterday following thoracentesis. Some pleuritic discomfort and mild sputum production with cough. No fevers or chills. No tachypalpitations or dizziness. Review of Systems Review of Systems: All systems reviewed & are unremarkable except as noted in Subjective Physical Exam Constitutional: no acute distress Eyes: PERRL, conjunctivae normal, anicteric sclerae ENMT: external ear and nose normal, oropharynx normal Neck: trachea midline, no thyromegaly Respiratory: normal respiratory effort; no respiratory distress, no labored breathing and no retractions Auscultation: + diminished lung sounds (Improved on auscultation still mild dullness left base); no crackles, no rhonchi and no wheezes Cardiovascular: Rate/Rhythm: regular rate and regular rhythm Heart Sounds: normal S1 and normal S2; no murmur Vessels: no JVD and no carotid bruit Extremities: + edema (1+ pretibial edema) Gastrointestinal (Abdomen): normal bowel sounds, soft, nontender, no hepatosplenomegaly Inspection/Auscultation: abdomen normal to inspection and normal bowel sounds; abdomen not distended Percussion/Palpation: abdomen soft; abdomen nontender, no guarding and abdomen not rigid Neurologic: PERRL, EOMI, accommodation nl, no face palsy, no dysarthria CN's II-XI intact bilaterally and moves all extremities; no focal motor deficits Motor/Sensory: no tremor Results & Data ([facility]) Vital Signs (Past 12 Hours) Vital Signs Temp Pulse Resp BP Pulse Ox 05/31/21 12:02 36.4 C L 65 16 107/67 100 05/31/21 05:00 36.4 C L 63 20 109/69 97 Laboratory Results Laboratory Results - last 24 hr 05/30/21 05/30/21 05/31/21 16:10 22:58 07:24 PT 14.7 H INR 1.5 H APTT 33.9 H 76.1 H* 96.1 H* PTT Ratio 1.3 2.9 3.7 Sodium Potassium Chloride Carbon Dioxide Anion Gap BUN Creatinine Est Cr Clr Drug Dosing Est GFR ( Amer) Est GFR (Non-Af Amer) BUN/Creatinine Ratio Glucose Calcium 05/31/21 07:24 PT INR APTT PTT Ratio Sodium 142 Potassium 3.5 Chloride 108 H Carbon Dioxide 25 Anion Gap 9.0 BUN 78 H Creatinine 2.44 H Est Cr Clr Drug Dosing 23.0 Est GFR ( Amer) 27.9 Est GFR (Non-Af Amer) 24.1 BUN/Creatinine Ratio 32.1 H Glucose 102 H Calcium 8.1 L
--- NOTE | 2021-05-31 14:30 | Procedure Note ---
Procedure Note Date of Service May 31, 2021 Note Procedure: Diagnostic therapeutic ultrasound-guided catheter thoracentesis Transmitter Engineer In Charge: Dr. Helga Shepherd Indication: Left-sided pleural effusion Consent: Signed by patient and verified with timeout prior to procedure Anesthesia: 1% lidocaine without epinephrine local. Procedure: Consent was verified and timeout performed. Appropriate imaging studies were reviewed prior to the procedure. Patient was placed in a seated position and limited thoracic ultrasound was performed of the left chest. See separate imaging. Appropriate site above the diaphragm for thoracentesis was selected. The skin was prepped and draped in no rmal sterile fashion. Lidocaine was used for local analgesia. Fluid was aspirated via the finder needle. A small skin vinh was made with the scalpel and the catheter over the needle apparatus was advanced over the rib into the pleural space. Using the syringe one-way valve system, a total of 1000 mL's of serous fluid was removed. The catheter was removed and observed to be intact. A sterile dressing was applied. Post procedure chest x-ray was ordered. Fluid was sent for labs, culture and cytology. Complications: None Blood loss: None Coding CPT Codes Pulmonary/Thoracic - Pulmonary and Thoracic: 50083 Thoracentesis w imaging ([id number]) [facility] [place] Codes ([place]es) Pulmonary/Thoracic Procedure 1: Pulmonary and Thoracic: 78450 Thoracentesis w imaging
--- NOTE | 2021-05-31 15:01 | Billing Data ---
Date of Service May 31, 2021 Coding Level of Care Code 34444 Inpt Consult Level 3 Time Spent (min) 70
--- NOTE | 2021-05-31 15:08 | XRay Report ---
XR chest 1V portable CLINICAL HISTORY: post thoracentesis. Evaluate for pneumothorax COMPARISON STUDY: 05/30/2021 TECHNIQUE: 1 view of the chest FINDINGS: Single frontal view of the chest demonstrates the heart size to again be prominent in size. Compared to previous examination, there is evidence for left thoracentesis with no significant residual pleura l fluid identified. There is no evidence for pneumothorax. Compared to previous study, there is now haziness involving the lower half of the right lung characte ristic of pleural fluid layering along the posterior gutter on the right. This was not seen on the pr evious examination. There are no confluent alveolar opacities or gross vascular congestion. There is no acute osseous pathology. IMPRESSION: 1. Status post left thoracentesis with no definite residual pleural fluid identified on this portable upright radiograph. There is no evidence for pneumothorax. 2. There is evidence for recurrence of right pleural effusion layering along the posterior gutter inv olving the lower half of the right hemithorax. ACT 112: Negative or not required by law. Electronically signed by: Mohan Rueda M.D. 05/31/2021 3:07 PM
[2021-05-31 15:10] LABS: LDH Pleural Fluid 60 U/L; Total Protein Pleural Fluid 1.5 g/dl
--- NOTE | 2021-05-31 15:13 | XRay Report ---
XR foot LT min 3V routine CLINICAL HISTORY: lt heel pain/ulcer TECHNIQUE: 3 views of the left foot were obtained. Comparison: None available at the time of this dictation. FINDINGS: No fractures are present. The alignment is anatomic. Degenerative changes are seen. Mild soft tissue prominence is seen in the heel of the foot. IMPRESSION: Soft tissue swelling in the heel without evidence of bony erosion to suggest osteomyelitis. ACT 112: Negative or not required by law. Electronically signed by: Luciano Monterroso M.D. 05/31/2021 3:12 PM
[2021-05-31 15:22] LABS: Albumin Level 2.7 gm/dl (3.4-5.0); Bilirubin,Total 1.4 mg/dl (0.2-1); Total Protein 5.5 gm/dl (6.4-8.2)
[2021-05-31 16:23] LABS: Basophils, Fluid 1 %; Eosinophils, Fluid 0 %; Lymphocytes, Fluid 71 %; Mono,Macrophage,Mesothelial 24 %; Neutrophils, Fluid 4 %
[2021-05-31 17:02] LABS: Appearance Pleural Fluid CLEAR; Color Pleural Fluid PALE YELLOW; RBC Pleural Fluid (A) < 3000 /uL; Source Pleural Fluid LEFT LUNG; WBC Pleural Fluid (A) 416 /uL
[2021-05-31] MEDS: WARFARIN SOD 2 MG TAB PO SCH (17:14)
[2021-05-31 18:18] LABS: Partial Thromboplastin Ratio 1.9
[2021-05-31 18:19] LABS: Partial Thromboplastin Time 50.5 Seconds (21.0-31.0)
[2021-05-31] MEDS: DOCUSATE SODIUM/SENNA 50/8.6MG TAB PO SCH (19:41)
[2021-05-31] MEDS: METOPROLOL SUCC 25MG EXT REL TAB PO SCH (19:42)
--- NOTE | 2021-05-31 20:13 | Hospitalist Progress Note ---
Date of Service May 31, 2021 Assessment & Plan (1) Acute on chronic HFrEF (heart failure with reduced ejection fraction): (2) Ischemic cardiomyopathy: (3) Pleural effusion: Plan: (1) Acute on chronic HFrEF (heart failure with reduced ejection fraction): (1) Pleural effusion: R (1878 cc)>L (642 cc), 2/2 to above, s/p Rt thoracentesis 05/30 (2.2L out), Warfarin resumed 05/30, with bridging heparin. PT/INR daily, DC heparin when INR >1.9. Lt thora 05/31 w/ 1L serous fluid out. Has underlying ischemic cardiomyopathy with an EF 25% and is wearing a life vest which was given to him on hospital discharge 03/20/21. IV diuretics per nephrology with continued dyspnea on exertion. FR 1.5 L daily. Strict Is and Os. Anthony not feasible d/t recent UTI Continue Toprol XL and aspirin. RYLEE/ARB contraindicated in renal disease. Atorvastatin initially held in LFT elevation 2/2 congestive hepatopathy but this has been restarted. Defer diuretic titration to Cardiology and Nephrology teams (2) Acute kidney injury superimposed on chronic kidney disease: Recent increased diuretic use as outpatient prior to hospitalization. Possible etiology also cardiorenal syndrome per nephro. Baseline creat 2.5. Cont IV diuretics per nephrology. Daily BMP, Cr seems to be improving slowly. Nephrology having discussion regarding possible dialysis. Per Nephro, Pt likely needs to start planning for dialysis for volume control. (3) Ischemic cardiomyopathy: presumed per cardiology -> Lexiscan nuclear stress test demonstrated myocardial scar without superimposed ischemia, no benefit to cardiac cath at this time. Will need OP EP consultation (consideration for [employer] capable ICD after 3 months of evidence-based medical therapy (approx 06/26/21). (4) Ventricular tachycardia: maintains life vest. After foot and urine infections are cleared up, plan will be for outpatient EP consultation for consideration of AUT[employer]IC capable ICD. Cardiology team to arrange at discharge. (5) Atrial fibrillation: Per cardiology, two brief episodes of afib noted 05/19 and . Continue amiodarone, Toprol-XL. Warfarin resumed 05/30; heparin drip as bridge--to stop when INR >1.9, daily pt/inr (6) Pain of left heel: Recent thrombectomy of his left lower extremity in Mar 2021 after an NSTEMI and bilateral thoracentesis. He is subsequently developed a pressure ulcer that was painful on the left heel. Vascular evaluated and no further interventions needed. Cont medical management of peripheral vascular disease. (7) Aortic stenosis: (8) Elevated transaminase level: Likely secondary to congestive hepatopathy, right upper quadrant ultrasound is within normal limits. This is improved and atorvastatin was restarted. (9) Anemia in CKD (chronic kidney disease): Continues on Procrit as outpatient. Hb is stable. (10) UTI (urinary tract infection): 05/20 urine culture positive for E. coli sensitive to cefepime and ceftriaxone. cefuroxime 05/24-05/28 to cefdinir 05/28 for 3 more days. (11) DVT prophylaxis: Warfarin resumed, currently on bridgning heparin. Full code Disposition-continue PCU stay pending cardiology clearance. Will need OP EP consultation (consideration for [employer] capable ICD after 3 months of evidence-based medical therapy (approx 06/26/21). 05/30: Talked with Pt and his son (primary contact) about current status (need for dialysis, recurrent pleural effusion needing hospitalization and poor heart function), plan of care and code status/living will. They wouldn't want to explore palliative option now. Pt's son stated he will provide copy of living will to the hospital, will discuss about possibility of placing palliative pleurex catheter with patient after discussion with Cardio, and for now patient/his son wants Patient to be full code. Admission and Anticipated Discharge Date Admission Date: May 14, 2021 Subjective Patient was lying in bed, on room air, NAD, no new acute events overnight. Patient reports eating okay. Patient reports improvement in his breathing with slight movement, before he was desaturating with movements. Patient denies fever/chills/headache/chest pain/palpitation/other review of symptoms. Physical Exam Physical Exam: GENERAL: Alert and oriented x3. NAD, on RA. HEENT: No pallor, no icterus. Pupils equal, round and reactive to light. Oral mucosa moist. NECK: No JVD, no neck masses. HEART: S1 and S2 heard. Regular rate and rhythm. Systolic murmur over aortic area, no gallop. RESPIRATORY SYSTEM: Normal AP diameter. No accessory muscle use. No wheezing, crackles improving, decreased breath sounds noted over left lower lobe. ABDOMEN: Soft, bowel sounds present, nontender, no distention. CENTRAL NERVOUS SYSTEM: No facial droop. Speech is clear. Obeys simple commands. Moves extremities. EXTREMITIES: 1+ BLE edema, no erythema seen. Results & Data Results & Data ([facility]) Vital Signs (Past 12 Hours) Vital Signs Temp Pulse Resp BP Pulse Ox 05/31/21 15:37 36.3 C L 72 15 102/70 94 05/31/21 12:02 36.4 C L 65 16 107/67 100
[2021-05-31] MEDS: LORazepam 0.5 MG TAB PO PRN (22:10)
[2021-06-01] MEDS: HEPARIN SODIUM/DEXTROSE 25,000 UNITS/500 ML BAG IV SCH (03:12)
[2021-06-01] MEDS: BUMETANIDE 1 MG in SYRINGE 0 ML IV SCH ×2 (05:37→11:33)
[2021-06-01] MEDS: LEVOTHYROXINE SODIUM 75 MCG TABLET PO SCH (05:37)
[2021-06-01 05:45] LABS: Hematocrit (blood only) 22.8 % (42-52); Hemoglobin 7.3 g/dL (14.0-18.0)
[2021-06-01 06:35] LABS: BUN Creatinine Ratio 34.4 (10-20); Calcium 8.3 mg/dl (8.5-10.1); Est GFR (African American) 30.9 ml/min; Est GFR (Non-African American) 26.7 ml/min; Potassium 3.2 mmol/L (3.5-5.1)
[2021-06-01 06:43] LABS: Partial Thromboplastin Time 77.6 Seconds (21.0-31.0)
[2021-06-01] MEDS: CHOLECALCIFEROL 1,000 UNITS 25 MCG TAB PO SCH (08:42)
[2021-06-01] MEDS: CYANOCOBALAMIN 500 MCG TABLET (VITAMIN B-12) PO SCH (08:42)
[2021-06-01] MEDS: ASPIRIN 81 MG ECTAB PO SCH (08:43)
[2021-06-01] MEDS: AZELASTINE HCL 0.1% NASAL 200 SPRAYS/27,400 MCG BTL SCH ×2 (08:44→19:26)
[2021-06-01] MEDS: PYRIDOXINE HCL 50 MG TAB PO SCH ×2 (08:44→19:28)
[2021-06-01] MEDS: FLUTICASONE PROPIONATE NA SPR 16 GM BTL SCH (08:44)
[2021-06-01] MEDS: ATORVASTATIN 40 MG TAB PO SCH (08:44)
[2021-06-01] MEDS: AMIODARONE 200 MG TAB PO SCH (08:45)
--- NOTE | 2021-06-01 09:47 | Nephrology Progress Note ---
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 Baseline creatinine of 2.5. Admission creatinine of 3.8 and plateau'd at about 2.6 for several days; creatinine down today. K is low -Continue iv Bumex 1 mg tid today. Can be switched over torsemide 40 bid tomorrow -Continue replacement of potassium. -cont dialysis diet and 1.5L FR -Monitor input output - needs I/O best we can -Daily BMP --Patient likely needs to start planning for dialysis for volume control. Follows with Dr. Keyes (2) Acute decompensated heart failure: Plan: Patient with a low EF of 25% and pulmonary hypertension. Longer term for OP EP consult mid June, after appropriate medical tx window/optimization -diuretics iv as above for inpatient.He needs lot higher oral demadex dose as outpt. Seems was doing better with torsemide 40 bid but says felt " bad" on that dose but he needs a higher dose. 40 mg is minimum and likely needs higher dose than that Continue fluid limit 1.5 L daily (in general he takes in less than 1 L); continue less than 2 g daily sodium diet (3) Anemia due to chronic disease treated with erythropoietin: Plan: Patient received Procrit 20k units. We will continue to monitor and give Procrit weekly while here unpt Subjective Seen for CKD and CHF. Says he feels better. No SOB. had right thoracentesis yesterday. Review of Systems Review of Systems: All other systems were reviewed and negative except as noted in HPI Physical Exam Physical Exam: General exam: Appears comfortable, no acute distress HEENT: Pupils are equal and reactive to light Neck: No JVD, neck is supple trachea is midline Respiratory system: Reduced breath sounds in the bases bilaterally. Gastrointestinal: Abdomen is soft, non distended, non tender, bowel sounds are present CVS: Regular rate and rhythm. No murmurs, rubs or gallops Musculoskeletal: No joint or muscle tenderness Extremities: Non tender, trace edema, peripheral pulses are present Neuro: Oriented, no tremors, no focal neurological deficits Skin: No rashes Results & Data ([facility]) Vital Signs (Past 12 Hours) Vital Signs Temp Pulse Pulse Resp BP Pulse Ox 06/01/21 07:48 71 06/01/21 07:16 36.6 C 69 17 100/59 L 96 06/01/21 03:36 36.8 C 79 19 104/79 97 05/31/21 23:16 36.8 C 72 18 107/68 98 05/31/21 22:35 72 20 98
[2021-06-01 10:16] LABS: INR 1.5 (0.9-1.1); Prothrombin Time 14.5 Seconds (9.0-12.0)
[2021-06-01] MEDS: POTASSIUM CHLORIDE CRTAB 20 MEQ TABCR PO SCH ×2 (10:24→11:32)
[2021-06-01 12:57] LABS: Partial Thromboplastin Ratio 2.4
[2021-06-01 13:02] LABS: Partial Thromboplastin Time 63.8 Seconds (21.0-31.0)
--- NOTE | 2021-06-01 13:59 | Cardiology Progress Note ---
Date of Service June 01, 2021 Assessment & Plan (1) Acute on chronic HFrEF (heart failure with reduced ejection fraction): (2) Ischemic cardiomyopathy: Plan: Lexiscan nuclear stress test demonstrates myocardial scar without superimposed ischemia. No benefit to cardiac cath at this time. (3) Atrial fibrillation: (4) UTI (urinary tract infection): Plan: Patient is demonstrated gradual improvement through diuresis and now thoracentesis. Medications being optimized though cardiorenal syndrome present with marginal renal function slightly improved today Repeat thoracentesis involving left chest today Restart anticoagulation post procedure initiate warfarin Continue IV diuretics holding dose in a.m. patient may now be approaching dry weight may need to choose oral dosing Discussed CHF instructions Patient has follow-up for consideration of BiV pacer defibrillator implantation post discharge will likely move up appointment, patient wearing LifeVest on admission Admission and Anticipated Discharge Date Admission Date: May 14, 2021 Subjective Patient seen and examined, chart, medications, telemetry reviewed. Patient feels weak and fatigued today no specific complaint otherwise. No chest pains or discomfort. No dizziness or lightheadedness. No arrhythmias on telemetry Physical Exam Constitutional: no acute distress Eyes: PERRL, conjunctivae normal, anicteric sclerae ENMT: external ear and nose normal, oropharynx normal Neck: trachea midline, no thyromegaly Respiratory: normal respiratory effort; no respiratory distress, no labored breathing and no retractions Auscultation: + diminished lung sounds (Improved on auscultation still mild dullness left base); no crackles, no rhonchi and no wheezes Cardiovascular: Rate/Rhythm: regular rate and regular rhythm Heart Sounds: normal S1 and normal S2; no murmur Vessels: no JVD and no carotid bruit Extremities: + edema (1+ pretibial edema) Gastrointestinal (Abdomen): normal bowel sounds, soft, nontender, no hepatosplenomegaly Inspection/Auscultation: abdomen normal to inspection and normal bowel sounds; abdomen not distended Percussion/Palpation: abdomen soft; abdomen nontender, no guarding and abdomen not rigid Neurologic: PERRL, EOMI, accommodation nl, no face palsy, no dysarthria CN's II-XI intact bilaterally and moves all extremities; no focal motor deficits Motor/Sensory: no tremor Results & Data ([facility]) Vital Signs (Past 12 Hours) Vital Signs Temp Pulse Pulse Resp BP Pulse Ox 12/21/21 12:13 36.3 C L 92 H 178/110 H 97 06/01/21 07:48 71 06/01/21 07:16 36.6 C 69 17 100/59 L 96 06/01/21 03:36 36.8 C 79 19 104/79 97 Laboratory Results Laboratory Results - last 24 hr 05/31/21 05/31/21 05/31/21 14:33 14:33 17:44 Hgb Hct PT INR APTT 50.5 H* PTT Ratio 1.9 Sodium Potassium Chloride Carbon Dioxide Anion Gap BUN Creatinine Est Cr Clr Drug Dosing Est GFR ( Amer) Est GFR (Non-Af Amer) BUN/Creatinine Ratio Glucose Calcium Total Bilirubin 1.4 H Lactate Dehydrogenase 254 H Total Protein 5.5 L Albumin 2.7 L Fluid Neutrophils % Fluid Lymphocytes % Fluid Eosinophils % Fluid Basophils % Fluid [place]/Mac[place] % Fluid Comment Pleural Fluid Source Pleural Color Pleural Appearance Pleural pH Pleural WBC Pleural RBC Pleural Other Cells Pleural Total Protein Pleural LDH Pleural Glucose Pleural Amylase Pleural Cholesterol 05/31/21 05/31/21 05/31/21 Unknown Unknown Unknown Hgb Hct PT INR APTT PTT Ratio Sodium Potassium Chloride Carbon Dioxide Anion Gap BUN Creatinine Est Cr Clr Drug Dosing Est GFR ( Amer) Est GFR (Non-Af Amer) BUN/Creatinine Ratio Glucose Calcium Total Bilirubin Lactate Dehydrogenase Total Protein Albumin Fluid Neutrophils % 4 Fluid Lymphocytes % 71 Fluid Eosinophils % 0 Fluid Basophils % 1 Fluid [place]/Mac[place]/Cole % 24 Fluid Comment Pleural Fluid Source LEFT LUNG Pleural Color PALE YELLOW Pleural Appearance CLEAR Pleural pH 7.50 H Pleural WBC 416 Pleural RBC < 3000 Pleural Other Cells 0.0 Pleural Total Protein 1.5 Pleural LDH 60 Pleural Glucose 114 Pleural Amylase 12 Pleural Cholesterol 05/31/21 06/01/21 06/01/21 Unknown 05:21 05:21 Hgb 7.3 L Hct 22.8 L PT INR APTT PTT Ratio Sodium 141 Potassium 3.2 L Chloride 107 Carbon Dioxide 26 Anion Gap 8.0 BUN 77 H Creatinine 2.24 H Est Cr Clr Drug Dosing 25.0 Est GFR ( Amer) 30.9 Est GFR (Non-Af Amer) 26.7 BUN/Creatinine Ratio 34.4 H Glucose 107 H Calcium 8.3 L Total Bilirubin Lactate Dehydrogenase Total Protein Albumin Fluid Neutrophils % Fluid Lymphocytes % Fluid Eosinophils % Fluid Basophils % Fluid [place]/Mac[place] % Fluid Comment Pleural Fluid Source Pleural Color Pleural Appearance Pleural pH Pleural WBC Pleural RBC Pleural Other Cells Pleural Total Protein Pleural LDH Pleural Glucose Pleural Amylase Pleural Cholesterol Pending 06/01/21 06/01/21 05:21 12:22 Hgb Hct PT 14.5 H INR 1.5 H APTT 77.6 H* 63.8 H* PTT Ratio 3.0 2.4 Sodium Potassium Chloride Carbon Dioxide Anion Gap BUN Creatinine Est Cr Clr Drug Dosing Est GFR ( Amer) Est GFR (Non-Af Amer) BUN/Creatinine Ratio Glucose Calcium Total Bilirubin Lactate Dehydrogenase Total Protein Albumin Fluid Neutrophils % Fluid Lymphocytes % Fluid Eosinophils % Fluid Basophils % Fluid Meso/Macro/Cole % Fluid Comment Pleural Fluid Source Pleural Color Pleural Appearance Pleural pH Pleural WBC Pleural RBC Pleural Other Cells Pleural Total Protein Pleural LDH Pleural Glucose Pleural Amylase Pleural Cholesterol
--- NOTE | 2021-06-01 14:13 | Cardiology Progress Note ---
Date of Service June 01, 2021 Assessment & Plan (1) Acute on chronic HFrEF (heart failure with reduced ejection fraction): (2) Ischemic cardiomyopathy: Plan: Lexiscan nuclear stress test demonstrates myocardial scar without superimposed ischemia. No benefit to cardiac cath at this time. (3) Atrial fibrillation: (4) UTI (urinary tract infection): Plan: Patient is demonstrated gradual improvement through diuresis and bilateral thoracentesis. Medications being optimized though cardiorenal syndrome present with marginal renal function slightly improved again today Hypotensive after midday dose of diuretic We will switch to oral this evening Continue IV heparin transition to warfarin Admission and Anticipated Discharge Date Admission Date: May 14, 2021 Subjective Patient seen and examined, chart, medications, telemetry reviewed. Patient feels weak and fatigued today no specific complaint otherwise. No chest pains or discomfort. No dizziness or lightheadedness. No arrhythmias on telemetry Mildly hypotensive after second IV dose of Bumex Review of Systems Review of Systems: All systems reviewed & are unremarkable except as noted in Subjective Physical Exam Constitutional: + thin; no acute distress Eyes: PERRL, conjunctivae normal, anicteric sclerae ENMT: external ear and nose normal, oropharynx normal Neck: trachea midline, no thyromegaly Respiratory: Auscultation: no rales Cardiovascular: Rate/Rhythm: regular rate, regular rhythm and + bradycardic Vessels: no JVD Extremities: no edema Gastrointestinal (Abdomen): normal bowel sounds, soft, nontender, no hepatosplenomegaly Results & Data ([facility]) Vital Signs (Past 12 Hours) Vital Signs Temp Pulse Pulse Pulse Resp BP BP 06/01/21 14:02 66 95/62 L 06/01/21 12:13 36.3 C L 92 H 06/01/21 07:48 71 06/01/21 07:16 36.6 C 69 17 100/59 L 06/01/21 03:36 36.8 C 79 19 104/79 Pulse Ox 06/01/21 14:02 06/01/21 12:13 97 06/01/21 07:48 06/01/21 07:16 96 06/01/21 03:36 97 Laboratory Results Laboratory Results - last 24 hr 05/31/21 05/31/21 05/31/21 14:33 14:33 17:44 Hgb Hct PT INR APTT 50.5 H* PTT Ratio 1.9 Sodium Potassium Chloride Carbon Dioxide Anion Gap BUN Creatinine Est Cr Clr Drug Dosing Est GFR ( Amer) Est GFR (Non-Af Amer) BUN/Creatinine Ratio Glucose Calcium Total Bilirubin 1.4 H Lactate Dehydrogenase 254 H Total Protein 5.5 L Albumin 2.7 L Fluid Neutrophils % Fluid Lymphocytes % Fluid Eosinophils % Fluid Basophils % Fluid [place] % Fluid Comment Pleural Fluid Source Pleural Color Pleural Appearance Pleural pH Pleural WBC Pleural RBC Pleural Other Cells Pleural Total Protein Pleural LDH Pleural Glucose Pleural Amylase Pleural Cholesterol 05/31/21 05/31/21 05/31/21 Unknown Unknown Unknown Hgb Hct PT INR APTT PTT Ratio Sodium Potassium Chloride Carbon Dioxide Anion Gap BUN Creatinine Est Cr Clr Drug Dosing Est GFR ( Amer) Est GFR (Non-Af Amer) BUN/Creatinine Ratio Glucose Calcium Total Bilirubin Lactate Dehydrogenase Total Protein Albumin Fluid Neutrophils % 4 Fluid Lymphocytes % 71 Fluid Eosinophils % 0 Fluid Basophils % 1 Fluid [place] % 24 Fluid Comment Pleural Fluid Source LEFT LUNG Pleural Color PALE YELLOW Pleural Appearance CLEAR Pleural pH 7.50 H Pleural WBC 416 Pleural RBC < 3000 Pleural Other Cells 0.0 Pleural Total Protein 1.5 Pleural LDH 60 Pleural Glucose 114 Pleural Amylase 12 Pleural Cholesterol 05/31/21 06/01/21 06/01/21 Unknown 05:21 05:21 Hgb 7.3 L Hct 22.8 L PT INR APTT PTT Ratio Sodium 141 Potassium 3.2 L Chloride 107 Carbon Dioxide 26 Anion Gap 8.0 BUN 77 H Creatinine 2.24 H Est Cr Clr Drug Dosing 25.0 Est GFR ( Amer) 30.9 Est GFR (Non-Af Amer) 26.7 BUN/Creatinine Ratio 34.4 H Glucose 107 H Calcium 8.3 L Total Bilirubin Lactate Dehydrogenase Total Protein Albumin Fluid Neutrophils % Fluid Lymphocytes % Fluid Eosinophils % Fluid Basophils % Fluid [place] % Fluid Comment Pleural Fluid Source Pleural Color Pleural Appearance Pleural pH Pleural WBC Pleural RBC Pleural Other Cells Pleural Total Protein Pleural LDH Pleural Glucose Pleural Amylase Pleural Cholesterol Pending 06/01/21 06/01/21 05:21 12:22 Hgb Hct PT 14.5 H INR 1.5 H APTT 77.6 H* 63.8 H* PTT Ratio 3.0 2.4 Sodium Potassium Chloride Carbon Dioxide Anion Gap BUN Creatinine Est Cr Clr Drug Dosing Est GFR ( Amer) Est GFR (Non-Af Amer) BUN/Creatinine Ratio Glucose Calcium Total Bilirubin Lactate Dehydrogenase Total Protein Albumin Fluid Neutrophils % Fluid Lymphocytes % Fluid Eosinophils % Fluid Basophils % Fluid [place] % Fluid Comment Pleural Fluid Source Pleural Color Pleural Appearance Pleural pH Pleural WBC Pleural RBC Pleural Other Cells Pleural Total Protein Pleural LDH Pleural Glucose Pleural Amylase Pleural Cholesterol
[2021-06-01] MEDS: TORSEMIDE 10 MG TAB PO SCH (16:13)
[2021-06-01] MEDS: WARFARIN SOD 2 MG TAB PO SCH (16:44)
--- NOTE | 2021-06-01 17:17 | Hospitalist Progress Note ---
Date of Service June 01, 2021 Assessment & Plan (1) Acute on chronic HFrEF (heart failure with reduced ejection fraction): (2) Ischemic cardiomyopathy: (3) Pleural effusion: Plan: (1) Acute on chronic HFrEF (heart failure with reduced ejection fraction): (1) Pleural effusion: R (1878 cc)>L (642 cc), 2/2 to above, s/p Rt thoracentesis 05/30 (2.2L out), Warfarin resumed 05/30, with bridging heparin. PT/INR daily, DC heparin when INR >1.9. Lt thora 05/31 w/ 1L serous fluid out. Has underlying ischemic cardiomyopathy with an EF 25% and is wearing a life vest which was given to him on hospital discharge 03/20/21. IV diuretics per nephrology with continued dyspnea on exertion. FR 1.5 L daily. Strict Is and Os. Anthony not feasible d/t recent UTI Continue Toprol XL and aspirin. RYLEE/ARB contraindicated in renal disease. Atorvastatin initially held in LFT elevation 2/2 congestive hepatopathy but this has been restarted. Defer diuretic titration to Cardiology and Nephrology teams --> being optimized, pt was hypotensive after midday dose of diuretic (2) Acute kidney injury superimposed on chronic kidney disease: Recent increased diuretic use as outpatient prior to hospitalization. Possible etiology also cardiorenal syndrome per nephro. Baseline creat 2.5. Cont IV diuretics per nephrology. Daily BMP, Cr seems to have improved 2.24 today. Nephrology having discussion regarding possible dialysis. Per Nephro, Pt likely needs to start planning for dialysis for volume control. (3) Ischemic cardiomyopathy: presumed per cardiology -> Lexiscan nuclear stress test demonstrated myocardial scar without superimposed ischemia, no benefit to cardiac cath at this time. Will need OP EP consultation (consideration for [employer] capable ICD after 3 months of evidence-based medical therapy (approx 06/26/21). (4) Ventricular tachycardia: maintains life vest. After foot and urine infections are cleared up, plan will be for outpatient EP consultation for consideration of [employer] capable ICD. Cardiology team to arrange at discharge. (5) Atrial fibrillation: Per cardiology, two brief episodes of afib noted 05/19 and . Continue amiodarone, Toprol-XL. Warfarin resumed 05/30; heparin drip as bridge--to stop when INR >1.9, daily pt/inr (6) Pain of left heel: Recent thrombectomy of his left lower extremity in Mar 2021 after an NSTEMI and bilateral thoracentesis. He is subsequently developed a pressure ulcer that was painful on the left heel. Vascular evaluated and no further interventions needed. Cont medical management of peripheral vascular disease. (7) Aortic stenosis: (8) Elevated transaminase level: Likely secondary to congestive hepatopathy, right upper quadrant ultrasound is within normal limits. This is improved and atorvastatin was restarted. (9) Anemia in CKD (chronic kidney disease): Continues on Procrit as outpatient. Hb is stable. (10) UTI (urinary tract infection): 05/20 urine culture positive for E. coli sensitive to cefepime and ceftriaxone. cefuroxime 05/24-05/28 to cefdinir 05/28 for 3 more days. (11) DVT prophylaxis: Warfarin resumed, currently on bridgning heparin. Full code Disposition-continue PCU stay pending cardiology clearance. Will need OP EP consultation (consideration for [employer] capable ICD after 3 months of evidence-based medical therapy (approx 06/26/21). 05/30: Talked with Pt and his son (primary contact) about current status (need for dialysis, recurrent pleural effusion needing hospitalization and poor heart function), plan of care and code status/living will. They wouldn't want to explore palliative option now. Pt's son stated he will provide copy of living will to the hospital, will discuss about possibility of placing palliative pleurex catheter with patient after discussion with Cardio, and for now patient/his son wants Patient to be full code. Palliative care has full discussion with the patient and his son, Pt remains full code until [employer]-compatible ICD and Dialysis fails. Pt also would like to set up with [facility] palliative care as an outpatient. Admission and Anticipated Discharge Date Admission Date: May 14, 2021 Subjective Patient was sitting up in bed, on room air, NAD, no new acute events overnight. Patient reports feeling somewhat better after bilateral thoracentesis, reports decrease in his shortness of breath with movement. Patient denies any fever/chills/headache/chest pain/palpitation/other review of symptoms. Patient is eating okay and moving bowels okay. Physical Exam Physical Exam: GENERAL: Alert and oriented x3. NAD, on RA. HEENT: No pallor, no icterus. Pupils equal, round and reactive to light. Oral mucosa moist. NECK: No JVD, no neck masses. HEART: S1 and S2 heard. Regular rate and rhythm. Systolic murmur over aortic area, no gallop. RESPIRATORY SYSTEM: Normal AP diameter. No accessory muscle use. No wheezing, crackles improving - mostly bibasal ABDOMEN: Soft, bowel sounds present, nontender, no distention. CENTRAL NERVOUS SYSTEM: No facial droop. Speech is clear. Obeys simple commands. Moves extremities. EXTREMITIES: 1+ BLE edema, no erythema seen. Left heel ulcer improving Results & Data Results & Data ([facility]) Vital Signs (Past 12 Hours) Vital Signs Temp Pulse Pulse Pulse Resp BP BP 06/01/21 15:21 36.7 C 68 94/62 L 06/01/21 14:59 67 06/01/21 14:02 66 95/62 L 06/01/21 12:13 36.3 C L 92 H 06/01/21 07:48 71 06/01/21 07:16 36.6 C 69 17 100/59 L Pulse Ox 06/01/21 15:21 95 06/01/21 14:59 06/01/21 14:02 06/01/21 12:13 97 06/01/21 07:48 06/01/21 07:16 96
[2021-06-01] MEDS: DOCUSATE SODIUM/SENNA 50/8.6MG TAB PO SCH (19:27)
[2021-06-01] MEDS: METOPROLOL SUCC 25MG EXT REL TAB PO SCH (19:27)
[2021-06-02] MEDS: LORazepam 0.5 MG TAB PO PRN (00:20)
[2021-06-02] MEDS: LEVOTHYROXINE SODIUM 75 MCG TABLET PO SCH (04:17)
[2021-06-02 07:33] LABS: Hemoglobin 7.5 g/dL (14.0-18.0)
[2021-06-02 07:53] LABS: Partial Thromboplastin Ratio 2.5
[2021-06-02 08:08] LABS: BUN Creatinine Ratio 33.6 (10-20); Calcium 8.3 mg/dl (8.5-10.1); Creatinine Clr Calc Pharmacy 26.8 ml/min; Est GFR (African American) 30.4 ml/min; Est GFR (Non-African American) 26.3 ml/min; Potassium 3.4 mmol/L (3.5-5.1)
[2021-06-02 08:39] LABS: Partial Thromboplastin Time 66.3 Seconds (21.0-31.0)
[2021-06-02] MEDS: CHOLECALCIFEROL 1,000 UNITS 25 MCG TAB PO SCH (08:49)
[2021-06-02] MEDS: HEPARIN SODIUM/DEXTROSE 25,000 UNITS/500 ML BAG IV SCH (08:49)
[2021-06-02] MEDS: AMIODARONE 200 MG TAB PO SCH (08:49)
[2021-06-02] MEDS: ATORVASTATIN 40 MG TAB PO SCH (08:49)
[2021-06-02] MEDS: FLUTICASONE PROPIONATE NA SPR 16 GM BTL SCH (08:50)
[2021-06-02] MEDS: ASPIRIN 81 MG ECTAB PO SCH (08:50)
[2021-06-02] MEDS: CYANOCOBALAMIN 500 MCG TABLET (VITAMIN B-12) PO SCH (08:50)
[2021-06-02] MEDS: PYRIDOXINE HCL 50 MG TAB PO SCH ×2 (08:50→19:42)
[2021-06-02] MEDS: TORSEMIDE 10 MG TAB PO SCH ×2 (08:51→16:44)
[2021-06-02] MEDS: AZELASTINE HCL 0.1% NASAL 200 SPRAYS/27,400 MCG BTL SCH ×2 (08:51→19:43)
--- NOTE | 2021-06-02 09:52 | Nephrology Progress Note ---
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 Baseline creatinine of 2.5. Admission creatinine of 3.8 and plateau'd at about 2.6 for several days; creatinine down today. K is low -Continue torsemide 40 bid now and also at discharge -Continue replacement of potassium as needed. -cont dialysis diet and 1.5L FR -Monitor input output - needs I/O best we can -Daily BMP --Patient likely needs to start planning for dialysis for volume control. Follows with Dr. Keyes and will do that as outpt (2) Acute decompensated heart failure: Plan: Patient with a low EF of 25% and pulmonary hypertension. Longer term for OP EP consult mid June, after appropriate medical tx window/optimization -diuretics iv as above for inpatient.He needs lot higher oral demadex dose as outpt. Seems was doing better with torsemide 40 bid but says felt " bad" on that dose but he needs a higher dose. 40 mg is minimum and likely needs higher dose than that Continue fluid limit 1.5 L daily (in general he takes in less than 1 L); continue less than 2 g daily sodium diet (3) Anemia due to chronic disease treated with erythropoietin: Plan: Patient received Procrit 20k units. We will continue to monitor and give Procrit weekly while here inpt Subjective Seen for CKD and CHF. Says he feels better. had low BP yesterday. No major SOB. had right thoracentesis Review of Systems Review of Systems: All other systems were reviewed and negative except as noted in HPI Physical Exam Physical Exam: General exam: Appears comfortable, no acute distress HEENT: Pupils are equal and reactive to light Neck: No JVD, neck is supple trachea is midline Respiratory system: Reduced breath sounds in the bases bilaterally. Gastrointestinal: Abdomen is soft, non distended, non tender, bowel sounds are present CVS: Regular rate and rhythm. No murmurs, rubs or gallops Musculoskeletal: No joint or muscle tenderness Extremities: Non tender, trace edema, peripheral pulses are present Neuro: Oriented, no tremors, no focal neurological deficits Skin: No rashes Results & Data ([facility]) Vital Signs (Past 12 Hours) Vital Signs Temp Pulse Pulse Resp BP BP Pulse Ox 06/02/21 07:57 36.9 C 88 16 99/74 L 96 06/02/21 07:52 70 06/02/21 03:41 37.1 C 68 18 91/52 L 90 06/01/21 23:42 36.7 C 73 18 100/63 95
[2021-06-02 10:18] LABS: INR 1.4 (0.9-1.1); Prothrombin Time 13.7 Seconds (9.0-12.0)
[2021-06-02] MEDS: POTASSIUM CHLORIDE CRTAB 20 MEQ TABCR PO SCH ×2 (11:06→19:42)
--- NOTE | 2021-06-02 12:36 | Hospitalist Progress Note ---
Date of Service June 02, 2021 Assessment & Plan (1) Acute on chronic HFrEF (heart failure with reduced ejection fraction): (2) Ischemic cardiomyopathy: (3) Pleural effusion: Plan: per Dr. Spaulding's notes with addendum: (1) Acute on chronic HFrEF (heart failure with reduced ejection fraction): (1) Pleural effusion: R (1878 cc)>L (642 cc), 2/2 to above, s/p Rt thoracentesis 05/30 (2.2L out), Warfarin resumed 05/30, with bridging heparin. PT/INR daily, DC heparin when INR >1.9. Lt thora 05/31 w/ 1L serous fluid out. Has underlying ischemic cardiomyopathy with an EF 25% and is wearing a life vest which was given to him on hospital discharge 03/20/21. IV diuretics per nephrology with continued dyspnea on exertion. FR 1.5 L daily. Strict Is and Os. Anthony not feasible d/t recent UTI Continue Toprol XL and aspirin. RYLEE/ARB contraindicated in renal disease. Atorvastatin initially held in LFT elevation 2/2 congestive hepatopathy but this has been restarted. Defer diuretic titration to Cardiology and Nephrology teams --> being optimized, pt was hypotensive after midday dose of diuretic 06/02 diuresing well BP marginal but asymptomatic continue Torsemide 40 meq BID crea improving further to 2.2---> seems to be baseline replace K PT and OT eval (2) Acute kidney injury superimposed on chronic kidney disease: Recent increased diuretic use as outpatient prior to hospitalization. Possible etiology also cardiorenal syndrome per nephro. Baseline creat 2.5. Cont IV diuretics per nephrology. Daily BMP, Cr seems to have improved 2.24 today. Nephrology having discussion regarding possible dialysis. Per Nephro, Pt likely needs to start planning for dialysis for volume control. 06/02 crea improved to 2.2 continue Torsemide PO (3) Ischemic cardiomyopathy: presumed per cardiology -> Lexiscan nuclear stress test demonstrated myocardial scar without superimposed ischemia, no benefit to cardiac cath at this time. Will need OP EP consultation (consideration for PULL OVER capable ICD after 3 months of evidence-based medical therapy (approx 06/26/21). (4) Ventricular tachycardia: maintains life vest. After foot and urine infections are cleared up, plan will be for outpatient EP consultation for consideration of PULL OVER capable ICD. Cardiology team to arrange at discharge. (5) Atrial fibrillation: Per cardiology, two brief episodes of afib noted 05/19 and . Continue amiodarone, Toprol-XL. Warfarin resumed 05/30; heparin drip as bridge--to stop when INR >1.9, daily pt/inr 06/02 INR 1.4 increase coumadin to 4mg ff INR (6) Pain of left heel: Recent thrombectomy of his left lower extremity in Mar 2021 after an NSTEMI and bilateral thoracentesis. He is subsequently developed a pressure ulcer that was painful on the left heel. Vascular evaluated and no further interventions needed. Cont medical management of peripheral vascular disease. (7) Aortic stenosis: (8) Elevated transaminase level: Likely secondary to congestive hepatopathy, right upper quadrant ultrasound is within normal limits. This is improved and atorvastatin was restarted. (9) Anemia in CKD (chronic kidney disease): Continues on Procrit as outpatient. Hb is stable. (10) UTI (urinary tract infection): 05/20 urine culture positive for E. coli sensitive to cefepime and ceftriaxone. cefuroxime 05/24-05/28 to cefdinir 05/28 for 3 more days. 06/02 completed antibiotic course (11) DVT prophylaxis: Warfarin resumed, currently on bridging heparin. Full code Disposition-continue PCU stay pending cardiology clearance. Will need OP EP consultation (consideration for PULL OVER capable ICD after 3 months of evidence-based medical therapy (approx 06/26/21). 05/30: Talked with Pt and his son (primary contact) about current status (need for dialysis, recurrent pleural effusion needing hospitalization and poor heart function), plan of care and code status/living will. They wouldn't want to explore palliative option now. Pt's son stated he will provide copy of living will to the hospital, will discuss about possibility of placing palliative pleurex catheter with patient after discussion with Cardio, and for now patient/his son wants Patient to be full code. Palliative care has full discussion with the patient and his son, Pt remains full code until PULL OVER-compatible ICD and Dialysis fails. Pt also would like to set up with [facility] palliative care as an outpatient. Admission and Anticipated Discharge Date Admission Date: May 14, 2021 Subjective ff up for acute on chronic CHF, etc seen resting in bed, comfortable states he feels ok overall no chest pain, dyspnea, palpitations, dizziness voiding with no problems no other symptoms Review of Systems Review of Systems: all noted and negative except for above Physical Exam Physical Exam: General- oriented x 3, not in distress, speaks in sentences with no effort or accessory muscle use Eyes- anicteric Neck- no JVD Lungs- mild rales at the right base, clear on the left Heart- normal rate, regular rhythm; no murmurs Abdomen- normal bowel sounds, nondistended, soft, nontender Extremities- no pretibial edema, no calf tenderness Neuro- alert, oriented x 3; no gross focal neurologic deficits Skin- warm & dry Results & Data Results & Data ([facility]) Vital Signs (Past 12 Hours) Vital Signs Temp Pulse Pulse Resp BP BP Pulse Ox 06/02/21 11:00 36.7 C 72 96 H 96/61 L 06/02/21 07:57 36.9 C 88 16 99/74 L 96 06/02/21 07:52 70 06/02/21 03:41 37.1 C 68 18 91/52 L 90 all noted and reviewed including below
--- NOTE | 2021-06-02 13:11 | Cardiology Progress Note ---
Date of Service June 02, 2021 Assessment & Plan (1) Acute on chronic HFrEF (heart failure with reduced ejection fraction): (2) Ischemic cardiomyopathy: Plan: Lexiscan nuclear stress test demonstrates myocardial scar without superimposed ischemia. No benefit to cardiac cath at this time. (3) Atrial fibrillation: (4) UTI (urinary tract infection): Plan: Patient is demonstrated gradual improvement through diuresis and bilateral thoracentesis. Medications being optimized though cardiorenal syndrome present with marginal renal function, once again slightly improved Medications and diuretics transition to oral Continue CHF instructions Heparin being transition back to warfarin Blood pressure and renal function will not allow RYLEE or ARB/Entresto. Anticipating referral for BiV pacer defibrillator post discharge Suspect patient's functional capacity will not allow patient to return to independent living at least initially placement option should be investigated Admission and Anticipated Discharge Date Admission Date: May 14, 2021 Subjective Patient seen and examined, chart, medications, telemetry reviewed. Patient awakened from sleep without complaint. No chest pains or discomfort. No orthopnea while lying flat. Lower extremity edema improved Review of Systems Review of Systems: All systems reviewed & are unremarkable except as noted in Subjective Physical Exam Constitutional: + thin; no acute distress Eyes: PERRL, conjunctivae normal, anicteric sclerae ENMT: external ear and nose normal, oropharynx normal Neck: trachea midline, no thyromegaly Respiratory: normal respiratory effort Auscultation: + crackles (Fine bibasilar right greater than left) Cardiovascular: Rate/Rhythm: regular rate, regular rhythm and + bradycardic Vessels: no JVD Extremities: no edema Gastrointestinal (Abdomen): normal bowel sounds, soft, nontender, no hepatosplenomegaly Results & Data ([facility]) Vital Signs (Past 12 Hours) Vital Signs Temp Pulse Pulse Resp BP BP Pulse Ox 06/02/21 11:00 36.7 C 72 96 H 96/61 L 06/02/21 07:57 36.9 C 88 16 99/74 L 96 06/02/21 07:52 70 06/02/21 03:41 37.1 C 68 18 91/52 L 90 Laboratory Results Laboratory Results - last 24 hr 06/02/21 06/02/21 06/02/21 07:09 07:09 07:09 Hgb 7.5 L Hct 23.0 L PT INR APTT 66.3 H* PTT Ratio 2.5 Sodium 141 Potassium 3.4 L Chloride 108 H Carbon Dioxide 26 Anion Gap 8.0 BUN 76 H Creatinine 2.27 H Est Cr Clr Drug Dosing 26.8 Est GFR ( Amer) 30.4 Est GFR (Non-Af Amer) 26.3 BUN/Creatinine Ratio 33.6 H Glucose 106 H Calcium 8.3 L 06/02/21 07:09 Hgb Hct PT 13.7 H INR 1.4 H APTT PTT Ratio Sodium Potassium Chloride Carbon Dioxide Anion Gap BUN Creatinine Est Cr Clr Drug Dosing Est GFR ( Amer) Est GFR (Non-Af Amer) BUN/Creatinine Ratio Glucose Calcium
[2021-06-02] MEDS ORDERED: WARFARIN SOD 4 MG TAB PO ONE (16:00)
[2021-06-02] MEDS: DOCUSATE SODIUM/SENNA 50/8.6MG TAB PO SCH (19:43)
[2021-06-02] MEDS: METOPROLOL SUCC 25MG EXT REL TAB PO SCH (19:43)
[2021-06-02] MEDS: MELATONIN 3 MG TAB PO PRN (23:23)
[2021-06-03] MEDS: LEVOTHYROXINE SODIUM 75 MCG TABLET PO SCH (06:02)
[2021-06-03 06:36] LABS: INR 1.6 (0.9-1.1); Partial Thromboplastin Ratio 2.4; Prothrombin Time 15.3 Seconds (9.0-12.0)
[2021-06-03 06:40] LABS: Partial Thromboplastin Time 63.3 Seconds (21.0-31.0)
[2021-06-03] MEDS: PYRIDOXINE HCL 50 MG TAB PO SCH ×2 (08:58→21:49)
[2021-06-03] MEDS: AMIODARONE 200 MG TAB PO SCH (08:58)
[2021-06-03] MEDS: ASPIRIN 81 MG ECTAB PO SCH (08:59)
[2021-06-03] MEDS: CHOLECALCIFEROL 1,000 UNITS 25 MCG TAB PO SCH (08:59)
[2021-06-03] MEDS: FLUTICASONE PROPIONATE NA SPR 16 GM BTL SCH (08:59)
[2021-06-03] MEDS: CYANOCOBALAMIN 500 MCG TABLET (VITAMIN B-12) PO SCH (08:59)
[2021-06-03] MEDS: POTASSIUM CHLORIDE CRTAB 20 MEQ TABCR PO SCH (08:59)
[2021-06-03] MEDS: TORSEMIDE 10 MG TAB PO SCH ×2 (08:59→16:05)
[2021-06-03] MEDS: ATORVASTATIN 40 MG TAB PO SCH (08:59)
[2021-06-03] MEDS: AZELASTINE HCL 0.1% NASAL 200 SPRAYS/27,400 MCG BTL SCH ×2 (09:00→21:47)
[2021-06-03] MEDS: ACETAMINOPHEN 325 MG TAB PO PRN (10:58)
[2021-06-03 11:09] LABS: Basophils # (auto) 0.05 K/uL (0-0.2); Basophils % (auto) 0.8 %; Eosinophils # (auto) 0.03 K/uL (0-0.5); Eosinophils % (auto) 0.5 %; Hematocrit (blood only) 23.2 % (42-52); Hemoglobin 7.5 g/dL (14.0-18.0); Immature Granulocytes # (auto) 0.02 K/uL (0.00-0.02); Immature Granulocytes % (auto) 0.3 %; Lymphocytes # (auto) 2.94 K/uL (1.2-3.4); Lymphocytes % (auto) 47.7 %; Mean Corpuscular Hemoglobin 38.5 pg (25-34); Mean Corpuscular Hgb Conc 32.3 g/dL (32-36); Mean Platelet Volume 10.5 fL (7.4-10.4); Monocytes # (auto) 0.79 K/uL (0.11-0.59); Monocytes % (auto) 12.8 %; Neutrophils # (auto) 2.33 K/uL (1.4-6.5); Neutrophils % (auto) 37.9 %; Platelet Count 280 K/uL (130-400); RDW Coefficient of Variation 23.8 % (11.5-14.5); RDW Standard Deviation 102.3 fL (36.4-46.3); Red Blood Count 1.95 M/uL (4.7-6.1); White Blood Count 6.16 K/uL (4.8-10.8)
[2021-06-03 11:21] LABS: BUN Creatinine Ratio 33.5 (10-20); Calcium 8.8 mg/dl (8.5-10.1); Creatinine Clr Calc Pharmacy 22.9 ml/min; Est GFR (African American) 27.8 ml/min; Magnesium 2.5 mg/dl (1.8-2.4); Potassium 4.2 mmol/L (3.5-5.1)
[2021-06-03] MEDS ORDERED: OXYMETAZOLINE 0.05% 30 ML BTL ONE (11:22)
[2021-06-03 11:49] LABS: Macrocytosis Present; Ovalocytes 1+
--- NOTE | 2021-06-03 11:56 | Cardiology Progress Note ---
Date of Service June 03, 2021 Assessment & Plan (1) Acute on chronic HFrEF (heart failure with reduced ejection fraction): (2) Ischemic cardiomyopathy: Plan: Lexiscan nuclear stress test demonstrates myocardial scar without superimposed ischemia. No benefit to cardiac cath at this time. (3) Atrial fibrillation: (4) UTI (urinary tract infection): Plan: Patient is demonstrated gradual improvement through diuresis and bilateral thoracentesis. Medications being optimized though cardiorenal syndrome present with marginal renal function Medications and diuretics transitioned to oral May need to reduce torsemide slightly tomorrow Continue CHF instructions Heparin being transitioned back to warfarin Blood pressure and renal function will not allow RYLEE or ARB/Entresto. Anticipating referral for BiV pacer defibrillator post discharge Suspect patient's functional capacity will not allow patient to return to independent living at least initially placement option should be investigated Admission and Anticipated Discharge Date Admission Date: May 14, 2021 Subjective Patient seen and examined, chart, medications, telemetry reviewed. No complaints other than nosebleed this morning. Review of Systems Review of Systems: All systems reviewed & are unremarkable except as noted in Subjective Physical Exam Constitutional: + thin; no acute distress Eyes: PERRL, conjunctivae normal, anicteric sclerae ENMT: external ear and nose normal, oropharynx normal Neck: trachea midline, no thyromegaly Respiratory: normal respiratory effort Auscultation: + crackles (Fine bibasilar right greater than left) Cardiovascular: Rate/Rhythm: regular rate, regular rhythm and + bradycardic Vessels: no JVD Extremities: no edema Gastrointestinal (Abdomen): normal bowel sounds, soft, nontender, no hepatosplenomegaly Results & Data ([facility]) Vital Signs (Past 12 Hours) Vital Signs Temp Pulse Pulse Resp BP Pulse Ox 06/03/21 08:55 36.4 C L 70 18 93/58 L 97 06/03/21 03:35 36.9 C 76 94/56 L 95 06/03/21 00:03 77 Laboratory Results Laboratory Results - last 24 hr 06/03/21 06/03/21 06/03/21 05:46 05:50 05:50 WBC 6.16 RBC 1.95 L Hgb 7.5 L Hct 23.2 L MCV 119.0 H MCH 38.5 H MCHC 32.3 RDW Std Deviation 102.3 H RDW Coeff of Geovanni 23.8 H Plt Count 280 MPV 10.5 H Immature Gran % (Auto) 0.3 Neut % (Auto) 37.9 Lymph % (Auto) 47.7 [place] % (Auto) 12.8 Eos % (Auto) 0.5 Baso % (Auto) 0.8 Neut # (Auto) 2.33 Lymph # (Auto) 2.94 [place] # (Auto) 0.79 H Eos # (Auto) 0.03 Baso # (Auto) 0.05 Immature Gran # (Auto) 0.02 Macrocytosis Present Ovalocytes 1+ PT 15.3 H INR 1.6 H APTT 63.3 H* PTT Ratio 2.4 Sodium 139 Potassium 4.2 D Chloride 104 Carbon Dioxide 25 Anion Gap 10.0 BUN 82 H Creatinine 2.45 H Est Cr Clr Drug Dosing 22.9 Est GFR ( Amer) 27.8 Est GFR (Non-Af Amer) 24.0 BUN/Creatinine Ratio 33.5 H Glucose 119 H Calcium 8.8 Magnesium 2.5 H
[2021-06-03] MEDS: GABAPENTIN 100 MG CAP PO SCH (12:11)
[2021-06-03] MEDS: HEPARIN SODIUM/DEXTROSE 25,000 UNITS/500 ML BAG IV SCH (13:02)
--- NOTE | 2021-06-03 13:11 | Hospitalist Progress Note ---
Date of Service June 03, 2021 Assessment & Plan (1) Acute on chronic HFrEF (heart failure with reduced ejection fraction): (2) Ischemic cardiomyopathy: (3) Pleural effusion: Plan: per Dr. Spaulding's notes with addendum: (1) Acute on chronic HFrEF (heart failure with reduced ejection fraction): (1) Pleural effusion: R (1878 cc)>L (642 cc), 2/2 to above, s/p Rt thoracentesis 05/30 (2.2L out), Warfarin resumed 05/30, with bridging heparin. PT/INR daily, DC heparin when INR >1.9. Lt thora 05/31 w/ 1L serous fluid out. Has underlying ischemic cardiomyopathy with an EF 25% and is wearing a life vest which was given to him on hospital discharge 03/20/21. IV diuretics per nephrology with continued dyspnea on exertion. FR 1.5 L daily. Strict Is and Os. Anthony not feasible d/t recent UTI Continue Toprol XL and aspirin. RYLEE/ARB contraindicated in renal disease. Atorvastatin initially held in LFT elevation 2/2 congestive hepatopathy but this has been restarted. Defer diuretic titration to Cardiology and Nephrology teams --> being optimized, pt was hypotensive after midday dose of diuretic 06/02 diuresing well BP marginal but asymptomatic continue Torsemide 40 meq BID crea improving further to 2.2---> seems to be baseline replace K 06/03 diuresing well continue Torsemide, possible dose reduction tomorrow per Cardiology crea 2.2-2.4 PT and OT eval (2) Acute kidney injury superimposed on chronic kidney disease: Recent increased diuretic use as outpatient prior to hospitalization. Possible etiology also cardiorenal syndrome per nephro. Baseline creat 2.5. Cont IV diuretics per nephrology. Daily BMP, Cr seems to have improved 2.24 today. Nephrology having discussion regarding possible dialysis. Per Nephro, Pt likely needs to start planning for dialysis for volume control. 06/03 crea improved to 2.2-2.4 continue Torsemide PO (3) Ischemic cardiomyopathy: presumed per cardiology -> Lexiscan nuclear stress test demonstrated myocardial scar without superimposed ischemia, no benefit to cardiac cath at this time. Will need OP EP consultation (consideration for BALING MACHINE TENDER capable ICD after 3 months of evidence-based medical therapy (approx 06/26/21). (4) Ventricular tachycardia: maintains life vest. After foot and urine infections are cleared up, plan will be for outpatient EP consultation for consideration of BALING MACHINE TENDER capable ICD. Cardiology team to arrange at discharge. (5) Atrial fibrillation: Per cardiology, two brief episodes of afib noted 05/19 and . Continue amiodarone, Toprol-XL. Warfarin resumed 05/30; heparin drip as bridge--to stop when INR >1.9, daily pt/inr 06/02 INR 164 increase coumadin to 4mg ff up INR (6) Pain of left heel: Recent thrombectomy of his left lower extremity in Mar 2021 after an NSTEMI and bilateral thoracentesis. He is subsequently developed a pressure ulcer that was painful on the left heel. Vascular evaluated and no further interventions needed. Cont medical management of peripheral vascular disease. (7) Aortic stenosis: (8) Elevated transaminase level: Likely secondary to congestive hepatopathy, right upper quadrant ultrasound is within normal limits. This is improved and atorvastatin was restarted. (9) Anemia in CKD (chronic kidney disease): Continues on Procrit as outpatient. Hb is stable. (10) UTI (urinary tract infection): 05/20 urine culture positive for E. coli sensitive to cefepime and ceftriaxone. cefuroxime 05/24-05/28 to cefdinir 05/28 for 3 more days. 06/02 completed antibiotic course (11) DVT prophylaxis: Warfarin resumed, currently on bridging heparin. Full code Disposition-PT/OT recommending d/c home Will need OP EP consultation (consideration for BALING MACHINE TENDER capable ICD after 3 months of evidence-based medical therapy (approx 06/26/21). 05/30: Talked with Pt and his son (primary contact) about current status (need for dialysis, recurrent pleural effusion needing hospitalization and poor heart function), plan of care and code status/living will. They wouldn't want to explore palliative option now. Pt's son stated he will provide copy of living will to the hospital, will discuss about possibility of placing palliative pleurex catheter with patient after discussion with Cardio, and for now patient/his son wants Patient to be full code. Palliative care has full discussion with the patient and his son, Pt remains full code until BALING MACHINE TENDER-compatible ICD and Dialysis fails. Pt also would like to set up with [facility] palliative care as an outpatient. Admission and Anticipated Discharge Date Admission Date: May 14, 2021 Subjective ff up for CHF, etc seen resting in bed, comfortable not in distress report LUE is "twitchy" denies pain, numbness, paresthesias no chest pain, dyspnea, palpitations, dizziness had epistaxis this morning, resolved with application of pressure no other symptoms Review of Systems Review of Systems: all noted and negative except for above Physical Exam Physical Exam: General- oriented x 3, not in distress, speaks in sentences with no effort or accessory muscle use Eyes- anicteric Nose- minimal dried blood on the right nostril Neck- no JVD Lungs- clear breath sounds bilaterally, no rales/wheezes Heart- normal rate, regular rhythm; no murmurs Abdomen- normal bowel sounds, nondistended, soft, nontender Extremities- no pretibial edema, no calf tenderness Neuro- alert, oriented x 3; no gross focal neurologic deficits Skin- warm & dry Results & Data Results & Data ([facility]) Vital Signs (Past 12 Hours) Vital Signs Temp Pulse Pulse Resp BP BP Pulse Ox 06/03/21 12:37 36.5 C 67 18 100/62 97 06/03/21 11:55 36.7 C 89 18 154/73 H 96 06/03/21 09:20 72 06/03/21 08:55 36.4 C L 70 18 93/58 L 97 06/03/21 03:35 36.9 C 76 94/56 L 95 all noted and reviewed including below
[2021-06-03] MEDS: WARFARIN SOD 4 MG TAB PO SCH (16:05)
[2021-06-03] MEDS: DOCUSATE SODIUM/SENNA 50/8.6MG TAB PO SCH (21:48)
[2021-06-03] MEDS: METOPROLOL SUCC 25MG EXT REL TAB PO SCH (21:49)
[2021-06-04] MEDS: LEVOTHYROXINE SODIUM 75 MCG TABLET PO SCH (06:21)
[2021-06-04 07:45] LABS: Hematocrit (blood only) 21.4 % (42-52); Hemoglobin 6.9 g/dL (14.0-18.0); Mean Corpuscular Hemoglobin 38.3 pg (25-34); Mean Corpuscular Hgb Conc 32.2 g/dL (32-36); Mean Corpuscular Volume 118.9 fL (80-100); Mean Platelet Volume 9.7 fL (7.4-10.4); Platelet Count 258 K/uL (130-400); RDW Coefficient of Variation 23.7 % (11.5-14.5); RDW Standard Deviation 101.5 fL (36.4-46.3); White Blood Count 5.01 K/uL (4.8-10.8)
[2021-06-04] MEDS ORDERED: SODIUM CHLORIDE 0.9% 250 ML IV PRN (07:50)
[2021-06-04 07:59] LABS: INR 1.8 (0.9-1.1); Partial Thromboplastin Ratio 2.7; Prothrombin Time 17.7 Seconds (9.0-12.0)
[2021-06-04 08:00] LABS: Anisocytosis Present; Basophils # (auto) 0.02 K/uL (0-0.2); Basophils % (auto) 0.4 %; Eosinophils # (auto) 0.06 K/uL (0-0.5); Eosinophils % (auto) 1.2 %; Lymphocytes # (auto) 2.56 K/uL (1.2-3.4); Lymphocytes % (auto) 51.1 %; Macrocytosis Present; Monocytes # (auto) 0.38 K/uL (0.11-0.59); Monocytes % (auto) 7.6 %; Neutrophils # (auto) 1.99 K/uL (1.4-6.5); Neutrophils % (auto) 39.7 %; Poikilocytosis Present
[2021-06-04 08:01] LABS: BUN Creatinine Ratio 32.9 (10-20); Calcium 8.8 mg/dl (8.5-10.1); Creatinine Clr Calc Pharmacy 19.7 ml/min; Est GFR (African American) 23.1 ml/min; Magnesium 2.4 mg/dl (1.8-2.4); Potassium 4.4 mmol/L (3.5-5.1)
[2021-06-04] MEDS: AMIODARONE 200 MG TAB PO SCH (08:01)
[2021-06-04] MEDS: FLUTICASONE PROPIONATE NA SPR 16 GM BTL SCH (08:01)
[2021-06-04] MEDS: CHOLECALCIFEROL 1,000 UNITS 25 MCG TAB PO SCH (08:02)
[2021-06-04] MEDS: ASPIRIN 81 MG ECTAB PO SCH (08:02)
[2021-06-04] MEDS: AZELASTINE HCL 0.1% NASAL 200 SPRAYS/27,400 MCG BTL SCH ×2 (08:02→20:19)
[2021-06-04] MEDS: ATORVASTATIN 40 MG TAB PO SCH (08:02)
[2021-06-04] MEDS: CYANOCOBALAMIN 500 MCG TABLET (VITAMIN B-12) PO SCH (08:02)
[2021-06-04] MEDS: PYRIDOXINE HCL 50 MG TAB PO SCH ×2 (08:02→20:18)
[2021-06-04] MEDS: GABAPENTIN 100 MG CAP PO SCH (08:02)
[2021-06-04] MEDS: TORSEMIDE 10 MG TAB PO SCH (08:02)
[2021-06-04] MEDS: HEPARIN SODIUM/DEXTROSE 25,000 UNITS/500 ML BAG IV SCH ×2 (08:16→08:45)
[2021-06-04] MEDS ORDERED: FUROSEMIDE INJ 20 MG/2 ML VIAL IV ONE ×2 (11:00→13:30)
--- NOTE | 2021-06-04 11:01 | Cardiology Progress Note ---
Date of Service June 04, 2021 Assessment & Plan (1) Acute on chronic HFrEF (heart failure with reduced ejection fraction): Plan: Class III IV with recurrent pleural effusion (2) Ischemic cardiomyopathy: Plan: Lexiscan nuclear stress test demonstrates myocardial scar without superimposed ischemia. No benefit to cardiac cath at this time. (3) Atrial fibrillation: Plan: Paroxysmal controlled in sinus rhythm with amiodarone (4) UTI (urinary tract infection): (5) Acute kidney injury superimposed on chronic kidney disease: Plan: Patient appears to be approaching dry weight but exam suggests recurrence of right pleural effusion. Agree with transfusion We will hold p.m. dose of torsemide given planned IV furosemide after transfusion, rising creatinine. Torsemide may need to be reincreased depending on lab work in a.m. Chronic renal insufficiency remains limiting and patient may ultimately progress to dialysis Blood pressure and renal function will not allow RYLEE or ARB/Entresto. Anticipating referral for BiV pacer defibrillator post discharge Suspect patient's functional capacity will not allow patient to return to independent living at least initially placement option should be investigated Admission and Anticipated Discharge Date Admission Date: May 14, 2021 Subjective Patient was seen and examined, chart, medications, telemetry reviewed. No acute complaints this morning but more anemic on laboratory testing. Creatinine climbing slightly. No worsening shortness of breath or cough. No dizziness or lightheadedness. No arrhythmias on telemetry Review of Systems Review of Systems: All systems reviewed & are unremarkable except as noted in Subjective Physical Exam Constitutional: + thin; no acute distress Eyes: PERRL, conjunctivae normal, anicteric sclerae ENMT: external ear and nose normal, oropharynx normal Neck: trachea midline, no thyromegaly Respiratory: normal respiratory effort Auscultation: + diminished lung sounds (Right base) Cardiovascular: Rate/Rhythm: regular rate, regular rhythm and + bradycardic Vessels: no JVD Extremities: no edema Gastrointestinal (Abdomen): normal bowel sounds, soft, nontender, no hepatosplenomegaly Results & Data ([facility]) Vital Signs (Past 12 Hours) Vital Signs Temp Pulse Pulse Resp BP BP BP 06/04/21 10:23 36.4 C L 63 16 99/63 L 06/04/21 10:08 36.3 C L 64 16 98/58 L 06/04/21 09:50 36.5 C 65 16 95/60 L 06/04/21 07:48 36.7 C 67 18 96/61 L 06/04/21 07:35 64 06/04/21 02:44 36.6 C 68 18 101/64 06/04/21 00:00 64 Pulse Ox 06/04/21 10:23 97 06/04/21 10:08 96 06/04/21 09:50 94 06/04/21 07:48 96 06/04/21 07:35 06/04/21 02:44 97 06/04/21 00:00 Laboratory Results Laboratory Results - last 24 hr 06/03/21 06/03/21 06/03/21 05:50 05:50 10:42 WBC 6.16 RBC 1.95 L Hgb 7.5 L Hct 23.2 L MCV 119.0 H MCH 38.5 H MCHC 32.3 RDW Std Deviation 102.3 H RDW Coeff of Geovanni 23.8 H Plt Count 280 MPV 10.5 H Immature Gran % (Auto) 0.3 Neut % (Auto) 37.9 Lymph % (Auto) 47.7 Otoe % (Auto) 12.8 Eos % (Auto) 0.5 Baso % (Auto) 0.8 Neut # (Auto) 2.33 Lymph # (Auto) 2.94 Otoe # (Auto) 0.79 H Eos # (Auto) 0.03 Baso # (Auto) 0.05 Immature Gran # (Auto) 0.02 Poikilocytosis Anisocytosis Macrocytosis Present Ovalocytes 1+ PT INR APTT PTT Ratio Sodium 139 Potassium 4.2 D Chloride 104 Carbon Dioxide 25 Anion Gap 10.0 BUN 82 H Creatinine 2.45 H Est Cr Clr Drug Dosing 22.9 Est GFR ( Amer) 27.8 Est GFR (Non-Af Amer) 24.0 BUN/Creatinine Ratio 33.5 H Glucose 119 H Calcium 8.8 Magnesium 2.5 H Blood Type Blood Type Recheck O Positive Antibody Screen Crossmatch 06/04/21 06/04/21 06/04/21 07:10 07:10 07:10 WBC 5.01 RBC 1.80 L Hgb 6.9 L* Hct 21.4 L MCV 118.9 H MCH 38.3 H MCHC 32.2 RDW Std Deviation 101.5 H RDW Coeff of Geovanni 23.7 H Plt Count 258 MPV 9.7 Immature Gran % (Auto) 0.0 Neut % (Auto) 39.7 Lymph % (Auto) 51.1 Otoe % (Auto) 7.6 Eos % (Auto) 1.2 Baso % (Auto) 0.4 Neut # (Auto) 1.99 Lymph # (Auto) 2.56 Otoe # (Auto) 0.38 Eos # (Auto) 0.06 Baso # (Auto) 0.02 Immature Gran # (Auto) 0.00 Poikilocytosis Present Anisocytosis Present Macrocytosis Present Ovalocytes PT 17.7 H INR 1.8 H APTT 72.0 H* PTT Ratio 2.7 Sodium 138 Potassium 4.4 Chloride 104 Carbon Dioxide 26 Anion Gap 8.0 BUN 94 H Creatinine 2.85 H D Est Cr Clr Drug Dosing 19.7 Est GFR ( Amer) 23.1 Est GFR (Non-Af Amer) 20.0 BUN/Creatinine Ratio 32.9 H Glucose 104 H Calcium 8.8 Magnesium 2.4 Blood Type Blood Type Recheck Antibody Screen Crossmatch 06/04/21 07:10 WBC RBC Hgb Hct MCV MCH MCHC RDW Std Deviation RDW Coeff of Geovanni Plt Count MPV Immature Gran % (Auto) Neut % (Auto) Lymph % (Auto) Otoe % (Auto) Eos % (Auto) Baso % (Auto) Neut # (Auto) Lymph # (Auto) Otoe # (Auto) Eos # (Auto) Baso # (Auto) Immature Gran # (Auto) Poikilocytosis Anisocytosis Macrocytosis Ovalocytes PT INR APTT PTT Ratio Sodium Potassium Chloride Carbon Dioxide Anion Gap BUN Creatinine Est Cr Clr Drug Dosing Est GFR ( Amer) Est GFR (Non-Af Amer) BUN/Creatinine Ratio Glucose Calcium Magnesium Blood Type O Positive Blood Type Recheck Antibody Screen NEGATIVE Crossmatch See Detail
--- NOTE | 2021-06-04 11:16 | Hospitalist Progress Note ---
Date of Service June 04, 2021 Assessment & Plan (1) Acute on chronic HFrEF (heart failure with reduced ejection fraction): (2) Ischemic cardiomyopathy: (3) Pleural effusion: Plan: per Dr. Spaulding's notes with addendum: (1) Acute on chronic HFrEF (heart failure with reduced ejection fraction): (1) Pleural effusion: R (1878 cc)>L (642 cc), 2/2 to above, s/p Rt thoracentesis 05/30 (2.2L out), Warfarin resumed 05/30, with bridging heparin. PT/INR daily, DC heparin when INR >1.9. Lt thora 05/31 w/ 1L serous fluid out. Has underlying ischemic cardiomyopathy with an EF 25% and is wearing a life vest which was given to him on hospital discharge 03/20/21. IV diuretics per nephrology with continued dyspnea on exertion. FR 1.5 L daily. Strict Is and Os. Anthony not feasible d/t recent UTI Continue Toprol XL and aspirin. RYLEE/ARB contraindicated in renal disease. Atorvastatin initially held in LFT elevation 2/2 congestive hepatopathy but this has been restarted. Defer diuretic titration to Cardiology and Nephrology teams --> being optimized, pt was hypotensive after midday dose of diuretic 06/02 diuresing well BP marginal but asymptomatic continue Torsemide 40 meq BID crea improving further to 2.2---> seems to be baseline replace K 06/03 diuresing well continue Torsemide, possible dose reduction tomorrow per Cardiology crea 2.2-2.4 PT and OT eval 06/[address] Velasquez Will reduce torsemide today Monitor closely (2) Acute kidney injury superimposed on chronic kidney disease: Recent increased diuretic use as outpatient prior to hospitalization. Possible etiology also cardiorenal syndrome per nephro. Baseline creat 2.5. Cont IV diuretics per nephrology. Daily BMP, Cr seems to have improved 2.24 today. Nephrology having discussion regarding possible dialysis. Per Nephro, Pt likely needs to start planning for dialysis for volume control. 06/03 crea improved to 2.2-2.4 continue Torsemide PO 06/04 Creatinine increased to 2.8 Torsemide being reduced We will give Lasix 20 mg IV after 1 unit of packed RBC given (3) Ischemic cardiomyopathy: presumed per cardiology -> Lexiscan nuclear stress test demonstrated myocardial scar without superimposed ischemia, no benefit to cardiac cath at this time. Will need OP EP consultation (consideration for [employer] AG[employer]Y LICENSEE capable ICD after 3 months of evidence-based medical therapy (approx 06/26/21). (4) Ventricular tachycardia: maintains life vest. After foot and urine infections are cleared up, plan will be for outpatient EP consultation for consideration of [employer] LICENSEE capable ICD. Cardiology team to arrange at discharge. (5) Atrial fibrillation: Per cardiology, two brief episodes of afib noted 05/19 and . Continue amiodarone, Toprol-XL. Warfarin resumed 05/30; heparin drip as bridge--to stop when INR >1.9, daily pt/inr 06/02 INR 1.8 coumadin 4 mg DC heparin ff up INR (6) Pain of left heel: Recent thrombectomy of his left lower extremity in Mar 2021 after an NSTEMI and bilateral thoracentesis. He is subsequently developed a pressure ulcer that was painful on the left heel. Vascular evaluated and no further interventions needed. Cont medical management of peripheral vascular disease. (7) Aortic stenosis: (8) Elevated transaminase level: Likely secondary to congestive hepatopathy, right upper quadrant ultrasound is within normal limits. This is improved and atorvastatin was restarted. (9) Anemia in CKD (chronic kidney disease): Continues on Procrit as outpatient. 06/04 Hemoglobin 6.9 No signs of active bleeding 1 unit packed RBCs ordered (10) UTI (urinary tract infection): 05/20 urine culture positive for E. coli sensitive to cefepime and ceftriaxone. cefuroxime 05/24-05/28 to cefdinir 05/28 for 3 more days. 06/02 completed antibiotic course (11) DVT prophylaxis: Warfarin resumed, Full code Disposition-PT/OT recommending d/c home Will need OP EP consultation (consideration for REAL [employer] AGENCY LICENSEE capable ICD after 3 months of evidence-based medical therapy (approx 06/26/21). 05/30: Talked with Pt and his son (primary contact) about current status (need for dialysis, recurrent pleural effusion needing hospitalization and poor heart function), plan of care and code status/living will. They wouldn't want to explore palliative option now. Pt's son stated he will provide copy of living will to the hospital, will discuss about possibility of placing palliative pleurex catheter with patient after discussion with Cardio, and for now patient/his son wants Patient to be full code. Palliative care has full discussion with the patient and his son, Pt remains full code until REAL [employer] AGENCY LICENSEE-compatible ICD and Dialysis fails. Pt also would like to set up with [facility] palliative care as an outpatient. Admission and Anticipated Discharge Date Admission Date: May 14, 2021 Subjective Follow-up for acute on chronic CHF, acute renal failure, etc. Seen sitting up in bed, comfortable, not in distress, in good spirits Denies chest pain shortness of breath palpitations dizziness Left upper arm twitching resolved No abdominal pain, nausea vomiting, melena or hematochezia No signs of bleeding per patient No other symptoms Review of Systems Review of Systems: all noted and negative except for above Physical Exam Physical Exam: General- oriented x 3, not in distress, speaks in sentences with no effort or accessory muscle use Eyes- anicteric Neck- no JVD Lungs-decreased breath sounds left base, clear on the right No wheezing Heart- normal rate, regular rhythm; no murmurs Abdomen- normal bowel sounds, nondistended, soft, nontender Extremities- no pretibial edema, no calf tenderness Neuro- alert, oriented x 3; no gross focal neurologic deficits Skin- warm & dry Results & Data Results & Data ([facility]) Vital Signs (Past 12 Hours) Vital Signs Temp Pulse Pulse Resp BP BP BP 06/04/21 10:23 36.4 C L 63 16 99/63 L 06/04/21 10:08 36.3 C L 64 16 98/58 L 06/04/21 09:50 36.5 C 65 16 95/60 L 06/04/21 07:48 36.7 C 67 18 96/61 L 06/04/21 07:35 64 06/04/21 02:44 36.6 C 68 18 101/64 06/04/21 00:00 64 Pulse Ox 06/04/21 10:23 97 06/04/21 10:08 96 06/04/21 09:50 94 06/04/21 07:48 96 06/04/21 07:35 06/04/21 02:44 97 06/04/21 00:00 all noted and reviewed including below
[2021-06-04] MEDS ORDERED: EPOETIN ALFA 20,000 UNITS/ML VIAL SQ ONE (13:15)
[2021-06-04] MEDS: WARFARIN SOD 4 MG TAB PO SCH (15:34)
[2021-06-04] MEDS: DOCUSATE SODIUM/SENNA 50/8.6MG TAB PO SCH (20:18)
[2021-06-04] MEDS: METOPROLOL SUCC 25MG EXT REL TAB PO SCH (20:18)
[2021-06-04] MEDS: LORazepam 0.5 MG TAB PO PRN (20:25)
[2021-06-05] MEDS: LEVOTHYROXINE SODIUM 75 MCG TABLET PO SCH (05:35)
[2021-06-05 06:35] LABS: Prothrombin Time 19.3 Seconds (9.0-12.0)
[2021-06-05 07:58] LABS: Hemoglobin 8.7 g/dL (14.0-18.0); Mean Corpuscular Hemoglobin 37.7 pg (25-34); Mean Corpuscular Hgb Conc 33.5 g/dL (32-36); Mean Corpuscular Volume 112.6 fL (80-100); Mean Platelet Volume 10.4 fL (7.4-10.4); Platelet Count 267 K/uL (130-400); RDW Coefficient of Variation 25.4 % (11.5-14.5); RDW Standard Deviation 99.9 fL (36.4-46.3); Red Blood Count 2.31 M/uL (4.7-6.1); White Blood Count 6.71 K/uL (4.8-10.8)
[2021-06-05 08:04] LABS: BUN Creatinine Ratio 32.3 (10-20); Calcium 8.4 mg/dl (8.5-10.1); Creatinine Clr Calc Pharmacy 19.4 ml/min; Est GFR (African American) 22.7 ml/min; Est GFR (Non-African American) 19.6 ml/min
[2021-06-05] MEDS: CYANOCOBALAMIN 500 MCG TABLET (VITAMIN B-12) PO SCH (08:06)
[2021-06-05] MEDS: PYRIDOXINE HCL 50 MG TAB PO SCH ×2 (08:06→20:06)
[2021-06-05] MEDS: FLUTICASONE PROPIONATE NA SPR 16 GM BTL SCH (08:07)
[2021-06-05] MEDS: ATORVASTATIN 40 MG TAB PO SCH (08:07)
[2021-06-05] MEDS: CHOLECALCIFEROL 1,000 UNITS 25 MCG TAB PO SCH (08:07)
[2021-06-05] MEDS: ASPIRIN 81 MG ECTAB PO SCH (08:07)
[2021-06-05] MEDS: AMIODARONE 200 MG TAB PO SCH (08:07)
[2021-06-05] MEDS: TORSEMIDE 20 MG TAB PO SCH (08:07)
[2021-06-05] MEDS: AZELASTINE HCL 0.1% NASAL 200 SPRAYS/27,400 MCG BTL SCH ×2 (08:08→20:04)
[2021-06-05 08:20] LABS: Anisocytosis Present; Basophils # (auto) 0.02 K/uL (0-0.2); Basophils % (auto) 0.3 %; Eosinophils % (auto) 1.5 %; Immature Granulocytes # (auto) 0.02 K/uL (0.00-0.02); Immature Granulocytes % (auto) 0.3 %; Lymphocytes # (auto) 3.29 K/uL (1.2-3.4); Macrocytosis Present; Monocytes # (auto) 0.52 K/uL (0.11-0.59); Monocytes % (auto) 7.7 %; Neutrophils # (auto) 2.76 K/uL (1.4-6.5); Neutrophils % (auto) 41.2 %; Ovalocytes 1+
--- NOTE | 2021-06-05 13:31 | Hospitalist Progress Note ---
Date of Service June 05, 2021 Assessment & Plan (1) Acute on chronic HFrEF (heart failure with reduced ejection fraction): (2) Ischemic cardiomyopathy: (3) Pleural effusion: Plan: per Dr. Spaulding's notes with addendum: (1) Acute on chronic HFrEF (heart failure with reduced ejection fraction): (1) Pleural effusion: R (1878 cc)>L (642 cc), 2/2 to above, s/p Rt thoracentesis 05/30 (2.2L out), Warfarin resumed 05/30, with bridging heparin. PT/INR daily, DC heparin when INR >1.9. Lt thora 05/31 w/ 1L serous fluid out. Has underlying ischemic cardiomyopathy with an EF 25% and is wearing a life vest which was given to him on hospital discharge 03/20/21. IV diuretics per nephrology with continued dyspnea on exertion. FR 1.5 L daily. Strict Is and Os. Anthony not feasible d/t recent UTI Continue Toprol XL and aspirin. RYLEE/ARB contraindicated in renal disease. Atorvastatin initially held in LFT elevation 2/2 congestive hepatopathy but this has been restarted. Defer diuretic titration to Cardiology and Nephrology teams --> being optimized, pt was hypotensive after midday dose of diuretic 06/02 diuresing well BP marginal but asymptomatic continue Torsemide 40 meq BID crea improving further to 2.2---> seems to be baseline replace K 06/03 diuresing well continue Torsemide, possible dose reduction tomorrow per Cardiology crea 2.2-2.4 PT and OT eval 06/[address] Velasquez Will reduce torsemide today Monitor closely 06/05 Remains on room air Diuresing well -12 L fluid balance Torsemide reduced to 40 mg daily Creatinine 2.8 Monitor closely (2) Acute kidney injury superimposed on chronic kidney disease: Recent increased diuretic use as outpatient prior to hospitalization. Possible etiology also cardiorenal syndrome per nephro. Baseline creat 2.5. Cont IV diuretics per nephrology. Daily BMP, Cr seems to have improved 2.24 today. Nephrology having discussion regarding possible dialysis. Per Nephro, Pt likely needs to start planning for dialysis for volume control. 06/03 crea improved to 2.2-2.4 continue Torsemide PO 06/04 Creatinine increased to 2.8 Torsemide being reduced We will give Lasix 20 mg IV after 1 unit of packed RBC given 06/05 Hemoglobin improved from 6.9-8.9 Creatinine remains at 2.8 Monitor closely (3) Ischemic cardiomyopathy: presumed per cardiology -> Lexiscan nuclear stress test demonstrated myocardial scar without superimposed ischemia, no benefit to cardiac cath at this time. Will need OP EP consultation (consideration for VIDEOTAPE SALES REPRESENTATIVE capable ICD after 3 months of evidence-based medical therapy (approx 06/26/21). (4) Ventricular tachycardia: maintains life vest. After foot and urine infections are cleared up, plan will be for outpatient EP consultation for consideration of VIDEOTAPE SALES REPRESENTATIVE capable ICD. Cardiology team to arrange at discharge. (5) Atrial fibrillation: Per cardiology, two brief episodes of afib noted 05/19 and . Continue amiodarone, Toprol-XL. Warfarin resumed 05/30; heparin drip as bridge--to stop when INR >1.9, daily pt/inr 06/02 INR 2.0 coumadin 4 mg DC heparin ff up INR (6) Pain of left heel: Recent thrombectomy of his left lower extremity in Mar 2021 after an NSTEMI and bilateral thoracentesis. He is subsequently developed a pressure ulcer that was painful on the left heel. Vascular evaluated and no further interventions needed. Cont medical management of peripheral vascular disease. (7) Aortic stenosis: (8) Elevated transaminase level: Likely secondary to congestive hepatopathy, right upper quadrant ultrasound is within normal limits. This is improved and atorvastatin was restarted. (9) Anemia in CKD (chronic kidney disease): Continues on Procrit as outpatient. 06/05 1 unit packed RBCs ordered hg improved from 6.9-8.9 (10) UTI (urinary tract infection): 05/20 urine culture positive for E. coli sensitive to cefepime and ceftriaxone. cefuroxime 05/24-05/28 to cefdinir 05/28 for 3 more days. 06/02 completed antibiotic course (11) DVT prophylaxis: Warfarin resumed, Full code Disposition-PT/OT recommending d/c home Will need OP EP consultation (consideration for VIDEOTAPE SALES REPRESENTATIVE capable ICD after 3 months of evidence-based medical therapy (approx 06/26/21). 05/30: Talked with Pt and his son (primary contact) about current status (need for dialysis, recurrent pleural effusion needing hospitalization and poor heart function), plan of care and code status/living will. They wouldn't want to explore palliative option now. Pt's son stated he will provide copy of living will to the hospital, will discuss about possibility of placing palliative pleurex catheter with patient after discussion with Cardio, and for now patient/ his son wants Patient to be full code. Palliative care has full discussion with the patient and his son, Pt remains full code until VIDEOTAPE SALES REPRESENTATIVE-compatible ICD and Dialysis fails. Pt also would like to set up with [facility] [address] [facility] palliative care as an outpatient. Admission and Anticipated Discharge Date Admission Date: May 14, 2021 Subjective Follow-up for acute on chronic systolic CHF, acute renal failure on CKD, anemia, etc. Seen sitting up in bed, comfortable, watching TV States he feels slightly improved today compared to yesterday No chest pain, shortness of breath, palpitations, dizziness No bleeding No other symptoms Review of Systems Review of Systems: all noted and negative except for above Physical Exam Physical Exam: General- oriented x 3, not in distress, speaks in sentences with no effort or accessory muscle use Eyes- anicteric Neck- no JVD Lungs-mild decreased breath sounds on the right, clear on the left Heart- normal rate, regular rhythm; no murmurs Abdomen- normal bowel sounds, nondistended, soft, nontender Extremities- no pretibial edema, no calf tenderness Neuro- alert, oriented x 3; no gross focal neurologic deficits Skin- warm & dry Results & Data Results & Data ([facility]) Vital Signs (Past 12 Hours) Vital Signs Temp Pulse Pulse Resp BP BP Pulse Ox 06/05/21 10:59 36.3 C L 84 20 94/60 L 96 06/05/21 07:37 868 H 06/05/21 07:26 36.5 C 66 17 94/59 L 92 06/05/21 03:27 37.0 C 69 22 94/59 L 92 all noted and reviewed including below
[2021-06-05] MEDS: WARFARIN SOD 4 MG TAB PO SCH (16:54)
[2021-06-05] MEDS: METOPROLOL SUCC 25MG EXT REL TAB PO SCH (20:05)
[2021-06-05] MEDS: DOCUSATE SODIUM/SENNA 50/8.6MG TAB PO SCH (20:06)
[2021-06-05] MEDS ORDERED: GABAPENTIN 100 MG CAP PO SCH (21:00)
[2021-06-06] MEDS: LEVOTHYROXINE SODIUM 75 MCG TABLET PO SCH (06:10)
[2021-06-06 07:18] LABS: INR 2.2 (0.9-1.1); Prothrombin Time 21.2 Seconds (9.0-12.0)
[2021-06-06] MEDS: FLUTICASONE PROPIONATE NA SPR 16 GM BTL SCH (08:40)
[2021-06-06] MEDS: AZELASTINE HCL 0.1% NASAL 200 SPRAYS/27,400 MCG BTL SCH ×2 (08:40→21:17)
[2021-06-06] MEDS: PYRIDOXINE HCL 50 MG TAB PO SCH ×2 (08:40→21:18)
[2021-06-06] MEDS: ASPIRIN 81 MG ECTAB PO SCH (08:41)
[2021-06-06] MEDS: CYANOCOBALAMIN 500 MCG TABLET (VITAMIN B-12) PO SCH (08:41)
[2021-06-06] MEDS: CHOLECALCIFEROL 1,000 UNITS 25 MCG TAB PO SCH (08:41)
[2021-06-06] MEDS: ATORVASTATIN 40 MG TAB PO SCH (08:41)
[2021-06-06] MEDS: AMIODARONE 200 MG TAB PO SCH (08:41)
[2021-06-06] MEDS: TORSEMIDE 20 MG TAB PO SCH (08:41)
[2021-06-06 09:19] LABS: BUN Creatinine Ratio 33.6 (10-20); Calcium 8.4 mg/dl (8.5-10.1); Est GFR (African American) 26.5 ml/min; Est GFR (Non-African American) 22.8 ml/min; Potassium 3.3 mmol/L (3.5-5.1)
[2021-06-06 10:59] LABS: Hematocrit (blood only) 25.9 % (42-52); Hemoglobin 8.6 g/dL (14.0-18.0); Mean Corpuscular Hemoglobin 37.6 pg (25-34); Mean Corpuscular Hgb Conc 33.2 g/dL (32-36); Mean Corpuscular Volume 113.1 fL (80-100); Mean Platelet Volume 10.1 fL (7.4-10.4); Platelet Count 290 K/uL (130-400); RDW Coefficient of Variation 24.3 % (11.5-14.5); RDW Standard Deviation 97.4 fL (36.4-46.3); Red Blood Count 2.29 M/uL (4.7-6.1); White Blood Count 6.49 K/uL (4.8-10.8)
[2021-06-06 11:40] LABS: Anisocytosis Present; Basophils # (auto) 0.03 K/uL (0-0.2); Basophils % (auto) 0.5 %; Eosinophils # (auto) 0.08 K/uL (0-0.5); Eosinophils % (auto) 1.2 %; Immature Granulocytes # (auto) 0.01 K/uL (0.00-0.02); Immature Granulocytes % (auto) 0.2 %; Lymphocytes # (auto) 3.53 K/uL (1.2-3.4); Lymphocytes % (auto) 54.4 %; Macrocytosis Present; Monocytes # (auto) 0.59 K/uL (0.11-0.59); Monocytes % (auto) 9.1 %; Neutrophils # (auto) 2.25 K/uL (1.4-6.5); Neutrophils % (auto) 34.6 %; Ovalocytes 1+
--- NOTE | 2021-06-06 14:23 | Hospitalist Progress Note ---
Date of Service June 06, 2021 Assessment & Plan (1) Acute on chronic HFrEF (heart failure with reduced ejection fraction): (2) Ischemic cardiomyopathy: (3) Pleural effusion: Plan: per Dr. Spaulding's notes with addendum: (1) Acute on chronic HFrEF (heart failure with reduced ejection fraction): (1) Pleural effusion: R (1878 cc)>L (642 cc), 2/2 to above, s/p Rt thoracentesis 05/30 (2.2L out), Warfarin resumed 05/30, with bridging heparin. PT/INR daily, DC heparin when INR >1.9. Lt thora 05/31 w/ 1L serous fluid out. Has underlying ischemic cardiomyopathy with an EF 25% and is wearing a life vest which was given to him on hospital discharge 03/20/21. IV diuretics per nephrology with continued dyspnea on exertion. FR 1.5 L daily. Strict Is and Os. Anthony not feasible d/t recent UTI Continue Toprol XL and aspirin. RYLEE/ARB contraindicated in renal disease. Atorvastatin initially held in LFT elevation 2/2 congestive hepatopathy but this has been restarted. Defer diuretic titration to Cardiology and Nephrology teams --> being optimized, pt was hypotensive after midday dose of diuretic 06/02 diuresing well BP marginal but asymptomatic continue Torsemide 40 meq BID crea improving further to 2.2---> seems to be baseline replace K 06/03 diuresing well continue Torsemide, possible dose reduction tomorrow per Cardiology crea 2.2-2.4 PT and OT eval 06/[address] Velasquez Will reduce torsemide today Monitor closely 06/05 Remains on room air Diuresing well -12 L fluid balance Torsemide reduced to 40 mg daily Creatinine 2.8 Monitor closely 06/06 Remains on room air, saturating well -13 fluid balance Repeat chest x-ray today Continue torsemide 40 mg daily Creatinine 2.5 Monitor closely (2) Acute kidney injury superimposed on chronic kidney disease: Recent increased diuretic use as outpatient prior to hospitalization. Possible etiology also cardiorenal syndrome per nephro. Baseline creat 2.5. Cont IV diuretics per nephrology. Daily BMP, Cr seems to have improved 2.24 today. Nephrology having discussion regarding possible dialysis. Per Nephro, Pt likely needs to start planning for dialysis for volume control. 06/03 crea improved to 2.2-2.4 continue Torsemide PO 06/04 Creatinine increased to 2.8 Torsemide being reduced We will give Lasix 20 mg IV after 1 unit of packed RBC given 06/05 Hemoglobin improved from 6.9-8.9 Creatinine remains at 2.8 Monitor closely 06/06 Creatinine improved to 2.5 (3) Ischemic cardiomyopathy: presumed per cardiology -> Lexiscan nuclear stress test demonstrated myocardial scar without superimposed ischemia, no benefit to cardiac cath at this time. Will need OP EP consultation (consideration for DATA MINING ANALYST capable ICD after 3 months of evidence-based medical therapy (approx 06/26/21). (4) Ventricular tachycardia: maintains life vest. After foot and urine infections are cleared up, plan will be for outpatient EP consultation for consideration of DATA MINING ANALYST capable ICD. Cardiology team to arrange at discharge. (5) Atrial fibrillation: Per cardiology, two brief episodes of afib noted 05/19 and . Continue amiodarone, Toprol-XL. Warfarin resumed 05/30; heparin drip as bridge--to stop when INR >1.9, daily pt/inr INR 2.2 coumadin 4 mg DC heparin ff up INR (6) Pain of left heel: Recent thrombectomy of his left lower extremity in Mar 2021 after an NSTEMI and bilateral thoracentesis. He is subsequently developed a pressure ulcer that was painful on the left heel. Vascular evaluated and no further interventions needed. Cont medical management of peripheral vascular disease. (7) Aortic stenosis: (8) Elevated transaminase level: Likely secondary to congestive hepatopathy, right upper quadrant ultrasound is within normal limits. This is improved and atorvastatin was restarted. (9) Anemia in CKD (chronic kidney disease): Continues on Procrit as outpatient. 1 unit packed RBCs ordered hg improved from 6.9-8.9--> 8/5 (10) UTI (urinary tract infection): 05/20 urine culture positive for E. coli sensitive to cefepime and ceftriaxone. cefuroxime 05/24-05/28 to cefdinir 05/28 for 3 more days. 06/02 completed antibiotic course (11) DVT prophylaxis: Warfarin resumed, Full code Disposition-PT/OT recommending d/c home Will need OP EP consultation (consideration for DATA MINING ANALYST capable ICD after 3 months of evidence-based medical therapy (approx 06/26/21). 05/30: Talked with Pt and his son (primary contact) about current status (need for dialysis, recurrent pleural effusion needing hospitalization and poor heart function), plan of care and code status/living will. They wouldn't want to explore palliative option now. Pt's son stated he will provide copy of living will to the hospital, will discuss about possibility of placing palliative pleurex catheter with patient after discussion with Cardio, and for now patient/his son wants Patient to be full code. Palliative care has full discussion with the patient and his son, Pt remains full code until DATA MINING ANALYST-compatible ICD and Dialysis fails. Pt also would like to set up with [facility] palliative care as an outpatient. Admission and Anticipated Discharge Date Admission Date: May 14, 2021 Subjective ff up for acute CHF, anemia, etc seen resting in bed, comfortable in good spirits states he feels fine overall no problems with breathing no chest pain no bleeding denies other symptoms Review of Systems Review of Systems: all noted and negative except for above Physical Exam Physical Exam: General- oriented x 3, not in distress, speaks in sentences with no effort or accessory muscle use Eyes- anicteric Neck- no JVD Lungs-decreased breath sounds on the right, clear on the left Heart- normal rate, regular rhythm; no murmurs Abdomen- normal bowel sounds, nondistended, soft, nontender Extremities- no pretibial edema, no calf tenderness Neuro- alert, oriented x 3; no gross focal neurologic deficits Skin- warm & dry Results & Data Results & Data ([facility]) Vital Signs (Past 12 Hours) Vital Signs Temp Pulse Pulse Resp BP Pulse Ox 06/06/21 11:36 36.7 C 76 19 96/64 L 94 06/06/21 10:19 72 06/06/21 07:43 36.7 C 82 19 99/60 L 91 06/06/21 04:31 36.5 C 83 20 95/58 L 95 all noted and reviewed including below
[2021-06-06] MEDS: WARFARIN SOD 4 MG TAB PO SCH (17:01)
[2021-06-06] MEDS: GABAPENTIN 100 MG CAP PO SCH (17:04)
--- NOTE | 2021-06-06 17:10 | XRay Report ---
XR chest 1V portable CLINICAL HISTORY: ff up pleural effusion. COMPARISON STUDY: 05/31/2021 TECHNIQUE: 1 view of the chest FINDINGS: Single frontal view of the chest demonstrates the cardiomediastinal silhouette to be within normal li mits. Compared to previous examination, there continues to be interval increase in right pleural effu frankie which is now moderate in size. There is associated right basilar atelectasis. There are minimal left pleural effusion is also present. The remainder the lungs are clear. There is no evidence for pl eural effusion. There is no evidence for vascular congestion. There is no acute osseous pathology. IMPRESSION: Interval worsening of right pleural effusion which is now moderate in degree with right b asilar atelectasis. Minimal blunting of the left costophrenic angle is also present. ACT 112: Negative or not required by law. Electronically signed by: Mohan Rueda M.D. 06/06/2021 5:08 PM
[2021-06-06] MEDS: METOPROLOL SUCC 25MG EXT REL TAB PO SCH (21:17)
[2021-06-06] MEDS: DOCUSATE SODIUM/SENNA 50/8.6MG TAB PO SCH (21:18)
[2021-06-06] MEDS: POLYETHYLENE (MIRALAX) 17 GM PACK PO PRN (23:12)
[2021-06-07] MEDS: LEVOTHYROXINE SODIUM 75 MCG TABLET PO SCH (05:37)
[2021-06-07 06:04] LABS: INR 2.2 (0.9-1.1); Prothrombin Time 20.9 Seconds (9.0-12.0)
[2021-06-07 06:15] LABS: Calcium 8.4 mg/dl (8.5-10.1); Creatinine Clr Calc Pharmacy 23.8 ml/min; Est GFR (African American) 29.2 ml/min; Est GFR (Non-African American) 25.2 ml/min
[2021-06-07] MEDS ORDERED: POTASSIUM CHLORIDE CRTAB 20 MEQ TABCR PO STA (06:38)
[2021-06-07] MEDS ORDERED: POTASSIUM CHLORIDE / WTR 10 MEQ/100 ML PLCT IV ONE (06:45)
[2021-06-07] MEDS: FLUTICASONE PROPIONATE NA SPR 16 GM BTL SCH (08:40)
[2021-06-07] MEDS: PYRIDOXINE HCL 50 MG TAB PO SCH ×2 (08:42→20:59)
[2021-06-07] MEDS: ATORVASTATIN 40 MG TAB PO SCH (08:42)
[2021-06-07] MEDS: CYANOCOBALAMIN 500 MCG TABLET (VITAMIN B-12) PO SCH (08:42)
[2021-06-07] MEDS: ASPIRIN 81 MG ECTAB PO SCH (08:42)
[2021-06-07] MEDS: AZELASTINE HCL 0.1% NASAL 200 SPRAYS/27,400 MCG BTL SCH ×2 (08:45→20:59)
[2021-06-07] MEDS: CHOLECALCIFEROL 1,000 UNITS 25 MCG TAB PO SCH (08:46)
[2021-06-07] MEDS: TORSEMIDE 20 MG TAB PO SCH (08:55)
[2021-06-07] MEDS: AMIODARONE 200 MG TAB PO SCH (08:55)
[2021-06-07 09:30] LABS: Basophils # (auto) 0.04 K/uL (0-0.2); Basophils % (auto) 0.6 %; Eosinophils % (auto) 1.4 %; Hematocrit (blood only) 26.3 % (42-52); Hemoglobin 8.6 g/dL (14.0-18.0); Immature Granulocytes # (auto) 0.02 K/uL (0.00-0.02); Immature Granulocytes % (auto) 0.3 %; Lymphocytes # (auto) 3.26 K/uL (1.2-3.4); Lymphocytes % (auto) 47.2 %; Mean Corpuscular Hemoglobin 37.1 pg (25-34); Mean Corpuscular Hgb Conc 32.7 g/dL (32-36); Mean Corpuscular Volume 113.4 fL (80-100); Mean Platelet Volume 9.8 fL (7.4-10.4); Monocytes # (auto) 0.71 K/uL (0.11-0.59); Monocytes % (auto) 10.3 %; Neutrophils # (auto) 2.78 K/uL (1.4-6.5); Neutrophils % (auto) 40.2 %; Platelet Count 333 K/uL (130-400); RDW Coefficient of Variation 23.5 % (11.5-14.5); RDW Standard Deviation 93.3 fL (36.4-46.3); Red Blood Count 2.32 M/uL (4.7-6.1); White Blood Count 6.91 K/uL (4.8-10.8)
[2021-06-07] MEDS: POTASSIUM CHLORIDE CRTAB 20 MEQ TABCR PO SCH ×2 (10:11→20:57)
[2021-06-07 10:20] LABS: Anisocytosis Present; Macrocytosis Present; Ovalocytes 1+; Polychromasia 1+; Tear Drop Cells 1+
--- NOTE | 2021-06-07 13:44 | Hospitalist Progress Note ---
Date of Service June 07, 2021 Assessment & Plan (1) Acute on chronic HFrEF (heart failure with reduced ejection fraction): (2) Ischemic cardiomyopathy: (3) Pleural effusion: Plan: per Dr. Spaulding's notes with addendum: (1) Acute on chronic HFrEF (heart failure with reduced ejection fraction): (1) Pleural effusion: R (1878 cc)>L (642 cc), 2/2 to above, s/p Rt thoracentesis 05/30 (2.2L out), Warfarin resumed 05/30, with bridging heparin. PT/INR daily, DC heparin when INR >1.9. Lt thora 05/31 w/ 1L serous fluid out. Has underlying ischemic cardiomyopathy with an EF 25% and is wearing a life vest which was given to him on hospital discharge 03/20/21. IV diuretics per nephrology with continued dyspnea on exertion. FR 1.5 L daily. Strict Is and Os. Anthony not feasible d/t recent UTI Continue Toprol XL and aspirin. RYLEE/ARB contraindicated in renal disease. Atorvastatin initially held in LFT elevation 2/2 congestive hepatopathy but this has been restarted. Defer diuretic titration to Cardiology and Nephrology teams --> being optimized, pt was hypotensive after midday dose of diuretic 06/02 diuresing well BP marginal but asymptomatic continue Torsemide 40 meq BID crea improving further to 2.2---> seems to be baseline replace K 06/03 diuresing well continue Torsemide, possible dose reduction tomorrow per Cardiology crea 2.2-2.4 PT and OT eval 06/[address] Velasquez Will reduce torsemide today Monitor closely 06/05 Remains on room air Diuresing well -12 L fluid balance Torsemide reduced to 40 mg daily Creatinine 2.8 Monitor closely 06/06 Remains on room air, saturating well -13 fluid balance Repeat chest x-ray today Continue torsemide 40 mg daily Creatinine 2.5 Monitor closely 06/07 on room air -15 L fluid balance crea stable at 2.3 but BP on the lower side hold torsemide today repeat CXR: increased R sided pleural effusion Pulmonary reconsulted, contemplating Pleurex cath placement- requested to hold Warfarin also messaged Cardiology service for re-eval today (2) Acute kidney injury superimposed on chronic kidney disease: Recent increased diuretic use as outpatient prior to hospitalization. Possible etiology also cardiorenal syndrome per nephro. Baseline creat 2.5. Cont IV diuretics per nephrology. Daily BMP, Cr seems to have improved 2.24 today. Nephrology having discussion regarding possible dialysis. Per Nephro, Pt likely needs to start planning for dialysis for volume control. 06/03 crea improved to 2.2-2.4 continue Torsemide PO 06/04 Creatinine increased to 2.8 Torsemide being reduced We will give Lasix 20 mg IV after 1 unit of packed RBC given 06/05 Hemoglobin improved from 6.9-8.9 Creatinine remains at 2.8 Monitor closely 06/06 Creatinine improved to 2.5 06/07 crea 2.3 (baseline) discussed with Dr. Lundy, hemodialysis not indicated (3) Ischemic cardiomyopathy: presumed per cardiology -> Lexiscan nuclear stress test demonstrated myocardial scar without superimposed ischemia, no benefit to cardiac cath at this time. Will need OP EP consultation (consideration for KNOBBER capable ICD after 3 months of evidence-based medical therapy (approx 06/26/21). (4) Ventricular tachycardia: maintains life vest. After foot and urine infections are cleared up, plan will be for outpatient EP consultation for consideration of KNOBBER capable ICD. Cardiology team to arrange at discharge. (5) Atrial fibrillation: Per cardiology, two brief episodes of afib noted 05/19 and . Continue amiodarone, Toprol-XL. Warfarin resumed 05/30; heparin drip as bridge--to stop when INR >1.9, daily pt/inr INR 2.2 coumadin 4 mg DC heparin ff up INR hold coumadin today per Pulm for pleurex cath placement evaluation (6) Pain of left heel: Recent thrombectomy of his left lower extremity in Mar 2021 after an NSTEMI and bilateral thoracentesis. He is subsequently developed a pressure ulcer that was painful on the left heel. Vascular evaluated and no further interventions needed. Cont medical management of peripheral vascular disease. (7) Aortic stenosis: (8) Elevated transaminase level: Likely secondary to congestive hepatopathy, right upper quadrant ultrasound is within normal limits. This is improved and atorvastatin was restarted. (9) Anemia in CKD (chronic kidney disease): Continues on Procrit as outpatient. 1 unit packed RBCs ordered hg improved from 6.9-8.9--> 8.5 (10) UTI (urinary tract infection): 05/20 urine culture positive for E. coli sensitive to cefepime and ceftriaxone. completed antibiotic course- Cefuroxime and Cefdinir (11) DVT prophylaxis: INR 2.2 Full code Disposition-PT/OT recommending d/c home Will need OP EP consultation (consideration for KNOBBER capable ICD after 3 months of evidence-based medical therapy (approx 06/26/21). Admission and Anticipated Discharge Date Admission Date: May 14, 2021 Subjective ff up for acute hypoxic respiratory failure, etc seen resting in bed, comfortable on room air states he feels fair today feels discouraged explained current management to patient including Pulmonology consultation again for increasing R sided pleural effusion no chest pain, dyspnea, palpitations, dizziness no bleeding no other symptoms Review of Systems Review of Systems: all noted and negative except for above Physical Exam Physical Exam: General- oriented x 3, not in distress, speaks in sentences with no effort or accessory muscle use Eyes- anicteric Neck- no JVD Lungs- decreased breath sounds on the right, clear on the left no wheezing Heart- normal rate, regular rhythm; no murmurs Abdomen- normal bowel sounds, nondistended, soft, nontender Extremities- no pretibial edema, no calf tenderness Neuro- alert, oriented x 3; no gross focal neurologic deficits Skin- warm & dry Results & Data Results & Data ([facility]) Vital Signs (Past 12 Hours) Vital Signs Temp Pulse Pulse Resp BP BP Pulse Ox 06/07/21 08:46 90/48 L 06/07/21 08:14 80 06/07/21 08:02 36.3 C L 64 18 88/49 L 93 06/07/21 04:10 36.8 C 87 20 93/61 L 90 all noted and reviewed including below
--- NOTE | 2021-06-07 13:56 | Pulmonology Progress Note ---
Date of Service June 07, 2021 Assessment & Plan (1) Bilateral pleural effusion: Plan: Attending: Dr. Montague Impression: 81-year-old male with history of transudate of pleural effusions. Right thoracentesis 05/30/2021 for 2200 cc. Left thoracentesis 05/31/2021 for 1000 cc. Patient is not on oxygen but does complain of some shortness of breath with exertion. There has been discussion about pacemaker with no clear plan at this time. Patient has received physical therapy 05/17, 05/21, 06/03. Nursing reports that the patient has been ambulating in the room but not in the hallway. He has had no desaturation with ambulation but does feel short of breath. C ardiology following for consideration of BiV pacer/defibrillator. Nephrology has been following for possibility of dialysis for fluid management. Recommendations: 1. Bilateral pleural effusions: * Right-sided thoracentesis 05/30/2021 with 2200 cc evacuated * Left-sided thoracentesis 05/31/2021 with 1000 cc evacuated * Chest x-ray last evening with blunting on the left and moderate effusion reacc umulated on the right. * Reconsulted for evaluation of Pleurx catheter versus repeat thoracentesis ba sed on chest x-ray alone. Patient with no worsening symptoms and no hypoxia Multidisciplinary review: I called the son Grey and had a 23-minute discussion regarding care plan and progress so far. I then called Dr. Mendiola as well to coordinate care. The following issues were identified that need to be coordinated: 1. The son reports no contact from any providers since last Monday. Would like to have regular updates regarding care plan. Discussed with Dr. Mendiola for coordinated communication 2. It is still unclear to the patient whether or not they were going to have a BiV defibrillator placed. It was discussed the Dr. Parr was going to see the patient as an outpatient on Monday. Son questions whether pacemaker can be placed here during this admission 3. Recurrent right pleural effusion with recent thoracentesis 05/30/2021. No benefit to serial thoracentesis as fluid will continue to reaccumulate due to severe heart failure. Patient and son with the understanding that if a pacemaker is placed that it may improve cardiac function and eliminate need for further thoracentesis. Suggest holding warfarin until plan for further pleural intervention or pacemaker finalized Pleurx catheter would be considered for palliation and is not appropriate at this time unless patient chooses palliative care route. Serial thoracentesis is not the most effective management of recurrent pleural fluid secondary to heart failure 4. Son was told that patient may need dialysis for fluid management. Son again states that if BiV pacer/defibrillator is placed that it may increase renal function as well as heart function. This needs to be clarified with c ardiology 5. Son was told that patient may need transferred to [facility] for pacemaker placement. Unclear as to why this cannot be done at [facility]. I would be glad to be involved in any discussion with the son but from this point forward will be involved with pulmonary issues only. Please advise how we can help. Admission and Anticipated Discharge Date Admission Date: May 14, 2021 Subjective Attending: Dr. Montague This is an 81-year-old male admitted 05/15/2021 with history of previous pleural effusion secondary to heart failure. Patient has reduced ejection fraction 20 to 25% and required LifeVest prior to admission. He currently is in telemetry and on monitoring. It has been difficult to diurese the patient secondary to hypotension. Patient did undergo thoracentesis 05/30/2021 on the right and 05/31/2021 on the left. Patient realizes little benefit symptomatically. Patient had 2200 cc of fluid removed from the right and left 1000 mL from the left. Patient was resumed back on Coumadin and currently has an INR of 2.2. Reconsult placed due to chest x-ray not symptomatic complaints. I did have long discussion with the patient. He has been followed by Dr. Velasquez and has confidence in his recommendations. Patient is being reviewed for biventricular pacemaker defibrillator and it is unclear as to when this will be performed. There is also question as to whether the patient needs to be transferred to [facility] or whether the pacemaker can be placed here. There was some discussion of consultation with Dr. Wilson for evaluation of EP. There was also discussion regarding nephrology and whether patient would benefit from hemodialysis for fluid management. Spoke at length with patient's son Grey who is frustrated at the apparent lack of coordination and communication between medical disciplines. He reports that he has had no contact from any provider since 06/02/2021. I called the patient's son at 1:20 PM and spent 22 minutes of 46 seconds in conversation about care with his father. I then spoke with Dr. Mendiola and discussed the need to have multidisciplinary call to the son tomorrow to finalize a plan. I also suggested that the warfarin be held at this point in the event the patient needed pleural procedure or pacemaker placement. Review of Systems Review of Systems: All systems reviewed & are unremarkable except as noted in Subjective Physical Exam Physical Exam: GENERAL : No acute distress. Patient frustrated as he has been here almost 30 days. Patient reports easy dyspnea with minimal exertion. EYES: No icterus, gaze conjugate NOSE: No evidence of epistaxis MOUTH: No lesions or candidiasis NECK: Supple LUNGS: Decreased breath sounds bilaterally. Patient with faint expirational wheezes. No evidence of acute distress. No use of accessory muscles. HEART: Regular, rate controlled ABDOMEN: Soft, NT, ND, BS Present EXTREMITIES: No LE edema, pedal pulses intact NEURO: A&OX3 Results & Data Results & [facility] ([facility]) Vital Signs (Past 12 Hours) Vital Signs Temp Pulse Pulse Resp BP BP Pulse Ox 06/07/21 08:46 90/48 L 06/07/21 08:14 80 06/07/21 08:02 36.3 C L 64 18 88/49 L 93 06/07/21 04:10 36.8 C 87 20 93/61 L 90 Laboratory Results 06/07/21 09:13 06/07/21 05:35 INR 2.2 (0.9-1.1) H 06/07/21 05:35 Diagnostic Findings Chest X-Ray 06/06/21 14:32 XR chest 1V portable CLINICAL HISTORY: ff up pleural effusion. COMPARISON STUDY: 05/31/2021 TECHNIQUE: 1 view of the chest FINDINGS: Single frontal view of the chest demonstrates the cardiomediastinal silhouette to be within normal limits. Compared to previous examination, there continues to be interval increase in right pleural effusion which is now moderate in size. There is associated right basilar atelectasis. There are minimal left pleural effusion is also present. The remainder the lungs are clear. There is no evidence for pleural effusion. There is no evidence for vascular congestion. There is no acute osseous pathology. IMPRESSION: Interval worsening of right pleural effusion which is now moderate in degree with right basilar atelectasis. Minimal blunting of the left costophrenic angle is also present. ACT 112: Negative or not required by law. Electronically signed by: Mohan Rueda M.D. 06/06/2021 5:08 PM PG Care Time/CCT Total # of Minutes Spent Total Time Spent with Patient: Total time spent is greater than 50% in coordination of care (as documented) at patient's floor/unit and/or counseling patient: 45 minutes including discussion with patient, patient's son, Dr. Mendiola Coding Level of Care Code 67251 Subseq Hosp Care Lvl 2 (25 - SIGNIFICANT, SEPARATELY IDENTIFIABLE ) Diagnoses Bilateral pleural effusion J90 Time Spent (min) 45
[2021-06-07] MEDS: GABAPENTIN 100 MG CAP PO SCH (16:04)
--- NOTE | 2021-06-07 16:14 | Cardiology Progress Note ---
Date of Service June 07, 2021 Assessment & Plan (1) Acute on chronic HFrEF (heart failure with reduced ejection fraction): Plan: Class III IV with recurrent pleural effusion (2) Ischemic cardiomyopathy: Plan: Lexiscan nuclear stress test demonstrates myocardial scar without superimposed ischemia. No benefit to cardiac cath at this time. (3) Atrial fibrillation: Plan: Paroxysmal controlled in sinus rhythm with amiodarone (4) UTI (urinary tract infection): (5) Acute kidney injury superimposed on chronic kidney disease: Plan: asked to reevaluate patient by Dr. Mendiola after son questioned if device could be placed this admission Chronic renal insufficiency remains limiting and patient may ultimately progress to dialysis Blood pressure and renal function will not allow RYLEE or ARB/Entresto. Anticipating referral for BiV pacer defibrillator post discharge Suspect patient's functional capacity will not allow patient to return to independent living at least initially placement option should be investigated No cardiac indication for device placement urgently recommend maintaining original plan to medically optimize patient and have him seen by EP as an outpatient, discussed with EP, agree that patient needs to be medically optimized prior to device placement especially with concern for possible device infection Also, resynchronization therapy is not an immediate treatment for acute decompensated heart failure and it will take some time to see any clinical benefit. Admission and Anticipated Discharge Date Admission Date: May 14, 2021 Subjective Pt seen and examined, chart reviewed. Out of bed in chair and states that he feels well. Denies any chest pain, shortness of breath, palpitations, lightheadedness, dizziness or syncope. tele reviewed: sinus rhythm Review of Systems Review of Systems: All systems reviewed & are unremarkable except as noted in HPI & below Physical Exam Physical Exam: General: Awake, alert and oriented x 3. No acute distress. HEENT: Normocephalic, atraumatic. Pupils equal, round and reactive to light and accommodation. Extraocular muscles are intact. Anicteric sclera. Moist mucous membranes. Neck: No JVD. No bruit. Cardiovascular: Regular. Positive S-4. Normal S-1 and S-2. No S-3. No murmurs or rubs. Pulmonary: decreased breath sounds in b/l bases Abdomen: Bowel sounds x 4, soft. No rebound, guarding or tenderness. No organomegaly. Extremities: No clubbing, cyanosis or edema. +2 pedal pulses bilaterally. Skin: Warm and dry. Results & Data ([facility]) Vital Signs (Past 12 Hours) Vital Signs Temp Pulse Pulse Resp BP BP Pulse Ox 06/07/21 16:08 75 06/07/21 08:46 90/48 L 06/07/21 08:14 80 06/07/21 08:02 36.3 C L 64 18 88/49 L 93
[2021-06-07] MEDS: METOPROLOL SUCC 25MG EXT REL TAB PO SCH (20:58)
[2021-06-07] MEDS: DOCUSATE SODIUM/SENNA 50/8.6MG TAB PO SCH (21:00)
[2021-06-08] MEDS: LEVOTHYROXINE SODIUM 75 MCG TABLET PO SCH (06:16)
[2021-06-08 07:20] LABS: INR 2.3 (0.9-1.1); Prothrombin Time 21.6 Seconds (9.0-12.0)
[2021-06-08 07:49] LABS: BUN Creatinine Ratio 36.4 (10-20); Calcium 8.9 mg/dl (8.5-10.1); Creatinine Clr Calc Pharmacy 24.3 ml/min; Est GFR (African American) 29.8 ml/min; Est GFR (Non-African American) 25.7 ml/min; Potassium 4.7 mmol/L (3.5-5.1)
[2021-06-08] MEDS: POTASSIUM CHLORIDE CRTAB 20 MEQ TABCR PO SCH (08:25)
[2021-06-08] MEDS: AMIODARONE 200 MG TAB PO SCH (08:25)
[2021-06-08] MEDS: CHOLECALCIFEROL 1,000 UNITS 25 MCG TAB PO SCH (08:26)
[2021-06-08] MEDS: ASPIRIN 81 MG ECTAB PO SCH (08:26)
[2021-06-08] MEDS: PYRIDOXINE HCL 50 MG TAB PO SCH ×2 (08:26→20:58)
[2021-06-08] MEDS: ATORVASTATIN 40 MG TAB PO SCH (08:26)
[2021-06-08] MEDS: AZELASTINE HCL 0.1% NASAL 200 SPRAYS/27,400 MCG BTL SCH ×2 (08:27→20:57)
[2021-06-08] MEDS: CYANOCOBALAMIN 500 MCG TABLET (VITAMIN B-12) PO SCH (08:27)
[2021-06-08] MEDS: FLUTICASONE PROPIONATE NA SPR 16 GM BTL SCH (08:27)
[2021-06-08] MEDS ORDERED: PROMETHAZINE HCL 6.25 MG in SODIUM CHLORIDE 0.9% 50 ML IV STA (10:59)
--- NOTE | 2021-06-08 11:45 | Nephrology Progress Note ---
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 Baseline creatinine of 2.5. Admission creatinine of 3.8 and plateau'd mid 2's for several days. -Continue torsemide 40 daily now -k.cl 40 daily. Stop If torsemide stopped -cont dialysis diet and 1.5L FR -Monitor input output - needs I/O best we can -Daily BMP --Follows with Dr. Keyes and will do that as outpt. Current creat is not high enough for Chronic Dialysis (2) Acute decompensated heart failure: Plan: Patient with a low EF of 25% and pulmonary hypertension. Longer term for OP EP consult mid June, after appropriate medical tx window/optimization -diuretics iv as above for inpatient.He needs lot higher oral demadex dose as outpt. Seems was doing better with torsemide 40 bid but says felt " bad" on that dose but he needs a higher dose. 40 mg is minimum and likely needs higher dose than that. Also tolerate BP as low as 90 systolic before holding torsemide. (3) Anemia due to chronic disease treated with erythropoietin: Plan: Patient received Procrit 20k units. We will continue to monitor and give Procrit weekly while here inpt but even with this has low Hgb and low response. Subjective Seen for CKD and CHF. Says he feels better. had low BP yesterday. No major SOB. had right thoracentesis Review of Systems Review of Systems: All other systems were reviewed and negative except as noted in HPI Physical Exam Physical Exam: General exam: Appears comfortable, no acute distress HEENT: Pupils are equal and reactive to light Neck: No JVD, neck is supple trachea is midline Respiratory system: Reduced breath sounds in the bases bilaterally. Gastrointestinal: Abdomen is soft, non distended, non tender, bowel sounds are present CVS: Regular rate and rhythm. No murmurs, rubs or gallops Musculoskeletal: No joint or muscle tenderness Extremities: Non tender, trace edema, peripheral pulses are present Neuro: Oriented, no tremors, no focal neurological deficits Skin: No rashes Results & Data ([facility]) Vital Signs (Past 12 Hours) Vital Signs Temp Pulse Pulse Resp BP BP Pulse Ox 06/08/21 08:00 36.6 C 76 88 18 121/67 98 06/08/21 03:47 36.5 C 77 18 108/68 92
[2021-06-08] MEDS: TORSEMIDE 10 MG TAB PO SCH (12:14)
[2021-06-08] MEDS ORDERED: XOPENEX/ATROVENT 1.25mg/0.5MG NEB COMBO NEB PRN (13:46)
[2021-06-08] MEDS ORDERED: XOPENEX/ATROVENT 1.25mg/0.5MG NEB COMBO NEB STA (13:46)
[2021-06-08] MEDS ORDERED: IPRATROPIUM BROMIDE NEB SOLN 0.02% 2.5 ML VIAL INH STA (13:51)
[2021-06-08] MEDS ORDERED: LEVALBUTEROL 1.25MG/0.5ML NEB INH STA (13:51)
[2021-06-08] MEDS ORDERED: LEVALBUTEROL 1.25MG/0.5ML NEB INH PRN (13:53)
[2021-06-08] MEDS ORDERED: FUROSEMIDE INJ 20 MG/2 ML VIAL IV ONE (13:58)
[2021-06-08] MEDS ORDERED: IPRATROPIUM BROMIDE NEB SOLN 0.02% 2.5 ML VIAL INH PRN (14:00)
[2021-06-08] MEDS ORDERED: LEVALBUTEROL 1.25MG/0.5ML NEB INH SCH (14:00)
[2021-06-08] MEDS ORDERED: FUROSEMIDE 40 MG/4 ML VIAL IV ONE ×2 (14:01→20:00)
--- NOTE | 2021-06-08 14:05 | XRay Report ---
XR chest 1V portable CLINICAL HISTORY: Follow-up bilateral pleural effusions. COMPARISON STUDY: 06/04/2021 TECHNIQUE: 1 view of the chest FINDINGS: Single frontal view of the chest demonstrates the cardiomediastinal silhouette to be within normal li mits. Compared to the previous examination, moderate right-sided pleural effusion and small left pleu ral effusion are again seen. There is haziness present involving both lungs characteristic of the flu id layering along the posterior gutters. There is also bibasilar atelectasis with no focal alveolar o pacities. There is no evidence for vascular congestion. There is no acute osseous pathology. IMPRESSION: Moderate size right pleural effusion and small left pleural effusion are again seen along with bibasilar atelectasis. ACT 112: Negative or not required by law. Electronically signed by: Mohan Rueda M.D. 06/08/2021 2:04 PM
[2021-06-08] MEDS ORDERED: MoRPHine SULFATE 2 MG/ML CARP ONE (14:10)
[2021-06-08 15:33] LABS: Base Excess ABG -1.9 mEq/L (-9-1.8); HCO3 ABG 22 mmol/L (19-24); Oxygen Saturation ABG 98.8 % (90-95); PCO2 ABG 35 mmHg (35-46); PO2 ABG 132 mmHg (80-95); pH ABG 7.42 (7.35-7.45)
[2021-06-08 15:35] LABS: Allen Test POS (Pos)
[2021-06-08] MEDS: WARFARIN SOD 4 MG TAB PO SCH (17:40)
[2021-06-08] MEDS: GABAPENTIN 100 MG CAP PO SCH (17:40)
--- NOTE | 2021-06-08 17:58 | Electrocardiogram Report ---
Test Reason : Blood Pressure : / mmHG Vent. Rate : 095 BPM Atrial Rate : 095 BPM P-R Int : 120 ms QRS Dur : 178 ms QT Int : 438 ms P-R-T Axes : 000 028 153 degrees QTc Int : 550 ms Sinus rhythm Left bundle branch block Abnormal ECG When compared with ECG of 21-MAY-2021 07:30, Fusion complexes are now Present Confirmed by Wang Blanc ([id number]) on 06/08/2021 5:57:42 PM Referred By: Ros Maynard Confirmed By:Louie Blanc
[2021-06-08] MEDS ORDERED: metOLazone 2.5 MG TABLET PO ONE (20:00)
[2021-06-08] MEDS: METOPROLOL SUCC 25MG EXT REL TAB PO SCH (20:57)
[2021-06-08] MEDS: DOCUSATE SODIUM/SENNA 50/8.6MG TAB PO SCH (20:59)
--- NOTE | 2021-06-08 23:44 | Hospitalist Progress Note ---
Date of Service June 08, 2021 delayed entry date of service noted above Assessment & Plan (1) CHF exacerbation: Plan: (1) Acute on chronic HFrEF (heart failure with reduced ejection fraction): (2) Ischemic cardiomyopathy: (3) Pleural effusion: Plan: per Dr. Spaulding's notes with addendum: (1) Acute on chronic HFrEF (heart failure with reduced ejection fraction): (1) Pleural effusion: R (1878 cc)>L (642 cc),2/2 to above, s/p Rt thoracentesis 05/30 (2.2L out), Warfarin resumed 05/30, with bridging heparin. PT/INR daily, DC heparin when INR >1.9. Lt thora 05/31 w/ 1L serous fluid out. Has underlying ischemic cardiomyopathy with an EF 25% and is wearing a life vest which was given to him on hospital discharge 03/20/21. IV diuretics per nephrology with continued dyspnea on exertion. FR 1.5 L daily. Strict Is and Os. Anthony not feasible d/t recent UTI Continue Toprol XL and aspirin. RYLEE/ARB contraindicated in renal disease. Atorvastatin initially held in LFT elevation 2/2 congestive hepatopathy but this has been restarted. Defer diuretic titration to Cardiology and Nephrology teams -->being optimized, pt was hypotensive after midday dose of diuretic diuresed well with IV diuretics transitioned to PO Torsemide BID, titrated to daily crea back to baseline 2.3 06/07: Torsemide held for low BP 06/08: Torsemide resumed in the afternoon, patient went into respiratory distress, Os sats > 90% on 2 L NC CXR increased pulmonary edema given Lasix 40mg IV, Bipap reassessed in the evening, calm, comfortable on Bipap Pulmonary not recommending Pleurex catheter placement due to risk of infection Dr Lundy messaged, recommend additional Lasix 40mg IV and Metolazone 2.5mg po in the evening discussed with Dr. Fox, plan for BiV pacer/defibrillator placement as inpatient next week (2) Acute kidney injury superimposed on chronic kidney disease: Recent increased diuretic use as outpatient prior to hospitalization. Possible etiology also cardiorenal syndrome per nephro. Baseline creat 2.5. Cont IV diuretics per nephrology. crea back to baseline for 3 days no HD per Nephro diuretic management per above (3)Ischemic cardiomyopathy: presumed per cardiology -> Lexiscan nuclear stress test demonstrated myocardial scar without superimposed ischemia, no benefit to cardiac cath at this time. Will need OP EP consultation (consideration for DISHWASHER capable ICD after 3 months of evidence-based medical therapy (approx 06/26/21). 06/[address] Fox, plan for BiV pacer/defibrillator placement as inpatient next week (4) Ventricular tachycardia: maintains life vest. After foot and urine infections are cleared up, plan will be for outpatient EP consultation for consideration of DISHWASHER capable ICD. discussed with Dr. Fox, plan for BiV pacer/defibrillator placement as inpatient next week (5)Atrial fibrillation: Per cardiology, two brief episodes of afib noted 05/19 and . Continue amiodarone, Toprol-XL. Warfarin resumed 05/30; heparin drip as bridge--to stop when INR >1.9, daily pt/inr INR 2.4 coumadin 4 mg DC heparin ff up INR (6) Pain of left heel: Recent thrombectomy of his left lower extremity in Mar 2021 after an NSTEMI and bilateral thoracentesis. He is subsequently developed a pressure ulcer that was painful on the left heel. Vascular evaluated and no further interventions needed. Cont medical management of peripheral vascular disease. 06/08 patient does not report pain on the left heel (7) Aortic stenosis: (8) Elevated transaminase level: Likely secondary to congestive hepatopathy, right upper quadrant ultrasound is within normal limits. This is improved and atorvastatin was restarted. (9) Anemia in CKD (chronic kidney disease): Continues on Procrit as outpatient. 1 unit packed RBCs ordered hg improved from 6.9-8.9--> 8.5 (10) UTI (urinary tract infection): 05/20 urine culture positive for E. coli sensitive to cefepime and ceftriaxone. completed antibiotic course- Cefuroxime and Cefdinir (11) DVT prophylaxis: INR 2.4 Full code Disposition-PT/OT recommending d/c home Admission and Anticipated Discharge Date Admission Date: May 14, 2021 Subjective ff up for acute CHF exacerbation,etc seen resting in bed, sitting up not in distress, comfortable had nausea/vomiting after taking pills no chest pain, dyspnea, palpitations, dizziness in the afternoon, called by RN as patient was anxious ordered 2L NC seen resting in bed, patient uncomfortable, tachypneic placed on oxymask, nebs ordered stat CXR: increased pulmonary edema/congestion Lasix 40mg IV ordered EKG no signs of acute ischemia KRYSTINA Dixon at bedside updated patient's sons Javier at bedside, Grey over the phone in detail and at length Review of Systems Review of Systems: all noted and negative except for above Physical Exam Physical Exam: afternoon eval General- oriented x 3, tachypneic, breathing with effort or accessory muscle use Eyes- anicteric Neck- no JVD Lungs-(+) crackles BL Heart- normal rate, regular rhythm; no murmurs Abdomen- normal bowel sounds, nondistended, soft, nontender Extremities- no pretibial edema, no calf tenderness Neuro- alert, oriented x 3; no gross focal neurologic deficits Skin- warm & dry Results & Data Results & Data ([facility]) Vital Signs (Past 12 Hours) Vital Signs Temp Pulse Pulse Resp BP Pulse Ox 06/08/21 22:58 36.7 C 70 20 111/70 90 06/08/21 19:00 36.4 C L 72 20 101/58 L 100 06/08/21 16:56 94 H 06/08/21 14:53 37.1 C 80 18 138/77 99 06/08/21 14:23 92 H 26 H 100 06/08/21 14:20 92 H 26 H 100 06/08/21 13:30 90 24 99 06/08/21 13:25 90 28 H 128/72 94 06/08/21 12:00 37.0 C 84 16 129/64 97 all noted and reviewed including below
[2021-06-09] MEDS: LEVOTHYROXINE SODIUM 75 MCG TABLET PO SCH (06:02)
[2021-06-09 06:55] LABS: INR 1.9 (0.9-1.1); Prothrombin Time 18.3 Seconds (9.0-12.0)
[2021-06-09 07:00] LABS: BUN Creatinine Ratio 33.7 (10-20); Calcium 8.9 mg/dl (8.5-10.1); Creatinine Clr Calc Pharmacy 23.9 ml/min; Est GFR (African American) 29.3 ml/min; Est GFR (Non-African American) 25.3 ml/min
[2021-06-09] MEDS: POTASSIUM CHLORIDE CRTAB 20 MEQ TABCR PO SCH (08:29)
[2021-06-09] MEDS: CYANOCOBALAMIN 500 MCG TABLET (VITAMIN B-12) PO SCH (08:29)
[2021-06-09] MEDS: AMIODARONE 200 MG TAB PO SCH (08:29)
[2021-06-09] MEDS: TORSEMIDE 10 MG TAB PO SCH (08:29)
[2021-06-09] MEDS: CHOLECALCIFEROL 1,000 UNITS 25 MCG TAB PO SCH (08:29)
[2021-06-09] MEDS: PYRIDOXINE HCL 50 MG TAB PO SCH ×2 (08:30→19:55)
[2021-06-09] MEDS: ASPIRIN 81 MG ECTAB PO SCH (08:30)
[2021-06-09] MEDS: FLUTICASONE PROPIONATE NA SPR 16 GM BTL SCH (08:30)
[2021-06-09] MEDS: AZELASTINE HCL 0.1% NASAL 200 SPRAYS/27,400 MCG BTL SCH ×2 (08:30→19:56)
[2021-06-09] MEDS: ATORVASTATIN 40 MG TAB PO SCH (08:30)
--- NOTE | 2021-06-09 09:50 | Nephrology Progress Note ---
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 Baseline creatinine of 2.5. Admission creatinine of 3.8 and plateau'd mid 2's for several days. -Continue torsemide 40 daily now -k.cl 40 daily. -cont dialysis diet and 1.5L FR -Monitor input output - needs I/O best we can -Daily BMP --Follows with Dr. Keyes and will do that as outpt. Current creat is not high enough for Chronic Dialysis (2) Acute decompensated heart failure: Plan: Patient with a low EF of 25% and pulmonary hypertension. Longer term for OP EP consult mid June, after appropriate medical tx window/optimization -diuretics iv as above for inpatient.He needs lot higher oral demadex dose as outpt. Seems was doing better with torsemide 40 bid but says felt " bad" on that dose but he needs a higher dose. 40 mg is minimum and likely needs higher dose than that. Also tolerate BP as low as 90 systolic before holding torsemide. (3) Anemia due to chronic disease treated with erythropoietin: Plan: Patient received Procrit 20k units. We will continue to monitor and give Procrit weekly while here inpt but even with this has low Hgb and low response. Subjective Seen for CKD and CHF. went into sig Pulm distress yesterday evening and needed 2 doses of iv lasix and Metolazone. made lot of urine and then felt better. Review of Systems Review of Systems: All other systems were reviewed and negative except as noted in HPI Physical Exam Physical Exam: General exam: Appears comfortable, no acute distress HEENT: Pupils are equal and reactive to light Neck: No JVD, neck is supple trachea is midline Respiratory system: Reduced breath sounds in the bases bilaterally. Gastrointestinal: Abdomen is soft, non distended, non tender, bowel sounds are present CVS: Regular rate and rhythm. No murmurs, rubs or gallops Musculoskeletal: No joint or muscle tenderness Extremities: Non tender, trace edema, peripheral pulses are present Neuro: Oriented, no tremors, no focal neurological deficits Skin: No rashes Results & Data ([facility]) Vital Signs (Past 12 Hours) Vital Signs Temp Pulse Pulse Resp BP BP Pulse Ox 12/29/21 07:30 36.7 C 70 18 98/54 L 94 06/09/21 07:00 70 06/09/21 03:37 94 H 18 94 06/09/21 03:00 36.5 C 74 20 95/59 L 99 06/08/21 23:15 80 16 97 06/08/21 22:58 36.7 C 70 20 111/70 90 06/08/21 22:20 73
--- NOTE | 2021-06-09 11:50 | Cardiology Progress Note ---
Date of Service June 09, 2021 Assessment & Plan (1) Acute on chronic HFrEF (heart failure with reduced ejection fraction): Plan: Class III IV with recurrent pleural effusion (2) Ischemic cardiomyopathy: Plan: Lexiscan nuclear stress test demonstrates myocardial scar without superimposed ischemia. No benefit to cardiac cath at this time. (3) Atrial fibrillation: Plan: Paroxysmal controlled in sinus rhythm with amiodarone (4) UTI (urinary tract infection): (5) Acute kidney injury superimposed on chronic kidney disease: Plan: asked to reevaluate patient by Dr. Mendiola after son questioned if device could be placed this admission Chronic renal insufficiency remains limiting and patient may ultimately progress to dialysis Blood pressure and renal function will not allow YRLEE or ARB/Entresto. Anticipating referral for BiV pacer defibrillator Obviously given yesterday's events the need for medical optimization is of utmost importance at this time. Should the patient remain hospitalized we will place BiV ICD next week. Admission and Anticipated Discharge Date Admission Date: May 14, 2021 Subjective Patient seen and examined, out of bed in chair. Chart reviewed along with events of last p.m. patient states he is now feeling much better and breathing is back to baseline. Brisk diuresis overnight. Denies chest pain or palpitations. Review of Systems Review of Systems: All systems reviewed & are unremarkable except as noted in HPI & below Physical Exam Physical Exam: General: Awake, alert and oriented x 3. No acute distress. HEENT: Normocephalic, atraumatic. Pupils equal, round and reactive to light and accommodation. Extraocular muscles are intact. Anicteric sclera. Moist mucous membranes. Neck: No JVD. No bruit. Cardiovascular: Regular. Positive S-4. Normal S-1 and S-2. No S-3. No murmurs or rubs. Pulmonary: decreased breath sounds in b/l bases Abdomen: Bowel sounds x 4, soft. No rebound, guarding or tenderness. No organomegaly. Extremities: No clubbing, cyanosis or edema. +2 pedal pulses bilaterally. Skin: Warm and dry. Results & Data ([facility]) Vital Signs (Past 12 Hours) Vital Signs Temp Pulse Pulse Pulse Resp BP BP 06/09/21 11:43 36.5 C 68 16 92/53 L 06/09/21 07:30 36.7 C 70 18 98/54 L 06/09/21 07:00 70 06/09/21 03:37 94 H 18 06/09/21 03:00 36.5 C 74 20 95/59 L Pulse Ox 06/09/21 11:43 97 06/09/21 07:30 94 06/09/21 07:00 06/09/21 03:37 94 06/09/21 03:00 99
[2021-06-09] MEDS: GABAPENTIN 100 MG CAP PO SCH (16:48)
[2021-06-09] MEDS: WARFARIN SOD 4 MG TAB PO SCH (16:48)
[2021-06-09] MEDS: DOCUSATE SODIUM/SENNA 50/8.6MG TAB PO SCH (19:56)
[2021-06-09] MEDS: METOPROLOL SUCC 25MG EXT REL TAB PO SCH (19:56)
[2021-06-09] MEDS: MELATONIN 3 MG TAB PO PRN (19:58)
--- NOTE | 2021-06-09 22:33 | Hospitalist Progress Note ---
Date of Service June 09, 2021 Assessment & Plan (1) CHF exacerbation: Plan: (1) Acute on chronic HFrEF (heart failure with reduced ejection fraction): (2) Ischemic cardiomyopathy: (3) Pleural effusion: Plan: (1) Acute on chronic HFrEF (heart failure with reduced ejection fraction): (1) Pleural effusion: R (1878 cc)>L (642 cc),2/2 to above, s/p Rt thoracentesis 05/30 (2.2L out), Warfarin resumed 05/30, with bridging heparin. PT/INR daily, DC heparin when INR >1.9. Lt thora 05/31 w/ 1L serous fluid out. Has underlying ischemic cardiomyopathy with an EF 25% and is wearing a life vest which was given to him on hospital discharge 03/20/21. IV diuretics per nephrology with continued dyspnea on exertion. FR 1.5 L daily. Strict Is and Os. Anthony not feasible d/t recent UTI Continue Toprol XL and aspirin. RYLEE/ARB contraindicated in renal disease. Atorvastatin initially held in LFT elevation 2/2 congestive hepatopathy but this has been restarted. Defer diuretic titration to Cardiology and Nephrology teams -->being optimized, pt was hypotensive after midday dose of diuretic Continue Torsemide 40mg daily Continue fluid restriction to 1.5L daily Pulmonary not recommending Pleurex catheter placement due to risk of infection plan for BiV pacer/defibrillator placement possible next week (2) Acute kidney injury superimposed on chronic kidney disease: Recent increased diuretic use as outpatient prior to hospitalization. Possible etiology also cardiorenal syndrome per nephro. Baseline creat 2.5. Cont IV diuretics per nephrology. Creatinine stable at 2.34 no HD per Nephro diuretic management per above (3)Ischemic cardiomyopathy: presumed per cardiology -> Lexiscan nuclear stress test demonstrated myocardial scar without superimposed ischemia, no benefit to cardiac cath at this time. Will need OP EP consultation (consideration for MOTOR VEHICLE DISPATCHER capable ICD after 3 months of evidence-based medical therapy (approx 06/26/21). plan for BiV pacer/defibrillator placement as inpatient next week (4) Ventricular tachycardia: maintains life vest. After foot and urine infections are cleared up, plan will be for outpatient EP consultation for consideration of MOTOR VEHICLE DISPATCHER capable ICD. discussed with Dr. Fox, plan for BiV pacer/defibrillator placement as inpatient next week (5)Atrial fibrillation: Per cardiology, two brief episodes of afib noted 05/19 and . Continue amiodarone, Toprol-XL. Warfarin resumed 05/30; heparin drip as bridge--to stop when INR >1.9, daily pt/inr Continue coumadin INR 1.9 today (6) Pain of left heel: Recent thrombectomy of his left lower extremity in Mar 2021 after an NSTEMI and bilateral thoracentesis. He is subsequently developed a pressure ulcer that was painful on the left heel. Vascular evaluated and no further interventions needed. Cont medical management of peripheral vascular disease. 06/08 patient does not report pain on the left heel (7) Aortic stenosis: (8) Elevated transaminase level: Likely secondary to congestive hepatopathy, right upper quadrant ultrasound is within normal limits. This is improved and atorvastatin was restarted. (9) Anemia in CKD (chronic kidney disease): Continues on Procrit as outpatient. 1 unit packed RBCs ordered hg improved from 6.9-8.9--> 8.5 (10) UTI (urinary tract infection): 05/20 urine culture positive for E. coli sensitive to cefepime and ceftriaxone. completed antibiotic course- Cefuroxime and Cefdinir (11) DVT prophylaxis: INR 1.9 Full code Disposition-PT/OT recommending d/c home Admission and Anticipated Discharge Date Admission Date: May 14, 2021 Subjective Patient was seen and examined for follow-up of shortness of breath due to CHF Lying in bed with no acute distress Patient continues to have shortness of breath with minimal exertion He would like to get the ICD placement during this admission Review of Systems Review of Systems: All systems reviewed & are unremarkable except as noted in Subjective Physical Exam Physical Exam: General- No acute distress Head- atraumatic Eyes- PERRL, EOMI, ENT- oropharynx clear Neck- supple, no JVD Lungs- coarse BS Heart- regular rhythm; no murmur Abdomen- normal bowel sounds, soft, nontender Extremities- no calf tenderness Neuro- alert, oriented x 3; PERRL, EOMI; no facial palsy; no dysarthria Skin- warm & dry Results & Data Results & Data ([facility]) Vital Signs (Past 12 Hours) Vital Signs Temp Pulse Pulse Pulse Resp BP BP 06/09/21 19:39 36.8 C 78 20 92/52 L 06/09/21 16:48 36.5 C 62 16 99/59 L 06/09/21 15:09 74 06/09/21 12:40 06/09/21 11:43 36.5 C 68 16 92/53 L Pulse Ox 06/09/21 19:39 96 06/09/21 16:48 98 06/09/21 15:09 06/09/21 12:40 97 06/09/21 11:43 97
[2021-06-10] MEDS: ACETAMINOPHEN 325 MG TAB PO PRN (01:12)
[2021-06-10] MEDS: LEVOTHYROXINE SODIUM 75 MCG TABLET PO SCH (05:20)
[2021-06-10 06:28] LABS: Hematocrit (blood only) 25.4 % (42-52); Hemoglobin 8.1 g/dL (14.0-18.0); Mean Corpuscular Hemoglobin 36.8 pg (25-34); Mean Corpuscular Hgb Conc 31.9 g/dL (32-36); Mean Corpuscular Volume 115.5 fL (80-100); Mean Platelet Volume 9.6 fL (7.4-10.4); Platelet Count 305 K/uL (130-400); RDW Coefficient of Variation 23.8 % (11.5-14.5); RDW Standard Deviation 97.9 fL (36.4-46.3); White Blood Count 6.92 K/uL (4.8-10.8)
[2021-06-10 06:39] LABS: INR 1.8 (0.9-1.1); Prothrombin Time 17.4 Seconds (9.0-12.0)
[2021-06-10 07:13] LABS: BUN Creatinine Ratio 33.4 (10-20); Calcium 8.7 mg/dl (8.5-10.1); Creatinine Clr Calc Pharmacy 22.7 ml/min; Est GFR (African American) 27.5 ml/min; Est GFR (Non-African American) 23.7 ml/min; Potassium 3.3 mmol/L (3.5-5.1)
[2021-06-10] MEDS ORDERED: POTASSIUM CHLORIDE CRTAB 20 MEQ TABCR PO STA (07:25)
[2021-06-10 07:35] LABS: Basophils # (auto) 0.03 K/uL (0-0.2); Basophils % (auto) 0.4 %; Eosinophils # (auto) 0.16 K/uL (0-0.5); Eosinophils % (auto) 2.3 %; Immature Granulocytes # (auto) 0.02 K/uL (0.00-0.02); Immature Granulocytes % (auto) 0.3 %; Lymphocytes # (auto) 4.36 K/uL (1.2-3.4); Macrocytosis Present; Monocytes # (auto) 0.54 K/uL (0.11-0.59); Monocytes % (auto) 7.8 %; Neutrophils # (auto) 1.81 K/uL (1.4-6.5); Neutrophils % (auto) 26.2 %; Ovalocytes 1+; Polychromasia 1+; Tear Drop Cells 1+
[2021-06-10] MEDS: PYRIDOXINE HCL 50 MG TAB PO SCH ×2 (07:58→20:45)
[2021-06-10] MEDS: AMIODARONE 200 MG TAB PO SCH (07:59)
[2021-06-10] MEDS: CYANOCOBALAMIN 500 MCG TABLET (VITAMIN B-12) PO SCH (07:59)
[2021-06-10] MEDS: TORSEMIDE 10 MG TAB PO SCH (07:59)
[2021-06-10] MEDS: ATORVASTATIN 40 MG TAB PO SCH (08:00)
[2021-06-10] MEDS: FLUTICASONE PROPIONATE NA SPR 16 GM BTL SCH (08:00)
[2021-06-10] MEDS: AZELASTINE HCL 0.1% NASAL 200 SPRAYS/27,400 MCG BTL SCH ×2 (08:00→20:45)
[2021-06-10] MEDS: POTASSIUM CHLORIDE CRTAB 20 MEQ TABCR PO SCH (08:00)
[2021-06-10] MEDS: CHOLECALCIFEROL 1,000 UNITS 25 MCG TAB PO SCH (08:00)
[2021-06-10] MEDS: ASPIRIN 81 MG ECTAB PO SCH (08:00)
--- NOTE | 2021-06-10 16:21 | Cardiology Progress Note ---
Date of Service June 10, 2021 Assessment & Plan (1) Acute on chronic HFrEF (heart failure with reduced ejection fraction): Plan: Class III IV with recurrent pleural effusion (2) Ischemic cardiomyopathy: Plan: Lexiscan nuclear stress test demonstrates myocardial scar without superimposed ischemia. No benefit to cardiac cath at this time. (3) Atrial fibrillation: Plan: Paroxysmal controlled in sinus rhythm with amiodarone (4) UTI (urinary tract infection): (5) Acute kidney injury superimposed on chronic kidney disease: Plan: asked to reevaluate patient by Dr. Mendiola after son questioned if device could be placed this admission Chronic renal insufficiency remains limiting and patient may ultimately progress to dialysis Blood pressure and renal function will not allow RYLEE or ARB/Entresto. Anticipating referral for BiV pacer defibrillator Obviously given recent events the need for medical optimization is of utmost importance at this time. Has now diuresed over 2 L in the last 24 hours Should the patient remain hospitalized we will place BiV ICD next week. Admission and Anticipated Discharge Date Admission Date: May 14, 2021 Subjective Patient seen and examined, chart reviewed. No complaints overnight. Still short of breath with minimal exertion Review of Systems Review of Systems: All systems reviewed & are unremarkable except as noted in HPI & below Physical Exam Physical Exam: General: Awake, alert and oriented x 3. No acute distress. HEENT: Normocephalic, atraumatic. Pupils equal, round and reactive to light and accommodation. Extraocular muscles are intact. Anicteric sclera. Moist mucous membranes. Neck: No JVD. No bruit. Cardiovascular: Regular. Positive S-4. Normal S-1 and S-2. No S-3. No murmurs or rubs. Pulmonary: decreased breath sounds in b/l bases Abdomen: Bowel sounds x 4, soft. No rebound, guarding or tenderness. No organomegaly. Extremities: No clubbing, cyanosis or edema. +2 pedal pulses bilaterally. Skin: Warm and dry. Results & Data ([facility]) Vital Signs (Past 12 Hours) Vital Signs Temp Pulse Resp BP BP Pulse Ox 06/10/21 15:18 36.4 C L 72 16 97/61 L 96 06/10/21 11:08 36.5 C 70 18 93/58 L 98 06/10/21 07:52 81 114/66 93
[2021-06-10] MEDS: GABAPENTIN 100 MG CAP PO SCH (16:41)
[2021-06-10] MEDS: WARFARIN SOD 4 MG TAB PO SCH (16:41)
[2021-06-10] MEDS: METOPROLOL SUCC 25MG EXT REL TAB PO SCH (20:45)
[2021-06-10] MEDS: DOCUSATE SODIUM/SENNA 50/8.6MG TAB PO SCH (20:45)
--- NOTE | 2021-06-10 23:48 | Hospitalist Progress Note ---
Date of Service June 10, 2021 Assessment & Plan (1) CHF exacerbation: Plan: (1) Acute on chronic HFrEF (heart failure with reduced ejection fraction): (2) Ischemic cardiomyopathy: (3) Pleural effusion: Plan: (1) Acute on chronic HFrEF (heart failure with reduced ejection fraction): (1) Pleural effusion: R (1878 cc)>L (642 cc),2/2 to above, s/p Rt thoracentesis 05/30 (2.2L out), Warfarin resumed 05/30, with bridging heparin. PT/INR daily, DC heparin when INR >1.9. Lt thora 05/31 w/ 1L serous fluid out. Has underlying ischemic cardiomyopathy with an EF 25% and is wearing a life vest which was given to him on hospital discharge 03/20/21. IV diuretics per nephrology with continued dyspnea on exertion. FR 1.5 L daily. Strict Is and Os. Anthony not feasible d/t recent UTI Continue Toprol XL and aspirin. RYLEE/ARB contraindicated in renal disease. Atorvastatin initially held in LFT elevation 2/2 congestive hepatopathy but this has been restarted. Defer diuretic titration to Cardiology and Nephrology teams -->being optimized, pt was hypotensive after midday dose of diuretic Continue Torsemide 40mg daily Continue fluid restriction to 1.5L daily Pulmonary not recommending Pleurex catheter placement due to risk of infection plan for BiV pacer/defibrillator placement possible next week (2) Acute kidney injury superimposed on chronic kidney disease: Recent increased diuretic use as outpatient prior to hospitalization. Possible etiology also cardiorenal syndrome per nephro. Baseline creat 2.5. Cont IV diuretics per nephrology. Creatinine stable at 2.34 no HD per Nephro diuretic management per above (3)Ischemic cardiomyopathy: presumed per cardiology -> Lexiscan nuclear stress test demonstrated myocardial scar without superimposed ischemia, no benefit to cardiac cath at this time. Will need OP EP consultation (consideration for OIL DRILLER capable ICD after 3 months of evidence-based medical therapy (approx 06/26/21). plan for BiV pacer/defibrillator placement as inpatient next week (4) Ventricular tachycardia: maintains life vest. After foot and urine infections are cleared up, plan will be for outpatient EP consultation for consideration of OIL DRILLER capable ICD. discussed with Dr. Fox, plan for BiV pacer/defibrillator placement as inpatient next week (5)Atrial fibrillation: Per cardiology, two brief episodes of afib noted 05/19 and . Continue amiodarone, Toprol-XL. Warfarin resumed 05/30; heparin drip as bridge--to stop when INR >1.9, daily pt/inr Continue coumadin INR 1.9 today (6) Pain of left heel: Recent thrombectomy of his left lower extremity in Mar 2021 after an NSTEMI and bilateral thoracentesis. He is subsequently developed a pressure ulcer that was painful on the left heel. Vascular evaluated and no further interventions needed. Cont medical management of peripheral vascular disease. 06/08 patient does not report pain on the left heel (7) Aortic stenosis: (8) Elevated transaminase level: Likely secondary to congestive hepatopathy, right upper quadrant ultrasound is within normal limits. This is improved and atorvastatin was restarted. (9) Anemia in CKD (chronic kidney disease): Continues on Procrit as outpatient. 1 unit packed RBCs ordered hg improved from 6.9-8.9--> 8.5 (10) UTI (urinary tract infection): 05/20 urine culture positive for E. coli sensitive to cefepime and ceftriaxone. completed antibiotic course- Cefuroxime and Cefdinir (11) DVT prophylaxis: INR 1.9 Full code Disposition-PT/OT recommending d/c home Admission and Anticipated Discharge Date Admission Date: May 14, 2021 Subjective Patient was seen and examined for follow-up of shortness of breath due to CHF Sitting in chair with no acute distress Patient continues to have shortness of breath with minimal exertion Denies any chest pain, palpitation and Dizziness Review of Systems Review of Systems: All systems reviewed & are unremarkable except as noted in Subjective Physical Exam Physical Exam: General- No acute distress Head- atraumatic Eyes- PERRL, EOMI, ENT- oropharynx clear Neck- supple, no JVD Lungs- coarse BS Heart- regular rhythm; no murmur Abdomen- normal bowel sounds, soft, nontender Extremities- no calf tenderness Neuro- alert, oriented x 3; PERRL, EOMI; no facial palsy; no dysarthria Skin- warm & dry Results & Data Results & Data ([facility]) Vital Signs (Past 12 Hours) Vital Signs Temp Pulse Resp BP BP Pulse Ox 06/10/21 19:34 36.4 C L 74 18 102/64 98 06/10/21 15:18 36.4 C L 72 16 97/61 L 96
[2021-06-11] MEDS: LEVOTHYROXINE SODIUM 75 MCG TABLET PO SCH (06:08)
[2021-06-11 06:22] LABS: Hematocrit (blood only) 25.8 % (42-52); Hemoglobin 8.3 g/dL (14.0-18.0); Mean Corpuscular Hemoglobin 36.6 pg (25-34); Mean Corpuscular Hgb Conc 32.2 g/dL (32-36); Mean Corpuscular Volume 113.7 fL (80-100); Mean Platelet Volume 9.4 fL (7.4-10.4); Platelet Count 278 K/uL (130-400); RDW Coefficient of Variation 23.2 % (11.5-14.5); RDW Standard Deviation 94.3 fL (36.4-46.3); Red Blood Count 2.27 M/uL (4.7-6.1); White Blood Count 5.31 K/uL (4.8-10.8)
[2021-06-11 06:30] LABS: INR 1.5 (0.9-1.1); Prothrombin Time 14.6 Seconds (9.0-12.0)
[2021-06-11 06:50] LABS: Basophils # (auto) 0.02 K/uL (0-0.2); Basophils % (auto) 0.4 %; Eosinophils # (auto) 0.12 K/uL (0-0.5); Eosinophils % (auto) 2.3 %; Immature Granulocytes # (auto) 0.01 K/uL (0.00-0.02); Immature Granulocytes % (auto) 0.2 %; Lymphocytes # (auto) 3.26 K/uL (1.2-3.4); Lymphocytes % (auto) 61.4 %; Monocytes # (auto) 0.45 K/uL (0.11-0.59); Monocytes % (auto) 8.5 %; Neutrophils # (auto) 1.45 K/uL (1.4-6.5); Neutrophils % (auto) 27.2 %; Ovalocytes 1+
[2021-06-11 06:51] LABS: Macrocytosis Present
[2021-06-11 06:57] LABS: BUN Creatinine Ratio 35.7 (10-20); Calcium 8.5 mg/dl (8.5-10.1); Creatinine Clr Calc Pharmacy 24.3 ml/min; Est GFR (African American) 29.8 ml/min; Est GFR (Non-African American) 25.7 ml/min; Potassium 2.8 mmol/L (3.5-5.1)
[2021-06-11] MEDS: PYRIDOXINE HCL 50 MG TAB PO SCH ×2 (08:27→21:03)
[2021-06-11] MEDS: TORSEMIDE 10 MG TAB PO SCH (08:27)
[2021-06-11] MEDS: POTASSIUM CHLORIDE CRTAB 20 MEQ TABCR PO SCH (08:27)
[2021-06-11] MEDS: CHOLECALCIFEROL 1,000 UNITS 25 MCG TAB PO SCH (08:27)
[2021-06-11] MEDS: ATORVASTATIN 40 MG TAB PO SCH (08:27)
[2021-06-11] MEDS: CYANOCOBALAMIN 500 MCG TABLET (VITAMIN B-12) PO SCH (08:27)
[2021-06-11] MEDS: AMIODARONE 200 MG TAB PO SCH (08:27)
[2021-06-11] MEDS: AZELASTINE HCL 0.1% NASAL 200 SPRAYS/27,400 MCG BTL SCH ×2 (08:27→21:04)
[2021-06-11] MEDS: ASPIRIN 81 MG ECTAB PO SCH (08:27)
[2021-06-11] MEDS: FLUTICASONE PROPIONATE NA SPR 16 GM BTL SCH (08:28)
--- NOTE | 2021-06-11 10:36 | Nephrology Progress Note ---
Date of Service June 11, 2021 Assessment & Plan (1) Acute kidney injury superimposed on chronic kidney disease: Plan: recurrent acute kidney injury on CKD4 due to cardiorenal syndrome. Baseline creatinine of 2.5. Admission creatinine of 3.8 and plateau'd at about 2.6 for several days; creatinine down to 2.3. Potassium low at 2.8 - cONTINUE WITH torsemide 40 daily. - replace potassium as needed. -cont dialysis diet and 1.5L FR -Monitor input output - needs I/O best we can -Daily BMP -Patient likely needs to start planning for dialysis for volume control. Follows with me. (2) Acute decompensated heart failure: Plan: Patient with a low EF of 25% and pulmonary hypertension. Longer term for OP EP consult mid June, after appropriate medical tx window/optimization -diuretics as above Continue fluid limit 1.5 L daily (in general he takes in less than 1 L); continue less than 2 g daily sodium diet (3) Anemia due to chronic disease treated with erythropoietin: Plan: Patient received Procrit 20k units. We will continue to monitor and give Procrit as needed Admission and Anticipated Discharge Date Admission Date: May 14, 2021 Subjective Patient seen and examined,No complaints overnight. Stting out on chair,Comfortable at rest. Review of Systems Review of Systems: Comfortable at rest No pedal edema. Passing urine. Physical Exam Physical Exam: General exam: Appears comfortable, no acute distress HEENT: Pupils are equal and reactive to light Neck: No JVD, neck is supple trachea is midline Respiratory system: Reduced breath sounds in the bases bilaterally. Gastrointestinal: Abdomen is soft, non distended, non tender, bowel sounds are present CVS: Regular rate and rhythm. No murmurs, rubs or gallops Musculoskeletal: No joint or muscle tenderness Extremities: Non tender, trace edema, peripheral pulses are present Neuro: Oriented, no tremors, no focal neurological deficits Skin: No rashes Results & Data ([facility]) Vital Signs (Past 12 Hours) Vital Signs Temp Pulse Resp BP Pulse Ox 06/11/21 07:00 36.4 C L 61 18 94/51 L 92 06/11/21 03:43 36.4 C L 62 18 94/52 L 90 06/10/21 23:54 36.7 C 71 18 100/60 95 Laboratory Results 06/11/21 06:01 06/11/21 06:01
--- NOTE | 2021-06-11 11:50 | Cardiology Progress Note ---
Date of Service June 11, 2021 Assessment & Plan (1) CHF exacerbation: Plan: Prolonged hospital stay 1. Acute on chronic heart failure with reduced ejection fraction, presumed ischemic cardiomyopathy, nuclear perfusion study performed this admission revealing large LAD territory scar, LVEF 25% 2. Cardiorenal syndrome 3. Longstanding left bundle branch block, with progression noted this admission, QRS duration 160-170 ms, echocardiographic evidence of LV dyssynchrony 4. Baseline moderate aortic stenosis, noted at time of echocardiogram November,, at which time LVEF was normal. 5. Myelodysplastic syndrome 6. paroxysmal atrial fibrillation - Patient is status post bilateral thoracentesis during admission March,. Repeat right thoracentesis 05/30/2021, left thoracentesis performed 05/31/2021. Continue torsemide, amiodarone, metoprolol, atorvastatin, ASA. As of 06/10/21, he is now 3 months post initial diagnosis of severe LV systolic dysfunction. Based on perfusion imaging performed earlier this month, no ischemia noted. Remains in congestive heart failure despite hospital level medication therapy. Medication treatment limited by relative hypotension, and renal insufficiency. Has history of embolization to the left lower extremity as well as underlying severe left-sided peripheral arterial disease. Left heel pressure ulcer noted earlier this hospital stay, healing well with local wound care. Considerations with regards to future need of dialysis for management of volume noted in nephrology note. Patient to remain in hospital for consideration of biventricular pacemaker AICD. With thoughts that he may have a significant clinical improvement with initiation of cardiac resynchronization therapy. Admission and Anticipated Discharge Date Admission Date: May 14, 2021 Subjective Patient seen in cardiology follow up of ongoing acute on chronic systolic heart failure, presumed ischemic cardiomyopathy, left bundle branch block, paroxysmal atrial fibrillation. Today is hospital day #28. Pt is in good spirits. Was in and out of atrial fibrillation on 06/10/21 , but converted back to SR at 1715 and remains in SR inf the 50s to 60s this am. Denies acute complaint. No left heal pain at present. Review of Systems Review of Systems: All systems reviewed & are unremarkable except as noted in HPI & below Physical Exam Physical Exam: Temp Pulse Resp BP Pulse Ox 36.4 C L 61 18 94/51 L 92 06/11/21 07:00 06/11/21 07:00 06/11/21 07:00 06/11/21 07:00 06/11/21 07:00 Constitutional: + ill appearing (no acute distress ) Respiratory: mildly reduced breath sounds at the bases. Cardiovascular: Regular rhythm. 06/17. Gastrointestinal (Abdomen): normal bowel sounds, soft, nontender, no hepatosplenomegaly Musculoskeletal: left heel pressure ulcer, better than when last examined by undersigned on 05/21/21 Neurologic: PERRL, EOMI, accommodation nl, no face palsy, no dysarthria Results & Data ([facility]) Vital Signs (Past 12 Hours) Vital Signs Temp Pulse Resp BP Pulse Ox 06/11/21 07:00 36.4 C L 61 18 94/51 L 92 06/11/21 03:43 36.4 C L 62 18 94/52 L 90 06/10/21 23:54 36.7 C 71 18 100/60 95
[2021-06-11] MEDS: WARFARIN SOD 4 MG TAB PO SCH (16:02)
[2021-06-11] MEDS: GABAPENTIN 100 MG CAP PO SCH (16:02)
[2021-06-11] MEDS ORDERED: Heparin IV Adult Wt-Based Standard *NO* Bolus Protocol IV SCH (18:20)
[2021-06-11] MEDS ORDERED: POTASSIUM CHLORIDE CRTAB 20 MEQ TABCR PO STA (18:25)
[2021-06-11 19:14] LABS: Partial Thromboplastin Ratio 1.2; Partial Thromboplastin Time 31.5 Seconds (21.0-31.0)
[2021-06-11] MEDS: DOCUSATE SODIUM/SENNA 50/8.6MG TAB PO SCH (21:03)
[2021-06-11] MEDS: METOPROLOL SUCC 25MG EXT REL TAB PO SCH (21:04)
[2021-06-11] MEDS: HEPARIN SODIUM/DEXTROSE 25,000 UNITS/500 ML BAG IV SCH (21:17)
[2021-06-11] MEDS: LORazepam 0.5 MG TAB PO PRN (23:53)
--- NOTE | 2021-06-12 02:02 | Hospitalist Progress Note ---
Date of Service June 11, 2021. Assessment & Plan (1) CHF exacerbation: Plan: (1) Acute on chronic HFrEF (heart failure with reduced ejection fraction): (2) Ischemic cardiomyopathy: (3) Pleural effusion: (1) Acute on chronic HFrEF (heart failure with reduced ejection fraction): (1) Pleural effusion: R (1878 cc)>L (642 cc),2/2 to above, s/p Rt thoracentesis 05/30 (2.2L out), #lt thora 05/31 w/ 1L serous fluid out. Has underlying ischemic cardiomyopathy with an EF 25% and is wearing a life vest which was given to him on hospital discharge 03/20/21. IV diuretics per nephrology with continued dyspnea on exertion. FR 1.5 L daily. Strict Is and Os. Anthony not feasible d/t recent UTI Continue Toprol XL and aspirin. RYLEE/ARB contraindicated in renal disease. Atorvastatin initially held in LFT elevation 2/2 congestive hepatopathy but this has been restarted. Defer diuretic titration to Cardiology and Nephrology teams -->being optimized, pt was hypotensive after midday dose of diuretic Continue Torsemide 40mg daily Continue fluid restriction to 1.5L daily Pulmonary not recommending Pleurex catheter placement due to risk of infection plan for BiV pacer/defibrillator placement possible next week (2) Acute kidney injury superimposed on chronic kidney disease: Recent increased diuretic use as outpatient prior to hospitalization. Possible etiology also cardiorenal syndrome per nephro. Creatinine stable at 2.31, baseline creat 2.5. No HD per Nephro Continue torsemide 40 mg daily as per nephrology (3)Ischemic cardiomyopathy: presumed per cardiology -> Lexiscan nuclear stress test demonstrated myocardial scar without superimposed ischemia, no benefit to cardiac cath at this time. Will need OP EP consultation (consideration for HEAD STOCK TRANSFER CLERK capable ICD after 3 months of evidence-based medical therapy (approx 06/26/21). plan for BiV pacer/defibrillator placement as inpatient next week (4) Ventricular tachycardia: maintains life vest. After foot and urine infections are cleared up, plan will be for outpatient EP consultation for consideration of HEAD STOCK TRANSFER CLERK capable ICD. discussed with Dr. Fox, plan for BiV pacer/defibrillator placement as inpatient next week (5)Atrial fibrillation: Per cardiology, two brief episodes of afib noted 05/19 and . Continue amiodarone, Toprol-XL. Warfarin resumed 05/30; heparin drip as bridge--to stop when INR >1.9, daily pt/inr INR 1.5 today Spoke to cardiology and will start on started since patient claims for BiV pacer/defibrillator placement possible Monday or Monday We will put warfarin on hold-anticipate procedure Son's Grey was informed and agreed with the plan (6) Pain of left heel: Recent thrombectomy of his left lower extremity in Mar 2021 after an NSTEMI and bilateral thoracentesis. He is subsequently developed a pressure ulcer that was painful on the left heel. Vascular evaluated and no further interventions needed. Cont medical management of peripheral vascular disease. Stable (7) Aortic stenosis: (8) Elevated transaminase level: Likely secondary to congestive hepatopathy, right upper quadrant ultrasound is within normal limits. This is improved and atorvastatin was restarted. (9) Anemia in CKD (chronic kidney disease): Continues on Procrit as outpatient. Received 1 unit PRBC during the hospital course Hemoglobin today 8.3 Continue monitor H&H (10) UTI (urinary tract infection): 05/20 urine culture positive for E. coli sensitive to cefepime and ceftriaxone. completed antibiotic course- Cefuroxime and Cefdinir (11) DVT prophylaxis: INR 1.5-Coumadin on hold Starting on heparin drip Full code Disposition-PT/OT recommending d/c home Admission and Anticipated Discharge Date Admission Date: May 14, 2021 Subjective Patient was seen and examined his son Grey over the phone and provide with update and answer all his questions follow-up of shortness of breath due to CHF Sitting in chair with no acute distress patient said that he had a Patient said he had good night and was able to sleep well I spoke to his son Grey one the phone and provided with updates and answered all his questions Denies any chest pain, palpitation, shortness of breathand Dizziness Review of Systems Review of Systems: All systems reviewed & are unremarkable except as noted in Subjective Physical Exam Physical Exam: General- No acute distress Head- atraumatic Eyes- PERRL, EOMI, ENT- oropharynx clear Neck- supple, no JVD Lungs- +diminished BS Heart- regular rhythm; no murmur Abdomen- normal bowel sounds, soft, nontender Extremities- no calf tenderness Neuro- alert, oriented x 3; PERRL, EOMI; no facial palsy; no dysarthria Skin- warm & dry Results & Data Results & Data ([facility]) Vital Signs (Past 12 Hours) Vital Signs Temp Pulse Pulse Resp BP BP Pulse Ox 06/11/21 23:59 73 06/11/21 23:06 36.8 C 82 18 98/72 L 96 06/11/21 19:29 36.5 C 71 19 96/82 L 93 06/11/21 15:35 177/80 H 06/11/21 15:00 36.2 C L 74 16 93/54 L 97
[2021-06-12 04:22] LABS: Partial Thromboplastin Ratio 3.9
[2021-06-12 05:01] LABS: Partial Thromboplastin Time 103.6 Seconds (21.0-31.0)
[2021-06-12] MEDS: LEVOTHYROXINE SODIUM 75 MCG TABLET PO SCH (06:01)
[2021-06-12] MEDS: POTASSIUM CHLORIDE CRTAB 20 MEQ TABCR PO SCH (07:31)
[2021-06-12] MEDS: AMIODARONE 200 MG TAB PO SCH (07:31)
[2021-06-12] MEDS: TORSEMIDE 10 MG TAB PO SCH (07:32)
[2021-06-12] MEDS: ASPIRIN 81 MG ECTAB PO SCH (07:32)
[2021-06-12] MEDS: CHOLECALCIFEROL 1,000 UNITS 25 MCG TAB PO SCH (07:32)
[2021-06-12] MEDS: CYANOCOBALAMIN 500 MCG TABLET (VITAMIN B-12) PO SCH (07:33)
[2021-06-12] MEDS: PYRIDOXINE HCL 50 MG TAB PO SCH ×2 (07:33→20:29)
[2021-06-12] MEDS: ATORVASTATIN 40 MG TAB PO SCH (07:33)
[2021-06-12] MEDS: FLUTICASONE PROPIONATE NA SPR 16 GM BTL SCH (07:34)
[2021-06-12] MEDS: AZELASTINE HCL 0.1% NASAL 200 SPRAYS/27,400 MCG BTL SCH ×2 (07:34→20:29)
[2021-06-12 07:40] LABS: Hematocrit (blood only) 25.8 % (42-52); Hemoglobin 8.5 g/dL (14.0-18.0); Mean Corpuscular Hemoglobin 37.1 pg (25-34); Mean Corpuscular Hgb Conc 32.9 g/dL (32-36); Mean Corpuscular Volume 112.7 fL (80-100); Mean Platelet Volume 9.5 fL (7.4-10.4); Platelet Count 294 K/uL (130-400); RDW Coefficient of Variation 22.9 % (11.5-14.5); RDW Standard Deviation 92.1 fL (36.4-46.3); Red Blood Count 2.29 M/uL (4.7-6.1); White Blood Count 5.74 K/uL (4.8-10.8)
[2021-06-12 07:52] LABS: INR 1.5 (0.9-1.1); Prothrombin Time 14.7 Seconds (9.0-12.0)
[2021-06-12 08:04] LABS: Anisocytosis Present; Basophils # (auto) 0.03 K/uL (0-0.2); Basophils % (auto) 0.5 %; Eosinophils # (auto) 0.14 K/uL (0-0.5); Eosinophils % (auto) 2.4 %; Immature Granulocytes # (auto) 0.01 K/uL (0.00-0.02); Immature Granulocytes % (auto) 0.2 %; Lymphocytes % (auto) 64.5 %; Macrocytosis Present; Monocytes # (auto) 0.45 K/uL (0.11-0.59); Monocytes % (auto) 7.8 %; Neutrophils # (auto) 1.41 K/uL (1.4-6.5); Neutrophils % (auto) 24.6 %; Ovalocytes 1+; Polychromasia 1+
[2021-06-12 08:22] LABS: Calcium 8.2 mg/dl (8.5-10.1); Creatinine Clr Calc Pharmacy 23.4 ml/min; Est GFR (African American) 28.6 ml/min; Est GFR (Non-African American) 24.7 ml/min
[2021-06-12] MEDS ORDERED: POTASSIUM CHLORIDE CRTAB 20 MEQ TABCR PO STA (08:55)
[2021-06-12] MEDS: POTASSIUM CHLORIDE / WTR 10 MEQ/100 ML PLCT IV SCH ×2 (09:37→10:35)
--- NOTE | 2021-06-12 09:41 | Cardiology Progress Note ---
Date of Service June 12, 2021 Assessment & Plan (1) CLL (chronic lymphocytic leukemia): (2) CHF exacerbation: (3) CKD (chronic kidney disease): (4) Cardiomyopathy: (5) LBBB (left bundle branch block): Plan: The patient is currently clinically stable and waiting for a BiV/ICD device. Admission and Anticipated Discharge Date Admission Date: May 14, 2021 Subjective No current complaints. Review of Systems Review of Systems: Review of Systems: See HPI for pertinent positives. All other 10 point review of systems are negative. Physical Exam Physical Exam: General: no acute distress and stated age Head: normocephalic, no masses, lesions, tenderness or abnormalities Eyes: conjunctiva are pink and non-injected, sclera clear Neck: supple, no adenopathy, no bruits, normal jugular venous pulse, no hepatojugular reflux Chest: normal shape and normal respiratory effort Lungs: clear to auscultation and percussion Cardiac Exam: - regular rate & rhythm, no murmurs gallops or rubs - normal S1, normal S2 Pulses: 2(+) throughout Abdomen: abdomen soft, non-tender, no abnormal masses and no hepatosplenomegaly Musculoskeletal: no gait disturbance, no joint inflammation, no deforming arthritis Extremities: no edema and no cyanosis Neuro: grossly normal exam Results & Data ([facility]) Vital Signs (Past 12 Hours) Vital Signs Temp Pulse Pulse Resp BP BP Pulse Ox 06/12/21 07:17 36.5 C 65 16 91/50 L 94 06/12/21 03:34 36.5 C 89 18 88/64 L 94 06/11/21 23:59 73 06/11/21 23:06 36.8 C 82 18 98/72 L 96 Laboratory Results Laboratory Results - last 24 hr 06/11/21 06/12/21 06/12/21 18:52 03:20 07:11 WBC RBC Hgb Hct MCV MCH MCHC RDW Std Deviation RDW Coeff of Geovanni Plt Count MPV Immature Gran % (Auto) Neut % (Auto) Lymph % (Auto) [place] % (Auto) Eos % (Auto) Baso % (Auto) Neut # (Auto) Lymph # (Auto) [place] # (Auto) Eos # (Auto) Baso # (Auto) Immature Gran # (Auto) Polychromasia Anisocytosis Macrocytosis Ovalocytes PT INR APTT 31.5 H 103.6 H* PTT Ratio 1.2 3.9 Sodium 139 Potassium 3.0 L Chloride 102 Carbon Dioxide 29 Anion Gap 9.0 BUN 88 H Creatinine 2.39 H Est Cr Clr Drug Dosing 23.4 Est GFR ( Amer) 28.6 Est GFR (Non-Af Amer) 24.7 BUN/Creatinine Ratio 37.0 H Glucose 98 Calcium 8.2 L 06/12/21 06/12/21 07:11 07:11 WBC 5.74 RBC 2.29 L Hgb 8.5 L Hct 25.8 L MCV 112.7 H MCH 37.1 H MCHC 32.9 RDW Std Deviation 92.1 H RDW Coeff of Geovanni 22.9 H Plt Count 294 MPV 9.5 Immature Gran % (Auto) 0.2 Neut % (Auto) 24.6 Lymph % (Auto) 64.5 [place] % (Auto) 7.8 Eos % (Auto) 2.4 Baso % (Auto) 0.5 Neut # (Auto) 1.41 Lymph # (Auto) 3.70 H [place] # (Auto) 0.45 Eos # (Auto) 0.14 Baso # (Auto) 0.03 Immature Gran # (Auto) 0.01 Polychromasia 1+ Anisocytosis Present Macrocytosis Present Ovalocytes 1+ PT 14.7 H INR 1.5 H APTT PTT Ratio Sodium Potassium Chloride Carbon Dioxide Anion Gap BUN Creatinine Est Cr Clr Drug Dosing Est GFR ( Amer) Est GFR (Non-Af Amer) BUN/Creatinine Ratio Glucose Calcium Medications Administered Current Inpatient Medications Acetaminophen (Acetaminophen 325 Mg Tab) 650 mg PO Q4H PRN PRN Reason: Pain or Fever Stop: 06/13/21 23:10 Last Admin: 06/10/21 01:12 Dose: 650 mg Documented by: Amiodarone HCl (Amiodarone 200 Mg Tab) 200 mg PO DAILY [facility] Stop: 06/14/21 08:59 Last Admin: 06/12/21 07:31 Dose: 200 mg Documented by: Aspirin (Aspirin 81 Mg Ectab) 81 mg PO QAM [facility] Stop: 06/14/21 08:59 Last Admin: 06/12/21 07:32 Dose: 81 mg Documented by: Atorvastatin Calcium (Atorvastatin 40 Mg Tab) [facility] Stop: 06/20/21 08:59 Last Admin: 06/12/21 07:33 Dose: 40 mg Documented by: Azelastine HCl (Azelastine Hcl 0.1% Nasal 200 Sprays/27,400 Mcg Btl) 2 sprays NA BID [facility] Stop: 06/13/21 23:44 Last Admin: 06/12/21 07:34 Dose: 2 sprays Documented by: Cyanocobalamin (Cyanocobalamin 500 Mcg Tablet (Vitamin B-12)) 1,000 mcg PO DAILY [facility] Stop: 06/14/21 08:59 Last Admin: 06/12/21 07:33 Dose: 1,000 mcg Documented by: Fluticasone Propionate (Fluticasone Propionate Na Spr 16 Gm Btl) 1 sprays NA DAILY [facility] Stop: 06/14/21 08:59 Last Admin: 06/12/21 07:34 Dose: 1 sprays Documented by: Gabapentin (Gabapentin 100 Mg Cap) 100 mg PO 1700 [facility] Stop: 07/06/21 16:59 Last Admin: 06/11/21 16:02 Dose: 100 mg Documented by: Heparin Sodium/Dextrose (Heparin Sodium/Dextrose) 25,000 units in 500 mls @ 21 mls/hr IV .[id number] [facility]; Protocol Stop: 07/11/21 18:44 Last Titration: 06/12/21 05:58 Dose: 1,050 units/hr, 21 mls/hr Documented by: Potassium Chloride (K [place] / Wtr) 10 meq in 100 mls @ 100 mls/hr IV Q1H [facility]; Protocol Stop: 06/12/21 10:59 Ipratropium [place] (Ipratropium [place] Neb Soln 0.02% 2.5 Ml Vial) 0.5 mg INH Q6R PRN PRN Reason: Shortness Of Breath Or Wheezing Stop: 07/08/21 13:59 Levalbuterol HCl (Levalbuterol 1.25mg/0.5ml Neb) 1.25 mg INH Q6R PRN PRN Reason: Shortness Of Breath Or Wheezing Stop: 07/08/21 13:52 Levothyroxine Sodium (Levothyroxine Sodium 75 Mcg Tablet) 75 mcg PO DAILYBB [facility] Stop: 06/14/21 06:29 Last Admin: 06/12/21 06:01 Dose: 75 mcg Documented by: Lorazepam (Lorazepam 0.5 Mg Tab) 0.5 mg PO HS PRN PRN Reason: Insomnia Stop: 06/16/21 03:00 Last Admin: 06/11/21 23:53 Dose: 0.5 mg Documented by: Melatonin (Melatonin 3 Mg Tab) 3 mg PO HS PRN PRN Reason: Sleep Stop: 06/14/21 00:39 Last Admin: 06/09/21 19:58 Dose: 3 mg Documented by: Metoprolol Succinate (Metoprolol Succ 25mg Ext Rel Tab) 12.5 mg PO PM [facility] Stop: 06/29/21 20:59 Last Admin: 06/11/21 21:04 Dose: 12.5 mg Documented by: Nitroglycerin (Nitroglycerin Sl 0.4 Mg/Tab Tab) 0.4 mg SL UD PRN PRN Reason: Chest Pain Stop: 06/13/21 23:10 Polyethylene Glycol (Polyethylene (Miralax) 17 Gm Pack) 17 gm PO DAILY PRN PRN Reason: Constipation Stop: 06/15/21 20:48 Last Admin: 06/06/21 23:12 Dose: 17 gm Documented by: Potassium Chloride (Potassium Chloride Crtab 20 Meq Tabcr) 40 meq PO DAILY [facility] Stop: 07/09/21 08:59 Last Admin: 06/12/21 07:31 Dose: 40 meq Documented by: Pyridoxine HCl (Pyridoxine Hcl 50 Mg Tab) 100 mg PO BID [facility] Stop: 06/13/21 23:44 Last Admin: 06/12/21 07:33 Dose: 100 mg Documented by: Senna/Docusate Sodium (Docusate Sodium/Senna 50/8.6mg Tab) 1 tab PO HS [facility] Stop: 06/16/21 20:59 Last Admin: 06/11/21 21:03 Dose: 1 tab Documented by: Torsemide (Torsemide 10 Mg Tab) 40 mg PO QAM [facility] Stop: 07/08/21 10:59 Last Admin: 06/12/21 07:32 Dose: 40 mg Documented by: Triamcinolone Acetonide (Triamcinolone Acet 0.1% Oint 15 Gm Tube) 1 appln TOP HS PRN PRN Reason: Rash Stop: 06/13/21 23:10 Vitamin D (Cholecalciferol 1,000 Units 25 Mcg Tab) 1,000 units PO DAILY [facility] Stop: 06/14/21 08:59 Last Admin: 06/12/21 07:32 Dose: 1,000 units Documented by:
[2021-06-12] MEDS ORDERED: CARBAMIDE PEROXIDE 6.5% 15 ML BTL OT PRN (10:47)
[2021-06-12 12:32] LABS: Partial Thromboplastin Ratio 2.2
[2021-06-12 12:36] LABS: Partial Thromboplastin Time 57.5 Seconds (21.0-31.0)
--- NOTE | 2021-06-12 13:07 | Hospitalist Progress Note ---
Date of Service June 12, 2021 Assessment & Plan (1) CHF exacerbation: Plan: (1) Acute on chronic HFrEF (heart failure with reduced ejection fraction): (2) Ischemic cardiomyopathy: (3) Pleural effusion: (1) Acute on chronic HFrEF (heart failure with reduced ejection fraction): (1) Pleural effusion: R (1878 cc)>L (642 cc),2/2 to above, s/p Rt thoracentesis 05/30 (2.2L out), #lt thora 05/31 w/ 1L serous fluid out. Has underlying ischemic cardiomyopathy with an EF 25% and is wearing a life vest which was given to him on hospital discharge 03/20/21. IV diuretics per nephrology with continued dyspnea on exertion. FR 1.5 L daily. Strict Is and Os. Anthony not feasible d/t recent UTI Continue Toprol XL and aspirin. RYLEE/ARB contraindicated in renal disease. Atorvastatin initially held in LFT elevation 2/2 congestive hepatopathy but this has been restarted. Defer diuretic titration to Cardiology and Nephrology teams -->being optimized, pt was hypotensive after midday dose of diuretic Continue Torsemide 40mg daily Continue fluid restriction to 1.5L daily Pulmonary not recommending Pleurex catheter placement due to risk of infection plan for BiV pacer/defibrillator placement possible next week (2) Acute kidney injury superimposed on chronic kidney disease: Recent increased diuretic use as outpatient prior to hospitalization. Possible etiology also cardiorenal syndrome per nephro. Creatinine stable at 2.31, baseline creat 2.5. No HD per Nephro Continue torsemide 40 mg daily as per nephrology Continue monitor BMP while on diuresis (3)Ischemic cardiomyopathy: presumed per cardiology -> Lexiscan nuclear stress test demonstrated myocardial scar without superimposed ischemia, no benefit to cardiac cath at this time. Will need OP EP consultation (consideration for [employer] capable ICD after 3 months of evidence-based medical therapy (approx 06/26/21). plan for BiV pacer/defibrillator placement as inpatient next week (4) Ventricular tachycardia: maintains life vest. After foot and urine infections are cleared up, plan will be for outpatient EP consultation for consideration of [employer] capable ICD. discussed with Dr. Fox, plan for BiV pacer/defibrillator placement as inpatient next week (5)Atrial fibrillation: Per cardiology, two brief episodes of afib noted 05/19 and . Continue amiodarone, Toprol-XL. Warfarin resumed 05/30; heparin drip as bridge--to stop when INR >1.9, daily pt/inr INR 1.5 today Spoke to cardiology and will start on started since patient claims for BiV pacer/defibrillator placement possible Monday or Monday Continue to hold warfarin-anticipate procedure Son's Grey was informed yesterday and agreed with the plan (6) Pain of left heel: Recent thrombectomy of his left lower extremity in Mar 2021 after an NSTEMI and bilateral thoracentesis. He is subsequently developed a pressure ulcer that was painful on the left heel. Vascular evaluated and no further interventions needed. Cont medical management of peripheral vascular disease. Stable (7) Aortic stenosis: (8) Elevated transaminase level: Likely secondary to congestive hepatopathy, right upper quadrant ultrasound is within normal limits. This is improved and atorvastatin was restarted. (9) Anemia in CKD (chronic kidney disease): Continues on Procrit as outpatient. Received 1 unit PRBC during the hospital course Hemoglobin today 8.5 Continue monitor H&H (10) UTI (urinary tract infection): 05/20 urine culture positive for E. coli sensitive to cefepime and ceftriaxone. completed antibiotic course- Cefuroxime and Cefdinir (11) DVT prophylaxis: INR 1.5-Coumadin on hold Continue on heparin drip for now Full code Disposition Will discharge once medically stable Son updated on 06/11 Admission and Anticipated Discharge Date Admission Date: May 14, 2021 Subjective Patient was seen and examined for follow-up of shortness of breath due to CHF Lying in bed with no acute distress watching TV he said he cannot fall asleep He could not fall asleep last night. He only had a few hours sleep before the staff woke him up for vital sign Denies any chest pain, palpitation, shortness of breath and Dizziness Review of Systems Review of Systems: All systems reviewed & are unremarkable except as noted in Subjective Physical Exam Physical Exam: General- No acute distress Head- atraumatic Eyes- PERRL, EOMI, ENT- oropharynx clear Neck- supple, no JVD Lungs- +diminished BS Heart- regular rhythm; no murmur Abdomen- normal bowel sounds, soft, nontender Extremities- no calf tenderness Neuro- alert, oriented x 3; PERRL, EOMI; no facial palsy; no dysarthria Skin- warm & dry Results & Data Results & Data ([facility]) Vital Signs (Past 12 Hours) Vital Signs Temp Pulse Pulse Resp BP Pulse Ox 06/12/21 11:15 36.4 C L 76 18 91/57 L 95 06/12/21 08:00 68 06/12/21 07:17 36.5 C 65 16 91/50 L 94 06/12/21 03:34 36.5 C 89 18 88/64 L 94
[2021-06-12] MEDS: GABAPENTIN 100 MG CAP PO SCH (17:19)
[2021-06-12] MEDS: HEPARIN SODIUM/DEXTROSE 25,000 UNITS/500 ML BAG IV SCH (17:20)
[2021-06-12] MEDS ORDERED: POTASSIUM CHLORIDE CRTAB 20 MEQ TABCR PO ONE (20:00)
[2021-06-12] MEDS: METOPROLOL SUCC 25MG EXT REL TAB PO SCH (20:28)
[2021-06-12] MEDS: DOCUSATE SODIUM/SENNA 50/8.6MG TAB PO SCH (20:29)
[2021-06-13] MEDS: POLYETHYLENE (MIRALAX) 17 GM PACK PO PRN (02:27)
[2021-06-13] MEDS: LEVOTHYROXINE SODIUM 75 MCG TABLET PO SCH (05:38)
[2021-06-13 06:59] LABS: Hematocrit (blood only) 26.5 % (42-52); Hemoglobin 8.6 g/dL (14.0-18.0); Mean Corpuscular Hemoglobin 36.6 pg (25-34); Mean Corpuscular Hgb Conc 32.5 g/dL (32-36); Mean Corpuscular Volume 112.8 fL (80-100); Mean Platelet Volume 9.3 fL (7.4-10.4); Platelet Count 301 K/uL (130-400); RDW Coefficient of Variation 23.1 % (11.5-14.5); RDW Standard Deviation 93.4 fL (36.4-46.3); Red Blood Count 2.35 M/uL (4.7-6.1); White Blood Count 6.13 K/uL (4.8-10.8)
[2021-06-13 07:10] LABS: INR 1.5 (0.9-1.1); Prothrombin Time 14.6 Seconds (9.0-12.0)
[2021-06-13 07:22] LABS: Anisocytosis Present; Basophils # (auto) 0.06 K/uL (0-0.2); Eosinophils # (auto) 0.14 K/uL (0-0.5); Eosinophils % (auto) 2.3 %; Immature Granulocytes # (auto) 0.01 K/uL (0.00-0.02); Immature Granulocytes % (auto) 0.2 %; Lymphocytes # (auto) 4.07 K/uL (1.2-3.4); Lymphocytes % (auto) 66.4 %; Macrocytosis Present; Monocytes # (auto) 0.38 K/uL (0.11-0.59); Monocytes % (auto) 6.2 %; Neutrophils # (auto) 1.47 K/uL (1.4-6.5); Neutrophils % (auto) 23.9 %; Ovalocytes 1+
[2021-06-13 07:31] LABS: BUN Creatinine Ratio 36.2 (10-20); Creatinine Clr Calc Pharmacy 23.6 ml/min; Est GFR (African American) 28.9 ml/min; Est GFR (Non-African American) 24.9 ml/min; Potassium 3.5 mmol/L (3.5-5.1)
[2021-06-13] MEDS: PYRIDOXINE HCL 50 MG TAB PO SCH ×2 (08:18→21:10)
[2021-06-13] MEDS: POTASSIUM CHLORIDE CRTAB 20 MEQ TABCR PO SCH (08:19)
[2021-06-13] MEDS: ASPIRIN 81 MG ECTAB PO SCH (08:19)
[2021-06-13] MEDS: TORSEMIDE 10 MG TAB PO SCH (08:19)
[2021-06-13] MEDS: ATORVASTATIN 40 MG TAB PO SCH (08:19)
[2021-06-13] MEDS: AMIODARONE 200 MG TAB PO SCH (08:19)
[2021-06-13] MEDS: CHOLECALCIFEROL 1,000 UNITS 25 MCG TAB PO SCH (08:19)
[2021-06-13] MEDS: FLUTICASONE PROPIONATE NA SPR 16 GM BTL SCH (08:20)
[2021-06-13] MEDS: AZELASTINE HCL 0.1% NASAL 200 SPRAYS/27,400 MCG BTL SCH ×2 (08:20→21:10)
[2021-06-13] MEDS: CYANOCOBALAMIN 500 MCG TABLET (VITAMIN B-12) PO SCH (08:20)
[2021-06-13 09:14] LABS: Partial Thromboplastin Ratio 2.9
[2021-06-13 09:16] LABS: Partial Thromboplastin Time 75.9 Seconds (21.0-31.0)
[2021-06-13] MEDS: HEPARIN SODIUM/DEXTROSE 25,000 UNITS/500 ML BAG IV SCH ×2 (09:49→17:40)
--- NOTE | 2021-06-13 11:34 | Nephrology Progress Note ---
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 Baseline creatinine of 2.5. Admission creatinine of 3.8 and plateau'd at about 2.6 for several days; creatinine down to 2.3. Potassium low at 2.8 - Continue with torsemide 40 daily. - replace potassium as needed. -cont dialysis diet and 1.5L FR -Monitor input output - needs I/O best we can -Daily BMP -Patient likely needs to start planning for dialysis for volume control. Follows with me. (2) Acute decompensated heart failure: Plan: Patient with a low EF of 25% and pulmonary hypertension. Longer term for OP EP consult mid June, after appropriate medical tx window/optimization -diuretics as above Continue fluid limit 1.5 L daily (in general he takes in less than 1 L); continue less than 2 g daily sodium diet (3) Anemia due to chronic disease treated with erythropoietin: Plan: Patient received Procrit 20k units. We will continue to monitor and give Procrit as needed Admission and Anticipated Discharge Date Admission Date: May 14, 2021 Subjective Patient was seen and examined for follow-up of shortness of breath due to CHF Sitting out in chair with no acute distress Denies any chest pain, palpitation, shortness of breath and Dizziness Review of Systems Review of Systems: Comfortable at rest No pedal edema. Passing urine. Physical Exam Physical Exam: General exam: Appears comfortable, no acute distress HEENT: Pupils are equal and reactive to light Neck: No JVD, neck is supple trachea is midline Respiratory system: Reduced breath sounds in the bases bilaterally. Gastrointestinal: Abdomen is soft, non distended, non tender, bowel sounds are present CVS: Regular rate and rhythm. No murmurs, rubs or gallops Musculoskeletal: No joint or muscle tenderness Extremities: Non tender, trace edema, peripheral pulses are present Neuro: Oriented, no tremors, no focal neurological deficits Skin: No rashes Results & Data ([facility]) Vital Signs (Past 12 Hours) Vital Signs Temp Pulse Resp BP BP Pulse Ox 06/13/21 11:08 36.6 C 66 20 90/57 L 91 06/13/21 07:30 36.6 C 91 H 19 91/56 L 96 06/13/21 04:31 36.5 C 65 16 92/57 L 98 Laboratory Results 06/13/21 06:33 06/13/21 06:33
--- NOTE | 2021-06-13 12:03 | Cardiology Progress Note ---
Date of Service June 13, 2021 Assessment & Plan (1) CLL (chronic lymphocytic leukemia): (2) CHF exacerbation: (3) CKD (chronic kidney disease): (4) Cardiomyopathy: (5) LBBB (left bundle branch block): Plan: EF patient may be having a device implant tomorrow so I will make him n.p.o. after midnight. Admission and Anticipated Discharge Date Admission Date: May 14, 2021 Subjective The patient is status quo with no new complaints. Review of Systems Review of Systems: Review of Systems: See HPI for pertinent positives. All other 10 point review of systems are negative. Physical Exam Physical Exam: General: no acute distress and stated age Head: normocephalic, no masses, lesions, tenderness or abnormalities Eyes: conjunctiva are pink and non-injected, sclera clear Neck: supple, no adenopathy, no bruits, normal jugular venous pulse, no hepatojugular reflux Chest: normal shape and normal respiratory effort Lungs: clear to auscultation and percussion Cardiac Exam: - regular rate & rhythm, no murmurs gallops or rubs - normal S1, normal S2 Pulses: 2(+) throughout Abdomen: abdomen soft, non-tender, no abnormal masses and no hepatosplenomegaly Musculoskeletal: no gait disturbance, no joint inflammation, no deforming arthritis Extremities: no edema and no cyanosis Neuro: grossly normal exam Results & Data ([facility]) Vital Signs (Past 12 Hours) Vital Signs Temp Pulse Resp BP BP Pulse Ox 06/13/21 11:08 36.6 C 66 20 90/57 L 91 06/13/21 07:30 36.6 C 91 H 19 91/56 L 96 06/13/21 04:31 36.5 C 65 16 92/57 L 98 Laboratory Results Laboratory Results - last 24 hr 06/12/21 06/13/21 06/13/21 11:52 06:33 06:33 WBC 6.13 RBC 2.35 L Hgb 8.6 L Hct 26.5 L MCV 112.8 H MCH 36.6 H MCHC 32.5 RDW Std Deviation 93.4 H RDW Coeff of Geovanni 23.1 H Plt Count 301 MPV 9.3 Immature Gran % (Auto) 0.2 Neut % (Auto) 23.9 Lymph % (Auto) 66.4 [place] % (Auto) 6.2 Eos % (Auto) 2.3 Baso % (Auto) 1.0 Neut # (Auto) 1.47 Lymph # (Auto) 4.[address] [place] # (Auto) 0.38 Eos # (Auto) 0.14 Baso # (Auto) 0.06 Immature Gran # (Auto) 0.01 Anisocytosis Present Macrocytosis Present Ovalocytes 1+ PT 14.6 H INR 1.5 H APTT 57.5 H* PTT Ratio 2.2 Sodium Potassium Chloride Carbon Dioxide Anion Gap BUN Creatinine Est Cr Clr Drug Dosing Est GFR ( Amer) Est GFR (Non-Af Amer) BUN/Creatinine Ratio Glucose Calcium Specimen Hemolysis 06/13/21 06/13/21 06:33 06:33 WBC RBC Hgb Hct MCV MCH MCHC RDW Std Deviation RDW Coeff of [place]ovanni Plt Count MPV Immature Gran % (Auto) Neut % (Auto) Lymph % (Auto) [place] % (Auto) Eos % (Auto) Baso % (Auto) Neut # (Auto) Lymph # (Auto) [place] # (Auto) Eos # (Auto) Baso # (Auto) Immature Gran # (Auto) Anisocytosis Macrocytosis Ovalocytes PT INR APTT 75.9 H* PTT Ratio 2.9 Sodium 139 Potassium 3.5 D Chloride 103 Carbon Dioxide 31 Anion Gap 6.0 BUN 86 H Creatinine 2.37 H Est Cr Clr Drug Dosing 23.6 Est GFR ( Amer) 28.9 Est GFR (Non-Af Amer) 24.9 BUN/Creatinine Ratio 36.2 H Glucose 101 H Calcium 8.0 L Specimen Hemolysis Medications Administered Current Inpatient Medications Acetaminophen (Acetaminophen 325 Mg Tab) 650 mg PO Q4H PRN PRN Reason: Pain or Fever Stop: 06/13/21 23:10 Last Admin: 06/10/21 01:12 Dose: 650 mg Documented by: Amiodarone HCl (Amiodarone 200 Mg Tab) 200 mg PO DAILY [facility] Stop: 06/14/21 08:59 Last Admin: 06/13/21 08:19 Dose: 200 mg Documented by: Aspirin (Aspirin 81 Mg Ectab) 81 mg PO QAM [facility] Stop: 06/14/21 08:59 Last Admin: 06/13/21 08:19 Dose: 81 mg Documented by: Atorvastatin Calcium (Atorvastatin 40 Mg Tab) [facility] [place] Stop: 06/20/21 08:59 Last Admin: 06/13/21 08:19 Dose: 40 mg Documented by: Azelastine HCl (Azelastine Hcl 0.1% Nasal 200 Sprays/27,400 Mcg Btl) 2 sprays NA BID [facility] Stop: 06/13/21 23:44 Last Admin: 06/13/21 08:20 Dose: 2 sprays Documented by: Carbamide Peroxide (Carbamide Peroxide 6.5% 15 Ml Btl) 2 - 3 drops OT TID PRN PRN Reason: wax removal Stop: 06/16/21 13:59 Cyanocobalamin (Cyanocobalamin 500 Mcg Tablet (Vitamin B-12)) 1,000 mcg PO DAILY [facility] Stop: 06/14/21 08:59 Last Admin: 06/13/21 08:20 Dose: 1,000 mcg Documented by: Fluticasone Propionate (Fluticasone Propionate Na Spr 16 Gm Btl) 1 sprays NA DAILY [facility] Stop: 06/14/21 08:59 Last Admin: 06/13/21 08:20 Dose: 1 sprays Documented by: Gabapentin (Gabapentin 100 Mg Cap) 100 mg PO 1700 PRN PRN Reason: neuropathy pain Stop: 07/06/21 16:59 Heparin Sodium/Dextrose (Heparin Sodium/Dextrose) 25,000 units in 500 mls @ 20 mls/hr IV .Q24H [facility]; Protocol Stop: 07/11/21 18:44 Last Admin: 06/13/21 09:49 Dose: Not Given Documented by: Ipratropium [place] (Ipratropium [place] Neb Soln 0.02% 2.5 Ml Vial) 0.5 mg INH Q6R PRN PRN Reason: Shortness Of Breath Or Wheezing Stop: 07/08/21 13:59 Levalbuterol HCl (Levalbuterol 1.25mg/0.5ml Neb) 1.25 mg INH Q6R PRN PRN Reason: Shortness Of Breath Or Wheezing Stop: 07/08/21 13:52 Levothyroxine Sodium (Levothyroxine Sodium 75 Mcg Tablet) 75 mcg PO DAILYBB [facility] Stop: 06/14/21 06:29 Last Admin: 06/13/21 05:38 Dose: 75 mcg Documented by: Lorazepam (Lorazepam 0.5 Mg Tab) 0.5 mg PO HS PRN PRN Reason: Insomnia Stop: 06/16/21 03:00 Last Admin: 06/11/21 23:53 Dose: 0.5 mg Documented by: Melatonin (Melatonin 3 Mg Tab) 3 mg PO HS PRN PRN Reason: Sleep Stop: 06/14/21 00:39 Last Admin: 06/09/21 19:58 Dose: 3 mg Documented by: Metoprolol Succinate (Metoprolol Succ 25mg Ext Rel Tab) 12.5 mg PO PM [facility] Stop: 06/29/21 20:59 Last Admin: 06/12/21 20:28 Dose: 12.5 mg Documented by: Nitroglycerin (Nitroglycerin Sl 0.4 Mg/Tab Tab) 0.4 mg SL UD PRN PRN Reason: Chest Pain Stop: 06/13/21 23:10 Polyethylene Glycol (Polyethylene (Miralax) 17 Gm Pack) 17 gm PO DAILY PRN PRN Reason: Constipation Stop: 06/15/21 20:48 Last Admin: 06/13/21 02:27 Dose: 17 gm Documented by: Potassium Chloride (Potassium Chloride Crtab 20 Meq Tabcr) 40 meq PO DAILY [facility] Stop: 07/09/21 08:59 Last Admin: 06/13/21 08:19 Dose: 40 meq Documented by: Pyridoxine HCl (Pyridoxine Hcl 50 Mg Tab) 100 mg PO BID [facility] Stop: 06/13/21 23:44 Last Admin: 06/13/21 08:18 Dose: 100 mg Documented by: Senna/Docusate Sodium (Docusate Sodium/Senna 50/8.6mg Tab) 1 tab PO HS [facility] Stop: 06/16/21 20:59 Last Admin: 06/12/21 20:29 Dose: 1 tab Documented by: Torsemide (Torsemide 10 Mg Tab) 40 mg PO QAM [facility] Stop: 07/08/21 10:59 Last Admin: 06/13/21 08:19 Dose: 40 mg Documented by: Triamcinolone Acetonide (Triamcinolone Acet 0.1% Oint 15 Gm Tube) 1 appln TOP HS PRN PRN Reason: Rash Stop: 06/13/21 23:10 Vitamin D (Cholecalciferol 1,000 Units 25 Mcg Tab) 1,000 units PO DAILY [facility] Stop: 06/14/21 08:59 Last Admin: 06/13/21 08:19 Dose: 1,000 units Documented by:
[2021-06-13 16:18] LABS: Partial Thromboplastin Ratio 2.4
[2021-06-13 16:23] LABS: Partial Thromboplastin Time 62.1 Seconds (21.0-31.0)
--- NOTE | 2021-06-13 19:01 | Hospitalist Progress Note ---
Date of Service June 13, 2021 Assessment & Plan (1) CHF exacerbation: Plan: (1) Acute on chronic HFrEF (heart failure with reduced ejection fraction): (2) Ischemic cardiomyopathy: (3) Pleural effusion: (1) Acute on chronic HFrEF (heart failure with reduced ejection fraction): (1) Pleural effusion: R (1878 cc)>L (642 cc),2/2 to above, s/p Rt thoracentesis 05/30 (2.2L out), #lt thora 05/31 w/ 1L serous fluid out. Has underlying ischemic cardiomyopathy with an EF 25% and is wearing a life vest which was given to him on hospital discharge 03/20/21. IV diuretics per nephrology with continued dyspnea on exertion. FR 1.5 L daily. Strict Is and Os. Anthony not feasible d/t recent UTI Continue Toprol XL and aspirin. RYLEE/ARB contraindicated in renal disease. Atorvastatin initially held in LFT elevation 2/2 congestive hepatopathy but this has been restarted. Defer diuretic titration to Cardiology and Nephrology teams -->being optimized, pt was hypotensive after midday dose of diuretic Continue Torsemide 40mg daily Continue fluid restriction to 1.5L daily Pulmonary not recommending Pleurex catheter placement due to risk of infection plan for BiV pacer/defibrillator placement possible next week N.p.o. after midnight for possible BiV pacer/defibrillator in a.m. (2) Acute kidney injury superimposed on chronic kidney disease: Recent increased diuretic use as outpatient prior to hospitalization. Possible etiology also cardiorenal syndrome per nephro. Creatinine stable at 2.37, baseline creat 2.5. No HD per Nephro Continue torsemide 40 mg daily as per nephrology Continue monitor BMP while on diuresis (3)Ischemic cardiomyopathy: presumed per cardiology -> Lexiscan nuclear stress test demonstrated myocardial scar without superimposed ischemia, no benefit to cardiac cath at this time. Will need OP EP consultation (consideration for [employer] capable ICD after 3 months of evidence-based medical therapy (approx 06/26/21). plan for BiV pacer/defibrillator placement as inpatient possible this week (4) Ventricular tachycardia: maintains life vest. After foot and urine infections are cleared up, plan will be for outpatient EP consultation for consideration of [employer] capable ICD. discussed with Dr. Fox, plan for BiV pacer/defibrillator placement as inpatient next week (5)Atrial fibrillation: Per cardiology, two brief episodes of afib noted 05/19 and . Continue amiodarone, Toprol-XL. Warfarin resumed 05/30; heparin drip as bridge--to stop when INR >1.9, daily pt/inr INR 1.5 today Spoke to cardiology and will start on started since patient claims for BiV pacer/defibrillator placement possible Monday or Monday Continue to hold warfarin-anticipate procedure Son's Grey was informed yesterday and agreed with the plan (6) Pain of left heel: Recent thrombectomy of his left lower extremity in Mar 2021 after an NSTEMI and bilateral thoracentesis. He is subsequently developed a pressure ulcer that was painful on the left heel. Vascular evaluated and no further interventions needed. Cont medical management of peripheral vascular disease. Stable (7) Aortic stenosis: (8) Elevated transaminase level: Likely secondary to congestive hepatopathy, right upper quadrant ultrasound is within normal limits. This is improved and atorvastatin was restarted. (9) Anemia in CKD (chronic kidney disease): Continues on Procrit as outpatient. Received 1 unit PRBC during the hospital course Hemoglobin today 8.6 Continue monitor H&H (10) UTI (urinary tract infection): 05/20 urine culture positive for E. coli sensitive to cefepime and ceftriaxone. completed antibiotic course- Cefuroxime and Cefdinir (11) DVT prophylaxis: INR 1.5-Coumadin on hold Continue on heparin drip for now Full code Disposition Will discharge once medically stable Son updated on 06/11 Admission and Anticipated Discharge Date Admission Date: May 14, 2021 Subjective Patient was seen and examined for follow-up of shortness of breath due to CHF Lying in bed with no acute distress watching TV We will make him n.p.o. after midnight for possible BiV placement in a.m. Denies any chest pain, palpitation, shortness of breath and Dizziness Review of Systems Review of Systems: All systems reviewed & are unremarkable except as noted in Subjective Physical Exam Physical Exam: General- No acute distress Head- atraumatic Eyes- PERRL, EOMI, ENT- oropharynx clear Neck- supple, no JVD Lungs- +diminished BS Heart- regular rhythm; no murmur Abdomen- normal bowel sounds, soft, nontender Extremities- no calf tenderness Neuro- alert, oriented x 3; PERRL, EOMI; no facial palsy; no dysarthria Skin- warm & dry Results & Data Results & Data ([facility]) Vital Signs (Past 12 Hours) Vital Signs Temp Pulse Resp BP BP Pulse Ox 06/13/21 15:35 36.7 C 63 19 91/53 L 96 06/13/21 11:08 36.6 C 66 20 90/57 L 91 06/13/21 07:30 36.6 C 91 H 19 91/56 L 96
[2021-06-13] MEDS: DOCUSATE SODIUM/SENNA 50/8.6MG TAB PO SCH (21:10)
[2021-06-13] MEDS: METOPROLOL SUCC 25MG EXT REL TAB PO SCH (21:11)
--- NOTE | 2021-06-14 03:34 | Communication Note ---
Date of Service: June 14, 2021 Patient with bright red blood from Anthony catheter as per RN. No abdominal pain as per RN. AP Hematuria Check UA CBC now Hold aspirin, IV heparin for now. Will relay to AM provider.
[2021-06-14 04:32] LABS: Hematocrit (blood only) 27.1 % (42-52); Hemoglobin 8.7 g/dL (14.0-18.0); Mean Corpuscular Hemoglobin 36.7 pg (25-34); Mean Corpuscular Hgb Conc 32.1 g/dL (32-36); Mean Corpuscular Volume 114.3 fL (80-100); Mean Platelet Volume 9.5 fL (7.4-10.4); Platelet Count 319 K/uL (130-400); RDW Coefficient of Variation 22.9 % (11.5-14.5); Red Blood Count 2.37 M/uL (4.7-6.1)
[2021-06-14 04:52] LABS: INR 1.4 (0.9-1.1); Partial Thromboplastin Ratio 2.1; Prothrombin Time 14.1 Seconds (9.0-12.0)
[2021-06-14 04:56] LABS: BUN Creatinine Ratio 33.7 (10-20); Calcium 8.7 mg/dl (8.5-10.1); Creatinine Clr Calc Pharmacy 24.9 ml/min; Est GFR (African American) 30.8 ml/min; Est GFR (Non-African American) 26.5 ml/min; Potassium 3.6 mmol/L (3.5-5.1)
[2021-06-14 05:16] LABS: Partial Thromboplastin Time 55.3 Seconds (21.0-31.0)
[2021-06-14 05:37] LABS: Appearance Urine Cloudy (Clear); Color Urine Red; Specific Gravity Urine 1.012 (1.000-1.030)
[2021-06-14 05:39] LABS: RBC Urine >30 /hpf (0-4)
[2021-06-14 05:40] LABS: Bacteria Urine Negative (Negative); Mucus Urine Present (None Prsent); WBC Urine >30 /hpf (0-5)
[2021-06-14] MEDS: GABAPENTIN 100 MG CAP PO PRN (07:34)
[2021-06-14] MEDS: POTASSIUM CHLORIDE CRTAB 20 MEQ TABCR PO SCH (07:34)
[2021-06-14] MEDS: ATORVASTATIN 40 MG TAB PO SCH (07:35)
[2021-06-14] MEDS: TORSEMIDE 10 MG TAB PO SCH (07:35)
[2021-06-14] MEDS: FLUTICASONE PROPIONATE NA SPR 16 GM BTL SCH (07:36)
--- NOTE | 2021-06-14 07:43 | Nephrology Progress Note ---
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 Baseline creatinine of 2.5. Admission creatinine of 3.8 and plateau'd at about 2.6 for several days; creatinine down to 2.3. - Continue with torsemide 40 daily. - replace potassium as needed. -cont dialysis diet and 1.5L FR -Monitor input output - needs I/O best we can -Daily BMP -Patient likely needs to start planning for dialysis for volume control. Follows with me. (2) Acute decompensated heart failure: Plan: Patient with a low EF of 25% and pulmonary hypertension. Longer term for OP EP consult mid June, after appropriate medical tx window/optimization -diuretics as above Continue fluid limit 1.5 L daily (in general he takes in less than 1 L); continue less than 2 g daily sodium diet (3) Anemia due to chronic disease treated with erythropoietin: Plan: Patient received Procrit 20k units. We will continue to monitor and give Procrit weekly Subjective Patient was seen and examined for follow-up of shortness of breath due to CHF Sitting out in chair with no acute distress Denies any chest pain, palpitation, shortness of breath and Dizziness Review of Systems Review of Systems: Comfortable at rest No pedal edema. Passing urine. Physical Exam Physical Exam: General exam: Appears comfortable, no acute distress HEENT: Pupils are equal and reactive to light Neck: No JVD, neck is supple trachea is midline Respiratory system: Reduced breath sounds in the bases bilaterally. Gastrointestinal: Abdomen is soft, non distended, non tender, bowel sounds are present CVS: Regular rate and rhythm. No murmurs, rubs or gallops Musculoskeletal: No joint or muscle tenderness Extremities: Non tender, trace edema, peripheral pulses are present Neuro: Oriented, no tremors, no focal neurological deficits Skin: No rashes Results & Data ([facility]) Vital Signs (Past 12 Hours) Vital Signs Temp Pulse Resp BP Pulse Ox 06/14/21 07:06 36.4 C L 67 18 102/65 95 06/14/21 03:43 36.6 C 68 18 97/60 L 98 06/14/21 00:12 36.6 C 68 18 94/58 L 91 06/13/21 21:08 69 103/67 06/13/21 19:57 36.6 C 68 19 94/56 L 95
[2021-06-14 10:15] LABS: Hematocrit (blood only) 26.6 % (42-52); Hemoglobin 8.8 g/dL (14.0-18.0)
--- NOTE | 2021-06-14 10:47 | Cardiology Progress Note ---
Date of Service June 14, 2021 Assessment & Plan (1) CHF exacerbation: Plan: Prolonged hospital stay, hospital day 31 1. Acute on chronic heart failure with reduced ejection fraction, presumed ischemic cardiomyopathy, nuclear perfusion study performed this admission revealing large LAD territory scar, LVEF 25% 2. Cardiorenal syndrome, creatine stable, 2.25 on 06/14/21. 3. Longstanding left bundle branch block, with progression noted this admission, QRS duration 160-170 ms, echocardiographic evidence of LV dyssynchrony 4. Baseline moderate aortic stenosis, noted at time of echocardiogram November,, at which time LVEF was normal. 5. Myelodysplastic syndrome with chronic anemia 6. paroxysmal atrial fibrillation - Patient is status post bilateral thoracentesis during admission March,. Repeat right thoracentesis 05/30/2021, left thoracentesis performed 05/31/2021. Heparin bridge and ASA held overnight due to concerns of hematuria. Will have hospitalist team follow up this afternoon and if practical , resume ASA and heparin bridge given high risk of embolic disease, with h/o acute embolism to the left foot 2 months ago in the setting of paroxysmal atrial fibrillation with anticoagulation held for a procedure then. Continue torsemide, amiodarone, metoprolol, atorvastatin. As of 06/10/21, he is now 3 months post initial diagnosis of severe LV systolic dysfunction. Based on perfusion imaging performed earlier this month, no ischemia noted. Remains in congestive heart failure despite hospital level medication therapy. Medication treatment limited by relative hypotension, and renal insufficiency. Has history of embolization to the left lower extremity as well as underlying severe left-sided peripheral arterial disease. Left heel pressure ulcer noted earlier this hospital stay, healing well with local wound care. Feed today, 06/14/21. Tentatively plan for patient to remain in hospital for consideration of biventricular pacemaker AICD on 06/16/21 with thoughts that he may have a significant clinical improvement with initiation of cardiac resynchronization therapy. Admission and Anticipated Discharge Date Admission Date: May 14, 2021 Subjective Javier Toledo is seen in cardiology follow up of ischemic cardiomyopathy with acute on chronic heart failure with reduced ejection fraction and chronic left bundle branch block. Denies any acute complaints at present. Able to lie supine without orthopnea. Telemetry reveals SB and SR in the 50-60s, with first degree AVB, and LBBB, no recent recurrent AF in since 07/11/20. Review of Systems Review of Systems: Review of Systems: See HPI for pertinent positives. All other 10 point review of systems are negative. Physical Exam Physical Exam: Temp Pulse Resp BP Pulse Ox 36.4 C L 65 18 102/65 95 06/14/21 07:06 06/14/21 09:37 06/14/21 07:06 06/14/21 07:06 06/14/21 07:06 Constitutional: + ill appearing (no acute distress ); no acute distress Respiratory: Auscultation: + diminished lung sounds (decreased BS at the bases right worse than left ); no crackles and no wheezes Cardiovascular: Rate/Rhythm: regular rate Heart Sounds: + murmur (1/6 systolic murmur) Extremities: + edema (Edema resolved) Gastrointestinal (Abdomen): normal bowel sounds, soft, nontender, no hepatosplenomegaly Musculoskeletal: left foot examined. Small pressure ulcer on left heel (stable) no erythema. Neurologic: PERRL, EOMI, accommodation nl, no face palsy, no dysarthria Results & Data ([facility]) Vital Signs (Past 12 Hours) Vital Signs Temp Pulse Pulse Resp BP Pulse Ox 06/14/21 09:37 65 06/14/21 07:06 36.4 C L 67 18 102/65 95 06/14/21 03:43 36.6 C 68 18 97/60 L 98 06/14/21 00:12 36.6 C 68 18 94/58 L 91 Laboratory Results Coagulation 06/14/21 3:58 am, INR 1.4 06/13/21 06/14/21 Range/Units 15:17 03:58 PT 14.1 H (9.0-12.0) Seconds APTT 62.1 H* 55.3 H* (21.0-31.0) Seconds CBC 06/14/21 06/14/21 Range/Units 03:58 10:03 WBC 6.10 (4.8-10.8) K/uL RBC 2.37 L (4.7-6.1) M/uL Hgb 8.7 L 8.8 L (14.0-18.0) g/dL Hct 27.1 L 26.6 L (42-52) % Plt Count 319 (130-400) K/uL Comprehensive Metabolic Panel 06/14/21 Range/Units 03:58 Sodium 139 (136-145) mmol/L Potassium 3.6 (3.5-5.1) mmol/L Chloride 101 (98-107) mmol/L Carbon Dioxide 29 (21-32) mmol/L BUN 76 H (7-18) mg/dl Creatinine 2.25 H (0.6-1.4) mg/dl Glucose 99 (70-99) mg/dl Calcium 8.7 (8.5-10.1) mg/dl Intake and Output 06/13/21 06/14/21 06/14/21 22:59 06:59 14:59 Intake Total 201.383 / 1459.666 163.333 / 1459.666 Output Total 2226 450 / 2226 Balance -723.617 / -767.334 -286.667 / -767.334 Intake: IV 201.383 / 699.666 163.333 / 699.666 Heparin Sodium/Dextrose 25,000 201.383 / 699.666 163.333 / 699.666 units In 500 ml @ 1,000 UNITS/ HR 20 mls/hr IV .Q24H [facility] Rx#: [id number] Output: Urine Amount (Catheter) 2224 450 / 5 Anthony/Indwelling 2224 450 / 2224 Other: Weight 74.9 kg Weight Measurement Method Built in [facility]
[2021-06-14] MEDS ORDERED: EPOETIN ALFA 20,000 UNITS/ML VIAL SQ ONE (12:00)
--- NOTE | 2021-06-14 15:56 | Hospitalist Progress Note ---
Date of Service June 14, 2021 Assessment & Plan (1) CHF exacerbation: Plan: (1) Acute on chronic HFrEF (heart failure with reduced ejection fraction): (2) Ischemic cardiomyopathy: (3) Pleural effusion: (1) Acute on chronic HFrEF (heart failure with reduced ejection fraction): (1) Pleural effusion: R (1878 cc)>L (642 cc),2/2 to above, s/p Rt thoracentesis 05/30 (2.2L out), #Lt thora 05/31 w/ 1L serous fluid out. Has underlying ischemic cardiomyopathy with an EF 25% and is wearing a life vest which was given to him on hospital discharge 03/20/21. IV diuretics per nephrology with continued dyspnea on exertion. FR 1.5 L daily. Strict Is and Os. Anthony not feasible d/t recent UTI Continue Toprol XL and aspirin. RYLEE/ARB contraindicated in renal disease. Atorvastatin initially held in LFT elevation 2/2 congestive hepatopathy but this has been restarted. Defer diuretic titration to Cardiology and Nephrology teams -->being optimized, pt was hypotensive after midday dose of diuretic Continue Torsemide 40mg daily Pulmonary not recommending Pleurex catheter placement due to risk of infection Plan for BiV pacer/defibrillator placement possible next week N.p.o. after midnight on 06/15/2021 for possible BiV pacer/defibrillator on 06/16/2021 (2) Acute kidney injury superimposed on chronic kidney disease: Recent increased diuretic use as outpatient prior to hospitalization. Possible etiology also cardiorenal syndrome per nephro. Creatinine stable at 2.37, baseline creat 2.5. No HD per Nephro Continue torsemide 40 mg daily as per nephrology Continue monitor BMP while on diuresis (3)Ischemic cardiomyopathy: Presumed per cardiology -> Lexiscan nuclear stress test demonstrated myocardial scar without superimposed ischemia, no benefit to cardiac cath at this time. Will need OP EP consultation (consideration for [employer]INTER capable ICD after 3 months of evidence-based medical therapy (approx 06/26/21). plan for BiV pacer/defibrillator placement as inpatient possible this week (4) Ventricular tachycardia: Maintains life vest. After foot and urine infections are cleared up, plan will be for outpatient EP consultation for consideration of S[employer] WR[employer] PAINTER capable ICD. (5)Atrial fibrillation: Per cardiology, two brief episodes of afib noted 05/19 and . Continue amiodarone, Toprol-XL. Warfarin resumed 05/30; heparin drip as bridge--to stop when INR >1.9, daily pt/inr Spoke to cardiology and will start on started since patient claims for BiV pacer/defibrillator placement possible Monday or Monday Continue to hold warfarin-anticipate procedure Son's Grey was informed yesterday and agreed with the plan Started on intravenous heparin and has been continued-which are on hold due to hematuria We will try to resume aspirin and heparin this afternoon if hemoglobin remains stable Hematuria Likely secondary to catheter induced trauma Will DC Anthony catheter and observe for now We will check CBC around 5 PM and if the hemoglobin remains stable will start intravenous heparin and aspirin as the patient is a very high risk of clot formation (6) Pain of left heel: Recent thrombectomy of his left lower extremity in Mar 2021 after an NSTEMI and bilateral thoracentesis. He is subsequently developed a pressure ulcer that was painful on the left heel. Vascular evaluated and no further interventions needed. Cont medical management of peripheral vascular disease. Stable (7) Aortic stenosis: (8) Elevated transaminase level: Likely secondary to congestive hepatopathy, right upper quadrant ultrasound is within normal limits. This is improved and atorvastatin was restarted. (9) Anemia in CKD (chronic kidney disease): Continues on Procrit as outpatient. Received 1 unit PRBC during the hospital course Hemoglobin today 8.6 Continue monitor H&H (10) UTI (urinary tract infection): 05/20 urine culture positive for E. coli sensitive to cefepime and ceftriaxone. 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 Denies any cardiac symptoms were any shortness of breath at rest He has been waiting to have ICD implanted on fifth of this month Review of Systems Review of Systems: All systems reviewed and are unremarkable except as noted below Ear, Nose, Mouth, Throat: Left ear fullness Physical Exam Physical Exam: Lying in bed comfortably Constitutional: well developed, well nourished and + obese; not ill appearing Eyes: PERRL, conjunctivae normal, anicteric sclerae ENMT: external ear and nose normal, oropharynx normal Neck: trachea midline, no thyromegaly Respiratory: no respiratory distress Auscultation: + diminished lung sounds and + crackles (Minimal crackles at the bases) Gastrointestinal (Abdomen): Inspection/Auscultation: normal bowel sounds; abdomen not distended Percussion/Palpation: abdomen soft; abdomen nontender Musculoskeletal: No acute arthritis in any joint Neurologic: Alert, awake and oriented x3. Generally weak Results & Data Results & Data ([facility]) Vital Signs (Past 12 Hours) Vital Signs Temp Pulse Pulse Resp BP BP Pulse Ox 06/14/21 15:52 36.5 C 71 19 93/58 L 93 06/14/21 11:19 36.3 C L 57 L 18 89/57 L 97 06/14/21 09:37 65 06/14/21 07:06 36.4 C L 67 18 102/65 95 Laboratory Results Short CBC 06/14/21 06/14/21 Range/Units 03:58 10:03 WBC 6.10 (4.8-10.8) K/uL Hgb 8.7 L 8.8 L (14.0-18.0) g/dL Hct 27.1 L 26.6 L (42-52) % Plt Count 319 (130-400) K/uL BMP 06/14/21 03:58 Sodium 139 Potassium 3.6 Chloride 101 Carbon Dioxide 29 BUN 76 H Creatinine 2.25 H Glucose 99 Calcium 8.7 Urine 06/14/21 Range/Units 05:02 Urine Color Red Urine Appearance Cloudy A (Clear) Urine pH (4.5-7.5) Ur Specific [place] 1.012 (1.000-1.030) Urine Protein (Negative) Urine Glucose (UA) (Negative) Medications Administered Current Inpatient Medications Atorvastatin Calcium (Atorvastatin 40 Mg Tab) 40 mg PO QAM ABAD Stop: 06/20/21 08:59 Last Admin: 06/14/21 07:35 Dose: 40 mg Documented by: Carbamide Peroxide (Carbamide Peroxide 6.5% 15 Ml Btl) 2 - 3 drops OT BID ABAD Stop: 06/18/21 20:59 Gabapentin (Gabapentin 100 Mg Cap) 100 mg PO 1700 PRN PRN Reason: neuropathy pain Stop: 07/06/21 16:59 Last Admin: 06/14/21 07:34 Dose: 100 mg Documented by: Heparin Sodium/Dextrose (Heparin Sodium/Dextrose) 25,000 units in 500 mls @ 0 mls/hr IV .Q0M ABAD; Protocol Stop: 07/11/21 18:44 Last Titration: 06/14/21 03:39 Dose: 0 units/hr, 0 mls/hr Documented by: Ipratropium [place]de (Ipratropium [place] Neb Soln 0.02% 2.5 Ml Vial) 0.5 mg INH Q6R PRN PRN Reason: Shortness Of Breath Or Wheezing Stop: 07/08/21 13:59 Levalbuterol HCl (Levalbuterol 1.25mg/0.5ml Neb) 1.25 mg INH Q6R PRN PRN Reason: Shortness Of Breath Or Wheezing Stop: 07/08/21 13:52 Lorazepam (Lorazepam 0.5 Mg Tab) 0.5 mg PO HS PRN PRN Reason: Insomnia Stop: 06/16/21 03:00 Last Admin: 06/11/21 23:53 Dose: 0.5 mg Documented by: Metoprolol Succinate (Metoprolol Succ 25mg Ext Rel Tab) 12.5 mg PO PM [facility] Stop: 06/29/21 20:59 Last Admin: 06/13/21 21:11 Dose: 12.5 mg Documented by: Polyethylene Glycol (Polyethylene (Miralax) 17 Gm Pack) 17 gm PO DAILY PRN PRN Reason: Constipation Stop: 06/15/21 20:48 Last Admin: 06/13/21 02:27 Dose: 17 gm Documented by: Potassium Chloride (Potassium Chloride Crtab 20 Meq Tabcr) 40 meq PO DAILY [facility] Stop: 07/09/21 08:59 Last Admin: 06/14/21 07:34 Dose: 40 meq Documented by: Senna/Docusate Sodium (Docusate Sodium/Senna 50/8.6mg Tab) 1 tab PO HS [facility] Stop: 06/16/21 20:59 Last Admin: 06/13/21 21:10 Dose: 1 tab Documented by: Torsemide (Torsemide 10 Mg Tab) 40 mg PO QAM [facility] Stop: 07/08/21 10:59 Last Admin: 01/03/22 07:35 Dose: 40 mg Documented by:
[2021-06-14 17:52] LABS: Hematocrit (blood only) 27.4 % (42-52); Hemoglobin 8.9 g/dL (14.0-18.0); Mean Corpuscular Hemoglobin 37.1 pg (25-34); Mean Corpuscular Hgb Conc 32.5 g/dL (32-36); Mean Corpuscular Volume 114.2 fL (80-100); Mean Platelet Volume 9.7 fL (7.4-10.4); Platelet Count 355 K/uL (130-400); RDW Coefficient of Variation 23.3 % (11.5-14.5); RDW Standard Deviation 94.3 fL (36.4-46.3); White Blood Count 7.91 K/uL (4.8-10.8)
[2021-06-14 19:12] LABS: Anisocytosis Present; Basophils # (auto) 0.03 K/uL (0-0.2); Basophils % (auto) 0.4 %; Eosinophils # (auto) 0.12 K/uL (0-0.5); Eosinophils % (auto) 1.5 %; Immature Granulocytes # (auto) 0.01 K/uL (0.00-0.02); Immature Granulocytes % (auto) 0.1 %; Lymphocytes # (auto) 4.47 K/uL (1.2-3.4); Lymphocytes % (auto) 56.5 %; Monocytes # (auto) 0.57 K/uL (0.11-0.59); Monocytes % (auto) 7.2 %; Neutrophils # (auto) 2.71 K/uL (1.4-6.5); Neutrophils % (auto) 34.3 %
[2021-06-14] MEDS: ASPIRIN 81 MG ECTAB PO SCH (20:20)
[2021-06-14] MEDS: METOPROLOL SUCC 25MG EXT REL TAB PO SCH (20:21)
[2021-06-14] MEDS: DOCUSATE SODIUM/SENNA 50/8.6MG TAB PO SCH (20:21)
[2021-06-14] MEDS: CARBAMIDE PEROXIDE 6.5% 15 ML BTL OT SCH (20:49)
[2021-06-14 20:50] LABS: Partial Thromboplastin Ratio 1.2; Partial Thromboplastin Time 31.9 Seconds (21.0-31.0)
[2021-06-14] MEDS: HEPARIN SODIUM/DEXTROSE 25,000 UNITS/500 ML BAG IV SCH (21:15)
[2021-06-15 04:12] LABS: BUN Creatinine Ratio 31.9 (10-20); Creatinine Clr Calc Pharmacy 23.9 ml/min; Est GFR (African American) 29.3 ml/min; Est GFR (Non-African American) 25.3 ml/min; Magnesium 2.5 mg/dl (1.8-2.4); Phosphorus 4.2 mg/dl (2.5-4.9); Potassium 3.8 mmol/L (3.5-5.1)
[2021-06-15 04:20] LABS: Partial Thromboplastin Ratio 3.9
[2021-06-15 04:30] LABS: Partial Thromboplastin Time 102.5 Seconds (21.0-31.0)
[2021-06-15] MEDS ORDERED: VANCOMYCIN HCL 1000MG/20ML VIAL ONE (07:37)
[2021-06-15] MEDS ORDERED: BUPIVACAINE 0.25% 30 ML VIAL ONE (07:37)
[2021-06-15] MEDS ORDERED: MIDAZOLAM HCL 5 MG/ML 1 ML VIAL ONE (07:37)
[2021-06-15] MEDS ORDERED: WATER, STERILE FOR INJ 10 ML VIAL ONE (07:37)
[2021-06-15] MEDS ORDERED: fentaNYL citrate 100 MCG/2 ML VIAL ONE (07:37)
[2021-06-15] MEDS ORDERED: LIDOCAINE 1% LOCAL 20 ML VIAL ONE (07:37)
--- NOTE | 2021-06-15 07:59 | History & Physical Bridge Note ---
Date of Service June 15, 2021 History & Physical Bridge Note I have examined the patient, reviewed the History & Physical and in the interval since the performance of the History & Physical I have noted the following changes of clinical significance: pt with NICM, LBBB and chronic heart failure NYHA Class III; pt is for a BiV ICD. Discussed the procedure and potential risks with the patient. He expressed an understanding and agreed to proceed; consents signed.
--- NOTE | 2021-06-15 08:00 | Pre Anesthesia Assessment ---
Date of Service June 15, 2021 Pre Sedation Assessment Vital Signs Temp Pulse Pulse Resp BP BP Pulse Ox 06/15/21 07:55 72 06/15/21 04:06 36.5 C 68 18 102/63 97 06/14/21 23:17 36.4 C L 73 18 94/54 L 90 06/14/21 22:20 78 06/14/21 19:11 36.4 C L 80 18 109/69 90 06/14/21 15:52 36.5 C 71 19 93/58 L 93 06/14/21 11:19 36.3 C L 57 L 18 89/57 L 97 06/14/21 09:37 65 Cardiovascular RRR, no murmur, no edema Respiratory normal respiratory effort, lungs clear to auscultation Pre-Sedation Airway Assessment Smoking Status: Former smoker Oral Cavity: + Dental Abnormalities Mallampati Class: III ASA: ASA3 NPO Status Date of Last Intake of Fluids: 06/14/21 Date of Last Intake of Solid Food: 06/14/21 Procedure Planning Contraindications for Sedation: none Current Medications Reviewed: Yes Notes The planned sedation has been discussed with the patient. Informed Consent was obtained. I have identified the patient, determined the appropriateness of sedation and have assessed the patient immediately prior to the procedure. All medicine(s) and interventions are by my order.
--- NOTE | 2021-06-15 10:11 | Post Anesthesia Assessment ---
Date of Service June 15, 2021 Post Sedation Assessment Vital Signs Temp Pulse Pulse Pulse Resp BP BP 06/15/21 08:01 45 L 20 99/56 L 06/15/21 07:55 72 06/15/21 04:06 36.5 C 68 18 102/63 06/14/21 23:17 36.4 C L 73 18 94/54 L 06/14/21 22:20 78 06/14/21 19:11 36.4 C L 80 18 109/69 06/14/21 15:52 36.5 C 71 19 93/58 L 06/14/21 11:19 36.3 C L 57 L 18 89/57 L Pulse Ox 06/15/21 08:01 96 06/15/21 07:55 06/15/21 04:06 97 06/14/21 23:17 90 06/14/21 22:20 06/14/21 19:11 90 06/14/21 15:52 93 06/14/21 11:19 97 Recovery Score Activity: Moves 4 extremities Respiration: Deep Breath/Cough Circulation: +/-20% PreAnes Value Consciousness: Fully Awake Oxygen Saturation: > 92% On Room Air Discharge Sedation Level of Care: Fast Track Phase II Post Sedation Plan On clinical assessment, the patient appears to have tolerated the sedation without complications. Patient is recovering as anticipated. Patient will continue to be monitored by nursing and may be discharged when sedation discharge criteria are met per below protocol. Upon Completions of procedure up to 15 minutes continue every 5 minute vital signs and the P.A.R. score; then discharge to a Phase I or Fast Track to Phase II per the following guidelines: * Discharge Patient to appropriate Phase II area if PAR is 8 or greater or return to pre- procedure baseline. The post - procedure orders will be as directed. * If PAR score is less than 8 or not return to pre-procedure baseline then patient will follow Phase I monitoring till PAR is reached for Phase II. The Phase I may be done in procedure room or may call to secure a Phase I area. * If naloxone or flumazenil are used for reversal, hold in Phase I for continued monitoring from when last reversal dose was given for a minimum of 60 minutes or longer pending the nurse and/or physician discretion of patient condition before discharge to Phase II. Please call the Sedation Physician to re-evaluate and complete post-note for discharge to Phase II area. Do NOT discharge from procedure sedation or Phase 1 until post- sedation evaluation note is complete by procedure /sedation MD Sedation Discharge Instructions to be given to the patient at discharge to home.
--- NOTE | 2021-06-15 10:13 | Operative Report ---
Post Operative Report Pre & Post Diagnosis Pre: ICM, LBBB, CHF NYHA Class III Operation Date: 06/15/21 07:57 <No data on this case meets the specified criteria> I identified the patient and participated in the time-out.: Yes Procedure BiV ICD Operation Date: 06/15/21 07:57 <No data on this case meets the specified criteria> Surgeon Marita Ojeda, DO Under Baster none Estimated Blood Loss 25 Findings Consistent with Post-Op Diagnosis Specimens none Description of Procedure see official report I attest to the content of the Intraoperative Record and any orders documented therein. Any exceptions are noted below.
[2021-06-15] MEDS: HEPARIN SODIUM/DEXTROSE 25,000 UNITS/500 ML BAG IV SCH (11:21)
[2021-06-15] MEDS: ATORVASTATIN 40 MG TAB PO SCH (11:23)
[2021-06-15] MEDS: POTASSIUM CHLORIDE CRTAB 20 MEQ TABCR PO SCH (11:24)
[2021-06-15] MEDS: TORSEMIDE 10 MG TAB PO SCH (11:24)
[2021-06-15] MEDS: ASPIRIN 81 MG ECTAB PO SCH (11:25)
[2021-06-15] MEDS: CARBAMIDE PEROXIDE 6.5% 15 ML BTL OT SCH ×2 (11:26→20:29)
--- NOTE | 2021-06-15 11:32 | Cardiology Progress Note ---
Date of Service June 15, 2021 Assessment & Plan (1) Cardiomyopathy: (2) LBBB (left bundle branch block): Plan: There was a cancellation today, allowing patient's procedure to be performed today instead of tomorrow and therefore he is now s/p biventricular ICD. In effort to reduced risk of pocket hematoma, heparin bridge discontinued. Avoid DVT prophylaxis dose of SQ heparin or LMWH as well. Continue ASA 81 mg given h/o CAD. Start coumadin, 2.5 mg daily today, allow INR to come up without bridge, goal 2- 3. Continue metoprolol succinate 12.5 mg daily for now, may be able to titrate up now that device is in place, however, dose still limited by hypotension. No ACEI / ARB or Enstresto due to renal insufficiency. BP to low to allow nitrates / hydralazine for afterload. Continue torsemide, KCl, atorvastatin. Admission and Anticipated Discharge Date Admission Date: May 14, 2021 Subjective Patient seen in cardiac sugar laboratory assistant recovery area post implantation of biventricular ICD. Case discussed with Dr Ojeda at bedside. Patient recovering well from sedation. Results & Data ([facility]) Vital Signs (Past 12 Hours) Vital Signs Temp Pulse Pulse Pulse Resp BP BP 06/15/21 10:55 66 16 101/56 L 06/15/21 10:40 68 16 116/58 L 06/15/21 10:23 65 16 107/76 06/15/21 08:01 45 L 20 99/56 L 06/15/21 07:55 72 06/15/21 04:06 36.5 C 68 18 102/63 Pulse Ox 06/15/21 10:55 95 06/15/21 10:40 98 06/15/21 10:23 92 06/15/21 08:01 96 06/15/21 07:55 06/15/21 04:06 97
--- NOTE | 2021-06-15 13:02 | XRay Report ---
XR chest 1V portable CLINICAL HISTORY: s/p biv icd TECHNIQUE: Single frontal radiograph of the chest was obtained. Comparison: Comparison is made to chest one view 06/08/2021 FINDINGS: Interval placement of biventricular pacemaker defibrillator. The cardiomediastinal silhouette is obsc ured. Right greater than left airspace opacities are seen. Moderate right and possible small left ple ural effusion. IMPRESSION: Status post placement of biventricular pacemaker defibrillator. No evidence of pneumothorax. Moderate right and possible small left pleural effusion with underlying airspace opacities which may represen t atelectasis, pneumonia, and/or aspiration. ACT 112: Negative or not required by law. Electronically signed by: Luciano Monterroso M.D. 06/15/2021 1:00 PM
--- NOTE | 2021-06-15 14:12 | Electrocardiogram Report ---
Test Reason : Blood Pressure : / mmHG Vent. Rate : 060 BPM Atrial Rate : 060 BPM P-R Int : 188 ms QRS Dur : 134 ms QT Int : 650 ms P-R-T Axes : 000 045 255 degrees QTc Int : 650 ms AV dual-paced rhythm Abnormal ECG When compared with ECG of 08-JUN-2021 14:14, Electronic ventricular pacemaker has replaced Sinus rhythm Vent. rate has decreased BY 35 BPM Confirmed by Segundo Page ([id number]) on 06/15/2021 2:11:57 PM Referred By: Ros Maynard Confirmed By:Segundo Page
[2021-06-15] MEDS: WARFARIN SOD 2.5 MG TAB PO SCH (15:52)
--- NOTE | 2021-06-15 15:58 | Hospitalist Progress Note ---
Date of Service June 15, 2021 Assessment & Plan (1) CHF exacerbation: Plan: (1) Acute on chronic HFrEF (heart failure with reduced ejection fraction): (2) Ischemic cardiomyopathy: (3) Pleural effusion: (1) Acute on chronic HFrEF (heart failure with reduced ejection fraction): (1) Pleural effusion: R (1878 cc)>L (642 cc),2/2 to above, s/p Rt thoracentesis 05/30 (2.2L out), #Lt thora 05/31 w/ 1L serous fluid out. Has underlying ischemic cardiomyopathy with an EF 25% and is wearing a life vest which was given to him on hospital discharge 03/20/21. IV diuretics per nephrology with continued dyspnea on exertion. FR 1.5 L daily. Strict Is and Os. Anthony not feasible d/t recent UTI Continue Toprol XL and aspirin. RYLEE/ARB contraindicated in renal disease. Atorvastatin initially held in LFT elevation 2/2 congestive hepatopathy but this has been restarted. Defer diuretic titration to Cardiology and Nephrology teams -->being optimized, pt was hypotensive after midday dose of diuretic Continue Torsemide 40mg daily Pulmonary not recommending Pleurex catheter placement due to risk of infection Plan for BiV pacer/defibrillator placement possible next week N.p.o. after midnight on 06/15/2021 for possible BiV pacer/defibrillator on 06/16/2021 Status post ICD placement on 06/15/2021 Remains stable following the procedure (2) Acute kidney injury superimposed on chronic kidney disease: Recent increased diuretic use as outpatient prior to hospitalization. Possible etiology also cardiorenal syndrome per nephro. Creatinine stable at 2.37, baseline creat 2.5. No HD per Nephro Continue torsemide 40 mg daily as per nephrology Continue monitor BMP while on diuresis (3)Ischemic cardiomyopathy: Presumed per cardiology -> Lexiscan nuclear stress test demonstrated myocardial scar without superimposed ischemia, no benefit to cardiac cath at this time. Will need OP EP consultation (consideration for WEATHERIZATION SPECIALIST capable ICD after 3 months of evidence-based medical therapy (approx 06/26/21). plan for BiV pacer/defibrillator placement as inpatient possible this week As above (4) Ventricular tachycardia: Maintains life vest. After foot and urine infections are cleared up, plan will be for outpatient EP consultation for consideration of WEATHERIZATION SPECIALIST capable ICD. (5)Atrial fibrillation: Per cardiology, two brief episodes of afib noted 05/19 and . Continue amiodarone, Toprol-XL. Warfarin resumed 05/30; heparin drip as bridge--to stop when INR >1.9, daily pt/inr Spoke to cardiology and will start on started since patient claims for BiV pacer/defibrillator placement possible Monday or Monday Continue to hold warfarin-anticipate procedure Son's Grey was informed yesterday and agreed with the plan Started on intravenous heparin and has been continued-which are on hold due to hematuria We will try to resume aspirin and heparin this afternoon if hemoglobin remains stable Heparin has been on hold to decrease hemorrhage from the procedure Coumadin has been started Hematuria Likely secondary to catheter induced trauma Will DC Anthony catheter and observe for now We will check CBC around 5 PM and if the hemoglobin remains stable will start intravenous heparin and aspirin as the patient is a very high risk of clot formation No more hematuria (6) Pain of left heel: Recent thrombectomy of his left lower extremity in Mar 2021 after an NSTEMI and bilateral thoracentesis. He is subsequently developed a pressure ulcer that was painful on the left heel. Vascular evaluated and no further interventions needed. Cont medical management of peripheral vascular disease. Stable (7) Aortic stenosis: (8) Elevated transaminase level: Likely secondary to congestive hepatopathy, right upper quadrant ultrasound is within normal limits. This is improved and atorvastatin was restarted. (9) Anemia in CKD (chronic kidney disease): Continues on Procrit as outpatient. Received 1 unit PRBC during the hospital course Hemoglobin today 8.6 Continue monitor H&H (10) UTI (urinary tract infection): 05/20 urine culture positive for E. coli sensitive to cefepime and ceftriaxone. 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 Denies any cardiac symptoms were any shortness of breath at rest He has been waiting to have ICD implanted on fifth of this month 06/15/2021 The patient was seen and examined in telemetry unit He is status post ICD placement Remains very drowsy but denies any significant symptoms Review of Systems Review of Systems: All systems reviewed and are unremarkable except as noted below Physical Exam Physical Exam: Lying in bed comfortably with drowsiness secondary to anesthetics Constitutional: well developed, well nourished and + obese; not ill appearing Eyes: PERRL, conjunctivae normal, anicteric sclerae ENMT: external ear and nose normal, oropharynx normal Neck: trachea midline, no thyromegaly Respiratory: no respiratory distress Auscultation: + diminished lung sounds and + crackles (Minimal crackles at the bases) Cardiovascular: Rate/Rhythm: regular rate and regular rhythm; not tachycardic Heart Sounds: normal S1, normal S2 and + murmur (2/6 ESM over precordium) Extremities: no edema Gastrointestinal (Abdomen): Inspection/Auscultation: normal bowel sounds; abdomen not distended Percussion/Palpation: abdomen soft; abdomen nontender Musculoskeletal: No acute arthritis in any joint Neurologic: Alert and awake. Very drowsy and weak Results & Data Results & Data ([facility]) Vital Signs (Past 12 Hours) Vital Signs Temp Pulse Pulse Pulse Resp BP BP 06/15/21 15:37 36.5 C 60 16 95/56 L 06/15/21 15:02 62 06/15/21 11:42 36 C L 63 16 109/67 06/15/21 10:55 66 16 101/56 L 06/15/21 10:40 68 16 116/58 L 06/15/21 10:23 65 16 107/76 06/15/21 08:01 45 L 20 99/56 L 06/15/21 07:55 72 06/15/21 04:06 36.5 C 68 18 102/63 Pulse Ox 06/15/21 15:37 91 06/15/21 15:02 06/15/21 11:42 94 06/15/21 10:55 95 06/15/21 10:40 98 06/15/21 10:23 92 06/15/21 08:01 96 06/15/21 07:55 06/15/21 04:06 97 Laboratory Results Short CBC 06/14/21 Range/Units 17:28 WBC 7.91 (4.8-10.8) K/uL Hgb 8.9 L (14.0-18.0) g/dL Hct 27.4 L (42-52) % Plt Count 355 (130-400) K/uL [facility] 06/15/21 03:28 Sodium 138 Potassium 3.8 Chloride 102 Carbon Dioxide 29 BUN 75 H Creatinine 2.34 H Glucose 113 H Calcium 9.0 Medications Administered Current Inpatient Medications Aspirin (Aspirin 81 Mg Ectab) 81 mg PO QAM [facility] Stop: 07/14/21 17:59 Last Admin: 06/15/21 11:25 Dose: 81 mg Documented by: Atorvastatin Calcium (Atorvastatin 40 Mg Tab) 40 mg PO QAM [facility] Stop: 06/20/21 08:59 Last Admin: 06/15/21 11:23 Dose: 40 mg Documented by: Carbamide Peroxide (Carbamide Peroxide 6.5% 15 Ml Btl) 2 - 3 drops OT BID ABAD Stop: 06/18/21 20:59 Last Admin: 06/15/21 11:26 Dose: 2 drops Documented by: Gabapentin (Gabapentin 100 Mg Cap) 100 mg PO 1700 PRN PRN Reason: neuropathy pain Stop: 07/06/21 16:59 Last Admin: 06/14/21 07:34 Dose: 100 mg Documented by: Ipratropium [place] (Ipratropium [place] Neb Soln 0.02% 2.5 Ml Vial) 0.5 mg INH Q6R PRN PRN Reason: Shortness Of Breath Or Wheezing Stop: 07/08/21 13:59 Levalbuterol HCl (Levalbuterol 1.25mg/0.5ml Neb) 1.25 mg INH Q6R PRN PRN Reason: Shortness Of Breath Or Wheezing Stop: 07/08/21 13:52 Lorazepam (Lorazepam 0.5 Mg Tab) 0.5 mg PO HS PRN PRN Reason: Insomnia Stop: 06/16/21 03:00 Last Admin: 06/11/21 23:53 Dose: 0.5 mg Documented by: Metoprolol Succinate (Metoprolol Succ 25mg Ext Rel Tab) 12.5 mg PO PM [facility]AD Stop: 06/29/21 20:59 Last Admin: 06/14/21 20:21 Dose: 12.5 mg Documented by: Polyethylene Glycol (Polyethylene (Miralax) 17 Gm Pack) 17 gm PO DAILY PRN PRN Reason: Constipation Stop: 06/15/21 20:48 Last Admin: 06/13/21 02:27 Dose: 17 gm Documented by: Potassium Chloride (Potassium Chloride Crtab 20 Meq Tabcr) 40 meq PO DAILY [facility] Stop: 07/09/21 08:59 Last Admin: 06/15/21 11:24 Dose: 40 meq Documented by: Senna/Docusate Sodium (Docusate Sodium/Senna 50/8.6mg Tab) 1 tab PO HS [facility] Stop: 06/16/21 20:59 Last Admin: 06/14/21 20:21 Dose: 1 tab Documented by: Torsemide (Torsemide 10 Mg Tab) 40 mg PO QAM [facility] Stop: 07/08/21 10:59 Last Admin: 06/15/21 11:24 Dose: 40 mg Documented by: Warfarin Sodium (Warfarin Sod 2.5 Mg Tab) 2.5 mg PO DAILY@1600 [facility] Stop: 07/15/21 15:59 Last Admin: 06/15/21 15:52 Dose: 2.5 mg Documented by:
--- NOTE | 2021-06-15 17:50 | Nephrology Progress Note ---
Date of Service June 15, 2021 Assessment & Plan (1) CKD (chronic kidney disease) stage 4, GFR 15-29 ml/min: Plan: at baseline currently and for several days; has had this admission recurrent acute kidney injury on CKD4 due to cardiorenal syndrome. Baseline creatinine of 2.5. Admission creatinine of 3.8 and plateau'd at about 2.6 for several days; creatinine down to 2.3. Potassium and other chemistries ok - Continue with torsemide 40 daily. - replace potassium as needed; continue 40 mEq daily K dose -cont 1.5L FR; have stopped dialysis diet -Monitor input output - needs I/O best we can -Daily BMP or qod if he is on stable diuretic/K dosing (2) Acute decompensated heart failure: Plan: Patient with a low EF of 25% and pulmonary hypertension. s/p pacer placement 06/15/21, after appropriate medical tx window/optimization -diuretics as above Continue fluid limit 1.5 L daily (in general he takes in less than 1 L); continue less than 2 g daily sodium diet (3) Anemia due to chronic disease treated with erythropoietin: Plan: Patient received Procrit 20k units. We will continue to monitor and give Procrit as needed Admission and Anticipated Discharge Date Admission Date: May 14, 2021 Subjective seen about 1150 after his pacemaker placement today; very sleepy after his procedure; lunch untouched, no sob Review of Systems Review of Systems: Unobtainable due to reduced consciousness (pt still fatigued) Physical Exam Constitutional: well developed and well nourished; no acute distress Eyes: EOM intact bilaterally ENMT: Ears: no external ear abnormality Nose: no external nose abnormality Mouth: + dry oral mucous membranes Neck: no nuchal rigidity Respiratory: normal respiratory effort; no respiratory distress Auscultat ion: + diminished lung sounds Cardiovascular: Rate/Rhythm: regular rate and regular rhythm Extremities: no edema Gastrointestinal (Abdomen): Inspection/Auscultation: normal bowel sounds Percussion/Palpation: abdomen soft; abdomen nontender Musculoskeletal: Extremities: strength 5/5 throughout Skin: no rashes, warm and dry Psychiatric: Orientation: alert and oriented x 3 Affect: + anxious affect Insight: + limited insight Judgement: + limited judgement Results & Data ([facility]) Vital Signs (Past 12 Hours) Vital Signs Temp Pulse Pulse Pulse Resp BP BP 06/15/21 15:37 36.5 C 60 16 95/56 L 06/15/21 15:02 62 06/15/21 11:42 36 C L 63 16 109/67 06/15/21 10:55 66 16 101/56 L 06/15/21 10:40 68 16 116/58 L 06/15/21 10:23 65 16 107/76 06/15/21 08:01 45 L 20 99/56 L 06/15/21 07:55 72 Pulse Ox 06/15/21 15:37 91 06/15/21 15:02 06/15/21 11:42 94 06/15/21 10:55 95 06/15/21 10:40 98 06/15/21 10:23 92 06/15/21 08:01 96 06/15/21 07:55 Laboratory Results 06/14/21 17:28 06/15/21 03:28
[2021-06-15] MEDS: METOPROLOL SUCC 25MG EXT REL TAB PO SCH (20:26)
[2021-06-15] MEDS: DOCUSATE SODIUM/SENNA 50/8.6MG TAB PO SCH (20:29)
[2021-06-16 06:28] LABS: Hematocrit (blood only) 26.5 % (42-52); Hemoglobin 8.7 g/dL (14.0-18.0); Mean Corpuscular Hemoglobin 37.8 pg (25-34); Mean Corpuscular Hgb Conc 32.8 g/dL (32-36); Mean Corpuscular Volume 115.2 fL (80-100); Mean Platelet Volume 9.3 fL (7.4-10.4); Platelet Count 269 K/uL (130-400); RDW Coefficient of Variation 23.2 % (11.5-14.5); RDW Standard Deviation 96.4 fL (36.4-46.3); White Blood Count 6.04 K/uL (4.8-10.8)
[2021-06-16 06:40] LABS: INR 1.4 (0.9-1.1); Prothrombin Time 13.5 Seconds (9.0-12.0)
[2021-06-16 06:56] LABS: Anisocytosis Present; Basophils # (auto) 0.02 K/uL (0-0.2); Basophils % (auto) 0.3 %; Eosinophils # (auto) 0.07 K/uL (0-0.5); Eosinophils % (auto) 1.2 %; Immature Granulocytes # (auto) 0.01 K/uL (0.00-0.02); Immature Granulocytes % (auto) 0.2 %; Lymphocytes # (auto) 3.52 K/uL (1.2-3.4); Lymphocytes % (auto) 58.3 %; Macrocytosis Present; Monocytes # (auto) 0.58 K/uL (0.11-0.59); Monocytes % (auto) 9.6 %; Neutrophils # (auto) 1.84 K/uL (1.4-6.5); Neutrophils % (auto) 30.4 %; Ovalocytes 1+; Tear Drop Cells 1+
[2021-06-16 07:02] LABS: BUN Creatinine Ratio 31.1 (10-20); Creatinine Clr Calc Pharmacy 25.6 ml/min; Est GFR (African American) 31.8 ml/min; Est GFR (Non-African American) 27.4 ml/min; Potassium 4.3 mmol/L (3.5-5.1)
--- NOTE | 2021-06-16 08:47 | Nephrology Progress Note ---
Date of Service June 16, 2021 Assessment & Plan (1) CKD (chronic kidney disease) stage 4, GFR 15-29 ml/min: Plan: at baseline currently and for several days; has had this admission recurrent acute kidney injury on CKD4 due to cardiorenal syndrome. Baseline creatinine of 2.5. Admission creatinine of 3.8 and plateau'd at about 2.6 for several days; creatinine down to 2.2 > ? if will improve after pacer. Potassium and other chemistries ok - Continue with torsemide 40 daily. - replace potassium as needed; continue 40 mEq daily K dose for now -cont 1.5L FR; have stopped dialysis diet -Monitor input output - needs I/O best we can -Daily BMP or qod if he is on stable diuretic/K dosing (2) Acute decompensated heart failure: Plan: Patient with a low EF of 25% and pulmonary hypertension. s/p pacer placement 06/15/21, after appropriate medical tx window/optimization -diuretics as above Continue fluid limit 1.5 L daily (in general he takes in less than 1 L); continue less than 2 g daily sodium diet (3) Anemia due to chronic disease treated with erythropoietin: Plan: Patient received Procrit 20k units on 05/26, 06/09, 06/14. We will continue to monitor and give Procrit as needed > will give another 20K units today d/t min imal response Admission and Anticipated Discharge Date Admission Date: May 14, 2021 Subjective still sore after pacer placement; sob remains and LLE sore overnight; no voiding concerns Review of Systems Review of Systems: All systems reviewed & are unremarkable except as noted in Subjective Physical Exam Constitutional: well developed and well nourished; no acute distress Eyes: EOM intact bilaterally ENMT: Ears: no external ear abnormality Nose: no external nose abnormality Mouth: + dry oral mucous membranes Neck: no nuchal rigidity Respiratory: normal respiratory effort; no respiratory distress Aus cultation: + diminished lung sounds Cardiovascular: Rate/Rhythm: regular rate and regular rhythm Extremities: no edema Gastrointestinal (Abdomen): Inspection/Auscultation: normal bowel sounds Percussion/Palpation: abdomen soft; abdomen nontender Musculoskeletal: Extremities: strength 5/5 throughout L arm in sling Skin: no rashes, warm and dry Psychiatric: Orientation: alert and oriented x 3 Affect: + anxious affect Insight: + limited insight Judgement: + limited judgement Results & Data ([facility]) Vital Signs (Past 12 Hours) Vital Signs Temp Pulse Pulse Pulse Resp BP BP 06/16/21 07:00 36.6 C 72 20 90/56 L 06/16/21 03:36 36.6 C 71 20 102/64 06/15/21 22:53 36.3 C L 71 17 95/59 L 06/15/21 22:20 69 Pulse Ox 06/16/21 07:00 93 06/16/21 03:36 95 06/15/21 22:53 95 06/15/21 22:20 Laboratory Results 06/16/21 06:09 06/16/21 06:09 Diagnostic Findings cxr 06/15 reviewed
[2021-06-16] MEDS: ATORVASTATIN 40 MG TAB PO SCH (09:34)
[2021-06-16] MEDS: ASPIRIN 81 MG ECTAB PO SCH (09:34)
[2021-06-16] MEDS: POTASSIUM CHLORIDE CRTAB 20 MEQ TABCR PO SCH (09:35)
[2021-06-16] MEDS: TORSEMIDE 10 MG TAB PO SCH (09:35)
[2021-06-16] MEDS: CARBAMIDE PEROXIDE 6.5% 15 ML BTL OT SCH ×2 (09:36→20:58)
[2021-06-16] MEDS ORDERED: EPOETIN ALFA 20,000 UNITS/ML VIAL SQ ONE (10:00)
--- NOTE | 2021-06-16 10:09 | Cardiology Progress Note ---
Date of Service June 16, 2021 Assessment & Plan (1) Cardiomyopathy: Plan: Prolonged hospital stay, hospital day 33 1. Acute on chronic heart failure with reduced ejection fraction, NYHA functional class III, presumed ischemic cardiomyopathy, nuclear perfusion study performed this admission revealing large LAD territory scar, LVEF 25% 2. Cardiorenal syndrome 3. Longstanding left bundle branch block, with progression noted this admission, QRS duration 160-170 ms, echocardiographic evidence of LV dyssynchrony 4. Baseline moderate aortic stenosis, noted at time of echocardiogram November,, at which time LVEF was normal. 5. Myelodysplastic syndrome 6. paroxysmal atrial fibrillation Plan: s/p biventricular pacemaker ICD on 06/15/21, CXR 06/15 no PTX, stable moderate R pleural effusion. Advance activity. INR 1.4 today. Continue coumadin load, without bridge therapy to reduce risk of pocket hematoma. Avoid DVT prophylaxis dose of SQ heparin or LMWH as well. Continue ASA 81 mg given h/o CAD. Continue metoprolol succinate 12.5 mg daily for now, may be able to titrate up now that device is in place, however, dose still limited by hypotension. No ACEI / ARB or Enstresto due to renal insufficiency. BP to low to allow nitrates / hydralazine for afterload. Continue torsemide, KCl, atorvastatin. Per case management notes, pt has done well with PT, tentative plan is to DC to home. Admission and Anticipated Discharge Date Admission Date: May 14, 2021 Subjective Mr Toledo is seen in cardiology follow up. No acute complaints. Telemetry reveals SR in the 60s to 70s , with biventricular pacing. Review of Systems Review of Systems: Review of Systems: See HPI for pertinent positives. All other 10 point review of systems are negative. Physical Exam Physical Exam: Temp Pulse Resp BP Pulse Ox 36.6 C 72 20 90/56 L 93 06/16/21 07:00 06/16/21 07:00 06/16/21 07:00 06/16/21 07:00 06/16/21 07:00 Constitutional: + ill appearing (no acute distress ); no acute distress Respiratory: Auscultation: + diminished lung sounds (decreased BS at the bases right worse than left ); no crackles and no wheezes Cardiovascular: Rate/Rhythm: regular rate Heart Sounds: + murmur (1/6 systolic murmur) Extremities: + edema (Edema resolved) Gastrointestinal (Abdomen): normal bowel sounds, soft, nontender, no hepatosplenomegaly Neurologic: PERRL, EOMI, accommodation nl, no face palsy, no dysarthria Results & Data ([facility]) Vital Signs (Past 12 Hours) Vital Signs Temp Pulse Pulse Pulse Resp BP BP 06/16/21 07:00 36.6 C 72 20 90/56 L 06/16/21 03:36 36.6 C 71 20 102/64 06/15/21 22:53 36.3 C L 71 17 95/59 L 06/15/21 22:20 69 Pulse Ox 06/16/21 07:00 93 06/16/21 03:36 95 06/15/21 22:53 95 06/15/21 22:20
[2021-06-16] MEDS: ACETAMINOPHEN 500 MG TAB PO PRN ×2 (10:21→22:54)
--- NOTE | 2021-06-16 12:45 | Electrocardiogram Report ---
Test Reason : Blood Pressure : / mmHG Vent. Rate : 088 BPM Atrial Rate : 088 BPM P-R Int : 178 ms QRS Dur : 134 ms QT Int : 416 ms P-R-T Axes : 047 -03 -13 degrees QTc Int : 503 ms Normal sinus rhythm Right bundle branch block Abnormal ECG When compared with ECG of 15-JUN-2021 12:20, Sinus rhythm has replaced Electronic ventricular pacemaker Confirmed by Segundo Page ([id number]) on 06/16/2021 12:44:51 PM Referred By: Ros Maynard Confirmed By:Segundo Page
--- NOTE | 2021-06-16 15:55 | Hospitalist Progress Note ---
Date of Service June 16, 2021 Assessment & Plan (1) CHF exacerbation: Plan: (1) Acute on chronic HFrEF (heart failure with reduced ejection fraction): (2) Ischemic cardiomyopathy: (3) Pleural effusion: (1) Acute on chronic HFrEF (heart failure with reduced ejection fraction): (1) Pleural effusion: R (1878 cc)>L (642 cc),2/2 to above, s/p Rt thoracentesis 05/30 (2.2L out), #Lt thora 05/31 w/ 1L serous fluid out. Has underlying ischemic cardiomyopathy with an EF 25% and is wearing a life vest which was given to him on hospital discharge 03/20/21. IV diuretics per nephrology with continued dyspnea on exertion. FR 1.5 L daily. Strict Is and Os. Anthony not feasible d/t recent UTI Continue Toprol XL and aspirin. RYLEE/ARB contraindicated in renal disease. Atorvastatin initially held in LFT elevation 2/2 congestive hepatopathy but this has been restarted. Defer diuretic titration to Cardiology and Nephrology teams -->being optimized, pt was hypotensive after midday dose of diuretic Continue Torsemide 40mg daily Pulmonary not recommending Pleurex catheter placement due to risk of infection Plan for BiV pacer/defibrillator placement possible next week N.p.o. after midnight on 06/15/2021 for possible BiV pacer/defibrillator on 06/16/2021 Status post ICD placement on 06/15/2021 Remains stable following the procedure Clinically much better today and will get PT and OT evaluation Denies any significant symptoms (2) Acute kidney injury superimposed on chronic kidney disease: Recent increased diuretic use as outpatient prior to hospitalization. Possible etiology also cardiorenal syndrome per nephro. Creatinine stable at 2.37, baseline creat 2.5. No HD per Nephro Continue torsemide 40 mg daily as per nephrology Continue monitor BMP while on diuresis Kidney function remains stable with BUN and creatinine 68/2.09 (3)Ischemic cardiomyopathy: Presumed per cardiology -> Lexiscan nuclear stress test demonstrated myocardial scar without superimposed ischemia, no benefit to cardiac cath at this time. Will need OP EP consultation (consideration for [employer] capable ICD after 3 months of evidence-based medical therapy (approx 06/26/21). plan for BiV pacer/defibrillator placement as inpatient possible this week As above (4) Ventricular tachycardia: Maintains life vest. 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 (5)Atrial fibrillation: Per cardiology, two brief episodes of afib noted 05/19 and . Continue amiodarone, Toprol-XL. Warfarin resumed 05/30; heparin drip as bridge--to stop when INR >1.9, daily pt/inr Spoke to cardiology and will start on started since patient claims for BiV pacer/defibrillator placement possible Monday or Monday Continue to hold warfarin-anticipate procedure Son's Grey was informed yesterday and agreed with the plan Started on intravenous heparin and has been continued-which are on hold due to hematuria We will try to resume aspirin and heparin this afternoon if hemoglobin remains stable Heparin has been on hold to decrease hemorrhage from the procedure Coumadin has been started Hematuria Likely secondary to catheter induced trauma Will DC Anthony catheter and observe for now We will check CBC around 5 PM and if the hemoglobin remains stable will start intravenous heparin and aspirin as the patient is a very high risk of clot formation No more hematuria (6) Pain of left heel: Recent thrombectomy of his left lower extremity in Mar 2021 after an NSTEMI and bilateral thoracentesis. He is subsequently developed a pressure ulcer that was painful on the left heel. Vascular evaluated and no further interventions needed. Cont medical management of peripheral vascular disease. Stable (7) Aortic stenosis: (8) Elevated transaminase level: Likely secondary to congestive hepatopathy, right upper quadrant ultrasound is within normal limits. This is improved and atorvastatin was restarted. (9) Anemia in CKD (chronic kidney disease): Continues on Procrit as outpatient. Received 1 unit PRBC during the hospital course Hemoglobin today 8.6 Continue monitor H&H (10) UTI (urinary tract infection): 05/20 urine culture positive for E. coli sensitive to cefepime and ceftriaxone. 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 Denies any cardiac symptoms were any shortness of breath at rest He has been waiting to have ICD implanted on fifth of this month 06/15/2021 The patient was seen and examined in telemetry unit He is status post ICD placement Remains very drowsy but denies any significant symptoms 06/16/2021 The patient was seen and examined in telemetry unit He has been doing much better following ICD implantation Generally weak but otherwise no significant symptom Review of Systems Review of Systems: All systems reviewed and are unremarkable except as noted below Ear, Nose, Mouth, Throat: Left ear fullness Physical Exam Physical Exam: Lying in bed comfortably with drowsiness secondary to anesthetics Constitutional: well developed, well nourished and + obese; not ill appearing Eyes: PERRL, conjunctivae normal, anicteric sclerae ENMT: external ear and nose normal, oropharynx normal Neck: trachea midline, no thyromegaly Respiratory: no respiratory distress Auscultation: + diminished lung sounds and + crackles (Minimal crackles at the bases) Cardiovascular: Rate/Rhythm: regular rate and regular rhythm; not tachycardic Heart Sounds: normal S1, normal S2 and + murmur (2/6 ESM over precordium) Extremities: no edema Gastrointestinal (Abdomen): Inspection/Auscultation: normal bowel sounds; abdomen not distended Percussion/Palpation: abdomen soft; abdomen nontender Musculoskeletal: Left upper extremity pain with movement likely secondary to recent ICD implantation Neurologic: Alert, awake and oriented x3. Generally weak but no focal neuro deficit Results & Data Results & Data ([facility]) Vital Signs (Past 12 Hours) Vital Signs Temp Pulse Pulse Resp BP Pulse Ox 06/16/21 11:41 36.6 C 82 18 90/62 L 93 06/16/21 07:00 36.6 C 68 72 20 90/56 L 93 Laboratory Results Short CBC 06/16/21 Range/Units 06:09 WBC 6.04 (4.8-10.8) K/uL Hgb 8.7 L (14.0-18.0) g/dL Hct 26.5 L (42-52) % Plt Count 269 (130-400) K/uL BMP 06/16/21 06:09 Sodium 140 Potassium 4.3 Chloride 105 Carbon Dioxide 28 BUN 68 H Creatinine 2.19 H Glucose 102 H Calcium 9.0 Medications Administered Current Inpatient Medications Acetaminophen (Acetaminophen 500 Mg Tab) 1,000 mg PO Q6H PRN PRN Reason: Pain Stop: 07/16/21 09:39 Last Admin: 06/16/21 10:21 Dose: 1,000 mg Documented by: Aspirin (Aspirin 81 Mg Ectab) 81 mg PO QAM ABAD Stop: 07/14/21 17:59 Last Admin: 06/16/21 09:34 Dose: 81 mg Documented by: Atorvastatin Calcium (Atorvastatin 40 Mg Tab) 40 mg PO QAM ABAD Stop: 06/20/21 08:59 Last Admin: 06/16/21 09:34 Dose: 40 mg Documented by: Carbamide Peroxide (Carbamide Peroxide 6.5% 15 Ml Btl) 2 - 3 drops OT BID ABAD Stop: 06/18/21 20:59 Last Admin: 06/16/21 09:36 Dose: 2 drops Documented by: Gabapentin (Gabapentin 100 Mg Cap) 100 mg PO 1700 PRN PRN Reason: neuropathy pain Stop: 07/06/21 16:59 Last Admin: 06/14/21 07:34 Dose: 100 mg Documented by: Ipratropium [place] (Ipratropium [place] Neb Soln 0.02% 2.5 Ml Vial) 0.5 mg INH Q6R PRN PRN Reason: Shortness Of Breath Or Wheezing Stop: 07/08/21 13:59 Levalbuterol HCl (Levalbuterol 1.25mg/0.5ml Neb) 1.25 mg INH Q6R PRN PRN Reason: Shortness Of Breath Or Wheezing Stop: 07/08/21 13:52 Metoprolol Succinate (Metoprolol Succ 25mg Ext Rel Tab) 12.5 mg PO PM ABAD Stop: 06/29/21 20:59 Last Admin: 06/15/21 20:26 Dose: Not Given Documented by: Potassium Chloride (Potassium Chloride Crtab 20 Meq Tabcr) 40 meq PO DAILY ABAD Stop: 07/09/21 08:59 Last Admin: 06/16/21 09:35 Dose: 40 meq Documented by: Senna/Docusate Sodium (Docusate Sodium/Senna 50/8.6mg Tab) 1 tab PO HS ABAD Stop: 06/16/21 20:59 Last Admin: 06/15/21 20:29 Dose: 1 tab Documented by: Torsemide (Torsemide 10 Mg Tab) 40 mg PO QAM [facility] Stop: 07/08/21 10:59 Last Admin: 06/16/21 09:35 Dose: 40 mg Documented by: Warfarin Sodium (Warfarin Sod 2.5 Mg Tab) 2.5 mg PO DAILY@1600 [facility] Stop: 07/15/21 15:59 Last Admin: 06/15/21 15:52 Dose: 2.5 mg Documented by:
[2021-06-16] MEDS: WARFARIN SOD 2.5 MG TAB PO SCH (17:07)
[2021-06-16 20:35] LABS: Appearance Urine Clear (Clear); Bacteria Urine Automated Negative (Negative); Bilirubin Urine Negative (Negative); Blood Urine Trace (Negative); Color Urine Yellow; Glucose Urine UA Negative (Negative); Ketones Urine Negative (Negative); Leukocyte Esterase Urine Negative (Negative); Nitrite Urine Negative (Negative); Protein Urine Negative (Negative); RBC Urine Automated 0-4 /hpf (0-4); Specific Gravity Urine 1.011 (1.000-1.030); Urobilinogen Urine Negative (Negative); WBC Urine Automated 0 /hpf (0-5); pH Urine 5.5 (4.5-7.5)
[2021-06-16] MEDS: METOPROLOL SUCC 25MG EXT REL TAB PO SCH (20:59)
[2021-06-16] MEDS: GABAPENTIN 100 MG CAP PO PRN (22:54)
[2021-06-16] MEDS ORDERED: ZOLPIDEM TARTRATE 5 MG TAB PO STA (23:54)
[2021-06-17 06:42] LABS: Hemoglobin 8.2 g/dL (14.0-18.0); Mean Corpuscular Hgb Conc 31.5 g/dL (32-36); Mean Platelet Volume 9.3 fL (7.4-10.4); Platelet Count 294 K/uL (130-400); RDW Coefficient of Variation 22.7 % (11.5-14.5); RDW Standard Deviation 93.8 fL (36.4-46.3); Red Blood Count 2.28 M/uL (4.7-6.1); White Blood Count 6.61 K/uL (4.8-10.8)
[2021-06-17 07:10] LABS: BUN Creatinine Ratio 30.3 (10-20); Calcium 8.7 mg/dl (8.5-10.1); Creatinine Clr Calc Pharmacy 23.1 ml/min; Est GFR (Non-African American) 24.2 ml/min; Potassium 4.3 mmol/L (3.5-5.1)
[2021-06-17 07:31] LABS: Basophils # (auto) 0.03 K/uL (0-0.2); Basophils % (auto) 0.5 %; Eosinophils # (auto) 0.19 K/uL (0-0.5); Eosinophils % (auto) 2.9 %; Immature Granulocytes # (auto) 0.02 K/uL (0.00-0.02); Immature Granulocytes % (auto) 0.3 %; Lymphocytes # (auto) 4.14 K/uL (1.2-3.4); Lymphocytes % (auto) 62.6 %; Monocytes # (auto) 0.48 K/uL (0.11-0.59); Monocytes % (auto) 7.3 %; Neutrophils # (auto) 1.75 K/uL (1.4-6.5); Neutrophils % (auto) 26.4 %; Ovalocytes 1+; Tear Drop Cells 1+
[2021-06-17] MEDS: GABAPENTIN 100 MG CAP PO PRN (08:41)
[2021-06-17] MEDS: POTASSIUM CHLORIDE CRTAB 20 MEQ TABCR PO SCH (08:41)
[2021-06-17] MEDS: TORSEMIDE 10 MG TAB PO SCH (08:42)
[2021-06-17] MEDS: ATORVASTATIN 40 MG TAB PO SCH (08:42)
[2021-06-17] MEDS: CARBAMIDE PEROXIDE 6.5% 15 ML BTL OT SCH ×2 (08:43→20:04)
--- NOTE | 2021-06-17 10:43 | Cardiology Progress Note ---
Date of Service June 17, 2021 Assessment & Plan (1) Cardiomyopathy: Plan: Prolonged hospital stay, hospital day 34 1. Acute on chronic heart failure with reduced ejection fraction, NYHA functional class III, presumed ischemic cardiomyopathy, nuclear perfusion study performed this admission revealing large LAD territory scar, LVEF 25% 2. Cardiorenal syndrome 3. Longstanding left bundle branch block, with progression noted this admission, QRS duration 160-170 ms, echocardiographic evidence of LV dyssynchrony 4. Baseline moderate aortic stenosis, noted at time of echocardiogram November,, at which time LVEF was normal. 5. Myelodysplastic syndrome 6. paroxysmal atrial fibrillation Plan: s/p biventricular pacemaker ICD on 06/15/21, CXR 06/15 no PTX, stable moderate R pleural effusion. Pacemaker interrogation performed 06/16/2021 revealed normal function as per my discussion with electrophysiology. Advance activity as tolerated. Left arm can be utilized during sleep, otherwise he can take it off during the day. He should keep his left elbow lower than the level of his left shoulder for the next 4 to 6 weeks. INR 1.4 . Continue coumadin load, without bridge therapy to reduce risk of pocket hematoma. Repeat INR 06/17/21. Avoid DVT prophylaxis dose of SQ heparin or LMWH as well. Continue ASA 81 mg given h/o CAD. Continue metoprolol succinate 12.5 mg daily for now, may be able to titrate up now that device is in place, however, dose still limited by hypotension. No ACEI / ARB or Enstresto due to renal insufficiency. BP to low to allow nitrates / hydralazine for afterload. Continue torsemide, KCl, atorvastatin. Agree with placement of referral to [facility] for ongoing physical therapy. Admission and Anticipated Discharge Date Admission Date: May 14, 2021 Subjective Patient seen in cardiology follow-up. He had a transient episode of feeling bilateral foot pain last evening which is new for him. Ultimately this improved with Tylenol, and apparently also received a dose of gabapentin. At present, no foot pain. He is in the bedside chair which I think is good progress for him. He is in good spirits. Review of Systems Review of Systems: All systems reviewed & are unremarkable except as noted in HPI & below Physical Exam Constitutional: + ill appearing (no acute distress ); no acute distress Respiratory: Auscultation: + diminished lung sounds (decreased BS at the bases right worse than left ); no crackles and no wheezes Cardiovascular: Rate/Rhythm: regular rate Heart Sounds: + murmur (1/6 systolic murmur) Extremities: + edema (Edema resolved) Gastrointestinal (Abdomen): normal bowel sounds, soft, nontender, no hepatosplenomegaly Neurologic: PERRL, EOMI, accommodation nl, no face palsy, no dysarthria Results & Data ([facility]) Vital Signs (Past 12 Hours) Vital Signs Temp Pulse Pulse Resp BP Pulse Ox 06/17/21 07:00 36.8 C 74 17 102/65 94 06/17/21 03:08 36.0 C L 88 14 125/68 95 06/16/21 23:09 36.7 C 85 17 98/61 L 97 06/16/21 23:04 73 Laboratory Results CBC 06/17/21 Range/Units 06:12 WBC 6.61 (4.8-10.8) K/uL RBC 2.28 L (4.7-6.1) M/uL Hgb 8.2 L (14.0-18.0) g/dL Hct 26.0 L (42-52) % Plt Count 294 (130-400) K/uL Neut # (Auto) 1.75 (1.4-6.5) K/uL Lymph # (Auto) 4.14 H (1.2-3.4) K/uL [place] # (Auto) 0.48 (0.11-0.59) K/uL Eos # (Auto) 0.19 (0-0.5) K/uL Baso # (Auto) 0.03 (0-0.2) K/uL Comprehensive Metabolic Panel 06/17/21 Range/Units 06:12 Sodium 139 (136-145) mmol/L Potassium 4.3 (3.5-5.1) mmol/L Chloride 104 (98-107) mmol/L Carbon Dioxide 27 (21-32) mmol/L BUN 74 H (7-18) mg/dl Creatinine 2.43 H (0.6-1.4) mg/dl Glucose 103 H (70-99) mg/dl Calcium 8.7 (8.5-10.1) mg/dl Intake and Output 06/16/21 06/17/21 06/17/21 22:59 06:59 14:59 Intake Total 700 / 1750 550 / 1750 Output Total 160 / 585 400 / 585 300 / 300 Balance 540 / 1165 150 / 1165 -300 / -300 Intake: Oral 700 / 1750 550 / 1750 Output: Urine 160 / 585 400 / 585 300 / 300 Other: # Unmeasured Voids 1 Weight 72.1 kg Weight Measurement Method Standing Scale
--- NOTE | 2021-06-17 10:54 | Communication Note ---
Date of Service: June 17, 2021 I called and updated patient's son Grey, and updated him.
[2021-06-17] MEDS: ASPIRIN 81 MG ECTAB PO SCH (12:38)
--- NOTE | 2021-06-17 15:41 | Hospitalist Progress Note ---
Date of Service June 17, 2021 Assessment & Plan (1) CHF exacerbation: Plan: (1) Acute on chronic HFrEF (heart failure with reduced ejection fraction): (2) Ischemic cardiomyopathy: (3) Pleural effusion: (1) Acute on chronic HFrEF (heart failure with reduced ejection fraction): (1) Pleural effusion: R (1878 cc)>L (642 cc),2/2 to above, s/p Rt thoracentesis 05/30 (2.2L out), #Lt thora 05/31 w/ 1L serous fluid out. Has underlying ischemic cardiomyopathy with an EF 25% IV diuretics per nephrology with continued dyspnea on exertion. FR 1.5 L daily. Strict Is and Os. Anthony not feasible d/t recent UTI Continue Toprol XL and aspirin. RYLEE/ARB contraindicated in renal disease. Atorvastatin initially held in LFT elevation 2/2 congestive hepatopathy but this has been restarted. Defer diuretic titration to Cardiology and Nephrology teams -->being optimized, pt was hypotensive after midday dose of diuretic Continue Torsemide 40mg daily Pulmonary not recommending Pleurex catheter placement due to risk of infection Status post ICD placement on 06/15/2021 Remains stable following the procedure PT and OT recommended return home with 02/01 care otherwise recommended inpatient rehab to continue physical therapy Denies any significant symptoms (2) Acute kidney injury superimposed on chronic kidney disease: Recent increased diuretic use as outpatient prior to hospitalization. Possible etiology also cardiorenal syndrome per nephro. Creatinine stable at 2.37, baseline creat 2.5. No HD per Nephro Continue torsemide 40 mg daily as per nephrology Continue monitor BMP while on diuresis Kidney function remains stable with BUN and creatinine 74/2.43 as of 06/17/2021 (3)Ischemic cardiomyopathy: Presumed per cardiology -> Lexiscan nuclear stress test demonstrated myocardial scar without superimposed ischemia, no benefit to cardiac cath at this time. Plan for BiV pacer/defibrillator placement as inpatient possible this week As above (4) Ventricular tachycardia: Status post ICD placement (5)Atrial fibrillation: Per cardiology, two brief episodes of afib noted 05/19 and . Continue amiodarone, Toprol-XL. Warfarin resumed 05/30; heparin drip as bridge--to stop when INR >1.9, daily pt/inr Spoke to cardiology and will start on started since patient claims for BiV pacer/defibrillator placement possible Monday or Monday Continue to hold warfarin-anticipate procedure Son's Grey was informed yesterday and agreed with the plan Started on intravenous heparin and has been continued-which are on hold due to hematuria We will try to resume aspirin and heparin this afternoon if hemoglobin remains stable Heparin has been on hold to decrease hemorrhage from the procedure Coumadin has been started-INR is not yet therapeutic Hematuria Likely secondary to catheter induced trauma Will DC Anthony catheter and observe for now We will check CBC around 5 PM and if the hemoglobin remains stable will start intravenous heparin and aspirin as the patient is a very high risk of clot formation No more hematuria (6) Pain of left heel: Recent thrombectomy of his left lower extremity in Mar 2021 after an NSTEMI and bilateral thoracentesis. He is subsequently developed a pressure ul cer that was painful on the left heel. Vascular evaluated and no further interventions needed. Cont medical management of peripheral vascular disease. Stable (7) Aortic stenosis: (8) Elevated transaminase level: Likely secondary to congestive hepatopathy, right upper quadrant ultrasound is within normal limits. This is improved and atorvastatin was restarted. (9) Anemia in CKD (chronic kidney disease): Continues on Procrit as outpatient. Received 1 unit PRBC during the hospital course Hemoglobin today 8.6 Continue monitor H&H (10) UTI (urinary tract infection): 05/20 urine culture positive for E. coli sensitive to cefepime and ceftriaxone. completed antibiotic course- Cefuroxime and Cefdinir (11) DVT prophylaxis: INR 1.5-Coumadin on hold Heparin drip is on hold and Coumadin has been restarted Will go slow with anticoagulation due to recent hematuria and surgery INR remains at 1.4-we will continue Coumadin Full code Disposition Will discharge once medically stable Will update the son Admission and Anticipated Discharge Date Admission Date: May 14, 2021 Subjective 06/14/2021 The patient was seen and examined in telemetry unit He complains to have 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 Denies any cardiac symptoms were any shortness of breath at rest He has been waiting to have ICD implanted on fifth of this month 06/15/2021 The patient was seen and examined in telemetry unit He is status post ICD placement Remains very drowsy but denies any significant symptoms 06/16/2021 The patient was seen and examined in telemetry unit He has been doing much better following ICD implantation Generally weak but otherwise no significant symptom 06/17/2021 The patient was seen and examined in telemetry unit He has been feeling much better and complains to have some pain at the site of pacemaker implantation Generally weak but does not have any other symptoms Review of Systems Review of Systems: All systems reviewed and are unremarkable except as noted below Physical Exam Physical Exam: Sitting on a chair without any distress Constitutional: well developed, well nourished and + obese; not ill appearing Eyes: PERRL, conjunctivae normal, anicteric sclerae ENMT: external ear and nose normal, oropharynx normal Neck: trachea midline, no thyromegaly Respiratory: no respiratory distress Auscultation: + diminished lung sounds and + crackles (Minimal crackles at the bases) Cardiovascular: Rate/Rhythm: regular rate and regular rhythm; not tachycardic Heart Sounds: normal S1, normal S2 and + murmur (2/6 ESM over precordium) Extremities: no edema Gastrointestinal (Abdomen): Inspection/Auscultation: normal bowel sounds; abdomen not distended Percussion/Palpation: abdomen soft; abdomen nontender Musculoskeletal: No acute arthritis in any joint but movement of the left upper extremity causes pain at the ICD implantation site Neurologic: Alert, awake and oriented x3 Results & Data Results & Data ([facility]) Vital Signs (Past 12 Hours) Vital Signs Temp Pulse Resp BP Pulse Ox 06/17/21 14:55 36.7 C 55 L 17 100/63 100 06/17/21 11:42 36.6 C 68 16 95/58 L 96 06/17/21 07:00 36.8 C 74 17 102/65 94 Laboratory Results Short CBC 06/17/21 Range/Units 06:12 WBC 6.61 (4.8-10.8) K/uL Hgb 8.2 L (14.0-18.0) g/dL Hct 26.0 L (42-52) % Plt Count 294 (130-400) K/uL BMP 06/17/21 06:12 Sodium 139 Potassium 4.3 Chloride 104 Carbon Dioxide 27 BUN 74 H Creatinine 2.43 H Glucose 103 H Calcium 8.7 Urine 06/16/21 Range/Units 20:24 Urine Color Yellow Urine Appearance Clear (Clear) Urine pH 5.5 (4.5-7.5) Ur Specific [place] 1.011 (1.000-1.030) Urine Protein Negative (Negative) Urine Glucose (UA) Negative (Negative) Medications Administered Current Inpatient Medications Acetaminophen (Acetaminophen 500 Mg Tab) 1,000 mg PO Q6H PRN PRN Reason: Pain Stop: 07/16/21 09:39 Last Admin: 06/16/21 22:54 Dose: 1,000 mg Documented by: Aspirin (Aspirin 81 Mg Ectab) 81 mg PO QAM [facility] Stop: 07/14/21 17:59 Last Admin: 06/17/21 12:38 Dose: 81 mg Documented by: Atorvastatin Calcium (Atorvastatin 40 Mg Tab) 40 mg PO QAM [facility] Stop: 06/20/21 08:59 Last Admin: 06/17/21 08:42 Dose: 40 mg Documented by: Carbamide Peroxide (Carbamide Peroxide 6.5% 15 Ml Btl) 2 - 3 drops OT BID [facility] Stop: 06/18/21 20:59 Last Admin: 06/17/21 08:43 Dose: 2 drops Documented by: Gabapentin (Gabapentin 100 Mg Cap) 100 mg PO 1700 PRN PRN Reason: neuropathy pain Stop: 07/06/21 16:59 Last Admin: 06/17/21 08:41 Dose: 100 mg Documented by: Ipratropium [place] (Ipratropium [place] Neb Soln 0.02% 2.5 Ml Vial) 0.5 mg INH Q6R PRN PRN Reason: Shortness Of Breath Or Wheezing Stop: 07/08/21 13:59 Levalbuterol HCl (Levalbuterol 1.25mg/0.5ml Neb) 1.25 mg INH Q6R PRN PRN Reason: Shortness Of Breath Or Wheezing Stop: 07/08/21 13:52 Metoprolol Succinate (Metoprolol Succ 25mg Ext Rel Tab) 12.5 mg PO PM ABAD Stop: 06/29/21 20:59 Last Admin: 06/16/21 20:59 Dose: Not Given Documented by: Potassium Chloride (Potassium Chloride Crtab 20 Meq Tabcr) 40 meq PO DAILY ABAD Stop: 07/09/21 08:59 Last Admin: 06/17/21 08:41 Dose: 40 meq Documented by: Torsemide (Torsemide 10 Mg Tab) 40 mg PO QAM [facility] Stop: 07/08/21 10:59 Last Admin: 06/17/21 08:42 Dose: 40 mg Documented by: Warfarin Sodium (Warfarin Sod 2.5 Mg Tab) 2.5 mg PO DAILY@1600 [facility] Stop: 07/15/21 15:59 Last Admin: 06/16/21 17:07 Dose: 2.5 mg Documented by:
[2021-06-17] MEDS: WARFARIN SOD 2.5 MG TAB PO SCH (16:29)
[2021-06-17] MEDS: METOPROLOL SUCC 25MG EXT REL TAB PO SCH (20:04)
[2021-06-18 06:28] LABS: Hematocrit (blood only) 22.2 % (42-52); Hemoglobin 7.2 g/dL (14.0-18.0); Mean Corpuscular Hemoglobin 37.3 pg (25-34); Mean Corpuscular Hgb Conc 32.4 g/dL (32-36); Mean Platelet Volume 9.4 fL (7.4-10.4); Platelet Count 251 K/uL (130-400); RDW Coefficient of Variation 22.5 % (11.5-14.5); RDW Standard Deviation 92.9 fL (36.4-46.3); Red Blood Count 1.93 M/uL (4.7-6.1)
[2021-06-18 06:36] LABS: INR 1.5 (0.9-1.1); Prothrombin Time 14.8 Seconds (9.0-12.0)
[2021-06-18 07:03] LABS: BUN Creatinine Ratio 29.5 (10-20); Calcium 8.7 mg/dl (8.5-10.1); Creatinine Clr Calc Pharmacy 22.3 ml/min; Est GFR (Non-African American) 23.3 ml/min; Magnesium 2.4 mg/dl (1.8-2.4); Potassium 3.8 mmol/L (3.5-5.1)
[2021-06-18 07:06] LABS: Anisocytosis Present; Basophils # (auto) 0.02 K/uL (0-0.2); Basophils % (auto) 0.4 %; Eosinophils # (auto) 0.18 K/uL (0-0.5); Eosinophils % (auto) 3.5 %; Immature Granulocytes # (auto) 0.01 K/uL (0.00-0.02); Immature Granulocytes % (auto) 0.2 %; Lymphocytes # (auto) 3.18 K/uL (1.2-3.4); Lymphocytes % (auto) 61.2 %; Macrocytosis Present; Monocytes # (auto) 0.42 K/uL (0.11-0.59); Monocytes % (auto) 8.1 %; Neutrophils # (auto) 1.39 K/uL (1.4-6.5); Neutrophils % (auto) 26.6 %; Ovalocytes 1+; Poikilocytosis Present
[2021-06-18] MEDS: TORSEMIDE 10 MG TAB PO SCH (07:30)
[2021-06-18] MEDS: ASPIRIN 81 MG ECTAB PO SCH (07:30)
[2021-06-18] MEDS: ATORVASTATIN 40 MG TAB PO SCH (07:30)
[2021-06-18] MEDS: POTASSIUM CHLORIDE CRTAB 20 MEQ TABCR PO SCH (07:31)
[2021-06-18] MEDS: CARBAMIDE PEROXIDE 6.5% 15 ML BTL OT SCH (07:31)
[2021-06-18] MEDS ORDERED: SODIUM CHLORIDE 0.9% 250 ML IV PRN (08:11)
--- NOTE | 2021-06-18 09:44 | Nephrology Progress Note ---
Date of Service June 18, 2021 Assessment & Plan (1) CKD (chronic kidney disease) stage 4, GFR 15-29 ml/min: Plan: at baseline currently and for several days; has had this admission recurrent acute kidney injury on CKD4 due to cardiorenal syndrome. Baseline creatinine of 2.5. Admission creatinine of 3.8 and plateau'd at about 2.6 for several days; creatinine down to 2.2 > ? if will improve after pacer. Potassium and other chemistries ok - Continue with torsemide 40 daily. - replace potassium as needed; continue 40 mEq daily K dose for now -cont 1.5L FR; have stopped dialysis diet -Monitor input output - needs I/O best we can -Daily BMP or qod if he is on stable diuretic/K dosing >>will follow intermittently while in house (2) Acute decompensated heart failure: Plan: Patient with a low EF of 25% and pulmonary hypertension. s/p pacer placement 06/15/21, after appropriate medical tx window/optimization -diuretics as above Continue fluid limit 1.5 L daily (in general he takes in less than 1 L); continue less than 2 g daily sodium diet (3) Anemia due to chronic disease treated with erythropoietin: Plan: Patient received Procrit 20k units on 05/26, 06/09, 06/14, 06/16. We will continue to monitor and give Procrit as needed; minimal response and maximal dosing >low threshold to transfuse and would give lasix 40 mg IV if doing so -eval for cause in hgb drop after stable several days Admission and Anticipated Discharge Date Admission Date: May 14, 2021 Subjective still sore after pacer site; getting pRBC; no worsening sob. foot still sore but better Review of Systems Review of Systems: All systems reviewed & are unremarkable except as noted in Subjective Physical Exam Constitutional: well developed and well nourished; no acute distress Eyes: EOM intact bilaterally ENMT: Ears: no external ear abnormality Nose: no external nose abnormality Mouth: + dry oral mucous membranes Neck: no nuchal rigidity Respiratory: normal respiratory effort; no respiratory distress Auscultation: + diminished lung sounds Cardiovascular: Rate/Rhythm: regular rate and regular rhythm Extremities: no edema Gastrointestinal (Abdomen): Inspection/Auscultation: normal bowel sounds Percussion/Palpation: abdomen soft; abdomen nontender Musculoskeletal: Extremities: strength 5/5 throughout Skin: no rashes, warm and dry Psychiatric: Orientation: alert and oriented x 3 Affect: + anxious affect Insight: + limited insight Judgement: + limited judgement Results & Data ([facility]) Vital Signs (Past 12 Hours) Vital Signs Temp Pulse Pulse Resp BP Pulse Ox 06/18/21 09:33 73 06/18/21 07:06 36.8 C 71 16 90/58 L 96 06/18/21 04:08 36.9 C 76 19 92/55 L 96 06/17/21 23:08 36.7 C 94 H 18 97/60 L 95 06/17/21 22:54 73 Laboratory Results 06/18/21 05:57 06/18/21 05:57
--- NOTE | 2021-06-18 12:25 | Cardiology Progress Note ---
Date of Service June 18, 2021 Assessment & Plan (1) Cardiomyopathy: Plan: Prolonged hospital stay, hospital day 35 1. Acute on chronic heart failure with reduced ejection fraction, NYHA functional class III, presumed ischemic cardiomyopathy, nuclear perfusion study performed this admission revealing large LAD territory scar, LVEF 25% 2. Cardiorenal syndrome 3. Longstanding left bundle branch block, with progression noted this admission, QRS duration 160-170 ms, echocardiographic evidence of LV dyssynchrony 4. Baseline moderate aortic stenosis, noted at time of echocardiogram November,, at which time LVEF was normal. 5. Myelodysplastic syndrome 6. paroxysmal atrial fibrillation 7. Moderate aortic stenosis Plan: s/p biventricular pacemaker ICD on 06/15/21, CXR 06/15 no PTX, stable moderate R pleural effusion. Pacemaker interrogation performed 06/16/2021 revealed normal function as per my discussion with electrophysiology. Advance activity as tolerated. Left arm can be utilized during sleep, otherwise he can take it off during the day. He should keep his left elbow lower than the level of his left shoulder for the next 4 to 6 weeks. INR 1.5 . Continue coumadin load, without bridge therapy to reduce risk of pocket hematoma. Increase Coumadin dose to 5 milligrams daily, 06/18/2021, with caution with regards to anemia. Anemia of course is chronic in the setting of myelodysplastic syndrome, CLL, renal disease. He has been on Procrit therapy on a chronic basis for support and has received here. Repeat INR 06/19/21. Avoid DVT prophylaxis dose of SQ heparin or LMWH as well. Continue ASA 81 mg given h/o CAD. Continue metoprolol succinate 12.5 mg daily for now, may be able to titrate up now that device is in place, however, dose still limited by hypotension. No ACEI / ARB or Enstresto due to renal insufficiency. BP to low to allow nitrates / hydralazine for afterload. Continue torsemide, KCl, atorvastatin. Agree with placement of referral to [facility] for ongoing physical therapy. Admission and Anticipated Discharge Date Admission Date: May 14, 2021 Subjective Patient seen follow-up. Hemoglobin was down to 7.2 this morning and he is receiving a unit of packed red blood cells. Telemetry reveals ongoing sinus rhythm, atrial sensed, biventricular paced in the 60s to 70s. Patient believes and that he had a little bit of blood in his stool, but no grossly bloody bowel movement. Denies hematuria. Physical Exam Physical Exam: Temp Pulse Resp BP Pulse Ox 36.8 C 68 18 96/54 L 98 06/18/21 11:56 06/18/21 11:56 06/18/21 11:56 06/18/21 11:56 06/18/21 11:56 Constitutional: + ill appearing (no acute distress ); no acute distress Respiratory: Auscultation: + diminished lung sounds (decreased BS at the bases right worse than left ); no crackles and no wheezes Cardiovascular: Rate/Rhythm: regular rate Heart Sounds: + murmur (1/6 systolic murmur) Extremities: + edema (Edema resolved) Gastrointestinal (Abdomen): normal bowel sounds, soft, nontender, no hepatosplenomegaly Neurologic: PERRL, EOMI, accommodation nl, no face palsy, no dysarthria Results & Data ([facility] [place]) Vital Signs (Past 12 Hours) Vital Signs Temp Pulse Pulse Resp BP BP Pulse Ox 06/18/21 11:56 36.8 C 68 18 96/54 L 98 06/18/21 10:11 36.6 C 68 18 86/52 L 98 06/18/21 09:33 73 06/18/21 07:06 36.8 C 71 16 90/58 L 96 06/18/21 04:08 36.9 C 76 19 92/55 L 96 Laboratory Results Coagulation 06/18/21 Range/Units 05:57 PT 14.8 H (9.0-12.0) Seconds CBC 06/18/21 Range/Units 05:57 WBC 5.20 (4.8-10.8) K/uL RBC 1.93 L (4.7-6.1) M/uL Hgb 7.2 L (14.0-18.0) g/dL Hct 22.2 L (42-52) % Plt Count 251 (130-400) K/uL Neut # (Auto) 1.39 L (1.4-6.5) K/uL Lymph # (Auto) 3.18 (1.2-3.4) K/uL Chambers # (Auto) 0.42 (0.11-0.59) K/uL Eos # (Auto) 0.18 (0-0.5) K/uL Baso # (Auto) 0.02 (0-0.2) K/uL Comprehensive Metabolic Panel 06/18/21 Range/Units 05:57 Sodium 136 (136-145) mmol/L Potassium 3.8 (3.5-5.1) mmol/L Chloride 103 (98-107) mmol/L Carbon Dioxide 28 (21-32) mmol/L BUN 74 H (7-18) mg/dl Creatinine 2.51 H (0.6-1.4) mg/dl Glucose 100 H (70-99) mg/dl Calcium 8.7 (8.5-10.1) mg/dl Intake and Output 06/17/21 06/18/21 06/18/21 22:59 06:59 14:59 Intake Total 340 / 820 0 / 0 Output Total 250 / 1250 350 / 1250 Balance 90 / -430 -350 / -430 0 / 0 Intake: Oral 340 / 820 Intake (Blood Product) Amt 0 / 0 Packed Cells, Leukoreduced 0 / 0 Unit [id number] Output: Urine 250 / 1250 350 / 1250 Other: Other Intake Source ICE CHIPS Weight 71.9 kg Weight Measurement Method Standing Scale
[2021-06-18] MEDS ORDERED: FUROSEMIDE 40 MG/4 ML VIAL IV ONE (13:00)
[2021-06-18] MEDS ORDERED: FUROSEMIDE INJ 20 MG/2 ML VIAL IV ONE (13:15)
--- NOTE | 2021-06-18 13:27 | Hospitalist Progress Note ---
Date of Service June 18, 2021 Assessment & Plan (1) CHF exacerbation: Plan: (1) Acute on chronic HFrEF (heart failure with reduced ejection fraction): (2) Ischemic cardiomyopathy: (3) Pleural effusion: (1) Acute on chronic HFrEF (heart failure with reduced ejection fraction): (1) Pleural effusion: R (1878 cc)>L (642 cc),2/2 to above, s/p Rt thoracentesis 05/30 (2.2L out), #Lt thora 05/31 w/ 1L serous fluid out. Has underlying ischemic cardiomyopathy with an EF 25% IV diuretics per nephrology with continued dyspnea on exertion. FR 1.5 L daily. Strict Is and Os. Anthony not feasible d/t recent UTI Continue Toprol XL and aspirin. RYLEE/ARB contraindicated in renal disease. Atorvastatin initially held in LFT elevation 2/2 congestive hepatopathy but this has been restarted. Defer diuretic titration to Cardiology and Nephrology teams -->being optimized, pt was hypotensive after midday dose of diuretic Continue Torsemide 40mg daily Pulmonary not recommending Pleurex catheter placement due to risk of infection Status post ICD placement on 06/15/2021 Remains stable following the procedure PT and OT recommended return home with 02/01 care otherwise recommended inpatient rehab to continue physical therapy Denies any significant symptoms but weakness Is hemoglobin noted to be low at 7.2, might be contributing the weakness and he will receive 1 unit of blood transfusion today Continue current management (2) Acute kidney injury superimposed on chronic kidney disease: Recent increased diuretic use as outpatient prior to hospitalization. Possible etiology also cardiorenal syndrome per nephro. Creatinine stable at 2.37, baseline creat 2.5. No HD per Nephro Continue torsemide 40 mg daily as per nephrology Continue monitor BMP while on diuresis Kidney function remains stable with BUN and creatinine 74/2.43 as of 06/17/2021 (3)Ischemic cardiomyopathy: Presumed per cardiology -> Lexiscan nuclear stress test demonstrated myocardial scar without superimposed ischemia, no benefit to cardiac cath at this time. Plan for BiV pacer/defibrillator placement as inpatient possible this week As above (4) Ventricular tachycardia: Status post ICD placement (5)Atrial fibrillation: Per cardiology, two brief episodes of afib noted 05/19 and . Continue amiodarone, Toprol-XL. Warfarin resumed 05/30; heparin drip as bridge--to stop when INR >1.9, daily pt/inr Spoke to cardiology and will start on started since patient claims for BiV pacer/defibrillator placement possible Monday or Monday Continue to hold warfarin-anticipate procedure Son'autumn Edmonds was informed yesterday and agreed with the plan Started on intravenous heparin and has been continued-which are on hold due to hematuria We will try to resume aspirin and heparin this afternoon if hemoglobin remains stable Heparin has been on hold to decrease hemorrhage from the procedure Coumadin has been started-INR is not yet therapeutic-1.5 as of 06/18/2021 Hematuria Likely secondary to catheter induced trauma Will DC Anthony catheter and observe for now We will check CBC around 5 PM and if the hemoglobin remains stable will start intravenous heparin and aspirin as the patient is a very high risk of clot formation No more hematuria (6) Pain of left heel: Recent thrombectomy of his left lower extremity in Mar 2021 after an NSTEMI and bilateral thoracentesis. He is subsequently developed a pressure ulcer that was painful on the left heel. Vascular evaluated and no further interventions needed. Cont medical management of peripheral vascular disease. Stable (7) Aortic stenosis: (8) Elevated transaminase level: Likely secondary to congestive hepatopathy, right upper quadrant ultrasound is within normal limits. This is improved and atorvastatin was restarted. (9) Anemia in CKD (chronic kidney disease): Continues on Procrit as outpatient. Received 1 unit PRBC during the hospital course Hemoglobin today 8.6 Continue monitor H&H-hemoglobin went down to 7.2 as of 06/18/2021 He will get 1 unit of blood transfusion with 20 of intravenous Lasix Check CBC tomorrow (10) UTI (urinary tract infection): 05/20 urine culture positive for E. coli sensitive to cefepime and ceftriaxone. 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 Denies any cardiac symptoms were any shortness of breath at rest He has been waiting to have ICD implanted on of this month 06/15/2021 The patient was seen and examined in telemetry unit He is status post ICD placement Remains very drowsy but denies any significant symptoms 06/16/2021 The patient was seen and examined in telemetry unit He has been doing much better following ICD implantation Generally weak but otherwise no significant symptom 06/17/2021 The patient was seen and examined in telemetry unit He has been feeling much better and complains to have some pain at the site of pacemaker implantation Generally weak but does not have any other symptoms 06/18/2021 The patient was seen and examined in telemetry unit He has been generally weak but denies any chest pain and/or palpitation Denies any shortness of breath at rest He was noted to have a low hemoglobin of 7.2 and will get 1 unit of blood transfusion Review of Systems Review of Systems: All systems reviewed and are unremarkable except as noted below Respiratory: No shortness of breath at rest Cardiovascular: Additional Comments: No chest pain and/or palpitation Physical Exam Physical Exam: Sitting on a chair without any distress Constitutional: well developed, well nourished and + obese; not ill appearing Eyes: PERRL, conjunctivae normal, anicteric sclerae ENMT: external ear and nose normal, oropharynx normal Neck: trachea midline, no thyromegaly Respiratory: no respiratory distress Auscultation: + diminished lung sounds and + crackles (Minimal crackles at the bases) Cardiovascular: Rate/Rhythm: regular rate and regular rhythm; not tachycardic Heart Sounds: normal S1, normal S2 and + murmur (2/6 ESM over precordium) Extremities: no edema Gastrointestinal (Abdomen): Inspection/Auscultation: normal bowel sounds; abdomen not distended Percussion/Palpation: abdomen soft; abdomen nontender Musculoskeletal: No acute arthritis in any joint Neurologic: Alert, awake and oriented x3. No focal sensory or motor deficit appreciated but he is generally weak Lymphatic: no cervical or axillary lymphadenopathy Results & Data Results & Data ([facility]) Vital Signs (Past 12 Hours) Vital Signs Temp Pulse Pulse Resp BP BP Pulse Ox 06/18/21 12:20 36.5 C 67 16 90/56 L 97 06/18/21 12:05 36.7 C 66 16 92/54 L 97 06/18/21 11:56 36.8 C 68 18 96/54 L 98 06/18/21 11:05 36.7 C 70 16 90/46 L 97 06/18/21 10:35 36.8 C 67 16 93/56 L 98 06/18/21 10:20 37.0 C 69 20 95/59 L 97 06/18/21 10:11 36.6 C 68 18 86/52 L 98 06/18/21 09:33 73 06/18/21 07:06 36.8 C 71 16 90/58 L 96 06/18/21 04:08 36.9 C 76 19 92/55 L 96 Laboratory Results Short CBC 06/18/21 Range/Units 05:57 WBC 5.20 (4.8-10.8) K/uL Hgb 7.2 L (14.0-18.0) g/dL Hct 22.2 L (42-52) % Plt Count 251 (130-400) K/uL BMP 06/18/21 05:57 Sodium 136 Potassium 3.8 Chloride 103 Carbon Dioxide 28 BUN 74 H Creatinine 2.51 H Glucose 100 H Calcium 8.7 Medications Administered Current Inpatient Medications Acetaminophen (Acetaminophen 500 Mg Tab) 1,000 mg PO Q6H PRN PRN Reason: Pain Stop: 07/16/21 09:39 Last Admin: 06/16/21 22:54 Dose: 1,000 mg Documented by: Aspirin (Aspirin 81 Mg Ectab) [facility] Stop: 07/14/21 17:59 Last Admin: 06/18/21 07:30 Dose: 81 mg Documented by: Atorvastatin Calcium (Atorvastatin 40 Mg Tab) 40 mg PO QAM ABAD Stop: 06/20/21 08:59 Last Admin: 06/18/21 07:30 Dose: 40 mg Documented by: Carbamide Peroxide (Carbamide Peroxide 6.5% 15 Ml Btl) 2 - 3 drops OT BID ABAD Stop: 06/18/21 20:59 Last Admin: 06/18/21 07:31 Dose: 2 drops Documented by: Gabapentin (Gabapentin 100 Mg Cap) 100 mg PO 1700 PRN PRN Reason: neuropathy pain Stop: 07/06/21 16:59 Last Admin: 06/17/21 08:41 Dose: 100 mg Documented by: Sodium Chloride (Nss) 250 mls @ 15 mls/hr IV .[id number] PRN PRN Reason: For Transfusion Stop: 06/18/21 18:12 Ipratropium [place] (Ipratropium [place] Neb Soln 0.02% 2.5 Ml Vial) 0.5 mg INH Q6R PRN PRN Reason: Shortness Of Breath Or Wheezing Stop: 07/08/21 13:59 Levalbuterol HCl (Levalbuterol 1.25mg/0.5ml Neb) 1.25 mg INH Q6R PRN PRN Reason: Shortness Of Breath Or Wheezing Stop: 07/08/21 13:52 Metoprolol Succinate (Metoprolol Succ 25mg Ext Rel Tab) 12.5 mg PO PM [facility] Stop: 06/29/21 20:59 Last Admin: 06/17/21 20:04 Dose: Not Given Documented by: Potassium Chloride (Potassium Chloride Crtab 20 Meq Tabcr) 40 meq PO DAILY [facility] Stop: 07/09/21 08:59 Last Admin: 06/18/21 07:31 Dose: 40 meq Documented by: Torsemide (Torsemide 10 Mg Tab) 40 mg PO QAM [facility] Stop: 07/08/21 10:59 Last Admin: 06/18/21 07:30 Dose: 40 mg Documented by: Warfarin Sodium (Warfarin Sod 5 Mg Tab) 5 mg PO DAILY@1600 [facility] Stop: 07/18/21 15:59
[2021-06-18] MEDS: WARFARIN SOD 5 MG TAB PO SCH (15:52)
[2021-06-18] MEDS: METOPROLOL SUCC 25MG EXT REL TAB PO SCH (20:44)
[2021-06-19 05:59] LABS: INR 1.4 (0.9-1.1)
[2021-06-19 06:03] LABS: BUN Creatinine Ratio 34.6 (10-20); Calcium 8.8 mg/dl (8.5-10.1); Creatinine Clr Calc Pharmacy 26.3 ml/min; Est GFR (African American) 32.9 ml/min; Est GFR (Non-African American) 28.4 ml/min; Potassium 3.6 mmol/L (3.5-5.1)
[2021-06-19 07:04] LABS: Hematocrit (blood only) 25.6 % (42-52); Hemoglobin 8.7 g/dL (14.0-18.0); Mean Corpuscular Hemoglobin 36.7 pg (25-34); Mean Platelet Volume 9.2 fL (7.4-10.4); Platelet Count 261 K/uL (130-400); RDW Coefficient of Variation 23.3 % (11.5-14.5); Red Blood Count 2.37 M/uL (4.7-6.1); White Blood Count 5.43 K/uL (4.8-10.8)
[2021-06-19 07:05] LABS: Anisocytosis Present; Basophils # (auto) 0.02 K/uL (0-0.2); Basophils % (auto) 0.4 %; Eosinophils # (auto) 0.17 K/uL (0-0.5); Eosinophils % (auto) 3.1 %; Immature Granulocytes # (auto) 0.01 K/uL (0.00-0.02); Immature Granulocytes % (auto) 0.2 %; Lymphocytes % (auto) 58.9 %; Monocytes # (auto) 0.47 K/uL (0.11-0.59); Monocytes % (auto) 8.7 %; Neutrophils # (auto) 1.56 K/uL (1.4-6.5); Neutrophils % (auto) 28.7 %; Poikilocytosis Present; Polychromasia 1+
[2021-06-19] MEDS: ASPIRIN 81 MG ECTAB PO SCH (07:58)
[2021-06-19] MEDS: TORSEMIDE 10 MG TAB PO SCH (07:58)
[2021-06-19] MEDS: ATORVASTATIN 40 MG TAB PO SCH (07:58)
[2021-06-19] MEDS ORDERED: LACTULOSE SYRUP 30 GM/45 ML UDP PO ONE (08:00)
[2021-06-19] MEDS: POTASSIUM CHLORIDE CRTAB 20 MEQ TABCR PO SCH (08:03)
[2021-06-19] MEDS: POLYETHYLENE (MIRALAX) 17 GM PACK PO PRN (08:03)
--- NOTE | 2021-06-19 11:53 | Hospitalist Progress Note ---
Date of Service June 19, 2021 Assessment & Plan (1) CHF exacerbation: Plan: (1) Acute on chronic HFrEF (heart failure with reduced ejection fraction): (2) Ischemic cardiomyopathy: (3) Pleural effusion: (1) Acute on chronic HFrEF (heart failure with reduced ejection fraction): (1) Pleural effusion: R (1878 cc)>L (642 cc),2/2 to above, s/p Rt thoracentesis 05/30 (2.2L out), #Lt thora 05/31 w/ 1L serous fluid out. Has underlying ischemic cardiomyopathy with an EF 25% IV diuretics per nephrology with continued dyspnea on exertion. FR 1.5 L daily. Strict Is and Os. Anthony not feasible d/t recent UTI Continue Toprol XL and aspirin. RYLEE/ARB contraindicated in renal disease. Atorvastatin initially held in LFT elevation 2/2 congestive hepatopathy but this has been restarted. Defer diuretic titration to Cardiology and Nephrology teams -->being optimized, pt was hypotensive after midday dose of diuretic Continue Torsemide 40mg daily Pulmonary not recommending Pleurex catheter placement due to risk of infection Status post ICD placement on 06/15/2021 Remains stable following the procedure PT and OT recommended return home with 02/01 care otherwise recommended inpatient rehab to continue physical therapy Denies any significant symptoms but weakness Is hemoglobin noted to be low at 7.2, might be contributing the weakness and he will receive 1 unit of blood transfusion today Has been feeling much better following 1 unit of blood transfusion with hemoglobin went up to 8.7 Denies any significant symptoms. (2) Acute kidney injury superimposed on chronic kidney disease: Recent increased diuretic use as outpatient prior to hospitalization. Possible etiology also cardiorenal syndrome per nephro. Creatinine stable at 2.37, baseline creat 2.5. No HD per Nephro Continue torsemide 40 mg daily as per nephrology Continue monitor BMP while on diuresis Kidney function remains stable with BUN and creatinine 74/2.43 as of 06/17/2021 (3)Ischemic cardiomyopathy: Presumed per cardiology -> Lexiscan nuclear stress test demonstrated myocardial scar without superimposed ischemia, no benefit to cardiac cath at this time. Plan for BiV pacer/defibrillator placement as inpatient possible this week As above (4) Ventricular tachycardia: Status post ICD placement (5)Atrial fibrillation: Per cardiology, two brief episodes of afib noted 05/19 and . Continue amiodarone, Toprol-XL. Warfarin resumed 05/30; heparin drip as bridge--to stop when INR >1.9, daily pt/inr Spoke to cardiology and will start on started since patient claims for BiV pacer/defibrillator placement possible Monday or Monday Continue to hold warfarin-anticipate procedure Son's Grey was informed yesterday and agreed with the plan Started on intravenous heparin and has been continued-which are on hold due to hematuria We will try to resume aspirin and heparin this afternoon if hemoglobin remains stable Heparin has been on hold to decrease hemorrhage from the procedure Coumadin has been started-INR is not yet therapeutic-1.5 as of 06/18/2021 Heart rate is controlled-INR remains at 1.4 Will give additional 2.5 mg Coumadin today Hematuria Likely secondary to catheter induced trauma Will DC Anthony catheter and observe for now We will check CBC around 5 PM and if the hemoglobin remains stable will start intravenous heparin and aspirin as the patient is a very high risk of clot formation No more hematuria (6) Pain of left heel: Recent thrombectomy of his left lower extremity in Mar 2021 after an NSTEMI and bilateral thoracentesis. He is subsequently developed a pressure ulcer that was painful on the left heel. Vascular evaluated and no further interventions needed. Cont medical management of peripheral vascular disease. Stable (7) Aortic stenosis: (8) Elevated transaminase level: Likely secondary to congestive hepatopathy, right upper quadrant ultrasound is within normal limits. This is improved and atorvastatin was restarted. (9) Anemia in CKD (chronic kidney disease): Continues on Procrit as outpatient. Received 1 unit PRBC during the hospital course Hemoglobin today 8.6 Continue monitor H&H-hemoglobin went down to 7.2 as of 06/18/2021 He will get 1 unit of blood transfusion with 20 of intravenous Lasix Check CBC tomorrow-hemoglobin is 8.7 (10) UTI (urinary tract infection): 05/20 urine culture positive for E. coli sensitive to cefepime and ceftriaxone. completed antibiotic course- Cefuroxime and Cefdinir (11) DVT prophylaxis: INR 1.5-Coumadin on hold Heparin drip is on hold and Coumadin has been restarted Will go slow with anticoagulation due to recent hematuria and surgery INR remains at 1.5-we will continue Coumadin Will give additional 2.5 mg Coumadin today Full code Disposition Will discharge once medically stable Updated his son yesterday 06/17/2021 and he will be going to [facility] when accepted Admission and Anticipated Discharge Date Admission Date: May 14, 2021 Subjective 06/14/2021 The patient was seen and examined in telemetry unit He complains to have 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 Denies any cardiac symptoms were any shortness of breath at rest He has been waiting to have ICD implanted on fifth of this month 06/15/2021 The patient was seen and examined in telemetry unit He is status post ICD placement Remains very drowsy but denies any significant symptoms 06/16/2021 The patient was seen and examined in telemetry unit He has been doing much better following ICD implantation Generally weak but otherwise no significant symptom 06/17/2021 The patient was seen and examined in telemetry unit He has been feeling much better and complains to have some pain at the site of pacemaker implantation Generally weak but does not have any other symptoms 06/18/2021 The patient was seen and examined in telemetry unit He has been generally weak but denies any chest pain and/or palpitation Denies any shortness of breath at rest He was noted to have a low hemoglobin of 7.2 and will get 1 unit of blood transfusion 06/19/2021 The patient was seen and examined in telemetry unit He has been feeling much better following 1 unit of blood transfusion and the hemoglobin is up at 8.7 His left upper chest wall pain is better Denies any shortness of breath Review of Systems Review of Systems: All systems reviewed and are unremarkable except as noted below Ear, Nose, Mouth, Throat: Left ear fullness Respiratory: No shortness of breath at rest Cardiovascular: Additional Comments: No chest pain and/or palpitation Physical Exam Physical Exam: Sitting on a chair without any distress Constitutional: well developed, well nourished and + obese; not ill appearing Eyes: PERRL, conjunctivae normal, anicteric sclerae ENMT: external ear and nose normal, oropharynx normal Neck: trachea midline, no thyromegaly Respiratory: no respiratory distress Auscultation: + diminished lung sounds and + crackles (Minimal crackles at the bases) Cardiovascular: Rate/Rhythm: regular rate and regular rhythm; not tachycardic Heart Sounds: normal S1, normal S2 and + murmur (2/6 ESM over precordium) Extremities: no edema Gastrointestinal (Abdomen): Inspection/Auscultation: normal bowel sounds; abdomen not distended Percussion/Palpation: abdomen soft; abdomen nontender Musculoskeletal: No acute arthritis in any joint Neurologic: PERRL, EOMI, accommodation nl, no face palsy, no dysarthria Lymphatic: no cervical or axillary lymphadenopathy Results & Data Results & Data ([facility]) Vital Signs (Past 12 Hours) Vital Signs Temp Pulse Pulse Resp BP BP Pulse Ox 06/19/21 11:23 36.4 C L 63 20 86/50 L 95 06/19/21 07:30 85 06/19/21 07:07 36.5 C 87 16 96/50 L 92 06/19/21 03:50 36.7 C 71 18 110/65 96 06/19/21 00:34 76 Laboratory Results Short CBC 06/19/21 Range/Units 05:30 WBC 5.43 (4.8-10.8) K/uL Hgb 8.7 L (14.0-18.0) g/dL Hct 25.6 L (42-52) % Plt Count 261 (130-400) K/uL BMP 06/19/21 05:30 Sodium 138 Potassium 3.6 Chloride 105 Carbon Dioxide 27 BUN 74 H Creatinine 2.13 H D Glucose 97 Calcium 8.8 Medications Administered Current Inpatient Medications Acetaminophen (Acetaminophen 500 Mg Tab) 1,000 mg PO Q6H PRN PRN Reason: Pain Stop: 07/16/21 09:39 Last Admin: 06/16/21 22:54 Dose: 1,000 mg Documented by: Aspirin (Aspirin 81 Mg Ectab) 81 mg PO [facility] Stop: 07/14/21 17:59 Last Admin: 06/19/21 07:58 Dose: 81 mg Documented by: Atorvastatin Calcium (At[facility]vastatin 40 Mg Tab) [facility] [place]: 06/20/21 08:59 Last Admin: 06/19/21 07:58 Dose: 40 mg Documented by: Gabapentin (Gabapentin 100 Mg Cap) 100 mg PO 1700 PRN PRN Reason: neuropathy pain Stop: 07/06/21 16:59 Last Admin: 06/17/21 08:41 Dose: 100 mg Documented by: Ipratropium [place] (Ipratropium [place] Neb Soln 0.02% 2.5 Ml Vial) 0.5 mg INH Q6R PRN PRN Reason: Shortness Of Breath Or Wheezing Stop: 07/08/21 13:59 Levalbuterol HCl (Levalbuterol 1.25mg/0.5ml Neb) 1.25 mg INH Q6R PRN PRN Reason: Shortness Of Breath Or Wheezing Stop: 07/08/21 13:52 Metoprolol Succinate (Metoprolol Succ 25mg Ext Rel Tab) 12.5 mg PO PM [facility] Stop: 06/29/21 20:59 Last Admin: 06/18/21 20:44 Dose: 12.5 mg Documented by: Polyethylene Glycol (Polyethylene (Miralax) 17 Gm Pack) 17 gm PO DAILY PRN PRN Reason: Constipation Stop: 07/19/21 07:30 Last Admin: 06/19/21 08:03 Dose: 17 gm Documented by: Potassium Chloride (Potassium Chloride Crtab 20 Meq Tabcr) 40 meq PO DAILY [facility] Stop: 07/09/21 08:59 Last Admin: 06/19/21 08:03 Dose: 40 meq Documented by: Torsemide (Torsemide 10 Mg Tab) 40 mg PO QAM [facility] Stop: 07/08/21 10:59 Last Admin: 06/19/21 07:58 Dose: 40 mg Documented by: Warfarin Sodium (Warfarin Sod 5 Mg Tab) 5 mg PO DAILY@1600 [facility] Stop: 07/18/21 15:59 Last Admin: 06/18/21 15:52 Dose: 5 mg Documented by:
--- NOTE | 2021-06-19 13:15 | Cardiology Progress Note ---
Date of Service June 19, 2021 Assessment & Plan (1) Chronic heart failure with reduced ejection fraction and diastolic dy sfunction: (2) Cardiomyopathy: (3) LBBB (left bundle branch block): (4) Cardiorenal syndrome with renal failure: (5) Aortic stenosis, moderate: (6) Anemia in CKD (chronic kidney disease): (7) Paroxysmal atrial fibrillation: Plan: Biventricular ICD placed this week without complication. Recommend repeat echocardiogram in 12 weeks. Anemia improved. Continue to monitor H&H. Dose Coumadin daily for goal INR of 2.0-3.0. Subcu heparin and or molecular weight heparin avoided at this time due to recent device implantation. Continue low-dose aspirin and other cardiovascular medications as previously ordered. A.m. labs including CBC, BMP, and INR. Admission and Anticipated Discharge Date Admission Date: May 14, 2021 Subjective Patient seen and examined at the bedside. Feeling better today. Hemoglobin 8.7 g/dL. Edema controlled. Fluid balance -930 cc. Renal function remained stable. Tolerating medications listed below. Offers no concerns/complaints. Biventricular ICD implant earlier this week without complication. Telemetry reveals sinus rhythm with a transient episode of paroxysmal atrial fibrillation with controlled ventricular response. Review of Systems Review of Systems: All systems reviewed & are unremarkable except as noted in Subjective Physical Exam Constitutional: well developed and well nourished; no acute distress Respiratory: normal respiratory effort; no respiratory distress, no labored breathing and no retractions Auscultation: no crackles, no rales, no rhonchi and no wheezes Cardiovascular: Rate/Rhythm: regular rate and regular rhythm Heart Sounds: normal S1, normal S2 and + murmur (2/6 systolic ejection murmur) Vessels: no JVD and no carotid bruit Gastrointestinal (Abdomen): Inspection/Auscultation: abdomen normal to inspection and normal bowel sounds; abdomen not distended Percussion/Palpation: abdomen soft; abdomen nontender, no guarding and abdomen not rigid Neurologic: CN's II-XI intact bilaterally and moves all extremities; no focal motor deficits Motor/Sensory: no tremor Psychiatric: A+Ox3, euthymic affect Results & Data ([facility]) Vital Signs (Past 12 Hours) Vital Signs Temp Pulse Pulse Resp BP BP Pulse Ox 06/19/21 11:23 36.4 C L 63 20 86/50 L 95 06/19/21 07:30 85 06/19/21 07:07 36.5 C 87 16 96/50 L 92 06/19/21 03:50 36.7 C 71 18 110/65 96
[2021-06-19] MEDS ORDERED: WARFARIN SOD 2.5 MG TAB PO ONE (16:00)
[2021-06-19] MEDS: WARFARIN SOD 5 MG TAB PO SCH (17:25)
[2021-06-19] MEDS: METOPROLOL SUCC 25MG EXT REL TAB PO SCH (20:26)
[2021-06-20 06:29] LABS: INR 1.6 (0.9-1.1); Prothrombin Time 16.1 Seconds (9.0-12.0)
[2021-06-20 06:40] LABS: BUN Creatinine Ratio 36.2 (10-20); Calcium 8.7 mg/dl (8.5-10.1); Creatinine Clr Calc Pharmacy 26.6 ml/min; Est GFR (African American) 33.3 ml/min; Est GFR (Non-African American) 28.7 ml/min; Potassium 3.5 mmol/L (3.5-5.1)
[2021-06-20] MEDS: TORSEMIDE 10 MG TAB PO SCH (08:10)
[2021-06-20] MEDS: ASPIRIN 81 MG ECTAB PO SCH (08:10)
[2021-06-20] MEDS: POLYETHYLENE (MIRALAX) 17 GM PACK PO PRN (08:10)
[2021-06-20] MEDS: POTASSIUM CHLORIDE CRTAB 20 MEQ TABCR PO SCH (08:13)
[2021-06-20] MEDS: ACETAMINOPHEN 500 MG TAB PO PRN (10:29)
--- NOTE | 2021-06-20 13:03 | Hospitalist Progress Note ---
Date of Service June 20, 2021 Assessment & Plan (1) CHF exacerbation: Plan: (1) Acute on chronic HFrEF (heart failure with reduced ejection fraction): (2) Ischemic cardiomyopathy: (3) Pleural effusion: (1) Acute on chronic HFrEF (heart failure with reduced ejection fraction): (1) Pleural effusion: R (1878 cc)>L (642 cc),2/2 to above, s/p Rt thoracentesis 05/30 (2.2L out), #Lt thora 05/31 w/ 1L serous fluid out. Has underlying ischemic cardiomyopathy with an EF 25% IV diuretics per nephrology with continued dyspnea on exertion. FR 1.5 L daily. Strict Is and Os. Anthony not feasible d/t recent UTI Continue Toprol XL and aspirin. RYLEE/ARB contraindicated in renal disease. Atorvastatin initially held in LFT elevation 2/2 congestive hepatopathy but this has been restarted. Defer diuretic titration to Cardiology and Nephrology teams -->being optimized, pt was hypotensive after midday dose of diuretic Continue Torsemide 40mg daily Pulmonary not recommending Pleurex catheter placement due to risk of infection Status post ICD placement on 06/15/2021 Remains stable following the procedure PT and OT recommended return home with 02/01 care otherwise recommended inpatient rehab to continue physical therapy Denies any significant symptoms but weakness Is hemoglobin noted to be low at 7.2, might be contributing the weakness and he will receive 1 unit of blood transfusion today Has been feeling much better following 1 unit of blood transfusion with hemoglobin went up to 8.7 Remains stable and feeling much better-medically stable to be discharged (2) Acute kidney injury superimposed on chronic kidney disease: Recent increased diuretic use as outpatient prior to hospitalization. Possible etiology also cardiorenal syndrome per nephro. Creatinine stable at 2.37, baseline creat 2.5. No HD per Nephro Continue torsemide 40 mg daily as per nephrology Continue monitor BMP while on diuresis Kidney function remains stable with BUN and creatinine 74/2.43 as of 06/17/2021 Kidney function has been stable at 76/2. 1 1 as of 06/20/2021 (3)Ischemic cardiomyopathy: Presumed per cardiology -> Lexiscan nuclear stress test demonstrated myocardial scar without superimposed ischemia, no benefit to cardiac cath at this time. Plan for BiV pacer/defibrillator placement as inpatient possible this week As above (4) Ventricular tachycardia: Status post ICD placement (5)Atrial fibrillation: Per cardiology, two brief episodes of afib noted 05/19 and . Continue amiodarone, Toprol-XL. Warfarin resumed 05/30; heparin drip as bridge--to stop when INR >1.9, daily pt/inr Spoke to cardiology and will start on started since patient claims for BiV pacer/defibrillator placement possible Monday or Monday Continue to hold warfarin-anticipate procedure Sonnora Edmonds was informed yesterday and agreed with the plan Started on intravenous heparin and has been continued-which are on hold due to hematuria We will try to resume aspirin and heparin this afternoon if hemoglobin remains stable Heparin has been on hold to decrease hemorrhage from the procedure Coumadin has been started-INR is not yet therapeutic-1.5 as of 06/18/2021 Heart rate is controlled-INR remains at 1.4 Will give additional 2.5 mg Coumadin today INR is 1.6 today and will continue with his usual dose of Coumadin Hematuria Likely secondary to catheter induced trauma Will DC Anthony catheter and observe for now We will check CBC around 5 PM and if the hemoglobin remains stable will start intravenous heparin and aspirin as the patient is a very high risk of clot formation No more hematuria (6) Pain of left heel: Recent thrombectomy of his left lower extremity in Mar 2021 after an NSTEMI and bilateral thoracentesis. He is subsequently developed a pressure ulcer that was painful on the left heel. Vascular evaluated and no further interventions needed. Cont medical management of peripheral vascular disease. Stable Advised to avoid any direct pressure on left heel (7) Aortic stenosis: (8) Elevated transaminase level: Likely secondary to congestive hepatopathy, right upper quadrant ultrasound is within normal limits. This is improved and atorvastatin was restarted. (9) Anemia in CKD (chronic kidney disease): Continues on Procrit as outpatient. Received 1 unit PRBC during the hospital course Hemoglobin today 8.6 Continue monitor H&H-hemoglobin went down to 7.2 as of 06/18/2021 He will get 1 unit of blood transfusion with 20 of intravenous Lasix Check CBC tomorrow-hemoglobin is 8.7 (10) UTI (urinary tract infection): 05/20 urine culture positive for E. coli sensitive to cefepime and ceftriaxone. completed antibiotic course- Cefuroxime and Cefdinir (11) DVT prophylaxis: INR 1.5-Coumadin on hold Heparin drip is on hold and Coumadin has been restarted Will go slow with anticoagulation due to recent hematuria and surgery INR remains at 1.5-we will continue Coumadin Will give additional 2.5 mg Coumadin today INR is 1.6 today Full code Disposition Will discharge once medically stable Updated his son yesterday 06/17/2021 and he will be going to [facility] when accepted Admission and Anticipated Discharge Date Admission Date: May 14, 2021 Subjective 06/14/2021 The patient was seen and examined in telemetry unit He complains to have 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 Denies any cardiac symptoms were any shortness of breath at rest He has been waiting to have ICD implanted on of this month 06/15/2021 The patient was seen and examined in telemetry unit He is status post ICD placement Remains very drowsy but denies any significant symptoms 06/16/2021 The patient was seen and examined in telemetry unit He has been doing much better following ICD implantation Generally weak but otherwise no significant symptom 06/17/2021 The patient was seen and examined in telemetry unit He has been feeling much better and complains to have some pain at the site of pacemaker implantation Generally weak but does not have any other symptoms 06/18/2021 The patient was seen and examined in telemetry unit He has been generally weak but denies any chest pain and/or palpitation Denies any shortness of breath at rest He was noted to have a low hemoglobin of 7.2 and will get 1 unit of blood transfusion 06/19/2021 The patient was seen and examined in telemetry unit He has been feeling much better following 1 unit of blood transfusion and the hemoglobin is up at 8.7 His left upper chest wall pain is better Denies any shortness of breath 06/20/2021 The patient was seen and examined in telemetry unit He remains tired but denies any chest pain and/or palpitation or shortness of b reath at rest His left heel pain has improved Review of Systems Review of Systems: All systems reviewed and are unremarkable except as noted below Ear, Nose, Mouth, Throat: Left ear fullness Respiratory: No shortness of breath at rest Cardiovascular: Additional Comments: No chest pain and/or palpitation Physical Exam Physical Exam: Sitting on a chair without any distress Constitutional: well developed, well nourished and + obese; not ill appearing Eyes: PERRL, conjunctivae normal, anicteric sclerae ENMT: external ear and nose normal, oropharynx normal Neck: trachea midline, no thyromegaly Respiratory: no respiratory distress Auscultation: + diminished lung sounds and + crackles (Minimal crackles at the bases) Cardiovascular: Rate/Rhythm: regular rate and regular rhythm; not tachycardic Heart Sounds: normal S1, normal S2 and + murmur (2/6 ESM over precordium) Extremities: no edema Gastrointestinal (Abdomen): Inspection/Auscultation: normal bowel sounds; abdomen not distended Percussion/Palpation: abdomen soft; abdomen nontender Musculoskeletal: Planes left heel pain likely secondary to early pressure sores Neurologic: PERRL, EOMI, accommodation nl, no face palsy, no dysarthria Lymphatic: no cervical or axillary lymphadenopathy Results & Data Results & Data ([facility]) Vital Signs (Past 12 Hours) Vital Signs Temp Pulse Pulse Resp BP BP Pulse Ox 06/20/21 11:34 36.6 C 69 18 100/54 L 98 06/20/21 07:53 36.3 C L 68 18 93/58 L 99 06/20/21 07:15 68 06/20/21 03:36 36.6 C 70 16 97/57 L 95 Laboratory Results [facility] 06/20/21 05:42 Sodium 137 Potassium 3.5 Chloride 103 Carbon Dioxide 27 BUN 76 H Creatinine 2.11 H Glucose 98 Calcium 8.7 Medications Administered Current Inpatient Medications Acetaminophen (Acetaminophen 500 Mg Tab) 1,000 mg PO Q6H PRN PRN Reason: Pain Stop: 07/16/21 09:39 Last Admin: 06/20/21 10:29 Dose: 1,000 mg Documented by: Aspirin (Aspirin 81 Mg Ectab) 81 mg PO QAM [facility] Stop: 07/14/21 17:59 Last Admin: 06/20/21 08:10 Dose: 81 mg Documented by: Gabapentin (Gabapentin 100 Mg Cap) 100 mg PO 1700 PRN PRN Reason: neuropathy pain Stop: 07/06/21 16:59 Last Admin: 06/17/21 08:41 Dose: 100 mg Documented by: Ipratropium [place] (Ipratropium [place] Neb Soln 0.02% 2.5 Ml Vial) 0.5 mg INH Q6R PRN PRN Reason: Shortness Of Breath Or Wheezing Stop: 07/08/21 13:59 Levalbuterol HCl (Levalbuterol 1.25mg/0.5ml Neb) 1.25 mg INH Q6R PRN PRN Reason: Shortness Of Breath Or Wheezing Stop: 07/08/21 13:52 Metoprolol Succinate (Metoprolol Succ 25mg Ext Rel Tab) 12.5 mg PO PM [facility] Stop: 06/29/21 20:59 Last Admin: 06/19/21 20:26 Dose: 12.5 mg Documented by: Polyethylene Glycol (Polyethylene (Miralax) 17 Gm Pack) 17 gm PO DAILY PRN PRN Reason: Constipation Stop: 07/19/21 07:30 Last Admin: 06/20/21 08:10 Dose: 17 gm Documented by: Potassium Chloride (Potassium Chloride Crtab 20 Meq Tabcr) 40 meq PO DAILY [facility] Stop: 07/09/21 08:59 Last Admin: 06/20/21 08:13 Dose: 40 meq Documented by: Torsemide (Torsemide 10 Mg Tab) 40 mg PO QAM [facility] Stop: 07/08/21 10:59 Last Admin: 06/20/21 08:10 Dose: 40 mg Documented by: Warfarin Sodium (Warfarin Sod 5 Mg Tab) 5 mg PO DAILY@1600 [facility] Stop: 07/18/21 15:59 Last Admin: 06/19/21 17:25 Dose: 5 mg Documented by:
[2021-06-20] MEDS: WARFARIN SOD 5 MG TAB PO SCH (17:12)
[2021-06-20] MEDS: METOPROLOL SUCC 25MG EXT REL TAB PO SCH (20:47)
[2021-06-21] MEDS: ACETAMINOPHEN 500 MG TAB PO PRN (00:09)
[2021-06-21] MEDS: POTASSIUM CHLORIDE CRTAB 20 MEQ TABCR PO SCH (09:10)
[2021-06-21] MEDS: ASPIRIN 81 MG ECTAB PO SCH (09:10)
[2021-06-21] MEDS: TORSEMIDE 10 MG TAB PO SCH (09:11)
--- NOTE | 2021-06-21 10:52 | Cardiology Progress Note ---
Date of Service June 21, 2021 Assessment & Plan (1) Chronic heart failure with reduced ejection fraction and diastolic d ysfunction: (2) Cardiomyopathy: (3) LBBB (left bundle branch block): (4) Cardiorenal syndrome with renal failure: (5) Aortic stenosis, moderate: (6) Anemia in CKD (chronic kidney disease): (7) Paroxysmal atrial fibrillation: Plan: Continue metoprolol, aspirin, torsemide, and potassium chloride Dose Coumadin daily for goal INR of 2.0-3.0; Subcu heparin and/or molecular weight heparin avoided due to recent device implantation. [facility] on 06/24/2021 @ 11:30 AM [facility] Appointment shortly after discharge from [facility]. Repeat resting echocardiography in early September 2021 Admission and Anticipated Discharge Date Admission Date: May 14, 2021 Supervising Physician Co-Signing Physician Notes Attending Addendum: Supervising Physician Attestation: I have personally performed a history and physical examination on the patient. I agree with the physician dietitian assistant's findings and plan as documented with the following additions. Subjective: Pt without acute complaint other than left heal pain. Left heal appearance stable. Exam: Dressing removed from device pocket. Incision , clean dry and intact, no erythema, no hematoma. Data: 06/21/21 INR 2.3 Assessment and Plan: As noted above. -as noted, dressing removed from ICD site. Keep device follow up visit. Activity recommendations already added to DC instructions by Dr Piña with regards to his device. OK to shower. Maged Alatorre, Subjective Patient seen and examined. Chart, medications, and telemetry reviewed. Status post 06/15/2021 biventricular pacemaker ICD implantation by Dr. Ojeda. Notes walking around the hallway last night after dinner with his son without difficulty Urinating on his own BM last night, the first in 3-4 days Didn't sleep too well last night because of left heel pain, right lower extremity neuropathy No chest pain. Stable exertional dyspnea, without orthopnea, PND, or peripheral edema. No fevers or rigors. Telemetry: Paced in the 70's. No arrhythmias. INR 1.6 on 06/20/2021 No AM labs available for review today Anticipates discharge to [facility] late this afternoon. Review of Systems Review of Systems: Complete Review of Systems is as stated above, negative, or noncontributory. Physical Exam Physical Exam: General: A&Ox3. NAD. HENT: Normocephalic. Atraumatic. Eyes: PER. Conjunctiva pink, sclera clear. Neck: No JVD. No HJR. Chest: The left subclavian dressing was not removed. No significant hematoma appreciated. Heart: Regular, paced at 70 bpm. Grade II/ systolic murmur. No diastolic murmur. No rub. Lungs: Absent breath sounds at the bases. Clear to auscultation. Abdomen: +BS. Soft. Nontender. No masses or organomegaly. Extremities: No clubbing, cyanosis, or edema. Limited neurological examination is without focal deficits. Pulses: radial=2/4, posterior tibial=0/4. Results & Data ([facility]) Vital Signs (Past 12 Hours) Vital Signs Temp Pulse Pulse Resp BP Pulse Ox 06/21/21 07:08 36.7 C 70 20 91/50 L 95 06/20/21 23:00 73 06/20/21 22:59 36.6 C 74 16 94/52 L 98
--- NOTE | 2021-06-21 11:04 | Hospitalist Progress Note ---
Date of Service June 21, 2021 Assessment & Plan (1) CHF exacerbation: Plan: (1) Acute on chronic HFrEF (heart failure with reduced ejection fraction): (2) Ischemic cardiomyopathy: (3) Pleural effusion: (1) Acute on chronic HFrEF (heart failure with reduced ejection fraction): (1) Pleural effusion: R (1878 cc)>L (642 cc),2/2 to above, s/p Rt thoracentesis 05/30 (2.2L out), #Lt thora 05/31 w/ 1L serous fluid out. Has underlying ischemic cardiomyopathy with an EF 25% IV diuretics per nephrology with continued dyspnea on exertion. FR 1.5 L daily. Strict Is and Os. Anthony not feasible d/t recent UTI Continue Toprol XL and aspirin. RYLEE/ARB contraindicated in renal disease. Atorvastatin initially held in LFT elevation 2/2 congestive hepatopathy but this has been restarted. Defer diuretic titration to Cardiology and Nephrology teams -->being optimized, pt was hypotensive after midday dose of diuretic Continue Torsemide 40mg daily Pulmonary not recommending Pleurex catheter placement due to risk of infection Status post ICD placement on 06/15/2021 Remains stable following the procedure PT and OT recommended return home with 02/01 care otherwise recommended inpatient rehab to continue physical therapy Denies any significant symptoms but weakness Is hemoglobin noted to be low at 7.2, might be contributing the weakness and he will receive 1 unit of blood transfusion today Has been feeling much better following 1 unit of blood transfusion with hemoglobin went up to 8.7 Remains stable and feeling much better-medically stable to be discharged He will be discharged to [facility] at around 2 PM today (2) Acute kidney injury superimposed on chronic kidney disease: Recent increased diuretic use as outpatient prior to hospitalization. Possible etiology also cardiorenal syndrome per nephro. Creatinine stable at 2.37, baseline creat 2.5. No HD per Nephro Continue torsemide 40 mg daily as per nephrology Continue monitor BMP while on diuresis Kidney function remains stable with BUN and creatinine 74/2.43 as of 06/17/2021 Kidney function has been stable at 76/2. 1 1 as of 06/20/2021 (3)Ischemic cardiomyopathy: Presumed per cardiology -> Lexiscan nuclear stress test demonstrated myocardial scar without superimposed ischemia, no benefit to cardiac cath at this time. Plan for BiV pacer/defibrillator placement as inpatient possible this week As above (4) Ventricular tachycardia: Status post ICD placement (5)Atrial fibrillation: Per cardiology, two brief episodes of afib noted 05/19 and . Continue amiodarone, Toprol-XL. Warfarin resumed 05/30; heparin drip as bridge--to stop when INR >1.9, daily pt/inr Spoke to cardiology and will start on started since patient claims for BiV pacer/defibrillator placement possible Monday or Monday Continue to hold warfarin-anticipate procedure Sonnora Edmonds was informed yesterday and agreed with the plan Started on intravenous heparin and has been continued-which are on hold due to hematuria We will try to resume aspirin and heparin this afternoon if hemoglobin remains stable Heparin has been on hold to decrease hemorrhage from the procedure Coumadin has been started-INR is not yet therapeutic-1.5 as of 06/18/2021 Heart rate is controlled-INR remains at 1.4 Will give additional 2.5 mg Coumadin today INR is 1.6 today and will continue with his usual dose of Coumadin We will check INR today and continue Coumadin Hematuria Likely secondary to catheter induced trauma Will DC Anthony catheter and observe for now We will check CBC around 5 PM and if the hemoglobin remains stable will start intravenous heparin and aspirin as the patient is a very high risk of clot formation No more hematuria (6) Pain of left heel: Recent thrombectomy of his left lower extremity in Mar 2021 after an NSTEMI and bilateral thoracentesis. He is subsequently developed a pressure ulcer that was painful on the left heel. Vascular evaluated and no further interventions needed. Cont medical management of peripheral vascular disease. Stable Advised to avoid any direct pressure on left heel (7) Aortic stenosis: (8) Elevated transaminase level: Likely secondary to congestive hepatopathy, right upper quadrant ultrasound is within normal limits. This is improved and atorvastatin was restarted. (9) Anemia in CKD (chronic kidney disease): Continues on Procrit as outpatient. Received 1 unit PRBC during the hospital course Hemoglobin today 8.6 Continue monitor H&H-hemoglobin went down to 7.2 as of 06/18/2021 He will get 1 unit of blood transfusion with 20 of intravenous Lasix Check CBC tomorrow-hemoglobin is 8.7 We will check hemoglobin today (10) UTI (urinary tract infection): 12/9 urine culture positive for E. coli sensitive to cefepime and ceftriaxone. completed antibiotic course- Cefuroxime and Cefdinir (11) DVT prophylaxis: INR 1.5-Coumadin on hold Heparin drip is on hold and Coumadin has been restarted Will go slow with anticoagulation due to recent hematuria and surgery INR remains at 1.5-we will continue Coumadin Will give additional 2.5 mg Coumadin today INR is 1.6 today-continue Coumadin Full code Disposition Will discharge once medically stable Updated his son yesterday 06/17/2021 and he will be going to [facility] when accepted Will be transferred to [facility] this afternoon Admission and Anticipated Discharge Date Admission Date: May 14, 2021 Subjective 06/14/2021 The patient was seen and examined in telemetry unit He complains to have 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 Denies any cardiac symptoms were any shortness of breath at rest He has been waiting to have ICD implanted on fifth of this month 06/15/2021 The patient was seen and examined in telemetry unit He is status post ICD placement Remains very drowsy but denies any significant symptoms 06/16/2021 The patient was seen and examined in telemetry unit He has been doing much better following ICD implantation Generally weak but otherwise no significant symptom 06/17/2021 The patient was seen and examined in telemetry unit He has been feeling much better and complains to have some pain at the site of pacemaker implantation Generally weak but does not have any other symptoms 06/18/2021 The patient was seen and examined in telemetry unit He has been generally weak but denies any chest pain and/or palpitation Denies any shortness of breath at rest He was noted to have a low hemoglobin of 7.2 and will get 1 unit of blood transfusion 06/19/2021 The patient was seen and examined in telemetry unit He has been feeling much better following 1 unit of blood transfusion and the hemoglobin is up at 8.7 His left upper chest wall pain is better Denies any shortness of breath 06/20/2021 The patient was seen and examined in telemetry unit He remains tired but denies any chest pain and/or palpitation or shortness of breath at rest His left heel pain has improved 06/21/2021 The patient was seen and examined in medical telemetry unit He has been feeling much better and denies any symptoms today No chest pain, palpitation or shortness of breath Weakness has improved a lot Review of Systems Review of Systems: All systems reviewed and are unremarkable except as noted below Ear, Nose, Mouth, Throat: Left ear fullness-resolved Respiratory: No shortness of breath at rest Cardiovascular: Additional Comments: No chest pain and/or palpitation Physical Exam Physical Exam: Lying in bed without any acute distress Constitutional: well developed, well nourished and + obese; not ill appearing Eyes: PERRL, conjunctivae normal, anicteric sclerae ENMT: external ear and nose normal, oropharynx normal Neck: trachea midline, no thyromegaly Respiratory: no respiratory distress Auscultation: + diminished lung sounds and + crackles (Minimal crackles at the bases) Cardiovascular: Rate/Rhythm: regular rate and regular rhythm; not tachycardic Heart Sounds: normal S1, normal S2 and + murmur (2/6 ESM over precordium) Extremities: no edema Gastrointestinal (Abdomen): Inspection/Auscultation: normal bowel sounds; abdomen not distended Percussion/Palpation: abdomen soft; abdomen nontender Musculoskeletal: No acute arthritis in any joint Neurologic: PERRL, EOMI, accommodation nl, no face palsy, no dysarthria Lymphatic: no cervical or axillary lymphadenopathy Results & Data Results & Data ([facility]) Vital Signs (Past 12 Hours) Vital Signs Temp Pulse Pulse Resp BP Pulse Ox 06/21/21 07:08 36.7 C 70 20 91/50 L 95 06/20/21 23:00 73 06/20/21 22:59 36.6 C 74 16 94/52 L 98 Medications Administered Current Inpatient Medications Acetaminophen (Acetaminophen 500 Mg Tab) 1,000 mg PO Q6H PRN PRN Reason: Pain Stop: 07/16/21 09:39 Last Admin: 06/21/21 00:09 Dose: 1,000 mg Documented by: Aspirin (Aspirin 81 Mg Ectab) 81 mg PO QAM ABAD Stop: 07/14/21 17:59 Last Admin: 06/21/21 09:10 Dose: 81 mg Documented by: Gabapentin (Gabapentin 100 Mg Cap) 100 mg PO 1700 PRN PRN Reason: neuropathy pain Stop: 07/06/21 16:59 Last Admin: 06/17/21 08:41 Dose: 100 mg Documented by: Ipratropium Kermit (Ipratropium Kermit Neb Soln 0.02% 2.5 Ml Vial) 0.5 mg INH Q6R PRN PRN Reason: Shortness Of Breath Or Wheezing Stop: 07/08/21 13:59 Levalbuterol HCl (Levalbuterol 1.25mg/0.5ml Neb) 1.25 mg INH Q6R PRN PRN Reason: Shortness Of Breath Or Wheezing Stop: 07/08/21 13:52 Metoprolol Succinate (Metoprolol Succ 25mg Ext Rel Tab) 12.5 mg PO PM [facility] Stop: 06/29/21 20:59 Last Admin: 06/20/21 20:47 Dose: Not Given Documented by: Polyethylene Glycol (Polyethylene (Miralax) 17 Gm Pack) 17 gm PO DAILY PRN PRN Reason: Constipation Stop: 07/19/21 07:30 Last Admin: 06/20/21 08:10 Dose: 17 gm Documented by: Potassium Chloride (Potassium Chloride Crtab 20 Meq Tabcr) 40 meq PO DAILY [facility] Stop: 07/09/21 08:59 Last Admin: 06/21/21 09:10 Dose: 40 meq Documented by: Torsemide (Torsemide 10 Mg Tab) 40 mg PO QAM [facility] Stop: 07/08/21 10:59 Last Admin: 06/21/21 09:11 Dose: 40 mg Documented by: Warfarin Sodium (Warfarin Sod 5 Mg Tab) 5 mg PO DAILY@1600 [facility] Stop: 07/18/21 15:59 Last Admin: 06/20/21 17:12 Dose: 5 mg Documented by:
--- NOTE | 2021-06-21 11:37 | Nephrology Progress Note ---
Date of Service June 21, 2021 Assessment & Plan Admission and Anticipated Discharge Date Admission Date: May 14, 2021 Subjective Assessment & Plan (1) CKD (chronic kidney disease) stage 4, GFR 15-29 ml/min: Plan: at baseline currently and for several days; has had this admission recurrent acute kidney injury on CKD4 due to cardiorenal syndrome. Baseline creatinine of 2.5. Admission creatinine of 3.8 and plateau'd at about 2.6 for several days; creatinine down to 2.2 > ? if will improve after pacer. Potassium and other chemistries ok - Continue with torsemide 40 daily. - replace potassium as needed; continue 40 mEq daily K dose for now -cont 1.5L FR; have stopped dialysis diet -Monitor input output - needs I/O best we can (2) Acute decompensated heart failure: Plan: Patient with a low EF of 25% and pulmonary hypertension. s/p pacer placement 06/15/21, after appropriate medical tx window/optimization -diuretics as above Continue fluid limit 1.5 L daily (in general he takes in less than 1 L); continue less than 2 g daily sodium diet (3) Anemia due to chronic disease treated with erythropoietin: Plan: Patient received Procrit 20k units on 05/26, 06/09, 06/14, 06/16. We will continue to monitor and give Procrit as needed; minimal response and maximal dosing >low threshold to transfuse and would give lasix 40 mg IV if doing so -eval for cause in hgb drop after stable several days Discharge recommendations to rehab: 1 BMP and Mag 2 times a week. 2 CBC 2 times a week. Give Aranesp 150 mcg weekly while there. Will need to see his video coordinator Dr Armenta after discharge from there. 3 Demadex 40 daily. try not to hold for non symptomatic Low BP. 4 f/u Dr Keyes nephrology in 1 week after discharge Subjective Walked hallways no worsening sob. foot still sore but better Review of Systems Review of Systems: All systems reviewed & are unremarkable except as noted in Subjective Physical Exam Constitutional: well developed and well nourished; no acute distress Eyes: EOM intact bilaterally ENMT: Ears: no external ear abnormality Nose: no external nose abnormality Mouth: + dry oral mucous membranes Neck: no nuchal rigidity Respiratory: normal respiratory effort; no respiratory distress Auscultation: + diminished lung sounds Cardiovascular: Rate/Rhythm: regular rate and regular rhythm Extremities: no edema Gastrointestinal (Abdomen): Inspection/Auscultation: normal bowel sounds Percussion/Palpation: abdomen soft; abdomen nontender Musculoskeletal: Extremities: strength 5/5 throughout Skin: no rashes, warm and dry Psychiatric: Orientation: alert and oriented x 3 Affect: + anxious affect Insight: + limited insight Judgement: + limited judgement Results & Data ([facility]) Vital Signs (Past 12 Hours) Vital Signs Temp Pulse Resp BP Pulse Ox 06/21/21 11:15 36.5 C 70 20 87/52 L 96 06/21/21 07:08 36.7 C 70 20 91/50 L 95
[2021-06-21 11:38] LABS: Hematocrit (blood only) 25.3 % (42-52); Hemoglobin 8.2 g/dL (14.0-18.0); Mean Corpuscular Hemoglobin 35.8 pg (25-34); Mean Corpuscular Hgb Conc 32.4 g/dL (32-36); Mean Corpuscular Volume 110.5 fL (80-100); Mean Platelet Volume 8.9 fL (7.4-10.4); Platelet Count 272 K/uL (130-400); Red Blood Count 2.29 M/uL (4.7-6.1); White Blood Count 5.58 K/uL (4.8-10.8)
[2021-06-21 11:41] LABS: INR 2.3 (0.9-1.1); Prothrombin Time 21.9 Seconds (9.0-12.0)
[2021-06-21 11:59] LABS: Basophils # (auto) 0.03 K/uL (0-0.2); Basophils % (auto) 0.5 %; Eosinophils # (auto) 0.19 K/uL (0-0.5); Eosinophils % (auto) 3.4 %; Immature Granulocytes # (auto) 0.01 K/uL (0.00-0.02); Immature Granulocytes % (auto) 0.2 %; Lymphocytes # (auto) 3.24 K/uL (1.2-3.4); Lymphocytes % (auto) 58.1 %; Monocytes # (auto) 0.45 K/uL (0.11-0.59); Monocytes % (auto) 8.1 %; Neutrophils # (auto) 1.66 K/uL (1.4-6.5); Neutrophils % (auto) 29.7 %
[2021-06-21 12:00] LABS: Anisocytosis Present; Macrocytosis Present
--- NOTE | 2021-06-22 08:14 | Discharge Summary ---
Date of Service June 22, 2021 Admission HPI Per Admitting Provider DICTATED BY:Brad España MD DATE OF ADMISSION: 05/14/2021. CHIEF COMPLAINT: Shortness of breath. 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 The patient was admitted in the end of February for acute respiratory failure and non-ST elevated KS and CHF. Had bilateral thoracocentesis showing transudate. Echo showed EF of 20% to 25%, grade 2 diastolic dysfunction, moderate mitral regurgitation, and he also had new-onset atrial fibrillation treated with metoprolol and amiodarone. Started on IV heparin, discharged on Coumadin. He also had left leg arterial embolism, had thrombectomy with vascular surgery on 03/12/2021, on medical management, on aspirin and Coumadin. At discharge, as per the patient, he followed up with nephrology, was taking torsemide 40 mg b.i.d., but he was not tolerating it well and it was cut back to 40 mg daily. He says all the medications messed him up and he was not feeling well and was not sleeping well, and his legs were getting swollen again. He saw cardiology today for close followup and he was getting more short of breath, walking 10 to 15 feet making him short of breath. He had worsening symptoms and weakness, and increasing lower extremity edema. The patient also had labs done today which are showing worsening renal function and elevated LFTs, and he was advised to come to the hospital for further treatment and workup. Currently, the patient is resting comfortably and hemodynamically stable. Denies any headache. No blurred vision. Once in a while dizzy, once in a while runny nose. No sore throat. Appetite is down, not eating or drinking much. No difficulty swallowing. No chest pain. No nausea, no abdominal pain. Bowels are not regul ar since he is not eating and drinking much, micturating okay. Received a dose of IV Lasix 60mg in the ER, he says that has brought swelling of the legs down. Ambulates with a cane. Lives with his significant other. Denies any fever or chills. No cough. Admission Exam Per Admitting Provider GENERAL: The patient is of moderate build, not in acute distress. VITAL SIGNS: Temperature 36.3, pulse 74, respiratory rate 13, blood pressure 107/71, oxygen 97% on room air. HEENT: Pupils equal, round and reactive to light. Oral mucosa moist. NECK: No JVD. No neck masses. CARDIOVASCULAR: S1 and S2 heard. Regular rate and rhythm, ejection systolic murmur in aortic area heard. RESPIRATORY SYSTEM: Normal AP diameter. No accessory muscle use. Mild bibasilar crackles. No wheezing. ABDOMEN: Soft, bowel sounds present, nontender, no distention. CENTRAL NERVOUS SYSTEM: Alert and oriented x3. Speech is clear. No facial droop. Insight is good. Moves extremities. Obeys simple commands. EXTREMITIES: Bilateral lower extremity gross edema present, no erythema seen. Principal Diagnosis Acute on chronic heart failure with reduced EF, ischemic cardiomyopathy status post ICD placement, acute on chronic kidney disease, atrial fibrillation Discharge Exam Lying in bed without any acute distress Constitutional well developed, well nourished and + obese; not ill appearing Eyes PERRL, conjunctivae normal, anicteric sclerae ENMT external ear and nose normal, oropharynx normal Neck trachea midline, no thyromegaly Respiratory no respiratory distress Auscultation: + diminished lung sounds and + crackles (Minimal crackles at the bases) Cardiovascular Rate/Rhythm: regular rate and regular rhythm; not tachycardic Heart Sounds: normal S1, normal S2 and + murmur (2/6 ESM over precordium) Extremities: no edema Gastrointestinal (Abdomen) Inspection/Auscultation: normal bowel sounds; abdomen not distended Percussion/Palpation: abdomen soft; abdomen nontender Neurologic PERRL, EOMI, accommodation nl, no face palsy, no dysarthria Lymphatic no cervical or axillary lymphadenopathy Discharge Data Allergies Allergy/AdvReac Type Severity Reaction Status Date / Time RYLEE Inhibitors AdvReac Intermediate Renal Verified 05/14/21 18:29 Complications Consultations 05/14/21 19:10 ED Decision to Admit Stat 05/15/21 08:00 Consult Cardiology Routine Consult Nephrology Routine 05/16/21 21:36 Consult Vascular Surgery Routine 05/29/21 13:41 Consult Palliative Care Routine 06/07/21 08:53 Consult Pulmonology Routine Procedures Performed Operation Date: 06/15/21 07:57 Actual Procedures p ICD Insertion Single or Dual - Marita Ojeda DO s Lead LV (No Priopr Implant) - Marita Ojeda DO s Venogram, Unilateral - Marita Ojeda DO Ordered Studies 05/15/21 09:38 US liver Urgent 05/17/21 13:00 US arterial duplex LE BI Routine 05/26/21 11:30 US effusion-chest/mediastinum Routine 05/30/21 10:55 US point of care ultrasound Routine 05/31/21 10:21 US point of care ultrasound Routine 06/15/21 08:30 EP Lab Images for PACS ONCE Hospital Course (1) CHF exacerbation: (1) Acute on chronic HFrEF (heart failure with reduced ejection fraction): (2) Ischemic cardiomyopathy: (3) Pleural effusion: (1) Acute on chronic HFrEF (heart failure with reduced ejection fraction): (1) Pleural effusion: R (1878 cc)>L (642 cc),2/2 to above, s/p Rt thoracentesis 05/30 (2.2L out), #Lt thora 05/31 w/ 1L serous fluid out. Has underlying ischemic cardiomyopathy with an EF 25% IV diuretics per nephrology with continued dyspnea on exertion. FR 1.5 L daily. Strict Is and Os. Anthony not feasible d/t recent UTI Continue Toprol XL and aspirin. RYLEE/ARB contraindicated in renal disease. Atorvastatin initially held in LFT elevation 2/2 congestive hepatopathy but this has been restarted. Defer diuretic titration to Cardiology and Nephrology teams -->being optimized, pt was hypotensive after midday dose of diuretic Continue Torsemide 40mg daily Pulmonary not recommending Pleurex catheter placement due to risk of infection Status post ICD placement on 06/15/2021 Remains stable following the procedure PT and OT recommended return home with 24/7 care otherwise recommended inpatient rehab to continue physical therapy Denies any significant symptoms but weakness Is hemoglobin noted to be low at 7.2, might be contributing the weakness and he will receive 1 unit of blood transfusion today Has been feeling much better following 1 unit of blood transfusion with hemoglobin went up to 8.7 Remains stable and feeling much better-medically stable to be discharged He will be discharged to [facility] at around 2 PM today (2) Acute kidney injury superimposed on chronic kidney disease: Recent increased diuretic use as outpatient prior to hospitalization. Possible etiology also cardiorenal syndrome per nephro. Creatinine stable at 2.37, baseline creat 2.5. No HD per Nephro Continue torsemide 40 mg daily as per nephrology Continue monitor BMP while on diuresis Kidney function remains stable with BUN and creatinine 74/2.43 as of 06/17/2021 Kidney function has been stable at 76/2. 1 1 as of 06/20/2021 (3)Ischemic cardiomyopathy: Presumed per cardiology -> Lexiscan nuclear stress test demonstrated myocardial scar without superimposed ischemia, no benefit to cardiac cath at this time. Plan for BiV pacer/defibrillator placement as inpatient possible this week As above (4) Ventricular tachycardia: Status post ICD placement (5)Atrial fibrillation: Per cardiology, two brief episodes of afib noted 05/19 and . Continue amiodarone, Toprol-XL. Warfarin resumed 05/30; heparin drip as bridge--to stop when INR >1.9, daily pt/inr Spoke to cardiology and will start on started since patient claims for BiV pacer/defibrillator placement possible Monday or Monday Continue to hold warfarin-anticipate procedure Sonnora Edmonds was informed yesterday and agreed with the plan Started on intravenous heparin and has been continued-which are on hold due to hematuria We will try to resume aspirin and heparin this afternoon if hemoglobin remains stable Heparin has been on hold to decrease hemorrhage from the procedure Coumadin has been started-INR is not yet therapeutic-1.5 as of 06/18/2021 Heart rate is controlled-INR remains at 1.4 Will give additional 2.5 mg Coumadin today INR is 1.6 today and will continue with his usual dose of Coumadin We will check INR today and continue Coumadin Hematuria Likely secondary to catheter induced trauma Will DC Anthony catheter and observe for now We will check CBC around 5 PM and if the hemoglobin remains stable will start intravenous heparin and aspirin as the patient is a very high risk of clot formation No more hematuria (6) Pain of left heel: Recent thrombectomy of his left lower extremity in Mar 2021 after an NSTEMI and bilateral thoracentesis. He is subsequently developed a pressure ulcer that was painful on the left heel. Vascular evaluated and no further interventions needed. Cont medical management of peripheral vascular disease. Stable Advised to avoid any direct pressure on left heel (7) Aortic stenosis: (8) Elevated transaminase level: Likely secondary to congestive hepatopathy, right upper quadrant ultrasound is within normal limits. This is improved and atorvastatin was restarted. (9) Anemia in CKD (chronic kidney disease): Continues on Procrit as outpatient. Received 1 unit PRBC during the hospital course Hemoglobin today 8.6 Continue monitor H&H-hemoglobin went down to 7.2 as of 06/18/2021 He will get 1 unit of blood transfusion with 20 of intravenous Lasix Check CBC tomorrow-hemoglobin is 8.7 We will check hemoglobin today (10) UTI (urinary tract infection): 05/20 urine culture positive for E. coli sensitive to cefepime and ceftriaxone. completed antibiotic course- Cefuroxime and Cefdinir (11) DVT prophylaxis: INR 1.5-Coumadin on hold Heparin drip is on hold and Coumadin has been restarted Will go slow with anticoagulation due to recent hematuria and surgery INR remains at 1.5-we will continue Coumadin Will give additional 2.5 mg Coumadin today INR is 1.6 today-continue Coumadin Full code Disposition Will discharge once medically stable Updated his son yesterday 06/17/2021 and he will be going to [facility] when accepted Will be transferred to [facility] this afternoon Total Time Total Time Spent Total Time Spent (In Minutes): 40 minutes Discharge Plan Discharge Items Patient Disposition: Transfer Inpatient Rehab Fac Reason For Visit: SOB Discharge Diagnosis: Acute on chronic heart failure with reduced EF, ischemic cardiomyopathy status post ICD placement, acute on chronic kidney disease, atrial fibrillation Condition on Discharge: Fair Activity: As commented below Activity Comment: do not raise the left elbow over the left shoulder for 1 month Lifting: No more than 10 pounds Lifting Comment: do not lift more than 10 pounds with the left arm for 2 weeks Bathing: Keep incision dry Bathing Comment: Dressing removed 06/21/[address] Alatorre. OK to shower. Non-emergency contact: Primary Care Provider Call non-emergency contact if: you have any medication questions and your sym ptoms worsen Follow-up/Referrals: Michelle Pichardo MD [Physician] - (Date & Time 07/15/2021 2:20 PM Provider Michelle Pichardo MD Department Nephrology 2nd Floor, [place] ) Everton Healy, [Primary Care Provider] - ( ) Diet: Heart Healthy and Low Sodium (2gm) Fluids: 1500ml (6 cups) Diet Texture: Easy to Chew Addtl Attending Provider Instructions: Device and wound check as scheduled next week at [facility] cardiology on 06/24/2021 at 11:15apm If you notice any swelling at the wound site call [facility] Cardiology immediately Please take precautions to avoid falls Addtl Chief Architect Provider Instructions: Nephrology instruction: 1 BMP and Mag 2 times a week. 2 CBC 2 times a week. Give Aranesp 150 mcg weekly while there. 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 3 Demadex 40 daily. try not to hold for non symptomatic Low BP. 4 f/u Dr Pichardo nephrology in 1 week after discharge Pending Studies at Discharge: No Stand-Alone Forms: My [facility] Skilled Items Patient informed of condition?: Yes DNR: No Discharge Level of Care: Acute rehab Communicable Disease: No Discharge Prognosis: Stable Lines: None Urinary Catheter: No Medications and DC Order Prescriptions: New potassium chloride 20 mEq Tablet,Er Particles/Crystals 40 meq PO DAILY Qty: 60 RF: 0 warfarin 5 mg Tablet 5 mg PO DAILY@1600 30 Days Qty: 30 RF: 0 gabapentin 100 mg Capsule 100 mg PO 1700 PRN (Reason: pain) 30 Days Qty: 30 RF: 0 metoprolol succinate 25 mg Tablet Extended Release 24 Hr 12.5 mg PO PM 30 Days Qty: 15 RF: 0 Continued cyanocobalamin (vitamin B-12) [Vitamin B-12] 1,000 mcg Tablet 1,000 mcg PO DAILY RF: 0 triamcinolone acetonide 0.1 % ointment 1 applic TOPICAL HS PRN (Reason: Rash) RF: 0 pyridoxine (vitamin B6) [Vitamin B-6] 100 mg Tablet 100 mg PO BID RF: 0 fluticasone propionate 50 mcg/actuation [place],Suspension 1 spray INTRANASAL DAILY RF: 0 cholecalciferol (vitamin D3) [Vitamin D3] 25 mcg (1,000 unit) Tablet 25 mcg PO DAILY RF: 0 levothyroxine 75 mcg tablet 75 mcg PO DAILYBB RF: 0 Procrit 40,000 unit/mL Solution 40,000 unit subcut DIRECTED RF: 0 azelastine 137 mcg (0.1 %) aerosol,spray 2 spray INTRANASAL BID RF: 0 aspirin 81 mg Tablet,Delayed Release (Dr/Ec) 81 mg PO QAM Qty: 30 RF: 0 torsemide 20 mg tablet 40 mg PO DAILY RF: 0 amiodarone 200 mg tablet 200 mg PO DAILY RF: 0 atorvastatin 40 mg tablet 40 mg PO HS RF: 0 Discontinued metoprolol succinate 25 mg tablet extended release 24 hr 25 mg PO DAILY RF: 0 warfarin 2 mg tablet 1 - 2 mg PO UD RF: 0 Discharge Orders: Discharge Order (Routine); Ordered 06/21/21 Ordered By: Katrina Barrow Admission Data Admit Date/Time: 05/14/21 20:42 Attending Provider: Katrina Barrow Admit Provider: Brad España Primary Care Provider: Everton Healy Other Providers: [employer],[facility] ; Sowmya Bishop ; Chantel Spaulding Robin A. ; [facility] ; Nicolas Landeros ; Mark Lemus ; Yani Garcia ; Javier Crawford ; Umm Narvaez ; Federico Montague
--- NOTE | 2021-06-22 16:20 | Operative Report (OR) ---
DATE OF PROCEDURE: 06/15/2021 PREOPERATIVE DIAGNOSES: Ischemic cardiomyopathy, left bundle branch block, chronic heart failure, Ne w York Heart Association class III. POSTOPERATIVE DIAGNOSES: Ischemic cardiomyopathy, left bundle branch block, chronic heart failure, N ew York Heart Association class III. PROCEDURE: Biventricular rate responsive implantable cardiac defibrillator with intracardiac electro gram His bundle recording and peripheral venogram. SURGEON: Marita Ojeda DO. WHITE KID BUFFER: None. ANESTHESIA: Monitored conscious sedation administered under my supervision by Elaine Powell. Start time 8:44, end time 10:10. A total of 5 mg of Versed and 100 mcg of fentanyl. INTRAVENOUS FLUIDS: 60 mL. CONTRAST: 14 mL. ANTIBIOTICS: 1 g of Ancef. BLOOD LOSS: 30 mL. URINE OUTPUT: Not applicable. SPECIMENS: None. FINDINGS: See below. DRAINS: None. INDICATIONS: This is an 81-year-old gentleman with a past medical history for ischemic cardiomyopath y, ejection fraction 25% with a large LAD scar on echocardiogram, chronic heart failure with reduced ejection fraction, [place] Heart Association class III, left bundle branch block, moderate aortic st enosis, paroxysmal atrial fibrillation, started on anticoagulation and myelodysplastic syndrome. The patient has had a prolonged hospital stay due to acute congestive heart failure along with recurrent pleural effusions and was recommended a BiV ICD prior to discharge. CONSENT: Consent was obtained prior to the patient going into electrophysiology lab. The patient wa s informed of the risks, benefits, and alternatives to the procedure. Risks include, but not limited to, sudden cardiac , cardiac arrhythmias, cerebrovascular accident, myocardial infarction, inju ry to blood vessels, chamber of the heart and lung, bleeding and infection. The patient understood t hese risks and agreed to the procedure as planned. Informed consent was obtained. DESCRIPTION OF PROCEDURE: The patient was brought into electrophysiology lab in a fasting state. He was connected to continuous cardiac monitoring. A time-out was performed to ensure the patient's id entity and the procedure correctly. He was prepped and draped over the left infraclavicular space in normal surgical standard fashion. Monitored conscious sedation was given throughout the procedure f or patient's comfort level. [place] precautions were maintained throughout the procedure. He rece ived prophylactic antibiotics prior to incision. 10 mL of 1% lidocaine-bupivacaine mixture were given in the left deltopectoral groove. An incision w as made in the left deltopectoral groove. Blunt dissection was performed down to the pectoralis musc le. Then, a defibrillator pocket was created using blunt dissection over the pectoralis muscle withi n the pectoralis fascia, then a peripheral venogram was performed to identify the axillary vein. Genaro ous axillary access was obtained on a needlestick in 2 separate manners. In the more lateral stick, a 7-Mauritian sheath was inserted over the guidewire, then the dilator was removed and a second guidewir e was inserted through the sheath to allow for retained venous access. Then, the sheath was removed and a 9.5-Mauritian sheath was inserted over one of the guidewires through the more lateral stick. The guidewire and dilator were removed and the right ventricular defibrillat or lead was advanced into right ventricle, positioned into the right ventricular apex under fluorosco pic guidance. There was adequate pacing and sensing thresholds and no diaphragmatic stimulation with high output pacing. The 9.5-Mauritian sheath was peeled away and the lead was fixated to pectoralis mu scle using 0 silk suture. A 7-Mauritian sheath was inserted over the guidewire through the more medial stick. The guidewire and d ilator were removed and the His C315 sheath was advanced over a Glidewire into the right ventricle. T he Glidewire and dilator removed and the left bundle pacing lead was advanced through the sheath and with the camera in LAWS 10, intracardiac electrogram His bundle recordings were performed, see below f or results. Once we found where the His was, I moved the camera into LAWS 30 and marked where this was on my fluor oscopy screen, then came down about 2 cm from this in a line that would extend out to the apex along where I would want to kind of position my left bundle lead. I started positioning the sheath down in this area, came on pacing to see how my pacing complex in V1 looked. At one point, I had a nice W pa ttern, so I moved to FLORIDALMA 30 and started giving a series of clockwise turns of the lead to start screw ing it into the septum. It was not screwing in the best. I ultimately ended up repositioning it at o ne time, but then as each clockwise turn was screwing into the septum, I had a nice W pattern that m igrated through and formed a nice R prime and I gave contrast to see how I was well into the septum. I then flipped the His C315 sheath under fluoroscopic guidance and I left the 7-Mauritian sheath in whi le I positioned the right atrial lead. Through the retained wire in the more lateral stick, a 7-Mauritian SafeSheath was advanced over the guid ewire. The guidewire and dilator removed. The right atrial lead was then advanced into right atrium and positioned into the right atrial appendage under fluoroscopic guidance. There was adequate paci ng and sensing thresholds and no diaphragmatic stimulation with high output pacing. The 7-Mauritian she ath was peeled away and the lead was fixated to pectoralis muscle using 0 silk suture. The 7-Mauritian sheath around the left bundle lead was then peeled away and the lead was fixated to pect oralis muscle using 0 silk suture. This pocket was flushed with copious amounts of vancomycin and sa line wash and inspected for hemostasis. Then, the leads were attached to the pulse generator making sure the pins were in appropriate position, passed set screws, and set screws were all tightened. Pu lse generator was then placed in a TYRX pouch followed then by being placed in the pocket, making moe e the leads were lying flat beneath the device. Incision was closed in a 3-layer fashion with 2-0 Vi cryl interrupted suture followed by 3-0 Vicryl suture, followed by a 4-0 Monocryl running stitch an d Dermabond was applied followed by Telfa and Tegaderm dressing. EQUIPMENT: 1. Pulse generator is a Medtronic Claria MRI AUTOCAD-D SureScan [id number], serial number [id number]. 2. TYRX pouch, reference IHDX5274, lot number [id number]. 3. Right atrial lead, Medtronic 5076-52 cm, serial number [id number]. 4. Right ventricular lead, Medtronic 6935M-62 cm, serial number [id number]. 5. Left bundle lead, Medtronic 3830-69 cm, serial number [id number]. INTRAOPERATIVE TESTIN. Intracardiac electrogram His bundle recordings: AH 50 milliseconds, HV 138 milliseconds. 2. Right atrial lead, P waves 2.6 millivolts, impedance 399 ohms, threshold 2.6 volts at 1 milliseco nd. 3. Right ventricular lead, R waves 9.7 millivolts, impedance 512 ohms, threshold 0.6 volts at 0.4 mi lliseconds. 4. Left bundle lead, impedance 554 ohms, threshold 1.9 volts at 1 millisecond. FINAL MEASUREMENTS THROUGH THE DEVICE. 1. Right atrial lead, P waves 0.8 millivolts, impedance 342 ohms, threshold 2.75 volts at 1 millisec ond. 2. Right ventricular lead, R waves 10.6 millivolts, impedance 437 ohms, threshold 0.75 volts at 0.4 milliseconds. 3. RV coil 67 ohms. 4. Left bundle lead, impedance 513 ohms, threshold 2.5 volts at 0.4 milliseconds. FINAL PARAMETERS: DDDR 60/130, right atrial amplitude 4 volts, pulse width 1 millisecond, sensitivit y 0.3 millivolts. Right ventricular amplitude 3.5 volts, pulse width 0.4 milliseconds, sensitivity 0 .3 millivolts. Left bundle amplitude 3.5 volts, pulse width 0.5 milliseconds. VT monitor zone 140 b eats per minute for 32 detection intervals, VT zone 167 beats per minute for 16 detection intervals, and VF zone at 200 beats per minute for 30/40 detection intervals. IMPRESSION: Successful biventricular rate responsive implantable cardiac defibrillator under fluoros copic guidance along with peripheral venogram and intracardiac electrogram His bundle recording secon judi to ischemic cardiomyopathy, congestive heart failure and left bundle-branch block. PLAN: Monitor the patient overnight, 12-lead ECG, chest x-ray. He cannot lift the left elbow or lef t shoulder for 1 month. He cannot lift more than 10 pounds with left arm for 2 weeks. He is to keep the dressing on and dry until his wound check next week. We will defer to primary and general cardi ology team for adjustments in AV kaylen blockers. He can restart anticoagulation. No systemic hepari n or Lovenox. Job ID: [id number]
== END 2021-06-21 14:30 | DRG 226 ==
LOC: ED 15:38 → SUATTDRO 20:42 → 2S 20:42 → 2N 06-21 01:45
PROC: EPB.ICD (2021-06-15 07:57)

== ENCOUNTER 2021-08-14 12:43 | Inpatient (IN) ==
[2021-08-14] MEDS ORDERED: CEFEPIME 2,000 MG/20 ML VIAL IV STA (13:04)
[2021-08-14] MEDS ORDERED: VANCOMYCIN CONSULT ACTIVE PRN (13:36)
[2021-08-14] MEDS ORDERED: VANCOMYCIN HCL 1,750 MG in SODIUM CHLORIDE 0.9% 500 ML IV ONE (13:36)
--- NOTE | 2021-08-14 13:36 | Emergency Department Note ---
Impression & Plan Acute decompensated heart failure, Acute kidney injury superimposed on chronic kidney disease, Pneumonia, Bilateral pleural effusion ED Provider Note NAME: BLAYNE TOLEDO AGE: 81 SEX: M : 1940 ARRIVES VIA: Walk-In INFORMANT: patient, ED PROVIDER(S): Kevin Sweeney MD Chief Complaint: Shortness of breath, leg swelling HPI: Patient does present with son at bedside due to concern for shortness of breath and leg swelling. The patient states that this is been ongoing over the last several days but has gotten acutely worse over this time. The patient denies any fevers or chills. The patient denies any chest pain. The patient does have associated orthopnea and dyspnea on exertion. The patient has been taking his medications as prescribed and does follow with [facility] cardiology as he has a known history of CHF. Patient is a former smoker and quit 3 months ago. The patient has had mildly productive and wet cough which she describes as brown and discolored. Patient denies any asymmetric leg swelling recent surgeries or procedures. The patient was inpatient and hospitalized back in June. Patient did take his morning medications today but did not take his afternoon torsemide. Patient does have variable weight gain and weight loss on a daily basis he states. The patient does believe that his lower extremities have gotten more swollen. ROS: See HPI for pertinent positives and negatives. A total of 10 systems were reviewed and otherwise negative. Past medical history: See below Surgical history: See below Social history: See below Physical Exam: GENERAL: Chronically ill in appearance, NAD, [wearing glasses,][wearing a mask,] non-toxic. EYE EXAM: Normal conjunctiva. PERRL, no anisocoria and EOM's grossly intact w/o pain. NECK: Supple, no nuchal rigidity, no adenopathy, non-tender. No signs of meningismus. LUNGS: Bibasilar crackles noted with associated coarse sounds in the right lower chest normal chest wall mechanics. HEART: NSR, no MRG. ABDOMEN: Abdomen soft, non-tender, normo-active bowel sounds, no masses, no rebound or guarding. BACK: No CVA TTP. SKIN: No rashes and no bruising. UPPER EXTREMITIES: Upper extremities are grossly normal. LOWER EXTREMITIES: Grossly normal, 3+ bilateral symmetric lower extremity edema. NEURO EXAM: A&O x3, cranial nerves II-XII grossly intact, normal speech, moves all 4 extremities on command w/o issue. Differential diagnoses: Reactive airway disease, pneumonia, pneumothorax, COPD, CHF, infections, cardiac ischemia, pulmonary embolism, musculoskeletal, gastrointestinal, as well as other pathologies. Course: Patient was seen and evaluated the bedside. Full history physical exam was performed. [EKG interpreted by me] Normal sinus rhythm, rate of 70, occasional pacer spikes noted, prolonged WA, wide QRS, left bundle branch block pattern. No obvious sgarbossa criteria. Imaging Studies: See Below [Cardiac monitoring: An order was placed for continuous cardiac monitoring. The monitor shows a rate of 69 with sinus rhythm.] MDM: Patient was seen due to concern for shortness of breath and cough with associated lower extremity edema. Blood work was obtained along with an EKG troponin chest x-ray blood cultures procalcitonin. Given the patient's cough and the fact that he sounds more coarse on the right the patient was ordered cefepime empirically along with a dose of vancomycin pending cultures and procalcitonin. Blood work did show a white count of 12 with some anemia. The patient's kidney function is slightly up from prior at 3 but runs typically in the twos. The patient does have an elevated BNP. Troponin is detectable but not elevated. Procalcitonin is not elevated. This x-ray does show pleural effusions. The patient was ordered Lasix 40 IV. I did speak the on-call hospitalist Aamir Munguia PA-C and the patient was admitted by Dr. Ny. Past Med/Surg History Medical History Anemia due to chronic disease treated with erythropoietin Anemia in CKD (chronic kidney disease) Aortic stenosis, moderate Cardiorenal syndrome with renal failure Chronic heart failure with reduced ejection fraction and diastolic dysfunction CKD (chronic kidney disease) stage 4, GFR 15-29 ml/min CLL (chronic lymphocytic leukemia) H/O: rheumatic fever HTN (hypertension) ICD (implantable cardioverter-defibrillator) in place LBBB (left bundle branch block) MDS (myelodysplastic syndrome), low grade Nocturnal hypoxemia HAWA (obstructive sleep apnea) Paroxysmal atrial fibrillation Prostate cancer Tobacco use disorder Surgical History H/O uvulectomy H/O vascular surgery LLE: thrombectomy at [facility] S/P tonsillectomy and adenoidectomy Family History Other Family history non-contributory Social History Smoking Status: Former smoker Tobacco Type: Cigarettes Smoking End Date: 05/2021; Second Hand Exposure: No; Hx Alcohol Use: No Hx Substance Use: No Preferred Language: Macedonian Communication Ability: Impaired Communication Ability Comment: only reads and writes a litttle [employer] Rater Required: No Beliefs That Will Affect Care: None marital status: / Current Living Situation: Significant Other Current Living Situation Comment: Pt lives with girlfriend Zaira Toledo How many Children do You have: 4 Feels Safe at Home: Yes Safety Concerns: Feels Safe At This Time Assistive Devices: Cane, Glasses and Walker Allergies Allergies Allergy/AdvReac Type Severity Reaction Status Date / Time RYLEE Inhibitors AdvReac Intermediate Renal Verified 08/14/21 15:57 Complications Home Meds Home Medications Medication Instructions Recorded Confirmed azelastine 137 mcg (0.1 %) nasal 2 spray INTRANASAL BID 03/11/21 08/14/21 spray aerosol cholecalciferol (vitamin D3) 25 25 mcg PO QAM 03/11/21 08/14/21 mcg (1,000 unit) tablet (Vitamin D3) cyanocobalamin (vitamin B-12) 1,000 mcg PO QAM 03/11/21 08/14/21 1,000 mcg tablet (Vitamin B-12) fluticasone propionate 50 1 spray INTRANASAL DAILY 03/11/21 08/14/21 mcg/actuation nasal spray,suspension levothyroxine 75 mcg tablet 75 mcg PO DAILYBB 03/11/21 08/14/21 pyridoxine (vitamin B6) 100 mg 100 mg PO AMPM 03/11/21 08/14/21 tablet (Vitamin B-6) triamcinolone acetonide 0.1 % 1 applic TOPICAL HS PRN 03/11/21 08/14/21 topical ointment amiodarone 200 mg tablet 200 mg PO QAM 05/14/21 08/14/21 torsemide 20 mg tablet 40 mg PO BID 05/14/21 08/14/21 atorvastatin 40 mg tablet 40 mg PO HS 05/16/21 08/14/21 gabapentin 100 mg capsule 100 mg PO AMPM PRN 08/14/21 08/14/21 metoprolol succinate 25 mg 12.5 mg PO HS 08/14/21 08/14/21 tablet,extended release 24 hr potassium chloride 20 mEq 40 meq PO QAM 08/14/21 08/14/21 tablet,extended release(part/cryst) warfarin 2 mg tablet 2 mg PO DAILY 08/14/21 08/14/21 Previous Rx's Medication Instructions Recorded aspirin 81 mg tablet,delayed 81 mg PO QAM #30 tab 03/20/21 release Results & Data (ED) Vital Signs Vital Signs - 24 hr 08/14/21 12:45 08/14/21 13:22 08/14/21 14:00 Temperature 37.3 C Temperature Source Temporal Artery Scan Pulse Rate 65 72 72 Pulse Rate [Apical] Pulse Rate from SpO2 Sensor 72 Pulse Rhythm Regular Respiratory Rate 21 21 13 Respiratory Effort / Characteristics Non-Labored Spontaneous Respiratory Depth Normal Respiratory Pattern Regular Blood Pressure 104/61 97/52 L Blood Pressure [Right Arm] Blood Pressure Mean 75 67 Blood Pressure Mean [Right Arm] Blood Pressure Position Sitting Pulse Oximetry 99 92 94 Oxygen Delivery Method Room Air Room Air Room Air Sepsis Recent Fever Within 48 Hours No Sepsis New/Unexplained Change in Mental Status N/A Sepsis Action Taken by Nursing No Action Required 08/14/21 14:30 08/14/21 14:44 Temperature Temperature Source Pulse Rate 73 Pulse Rate [Apical] 75 Pulse Rate from SpO2 Sensor 72 Pulse Rhythm Respiratory Rate 21 22 Respiratory Effort / Characteristics Respiratory Depth Respiratory Pattern Blood Pressure 92/45 L Blood Pressure [Right Arm] 111/49 L Blood Pressure Mean 60 Blood Pressure Mean [Right Arm] 69 Blood Pressure Position Pulse Oximetry 93 97 Oxygen Delivery Method Room Air Sepsis Recent Fever Within 48 Hours Sepsis New/Unexplained Change in Mental Status Sepsis Action Taken by Detention Medications Current Medication List: was personally reviewed by me Laboratory Data Attestation: I reviewed the patient's lab results. Result diagrams: 08/15/21 05:45 08/15/21 05:45 Lab Results 08/14/21 08/14/21 08/14/21 Range/Units 13:33 13:33 13:33 WBC 12.84 H (4.8-10.8) K/uL RBC 2.29 L (4.7-6.1) M/uL Hgb 9.0 L (14.0-18.0) g/dL Hct 27.4 L (42-52) % MCV 119.7 H (80-100) fL MCH 39.3 H (25-34) pg MCHC 32.8 (32-36) g/dL RDW Std Deviation 94.3 H (36.4-46.3) fL RDW Coeff of Geovanni 21.8 H (11.5-14.5) % Plt Count 313 (130-400) K/uL MPV 10.0 (7.4-10.4) fL Immature Gran % (Auto) 0.2 % Neut % (Auto) 46.9 % Lymph % (Auto) 41.0 % Jewell % (Auto) 9.9 % Eos % (Auto) 1.6 % Baso % (Auto) 0.4 % Neut # (Auto) 6.03 (1.4-6.5) K/uL Lymph # (Auto) 5.27 H (1.2-3.4) K/uL Jewell # (Auto) 1.27 H (0.11-0.59) K/uL Eos # (Auto) 0.20 (0-0.5) K/uL Baso # (Auto) 0.05 (0-0.2) K/uL Immature Gran # (Auto) 0.02 (0.00-0.02) K/uL Polychromasia 1+ Ovalocytes 1+ Acanthocytes (Spur) 1+ PT (9.0-12.0) Seconds INR (0.9-1.1) Sodium 130 L (136-145) mmol/L Potassium 4.4 (3.5-5.1) mmol/L Chloride 98 (98-107) mmol/L Carbon Dioxide 23 (21-32) mmol/L Anion Gap 9 (3-11) BUN 60 H (6-23) mg/dl Creatinine 3.06 H (0.6-1.4) mg/dl Est Cr Clr Drug Dosing Not Reportable Est GFR ( Amer) 21.2 ml/min Est GFR (Non-Af Amer) 18.3 ml/min BUN/Creatinine Ratio 19.6 (10-20) Glucose 94 (70-99(Fasting)) mg/dl Calcium 8.1 L (8.5-10.1) mg/dl Total Bilirubin 1.5 H (0.2-1.0) mg/dl AST 33 (13-39) U/L ALT 48 (7-52) U/L Alkaline Phosphatase 100 (34-104) U/L Troponin I 0.03 (0-0.04) ng/ml B-Natriuretic Peptide (0-100) pg/ml Total Protein 6.2 (6.0-8.3) gm/dl Albumin 3.7 (3.4-5.0) gm/dl Globulin 2.5 (2.5-4.0) gm/dl Albumin/Globulin Ratio 1.5 (0.9-2) Procalcitonin 0.09 (0-0.5) ng/ml Nasal Screen MRSA (PCR) (Negative) SARS-CoV-2, RNA, NAAT (NEGATIVE) 08/14/21 08/14/21 08/14/21 Range/Units 13:33 13:33 13:46 WBC (4.8-10.8) K/uL RBC (4.7-6.1) M/uL Hgb (14.0-18.0) g/dL Hct (42-52) % MCV (80-100) fL MCH (25-34) pg MCHC (32-36) g/dL RDW Std Deviation (36.4-46.3) fL RDW Coeff of Geovanni (11.5-14.5) % Plt Count (130-400) K/uL MPV (7.4-10.4) fL Immature Gran % (Auto) % Neut % (Auto) % Lymph % (Auto) % Jewell % (Auto) % Eos % (Auto) % Baso % (Auto) % Neut # (Auto) (1.4-6.5) K/uL Lymph # (Auto) (1.2-3.4) K/uL Jewell # (Auto) (0.11-0.59) K/uL Eos # (Auto) (0-0.5) K/uL Baso # (Auto) (0-0.2) K/uL Immature Gran # (Auto) (0.00-0.02) K/uL Polychromasia Ovalocytes Acanthocytes (Spur) PT 26.8 H (9.0-12.0) Seconds INR 2.7 H (0.9-1.1) Sodium (136-145) mmol/L Potassium (3.5-5.1) mmol/L Chloride (98-107) mmol/L Carbon Dioxide (21-32) mmol/L Anion Gap (3-11) BUN (6-23) mg/dl Creatinine (0.6-1.4) mg/dl Est Cr Clr Drug Dosing Est GFR ( Amer) ml/min Est GFR (Non-Af Amer) ml/min BUN/Creatinine Ratio (10-20) Glucose (70-99(Fasting)) mg/dl Calcium (8.5-10.1) mg/dl Total Bilirubin (0.2-1.0) mg/dl AST (13-39) U/L ALT (7-52) U/L Alkaline Phosphatase (34-104) U/L Troponin I (0-0.04) ng/ml B-Natriuretic Peptide > 4700 H (0-100) pg/ml Total Protein (6.0-8.3) gm/dl Albumin (3.4-5.0) gm/dl Globulin (2.5-4.0) gm/dl Albumin/Globulin Ratio (0.9-2) Procalcitonin (0-0.5) ng/ml Nasal Screen MRSA (PCR) (Negative) SARS-CoV-2, RNA, NAAT NEGATIVE (NEGATIVE) 08/14/21 Range/Units 13:46 WBC (4.8-10.8) K/uL RBC (4.7-6.1) M/uL Hgb (14.0-18.0) g/dL Hct (42-52) % MCV (80-100) fL MCH (25-34) pg MCHC (32-36) g/dL RDW Std Deviation (36.4-46.3) fL RDW Coeff of Geovanni (11.5-14.5) % Plt Count (130-400) K/uL MPV (7.4-10.4) fL Immature Gran % (Auto) % Neut % (Auto) % Lymph % (Auto) % Jewell % (Auto) % Eos % (Auto) % Baso % (Auto) % Neut # (Auto) (1.4-6.5) K/uL Lymph # (Auto) (1.2-3.4) K/uL Jewell # (Auto) (0.11-0.59) K/uL Eos # (Auto) (0-0.5) K/uL Baso # (Auto) (0-0.2) K/uL Immature Gran # (Auto) (0.00-0.02) K/uL Polychromasia Ovalocytes Acanthocytes (Spur) PT (9.0-12.0) Seconds INR (0.9-1.1) Sodium (136-145) mmol/L Potassium (3.5-5.1) mmol/L Chloride (98-107) mmol/L Carbon Dioxide (21-32) mmol/L Anion Gap (3-11) BUN (6-23) mg/dl Creatinine (0.6-1.4) mg/dl Est Cr Clr Drug Dosing Est GFR ( Amer) ml/min Est GFR (Non-Af Amer) ml/min BUN/Creatinine Ratio (10-20) Glucose (70-99(Fasting)) mg/dl Calcium (8.5-10.1) mg/dl Total Bilirubin (0.2-1.0) mg/dl AST (13-39) U/L ALT (7-52) U/L Alkaline Phosphatase (34-104) U/L Troponin I (0-0.04) ng/ml B-Natriuretic Peptide (0-100) pg/ml Total Protein (6.0-8.3) gm/dl Albumin (3.4-5.0) gm/dl Globulin (2.5-4.0) gm/dl Albumin/Globulin Ratio (0.9-2) Procalcitonin (0-0.5) ng/ml Nasal Screen MRSA (PCR) Negative (Negative) SARS-CoV-2, RNA, NAAT (NEGATIVE) Administered Medications Acetaminophen (Acetaminophen 325 Mg Tab) 650 mg PO Q4H PRN PRN Reason: Pain or Fever Stop: 09/13/21 16:44 Last Admin: 08/14/21 22:32 Dose: 650 mg Documented by: [id number] Atorvastatin Calcium (Atorvastatin 40 Mg Tab) 40 mg PO HS ABAD Stop: 09/13/21 20:59 Last Admin: 08/14/21 19:37 Dose: 40 mg Documented by: [id number] Azelastine HCl (Azelastine Hcl 0.1% Nasal 200 Sprays/27,400 Mcg Btl) 2 sprays RAMIRO BID [facility] Stop: 09/13/21 20:59 Last Admin: 08/14/21 19:37 Dose: 2 sprays Documented by: [id number] Ceftriaxone Sodium 1,000 mg/ (Dextrose) 50 mls @ 100 mls/hr IV Q24H [facility]; Protocol Stop: 08/21/21 17:59 Last Infusion: 08/14/21 18:29 Dose: 0 mls/hr Documented by: [id number] Admin: 08/14/21 17:49 Dose: 100 mls/hr Documented by: [id number] Levothyroxine Sodium (Levothyroxine Sodium 75 Mcg Tablet) 75 mcg PO DAILYBB [facility] Stop: 09/14/21 06:29 Last Admin: 08/15/21 05:12 Dose: 75 mcg Documented by: [id number] Melatonin (Melatonin 3 Mg Tab) 3 mg PO HS PRN PRN Reason: Sleep Stop: 09/13/21 22:10 Last Admin: 08/14/21 22:29 Dose: 3 mg Documented by: [id number] Metoprolol Succinate (Metoprolol Succ 25mg Ext Rel Tab) 12.5 mg PO HS [facility] Stop: 09/13/21 20:59 Last Admin: 08/14/21 19:36 Dose: 12.5 mg Documented by: [id number] Pyridoxine HCl (Pyridoxine Hcl 50 Mg Tab) 100 mg PO BID [facility] Stop: 09/13/21 20:59 Last Admin: 08/14/21 19:36 Dose: 100 mg Documented by: [id number] Discontinued Medications Furosemide (Furosemide 40 Mg/4 Ml Vial) 40 mg IV ONE ONE Stop: 08/14/21 14:43 Last Admin: 08/14/21 15:48 Dose: 40 mg Documented by: [id number] Cefepime HCl (Maxipime) 2,000 mg in 20 mls @ 5 mls/min IV NOW [facility]; Protocol Stop: 08/14/21 13:07 Last Admin: 08/14/21 13:53 Dose: 5 mls/min Documented by: [id number] Vancomycin HCl 1,750 mg/ (Sodium Chloride) 535 mls @ 200 mls/hr IV NOW ONE Stop: 08/14/21 16:05 Last Infusion: 08/14/21 16:49 Dose: 0 mls/hr Documented by: [id number] Admin: 08/14/21 13:57 Dose: 200 mls/hr Documented by: [id number] Calcium Gluconate () 1,000 mg in 60 mls @ 240 mls/hr IV NOW STA Stop: 08/14/21 14:56 Last Infusion: 08/14/21 16:49 Dose: 0 mls/hr Documented by: [id number] Admin: 08/14/21 15:48 Dose: 240 mls/hr Documented by: [id number] Zolpidem Tartrate (Zolpidem Tartrate 5 Mg Tab) 5 mg PO NOW STA Stop: 08/14/21 21:38 Last Admin: 08/14/21 23:40 Dose: Not Given Documented by: [id number] Imaging Data Radiologist's Impression: Chest X-Ray 08/14/21 13:03 XR chest 1V portable CLINICAL HISTORY: Dyspnea TECHNIQUE: Single frontal radiograph of the chest was obtained. Comparison: Comparison is made to chest one view 06/15/2021 FINDINGS: Stable pacemaker defibrillator. Cardiomegaly is noted. Prominence and cephalization of the vasculature is seen. Possible tiny bilateral pleural effusions. IMPRESSION: Possible tiny bilateral pleural effusions, decreased from prior exam. Previously noted airspace opacities have resolved. There is mild pulmonary edema. ACT 112: Negative or not required by law. Electronically signed by: Luciano Monterroso M.D. 08/14/2021 1:44 PM Discharge Plan Visit Data Chief Complaint: Swelling/Edema to Extremity Stated Complaint: SWOLLEN LEGS, SOB (CHF) Discharge Problem: Acute decompensated heart failure, Acute kidney injury superimposed on chronic kidney disease, Pneumonia, Bilateral pleural effusion Patient Disposition: Admitted As Inpatient Discharge Instructions Interventions: ED Discharge Assessment Last Done: 08/14/21 16:25
--- NOTE | 2021-08-14 13:45 | XRay Report ---
XR chest 1V portable CLINICAL HISTORY: Dyspnea TECHNIQUE: Single frontal radiograph of the chest was obtained. Comparison: Comparison is made to chest one view 06/15/2021 FINDINGS: Stable pacemaker defibrillator. Cardiomegaly is noted. Prominence and cephalization of the vasculatur e is seen. Possible tiny bilateral pleural effusions. IMPRESSION: Possible tiny bilateral pleural effusions, decreased from prior exam. Previously noted airspace opaci ties have resolved. There is mild pulmonary edema. ACT 112: Negative or not required by law. Electronically signed by: Luciano Monterroso M.D. 08/14/2021 1:44 PM
[2021-08-14 13:56] LABS: Hematocrit (blood only) 27.4 % (42-52); Mean Corpuscular Hemoglobin 39.3 pg (25-34); Mean Corpuscular Hgb Conc 32.8 g/dL (32-36); Mean Corpuscular Volume 119.7 fL (80-100); Platelet Count 313 K/uL (130-400); RDW Coefficient of Variation 21.8 % (11.5-14.5); RDW Standard Deviation 94.3 fL (36.4-46.3); Red Blood Count 2.29 M/uL (4.7-6.1); White Blood Count 12.84 K/uL (4.8-10.8)
[2021-08-14 14:18] LABS: Acanthocytes 1+; Basophils # (auto) 0.05 K/uL (0-0.2); Basophils % (auto) 0.4 %; Eosinophils % (auto) 1.6 %; Immature Granulocytes # (auto) 0.02 K/uL (0.00-0.02); Immature Granulocytes % (auto) 0.2 %; Lymphocytes # (auto) 5.27 K/uL (1.2-3.4); Monocytes # (auto) 1.27 K/uL (0.11-0.59); Monocytes % (auto) 9.9 %; Neutrophils # (auto) 6.03 K/uL (1.4-6.5); Neutrophils % (auto) 46.9 %; Ovalocytes 1+; Polychromasia 1+
[2021-08-14 14:22] LABS: Troponin I 0.03 ng/ml (0-0.04)
[2021-08-14 14:24] LABS: Alanine Aminotransferase 48 U/L (7-52); Albumin Globulin Ratio 1.5 (0.9-2); Albumin Level 3.7 gm/dl (3.4-5.0); Alkaline Phosphatase 100 U/L (34-104); Anion Gap 9 (3-11); Aspartate Aminotransferase 33 U/L (13-39); BUN Creatinine Ratio 19.6 (10-20); Bilirubin,Total 1.5 mg/dl (0.2-1.0); Blood Urea Nitrogen 60 mg/dl (6-23); Calcium 8.1 mg/dl (8.5-10.1); Carbon Dioxide 23 mmol/L (21-32); Chloride 98 mmol/L (98-107); Est GFR (African American) 21.2 ml/min; Est GFR (Non-African American) 18.3 ml/min; Globulin 2.5 gm/dl (2.5-4.0); Glucose 94 mg/dl (70-99(Fasting)); Potassium 4.4 mmol/L (3.5-5.1); Sodium 130 mmol/L (136-145); Total Protein 6.2 gm/dl (6.0-8.3)
[2021-08-14] MEDS ORDERED: CALCIUM GLUCONATE 1,000 MG/60 ML BAG IV STA (14:42)
[2021-08-14] MEDS ORDERED: FUROSEMIDE 40 MG/4 ML VIAL IV ONE (14:42)
--- NOTE | 2021-08-14 14:55 | History & Physical Report ---
Date of Service August 14, 2021 Assessment & Plan (1) SOB (shortness of breath): (2) Cough: (3) Acute on chronic HFrEF (heart failure with reduced ejection fraction): (4) Ischemic cardiomyopathy: (5) ICD (implantable cardioverter-defibrillator) in place: (6) Bronchitis: Plan: Possible Bronchitis Patient is 81-year-old male with PMH HTN, chronic HFrEF, EF 20-25% on echo 2020, s/p ICD, ventricular tachycardia, LBBB, moderate aortic stenosis, CKD IV, arterial thrombosis, chronic anemia, pleural effusions, lymphoma treated with chemotherapy, myelodysplastic syndrome and other problems listed below presented to ER with complaint of shortness of breath and productive cough, rhinorrhea x 1 day. Denies fever/chills, CP. Recent h/o hospitalization for acute on chronic HFrEF, pleural effusions s/p bilateral thoracentesis, ICD placement on 06/15/2021, Today in ER afebrile, no hypoxia, other vitals stable. WBC: 12, procalcitonin: 0.09. BNP: >4700, troponin: 0.03. Negative SARS CoV2 NAAT test. CXR: Possible tiny bilateral pleural effusions, decreased from prior exam. Previously noted airspace opacities have resolved. There is mild pulmonary edema. In ER was given cefepime, vancomycin, lasix 40mg IV, calcium gluconate 1000mg IV Likely SOB and cough secondary to acute on chronic CHF. Possible bronchitis. No infiltrates noted on CXR at this time. History echo 05/15/2021: EF: 25-30%, large sized apical, septal, anterior septal, anterior and lateral wall motion abnormality with hypokinesis to akinesis of the segments. Mild diffuse right ventricular hypokinesis, moderate mitral regurgitation, mild to moderate tricuspid regurgitation, mild aortic valve stenosis, severe pulmonary hypertension, grade 2 diastolic dysfunction, Negative MRSA swab Blood cultures pending, sputum culture pending Start Rocephin Lasix 40mg IV BID, hold home torsemide Monitor I's &O's, daily weight, low sodium diet, fluid restriction 1500ml Continue aspirin, metoprolol, atorvastatin Cardiology consult CBC. BMP in am (7) CKD (chronic kidney disease) stage 4, GFR 15-29 ml/min: Plan: Cr: 3.0. Has been running 2-2.9 over the past 2 months. Monitor renal functions Nephrology consult (8) Paroxysmal atrial fibrillation: Plan: On warfarin Current paced rhythm INR: 2.7 Continue warfarin, amiodarone, metoprolol INR in a.m. (9) Pleural effusion: Plan: History bilateral pleural effusions requiring thoracentesis in the recent past Current chest x-ray without significant pleural effusions (10) Anemia in CKD (chronic kidney disease): Plan: Hgb: 9.0. Around recent baseline Monitor H&H History left lower extremity embolism S/P emergent thrombectomy in 03/2021 Continue aspirin, warfarin History HAWA Not currently using CPAP DVT Prophylaxis On warfarin and INR therapeutic Full Code as per discussion with pt Follows with Dr Healy for routine care Pt was seen and care coordinated with Dr Peña. See addendum History of Present Illness Chief Complaint: SOB Primary Care Provider: Everton Healy DO Patient is 81-year-old male with PMH HTN, chronic HFrEF, EF 20-25% on echo 2020, s/p ICD, ventricular tachycardia, LBBB, moderate aortic stenosis, CKD IV, arterial thrombosis, chronic anemia, pleural effusions, lymphoma treated with chemotherapy, myelodysplastic syndrome and other problems listed below presented to ER with complaint of shortness of breath and cough x 1 day. History hospitalization at [facility] 05/25/2021-06/22/2021 for acute on chronic HFrEF, pleural effusions s/p bilateral thoracentesis, ICD placement on 06/15/2021, ERICK, UTI. History hospitalization end of February 2021 for acute respiratory failure, NSTEMI, CHF, had bilateral thoracentesis showing transudate. New onset A. kerri also developed left leg arterial embolism and had thrombectomy on 03/12/2021, discharged on aspirin and Coumadin. Patient reports cough started last night and reports cough is productive yellow/brown. Also reports clear rhinorrhea. Denies chest pain. He states has chronic SOB with exertion and is unsure if it is worse. Unsure if has orthopnea. Reports chronic bilateral leg swelling and feels like legs have been more swollen. He reports pain to left heel that was evaluated at prior hospitalization by vascular surgery as well. Denies any fever/chills, known ill contacts, diaphoresis, N/V/D/C, SHOEMAKER, dizziness, syncope, vision changes, neck pain, palpitations, hemoptysis, sore throat, choking, otalgia, abdominal pain, paresthesias, extremity weakness, rashes, dysuria, hematuria. Today in ER afebrile, no hypoxia, vitals stable. WBC: 12, procalcitonin: 0.09. CXR: Possible tiny bilateral pleural effusions, decreased from prior exam. Previously noted airspace opacities have resolved. There is mild pulmonary edema. In ER was given cefepime, vancomycin, lasix 40mg IV, calcium gluconate 1000mg IV. Allergies Allergy/AdvReac Type Severity Reaction Status Date / Time RYLEE Inhibitors AdvReac Intermediate Renal Verified 08/14/21 15:57 Complications Home Medications Medication Instructions Recorded Confirmed Type azelastine 137 mcg (0.1 %) nasal 2 spray INTRANASAL BID 03/11/21 08/14/21 History spray aerosol cholecalciferol (vitamin D3) 25 25 mcg PO QAM 03/11/21 08/14/21 History mcg (1,000 unit) tablet (Vitamin D3) cyanocobalamin (vitamin B-12) 1,000 mcg PO QAM 03/11/21 08/14/21 History 1,000 mcg tablet (Vitamin B-12) fluticasone propionate 50 1 spray INTRANASAL DAILY 03/11/21 08/14/21 History mcg/actuation nasal spray,suspension levothyroxine 75 mcg tablet 75 mcg PO DAILYBB 03/11/21 08/14/21 History pyridoxine (vitamin B6) 100 mg 100 mg PO AMPM 03/11/21 08/14/21 History tablet (Vitamin B-6) triamcinolone acetonide 0.1 % 1 applic TOPICAL HS PRN 03/11/21 08/14/21 History topical ointment aspirin 81 mg tablet,delayed 81 mg PO QAM #30 tab 03/20/21 08/14/21 Rx release amiodarone 200 mg tablet 200 mg PO QAM 05/14/21 08/14/21 History torsemide 20 mg tablet 40 mg PO BID 05/14/21 08/14/21 History atorvastatin 40 mg tablet 40 mg PO HS 05/16/21 08/14/21 History gabapentin 100 mg capsule 100 mg PO AMPM PRN 08/14/21 08/14/21 History metoprolol succinate 25 mg 12.5 mg PO HS 08/14/21 08/14/21 History tablet,extended release 24 hr potassium chloride 20 mEq 40 meq PO QAM 08/14/21 08/14/21 History tablet,extended release(part/cryst) warfarin 2 mg tablet 2 mg PO DAILY 08/14/21 08/14/21 History Past Med/Surg History Medical History (Updated 08/14/21 @ 16:40 by Aide Munguia PA-C) Anemia due to chronic disease treated with erythropoietin Anemia in CKD (chronic kidney disease) Aortic stenosis, moderate Cardiorenal syndrome with renal failure Chronic heart failure with reduced ejection fraction and diastolic dysfunction CKD (chronic kidney disease) stage 4, GFR 15-29 ml/min CLL (chronic lymphocytic leukemia) H/O: rheumatic fever HTN (hypertension) ICD (implantable cardioverter-defibrillator) in place LBBB (left bundle branch block) MDS (myelodysplastic syndrome), low grade Nocturnal hypoxemia HAWA (obstructive sleep apnea) Paroxysmal atrial fibrillation Prostate cancer Tobacco use disorder Surgical History (Updated 08/14/21 @ 16:31 by Aide Munguia PA-C) H/O uvulectomy H/O vascular surgery LLE: thrombectomy at [facility] S/P tonsillectomy and adenoidectomy Family History Other Family history non-contributory Social History Smoking Status: Former smoker Tobacco Type: Cigarettes Smoking End Date: 05/2021; Second Hand Exposure: No; Hx Alcohol Use: No Hx Substance Use: No Preferred Language: Libyan Communication Ability: Impaired Communication Ability Comment: only reads and writes a litttle Olive Brine Tester Required: No Beliefs That Will Affect Care: None marital status: / Current Living Situation: Significant Other Current Living Situation Comment: Pt lives with girlfriend Zaira [place]edo How many Children do You have: 4 Feels Safe at Home: Yes Safety Concerns: Feels Safe At This Time Assistive Devices: Cane, Glasses and Walker Review of Systems Review of Systems: All systems reviewed & are unremarkable except as noted in HPI & below Physical Exam Physical Exam: General: no distress, WDWN, chronic ill appearing Head: normocephalic, atraumatic Eyes: PERRL, EOM's intact, conjunctiva non-injected, anicteric ENT: normal inspection external ears, nose, mucous membranes moist Neck: supple, trachea midline Lungs: no respiratory distress, +rhonchi CV: regular, +systolic murmur, 2+ pretibial edema Abd: normal BS, soft, non-tender Ext: no cyanosis or erythema, no calf tenderness, left heel tender to palpation Neuro: A&O x 3, no focal deficits noted, normal affect Skin: warm, dry Results & Data Results & Data ([facility]) Vital Signs (Past 12 Hours) Vital Signs Temp Pulse Resp BP Pulse Ox 08/14/21 14:30 73 21 92/45 L 93 08/14/21 14:00 72 13 97/52 L 94 08/14/21 13:22 72 21 92 08/14/21 12:45 37.3 C 65 21 104/61 99 Laboratory Results Short CBC 08/14/21 Range/Units 13:33 WBC 12.84 H (4.8-10.8) K/uL Hgb 9.0 L (14.0-18.0) g/dL Hct 27.4 L (42-52) % Plt Count 313 (130-400) K/uL BMP 08/14/21 13:33 Sodium 130 L Potassium 4.4 Chloride 98 Carbon Dioxide 23 BUN 60 H Creatinine 3.06 H Glucose 94 Calcium 8.1 L Cardiac Enzymes 08/14/21 Range/Units 13:33 Troponin I 0.03 (0-0.04) ng/ml Liver Function 08/14/21 Range/Units 13:33 Total Bilirubin 1.5 H (0.2-1.0) mg/dl AST 33 (13-39) U/L ALT 48 (7-52) U/L Alkaline Phosphatase 100 (34-104) U/L Albumin 3.7 (3.4-5.0) gm/dl Diagnostic Findings Chest X-Ray 08/14/21 13:03 XR chest 1V portable CLINICAL HISTORY: Dyspnea TECHNIQUE: Single frontal radiograph of the chest was obtained. Comparison: Comparison is made to chest one view 06/15/2021 FINDINGS: Stable pacemaker defibrillator. Cardiomegaly is noted. Prominence and cephalization of the vasculature is seen. Possible tiny bilateral pleural effusions. IMPRESSION: Possible tiny bilateral pleural effusions, decreased from prior exam. Previously noted airspace opacities have resolved. There is mild pulmonary edema. ACT 112: Negative or not required by law. Electronically signed by: Luciano Monterroso M.D. 08/14/2021 1:44 PM Supervising Physician Co-Signing Physician Notes Pt is a 81 y/o M with hx of HFrEF s/p BIV ICD and pacemaker, Afib on Coumadin, CKD IV (bl Cr 2.5), mild aortic valve stenosis, T cell lymphoma s/p chemo, Myelodysplastic syndrome, chronic anemia (on Procrit, bl hgb 8-9), LBBB, Cardiorenal syndrome, hx of b/l pleural effusion s/p thoracentesis, hx of mycosis fungoides, L leg arterial embolism s/p thrombectomy admitted for [facility]. PE: NAD, Well developed Lungs: good air entry b/l with b/l lower lobe rales Cardiac: Normal S1/S2, systolic murmur Abd: ND, NT, Soft MSK: severe pitting edema b/l LE up to the knee Psych: AAOx3, normal affect A/P: Acute on CHFrEF: -pt is on torsemide 40mg BID --- will do Lasix 40mg IV BID -trop neg -Strict I/O -fluid restriction 1.5L -cardiology consult Cough: -CXR appears better than before -could be 2/2 Bronchitis vs post nasal drip vs pleural effusion -since pt has slight leukocytosis will continue ceftriaxone for now ----- d/c vanc and cefepime -Mucinex BID CKD: -near baseline cr Afib on Coumadin: -c/w home meds Agree with A/P by Aide Munguia PA-C
[2021-08-14 16:24] LABS: INR 2.7 (0.9-1.1); Prothrombin Time 26.8 Seconds (9.0-12.0)
[2021-08-14] MEDS ORDERED: cefTRIAXone SODIUM 1,000 MG in DEXTROSE 5% 50 ML IV SCH (18:00)
[2021-08-14] MEDS: PYRIDOXINE HCL 50 MG TAB PO SCH (19:36)
[2021-08-14] MEDS: METOPROLOL SUCC 25MG EXT REL TAB PO SCH (19:36)
[2021-08-14] MEDS: AZELASTINE HCL 0.1% NASAL 200 SPRAYS/27,400 MCG BTL NAE SCH (19:37)
[2021-08-14] MEDS: ATORVASTATIN 40 MG TAB PO SCH (19:37)
[2021-08-14 20:44] LABS: Appearance Urine Clear (Clear); Bacteria Urine Automated Negative (Negative); Bilirubin Urine Negative (Negative); Blood Urine 1+ (Negative); Color Urine Yellow; Epithelial Cell Urine Auto 20-30 /lpf (0-5); Glucose Urine UA Negative (Negative); Ketones Urine Negative (Negative); Leukocyte Esterase Urine Negative (Negative); Nitrite Urine Negative (Negative); Protein Urine Negative (Negative); RBC Urine Automated 0-4 /hpf (0-4); Specific Gravity Urine 1.011 (1.000-1.030); Urobilinogen Urine Negative (Negative)
[2021-08-14] MEDS ORDERED: ZOLPIDEM TARTRATE 5 MG TAB PO STA (21:37)
[2021-08-14] MEDS: MELATONIN 3 MG TAB PO PRN (22:29)
[2021-08-14] MEDS: ACETAMINOPHEN 325 MG TAB PO PRN (22:32)
[2021-08-15] MEDS: LEVOTHYROXINE SODIUM 75 MCG TABLET PO SCH (05:12)
[2021-08-15 06:08] LABS: Basophils # (auto) 0.02 K/uL (0-0.2); Basophils % (auto) 0.1 %; Hematocrit (blood only) 27.7 % (42-52); Hemoglobin 9.2 g/dL (14.0-18.0); Immature Granulocytes # (auto) 0.05 K/uL (0.00-0.02); Immature Granulocytes % (auto) 0.4 %; Lymphocytes # (auto) 2.81 K/uL (1.2-3.4); Lymphocytes % (auto) 19.8 %; Mean Corpuscular Hemoglobin 39.5 pg (25-34); Mean Corpuscular Hgb Conc 33.2 g/dL (32-36); Mean Corpuscular Volume 118.9 fL (80-100); Monocytes # (auto) 1.52 K/uL (0.11-0.59); Monocytes % (auto) 10.7 %; Neutrophils # (auto) 9.76 K/uL (1.4-6.5); Platelet Count 264 K/uL (130-400); RDW Coefficient of Variation 21.9 % (11.5-14.5); RDW Standard Deviation 94.5 fL (36.4-46.3); Red Blood Count 2.33 M/uL (4.7-6.1); White Blood Count 14.16 K/uL (4.8-10.8)
[2021-08-15 06:29] LABS: INR 4.4 (0.9-1.1); Prothrombin Time 43.1 Seconds (9.0-12.0)
[2021-08-15 06:39] LABS: Albumin Globulin Ratio 1.8 (0.9-2); Albumin Level 3.4 gm/dl (3.4-5.0); BUN Creatinine Ratio 19.3 (10-20); Bilirubin,Total 2.5 mg/dl (0.2-1.0); Creatinine Clr Calc Pharmacy 16.9 ml/min; Est GFR (African American) 18.9 ml/min; Est GFR (Non-African American) 16.3 ml/min; Globulin 1.9 gm/dl (2.5-4.0); Potassium 4.9 mmol/L (3.5-5.1); Total Protein 5.3 gm/dl (6.0-8.3)
--- NOTE | 2021-08-15 06:43 | Electrocardiogram Report ---
Test Reason : Blood Pressure : / mmHG Vent. Rate : 070 BPM Atrial Rate : 070 BPM P-R Int : 192 ms QRS Dur : 172 ms QT Int : 506 ms P-R-T Axes : 076 084 086 degrees QTc Int : 546 ms Normal sinus rhythm Left bundle branch block Abnormal ECG When compared with ECG of 15-JUN-2021 16:16, Left bundle branch block has replaced Right bundle branch block Confirmed by William Pastrana ([id number]) on 08/15/2021 6:43:21 AM Referred By: REFERRED SELF Confirmed By:William Pastrana
[2021-08-15 07:39] LABS: Acanthocytes 1+; Anisocytosis Present; Macrocytosis Present; Polychromasia 1+
[2021-08-15] MEDS: CYANOCOBALAMIN (B-12) 500 MCG TABLET PO SCH (08:48)
[2021-08-15] MEDS: CHOLECALCIFEROL 1,000 UNITS 25 MCG TAB PO SCH (08:48)
[2021-08-15] MEDS: FLUTICASONE PROPIONATE NA SPR 16 GM BTL NAE SCH (08:49)
[2021-08-15] MEDS: ASPIRIN 81 MG ECTAB PO SCH (08:49)
[2021-08-15] MEDS: PYRIDOXINE HCL 50 MG TAB PO SCH ×2 (08:49→20:53)
[2021-08-15] MEDS: AZELASTINE HCL 0.1% NASAL 200 SPRAYS/27,400 MCG BTL NAE SCH ×2 (08:50→20:54)
[2021-08-15] MEDS ORDERED: WARFARIN SOD 2 MG TAB PO SCH (09:00)
[2021-08-15] MEDS ORDERED: FUROSEMIDE 40 MG/4 ML VIAL IV ONE ×2 (09:00→22:00)
[2021-08-15] MEDS ORDERED: AMIODARONE 200 MG TAB PO SCH (09:00)
[2021-08-15] MEDS ORDERED: POTASSIUM CHLORIDE CRTAB 20 MEQ TABCR PO SCH (09:00)
--- NOTE | 2021-08-15 10:09 | Nephrology Consultation ---
Date of Consultation August 15, 2021 Assessment & Plan (1) CKD (chronic kidney disease) stage 4, GFR 15-29 ml/min: CKD stage IV with a baseline creatinine of around 2.1-2.9, his renal functions fluctuate with his diuretic use. He has been somewhat noncompliant with diuretic dosing changes it if he feels so. Was on 40 of torsemide when he saw me in June which was increased by cardiology, not sure how much he was taking before this admission. -Renal functions have declined, with raised transaminases, his weight has climbed to 77.4 kg from 70.7 kg when he saw me in July 08, 2021. -Agree with increasing Lasix dose to 40 mg twice daily. -Input and output Daily BMP Daily standing weights 2 g sodium diet. -Raised LFTs could be due to congestion, but he is also on amiodarone. -Recommend ultrasound scan and viral screen (2) SOB (shortness of breath): His white cell counts are raised, chest x-ray does not show new consolidation -Agree with antibiotics -Daily dose -Follow-up on cultures. (3) Chronic heart failure with reduced ejection fraction and diastolic dysfunction: As above (4) CHF exacerbation: History of Present Illness Reason for Consultation: ERICK on CKD Attending Physician: Ken Mendiola MD History of Present Illness 81-year-old male with complicated past medical history. HTN, chronic HFrEF, EF 20-25% on echo 2020, s/p ICD, ventricular tachycardia, LBBB, moderate aortic stenosis, CKD IV, arterial thrombosis, chronic anemia, pleural effusions, lymphoma treated with chemotherapy, myelodysplastic syndrome and other problems listed below presented to ER with complaint of shortness of breath and productive cough. CKD stage IV baseline creatinine varies between 2.1-2.9 depending upon his diuretic use. Somewhat noncompliant with his diuretic regime. Multiple admissions in the past with with fluid overload and shortness of breath. Was on 40 mg of torsemide when he saw me on June, increased by cardiology to 40 mg BID for 3 days. Not sure how much he is taking. ER labs were significant for his white cell count normal procalcitonin raised BNP. Chest x-ray was significant for tiny bilateral pleural effusion and mild pulmonary edema. Admitting serum creatinine was 3.06 and increased to 3.37 today. Deranged liver function with a raised AST ALT.Bi lateral pedal edema exam but not in respiratory distress, reports of productive cough. Allergies Allergy/AdvReac Type Severity Reaction Status Date / Time RYLEE Inhibitors AdvReac Intermediate Renal Verified 08/14/21 15:57 Complications Home Medications Medication Instructions Recorded Confirmed Type azelastine 137 mcg (0.1 %) nasal 2 spray INTRANASAL BID 03/11/21 08/14/21 History spray aerosol cholecalciferol (vitamin D3) 25 25 mcg PO QAM 03/11/21 08/14/21 History mcg (1,000 unit) tablet (Vitamin D3) cyanocobalamin (vitamin B-12) 1,000 mcg PO QAM 03/11/21 08/14/21 History 1,000 mcg tablet (Vitamin B-12) fluticasone propionate 50 1 spray INTRANASAL DAILY 03/11/21 08/14/21 History mcg/actuation nasal spray,suspension levothyroxine 75 mcg tablet 75 mcg PO DAILYBB 03/11/21 08/14/21 History pyridoxine (vitamin B6) 100 mg 100 mg PO AMPM 03/11/21 08/14/21 History tablet (Vitamin B-6) triamcinolone acetonide 0.1 % 1 applic TOPICAL HS PRN 03/11/21 08/14/21 History topical ointment aspirin 81 mg tablet,delayed 81 mg PO QAM #30 tab 03/20/21 08/14/21 Rx release amiodarone 200 mg tablet 200 mg PO QAM 05/14/21 08/14/21 History torsemide 20 mg tablet 40 mg PO BID 05/14/21 08/14/21 History atorvastatin 40 mg tablet 40 mg PO HS 05/16/21 08/14/21 History gabapentin 100 mg capsule 100 mg PO AMPM PRN 08/14/21 08/14/21 History metoprolol succinate 25 mg 12.5 mg PO HS 08/14/21 08/14/21 History tablet,extended release 24 hr potassium chloride 20 mEq 40 meq PO QAM 08/14/21 08/14/21 History tablet,extended release(part/cryst) warfarin 2 mg tablet 2 mg PO DAILY 08/14/21 08/14/21 History Patient History Medical History Anemia due to chronic disease treated with erythropoietin Anemia in CKD (chronic kidney disease) Aortic stenosis, moderate Cardiorenal syndrome with renal failure Chronic heart failure with reduced ejection fraction and diastolic dysfunction CKD (chronic kidney disease) stage 4, GFR 15-29 ml/min CLL (chronic lymphocytic leukemia) H/O: rheumatic fever HTN (hypertension) ICD (implantable cardioverter-defibrillator) in place LBBB (left bundle branch block) MDS (myelodysplastic syndrome), low grade Nocturnal hypoxemia HAWA (obstructive sleep apnea) Paroxysmal atrial fibrillation Prostate cancer Tobacco use disorder Surgical History H/O uvulectomy H/O vascular surgery LLE: thrombectomy at [facility] S/P tonsillectomy and adenoidectomy Family History Other Family history non-contributory Social History Smoking Status: Former smoker Tobacco Type: Cigarettes Smoking End Date: 05/2021; Second Hand Exposure: No; Hx Alcohol Use: No Hx Substance Use: No Preferred Language: Welsh Communication Ability: Effective Communication Ability Comment: only reads and writes a litttle Machine Bookkeeper Required: No Beliefs That Will Affect Care: None marital status: / Current Living Situation: Significant Other Current Living Situation Comment: Pt lives with girlfriend Zaira [place] How many Children do You have: 4 Feels Safe at Home: Yes Safety Concerns: Feels Safe At This Time Assistive Devices: Cane and Walker Review of Systems Review of Systems: All systems reviewed & are unremarkable except as noted in HPI & below Physical Exam Physical Exam: General: no distress, WD WN, chronic ill ap pearing Head: n ormocephalic, atra umatic Eyes: PE RRL, EOM's intact, conjunctiva non-i njected, anicteric ENT: normal in spection external ears, nose, mucous membranes moist Neck: supple, tr achea midline L ungs: no respirato ry distress, +rhon chi CV: regular , +systolic murmur , 2+ pretibial baltazar ma Abd: normal BS, soft, non-tend er Ext: no cyan osis or erythema, no calf tenderness , left heel tender to palpation Neuro: A&O x 3, n o focal deficits n oted, normal affec t Skin: warm, d ry Results & Data ([facility]) Vital Signs (Past 12 Hours) Vital Signs Temp Pulse Pulse Resp BP Pulse Ox 08/15/21 07:55 36.5 C 65 20 129/70 91 08/15/21 04:19 36.6 C 67 20 100/66 92 08/14/21 23:41 76 08/14/21 23:00 36.8 C 87 22 106/67 92 Laboratory Results 08/15/21 05:45 08/15/21 05:45
[2021-08-15] MEDS ORDERED: CONSULT PHARMACY STA (10:49)
[2021-08-15] MEDS ORDERED: XOPENEX/ATROVENT 0.63mg/0.5MG NEB COMBO NEB SCH (10:50)
--- NOTE | 2021-08-15 11:09 | XRay Report ---
XR chest 1V portable CLINICAL HISTORY: ff up CHF, evaluate for pneumonia. COMPARISON STUDY: 08/14/2021 TECHNIQUE: 1 view of the chest FINDINGS: Single frontal view of the chest demonstrates the heart to again be enlarged with permanent cardiac p acer in place. Compared to previous examination, there is again evidence for central vascular congest ion. There appears to be fluid present within the right major fissure. No definite confluent alveolar opacities are identified. No definite left pleural effusion is seen. No peripheral interstitial jovanny a is identified. There is no acute osseous pathology. IMPRESSION: 1. Compared to previous examination, there is again evidence for central vascular congestion. 2. Increasing right pleural effusion with evidence for fluid within the right major fissure. ACT 112: Negative or not required by law. Electronically signed by: Mohan Rueda M.D. 08/15/2021 11:07 AM
[2021-08-15] MEDS: CEFEPIME 2,000 MG in SYRINGE 0 ML IV SCH (11:36)
[2021-08-15] MEDS: DOXYCYCLINE HYCLATE 100 MG CAP PO SCH ×2 (11:36→20:53)
--- NOTE | 2021-08-15 11:45 | Cardiology Consultation ---
Date of Consultation August 15, 2021 Assessment & Plan (1) SOB (shortness of breath): (2) Cough: (3) Aortic stenosis, moderate: (4) Cardiorenal syndrome with renal failure: (5) Chronic heart failure with reduced ejection fraction and diastolic dysfunction: (6) CKD (chronic kidney disease) stage 4, GFR 15-29 ml/min: (7) LBBB (left bundle branch block): (8) CLL (chronic lymphocytic leukemia): (9) HTN (hypertension): (10) HAWA (obstructive sleep apnea): (11) Tobacco use disorder: (12) Embolism, arterial, leg, left: (13) Ventricular tachycardia: (14) Ischemic cardiomyopathy: (15) Elevated transaminase level: (16) Anemia due to chronic disease treated with erythropoietin: (17) Bronchitis: (18) Anemia in CKD (chronic kidney disease): From a cardiac standpoint I do not have much to add at this time. Patient's diuretics are being managed by our nephrology colleagues. No other medication changes will be made at this time. No further cardiac testing indicated at this time. History of Present Illness Reason for Consultation: Shortness of breath Requesting Physician: [facility] hospitalist group Attending Physician: Ken Mendiola MD History of Present Illness Mr. Toledo is a very pleasant yet medically complex 81-year-old gentleman who is very well-known to our cardiology group. He presented to [facility] on 08/14/2021 with complaints of shortness of breath and a productive cough with yellow/brown sputum. Currently, the patient is not responding appropriately to questions but is awake. History obtained through review of medical records and discussing with nursing staff. PMHX: 1. Recent admission for acute systolic HF exacerbation with placement of BiV ICD 2. Non sustained VT - 3. History of Paroxysmal afib - currently NSR on amiodarone, metoprolol and coumadin 4. Elevated LFT's, CKD 5. 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 Chronic coumadin. Follows with [facility] 6. Left bundle branch block - chronic. 7. Moderate aortic stenosis- stable 8. Hypertension - controlled 9. Myelodysplastic syndrome with worsening anemia recently 10. History of T-cell lymphoma Allergies Allergy/AdvReac Type Severity Reaction Status Date / Time RYLEE Inhibitors AdvReac Intermediate Renal Verified 08/14/21 15:57 Complications Home Medications Medication Instructions Recorded Confirmed Type azelastine 137 mcg (0.1 %) nasal 2 spray INTRANASAL BID 03/11/21 08/14/21 History spray aerosol cholecalciferol (vitamin D3) 25 25 mcg PO QAM 03/11/21 08/14/21 History mcg (1,000 unit) tablet (Vitamin D3) cyanocobalamin (vitamin B-12) 1,000 mcg PO QAM 03/11/21 08/14/21 History 1,000 mcg tablet (Vitamin B-12) fluticasone propionate 50 1 spray INTRANASAL DAILY 03/11/21 08/14/21 History mcg/actuation nasal spray,suspension levothyroxine 75 mcg tablet 75 mcg PO DAILYBB 03/11/21 08/14/21 History pyridoxine (vitamin B6) 100 mg 100 mg PO AMPM 03/11/21 08/14/21 History tablet (Vitamin B-6) triamcinolone acetonide 0.1 % 1 applic TOPICAL HS PRN 03/11/21 08/14/21 History topical ointment aspirin 81 mg tablet,delayed 81 mg PO QAM #30 tab 03/20/21 08/14/21 Rx release amiodarone 200 mg tablet 200 mg PO QAM 05/14/21 08/14/21 History torsemide 20 mg tablet 40 mg PO BID 05/14/21 08/14/21 History atorvastatin 40 mg tablet 40 mg PO HS 05/16/21 08/14/21 History gabapentin 100 mg capsule 100 mg PO AMPM PRN 08/14/21 08/14/21 History metoprolol succinate 25 mg 12.5 mg PO HS 08/14/21 08/14/21 History tablet,extended release 24 hr potassium chloride 20 mEq 40 meq PO QAM 08/14/21 08/14/21 History tablet,extended release(part/cryst) warfarin 2 mg tablet 2 mg PO DAILY 08/14/21 08/14/21 History Patient History Medical History Anemia due to chronic disease treated with erythropoietin Anemia in CKD (chronic kidney disease) Aortic stenosis, moderate Cardiorenal syndrome with renal failure Chronic heart failure with reduced ejection fraction and diastolic dysfunction CKD (chronic kidney disease) stage 4, GFR 15-29 ml/min CLL (chronic lymphocytic leukemia) H/O: rheumatic fever HTN (hypertension) ICD (implantable cardioverter-defibrillator) in place LBBB (left bundle branch block) MDS (myelodysplastic syndrome), low grade Nocturnal hypoxemia HAWA (obstructive sleep apnea) Paroxysmal atrial fibrillation Prostate cancer Tobacco use disorder Surgical History H/O uvulectomy H/O vascular surgery LLE: thrombectomy at [facility] S/P tonsillectomy and adenoidectomy Family History Other Family history non-contributory Social History Smoking Status: Former smoker Tobacco Type: Cigarettes Smoking End Date: 05/2021; Second Hand Exposure: No; Hx Alcohol Use: No Hx Substance Use: No Preferred Language: Angolan Communication Ability: Effective Communication Ability Comment: only reads and writes a litttle Alliance Manager Required: No Beliefs That Will Affect Care: None marital status: / Current Living Situation: Significant Other Current Living Situation Comment: Pt lives with girlfriend Zaira Toledo How many Children do You have: 4 Feels Safe at Home: Yes Safety Concerns: Feels Safe At This Time Assistive Devices: Cane and Walker Review of Systems Review of Systems: All systems reviewed & are unremarkable except as noted in HPI & below and Unobtainable due to reduced consciousness Physical Exam Physical Exam: General: Awake and moaning. Not responding to direct questioning HEENT: Normocephalic, atraumatic. Pupils equal, round and reactive to light and accommodation. Extraocular muscles are intact. Anicteric sclera. Moist mucous membranes. Neck: No JVD. No bruit. Cardiovascular: Regular. Positive S-4. Normal S-1 and S-2. No S-3. 3/6 mid to late systolic ejection murmur, greatest at the right sternal border, second intercostal space with radiation to the bilateral carotids. No rubs. Pulmonary: Clear to auscultation bilaterally. No rales, rhonchi, or wheezing. Abdomen: Bowel sounds x 4, soft. No rebound, guarding or tenderness. No organomegaly. Extremities: No clubbing, cyanosis or edema. +2 pedal pulses bilaterally. Skin: Warm and dry. Results & Data ([facility]) Vital Signs (Past 12 Hours) Vital Signs Temp Pulse Resp BP Pulse Ox 08/15/21 07:55 36.5 C 65 20 129/70 91 08/15/21 04:19 36.6 C 67 20 100/66 92
[2021-08-15] MEDS: LEVALBUTEROL HCL 0.63 MG/3 ML NEB NEB SCH ×3 (11:50→19:09)
[2021-08-15] MEDS: IPRATROPIUM BROMIDE NEB SOLN 0.02% 2.5 ML VIAL INH SCH ×3 (11:51→19:09)
--- NOTE | 2021-08-15 13:54 | Hospitalist Progress Note ---
Date of Service August 15, 2021 Assessment & Plan (1) SOB (shortness of breath): (2) Cough: (3) Acute on chronic HFrEF (heart failure with reduced ejection fraction): (4) Ischemic cardiomyopathy: (5) ICD (implantable cardioverter-defibrillator) in place: (6) Bronchitis: Plan: per admitting service notes with addendum: Patient is 81-year-old male with PMH HTN, chronic HFrEF, EF 20-25% on echo 2020, s/p ICD, ventricular tachycardia, LBBB, moderate aortic stenosis, CKD IV, arterial thrombosis, chronic anemia, pleural effusions, lymphoma treated with chemotherapy, myelodysplastic syndrome and other problems listed below presented to ER with complaint of shortness of breath and productive cough, rhinorrhea x 1 day. Denies fever/chills, CP. Recent h/o hospitalization for acute on chronic HFrEF, pleural effusions s/p bilateral thoracentesis, ICD placement on 06/15/2021, Today in ER afebrile, no hypoxia, other vitals stable. WBC: 12, procalcitonin: 0.09. BNP: >4700, troponin: 0.03. Negative SARS CoV2 NAAT test. CXR: Possible tiny bilateral pleural effusions, decreased from prior exam. Previously noted airspace opacities have resolved. There is mild pulmonary edema. In ER was given cefepime, vancomycin, lasix 40mg IV, calcium gluconate 1000mg IV Likely SOB and cough secondary to acute on chronic CHF. Possible bronchitis. No infiltrates noted on CXR at this time. History echo 05/15/2021: EF: 25-30%, large sized apical, septal, anterior septal, anterior and lateral wall motion abnormality with hypokinesis to akinesis of the segments. Mild diffuse right ventricular hypokinesis, moderate mitral regurgitation, mild to moderate tricuspid regurgitation, mild aortic valve stenosis, severe pulmonary hypertension, grade 2 diastolic dysfunction, Negative MRSA swab Blood cultures pending, sputum culture pending Start Rocephin Lasix 40mg IV BID, hold home torsemide Monitor I's &O's, daily weight, low sodium diet, fluid restriction 1500ml Continue aspirin, metoprolol, atorvastatin Cardiology consult CBC. BMP in am 08/15/21 repeat CXR: 1. Compared to previous examination, there is again evidence for central vascular congestion. 2. Increasing right pleural effusion with evidence for fluid within the right major fissure. Lasix 40mg IV BID monitor I and Os monitor renal function discussed with Nephrology SVC change antibiotic to Cefepime + Doxy Nebs q6h ff up sputum and blood culture Elevated LFTs normal alk phos from hepatic congestion? Liver US and Hep Panel ordered ff liver panel daily (7) CKD (chronic kidney disease) stage 4, GFR 15-29 ml/min: Plan: Cr: 3.0. Has been running 2-2.9 over the past 2 months. crea 3.3 as above (8) Paroxysmal atrial fibrillation: Plan: Current paced rhythm INR: 4.4 hold coumadin continue amiodarone, metoprolol (9) Pleural effusion: Plan: History bilateral pleural effusions requiring thoracentesis in the recent past diuresis as per #1 (10) Anemia in CKD (chronic kidney disease): Plan: Hgb: 9.0. Around recent baseline Monitor H&H History left lower extremity embolism S/P emergent thrombectomy in 03/2021 Continue aspirin hold coumadin for elevated INR History HAWA Not currently using CPAP DVT Prophylaxis INR supratherapeutic Full Code as per discussion with pt Follows with Dr Healy for routine care plan of care discussed with patient in detail and at length all questions answered he is understanding, agreeable, comfortable with the plan of care Admission and Anticipated Discharge Date Admission Date: August 14, 2021 Subjective ff up for acute on chronic CHF exacerbation, acute bronchitis, etc seen resting in bed, sleeping but easily awakened oriented, answers questions appropriately states he feels about the same as yesterday still has productive cough, no chills no active dyspnea on exam no chest pain, palpitations, dizziness no abdominal pain, nausea/vomiting no other symptoms Review of Systems Review of Systems: all noted and negative except for above Physical Exam Physical Exam: all noted and negative except for above Results & Data Results & Data ([facility]) Vital Signs (Past 12 Hours) Vital Signs Temp Pulse Resp BP Pulse Ox 08/15/21 12:09 86 24 99 08/15/21 11:55 36.4 C L 65 20 119/72 91 08/15/21 07:55 36.5 C 65 20 129/70 91 08/15/21 04:19 36.6 C 67 20 100/66 92 all noted and reviewed including below
[2021-08-15] MEDS: FUROSEMIDE 40 MG/4 ML VIAL IV SCH ×2 (15:51→16:06)
[2021-08-15] MEDS ORDERED: methylPREDNISolone 40 MG in SYRINGE 0 ML IV STA (16:04)
[2021-08-15] MEDS ORDERED: FUROSEMIDE INJ 20 MG/2 ML VIAL IV ONE (16:15)
[2021-08-15 16:23] LABS: Base Excess ABG -12.5 mEq/L (-9-1.8); HCO3 ABG 13 mmol/L (19-24); Oxygen Saturation ABG 94.1 % (90-95); PCO2 ABG 30 mmHg (35-46); PO2 ABG 81 mmHg (80-95); pH ABG 7.26 (7.35-7.45)
[2021-08-15 16:24] LABS: Allen Test Pos (Pos)
[2021-08-15 16:55] LABS: BUN Creatinine Ratio 18.6 (10-20); Calcium 9.8 mg/dl (8.5-10.1); Creatinine Clr Calc Pharmacy 15.1 ml/min; Est GFR (African American) 16.5 ml/min; Est GFR (Non-African American) 14.2 ml/min
[2021-08-15] MEDS ORDERED: SODIUM POLYSTYRENE SULFONATE 15G/60ML SUSP PO STA (17:09)
[2021-08-15] MEDS ORDERED: DEXTROSE 50% 50 ML SYRINGE IV STA (17:26)
[2021-08-15] MEDS ORDERED: INSULIN HUMAN REGULAR PER UNIT 10 UNITS in SYRINGE 9.9 ML IV STA (17:26)
[2021-08-15] MEDS ORDERED: SODIUM BICARB 8.4% INJ 50 MEQ/50 ML SYR IV ONE (17:30)
[2021-08-15] MEDS ORDERED: PROMETHAZINE HCL 6.25 MG in SODIUM CHLORIDE 0.9% 50 ML IV PRN (18:30)
--- NOTE | 2021-08-15 18:53 | Ultrasound Report ---
US liver LIMITED ABDOMEN CLINICAL HISTORY: elevated LFTs. COMPARISON: 05/15/2021 TECHNIQUE: Multiple grayscale and color images of the right upper quadrant of the abdomen. FINDINGS: The study is limited by overlying bowel gas. Pancreas: The body of the pancreas is within normal limits with no focal mass or peripancreatic fluid collection identified. Head and tail are excluded by overlying bowel gas. Liver: The liver is homogeneous in mildly increased echogenicity There is no evidence for a focal mas s. There is no intrahepatic biliary duct dilatation. Gallbladder: Gallbladder is partially contracted with a stone seen within the neck of the gallbladde r. There is gallbladder wall thickening related to the contracted gallbladder. There is no pericholec ystic edema. There was reportedly a negative sonographic Bradley's sign. Common Bile Duct: (CBD): It is normal in size measuring 3 mm. Inferior Vena Cava (IVC): The imaged IVC is patent. Right kidney: There is no evidence for hydronephrosis, calculus or gross renal mass. The kidney is n ormal in size. It measures 9.8 cm in greatest length. Compared to previous study, there is increased fluid seen over the dome of the liver. IMPRESSION: 1. Limited examination due to overlying bowel gas. 2. Increased echogenicity of the liver. 3. Cholelithiasis with no ultrasound evidence for acute cholecystitis. 4. Increase fluid over the dome of the liver characteristic of increased ascites. ACT 112: Negative or not required by law. Electronically signed by: Mohan Rueda M.D. 08/15/2021 6:52 PM
[2021-08-15] MEDS: METOPROLOL SUCC 25MG EXT REL TAB PO SCH (20:51)
[2021-08-15] MEDS: ATORVASTATIN 40 MG TAB PO SCH (20:53)
[2021-08-15 21:46] LABS: Calcium 9.4 mg/dl (8.5-10.1); Creatinine Clr Calc Pharmacy 14.2 ml/min; Est GFR (African American) 15.3 ml/min; Est GFR (Non-African American) 13.2 ml/min; Potassium 5.4 mmol/L (3.5-5.1)
[2021-08-16] MEDS ORDERED: methylPREDNISolone 40 MG in SYRINGE 0 ML IV SCH
[2021-08-16] MEDS: LEVALBUTEROL HCL 0.63 MG/3 ML NEB NEB SCH ×4 (00:01→19:13)
[2021-08-16] MEDS: IPRATROPIUM BROMIDE NEB SOLN 0.02% 2.5 ML VIAL INH SCH ×4 (00:01→19:12)
[2021-08-16] MEDS ORDERED: SODIUM BICARB 8.4% INJ 50 MEQ/50 ML SYR IV STA (01:23)
[2021-08-16] MEDS: LEVOTHYROXINE SODIUM 75 MCG TABLET PO SCH (05:34)
[2021-08-16] MEDS: FUROSEMIDE 40 MG/4 ML VIAL IV SCH ×2 (05:55→18:12)
[2021-08-16] MEDS ORDERED: MoRPHine SULFATE 2 MG/ML CARP IV STA (06:06)
--- NOTE | 2021-08-16 06:48 | Electrocardiogram Report ---
Test Reason : Blood Pressure : / mmHG Vent. Rate : 067 BPM Atrial Rate : 250 BPM P-R Int : 000 ms QRS Dur : 134 ms QT Int : 432 ms P-R-T Axes : 000 078 -83 degrees QTc Int : 456 ms AV dual-paced rhythm Abnormal ECG When compared with ECG of 14-AUG-2021 13:22, Vent. rate has decreased BY 3 BPM AV dual-paced rhythm is now present Confirmed by William Pastrana ([id number]) on 08/16/2021 6:48:19 AM Referred By: REFERRED SELF Confirmed By:William Pastrana
[2021-08-16 07:48] LABS: BUN Creatinine Ratio 20.4 (10-20); Calcium 8.1 mg/dl (8.5-10.1); Creatinine Clr Calc Pharmacy 14.4 ml/min; Est GFR (African American) 15.5 ml/min; Est GFR (Non-African American) 13.4 ml/min; Potassium 4.5 mmol/L (3.5-5.1)
[2021-08-16 07:49] LABS: Prothrombin Time 63.1 Seconds (9.0-12.0)
[2021-08-16 07:51] LABS: INR 6.6 (0.9-1.1)
[2021-08-16 07:52] LABS: Albumin Level 3.4 gm/dl (3.4-5.0); Bilirubin,Total 3.1 mg/dl (0.2-1.0); Magnesium 2.5 mg/dl (1.7-2.4); Total Protein 5.8 gm/dl (6.0-8.3)
[2021-08-16] MEDS: ASPIRIN 81 MG ECTAB PO SCH (08:05)
[2021-08-16] MEDS: AZELASTINE HCL 0.1% NASAL 200 SPRAYS/27,400 MCG BTL NAE SCH ×2 (08:06→20:20)
[2021-08-16] MEDS: CYANOCOBALAMIN (B-12) 500 MCG TABLET PO SCH (08:07)
[2021-08-16] MEDS: CHOLECALCIFEROL 1,000 UNITS 25 MCG TAB PO SCH (08:07)
[2021-08-16] MEDS: FLUTICASONE PROPIONATE NA SPR 16 GM BTL NAE SCH (08:08)
[2021-08-16] MEDS: DOXYCYCLINE HYCLATE 100 MG CAP PO SCH ×2 (08:08→20:20)
[2021-08-16] MEDS: PYRIDOXINE HCL 50 MG TAB PO SCH ×2 (08:09→20:20)
--- NOTE | 2021-08-16 08:22 | Pulmonary Consultation ---
Date of Consultation August 16, 2021 Assessment & Plan (1) Pneumonia: Laterality: right Lung location: lower lobe of lung Pneumonia type: due to unspecified organism Qualified Code(s): J18.9 - Pneumonia, unspecified organism (2) Chronic heart failure with reduced ejection fraction and diastolic dysfunction: (3) Aortic stenosis, moderate: (4) SOB (shortness of breath): (5) Hypoxemia: Impression: 81-year-old male with a multiplicity of medical issues admitted with cough shortness of breath and hypoxemia. I suspect that his complaints are multifactorial. He does have a new right upper lobe infiltrate and with an elevated white blood cell count, there is concern for infectious process/pneumonia. Recommendations: 1. Probable pneumonia: Cultures are negative however his white count is elevated. Not sure what to make of a normal procalcitonin but do not think this excludes infection. The patient is currently day number 3 antibiotics. He initially received Rocephin and is now been escalated to doxycycline and cefepime which should be more than adequate coverage for pneumonia. May be able to de-escalate once the patient clinically improves. Await culture data. 2. Hypoxemic respiratory failure: Continue to wean oxygen as tolerated. 3. Patient has a multitude of other issues including heart failure, transaminitis, markedly elevated INR, and respiratory alkalosis. Additional management work-up is deferred to the patient's primary care provider but certainly these issues may be contributing to his overall systemic complaints of feeling poorly. 4. History of pleural effusion: His current imaging and exam do not suggest reaccumulation of pleural fluid and would not attribute his current symptoms to pleural effusion. We will follow his CXR. Increased diuresis as tolerated by kidney function and HD. Would not consider invasive pleural procedures unless the patient's INR was less than 1.5. The above recommendations and plan were discussed with the patient in detail. Questions were answered to the best of my ability. We will continue to follow with you. History of Present Illness Attending Physician: Ken Mendiola MD History of Present Illness Asked by hospitalist to assist with evaluation management this patient admitted 08/15/2019 3-year-old with shortness of breath. History is obtained from reviewed electronic medical record as well as discussion with the patient. This 81-year-old male has a history of heart failure aortic stenosis chronic kidney disease myelodysplastic syndrome. We did seen him previously for transudate of pleural effusion. He presented to the hospital complaining of several days of feeling poorly with cough productive of yellow phlegm. He was afebrile with a normal white count and an elevated BNP. He was treated with cefepime Lasix and vancomycin in the emergency room. Cardiology consultation was obtained. They felt they had little to add at this point time. Nephrology consultation was also obtained. They recommended increasing his Lasix to 40 mg twice a day. Patient feels that he is making some slow and steady progress but is not back to baseline. Pulmonary was consulted for "hypoxemic respiratory failure/CHF". Patient does have lower extremity edema. Allergies Allergy/AdvReac Type Severity Reaction Status Date / Time RYLEE Inhibitors AdvReac Intermediate Renal Verified 08/14/21 15:57 Complications Home Medications Medication Instructions Recorded Confirmed Type azelastine 137 mcg (0.1 %) nasal 2 spray INTRANASAL BID 03/11/21 08/14/21 History spray aerosol cholecalciferol (vitamin D3) 25 25 mcg PO QAM 03/11/21 08/14/21 History mcg (1,000 unit) tablet (Vitamin D3) cyanocobalamin (vitamin B-12) 1,000 mcg PO QAM 03/11/21 08/14/21 History 1,000 mcg tablet (Vitamin B-12) fluticasone propionate 50 1 spray INTRANASAL DAILY 03/11/21 08/14/21 History mcg/actuation nasal spray,suspension levothyroxine 75 mcg tablet 75 mcg PO DAILYBB 03/11/21 08/14/21 History pyridoxine (vitamin B6) 100 mg 100 mg PO AMPM 03/11/21 08/14/21 History tablet (Vitamin B-6) triamcinolone acetonide 0.1 % 1 applic TOPICAL HS PRN 03/11/21 08/14/21 History topical ointment aspirin 81 mg tablet,delayed 81 mg PO QAM #30 tab 03/20/21 08/14/21 Rx release amiodarone 200 mg tablet 200 mg PO QAM 05/14/21 08/14/21 History torsemide 20 mg tablet 40 mg PO BID 05/14/21 08/14/21 History atorvastatin 40 mg tablet 40 mg PO HS 05/16/21 08/14/21 History gabapentin 100 mg capsule 100 mg PO AMPM PRN 08/14/21 08/14/21 History metoprolol succinate 25 mg 12.5 mg PO HS 08/14/21 08/14/21 History tablet,extended release 24 hr potassium chloride 20 mEq 40 meq PO QAM 08/14/21 08/14/21 History tablet,extended release(part/cryst) warfarin 2 mg tablet 2 mg PO DAILY 08/14/21 08/14/21 History Patient History Medical History Anemia due to chronic disease treated with erythropoietin Anemia in CKD (chronic kidney disease) Aortic stenosis, moderate Cardiorenal syndrome with renal failure Chronic heart failure with reduced ejection fraction and diastolic dysfunction CKD (chronic kidney disease) stage 4, GFR 15-29 ml/min CLL (chronic lymphocytic leukemia) H/O: rheumatic fever HTN (hypertension) ICD (implantable cardioverter-defibrillator) in place LBBB (left bundle branch block) MDS (myelodysplastic syndrome), low grade Nocturnal hypoxemia HAWA (obstructive sleep apnea) Paroxysmal atrial fibrillation Prostate cancer Tobacco use disorder Surgical History H/O uvulectomy H/O vascular surgery LLE: thrombectomy at [facility] S/P tonsillectomy and adenoidectomy Family History Other Family history non-contributory Social History Smoking Status: Former smoker Tobacco Type: Cigarettes Smoking End Date: 05/2021; Second Hand Exposure: No; Hx Alcohol Use: No Hx Substance Use: No Preferred Language: Greek Communication Ability: Effective Communication Ability Comment: only reads and writes a litttle [employer] Required: No Beliefs That Will Affect Care: None marital status: / Current Living Situation: Significant Other Current Living Situation Comment: Pt lives with girlfriend Zaira [place] How many Children do You have: 4 Feels Safe at Home: Yes Safety Concerns: Feels Safe At This Time Assistive Devices: Cane and Walker Review of Systems Review of Systems: Please refer to the admission H&P. I have no additions or deletions Physical Exam Constitutional: WD/WN, vitals as above Neck: trachea midline, no thyromegaly Respiratory: + tachypneic; no respiratory distress and no labored breathing Auscultation: + crackles, + rhonchi and + wheezes Cardiovascular: RRR, no murmur, no edema Gastrointestinal (Abdomen): normal bowel sounds, soft, nontender, no hepatosplenomegaly Musculoskeletal: Extremities: extremities normal to inspection Skin: no rashes, warm and dry Neurologic: Nonfocal exam Lymphatic: no cervical lymphadenopathy Results & Data Results & Data ([facility]) Vital Signs (Past 12 Hours) Vital Signs Temp Pulse Pulse Resp BP Pulse Ox 08/16/21 07:18 71 22 97 08/16/21 07:09 36.3 C L 71 22 117/66 93 08/16/21 03:09 58 L 29 H 99 08/16/21 00:01 65 24 98 08/15/21 23:57 36.3 C L 66 18 117/74 93 08/15/21 22:10 60 29 H 98 Critical Care Results & Data Vital Signs (Past 12 Hours) Vital Signs Temp Pulse Pulse Resp BP Pulse Ox 08/16/21 07:18 71 22 97 08/16/21 07:09 36.3 C L 71 22 117/66 93 08/16/21 03:09 58 L 29 H 99 08/16/21 00:01 65 24 98 08/15/21 23:57 36.3 C L 66 18 117/74 93 08/15/21 22:10 60 29 H 98 Lab & Micro Results (Past 24 Hours) No Data to Display Na 137 mmol/L (136-145) 08/16/21 K 4.5 mmol/L (3.5-5.1) 08/16/21 Cl 101 mmol/L (98-107) 08/16/21 CO2 21 mmol/L (21-32) 08/16/21 Anion Gap 15 (3-11) H 08/16/21 BUN 81 mg/dl (6-23) H 08/16/21 Creatinine 3.97 mg/dl (0.6-1.4) H 08/16/21 Estimated GFR ( Amer) 15.5 ml/min 08/16/21 Estimated GFR (Non-Af Amer) 13.4 ml/min 08/16/21 BUN/Creatinine Ratio 20.4 (10-20) H 08/16/21 Glu 123 mg/dl (70-99(Fasting)) H 08/16/21 Ca 8.1 mg/dl (8.5-10.1) L 08/16/21 Total Bilirubin 3.1 mg/dl (0.2-1.0) H 08/16/21 Direct Bilirubin 2.0 mg/dl (0-0.2) H 08/16/21 AST 2138 U/L (13-39) H 08/16/21 ALT 1323 U/L (7-52) H 08/16/21 Alkaline Phosphatase 103 U/L (34-104) 08/16/21 TP 5.8 gm/dl (6.0-8.3) L 08/16/21 Albumin 3.4 gm/dl (3.4-5.0) 08/16/21 Mg 2.5 mg/dl (1.7-2.4) H 08/16/21 07:05 08/16/21 Calcium Level 8.1 mg/dl (8.5-10.1) L 08/16/21 07:05 08/16/21 Prothromb Time International Ratio 6.6 (0.9-1.1) H* 08/16/21 07:05 08/16/21 Blood Gas Barometric Pressure 729.7 mm/Hg 08/15/21 16:11 08/15/21 Arterial Blood pH 7.26 (7.35-7.45) L 08/15/21 16:11 08/15/21 Arterial Blood Partial Pressure CO2 30 mmHg (35-46) L 08/15/21 16:11 08/15/21 Arterial Blood Partial Pressure O2 81 mmHg (80-95) 08/15/21 16:11 08/15/21 Arterial Blood HCO3 13 mmol/L (19-24) L 08/15/21 16:11 08/15/21 Arterial Blood Base Excess -12.5 mEq/L (-9-1.8) L 08/15/21 16:11 08/15/21 Arterial Blood Oxygen Saturation 94.1 % (90-95) 08/15/21 16:11 08/15/21 Blood Gas Oxygen Given 2 08/15/21 16:11 08/15/21 Mau Test Pos (Pos) 08/15/21 16:11 08/15/21 Blood Gas Barometric Pressure 729.7 mm/Hg 08/15/21 16:11 08/15/21 Microbiology 08/14/21 13:33 Aerobic Blood Culture - Preliminary Blood No growth in Aerobic bottle after 24 hours. Anaerobic Blood Culture - Preliminary No growth in Anaerobic bottle after 24 hours. 08/14/21 13:46 Aerobic Blood Culture - Preliminary Blood No growth in Aerobic bottle after 24 hours. Anaerobic Blood Culture - Preliminary No growth in Anaerobic bottle after 24 hours. 08/14/21 16:42 Gram Stain - Final Sputum, Expectorated Sputum Culture - Preliminary Light normal annmarie present, final report to follow. Diagnostic Findings (Past 24 Hours) Liver Ultrasound 08/15/21 10:49 US liver LIMITED ABDOMEN CLINICAL HISTORY: elevated LFTs. COMPARISON: 05/15/2021 TECHNIQUE: Multiple grayscale and color images of the right upper quadrant of the abdomen. FINDINGS: The study is limited by overlying bowel gas. Pancreas: The body of the pancreas is within normal limits with no focal mass or peripancreatic fluid collection identified. Head and tail are excluded by overlying bowel gas. Liver: The liver is homogeneous in mildly increased echogenicity There is no evidence for a focal mass. There is no intrahepatic biliary duct dilatation. Gallbladder: Gallbladder is partially contracted with a stone seen within the neck of the gallbladder. There is gallbladder wall thickening related to the contracted gallbladder. There is no pericholecystic edema. There was reportedly a negative sonographic Bradley's sign. Common Bile Duct: (CBD): It is normal in size measuring 3 mm. Inferior Vena Cava (IVC): The imaged IVC is patent. Right kidney: There is no evidence for hydronephrosis, calculus or gross renal mass. The kidney is normal in size. It measures 9.8 cm in greatest length. Compared to previous study, there is increased fluid seen over the dome of the liver. IMPRESSION: 1. Limited examination due to overlying bowel gas. 2. Increased echogenicity of the liver. 3. Cholelithiasis with no ultrasound evidence for acute cholecystitis. 4. Increase fluid over the dome of the liver characteristic of increased ascites. ACT 112: Negative or not required by law. Electronically signed by: Mohan Rueda M.D. 08/15/2021 6:52 PM Chest X-Ray 08/15/21 10:54 XR chest 1V portable CLINICAL HISTORY: ff up CHF, evaluate for pneumonia. COMPARISON STUDY: 08/14/2021 TECHNIQUE: 1 view of the chest FINDINGS: Single frontal view of the chest demonstrates the heart to again be enlarged with permanent cardiac pacer in place. Compared to previous examination, there is again evidence for central vascular congestion. There appears to be fluid present within the right major fissure. No definite confluent alveolar opacities are identified. No definite left pleural effusion is seen. No peripheral interstitial edema is identified. There is no acute osseous pathology. IMPRESSION: 1. Compared to previous examination, there is again evidence for central vascular congestion. 2. Increasing right pleural effusion with evidence for fluid within the right major fissure. ACT 112: Negative or not required by law. Electronically signed by: Mohan Rueda M.D. 08/15/2021 11:07 AM I & O Totals 24 Hours 08/15/21 08/16/21 08/17/21 06:59 06:59 06:59 Intake Total 935 / 935 630.25 / 630.25 Output Total 350 / 350 450 / 450 Balance 585 / 585 180.25 / 180.25 Cumulative 08/14/21 12:43 thru 08/16/21 05:00 Intake Total 1565.25 Output Total 800 Balance 765.25 RT Ventilator Mngmt (Last Documented) Ventilator Ordered Settings Respiratory Rate 22 08/16/21 07:18 Fraction of Inspired Oxygen 30 08/15/21 22:10 Ventilator - PT Measurements Respiratory Rate 22 PG Care Time/CCT Total # of Minutes Spent Total Time Spent with Patient: Total time spent is greater than 50% in coordination of care (as documented) at patient's floor/unit and/or counseling patient: Coding Level of Care Code 04113 Initial Inpt Care Lvl 3 Diagnoses Pneumonia J18.9 Laterality: right Lung location: lower lobe of lung Pneumonia type: due to unspecified organism Chronic heart failure with reduced ejection fraction and diastolic dysfunction I50.42 Aortic stenosis, moderate I35.0 SOB (shortness of breath) R06.02 Hypoxemia R09.02
--- NOTE | 2021-08-16 08:24 | Cardiology Progress Note ---
Date of Service August 16, 2021 Assessment & Plan (1) SOB (shortness of breath): (2) Cough: (3) Aortic stenosis, moderate: (4) Cardiorenal syndrome with renal failure: (5) Chronic heart failure with reduced ejection fraction and diastolic dysfunction: (6) CKD (chronic kidney disease) stage 4, GFR 15-29 ml/min: (7) LBBB (left bundle branch block): (8) CLL (chronic lymphocytic leukemia): (9) HTN (hypertension): (10) HAWA (obstructive sleep apnea): (11) Tobacco use disorder: (12) Embolism, arterial, leg, left: (13) Ventricular tachycardia: (14) Ischemic cardiomyopathy: (15) Elevated transaminase level: (16) Anemia due to chronic disease treated with erythropoietin: (17) Bronchitis: (18) Anemia in CKD (chronic kidney disease): (19) Pneumonia: Plan: Patient with evidence of acute on chronic respiratory failure secondary to pneumonia and CHF exacerbation. Now will significant elevated transaminases, possibly due to hepatic congestion? Worsening renal function also noted during admission. Agree with holding amiodarone. Atorvastatin placed on hold as well. Consider GI eval for input. Liver US without acute findings. He has no abdominal pain as well. While amiodarone is on hold, will increase metoprolol to 12.5 mg BID due to history of VT and afib. Furosemide increased to 80 mg BID this morning. Monitor I+O's Low sodium diet 1500 ml fluid restriction Appreciate nephrology input and guidance on diuretics. Continue antibiotics per hospitalist/pulm for pneumonia. Case discussed with Dr. Fox. Will follow. Admission and Anticipated Discharge Date Admission Date: August 14, 2021 Supervising Physician Co-Signing Physician Notes Patient seen and examined with Rso Maynard PA-C. Agree with findings and assessment as above. Transaminitis improving. Amiodarone and atorvastatin to continue to be held. Considering hemodialysis as per nephrology colleagues. Subjective Patient resting in bed. Moaning. Does answer questions appropriately. Reports feeling "terrible" but will not elaborate on specific complaints. Notes ongoing cough and SOB. No chest pain. No abdominal pain. He is laying fairly flat without significant orthopnea. Ongoing edema noted, but improved per patient. Review of Systems Review of Systems: All systems reviewed & are unremarkable except as noted in HPI & below Physical Exam Constitutional: WD/WN, vitals as above + ill appearing Eyes: PERRL, conjunctivae normal, anicteric sclerae Neck: trachea midline, no thyromegaly Respiratory: + labored breathing and + cough Auscultation: + crackles and + rhonchi Cardiovascular: Rate/Rhythm: regular rate and regular rhythm Heart Sounds: + murmur (III/) Vessels: + JVD Extremities: + edema (2+ edema to knees) Gastrointestinal (Abdomen): normal bowel sounds, soft, nontender, no hepatosplenomegaly Skin: no rashes, warm and dry Neurologic: PERRL, EOMI, accommodation nl, no face palsy, no dysarthria Psychiatric: A+Ox3, euthymic affect Results & Data ([facility]) Vital Signs (Past 12 Hours) Vital Signs Temp Pulse Pulse Resp BP Pulse Ox 08/16/21 07:18 71 22 97 08/16/21 07:09 36.3 C L 71 22 117/66 93 08/16/21 03:09 58 L 29 H 99 08/16/21 00:01 65 24 98 08/15/21 23:57 36.3 C L 66 18 117/74 93 08/15/21 22:10 60 29 H 98 Laboratory Results 08/16/21 08/16/21 08/15/21 Range/Units 07:05 07:05 21:05 PT 63.1 H (9.0-12.0) Seconds INR 6.6 H* (0.9-1.1) ABG pH (7.35-7.45) ABG pCO2 (35-46) mmHg ABG pO2 (80-95) mmHg ABG HCO3 (19-24) mmol/L ABG O2 Saturation (90-95) % ABG Base Excess (-9-1.8) mEq/L Mau Test (Pos) Barometric Pressure mm/Hg Oxygen Given Sodium 137 136 (136-145) mmol/L Potassium 4.5 5.4 H (3.5-5.1) mmol/L Chloride 101 102 (98-107) mmol/L Carbon Dioxide 21 16 L (21-32) mmol/L Anion Gap 15 H 18 H (3-11) BUN 81 H 72 H (6-23) mg/dl Creatinine 3.97 H 4.01 H (0.6-1.4) mg/dl Est Cr Clr Drug Dosing 14.4 14.2 ml/min Est GFR ( Amer) 15.5 15.3 ml/min Est GFR (Non-Af Amer) 13.4 13.2 ml/min BUN/Creatinine Ratio 20.4 H 18.0 (10-20) Glucose 123 H 93 (70-99(Fasting)) mg/dl Calcium 8.1 L 9.4 (8.5-10.1) mg/dl Magnesium 2.5 H (1.7-2.4) mg/dl Total Bilirubin 3.1 H (0.2-1.0) mg/dl Direct Bilirubin 2.0 H (0-0.2) mg/dl AST 2138 H (13-39) U/L ALT 1323 H (7-52) U/L Alkaline Phosphatase 103 (34-104) U/L Total Protein 5.8 L (6.0-8.3) gm/dl Albumin 3.4 (3.4-5.0) gm/dl Hepatitis A IgM Ab Hep Bs Antigen Hep B Core IgM Ab Hepatitis C Antibody 08/15/21 08/15/21 08/15/21 Range/Units 16:11 16:11 11:05 PT (9.0-12.0) Seconds INR (0.9-1.1) ABG pH 7.26 L (7.35-7.45) ABG pCO2 30 L (35-46) mmHg ABG pO2 81 (80-95) mmHg ABG HCO3 13 L (19-24) mmol/L ABG O2 Saturation 94.1 (90-95) % ABG Base Excess -12.5 L (-9-1.8) mEq/L Mau Test Pos (Pos) Barometric Pressure 729.7 mm/Hg Oxygen Given 2 Sodium 133 L (136-145) mmol/L Potassium 6.0 H D (3.5-5.1) mmol/L Chloride 101 (98-107) mmol/L Carbon Dioxide 13 L (21-32) mmol/L Anion Gap 19 H (3-11) BUN 70 H (6-23) mg/dl Creatinine 3.77 H D (0.6-1.4) mg/dl Est Cr Clr Drug Dosing 15.1 ml/min Est GFR ( Amer) 16.5 ml/min Est GFR (Non-Af Amer) 14.2 ml/min BUN/Creatinine Ratio 18.6 (10-20) Glucose 80 (70-99(Fasting)) mg/dl Calcium 9.8 (8.5-10.1) mg/dl Magnesium (1.7-2.4) mg/dl Total Bilirubin (0.2-1.0) mg/dl Direct Bilirubin (0-0.2) mg/dl AST (13-39) U/L ALT (7-52) U/L Alkaline Phosphatase (34-104) U/L Total Protein (6.0-8.3) gm/dl Albumin (3.4-5.0) gm/dl Hepatitis A IgM Ab Pending Hep Bs Antigen Hep B Core IgM Ab Pending Hepatitis C Antibody 08/15/21 Range/Units 11:05 PT (9.0-12.0) Seconds INR (0.9-1.1) ABG pH (7.35-7.45) ABG pCO2 (35-46) mmHg ABG pO2 (80-95) mmHg ABG HCO3 (19-24) mmol/L ABG O2 Saturation (90-95) % ABG Base Excess (-9-1.8) mEq/L Mau Test (Pos) Barometric Pressure mm/Hg Oxygen Given Sodium (136-145) mmol/L Potassium (3.5-5.1) mmol/L Chloride (98-107) mmol/L Carbon Dioxide (21-32) mmol/L Anion Gap (3-11) BUN (6-23) mg/dl Creatinine (0.6-1.4) mg/dl Est Cr Clr Drug Dosing ml/min Est GFR ( Amer) ml/min Est GFR (Non-Af Amer) ml/min BUN/Creatinine Ratio (10-20) Glucose (70-99(Fasting)) mg/dl Calcium (8.5-10.1) mg/dl Magnesium (1.7-2.4) mg/dl Total Bilirubin (0.2-1.0) mg/dl Direct Bilirubin (0-0.2) mg/dl AST (13-39) U/L ALT (7-52) U/L Alkaline Phosphatase (34-104) U/L Total Protein (6.0-8.3) gm/dl Albumin (3.4-5.0) gm/dl Hepatitis A IgM Ab Hep Bs Antigen Pending Hep B Core IgM Ab Hepatitis C Antibody Pending Diagnostic Findings Telemetry reviewed - AV paced, HR's in the 70's Chest xray: IMPRESSION: 1. Compared to previous examination, there is again evidence for central vascular congestion. 2. Increasing right pleural effusion with evidence for fluid within the right major fissure. Liver US: IMPRESSION: 1. Limited examination due to overlying bowel gas. 2. Increased echogenicity of the liver. 3. Cholelithiasis with no ultrasound evidence for acute cholecystitis. 4. Increase fluid over the dome of the liver characteristic of increased ascites. Medications Administered Current Inpatient Medications Acetaminophen (Acetaminophen 325 Mg Tab) 650 mg PO Q4H PRN PRN Reason: Pain or Fever Stop: 09/13/21 16:44 Last Admin: 08/14/21 22:32 Dose: 650 mg Documented by: Amiodarone HCl (Amiodarone 200 Mg Tab) 200 mg PO QAM [facility] Stop: 09/14/21 08:59 Last Admin: 08/15/21 08:49 Dose: 200 mg Documented by: Aspirin (Aspirin 81 Mg Ectab) 81 mg PO QAM [facility] Stop: 09/14/21 08:59 Last Admin: 08/16/21 08:05 Dose: 81 mg Documented by: Atorvastatin Calcium (Atorvastatin 40 Mg Tab) 40 mg PO HS [facility] Stop: 09/13/21 20:59 Last Admin: 08/15/21 20:53 Dose: 40 mg Documented by: Azelastine HCl (Azelastine Hcl 0.1% Nasal 200 Sprays/27,400 Mcg Btl) 2 sprays RAMIRO BID ABAD Stop: 09/13/21 20:59 Last Admin: 08/16/21 08:06 Dose: 2 sprays Documented by: Cyanocobalamin (Cyanocobalamin (B-12) 500 Mcg Tablet) 1,000 mcg PO QAM [facility] Stop: 09/14/21 08:59 Last Admin: 08/16/21 08:07 Dose: 1,000 mcg Documented by: Doxycycline Hyclate (Doxycycline Hyclate 100 Mg Cap) 100 mg PO BID [facility] Stop: 08/22/21 10:59 Last Admin: 08/16/21 08:08 Dose: 100 mg Documented by: Fluticasone Propionate (Fluticasone Propionate Na Spr 16 Gm Btl) 1 sprays RAMIRO DAILY [facility] Stop: 09/14/21 08:59 Last Admin: 08/16/21 08:08 Dose: 1 sprays Documented by: Furosemide (Furosemide 40 Mg/4 Ml Vial) 80 mg IV Q12H [facility] Stop: 09/15/21 05:59 Last Admin: 08/16/21 05:55 Dose: 80 mg Documented by: Cefepime HCl 2,000 mg/ Syringe 20 mls @ 5 mls/min IV Q24H [facility]; Protocol Stop: 08/22/21 11:59 Last Admin: 08/15/21 11:36 Dose: 5 mls/min Documented by: Promethazine HCl 6.25 mg/ (Sodium Chloride) 50.25 mls @ 201 mls/hr IV Q6H PRN PRN Reason: Nausea And Vomiting Stop: 09/14/21 18:29 Last Infusion: 08/16/21 01:16 Dose: Infused Documented by: Ipratropium [place] (Ipratropium [place] Neb Soln 0.02% 2.5 Ml Vial) 0.5 mg INH Q6R [facility] Stop: 09/14/21 10:59 Last Admin: 08/16/21 07:18 Dose: 0.5 mg Documented by: Levalbuterol HCl (Levalbuterol Hcl 0.63 Mg/3 Ml Neb) 0.63 mg NEB Q6R [facility] Stop: 09/14/21 10:59 Last Admin: 08/16/21 07:18 Dose: 0.63 mg Documented by: Levothyroxine Sodium (Levothyroxine Sodium 75 Mcg Tablet) 75 mcg PO DAILYBB [facility] Stop: 09/14/21 06:29 Last Admin: 08/16/21 05:34 Dose: Not Given Documented by: Melatonin (Melatonin 3 Mg Tab) 3 mg PO HS PRN PRN Reason: Sleep Stop: 09/13/21 22:10 Last Admin: 08/14/21 22:29 Dose: 3 mg Documented by: Metoprolol Succinate (Metoprolol Succ 25mg Ext Rel Tab) 12.5 mg PO HS [facility] Stop: 09/13/21 20:59 Last Admin: 08/15/21 20:51 Dose: Not Given Documented by: Polyethylene Glycol (Polyethylene (Miralax) 17 Gm Pack) 17 gm PO DAILY PRN PRN Reason: Constipation Stop: 09/13/21 16:44 Pyridoxine HCl (Pyridoxine Hcl 50 Mg Tab) 100 mg PO BID [facility] Stop: 09/13/21 20:59 Last Admin: 08/16/21 08:09 Dose: 100 mg Documented by: Vitamin D (Cholecalciferol 1,000 Units 25 Mcg Tab) 1,000 units PO QAM [facility] Stop: 09/14/21 08:59 Last Admin: 08/16/21 08:07 Dose: 1,000 units Documented by: (1) Pneumonia Laterality: right Lung location: lower lobe of lung Pneumonia type: due to unspecified organism Qualified Code(s): J18.9 - Pneumonia, unspecified organism
--- NOTE | 2021-08-16 08:40 | XRay Report ---
XR chest 1V portable CLINICAL HISTORY: ff up chf. COMPARISON STUDY: 08/15/2021 TECHNIQUE: 1 view of the chest FINDINGS: Single frontal view of the chest demonstrates the heart to again be enlarged with pacer in place. Com pared to previous examination, there is again evidence for central vascular congestion. No definite p eripheral interstitial edema is seen. There is evidence for bilateral pleural effusions layering evy g the posterior gutter. PA and lateral radiographs could be obtained for further evaluation. No confl uent alveolar opacities are seen. There is no acute osseous pathology. IMPRESSION: 1. Compared to previous study, there is again evidence for central vascular congestion. 2. There is again evidence for bilateral pleural effusions, right greater than left. Follow-up PA and lateral radiographs could be obtained for further evaluation. ACT 112: Negative or not required by law. Electronically signed by: Mohan Rueda M.D. 08/16/2021 8:38 AM
[2021-08-16 08:52] LABS: Hepatitis B Surf Ag Rflx Conf Neg (Neg)
[2021-08-16 09:23] LABS: Hepatitis C IgG 13Yrs+Old_Rflx Neg (Neg)
[2021-08-16] MEDS ORDERED: FUROSEMIDE 40 MG/4 ML VIAL IV ONE (10:07)
[2021-08-16] MEDS ORDERED: metOLazone 5 MG TABLET PO ONE (10:07)
--- NOTE | 2021-08-16 10:12 | Nephrology Progress Note ---
Date of Service August 16, 2021 Assessment & Plan Admission and Anticipated Discharge Date Admission Date: August 14, 2021 Subjective A/p---- 1 ARF on CKD 4--with fluid overload/Pulm congestion and pneumonia on top with resp failure. Not much urine with lasix 80 . Will give another 40 iv and metolazone 5 now. Quite possible he may need Dialysis if no recovery within few days. Will discuss more tomorrow S---Feels SOB. Not much urine Physical Exam Physical Exam: General: Awake and moaning. Not responding to direct questioning HEENT: Normocephalic, atraumatic. Pupils equal, round and reactive to light and accommodation. Extraocular muscles are intact. Anicteric sclera. Moist mucous membranes. Neck: No JVD. No bruit. Cardiovascular: Regular. Positive S-4. Normal S-1 and S-2. No S-3. 3/6 mid to late systolic ejection murmur, greatest at the right sternal border, second intercostal space with radiation to the bilateral carotids. No rubs. Pulmonary: b/l rhonchi. Abdomen: Bowel sounds x 4, soft. No rebound, guarding or tenderness. No organomegaly. Extremities: No clubbing, cyanosis or edema. +2 pedal pulses bilaterally. Skin: Warm and dry. Results & Data ([facility]) Vital Signs (Past 12 Hours) Vital Signs Temp Pulse Pulse Resp BP Pulse Ox 08/16/21 07:18 71 22 97 08/16/21 07:09 36.3 C L 71 22 117/66 93 08/16/21 03:09 58 L 29 H 99 08/16/21 00:01 65 24 98 08/15/21 23:57 36.3 C L 66 18 117/74 93 08/15/21 22:10 60 29 H 98
[2021-08-16] MEDS: METOPROLOL SUCC 25MG EXT REL TAB PO SCH ×2 (10:23→20:21)
[2021-08-16] MEDS ORDERED: methylPREDNISolone 40 MG in SYRINGE 0 ML IV STA (10:40)
[2021-08-16] MEDS: CEFEPIME 2,000 MG in SYRINGE 0 ML IV SCH (11:26)
--- NOTE | 2021-08-16 14:51 | Gastrointestinal Consultation ---
Date of Consultation August 16, 2021 Assessment & Plan (1) Cardiorenal syndrome with renal failure: (2) Elevated LFTs: (3) Chronic heart failure with reduced ejection fraction and diastolic dysfunction: (4) CKD (chronic kidney disease): (5) Supratherapeutic INR: 81-year-old male with CHF, history of ICD placement, A. fib on amiodarone and Coumadin, both being held, presented with shortness of breath, has volume overload, worsening renal function/cardiorenal syndrome, and acutely elevated LFTs, supratherapeutic INR. No Bret Dil on imaging, no obvious CBD stone. His ICD precludes MRCP. Consider most likely etiology for his LFTs is congestive hepatopathy; can also consider viral hep, PVT, DILI, biliary stone/sludge. On exam, he has no GI complaints, abdomen is soft, nontender, no asterixis or evidence of hepatic encephalopathy. - Await acute hepatitis panel Will check hepatic duplex to rule out PVT - Would bring down INR to reduce risk of bleeding - Trend daily LFTs, INR. - Avoid Tylenol, other hepatotoxins Thank you for allowing us to participate in the care of this patient. Please call with any acute changes, questions or concerns. Please see addendum below with additional recommendation from my supervising physician. Supervising Physician Co-Signing Physician Notes I have seen and examined the patient with Rob Lombardo PA-C whose note reflects our findings and plan. History of Present Illness Reason for Consultation: Elevated LFTs Requesting Physician: Dr. Mendiola Attending Physician: Ken Mendiola MD History of Present Illness Pt is an 81 y/o male w/ PMHx HFrEF s/p BIV ICD and pacemaker, Afib on Coumadin, CKD IV, T-cell lymphoma s/p chemo, Myelodysplastic syndrome, chronic anemia on Procrit, Cardiorenal syndrome, hx of b/l pleural effusion s/p thoracentesis,L leg arterial embolism s/p thrombectomy admitted for worsening SOB, productive cough. Recent hospitalization for CHF, ICD placed 06/15/21. On arrival BNP > 4700, COVID neg, acutely elevated LFTs, INR supratherapeutic, worsening renal fxn w/ Cr 4-> 3.97 today. Chronic anemia is stable, PLT WNL. CXR w/ central vascular congestion, mild pulmonary edema. US ABD w/ stone in GB neck, no bret dil. He is being tx for CHF/PNA, nephrology following for worsening renal fxn. Cardiology following for CHF, volume overload. Coumadin and amiodarone have both been held. Acute hepatitis panel pending. AST 676->2138 ALT 421->1323 ALP WNL Dbili chronically elevated at 0.6 -> 2.0 Tbili chronically elevated at 1.7->2.5->3.1. INR 4.4-> 6.6 Albumin WNL He tells me he does not feel well, has no specific complaints. Is tolerating small amounts of food. States he does not feel hungry. Bowels move usually once every other day, had a small BM today. No melena or hematochezia, no nausea vomiting, hematemesis, fevers or chills, no jaundice, icterus, dark urine or sommers stools, denies chest pain, syncope. Has chronic SOB. No prior h/o personal or fam hx liver disease. States at home he does take Tylenol usually daily, approximately 2/day. Was taking turmeric but not for the last few weeks, was taking 1/day. Previous history of EtOH use, was drinking 2 drinks or more per day, not for several months. No other new medications, including antibiotics. Allergies Allergy/AdvReac Type Severity Reaction Status Date / Time RYLEE Inhibitors AdvReac Intermediate Renal Verified 08/14/21 15:57 Complications Home Medications Medication Instructions Recorded Confirmed Type azelastine 137 mcg (0.1 %) nasal 2 spray INTRANASAL BID 03/11/21 08/14/21 History spray aerosol cholecalciferol (vitamin D3) 25 25 mcg PO QAM 03/11/21 08/14/21 History mcg (1,000 unit) tablet (Vitamin D3) cyanocobalamin (vitamin B-12) 1,000 mcg PO QAM 03/11/21 08/14/21 History 1,000 mcg tablet (Vitamin B-12) fluticasone propionate 50 1 spray INTRANASAL DAILY 03/11/21 08/14/21 History mcg/actuation nasal spray,suspension levothyroxine 75 mcg tablet 75 mcg PO DAILYBB 03/11/21 08/14/21 History pyridoxine (vitamin B6) 100 mg 100 mg PO AMPM 03/11/21 08/14/21 History tablet (Vitamin B-6) triamcinolone acetonide 0.1 % 1 applic TOPICAL HS PRN 03/11/21 08/14/21 History topical ointment aspirin 81 mg tablet,delayed 81 mg PO QAM #30 tab 03/20/21 08/14/21 Rx release amiodarone 200 mg tablet 200 mg PO QAM 05/14/21 08/14/21 History torsemide 20 mg tablet 40 mg PO BID 05/14/21 08/14/21 History atorvastatin 40 mg tablet 40 mg PO HS 05/16/21 08/14/21 History gabapentin 100 mg capsule 100 mg PO AMPM PRN 08/14/21 08/14/21 History metoprolol succinate 25 mg 12.5 mg PO HS 08/14/21 08/14/21 History tablet,extended release 24 hr potassium chloride 20 mEq 40 meq PO QAM 08/14/21 08/14/21 History tablet,extended release(part/cryst) warfarin 2 mg tablet 2 mg PO DAILY 08/14/21 08/14/21 History Patient History Medical History Anemia due to chronic disease treated with erythropoietin Anemia in CKD (chronic kidney disease) Aortic stenosis, moderate Cardiorenal syndrome with renal failure Chronic heart failure with reduced ejection fraction and diastolic dysfunction CKD (chronic kidney disease) stage 4, GFR 15-29 ml/min CLL (chronic lymphocytic leukemia) H/O: rheumatic fever HTN (hypertension) ICD (implantable cardioverter-defibrillator) in place LBBB (left bundle branch block) MDS (myelodysplastic syndrome), low grade Nocturnal hypoxemia HAWA (obstructive sleep apnea) Paroxysmal atrial fibrillation Prostate cancer Tobacco use disorder Surgical History H/O uvulectomy H/O vascular surgery LLE: thrombectomy at [facility] S/P tonsillectomy and adenoidectomy Family History Other Family history non-contributory Social History Smoking Status: Former smoker Tobacco Type: Cigarettes Smoking End Date: 05/2021; Second Hand Exposure: No; Hx Alcohol Use: No Hx Substance Use: No Preferred Language: Lebanese Communication Ability: Effective Communication Ability Comment: only reads and writes a litttle [employer] Required: No Beliefs That Will Affect Care: None marital status: / Current Living Situation: Significant Other Current Living Situation Comment: Pt lives with girlfriend Zaira [place] How many Children do You have: 4 Feels Safe at Home: Yes Safety Concerns: Feels Safe At This Time Assistive Devices: Cane and Walker Review of Systems Review of Systems: All systems reviewed & are unremarkable except as noted in HPI & below Physical Exam Constitutional: Chronically ill, sallow complexion, no acute distress today Eyes: Slightly icteric Neck: trachea midline, no thyromegaly Respiratory: Labored breathing, nasal cannula in place, bilateral rhonchi Cardiovascular: Regular rate and rhythm, + murmur, 2+ bilateral pretibial edema Gastrointestinal (Abdomen): normal bowel sounds, soft, nontender, no hepatosplenomegaly Skin: no rashes, warm and dry Psychiatric: A+Ox3, euthymic affect Results & Data ([facility]) Vital Signs (Past 12 Hours) Vital Signs Temp Pulse Pulse Resp BP Pulse Ox 08/16/21 12:24 72 18 97 08/16/21 10:58 36.5 C 73 18 118/71 97 08/16/21 07:18 71 22 97 08/16/21 07:09 36.3 C L 71 22 117/66 93 08/16/21 03:09 58 L 29 H 99 Laboratory Results 08/16/21 08/16/21 08/16/21 Range/Units 14:12 07:05 07:05 PT 63.1 H (9.0-12.0) Seconds INR 6.6 H* (0.9-1.1) ABG pH (7.35-7.45) ABG pCO2 (35-46) mmHg ABG pO2 (80-95) mmHg ABG HCO3 (19-24) mmol/L ABG O2 Saturation (90-95) % ABG Base Excess (-9-1.8) mEq/L Mau Test (Pos) Barometric Pressure mm/Hg Oxygen Given Sodium 137 (136-145) mmol/L Potassium 4.5 (3.5-5.1) mmol/L Chloride 101 (98-107) mmol/L Carbon Dioxide 21 (21-32) mmol/L Anion Gap 15 H (3-11) BUN 81 H (6-23) mg/dl Creatinine 3.97 H (0.6-1.4) mg/dl Est Cr Clr Drug Dosing 14.4 ml/min Est GFR ( Amer) 15.5 ml/min Est GFR (Non-Af Amer) 13.4 ml/min BUN/Creatinine Ratio 20.4 H (10-20) Glucose 123 H (70-99(Fasting)) mg/dl Calcium 8.1 L (8.5-10.1) mg/dl Magnesium 2.5 H (1.7-2.4) mg/dl Total Bilirubin 3.1 H (0.2-1.0) mg/dl Direct Bilirubin 2.0 H (0-0.2) mg/dl AST 2138 H (13-39) U/L ALT 1323 H (7-52) U/L Alkaline Phosphatase 103 (34-104) U/L Total Protein 5.8 L (6.0-8.3) gm/dl Albumin 3.4 (3.4-5.0) gm/dl SARS-CoV-2 (PCR) Pending Hep Bs Antigen (Neg) Hepatitis C Antibody (Neg) Influenza Type A (PCR) Pending Influenza Type B (PCR) Pending RSV (RT-PCR) Pending 08/15/21 08/15/21 08/15/21 Range/Units 21:05 16:11 16:11 PT (9.0-12.0) Seconds INR (0.9-1.1) ABG pH 7.26 L (7.35-7.45) ABG pCO2 30 L (35-46) mmHg ABG pO2 81 (80-95) mmHg ABG HCO3 13 L (19-24) mmol/L ABG O2 Saturation 94.1 (90-95) % ABG Base Excess -12.5 L (-9-1.8) mEq/L Mau Test Pos (Pos) Barometric Pressure 729.7 mm/Hg Oxygen Given 2 Sodium 136 133 L (136-145) mmol/L Potassium 5.4 H 6.0 H D (3.5-5.1) mmol/L Chloride 102 101 (98-107) mmol/L Carbon Dioxide 16 L 13 L (21-32) mmol/L Anion Gap 18 H 19 H (3-11) BUN 72 H 70 H (6-23) mg/dl Creatinine 4.01 H 3.77 H D (0.6-1.4) mg/dl Est Cr Clr Drug Dosing 14.2 15.1 ml/min Est GFR ( Amer) 15.3 16.5 ml/min Est GFR (Non-Af Amer) 13.2 14.2 ml/min BUN/Creatinine Ratio 18.0 18.6 (10-20) Glucose 93 80 (70-99(Fasting)) mg/dl Calcium 9.4 9.8 (8.5-10.1) mg/dl Magnesium (1.7-2.4) mg/dl Total Bilirubin (0.2-1.0) mg/dl Direct Bilirubin (0-0.2) mg/dl AST (13-39) U/L ALT (7-52) U/L Alkaline Phosphatase (34-104) U/L Total Protein (6.0-8.3) gm/dl Albumin (3.4-5.0) gm/dl SARS-CoV-2 (PCR) Hep Bs Antigen (Neg) Hepatitis C Antibody (Neg) Influenza Type A (PCR) Influenza Type B (PCR) RSV (RT-PCR) 08/15/21 Range/Units 11:05 PT (9.0-12.0) Seconds INR (0.9-1.1) ABG pH (7.35-7.45) ABG pCO2 (35-46) mmHg ABG pO2 (80-95) mmHg ABG HCO3 (19-24) mmol/L ABG O2 Saturation (90-95) % ABG Base Excess (-9-1.8) mEq/L Mau Test (Pos) Barometric Pressure mm/Hg Oxygen Given Sodium (136-145) mmol/L Potassium (3.5-5.1) mmol/L Chloride (98-107) mmol/L Carbon Dioxide (21-32) mmol/L Anion Gap (3-11) BUN (6-23) mg/dl Creatinine (0.6-1.4) mg/dl Est Cr Clr Drug Dosing ml/min Est GFR ( Amer) ml/min Est GFR (Non-Af Amer) ml/min BUN/Creatinine Ratio (10-20) Glucose (70-99(Fasting)) mg/dl Calcium (8.5-10.1) mg/dl Magnesium (1.7-2.4) mg/dl Total Bilirubin (0.2-1.0) mg/dl Direct Bilirubin (0-0.2) mg/dl AST (13-39) U/L ALT (7-52) U/L Alkaline Phosphatase (34-104) U/L Total Protein (6.0-8.3) gm/dl Albumin (3.4-5.0) gm/dl SARS-CoV-2 (PCR) Hep Bs Antigen Neg (Neg) Hepatitis C Antibody Neg (Neg) Influenza Type A (PCR) Influenza Type B (PCR) RSV (RT-PCR) Diagnostic Findings Liver US FINDINGS: The study is limited by overlying bowel gas. Pancreas: The body of the pancreas is within normal limits with no focal mass or peripancreatic fluid collection identified. Head and tail are excluded by overlying bowel gas. Liver: The liver is homogeneous in mildly increased echogenicity There is no e vidence for a focal mass. There is no intrahepatic biliary duct dilatation. Gallbladder: Gallbladder is partially contracted with a stone seen within the neck of the gallbladder. There is gallbladder wall thickening related to the contracted gallbladder. There is no pericholecystic edema. There was reportedly a negative sonographic Bradley's sign. Common Bile Duct: (CBD): It is normal in size measuring 3 mm. Inferior Vena Cava (IVC): The imaged IVC is patent. Right kidney: There is no evidence for hydronephrosis, calculus or gross renal mass. The kidney is normal in size. It measures 9.8 cm in greatest length. Compared to previous study, there is increased fluid seen over the dome of the liver. IMPRESSION: 1. Limited examination due to overlying bowel gas. 2. Increased echogenicity of the liver. 3. Cholelithiasis with no ultrasound evidence for acute cholecystitis. 4. Increase fluid over the dome of the liver characteristic of increased ascites. CXR 08/15/21: IMPRESSION: 1. Compared to previous examination, there is again evidence for central vascular congestion. 2. Increasing right pleural effusion with evidence for fluid within the right major fissure. CXR 08/16/21: FINDINGS: Single frontal view of the chest demonstrates the heart to again be enlarged with pacer in place. Compared to previous examination, there is again evidence for central vascular congestion. No definite peripheral interstitial edema is seen. There is evidence for bilateral pleural effusions layering along the posterior gutter. PA and lateral radiographs could be obtained for further evaluation. No confluent alveolar opacities are seen. There is no acute osseous pathology. IMPRESSION: 1. Compared to previous study, there is again evidence for central vascular congestion. 2. There is again evidence for bilateral pleural effusions, right greater than left. Follow-up PA and lateral radiographs could be obtained for further evaluation.
[2021-08-16 15:01] LABS: Influenza A virus by PCR Negative (Neg); Influenza B virus by PCR Negative (Neg); RSV by PCR Negative (Neg); SARS CoV2 RNA(COVID-19) InHosp NEGATIVE (Negative)
--- NOTE | 2021-08-16 15:44 | Hospitalist Progress Note ---
Date of Service August 16, 2021 Assessment & Plan (1) Acute and chronic respiratory failure with hypoxia: Plan: (1) SOB (shortness of breath): (2) Cough: (3) Acute on chronic HFrEF (heart failure with reduced ejection fraction): (4) Ischemic cardiomyopathy: (5) ICD (implantable cardioverter-defibrillator) in place: (6) Bronchitis: per admitting service notes with addendum: Patient is 81-year-old male with PMH HTN, chronic HFrEF, EF 20-25% on echo 2020, s/p ICD, ventricular tachycardia, LBBB, moderate aortic stenosis, CKD IV, arterial thrombosis, chronic anemia, pleural effusions, lymphoma treated with chemotherapy, myelodysplastic syndrome and other problems listed below presented to ER with complaint of shortness of breath and productive cough, rhinorrhea x 1 day. Denies fever/chills, CP. Recent h/o hospitalization for acute on chronic HFrEF, pleural effusions s/p bilateral thoracentesis, ICD placement on 06/15/2021, Today in ER afebrile, no hypoxia, other vitals stable. WBC: 12, procalcitonin: 0.09. BNP: >4700, troponin: 0.03. Negative SARS CoV2 NAAT test. CXR: Possible tiny bilateral pleural effusions, decreased from prior exam. Previously noted airspace opacities have resolved. There is mild pulmonary edema. In ER was given cefepime, vancomycin, lasix 40mg IV, calcium gluconate 1000mg IV Likely SOB and cough secondary to acute on chronic CHF. Possible bronchitis. No infiltrates noted on CXR at this time. History echo 05/15/2021: EF: 25-30%, large sized apical, septal, anterior septal, anterior and lateral wall motion abnormality with hypokinesis to akinesis of the segments. Mild diffuse right ventricular hypokinesis, moderate mitral reg urgitation, mild to moderate tricuspid regurgitation, mild aortic valve stenosis, severe pulmonary hypertension, grade 2 diastolic dysfunction, Negative MRSA swab 08/15/21 repeat CXR: 1. Compared to previous examination, there is again evidence for central vascular congestion. 2. Increasing right pleural effusion with evidence for fluid within the right major fissure. Lasix 40mg IV BID monitor I and Os monitor renal function discussed with Nephrology SVC change antibiotic to Cefepime + Doxy Nebs q6h ff up sputum and blood culture 08/16/21 repeat CXR: 1. Compared to previous study, there is again evidence for central vascular congestion. 2. There is again evidence for bilateral pleural effusions, right greater than left. Follow-up PA and lateral radiographs could be obtained for further evaluation. on 2L NC still (+) volume overload, crea increased to 3.9 urine output 450cc discussed with Dr. Lundy additional Lasix 40mg IV, and Metolazone monitor crea continue Cefepime + Doxy, Nebs, additional Solumedrol 1 dose today ff up sputum and blood culture wean off oxygen accordingly Elevated LFTs (+) direct bilirubinemia AST/ALT significantly increased normal alk phos Liver US: gallstone in the GB neck from Cholelithiasis? from Amiodarone? Viral Hepatitis? GI consulted Amiodarone, Lipitor held, Hep Panel pending Acute on CKD (chronic kidney disease) stage 4 likely from ATN, from Underlying Pneumonia Cr: 3.0. Has been running 2-2.9 over the past 2 months. crea increased to 3.9 Nephro on board management per above (8) Paroxysmal atrial fibrillation: Plan: Current paced rhythm INR: 6.6 no signs of bleeding hold coumadin monitor INR daily continue metoprolol (9) Pleural effusion: Plan: History bilateral pleural effusions requiring thoracentesis in the recent past diuresis as per #1 (10) Anemia in CKD (chronic kidney disease): Plan: Hgb: 9.0. Around recent baseline Hg pending History left lower extremity embolism S/P emergent thrombectomy in 03/2021 Continue aspirin hold coumadin for elevated INR plan of care discussed with patient and his son in detail and at length, yesterday and tomorrow all questions answered they are understanding, agreeable, comfortable with the plan of care Admission and Anticipated Discharge Date Admission Date: August 14, 2021 Subjective ff up for BL pneumonia, acute renal failure, CHF exacerbation, etc seen resting in bed, on 2 L NC alert, oriented, speaking in sentences with no effort states he feels about the same as yesterday feels tired breathing is ok coughing less, no fever/chills had some nausea no other symptoms Review of Systems Review of Systems: all noted and negative except for above Physical Exam Physical Exam: General- oriented x 2, not in distress, speaks in sentences with no effort or accessory muscle use Eyes- anicteric Neck- mild JVD Lungs- mild rales at the bases no wheezing Heart- normal rate, regular rhythm; no murmurs Abdomen- normal bowel sounds, nondistended, soft, nontender Extremities-grade 1 lower leg edema no erythema/warmth/tenderness Neuro- alert, oriented x 2; no gross focal neurologic deficits Skin- warm & dry Results & Data Results & Data ([facility]) Vital Signs (Past 12 Hours) Vital Signs Temp Pulse Resp BP Pulse Ox 08/16/21 12:24 72 18 97 08/16/21 10:58 36.5 C 73 18 118/71 97 08/16/21 07:18 71 22 97 08/16/21 07:09 36.3 C L 71 22 117/66 93 all noted and reviewed including below
[2021-08-16 15:46] LABS: Basophils # (auto) 0.01 K/uL (0-0.2); Basophils % (auto) 0.1 %; Hematocrit (blood only) 28.5 % (42-52); Hemoglobin 9.3 g/dL (14.0-18.0); Immature Granulocytes # (auto) 0.03 K/uL (0.00-0.02); Immature Granulocytes % (auto) 0.3 %; Lymphocytes # (auto) 1.27 K/uL (1.2-3.4); Lymphocytes % (auto) 13.6 %; Mean Corpuscular Hemoglobin 38.8 pg (25-34); Mean Corpuscular Hgb Conc 32.6 g/dL (32-36); Mean Corpuscular Volume 118.8 fL (80-100); Mean Platelet Volume 10.6 fL (7.4-10.4); Monocytes # (auto) 0.26 K/uL (0.11-0.59); Monocytes % (auto) 2.8 %; Neutrophils # (auto) 7.77 K/uL (1.4-6.5); Neutrophils % (auto) 83.2 %; Platelet Count 297 K/uL (130-400); RDW Coefficient of Variation 21.7 % (11.5-14.5); RDW Standard Deviation 94.3 fL (36.4-46.3); White Blood Count 9.34 K/uL (4.8-10.8)
[2021-08-16 16:13] LABS: Acanthocytes 1+; Anisocytosis Present; Macrocytosis Present; Polychromasia 1+
--- NOTE | 2021-08-16 22:16 | Electrocardiogram Report ---
Test Reason : Blood Pressure : / mmHG Vent. Rate : 066 BPM Atrial Rate : 066 BPM P-R Int : 188 ms QRS Dur : 156 ms QT Int : 528 ms P-R-T Axes : -09 103 -69 degrees QTc Int : 553 ms Atrial-sensed ventricular-paced rhythm Abnormal ECG When compared with ECG of 15-AUG-2021 05:09, Sinus rhythm has replaced atrial pacing Confirmed by William Pastrana ([id number]) on 08/16/2021 10:15:26 PM Referred By: REFERRED SELF Confirmed By:William Pastrana
[2021-08-17] MEDS: LEVALBUTEROL HCL 0.63 MG/3 ML NEB NEB SCH ×4 (00:24→19:26)
[2021-08-17] MEDS: IPRATROPIUM BROMIDE NEB SOLN 0.02% 2.5 ML VIAL INH SCH ×4 (00:24→19:27)
[2021-08-17 03:29] LABS: Hepatitis A Antibody IgM NON-REACTIVE (NON-REACTIVE); Hepatitis B Core Antibody IgM NON-REACTIVE (NON-REACTIVE)
[2021-08-17] MEDS: LEVOTHYROXINE SODIUM 75 MCG TABLET PO SCH (05:28)
[2021-08-17] MEDS: FUROSEMIDE 40 MG/4 ML VIAL IV SCH ×2 (05:28→18:20)
[2021-08-17 07:16] LABS: Hematocrit (blood only) 26.8 % (42-52); Hemoglobin 8.7 g/dL (14.0-18.0); Mean Corpuscular Hgb Conc 32.5 g/dL (32-36); Mean Platelet Volume 10.4 fL (7.4-10.4); Platelet Count 243 K/uL (130-400); RDW Coefficient of Variation 21.4 % (11.5-14.5); RDW Standard Deviation 92.4 fL (36.4-46.3); Red Blood Count 2.29 M/uL (4.7-6.1)
[2021-08-17 07:35] LABS: Anisocytosis Present; BUN Creatinine Ratio 22.2 (10-20); Creatinine Clr Calc Pharmacy 13.3 ml/min; Est GFR (African American) 14.1 ml/min; Est GFR (Non-African American) 12.2 ml/min; Immature Granulocytes # (auto) 0.03 K/uL (0.00-0.02); Immature Granulocytes % (auto) 0.3 %; Lymphocytes # (auto) 1.11 K/uL (1.2-3.4); Lymphocytes % (auto) 12.8 %; Macrocytosis Present; Monocytes # (auto) 0.46 K/uL (0.11-0.59); Monocytes % (auto) 5.3 %; Neutrophils % (auto) 81.6 %; Ovalocytes 1+; Poikilocytosis Present; Potassium 3.8 mmol/L (3.5-5.1)
[2021-08-17 07:37] LABS: Albumin Level 3.4 gm/dl (3.4-5.0); Bilirubin Direct 1.2 mg/dl (0-0.2); Bilirubin,Total 2.2 mg/dl (0.2-1.0); Magnesium 2.5 mg/dl (1.7-2.4); Prothrombin Time 48.8 Seconds (9.0-12.0); Total Protein 5.9 gm/dl (6.0-8.3)
[2021-08-17] MEDS: PYRIDOXINE HCL 50 MG TAB PO SCH ×2 (08:33→20:56)
[2021-08-17] MEDS: FLUTICASONE PROPIONATE NA SPR 16 GM BTL NAE SCH (08:34)
[2021-08-17] MEDS: CYANOCOBALAMIN (B-12) 500 MCG TABLET PO SCH (08:34)
[2021-08-17] MEDS: AZELASTINE HCL 0.1% NASAL 200 SPRAYS/27,400 MCG BTL NAE SCH ×2 (08:34→20:56)
[2021-08-17] MEDS: METOPROLOL SUCC 25MG EXT REL TAB PO SCH ×3 (08:35→20:55)
[2021-08-17] MEDS: CHOLECALCIFEROL 1,000 UNITS 25 MCG TAB PO SCH (08:36)
[2021-08-17] MEDS: DOXYCYCLINE HYCLATE 100 MG CAP PO SCH ×2 (08:36→20:55)
[2021-08-17] MEDS: ASPIRIN 81 MG ECTAB PO SCH (08:36)
--- NOTE | 2021-08-17 09:22 | Pulmonology Progress Note ---
Date of Service August 17, 2021 Assessment & Plan (1) Pneumonia: Laterality: right Lung location: lower lobe of lung Pneumonia type: due to unspecified organism Qualified Code(s): J18.9 - Pneumonia, unspecified organism (2) Chronic heart failure with reduced ejection fraction and diastolic dysfunction: (3) Aortic stenosis, moderate: (4) SOB (shortness of breath): (5) Hypoxemia: Plan: Impression: 81-year-old male with a multiplicity of medical issues admitted with cough shortness of breath and hypoxemia. I suspect that his complaints are multifactorial. Cannot exclude an infectious etiology and he is on antibiotics. Also appears consistent with fluid overload. His creatinine continues to climb but his LFTs are improved today. Recommendations: 1. Probable pneumonia: Cultures are negative however his white count is elevated. Not sure what to make of a normal procalcitonin but do not think this excludes infection. The patient is currently D#4 antibiotics. He initially received Rocephin and is now been escalated to doxycycline and cefepime which should be more than adequate coverage for pneumonia. His white count is better. Culture data is negative to date. I think the patient can be deescalated to oral doxycycline and cefuroxime and would recommend completing 5 to 7 days of antimicrobial therapy. Follow-up chest x-ray in 4 to 6 weeks would be reasonable 2. Hypoxemic respiratory failure: Continue to wean oxygen as tolerated. 3. Management the patient's other medical issues is deferred to the primary admitting service. 4. History of pleural effusion: Chest x-ray does not demonstrate significant pleural fluid currently. Would not consider invasive pleural procedures unless the patient's INR was less than 1.5. The above recommendations and plan were discussed with the patient in detail. Admission and Anticipated Discharge Date Admission Date: August 14, 2021 Subjective Patient seen and examined. EMR reviewed. The patient reports that he feels better today. He is having less respiratory issues. He continues to exhibit some rhonchorous breathing. He is not really coughing up or expectorating phlegm. He does feel slightly congested in his chest. His appetite is better and he overall feels somewhat better. Review of Systems Review of Systems: All systems reviewed & are unremarkable except as noted in Subjective Physical Exam Constitutional: WD/WN, vitals as above Neck: trachea midline, no thyromegaly Respiratory: + tachypneic; no respiratory distress and no labored breathing Auscultation: + crackles, + rhonchi and + wheezes Cardiovascular: RRR, no murmur, no edema Gastrointestinal (Abdomen): normal bowel sounds, soft, nontender, no hepat osplenomegaly Musculoskeletal: Extremities: extremities normal to inspection Skin: no rashes, warm and dry Lymphatic: no cervical lymphadenopathy Results & Data Results & [facility] ([facility]) Vital Signs (Past 12 Hours) Vital Signs Temp Pulse Pulse Resp BP Pulse Ox 08/17/21 08:21 87 08/17/21 07:27 83 20 95 08/17/21 06:59 36.4 C L 88 19 108/68 95 08/17/21 02:57 36.6 C 68 18 121/70 96 08/17/21 00:29 68 20 99 08/16/21 23:01 36.6 C 71 20 123/71 100 Laboratory Results 08/17/21 06:53 08/17/21 06:53 Diagnostic Findings No new imaging PG Care Time/CCT Total # of Minutes Spent Total Time Spent with Patient: Total time spent is greater than 50% in coordination of care (as documented) at patient's floor/unit and/or counseling patient: Coding Level of Care Code 38844 Subseq Hosp Care Lvl 2 Diagnoses Pneumonia J18.9 Laterality: right Lung location: lower lobe of lung Pneumonia type: due to unspecified organism Chronic heart failure with reduced ejection fraction and diastolic dysfunction I50.42 Aortic stenosis, moderate I35.0 SOB (shortness of breath) R06.02 Hypoxemia R09.02
--- NOTE | 2021-08-17 09:43 | Cardiology Progress Note ---
Date of Service August 17, 2021 Assessment & Plan (1) SOB (shortness of breath): (2) Cough: (3) Aortic stenosis, moderate: (4) Cardiorenal syndrome with renal failure: (5) Chronic heart failure with reduced ejection fraction and diastolic dysfunction: (6) CKD (chronic kidney disease) stage 4, GFR 15-29 ml/min: (7) LBBB (left bundle branch block): (8) CLL (chronic lymphocytic leukemia): (9) HTN (hypertension): (10) HAWA (obstructive sleep apnea): (11) Tobacco use disorder: (12) Embolism, arterial, leg, left: (13) Ventricular tachycardia: (14) Ischemic cardiomyopathy: (15) Elevated transaminase level: (16) Anemia due to chronic disease treated with erythropoietin: (17) Bronchitis: (18) Anemia in CKD (chronic kidney disease): (19) Pneumonia: Plan: Patient with evidence of acute on chronic respiratory failure secondary to pneumonia and CHF exacerbation. Now will significant elevated transaminases, possibly due to hepatic congestion? GI now following. Hold Amiodarone. Hold Atorvastatin Liver US without acute findings. He has no abdominal pain. Volume status improved overnight with additional IV furosemide and one dose of metolazone. Unfortunately creatinine increased again to 4.2. If accurate, does not appear to have significant urine outputs. Monitor I+O's Low sodium diet 1500 ml fluid restriction Appreciate nephrology guidance. HR's are slightly higher this morning with reduced pacing, but he has not yet had morning metoprolol. Await response, monitor HR's, and consider titration of metoprolol while amiodarone is on hold. Continue antibiotics per hospitalist/pulm for pneumonia. Case discussed with Dr. Fox. Will follow. Admission and Anticipated Discharge Date Admission Date: August 14, 2021 Supervising Physician Co-Signing Physician Notes Patient seen and examined with Ros Maynard PA-C. Agree with findings and assessment as above. Subjective Patient resting in bed comfortably. Notes ongoing cough and SOB, but improved. Edema improved. No abdominal pain. No orthopnea, PND. No fever or chills. No sense of palpitations. He reports ongoing generalized weakness. Review of Systems Review of Systems: All systems reviewed & are unremarkable except as noted in HPI & below Physical Exam Constitutional: WD/WN, vitals as above + ill appearing Eyes: PERRL, conjunctivae normal, anicteric sclerae Neck: trachea midline, no thyromegaly Respiratory: + cough; no respiratory distress Auscultation: + crackles and + rhonchi Cardiovascular: Rate/Rhythm: regular rate and regular rhythm Heart Sounds: + murmur (III/) Extremities: + edema (trace ankle edema) Gastrointestinal (Abdomen): normal bowel sounds, soft, nontender, no hepatosplenomegaly Skin: no rashes, warm and dry Neurologic: PERRL, EOMI, accommodation nl, no face palsy, no dysarthria Psychiatric: A+Ox3, euthymic affect Results & Data ([facility]) Vital Signs (Past 12 Hours) Vital Signs Temp Pulse Pulse Resp BP Pulse Ox 08/17/21 08:21 87 08/17/21 07:27 83 20 95 08/17/21 06:59 36.4 C L 88 19 108/68 95 08/17/21 02:57 36.6 C 68 18 121/70 96 08/17/21 00:29 68 20 99 08/16/21 23:01 36.6 C 71 20 123/71 100 Laboratory Results 08/17/21 08/17/21 08/17/21 Range/Units 06:53 06:53 06:53 WBC 8.70 (4.8-10.8) K/uL RBC 2.29 L (4.7-6.1) M/uL Hgb 8.7 L (14.0-18.0) g/dL Hct 26.8 L (42-52) % MCV 117.0 H (80-100) fL MCH 38.0 H (25-34) pg MCHC 32.5 (32-36) g/dL RDW Std Deviation 92.4 H (36.4-46.3) fL RDW Coeff of Geovanni 21.4 H (11.5-14.5) % Plt Count 243 (130-400) K/uL MPV 10.4 (7.4-10.4) fL Immature Gran % (Auto) 0.3 % Neut % (Auto) 81.6 % Lymph % (Auto) 12.8 % Faulk % (Auto) 5.3 % Eos % (Auto) 0.0 % Baso % (Auto) 0.0 % Neut # (Auto) 7.10 H (1.4-6.5) K/uL Lymph # (Auto) 1.11 L (1.2-3.4) K/uL Faulk # (Auto) 0.46 (0.11-0.59) K/uL Eos # (Auto) 0.00 (0-0.5) K/uL Baso # (Auto) 0.00 (0-0.2) K/uL Immature Gran # (Auto) 0.03 H (0.00-0.02) K/uL Polychromasia Poikilocytosis Present Anisocytosis Present Macrocytosis Present Ovalocytes 1+ Acanthocytes (Spur) PT 48.8 H (9.0-12.0) Seconds INR 5.0 H (0.9-1.1) Sodium 136 (136-145) mmol/L Potassium 3.8 (3.5-5.1) mmol/L Chloride 99 (98-107) mmol/L Carbon Dioxide 22 (21-32) mmol/L Anion Gap 15 H (3-11) BUN 95 H (6-23) mg/dl Creatinine 4.28 H D (0.6-1.4) mg/dl Est Cr Clr Drug Dosing 13.3 ml/min Est GFR ( Amer) 14.1 ml/min Est GFR (Non-Af Amer) 12.2 ml/min BUN/Creatinine Ratio 22.2 H (10-20) Glucose 126 H (70-99(Fasting)) mg/dl Calcium 8.0 L (8.5-10.1) mg/dl Magnesium 2.5 H (1.7-2.4) mg/dl Total Bilirubin 2.2 H (0.2-1.0) mg/dl Direct Bilirubin 1.2 H (0-0.2) mg/dl AST 922 H (13-39) U/L ALT 1054 H (7-52) U/L Alkaline Phosphatase 108 H (34-104) U/L Total Protein 5.9 L (6.0-8.3) gm/dl Albumin 3.4 (3.4-5.0) gm/dl SARS-CoV-2 (PCR) (Negative) Hepatitis A IgM Ab (NON-REACTIVE) Hep B Core IgM Ab (NON-REACTIVE) Influenza Type A (PCR) (Neg) Influenza Type B (PCR) (Neg) RSV (RT-PCR) (Neg) 08/16/21 08/16/21 08/15/21 Range/Units 15:20 14:12 11:05 WBC 9.34 (4.8-10.8) K/uL RBC 2.40 L (4.7-6.1) M/uL Hgb 9.3 L (14.0-18.0) g/dL Hct 28.5 L (42-52) % MCV 118.8 H (80-100) fL MCH 38.8 H (25-34) pg MCHC 32.6 (32-36) g/dL RDW Std Deviation 94.3 H (36.4-46.3) fL RDW Coeff of Geovanni 21.7 H (11.5-14.5) % Plt Count 297 (130-400) K/uL MPV 10.6 H (7.4-10.4) fL Immature Gran % (Auto) 0.3 % Neut % (Auto) 83.2 % Lymph % (Auto) 13.6 % Faulk % (Auto) 2.8 % Eos % (Auto) 0.0 % Baso % (Auto) 0.1 % Neut # (Auto) 7.77 H (1.4-6.5) K/uL Lymph # (Auto) 1.27 (1.2-3.4) K/uL Faulk # (Auto) 0.26 (0.11-0.59) K/uL Eos # (Auto) 0.00 (0-0.5) K/uL Baso # (Auto) 0.01 (0-0.2) K/uL Immature Gran # (Auto) 0.03 H (0.00-0.02) K/uL Polychromasia 1+ Poikilocytosis Anisocytosis Present Macrocytosis Present Ovalocytes Acanthocytes (Spur) 1+ PT (9.0-12.0) Seconds INR (0.9-1.1) Sodium (136-145) mmol/L Potassium (3.5-5.1) mmol/L Chloride (98-107) mmol/L Carbon Dioxide (21-32) mmol/L Anion Gap (3-11) BUN (6-23) mg/dl Creatinine (0.6-1.4) mg/dl Est Cr Clr Drug Dosing ml/min Est GFR ( Amer) ml/min Est GFR (Non-Af Amer) ml/min BUN/Creatinine Ratio (10-20) Glucose (70-99(Fasting)) mg/dl Calcium (8.5-10.1) mg/dl Magnesium (1.7-2.4) mg/dl Total Bilirubin (0.2-1.0) mg/dl Direct Bilirubin (0-0.2) mg/dl AST (13-39) U/L ALT (7-52) U/L Alkaline Phosphatase (34-104) U/L Total Protein (6.0-8.3) gm/dl Albumin (3.4-5.0) gm/dl SARS-CoV-2 (PCR) NEGATIVE (Negative) Hepatitis A IgM Ab NON-REACTIVE (NON-REACTIVE) Hep B Core IgM Ab NON-REACTIVE (NON-REACTIVE) Influenza Type A (PCR) Negative (Neg) Influenza Type B (PCR) Negative (Neg) RSV (RT-PCR) Negative (Neg) Diagnostic Findings Telemetry reviewed - Appears NSR with intermittent pacing. Pacing percentage reduced from yesterday. HR's in the 80's (prior to AM dose of metoprolol) Portal Vein US - results pending Medications Administered Current Inpatient Medications Acetaminophen (Acetaminophen 325 Mg Tab) 650 mg PO Q4H PRN PRN Reason: Pain or Fever Stop: 09/13/21 16:44 Last Admin: 08/14/21 22:32 Dose: 650 mg Documented by: Amiodarone HCl (Amiodarone 200 Mg Tab) [facility] Stop: 09/14/21 08:59 Last Admin: 08/15/21 08:49 Dose: 200 mg Documented by: Aspirin (Aspirin 81 Mg Ectab) 81 [facility] [place] Stop: 09/14/21 08:59 Last Admin: 08/17/21 08:36 Dose: 81 mg Documented by: Atorvastatin Calcium (Atorvastatin 40 Mg Tab) 40 mg PO [facility] Stop: 09/13/21 20:59 Last Admin: 08/15/21 20:53 Dose: 40 mg Documented by: Azelastine HCl (Azelastine Hcl 0.1% Nasal 200 Sprays/27,400 Mcg Btl) 2 sprays RAMIRO BID [facility] Stop: 09/13/21 20:59 Last Admin: 08/17/21 08:34 Dose: 2 sprays Documented by: Cefuroxime Axetil (Cefuroxime Axetil 500 Mg Tab) 500 mg PO BID ABAD Stop: 08/24/21 20:59 Cyanocobalamin (Cyanocobalamin (B-12) 500 Mcg Tablet) 1,000 mcg PO QAM ABAD Stop: 09/14/21 08:59 Last Admin: 08/17/21 08:34 Dose: 1,000 mcg Documented by: Doxycycline Hyclate (Doxycycline Hyclate 100 Mg Cap) 100 mg PO BID ABAD Stop: 08/22/21 10:59 Last Admin: 08/17/21 08:36 Dose: 100 mg Documented by: Fluticasone Propionate (Fluticasone Propionate Na Spr 16 Gm Btl) 1 sprays RAMIRO DAILY ABAD Stop: 09/14/21 08:59 Last Admin: 08/17/21 08:34 Dose: 1 sprays Documented by: Furosemide (Furosemide 40 Mg/4 Ml Vial) 80 mg IV Q12H ABAD Stop: 09/15/21 05:59 Last Admin: 08/17/21 05:28 Dose: 80 mg Documented by: Promethazine HCl 6.25 mg/ (Sodium Chloride) 50.25 mls @ 201 mls/hr IV Q6H PRN PRN Reason: Nausea And Vomiting Stop: 09/14/21 18:29 Last Infusion: 08/16/21 01:16 Dose: Infused Documented by: Ipratropium [place] (Ipratropium [place] Neb Soln 0.02% 2.5 Ml Vial) 0.5 mg INH Q6R ABAD Stop: 09/14/21 10:59 Last Admin: 08/17/21 07:27 Dose: 0.5 mg Documented by: Levalbuterol HCl (Levalbuterol Hcl 0.63 Mg/3 Ml Neb) 0.63 mg NEB Q6R ABAD Stop: 09/14/21 10:59 Last Admin: 08/17/21 07:27 Dose: 0.63 mg Documented by: Levothyroxine Sodium (Levothyroxine Sodium 75 Mcg Tablet) 75 mcg PO DAILYBB ABAD Stop: 09/14/21 06:29 Last Admin: 08/17/21 05:28 Dose: 75 mcg Documented by: Melatonin (Melatonin 3 Mg Tab) 3 mg PO HS PRN PRN Reason: Sleep Stop: 09/13/21 22:10 Last Admin: 08/14/21 22:29 Dose: 3 mg Documented by: Metoprolol Succinate (Metoprolol Succ 25mg Ext Rel Tab) 12.5 mg PO BID [facility] Stop: 09/15/21 09:44 Last Admin: 08/17/21 08:35 Dose: 12.5 mg Documented by: Polyethylene Glycol (Polyethylene (Miralax) 17 Gm Pack) 17 gm PO DAILY PRN PRN Reason: Constipation Stop: 09/13/21 16:44 Pyridoxine HCl (Pyridoxine Hcl 50 Mg Tab) 100 mg PO BID [facility] Stop: 09/13/21 20:59 Last Admin: 08/17/21 08:33 Dose: 100 mg Documented by: Vitamin D (Cholecalciferol 1,000 Units 25 Mcg Tab) 1,000 units PO QAM [facility] Stop: 09/14/21 08:59 Last Admin: 08/17/21 08:36 Dose: 1,000 units Documented by: (1) Pneumonia Laterality: right Lung location: lower lobe of lung Pneumonia type: due to unspecified organism Qualified Code(s): J18.9 - Pneumonia, unspecified organism
--- NOTE | 2021-08-17 09:59 | Ultrasound Report ---
US duplex portal hepatic veins CLINICAL HISTORY: elevated lfts TECHNIQUE: Grayscale, color and spectral waveform Doppler examination of the abdomen was performed. Comparison: None available at the time of this dictation. FINDINGS: The hepatic veins, portal veins, IVC and splenic vein are patent with no thrombus identified. Flow is in the correct direction. Peak systolic velocity in the hepatic artery measures 40.3 cm/sec. Portal vein is normal. No ascites is seen. The splenic vein in the midline and hilum is patent with flow in the appropriate direction. IMPRESSION: No portal vein thrombosis. ACT 112: Negative or not required by law. Electronically signed by: Luciano Monterroso M.D. 08/17/2021 9:58 AM
--- NOTE | 2021-08-17 10:05 | Nephrology Progress Note ---
Date of Service August 17, 2021 Assessment & Plan Admission and Anticipated Discharge Date Admission Date: August 14, 2021 Subjective Subjective A/p---- 1 ARF on CKD 4--with fluid overload/Pulm congestion and pneumonia on top with resp failure. made 1200 ml urine continue lasix 80 bid Quite possible he may need Dialysis if no recovery within few days. Labs slightly worse today. He was equivocal when I asked him about dialysis. Will discuss more tomorrow S---Feels SOB but seems less Physical Exam Physical Exam: General: Awake and moaning. Not responding to direct questioning HEENT: Normocephalic, atraumatic. Pupils equal, round and reactive to light and accommodation. Extraocular muscles are intact. Anicteric sclera. Moist mucous membranes. Neck: No JVD. No bruit. Cardiovascular: Regular. Positive S-4. Normal S-1 and S-2. No S-3. 3/6 mid to late systolic ejection murmur, greatest at the right sternal border, second intercostal space with radiation to the bilateral carotids. No rubs. Pulmonary: b/l rhonchi. Abdomen: Bowel sounds x 4, soft. No rebound, guarding or tenderness. No organomegaly. Extremities: No clubbing, cyanosis or edema. Skin: Warm and dry. Results & Data ([facility]) Vital Signs (Past 12 Hours) Vital Signs Temp Pulse Pulse Resp BP Pulse Ox 08/17/21 08:21 87 08/17/21 07:27 83 20 95 08/17/21 06:59 36.4 C L 88 19 108/68 95 08/17/21 02:57 36.6 C 68 18 121/70 96 08/17/21 00:29 68 20 99 08/16/21 23:01 36.6 C 71 20 123/71 100
[2021-08-17] MEDS ORDERED: METOPROLOL SUCC 25MG EXT REL TAB PO ONE (11:30)
--- NOTE | 2021-08-17 12:38 | Hospitalist Progress Note ---
Date of Service August 17, 2021 Assessment & Plan (1) Acute and chronic respiratory failure with hypoxia: Plan: per admitting service notes with addendum: Patient is 81-year-old male with PMH HTN, chronic HFrEF, EF 20-25% on echo 2020, s/p ICD, ventricular tachycardia, LBBB, moderate aortic stenosis, CKD IV, arterial thrombosis, chronic anemia, pleural effusions, lymphoma treated with chemotherapy, myelodysplastic syndrome and other problems listed below presented to ER with complaint of shortness of breath and productive cough, rhinorrhea x 1 day. Denies fever/chills, CP. Recent h/o hospitalization for acute on chronic HFrEF, pleural effusions s/p bilateral thoracentesis, ICD placement on 06/15/2021, Acute on chronic respiratory failure with hypoxia secondary to bilateral pneumonia Acute on chronic kidney disease stage IV, likely ATN secondary to underlying pneumonia Acute on chronic CHF, systolic, ischemic cardiomyopathy, EF 25 to 30%, status post AICD placement CXR: Possible tiny bilateral pleural effusions, decreased from prior exam. Previously noted airspace opacities have resolved. There is mild pulmonary edema. Initially required BiPAP, transitioned to nasal cannula Clinically seems to be improving today Afebrile, leukocytosis resolved Sputum culture negative so far Blood cultures negative so far Transitioned from 2 days of cefepime and doxycycline to cefuroxime and doxycycline Appreciate modern languages professor recommendation Currently on Lasix 80 mg IV twice a day Given additional Lasix and metolazone yesterday, with some improvement with urine output, 1200 total urine output yesterday Continue Lasix 80 mg IV twice a day Discussed with radius corner machine operator, appreciate the recommendation History echo 05/15/2021: EF: 25-30%, large sized apical, septal, anterior septal, anterior and lateral wall motion abnormality with hypokinesis to akinesis of the segments. Mild diffuse right ventricular hypokinesis, moderate mitral regurgitation, mild to moderate tricuspid regurgitation, mild aortic valve stenosis, severe pulmonary hypertension, grade 2 diastolic dysfunction, Negative MRSA swab Elevated LFTs (+) direct bilirubinemia AST/ALT significantly increased to 2000s/1000s normal alk phos Liver US: gallstone in the GB neck from Cholelithiasis? from Amiodarone? Viral Hepatitis? GI consulted Amiodarone, Lipitor held, Hep Panel pending LFTs improving today Continue to monitor closely Acute on CKD (chronic kidney disease) stage 4 likely from ATN, from Underlying Pneumonia Cr: 3.0. Has been running 2-2.9 over the past 2 months. 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 Paroxysmal atrial fibrillation Current paced rhythm INR supratherapeutic at 6.6 Not given vitamin K or any reversal agent No signs of bleeding INR 5.0 Hold Coumadin Monitor INR daily Continue metoprolol Pleural effusion: History bilateral pleural effusions requiring thoracentesis in the recent past diuresis as per #1 Anemia in CKD (chronic kidney disease): Hgb: 8.7 Monitor closely DVT prophylaxis INR supratherapeutic Full code Disposition Lives at home with his son PT and OT evaluation Admission and Anticipated Discharge Date Admission Date: August 14, 2021 Subjective ff up for pneumonia, acute renal failure, CHF, etc seen resting in bed, comfortable on 2 L NC states he feels somewhat improved today breathing is improving has less cough no chest pain, dizziness, palpitations no nausea/vomiting, abdominal pain no other symptoms Review of Systems Review of Systems: all noted and negative except for above Physical Exam Physical Exam: General- oriented x 3, not in distress, speaks in sentences with no effort or accessory muscle use Somewhat weak Eyes- anicteric Neck- no JVD Lungs-mild rales at the bases Heart- normal rate, regular rhythm; no murmurs Abdomen- normal bowel sounds, nondistended, soft, nontender Extremities-mild bilateral lower leg edema, no erythema/warmth/tenderness Neuro- alert, oriented x 3; no new gross focal neurologic deficits Skin- warm & dry Results & Data Results & Data ([facility]) Vital Signs (Past 12 Hours) Vital Signs Temp Pulse Pulse Resp BP Pulse Ox 08/17/21 11:25 36.3 C L 87 19 103/63 98 08/17/21 08:21 87 08/17/21 07:27 83 20 95 08/17/21 06:59 36.4 C L 88 19 108/68 95 08/17/21 02:57 36.6 C 68 18 121/70 96 08/17/21 00:29 68 20 99 all noted and reviewed including below
--- NOTE | 2021-08-17 16:37 | Gastroenterology Progress Note ---
Date of Service August 17, 2021 Assessment & Plan (1) Cardiorenal syndrome with renal failure: (2) Elevated LFTs: (3) Chronic heart failure with reduced ejection fraction and diastolic dysfunction: (4) CKD (chronic kidney disease): (5) Supratherapeutic INR: Plan: 81-year-old male with CHF, history of ICD placement, A. fib, admitted w/ SOB, CHF, volume overload, worsening renal function/cardiorenal syndrome, and acutely elevated LFTs, supratherapeutic INR. No Brandon Dil on imaging, no obvious CBD stone. His ICD precludes MRCP. Consider most likely etiology for his LFTs is congestive hepatopathy; DILI, biliary stone/sludge. On exam, he has no GI complaints, abdomen is soft, nontender, no asterixis or evidence of hepatic encephalopathy. LFTs and INR are trending down today. - Hepatic duplex w/ no PVT - Acute hep panel neg - Would bring down INR to reduce risk of bleeding - Trend daily LFTs, INR. Would look for continued improvement in LFTs as CHF improves - Amiodarone being held. - Avoid Tylenol, other hepatotoxins Thank you for allowing us to participate in the care of this patient. Please call with any acute changes, questions or concerns. Please see addendum below with additional recommendation from my supervising physician. Admission and Anticipated Discharge Date Admission Date: August 14, 2021 Supervising Physician Co-Signing Physician Notes I have seen and examined the patient with Rob Lombardo PA-C whose note reflects our findings and plan. Subjective Patient seen and examined, chart reviewed. States he doesn't feel well; no great appetite. No n/v, abd pain, melena, hematochezia, fever, chills, CP. Breathing is about the same. Review of Systems Review of Systems: All systems reviewed & are unremarkable except as noted in HPI & below Physical Exam Respiratory: + bilateral rhonchi Cardiovascular: Rate/Rhythm: regular rate and regular rhythm Gastrointestinal (Abdomen): normal bowel sounds, soft, nontender, no hepatosplenomegaly Psychiatric: A+Ox3, euthymic affect Results & Data ([facility]) Vital Signs (Past 12 Hours) Vital Signs Temp Pulse Pulse Pulse Resp BP Pulse Ox 08/17/21 16:22 68 08/17/21 15:32 36.5 C 69 19 113/63 97 08/17/21 13:22 90 19 91 08/17/21 11:25 36.3 C L 87 19 103/63 98 08/17/21 08:21 87 08/17/21 07:27 83 20 95 08/17/21 06:59 36.4 C L 88 19 108/68 95 Laboratory Results 08/17/21 08/17/21 08/17/21 Range/Units 11:26 06:53 06:53 WBC 8.70 (4.8-10.8) K/uL RBC 2.29 L (4.7-6.1) M/uL Hgb 8.7 L (14.0-18.0) g/dL Hct 26.8 L (42-52) % MCV 117.0 H (80-100) fL MCH 38.0 H (25-34) pg MCHC 32.5 (32-36) g/dL RDW Std Deviation 92.4 H (36.4-46.3) fL RDW Coeff of Geovanni 21.4 H (11.5-14.5) % Plt Count 243 (130-400) K/uL MPV 10.4 (7.4-10.4) fL Immature Gran % (Auto) 0.3 % Neut % (Auto) 81.6 % Lymph % (Auto) 12.8 % [place] % (Auto) 5.3 % Eos % (Auto) 0.0 % Baso % (Auto) 0.0 % Neut # (Auto) 7.10 H (1.4-6.5) K/uL Lymph # (Auto) 1.11 L (1.2-3.4) K/uL [place] # (Auto) 0.46 (0.11-0.59) K/uL Eos # (Auto) 0.00 (0-0.5) K/uL Baso # (Auto) 0.00 (0-0.2) K/uL Immature Gran # (Auto) 0.03 H (0.00-0.02) K/uL Poikilocytosis Present Anisocytosis Present Macrocytosis Present Ovalocytes 1+ PT (9.0-12.0) Seconds INR (0.9-1.1) Sodium 136 (136-145) mmol/L Potassium 3.8 (3.5-5.1) mmol/L Chloride 99 (98-107) mmol/L Carbon Dioxide 22 (21-32) mmol/L Anion Gap 15 H (3-11) BUN 95 H (6-23) mg/dl Creatinine 4.28 H D (0.6-1.4) mg/dl Est Cr Clr Drug Dosing 13.3 ml/min Est GFR ( Amer) 14.1 ml/min Est GFR (Non-Af Amer) 12.2 ml/min BUN/Creatinine Ratio 22.2 H (10-20) Glucose 126 H (70-99(Fasting)) mg/dl POC Glucose 168 H (70-99) mg/dl Calcium 8.0 L (8.5-10.1) mg/dl Magnesium 2.5 H (1.7-2.4) mg/dl Total Bilirubin 2.2 H (0.2-1.0) mg/dl Direct Bilirubin 1.2 H (0-0.2) mg/dl AST 922 H (13-39) U/L ALT 1054 H (7-52) U/L Alkaline Phosphatase 108 H (34-104) U/L Total Protein 5.9 L (6.0-8.3) gm/dl Albumin 3.4 (3.4-5.0) gm/dl Hepatitis A IgM Ab (NON-REACTIVE) Hep B Core IgM Ab (NON-REACTIVE) 08/17/21 08/15/21 Range/Units 06:53 11:05 WBC (4.8-10.8) K/uL RBC (4.7-6.1) M/uL Hgb (14.0-18.0) g/dL Hct (42-52) % MCV (80-100) fL MCH (25-34) pg MCHC (32-36) g/dL RDW Std Deviation (36.4-46.3) fL RDW Coeff of Geovanni (11.5-14.5) % Plt Count (130-400) K/uL MPV (7.4-10.4) fL Immature Gran % (Auto) % Neut % (Auto) % Lymph % (Auto) % [place] % (Auto) % Eos % (Auto) % Baso % (Auto) % Neut # (Auto) (1.4-6.5) K/uL Lymph # (Auto) (1.2-3.4) K/uL [place] # (Auto) (0.11-0.59) K/uL Eos # (Auto) (0-0.5) K/uL Baso # (Auto) (0-0.2) K/uL Immature Gran # (Auto) (0.00-0.02) K/uL Poikilocytosis Anisocytosis Macrocytosis Ovalocytes PT 48.8 H (9.0-12.0) Seconds INR 5.0 H (0.9-1.1) Sodium (136-145) mmol/L Potassium (3.5-5.1) mmol/L Chloride (98-107) mmol/L Carbon Dioxide (21-32) mmol/L Anion Gap (3-11) BUN (6-23) mg/dl Creatinine (0.6-1.4) mg/dl Est Cr Clr Drug Dosing ml/min Est GFR ( Amer) ml/min Est GFR (Non-Af Amer) ml/min BUN/Creatinine Ratio (10-20) Glucose (70-99(Fasting)) mg/dl POC Glucose (70-99) mg/dl Calcium (8.5-10.1) mg/dl Magnesium (1.7-2.4) mg/dl Total Bilirubin (0.2-1.0) mg/dl Direct Bilirubin (0-0.2) mg/dl AST (13-39) U/L ALT (7-52) U/L Alkaline Phosphatase (34-104) U/L Total Protein (6.0-8.3) gm/dl Albumin (3.4-5.0) gm/dl Hepatitis A IgM Ab NON-REACTIVE (NON-REACTIVE) Hep B Core IgM Ab NON-REACTIVE (NON-REACTIVE) Diagnostic Findings Hepatic duplex: The hepatic veins, portal veins, IVC and splenic vein are patent with no thrombus identified. Flow is in the correct direction. Peak systolic velocity in the hepatic artery measures 40.3 cm/sec. Portal vein is normal. No ascites is seen. The splenic vein in the midline and hilum is patent with flow in the appropriate direction. IMPRESSION: No portal vein thrombosis.
[2021-08-17] MEDS ORDERED: cefUROXime axetil 250 MG TABLET PO SCH (21:00)
[2021-08-17] MEDS ORDERED: cefUROXime axetil 500 MG TAB PO SCH (21:00)
[2021-08-18] MEDS: IPRATROPIUM BROMIDE NEB SOLN 0.02% 2.5 ML VIAL INH SCH ×2 (00:04→06:52)
[2021-08-18] MEDS: LEVALBUTEROL HCL 0.63 MG/3 ML NEB NEB SCH ×2 (00:04→06:52)
[2021-08-18] MEDS: LEVOTHYROXINE SODIUM 75 MCG TABLET PO SCH (05:59)
[2021-08-18] MEDS: FUROSEMIDE 40 MG/4 ML VIAL IV SCH ×2 (06:00→18:08)
[2021-08-18 07:27] LABS: Hematocrit (blood only) 25.8 % (42-52); Hemoglobin 8.7 g/dL (14.0-18.0); Immature Granulocytes # (auto) 0.06 K/uL (0.00-0.02); Immature Granulocytes % (auto) 0.6 %; Lymphocytes # (auto) 1.49 K/uL (1.2-3.4); Lymphocytes % (auto) 14.1 %; Mean Corpuscular Hemoglobin 39.4 pg (25-34); Mean Corpuscular Hgb Conc 33.7 g/dL (32-36); Mean Corpuscular Volume 116.7 fL (80-100); Mean Platelet Volume 10.4 fL (7.4-10.4); Monocytes # (auto) 0.87 K/uL (0.11-0.59); Monocytes % (auto) 8.3 %; Neutrophils # (auto) 8.12 K/uL (1.4-6.5); Platelet Count 217 K/uL (130-400); RDW Standard Deviation 91.3 fL (36.4-46.3); Red Blood Count 2.21 M/uL (4.7-6.1); White Blood Count 10.54 K/uL (4.8-10.8)
[2021-08-18 07:50] LABS: INR 3.5 (0.9-1.1); Prothrombin Time 35.2 Seconds (9.0-12.0)
[2021-08-18 07:51] LABS: BUN Creatinine Ratio 24.9 (10-20); Calcium 8.2 mg/dl (8.5-10.1); Creatinine Clr Calc Pharmacy 13.7 ml/min; Est GFR (African American) 14.6 ml/min; Est GFR (Non-African American) 12.6 ml/min; Potassium 3.5 mmol/L (3.5-5.1)
[2021-08-18 07:59] LABS: Acanthocytes 1+; Anisocytosis Present; Macrocytosis Present; Ovalocytes 1+
[2021-08-18 08:04] LABS: Albumin Level 3.2 gm/dl (3.4-5.0); Bilirubin,Total 1.9 mg/dl (0.2-1.0); Magnesium 2.5 mg/dl (1.7-2.4); Total Protein 5.8 gm/dl (6.0-8.3)
--- NOTE | 2021-08-18 08:17 | Pulmonology Progress Note ---
Date of Service August 18, 2021 Assessment & Plan (1) Pneumonia: Laterality: right Lung location: lower lobe of lung Pneumonia type: due to unspecified organism Qualified Code(s): J18.9 - Pneumonia, unspecified organism (2) Chronic heart failure with reduced ejection fraction and diastolic dysfunction: (3) Aortic stenosis, moderate: (4) SOB (shortness of breath): (5) Hypoxemia: Plan: Impression: 81-year-old male with a multiplicity of medical issues admitted with cough shortness of breath and hypoxemia. I suspect that his complaints are multifactorial. He is diuresing. His creatinine is stabilized. Liver function tests are improved. His coagulopathy continues to trend down. He is now on room air but slightly more encephalopathic Recommendations: 1. Probable pneumonia: Cultures are negative however his white count is elevated. Not sure what to make of a normal procalcitonin but do not think this excludes infection. The patient is currently D#5 antibiotics. He initially received Rocephin and then doxycycline and cefepime, yesterday he was deescalated to oral doxycycline and cefuroxime. Think we can discontinue antibiotics at this point in time follow-up chest x-ray in 4 to 6 weeks would be reasonable 2. Hypoxemic respiratory failure: Continue to wean oxygen as tolerated. 3. Management the patient's other medical issues is deferred to the primary admitting service. 4. History of pleural effusion: Chest x-ray does not demonstrate significant pleural fluid currently. Would not consider invasive pleural procedures unless the patient's INR was less than 1.5. 5. Wheezing: Unclear if the patient carries a diagnosis of COPD. PFTs are not available. We will place him on scheduled DuoNebs as well as Perforomist to see if this offers improvement in the patient's wheezing. Given his age and medical issues, I am not sure that he can adequately breath-hold with a metered-dose inhaler right now. Given current concerns about pneumonia, will hold off on ICS The above recommendations and plan were discussed with the patient in detail. Will reassess in AM. Call if questions. Admission and Anticipated Discharge Date Admission Date: August 14, 2021 Subjective Patient seen and examined. EMR reviewed. He is slightly encephalopathic this morning but reorients fairly easily. He is off oxygen and now on room air. He feels slight congestion in his chest but is not expectorating any phlegm. No fevers chills or night sweats overnight. Review of Systems Review of Systems: All systems reviewed & are unremarkable except as noted in Subjective Physical Exam Constitutional: WD/WN, vitals as above Neck: trachea midline, no thyromegaly Respiratory: + tachypneic; no respiratory distress and no labored breathing Auscultation: + crackles, + rhonchi and + wheezes Cardiovascular: RRR, no murmur, no edema Gastrointestinal (Abdomen): normal bowel sounds, soft, nontender, no hepatosplenomegaly Musculoskeletal: Extremities: extremities normal to inspection Skin: no rashes, warm and dry Lymphatic: no cervical lymphadenopathy Results & Data Results & Data ([facility]) Vital Signs (Past 12 Hours) Vital Signs Temp Pulse Pulse Pulse Resp BP BP 08/18/21 07:09 36.4 C L 88 22 102/68 08/18/21 06:53 63 18 08/18/21 05:10 67 08/18/21 04:12 36.4 C L 61 18 104/61 08/18/21 00:05 75 20 08/17/21 23:00 36.4 C L 66 18 96/48 L Pulse Ox 08/18/21 07:09 93 08/18/21 06:53 99 08/18/21 05:10 08/18/21 04:12 99 08/18/21 00:05 96 08/17/21 23:00 93 Laboratory Results 08/18/21 07:03 08/18/21 07:03 Diagnostic Findings No new imaging PG Care Time/CCT Total # of Minutes Spent Total Time Spent with Patient: Total time spent is greater than 50% in coordination of care (as documented) at patient's floor/unit and/or counseling patient: Coding Level of Care Code 17431 Subseq Hosp Care Lvl 2 Diagnoses Pneumonia J18.9 Laterality: right Lung location: lower lobe of lung Pneumonia type: due to unspecified organism Chronic heart failure with reduced ejection fraction and diastolic dysfunction I50.42 Aortic stenosis, moderate I35.0 SOB (shortness of breath) R06.02 Hypoxemia R09.02
[2021-08-18] MEDS: AZELASTINE HCL 0.1% NASAL 200 SPRAYS/27,400 MCG BTL NAE SCH ×2 (09:47→20:50)
[2021-08-18] MEDS: ASPIRIN 81 MG ECTAB PO SCH (09:47)
[2021-08-18] MEDS: CHOLECALCIFEROL 1,000 UNITS 25 MCG TAB PO SCH (09:47)
--- NOTE | 2021-08-18 09:47 | Communication Note ---
Date of Service: August 18, 2021 Chart reviewed. LFTs and INR continue to progressively improve. Most likely etiology for his LFTs is congestive hepatopathy; less likely DILI. - Trend daily LFTs, INR. Would look for continued improvement in LFTs as CHF improves - Hepatic duplex w/ no PVT - Acute hep panel neg - Continue to watch for improvement in INR - Amiodarone being held. - Avoid Tylenol, other hepatotoxins Thank you for allowing us to participate in the care of this patient. Please call with any acute changes, questions or concerns. Please see addendum below with additional recommendation from my supervising physician.
[2021-08-18] MEDS: FLUTICASONE PROPIONATE NA SPR 16 GM BTL NAE SCH ×2 (09:48→09:59)
[2021-08-18] MEDS: CYANOCOBALAMIN (B-12) 500 MCG TABLET PO SCH (09:48)
[2021-08-18] MEDS: PYRIDOXINE HCL 50 MG TAB PO SCH ×2 (09:50→20:50)
[2021-08-18] MEDS: METOPROLOL SUCC 25MG EXT REL TAB PO SCH ×2 (09:54→20:49)
--- NOTE | 2021-08-18 10:21 | Nephrology Progress Note ---
Date of Service August 18, 2021 Assessment & Plan Admission and Anticipated Discharge Date Admission Date: August 14, 2021 Subjective [facility], [id number] Nephrology Progress Note Signed Patient:BLAYNE GRANADOS Admit Date:08/14/21 MR#:[id number] Att Phy:Ken Mendiola MD Acct ID:[id number] [place] Phy:Zoe Healyr DO Satya Date:1940 Fam Phy: Age:81 Location:2S Sex:M Room[facility]Bed:E[facility] cc: ~ *NOTICE TO RECEIVING GREEN PARTY/AGENCY This information is strictly Confidential and protected under [place] law. [place] law prohibits you from making any further disclosure of this information unless further disclosure is expressly permitted by the written consent of the person to whom it pertains or is authorized by law. A general authorization for the release of medical or other information is not sufficient for this purpose. Hospital accepts no responsibility if the information is made available to any other person, INCLUDING THE PATIENT. Assessment & Plan Subjective A/p---- 1 ARF on CKD 4--with fluid overload/Pulm congestion and pneumonia on top with resp failure. made 2200 ml urine yesterday on lasix 80 bid--rising Creat slightly better but BUN slightly worse. He was equivocal when I asked him about dialysis. But does not need Dialysis at this time S---Feels SOB but seems less and also on RA now. Making urine and no edema now Physical Exam Physical Exam: General: Awake and moaning. Not responding to direct questioning HEENT: Normocephalic, atraumatic. Pupils equal, round and reactive to light and accommodation. Extraocular muscles are intact. Anicteric sclera. Moist mucous membranes. Neck: No JVD. No bruit. Cardiovascular: Regular. Positive S-4. Normal S-1 and S-2. No S-3. 3/6 mid to late systolic ejection murmur, greatest at the right sternal border, second intercostal space with radiation to the bilateral carotids. No rubs. Pulmonary: b/l rhonchi. Abdomen: Bowel sounds x 4, soft. No rebound, guarding or tenderness. No organomegaly. Extremities: No edema. Skin: Warm and dry. Results & Data ([facility]) Vital Signs (Past 12 Hours) Vital Signs Temp Pulse Pulse Pulse Resp BP BP 08/18/21 07:09 36.4 C L 88 22 102/68 08/18/21 06:53 63 18 08/18/21 05:10 67 08/18/21 04:12 36.4 C L 61 18 104/61 08/18/21 00:05 75 20 08/17/21 23:00 36.4 C L 66 18 96/48 L Pulse Ox 08/18/21 07:09 93 08/18/21 06:53 99 08/18/21 05:10 08/18/21 04:12 99 08/18/21 00:05 96 08/17/21 23:00 93
[2021-08-18] MEDS: FORMOTEROL 20 MCG/2 ML VIAL NEB SCH ×2 (10:50→19:41)
[2021-08-18] MEDS: ALBUT/IPRATROP 3MG/0.5MG NEB 3 ML VIAL NEB SCH ×3 (10:50→19:41)
--- NOTE | 2021-08-18 12:54 | Cardiology Progress Note ---
Date of Service August 18, 2021 Assessment & Plan (1) SOB (shortness of breath): (2) Cough: (3) Aortic stenosis, moderate: (4) Cardiorenal syndrome with renal failure: (5) Chronic heart failure with reduced ejection fraction and diastolic dysfunction: (6) CKD (chronic kidney disease) stage 4, GFR 15-29 ml/min: (7) LBBB (left bundle branch block): (8) CLL (chronic lymphocytic leukemia): (9) HTN (hypertension): (10) HAWA (obstructive sleep apnea): (11) Tobacco use disorder: (12) Embolism, arterial, leg, left: (13) Ventricular tachycardia: (14) Ischemic cardiomyopathy: (15) Elevated transaminase level: (16) Anemia due to chronic disease treated with erythropoietin: (17) Bronchitis: (18) Anemia in CKD (chronic kidney disease): (19) Pneumonia: Plan: Patient with evidence of acute on chronic respiratory failure secondary to pneumonia and CHF exacerbation. Significantly elevated transaminases, possibly due to hepatic congestion and Worsening renal function also noted during admission. Continue to hold amiodarone and atorvastatin. likely resume as LFT's improve. Liver US without acute findings. He has no abdominal pain as well. appreciate GI consult. Continue higher dose metoprolol 25 mg BID to aid/suppress arrhythmias while holding amiodarone. Better urine outputs over the last 48 hours. Volume status improved today. Creatinine remains elevated above prior baseline. Monitor I+O's Low sodium diet 1500 ml fluid restriction appreciate nephrology guidance on diuretics. No indication for dialysis at this time. Continue antibiotics per hospitalist/pulm for pneumonia. Case discussed with Dr. Lemus. Admission and Anticipated Discharge Date Admission Date: August 14, 2021 Supervising Physician Co-Signing Physician Notes I have seen and examined the patient. I reviewed the medical record and discussed the case with Hina Caesar. I agree with the plan as outlined above. Subjective Patient resting in bed comfortably. Now on RA. Reports breathing seems better. Less cough. Edema improved. Good urine outputs overnight. Review of Systems Review of Systems: All systems reviewed & are unremarkable except as noted in HPI & below Physical Exam Constitutional: WD/WN, vitals as above + ill appearing Eyes: PERRL, conjunctivae normal, anicteric sclerae Neck: trachea midline, no thyromegaly Respiratory: + cough; no respiratory distress Auscultation: + crackles and + rhonchi Cardiovascular: Rate/Rhythm: regular rate and regular rhythm Heart Sounds: + murmur (III/) Vessels: + JVD Extremities: no edema Gastrointestinal (Abdomen): normal bowel sounds, soft, nontender, no hepatosplenomegaly Skin: no rashes, warm and dry Neurologic: PERRL, EOMI, accommodation nl, no face palsy, no dysarthria Psychiatric: A+Ox3, euthymic affect Results & Data ([facility]) Vital Signs (Past 12 Hours) Vital Signs Temp Pulse Pulse Pulse Resp BP BP 08/18/21 11:29 36.4 C L 86 19 93/54 L 08/18/21 10:50 63 20 08/18/21 07:09 36.4 C L 88 22 102/68 08/18/21 06:53 63 18 08/18/21 05:10 67 08/18/21 04:12 36.4 C L 61 18 104/61 Pulse Ox 08/18/21 11:29 91 08/18/21 10:50 93 08/18/21 07:09 93 08/18/21 06:53 99 08/18/21 05:10 08/18/21 04:12 99 Laboratory Results 08/18/21 08/18/21 08/18/21 Range/Units 07:03 07:03 07:03 WBC 10.54 (4.8-10.8) K/uL RBC 2.21 L (4.7-6.1) M/uL Hgb 8.7 L (14.0-18.0) g/dL Hct 25.8 L (42-52) % MCV 116.7 H (80-100) fL MCH 39.4 H (25-34) pg MCHC 33.7 (32-36) g/dL RDW Std Deviation 91.3 H (36.4-46.3) fL RDW Coeff of Geovanni 21.0 H (11.5-14.5) % Plt Count 217 (130-400) K/uL MPV 10.4 (7.4-10.4) fL Immature Gran % (Auto) 0.6 % Neut % (Auto) 77.0 % Lymph % (Auto) 14.1 % [place] % (Auto) 8.3 % Eos % (Auto) 0.0 % Baso % (Auto) 0.0 % Neut # (Auto) 8.12 H (1.4-6.5) K/uL Lymph # (Auto) 1.49 (1.2-3.4) K/uL [place] # (Auto) 0.87 H (0.11-0.59) K/uL Eos # (Auto) 0.00 (0-0.5) K/uL Baso # (Auto) 0.00 (0-0.2) K/uL Immature Gran # (Auto) 0.06 H (0.00-0.02) K/uL Anisocytosis Present Macrocytosis Present Ovalocytes 1+ Acanthocytes (Spur) 1+ PT 35.2 H (9.0-12.0) Seconds INR 3.5 H (0.9-1.1) Sodium 139 (136-145) mmol/L Potassium 3.5 (3.5-5.1) mmol/L Chloride 100 (98-107) mmol/L Carbon Dioxide 24 (21-32) mmol/L Anion Gap 15 H (3-11) BUN 104 H (6-23) mg/dl Creatinine 4.17 H (0.6-1.4) mg/dl Est Cr Clr Drug Dosing 13.7 ml/min Est GFR ( Amer) 14.6 ml/min Est GFR (Non-Af Amer) 12.6 ml/min BUN/Creatinine Ratio 24.9 H (10-20) Glucose 123 H (70-99(Fasting)) mg/dl Calcium 8.2 L (8.5-10.1) mg/dl Magnesium 2.5 H (1.7-2.4) mg/dl Total Bilirubin 1.9 H (0.2-1.0) mg/dl Direct Bilirubin 1.0 H (0-0.2) mg/dl AST 406 H (13-39) U/L ALT 797 H (7-52) U/L Alkaline Phosphatase 105 H (34-104) U/L Total Protein 5.8 L (6.0-8.3) gm/dl Albumin 3.2 L (3.4-5.0) gm/dl Diagnostic Findings telemetry reviewed - Appears AV paced rhythm with intermittent sinus beats. No sustained arrhythmias. HR's 80's. Medications Administered Current Inpatient Medications Acetaminophen (Acetaminophen 325 Mg Tab) 650 mg PO Q4H PRN PRN Reason: Pain or Fever Stop: 09/13/21 16:44 Last Admin: 08/14/21 22:32 Dose: 650 mg Documented by: Albuterol (Albut/Ipratrop 3mg/0.5mg Neb 3 Ml Vial) 3 ml NEB QIDR [facility]; Protocol Stop: 09/17/21 10:59 Last Admin: 08/18/21 10:50 Dose: 3 ml Documented by: Amiodarone HCl (Amiodarone 200 Mg Tab) [facility] Stop: 09/14/21 08:59 Last Admin: 08/15/21 08:49 Dose: 200 mg Documented by: Aspirin (Aspirin 81 Mg Ectab) 81 [facility] Stop: 09/14/21 08:59 Last Admin: 08/18/21 09:47 Dose: 81 mg Documented by: Atorvastatin Calcium (Atorvastatin 40 Mg Tab) 40 mg PO HS [facility] Stop: 09/13/21 20:59 Last Admin: 08/15/21 20:53 Dose: 40 mg Documented by: Azelastine HCl (Azelastine Hcl 0.1% Nasal 200 Sprays/27,400 Mcg Btl) 2 sprays RAMIRO BID [facility] Stop: 09/13/21 20:59 Last Admin: 08/18/21 09:47 Dose: 2 sprays Documented by: Cyanocobalamin (Cyanocobalamin (B-12) 500 Mcg Tablet) 1,000 mcg PO QAM [facility] Stop: 09/14/21 08:59 Last Admin: 08/18/21 09:48 Dose: 1,000 mcg Documented by: Fluticasone Propionate (Fluticasone Propionate Na Spr 16 Gm Btl) 1 sprays RAMIRO DAILY [facility] Stop: 09/14/21 08:59 Last Admin: 08/18/21 09:59 Dose: Not Given Documented by: Formoterol Fumarate (Formoterol 20 Mcg/2 Ml Vial) 20 mcg NEB BID [facility] Stop: 09/17/21 08:59 Last Admin: 08/18/21 10:50 Dose: Not Given Documented by: Furosemide (Furosemide 40 Mg/4 Ml Vial) 80 mg IV Q12H [facility] Stop: 09/15/21 05:59 Last Admin: 08/18/21 06:00 Dose: 80 mg Documented by: Promethazine HCl 6.25 mg/ (Sodium Chloride) 50.25 mls @ 201 mls/hr IV Q6H PRN PRN Reason: Nausea And Vomiting Stop: 09/14/21 18:29 Last Infusion: 08/16/21 01:16 Dose: Infused Documented by: Levothyroxine Sodium (Levothyroxine Sodium 75 Mcg Tablet) 75 mcg PO DAILYBB [facility] Stop: 09/14/21 06:29 Last Admin: 08/18/21 05:59 Dose: 75 mcg Documented by: Melatonin (Melatonin 3 Mg Tab) 3 mg PO HS PRN PRN Reason: Sleep Stop: 09/13/21 22:10 Last Admin: 08/14/21 22:29 Dose: 3 mg Documented by: Metoprolol Succinate (Metoprolol Succ 25mg Ext Rel Tab) 25 mg PO BID [facility] Stop: 09/16/21 20:59 Last Admin: 08/18/21 09:54 Dose: Not Given Documented by: Polyethylene Glycol (Polyethylene (Miralax) 17 Gm Pack) 17 gm PO DAILY PRN PRN Reason: Constipation Stop: 09/13/21 16:44 Pyridoxine HCl (Pyridoxine Hcl 50 Mg Tab) 100 mg PO BID [facility] Stop: 09/13/21 20:59 Last Admin: 08/18/21 09:50 Dose: 100 mg Documented by: Vitamin D (Cholecalciferol 1,000 Units 25 Mcg Tab) 1,000 units PO QAM [facility] Stop: 09/14/21 08:59 Last Admin: 08/18/21 09:47 Dose: 1,000 units Documented by: (1) Pneumonia Laterality: right Lung location: lower lobe of lung Pneumonia type: due to unspecified organism Qualified Code(s): J18.9 - Pneumonia, unspecified organism
--- NOTE | 2021-08-18 15:01 | Hospitalist Progress Note ---
Date of Service August 18, 2021 Assessment & Plan (1) Acute and chronic respiratory failure with hypoxia: Plan: Patient is an 81 yr male with H/O HTN, chronic HFrEF, EF 20-25% on echo 2020, s/p ICD, ventricular tachycardia, LBBB, moderate aortic stenosis, CKD IV, arterial thrombosis, chronic anemia, pleural effusions, lymphoma treated with chemotherapy, myelodysplastic syndrome and other problems listed below presented to ER with complaint of shortness of breath and productive cough, rhinorrhea x 1 day. Recent h/o hospitalization for acute on chronic HFrEF, pleural effusions s/p bilateral thoracentesis, ICD placement on 06/15/2021 Acute on chronic respiratory failure with hypoxia secondary to bilateral pneumonia Acute Kidney Injury on CKD IV, likely ATN Acute on chronic CHF, systolic and Diastolic H/O Ischemic cardiomyopathy, EF 25 to 30%, S/P AICD placement --CXR: Possible tiny bilateral pleural effusions, decreased from prior exam. Previously noted airspace opacities have resolved. There is mild pulmonary edema. --ECHO 05/15/2021: EF: 25-30%, large sized apical, septal, anterior septal, anterior and lateral wall motion abnormality with hypokinesis to akinesis of the segments. Mild diffuse right ventricular hypokinesis, moderate mitral regurgitation, mild to moderate tricuspid regurgitation, mild aortic valve stenosis, severe pulmonary hypertension, grade 2 diastolic dysfunction --Sputum culture negative --Blood cultures negative to date Empirically received cefepime and doxycycline for 2 days and then cefuroxime and doxycycline Day #3 Appreciate pulmonology recommendations Antibiotics discontinued Needs repeat chest x-ray in 4 to 6 weeks Continue scheduled nebs, Perforomist Continue IV Lasix 80 mg BID Appreciate Nephrology, Cardiology Input Monitor Volume status On Fluid restriction Elevated LFTs Bilirubinemia AST/ALT significantly increased to 2000s/1000s Normal alkaline phosphatase --Liver US: Limited examination due to overlying bowel gas. Increased echogenicity of the liver. Cholelithiasis with no ultrasound evidence for acute cholecystitis.Increase fluid over the dome of the liver characteristic of increased ascites. --Portal Vein USD:No portal vein thrombosis. --Hepatitis Panel: Negative Elevated LFTs likely etiology to be congestive hepatopathy, less likely DILI LFTs slowly improving Monitor INR Amiodarone held Avoid all hepatotoxic agents as able Appreciate GI input Paroxysmal atrial fibrillation Current paced rhythm INR supratherapeutic at 6.6 on presentation Abdominal Continue metoprolol 25 mg twice daily Appreciate cardiology input Monitor INR: 3.5 Pleural effusion: H/O B/L pleural effusions requiring thoracentesis in the recent past Continue diuresis as above Anemia of CKD (chronic kidney disease): Hgb: 8.7 Monitor H/O Lymphoma H/O Myelodysplastic syndrome As per records DVT Px: INR supratherapeutic Code Status Full code Disposition Lives at home with his son PT/OT prior to discharge Admission and Anticipated Discharge Date Admission Date: August 14, 2021 Subjective Patient is seen and examined at bedside States having cough with brownish expectoration Less short of breath today Discussed with nephrology today Denies any chest pain, dizziness, nausea, abdominal pain Offers no other complaints Review of Systems Review of Systems: All systems reviewed & are unremarkable except as noted in Subjective Physical Exam Physical Exam: Physical Exam: Vitals signs as noted above General Appearance:Moderately built and nourished, ill appearing, no apparent distress Head: normocephalic, Atraumatic Eyes: normal inspection, EOMI Neck: supple, Trachea midline Respiratory/Chest: Coarse breath sounds, scattered crackles, wheezes, rhonchi Cardiovascular: S1, S2, + murmur Abdomen/GI:Soft, Non tender, Bowel sounds present Extremities/Musculoskeletal:normal inspection, no edema Neurologic/Psych:AAOX3, grossly no focal neurological deficits Skin: normal color, warm Results & Data Results & Data ([facility]) Vital Signs (Past 12 Hours) Vital Signs Temp Pulse Pulse Pulse Resp BP BP 08/18/21 11:29 36.4 C L 86 19 93/54 L 08/18/21 10:50 63 20 08/18/21 07:09 36.4 C L 88 22 102/68 08/18/21 06:53 63 18 08/18/21 06:15 68 08/18/21 05:10 67 08/18/21 04:12 36.4 C L 61 18 104/61 Pulse Ox 08/18/21 11:29 91 08/18/21 10:50 93 08/18/21 07:09 93 08/18/21 06:53 99 08/18/21 06:15 08/18/21 05:10 08/18/21 04:12 99 Laboratory Results Short CBC 08/18/21 Range/Units 07:03 WBC 10.54 (4.8-10.8) K/uL Hgb 8.7 L (14.0-18.0) g/dL Hct 25.8 L (42-52) % Plt Count 217 (130-400) K/uL BMP 08/18/21 07:03 Sodium 139 Potassium 3.5 Chloride 100 Carbon Dioxide 24 BUN 104 H Creatinine 4.17 H Glucose 123 H Calcium 8.2 L Liver Function 08/18/21 Range/Units 07:03 Total Bilirubin 1.9 H (0.2-1.0) mg/dl Direct Bilirubin 1.0 H (0-0.2) mg/dl AST 406 H (13-39) U/L ALT 797 H (7-52) U/L Alkaline Phosphatase 105 H (34-104) U/L Albumin 3.2 L (3.4-5.0) gm/dl
[2021-08-18] MEDS ORDERED: ALBUMIN 25% 100 mL 25 GM/100 ML VIAL IV ONE (20:51)
[2021-08-19] MEDS: ALBUT/IPRATROP 3MG/0.5MG NEB 3 ML VIAL NEB SCH ×5 (03:05→19:38)
[2021-08-19] MEDS: FUROSEMIDE 40 MG/4 ML VIAL IV SCH (05:54)
[2021-08-19] MEDS: LEVOTHYROXINE SODIUM 75 MCG TABLET PO SCH (05:54)
[2021-08-19 06:21] LABS: INR 2.9 (0.9-1.1); Prothrombin Time 29.1 Seconds (9.0-12.0)
[2021-08-19 06:31] LABS: BUN Creatinine Ratio 24.4 (10-20); Calcium 9.1 mg/dl (8.5-10.1); Creatinine Clr Calc Pharmacy 12.7 ml/min; Est GFR (African American) 13.3 ml/min; Est GFR (Non-African American) 11.5 ml/min
[2021-08-19 06:43] LABS: Albumin Level 3.6 gm/dl (3.4-5.0); Bilirubin,Total 1.8 mg/dl (0.2-1.0); Magnesium 2.4 mg/dl (1.7-2.4); Total Protein 5.8 gm/dl (6.0-8.3)
[2021-08-19] MEDS: FORMOTEROL 20 MCG/2 ML VIAL NEB SCH ×2 (07:18→19:38)
[2021-08-19] MEDS: AZELASTINE HCL 0.1% NASAL 200 SPRAYS/27,400 MCG BTL NAE SCH ×2 (08:12→20:15)
[2021-08-19] MEDS: FLUTICASONE PROPIONATE NA SPR 16 GM BTL NAE SCH (08:13)
[2021-08-19] MEDS: ASPIRIN 81 MG ECTAB PO SCH (08:15)
[2021-08-19] MEDS: METOPROLOL SUCC 25MG EXT REL TAB PO SCH ×2 (08:15→20:16)
[2021-08-19] MEDS: CYANOCOBALAMIN (B-12) 500 MCG TABLET PO SCH (08:16)
[2021-08-19] MEDS: CHOLECALCIFEROL 1,000 UNITS 25 MCG TAB PO SCH (08:16)
--- NOTE | 2021-08-19 08:17 | Cardiology Progress Note ---
Date of Service August 19, 2021 Assessment & Plan (1) SOB (shortness of breath): (2) Cough: (3) Aortic stenosis, moderate: (4) Cardiorenal syndrome with renal failure: (5) Chronic heart failure with reduced ejection fraction and diastolic dysfunction: (6) CKD (chronic kidney disease) stage 4, GFR 15-29 ml/min: (7) LBBB (left bundle branch block): (8) CLL (chronic lymphocytic leukemia): (9) HTN (hypertension): (10) HAWA (obstructive sleep apnea): (11) Tobacco use disorder: (12) Embolism, arterial, leg, left: (13) Ventricular tachycardia: (14) Ischemic cardiomyopathy: (15) Elevated transaminase level: (16) Anemia due to chronic disease treated with erythropoietin: (17) Bronchitis: (18) Anemia in CKD (chronic kidney disease): (19) Pneumonia: Plan: Patient with evidence of acute on chronic respiratory failure secondary to pneumonia and CHF exacerbation. Significantly elevated transaminases, possibly due to hepatic congestion and Worsening renal function also noted during admission. Continue to hold amiodarone and atorvastatin. Likely resume as LFT's improve. Liver US without acute findings. He has no abdominal pain as well. Appreciate GI consult. Continue higher dose metoprolol 25 mg BID to aid/suppress arrhythmias while holding amiodarone. HR well controlled on monitor Better urine outputs over the last 48 hours- switched from Lasix to torsemide by nephro. Patient appears euvolemic today. Creatinine remains elevated above prior baseline- nephro noting that it will take a while for his renal function to improve given his underlying history. Monitor I+O's Low sodium diet 1500 ml fluid restriction Appreciate nephrology guidance on diuretics. No indication for dialysis at this time. Continue antibiotics per hospitalist/pulm for pneumonia. Agree with CXR Case discussed with Dr. Lemus. Will follow. Admission and Anticipated Discharge Date Admission Date: August 14, 2021 Supervising Physician Co-Signing Physician Notes I seen the patient and examined him. I reviewed the medical record. Discussed the case with the nurse practitioner. I agree with the plan as outlined above. Subjective Chart and telemetry reviewed. Metoprolol increased to 25 mg BID while amiodarone is being held. Renal function stable, but potassium low at 3.0. AST/ALT improving. Upon entrance into the room patient sleeping in bed, but wakes easily. Patient alert and oriented, but appears very weak. Nephrology also at bedside, transiti oned from Lasix to Demadex today. Volumes status seems to be well managed, ongoing shortness of breath with course lung sounds throughout. CXR orders in by hospitalist. No chest pain. No palpitations, dizziness, or syncope. Tele: Paced 80s. I&O: -1.8L Weight: 77.4kg >> 73.1kg Review of Systems Review of Systems: All systems reviewed & are unremarkable except as noted in HPI & below Physical Exam Physical Exam: General: Awake and moaning. Not responding to direct questioning HEENT: Normocephalic, atraumatic. Pupils equal, round and reactive to light and accommodation. Extraocular muscles are intact. Anicteric sclera. Moist mucous membranes. Neck: No JVD. No bruit. Cardiovascular: Regular. Positive S-4. Normal S-1 and S-2. No S-3. 3/6 mid to late systolic ejection murmur, greatest at the right sternal border, second intercostal space with radiation to the bilateral carotids. No rubs. Pulmonary: Course lung sounds, +Wheezing BL Abdomen: Bowel sounds x 4, soft. No rebound, guarding or tenderness. No organomegaly. Extremities: No clubbing, cyanosis or edema. +2 pedal pulses bilaterally. Skin: Warm and dry. Results & Data ([facility]) Vital Signs (Past 12 Hours) Vital Signs Temp Pulse Pulse Pulse Resp BP Pulse Ox 08/19/21 07:33 36.3 C L 92 H 19 92/55 L 96 08/19/21 07:19 87 18 91 08/19/21 04:19 36.6 C 88 18 124/67 100 08/19/21 03:08 87 22 99 08/18/21 23:02 87 18 93 08/18/21 22:48 36.6 C 89 18 98/61 L 90 08/18/21 21:00 90 88/53 L Laboratory Results 08/19/21 08/19/21 Range/Units 05:40 05:40 PT 29.1 H (9.0-12.0) Seconds INR 2.9 H (0.9-1.1) Sodium 140 (136-145) mmol/L Potassium 3.0 L (3.5-5.1) mmol/L Chloride 100 (98-107) mmol/L Carbon Dioxide 24 (21-32) mmol/L Anion Gap 16 H (3-11) BUN 110 H (6-23) mg/dl Creatinine 4.50 H D (0.6-1.4) mg/dl Est Cr Clr Drug Dosing 12.7 ml/min Est GFR ( Amer) 13.3 ml/min Est GFR (Non-Af Amer) 11.5 ml/min BUN/Creatinine Ratio 24.4 H (10-20) Glucose 112 H (70-99(Fasting)) mg/dl Calcium 9.1 (8.5-10.1) mg/dl Magnesium 2.4 (1.7-2.4) mg/dl Total Bilirubin 1.8 H (0.2-1.0) mg/dl Direct Bilirubin 1.0 H (0-0.2) mg/dl AST 217 H (13-39) U/L ALT 591 H (7-52) U/L Alkaline Phosphatase 95 (34-104) U/L Total Protein 5.8 L (6.0-8.3) gm/dl Albumin 3.6 (3.4-5.0) gm/dl (1) Pneumonia Laterality: right Lung location: lower lobe of lung Pneumonia type: due to unspecified organism Qualified Code(s): J18.9 - Pneumonia, unspecified organism
--- NOTE | 2021-08-19 08:41 | Pulmonology Progress Note ---
Date of Service August 19, 2021 Assessment & Plan (1) Pneumonia: Laterality: right Lung location: lower lobe of lung Pneumonia type: due to unspecified organism Qualified Code(s): J18.9 - Pneumonia, unspecified organism (2) Chronic heart failure with reduced ejection fraction and diastolic dysfunction: (3) Aortic stenosis, moderate: (4) SOB (shortness of breath): (5) Hypoxemia: Plan: Impression: 81-year-old male with a multiplicity of medical issues admitted with cough shortness of breath and hypoxemia. I suspect that his complaints are multifactorial. He is diuresing. His creatinine is stabilized. Liver function tests are improved. His coagulopathy continues to trend down. He is now on room air but slightly more encephalopathic Recommendations: 1. Probable pneumonia: Patient is completed a course of antibiotics. He is afebrile. His white count is normal. Follow-up chest imaging in 2 to 4 weeks in the outpatient setting is recommended. 2. Hypoxemic respiratory failure: Continue to wean oxygen as tolerated. 3. Management the patient's other medical issues is deferred to the primary admitting service. 4. Wheezing: Unclear if the patient carries a diagnosis of COPD. PFTs are not available. He appears better on duo nebs and Perforomist and would continue for now. Consideration for outpatient PFTs might be appropriate when the patient is stable. Patient appears stable from a pulmonary perspective at this time. We will follow peripherally. Please call if more urgent issues. Admission and Anticipated Discharge Date Admission Date: August 14, 2021 Subjective Patient seen and examined. He states he is not really sure how he feels. He appears to be breathing comfortably. He is less rhonchorous. He denies any cough or sputum production. Review of Systems Review of Systems: All systems reviewed & are unremarkable except as noted in Subjective Physical Exam Constitutional: WD/WN, vitals as above Neck: trachea midline, no thyromegaly Respiratory: + tachypneic; no respiratory distress and no labored breathing Auscultation: + crackles, + rhonchi and + wheezes Cardiovascular: RRR, no murmur, no edema Gastrointestinal (Abdomen): normal bowel sounds, soft, nontender, no hepatosplenomegaly Musculoskeletal: Extremities: extremities normal to inspection Skin: no rashes, warm and dry Lymphatic: no cervical lymphadenopathy Results & Data Results & Data ([facility]) Vital Signs (Past 12 Hours) Vital Signs Temp Pulse Pulse Pulse Resp BP Pulse Ox 08/19/21 07:33 36.3 C L 92 H 19 92/55 L 96 08/19/21 07:19 87 18 91 08/19/21 04:19 36.6 C 88 18 124/67 100 08/19/21 03:08 87 22 99 08/18/21 23:02 87 18 93 08/18/21 22:48 36.6 C 89 18 98/61 L 90 08/18/21 21:00 90 88/53 L Laboratory Results 08/18/21 07:03 08/19/21 05:40 Diagnostic Findings No new imaging PG Care Time/CCT Total # of Minutes Spent Total Time Spent with Patient: Total time spent is greater than 50% in coordination of care (as documented) at patient's floor/unit and/or counseling patient: Coding Level of Care Code 10837 Subseq Hosp Care Lvl 2 Diagnoses Pneumonia J18.9 Laterality: right Lung location: lower lobe of lung Pneumonia type: due to unspecified organism Chronic heart failure with reduced ejection fraction and diastolic dysfunction I50.42 Aortic stenosis, moderate I35.0 SOB (shortness of breath) R06.02 Hypoxemia R09.02
--- NOTE | 2021-08-19 09:14 | Nephrology Progress Note ---
Date of Service August 19, 2021 Assessment & Plan Admission and Anticipated Discharge Date Admission Date: August 14, 2021 Subjective Assessment & Plan Subjective A/p---- 1 ARF on CKD 4--Sec to Likely ATN in the setting of resp failure. Fluid overload/Pulm congestion and pneumonia. made 1600 ml urine yesterday on lasix 80 bid Renal function does not seem to change much for many days now--fluctuates a bit. He was equivocal when I asked him about dialysis. But does not need Dialysis today. Renal recovery even if it happens will not be quick given his comorbid Dz cleo Low LVEF. Also he is a poor candidate for alf dialysis. Rec: 1 Change to Demadex 40 bid. Stop iv lasix 2 CXR today 3 K.cl 40 now and then make 20 tid. but wont need this high dose for long S---Looking weaker sicker. Not interactive today. Normally very talkative. Feels SOB. Making urine and no edema now Physical Exam Physical Exam: General: Awake and moaning. Not responding to direct questioning HEENT: Normocephalic, atraumatic. Neck: No JVD. No bruit. Cardiovascular: Regular. Positive S-4. Normal S-1 and S-2. No S-3. 3/6 mid to late systolic ejection murmur, greatest at the right sternal border, second intercostal space with radiation to the bilateral carotids. No rubs. Pulmonary: b/l rhonchi. Abdomen: Bowel sounds x 4, soft. No rebound, guarding or tenderness. No organomegaly. Extremities: No edema. Skin: Warm and dry. Results & Data ([facility]) Vital Signs (Past 12 Hours) Vital Signs Temp Pulse Pulse Pulse Resp BP Pulse Ox 08/19/21 07:33 36.3 C L 92 H 19 92/55 L 96 08/19/21 07:19 87 18 91 08/19/21 04:19 36.6 C 88 18 124/67 100 08/19/21 03:08 87 22 99 08/18/21 23:02 87 18 93 08/18/21 22:48 36.6 C 89 18 98/61 L 90
[2021-08-19] MEDS ORDERED: POTASSIUM CHLORIDE CRTAB 20 MEQ TABCR PO STA ×2 (09:21)
[2021-08-19] MEDS: PYRIDOXINE HCL 50 MG TAB PO SCH ×2 (09:41→20:15)
--- NOTE | 2021-08-19 09:53 | XRay Report ---
XR chest 1V portable CLINICAL HISTORY: Follow-up congestive heart failure and pleural effusion. COMPARISON STUDY: 08/16/2021 TECHNIQUE: 1 view of the chest FINDINGS: Single frontal view of the chest demonstrates the heart size to be mildly enlarged with permanent car diac pacer again seen. Compared to previous examination, diffuse interstitial and alveolar edema are again seen characteristic of congestive heart failure. There is increasing right pleural effusion. No definite left pleural effusion is identified on this study. No confluent alveolar opacities are iden tified. There is no acute osseous pathology. IMPRESSION: 1. Compared to the previous examination, there is again diffuse interstitial and alveolar edema geraldo cteristic of congestive heart failure. 2. Increasing right pleural effusion. ACT 112: Negative or not required by law. Electronically signed by: Mohan Rueda M.D. 08/19/2021 9:51 AM
[2021-08-19] MEDS: TORSEMIDE 10 MG TAB PO SCH ×2 (11:21→20:16)
[2021-08-19] MEDS: POTASSIUM CHLORIDE CRTAB 20 MEQ TABCR PO SCH ×2 (13:53→20:16)
[2021-08-19] MEDS ORDERED: WARFARIN SOD 1 MG TAB PO SCH (16:00)
--- NOTE | 2021-08-19 16:39 | Hospitalist Progress Note ---
Date of Service August 19, 2021 Assessment & Plan (1) Acute and chronic respiratory failure with hypoxia: Plan: Patient is an 81 yr male with H/O HTN, chronic HFrEF, EF 20-25% on echo 2020, s/p ICD, ventricular tachycardia, LBBB, moderate aortic stenosis, CKD IV, arterial thrombosis, chronic anemia, pleural effusions, lymphoma treated with chemotherapy, myelodysplastic syndrome and other problems listed below presented to ER with complaint of shortness of breath and productive cough, rhinorrhea x 1 day. Recent h/o hospitalization for acute on chronic HFrEF, pleural effusions s/p bilateral thoracentesis, ICD placement on 06/15/2021 Acute on chronic respiratory failure with hypoxia secondary to bilateral pneumonia Acute Kidney Injury on CKD IV, likely ATN Acute on chronic CHF, systolic and Diastolic H/O Ischemic cardiomyopathy, EF 25 to 30%, S/P AICD placement --CXR: Possible tiny bilateral pleural effusions, decreased from prior exam. Previously noted airspace opacities have resolved. There is mild pulmonary edema. --ECHO 05/15/2021: EF: 25-30%, large sized apical, septal, anterior septal, anterior and lateral wall motion abnormality with hypokinesis to akinesis of the segments. Mild diffuse right ventricular hypokinesis, moderate mitral regurgitation, mild to moderate tricuspid regurgitation, mild aortic valve stenosis, severe pulmonary hypertension, grade 2 diastolic dysfunction --Sputum culture negative --Blood cultures negative to date Empirically received cefepime and doxycycline for 2 days and then cefuroxime and doxycycline Day #3--Completed course Appreciate pulmonology recommendations Needs repeat chest x-ray in 4 to 6 weeks Continue scheduled nebs, Perforomist Continue IV Lasix 80 mg BID>>> transition to Demadex 40 mg twice daily. Appreciate Nephrology, Cardiology Input Continue fluid restriction Elevated LFTs Bilirubinemia AST/ALT significantly increased to 2000s/1000s Normal alkaline phosphatase --Liver US: Limited examination due to overlying bowel gas. Increased echogenicity of the liver. Cholelithiasis with no ultrasound evidence for acute cholecystitis.Increase fluid over the dome of the liver characteristic of increased ascites. --Portal Vein USD:No portal vein thrombosis. --Hepatitis Panel: Negative Elevated LFTs likely etiology to be congestive hepatopathy, less likely DILI LFTs slowly improving Monitor INR Amiodarone held Avoid all hepatotoxic agents as able Appreciate GI input Paroxysmal atrial fibrillation Current paced rhythm INR supratherapeutic at 6.6 on presentation Continue metoprolol 25 mg twice daily Appreciate cardiology input Monitor INR: 3.5>2.9 Resume Coumadin Pleural effusion: H/O B/L pleural effusions requiring thoracentesis in the recent past Continue diuresis as above Anemia of CKD (chronic kidney disease): Hgb: 8.7 Monitor H/O Lymphoma H/O Myelodysplastic syndrome As per records DVT Px: INR supratherapeutic Code Status Full code Disposition Lives at home with his son PT/OT prior to discharge Admission and Anticipated Discharge Date Admission Date: August 14, 2021 Subjective Patient is seen and examined at bedside Reports having a cough, dyspnea Also states having anxiety Reports poor appetite No other complaints Denies any chest pain, dizziness, nausea, abdominal pain Review of Systems Review of Systems: All systems reviewed & are unremarkable except as noted in Subjective Physical Exam Physical Exam: Physical Exam: Vitals signs as noted above General Appearance:Moderately built and nourished, ill appearing, no apparent distress Head: normocephalic, Atraumatic Eyes: normal inspection, EOMI Neck: supple, Trachea midline Respiratory/Chest: Coarse breath sounds, scattered crackles, wheezes, rhonchi Cardiovascular: S1, S2, + murmur Abdomen/GI:Soft, Non tender, Bowel sounds present Extremities/Musculoskeletal:normal inspection, no edema Neurologic/Psych:AAOX3, grossly no focal neurological deficits Skin: normal color, warm Results & Data Results & Data ([facility]) Vital Signs (Past 12 Hours) Vital Signs Temp Pulse Pulse Resp BP Pulse Ox 08/19/21 15:59 36.5 C 85 20 138/64 96 08/19/21 15:39 85 18 98 08/19/21 11:18 36.2 C L 96 H 20 117/73 92 08/19/21 11:11 87 18 100 08/19/21 11:01 89 08/19/21 07:33 36.3 C L 92 H 19 92/55 L 96 08/19/21 07:19 87 18 91 Laboratory Results [facility] 08/19/21 05:40 Sodium 140 Potassium 3.0 L Chloride 100 Carbon Dioxide 24 BUN 110 H Creatinine 4.50 H D Glucose 112 H Calcium 9.1 Liver Function 08/19/21 Range/Units 05:40 Total Bilirubin 1.8 H (0.2-1.0) mg/dl Direct Bilirubin 1.0 H (0-0.2) mg/dl AST 217 H (13-39) U/L ALT 591 H (7-52) U/L Alkaline Phosphatase 95 (34-104) U/L Albumin 3.6 (3.4-5.0) gm/dl
[2021-08-19] MEDS ORDERED: POTASSIUM CHLORIDE 10 MEQ TABCR PO SCH (21:00)
[2021-08-20] MEDS: LEVOTHYROXINE SODIUM 75 MCG TABLET PO SCH (06:13)
[2021-08-20] MEDS: ALBUT/IPRATROP 3MG/0.5MG NEB 3 ML VIAL NEB SCH ×4 (06:59→19:41)
[2021-08-20] MEDS: FORMOTEROL 20 MCG/2 ML VIAL NEB SCH ×3 (06:59→23:12)
[2021-08-20 07:09] LABS: Basophils # (auto) 0.01 K/uL (0-0.2); Basophils % (auto) 0.1 %; Eosinophils # (auto) 0.04 K/uL (0-0.5); Eosinophils % (auto) 0.4 %; Hematocrit (blood only) 27.3 % (42-52); Hemoglobin 9.1 g/dL (14.0-18.0); Immature Granulocytes # (auto) 0.06 K/uL (0.00-0.02); Immature Granulocytes % (auto) 0.7 %; Lymphocytes # (auto) 2.29 K/uL (1.2-3.4); Lymphocytes % (auto) 24.9 %; Mean Corpuscular Hemoglobin 39.2 pg (25-34); Mean Corpuscular Hgb Conc 33.3 g/dL (32-36); Mean Corpuscular Volume 117.7 fL (80-100); Mean Platelet Volume 10.3 fL (7.4-10.4); Monocytes # (auto) 0.79 K/uL (0.11-0.59); Monocytes % (auto) 8.6 %; Neutrophils # (auto) 5.99 K/uL (1.4-6.5); Neutrophils % (auto) 65.3 %; Nucleated RBC # (auto) 0.15 K/uL (0-0); Nucleated RBC % (auto) 1.7 %; Platelet Count 212 K/uL (130-400); RDW Coefficient of Variation 21.8 % (11.5-14.5); RDW Standard Deviation 92.3 fL (36.4-46.3); Red Blood Count 2.32 M/uL (4.7-6.1); White Blood Count 9.18 K/uL (4.8-10.8)
[2021-08-20 07:15] LABS: INR 2.3 (0.9-1.1); Prothrombin Time 23.1 Seconds (9.0-12.0)
--- NOTE | 2021-08-20 07:24 | Cardiology Progress Note ---
Date of Service August 20, 2021 Assessment & Plan (1) SOB (shortness of breath): (2) Cough: (3) Aortic stenosis, moderate: (4) Cardiorenal syndrome with renal failure: (5) Chronic heart failure with reduced ejection fraction and diastolic dysfunction: (6) CKD (chronic kidney disease) stage 4, GFR 15-29 ml/min: (7) LBBB (left bundle branch block): (8) CLL (chronic lymphocytic leukemia): (9) HTN (hypertension): (10) HAWA (obstructive sleep apnea): (11) Tobacco use disorder: (12) Embolism, arterial, leg, left: (13) Ventricular tachycardia: (14) Ischemic cardiomyopathy: (15) Elevated transaminase level: (16) Anemia due to chronic disease treated with erythropoietin: (17) Bronchitis: (18) Anemia in CKD (chronic kidney disease): (19) Pneumonia: Plan: Patient with evidence of acute on chronic respiratory failure secondary to pneumonia and CHF exacerbation. Significantly elevated transaminases, possibly due to hepatic congestion and Worsening renal function also noted during admission. Continue to hold amiodarone and atorvastatin. Likely resume as LFT's improve. Liver US without acute findings. He has no abdominal pain as well. Appreciate GI consult. Continue higher dose metoprolol 25 mg BID to aid/suppress arrhythmias while holding amiodarone. HR well controlled on monitor Better urine outputs over the last 48 hours- switched from Lasix to torsemide by nephro. Patient appears euvolemic today. Creatinine remains elevated above prior baseline- nephro noting that it will take a while for his renal function to improve given his underlying history. Monitor I+O's Low sodium diet 1500 ml fluid restriction Appreciate nephrology guidance on diuretics. No indication for dialysis at this time. Continue antibiotics per hospitalist/pulm for pneumonia. Case discussed with Dr. Lemus. Will follow. Admission and Anticipated Discharge Date Admission Date: August 14, 2021 Supervising Physician Co-Signing Physician Notes I have seen and examined the patient. I have reviewed the medical record. Discussed the case with the nurse practitioner. From a cardiac standpoint he is clinically stable. He was alert and talkative. There has been some concern regarding his lethargy. He does have some tremors in his BUN is quite high. I wonder if his lethargy is a result of uremia. Subjective Chart and telemetry reviewed. Metoprolol increased to 25 mg BID while amiodarone is being held. Renal function stable, but potassium low at 3.0. AST/ALT improving. CXR from yesterday showed: Compared to the previous examination, there is again diffuse interstitial and alveolar edema characteristic of congestive heart failure. Increasing right pleural effusion. Upon entrance into the room patient was sitting up eating breakfast. Much more awake and alert today. Volume status seems improved, noting less shortness of breath. No chest pain. No palpitations, dizziness, or syncope. Tele: Paced 80s-90s I&O: -3.5L Weight: 77.4kg >> 73.1kg>>72.9 kg Review of Systems Review of Systems: All systems reviewed & are unremarkable except as noted in HPI & below Physical Exam Physical Exam: General: Awake and moaning. Not responding to direct questioning HEENT: Normocephalic, atraumatic. Pupils equal, round and reactive to light and accommodation. Extraocular muscles are intact. Anicteric sclera. Moist mucous membranes. Neck: No JVD. No bruit. Cardiovascular: Regular. Positive S-4. Normal S-1 and S-2. No S-3. 3/6 mid to late systolic ejection murmur, greatest at the right sternal border, second intercostal space with radiation to the bilateral carotids. No rubs. Pulmonary: Course lung sounds, +Wheezing BL Abdomen: Bowel sounds x 4, soft. No rebound, guarding or tenderness. No organomegaly. Extremities: No clubbing, cyanosis or edema. +2 pedal pulses bilaterally. Skin: Warm and dry. Results & Data ([facility]) Vital Signs (Past 12 Hours) Vital Signs Temp Pulse Pulse Pulse Resp BP Pulse Ox 08/20/21 07:01 88 18 94 08/20/21 03:48 36.8 C 92 H 15 93/51 L 94 08/19/21 22:54 87 24 95 08/19/21 22:34 37.1 C 87 16 91/57 L 95 08/19/21 19:43 112 H 115/78 08/19/21 19:39 67 15 94 Laboratory Results 08/20/21 08/20/21 08/20/21 Range/Units 06:46 06:46 06:46 WBC 9.18 (4.8-10.8) K/uL RBC 2.32 L (4.7-6.1) M/uL Hgb 9.1 L (14.0-18.0) g/dL Hct 27.3 L (42-52) % MCV 117.7 H (80-100) fL MCH 39.2 H (25-34) pg MCHC 33.3 (32-36) g/dL RDW Std Deviation 92.3 H (36.4-46.3) fL RDW Coeff of Geovanni 21.8 H (11.5-14.5) % Plt Count 212 (130-400) K/uL MPV 10.3 (7.4-10.4) fL Immature Gran % (Auto) 0.7 % Neut % (Auto) 65.3 % Lymph % (Auto) 24.9 % Oliver % (Auto) 8.6 % Eos % (Auto) 0.4 % Baso % (Auto) 0.1 % Neut # (Auto) 5.99 (1.4-6.5) K/uL Lymph # (Auto) 2.29 (1.2-3.4) K/uL Oliver # (Auto) 0.79 H (0.11-0.59) K/uL Eos # (Auto) 0.04 (0-0.5) K/uL Baso # (Auto) 0.01 (0-0.2) K/uL Immature Gran # (Auto) 0.06 H (0.00-0.02) K/uL Absolute Nucleated RBC 0.15 H (0-0) K/uL Nucleated RBC % (auto) 1.7 % Neutrophils % (Manual) 70.5 % Lymphocytes % (Manual) 21.7 % Monocytes % (Manual) 4.3 % Metamyelocytes % (Man) 0.9 % Myelocytes % (Man) 2.6 % Neutrophils # (Manual) 6.47 (1.4-6.5) K/uL Total Absolute Neuts 6.47 (1.4-6.5) K/uL Lymphocytes # (Manual) 1.99 (1.2-3.4) K/uL Total Abs Lymphocytes 1.99 (1.2-3.4) K/uL Monocytes # (Manual) 0.39 (0.11-0.59) K/uL Metamyelocytes # (Man) 0.08 H (0-0) K/uL Myelocytes # (Manual) 0.24 H (0-0) K/uL Polychromasia 1+ Macrocytosis Present Echinocytes 1+ PT 23.1 H (9.0-12.0) Seconds INR 2.3 H (0.9-1.1) Sodium 142 (136-145) mmol/L Potassium 3.0 L (3.5-5.1) mmol/L Chloride 101 (98-107) mmol/L Carbon Dioxide 25 (21-32) mmol/L Anion Gap 16 H (3-11) BUN 113 H (6-23) mg/dl Creatinine 4.32 H (0.6-1.4) mg/dl Est Cr Clr Drug Dosing 13.2 ml/min Est GFR ( Amer) 14.0 ml/min Est GFR (Non-Af Amer) 12.1 ml/min BUN/Creatinine Ratio 26.2 H (10-20) Glucose 110 H (70-99(Fasting)) mg/dl Calcium 8.6 (8.5-10.1) mg/dl Magnesium 2.5 H (1.7-2.4) mg/dl Total Bilirubin 2.0 H (0.2-1.0) mg/dl AST 138 H (13-39) U/L ALT 468 H (7-52) U/L Alkaline Phosphatase 99 (34-104) U/L Total Protein 5.7 L (6.0-8.3) gm/dl Albumin 3.6 (3.4-5.0) gm/dl Globulin 2.1 L (2.5-4.0) gm/dl Albumin/Globulin Ratio 1.7 (0.9-2) (1) Pneumonia Laterality: right Lung location: lower lobe of lung Pneumonia type: due to unspecified organism Qualified Code(s): J18.9 - Pneumonia, unspecified organism
[2021-08-20 07:35] LABS: Albumin Globulin Ratio 1.7 (0.9-2); Albumin Level 3.6 gm/dl (3.4-5.0); BUN Creatinine Ratio 26.2 (10-20); Calcium 8.6 mg/dl (8.5-10.1); Creatinine Clr Calc Pharmacy 13.2 ml/min; Est GFR (Non-African American) 12.1 ml/min; Globulin 2.1 gm/dl (2.5-4.0); Magnesium 2.5 mg/dl (1.7-2.4); Total Protein 5.7 gm/dl (6.0-8.3)
[2021-08-20 07:38] LABS: ALC (manual) 1.99 K/uL (1.2-3.4); ANC (manual) 6.47 K/uL (1.4-6.5); Echinocytes 1+; Lymphocytes # (manual) 1.99 K/uL (1.2-3.4); Lymphocytes % (manual) 21.7 %; Macrocytosis Present; Metamyelocytes # (manual) 0.08 K/uL (0-0); Metamyelocytes % (manual) 0.9 %; Monocytes # (manual) 0.39 K/uL (0.11-0.59); Monocytes % (manual) 4.3 %; Myelocytes # (manual) 0.24 K/uL (0-0); Myelocytes % (manual) 2.6 %; Neutrophils # (manual) 6.47 K/uL (1.4-6.5); Neutrophils % (manual) 70.5 %; Polychromasia 1+
--- NOTE | 2021-08-20 08:22 | Pulmonology Progress Note ---
Date of Service August 20, 2021 Assessment & Plan (1) Pneumonia: Laterality: right Lung location: lower lobe of lung Pneumonia type: due to unspecified organism Qualified Code(s): J18.9 - Pneumonia, unspecified organism (2) Chronic heart failure with reduced ejection fraction and diastolic dysfunction: (3) Aortic stenosis, moderate: (4) SOB (shortness of breath): (5) Hypoxemia: Plan: Impression: 81-year-old male with a multiplicity of medical issues admitted with cough shortness of breath and hypoxemia. I suspect that his complaints are multifactorial. He is being followed by cardiology nephrology and GI. Recommendations: 1. Probable pneumonia: Completed antibiotics. Chest x-ray shows resolution of the previously noted midlung zone airspace opacity. 2. Hypoxemic respiratory failure: Continue to wean oxygen as tolerated. 3. Right-sided pleural effusion: The patient is undergone multiple diagnostic and therapeutic thoracentesis in the past. As he is asymptomatic from a pulmonary standpoint currently, would not recommend thoracentesis at this time. If he were to develop respiratory symptoms, could consider invasive pleural procedures at that time but ideally would like his INR less than 1.5. 4. Wheezing: Unclear if the patient carries a diagnosis of COPD. PFTs are not available. Continue duo nebs and Perforomist. Consideration for outpatient PFTs might be appropriate when the patient is stable. Patient appears stable from a pulmonary perspective at this time. Unclear endpoint. Agree with nephrology that the patient is not a great candidate for long-term renal replacement therapy. His cardiac issues continue to complicate issues with reaccumulation of fluid. May be reasonable to examine goals of therapy in this patient. If dialysis is not felt to be an option by nephrology, consideration for more palliative measures might be appropriate. Pulmonary will sign off at this point in time. Feel free to contact us should he develop additional or progressive respiratory issues Admission and Anticipated Discharge Date Admission Date: August 14, 2021 Subjective Patient seen and examined. He states he slept poorly. He feels like he is breathing okay and denies any shortness of breath. No cough or sputum production. No chest pain or palpitations. Review of Systems Review of Systems: All systems reviewed & are unremarkable except as noted in Subjective Physical Exam Constitutional: WD/WN, vitals as above Neck: trachea midline, no thyromegaly Respiratory: no respiratory distress and no labored breathing Auscultation: + crackles, + rhonchi and + wheezes Cardiovascular: RRR, no murmur, no edema Gastrointestinal (Abdomen): normal bowel sounds, soft, nontender, no hepatosplenomegaly Musculoskeletal: Extremities: extremities normal to inspection Skin: no rashes, warm and dry Lymphatic: no cervical lymphadenopathy Results & Data Results & Data ([facility]) Vital Signs (Past 12 Hours) Vital Signs Temp Pulse Pulse Pulse Resp BP Pulse Ox 08/20/21 07:51 36.5 C 90 20 103/70 94 08/20/21 07:01 88 18 94 08/20/21 03:48 36.8 C 92 H 15 93/51 L 94 08/19/21 22:54 87 24 95 08/19/21 22:34 37.1 C 87 16 91/57 L 95 Laboratory Results 08/20/21 06:46 08/20/21 06:46 Diagnostic Findings Chest x-ray was reviewed. The previously noted midlung zone opacity has improved on the right. There is a right pleural effusion identified which appears slightly increased compared to prior. PG Care Time/CCT Total # of Minutes Spent Total Time Spent with Patient: Total time spent is greater than 50% in coordination of care (as documented) at patient's floor/unit and/or counseling patient: Coding Level of Care Code 84077 Subseq Hosp Care Lvl 2 Diagnoses Pneumonia J18.9 Laterality: right Lung location: lower lobe of lung Pneumonia type: due to unspecified organism Chronic heart failure with reduced ejection fraction and diastolic dysfunction I50.42 Aortic stenosis, moderate I35.0 SOB (shortness of breath) R06.02 Hypoxemia R09.02
[2021-08-20] MEDS: TORSEMIDE 10 MG TAB PO SCH ×2 (08:23→15:55)
[2021-08-20] MEDS: PYRIDOXINE HCL 50 MG TAB PO SCH ×2 (08:24→22:09)
[2021-08-20] MEDS: CHOLECALCIFEROL 1,000 UNITS 25 MCG TAB PO SCH (08:25)
[2021-08-20] MEDS: ASPIRIN 81 MG ECTAB PO SCH (08:25)
[2021-08-20] MEDS: METOPROLOL SUCC 25MG EXT REL TAB PO SCH ×2 (08:25→22:08)
[2021-08-20] MEDS: POTASSIUM CHLORIDE CRTAB 20 MEQ TABCR PO SCH ×3 (08:26→22:09)
[2021-08-20] MEDS: CYANOCOBALAMIN (B-12) 500 MCG TABLET PO SCH (08:27)
[2021-08-20] MEDS: FLUTICASONE PROPIONATE NA SPR 16 GM BTL NAE SCH (08:28)
[2021-08-20] MEDS: AZELASTINE HCL 0.1% NASAL 200 SPRAYS/27,400 MCG BTL NAE SCH ×2 (08:28→22:08)
--- NOTE | 2021-08-20 09:50 | Nephrology Progress Note ---
Date of Service August 20, 2021 Assessment & Plan Admission and Anticipated Discharge Date Admission Date: August 14, 2021 Subjective Subjective A/p---- 1 ARF on CKD 4--Sec to Likely ATN in the setting of resp failure. Fluid overload/Pulm congestion and pneumonia. made 2200 ml urine yesterday on Demadex 40 bid Renal function does not seem to change much for many days now--fluctuates a bit. He was equivocal when I asked him about dialysis. But does not need Dialysis today. Renal recovery even if it happens will not be quick given his comorbid Dz cleo Low LVEF. Also he is a poor candidate for intermission coordinator dialysis. Rec: 1 Lower Demadex 20 bid--Not eating much. 2 CXR today 3 K.cl 40 now and continue 20 tid. but wont need this high dose for long 4 Consider palliative med consult to have goal of therapy. 5 No dialysis today--no fluid overload and Renal numbers holding stable. S---Looking weaker sicker. Less interactive today. Normally very talkative. Feels SOB. Making urine and no edema now Physical Exam Physical Exam: General: Awake and moaning. Not responding to direct questioning HEENT: Normocephalic, atraumatic. Neck: No JVD. No bruit. Cardiovascular: Regular. Positive S-4. Normal S-1 and S-2. No S-3. 3/6 mid to late systolic ejection murmur, greatest at the right sternal border, second intercostal space with radiation to the bilateral carotids. No rubs. Pulmonary: b/l rhonchi. Abdomen: Bowel sounds x 4, soft. No rebound, guarding or tenderness. No organomegaly. Extremities: No edema. Skin: Warm and dry. Results & Data ([facility]) Vital Signs (Past 12 Hours) Vital Signs Temp Pulse Pulse Pulse Resp BP Pulse Ox 08/20/21 08:00 92 H 08/20/21 07:51 36.5 C 90 20 103/70 94 08/20/21 07:01 88 18 94 08/20/21 03:48 36.8 C 92 H 15 93/51 L 94 08/19/21 22:54 87 24 95 08/19/21 22:34 37.1 C 87 16 91/57 L 95
[2021-08-20] MEDS ORDERED: POTASSIUM CHLORIDE CRTAB 20 MEQ TABCR PO STA (12:11)
[2021-08-20] MEDS: WARFARIN SOD 2 MG TAB PO SCH (15:54)
--- NOTE | 2021-08-20 16:01 | Hospitalist Progress Note ---
Date of Service August 20, 2021 Assessment & Plan (1) Acute and chronic respiratory failure with hypoxia: Plan: Patient is an 81 yr male with H/O HTN, chronic HFrEF, EF 20-25% on echo 2020, s/p ICD, ventricular tachycardia, LBBB, moderate aortic stenosis, CKD IV, arterial thrombosis, chronic anemia, pleural effusions, lymphoma treated with chemotherapy, myelodysplastic syndrome and other problems listed below presented to ER with complaint of shortness of breath and productive cough, rhinorrhea x 1 day. Recent h/o hospitalization for acute on chronic HFrEF, pleural effusions s/p bilateral thoracentesis, ICD placement on 06/15/2021 Acute on chronic respiratory failure with hypoxia secondary to bilateral pneumonia Acute Kidney Injury on CKD IV, likely ATN Acute on chronic CHF, systolic and Diastolic H/O Ischemic cardiomyopathy, EF 25 to 30%, S/P AICD placement --CXR: Possible tiny bilateral pleural effusions, decreased from prior exam. Previously noted airspace opacities have resolved. There is mild pulmonary edema. --ECHO 05/15/2021: EF: 25-30%, large sized apical, septal, anterior septal, anterior and lateral wall motion abnormality with hypokinesis to akinesis of the segments. Mild diffuse right ventricular hypokinesis, moderate mitral regurgitation, mild to moderate tricuspid regurgitation, mild aortic valve stenosis, severe pulmonary hypertension, grade 2 diastolic dysfunction --Sputum culture negative --Blood cultures negative to date Empirically received cefepime and doxycycline for 2 days and then cefuroxime and doxycycline Day #3--Completed course Appreciate pulmonology recommendations Needs repeat chest x-ray in 4 to 6 weeks Continue scheduled nebs, Perforomist Continue IV Lasix 80 mg BID>>> transition to Demadex Appreciate Nephrology, Cardiology Input Continue fluid restriction--1500ml Demadex dose decreased to 20 mg twice daily Palliative care consulted to address goals of care Recheck CXR tomorrow Elevated LFTs Bilirubinemia AST/ALT significantly increased to 2000s/1000s Normal alkaline phosphatase --Liver US: Limited examination due to overlying bowel gas. Increased echogenicity of the liver. Cholelithiasis with no ultrasound evidence for acute cholecystitis.Increase fluid over the dome of the liver characteristic of increased ascites. --Portal Vein USD:No portal vein thrombosis. --Hepatitis Panel: Negative Elevated LFTs likely etiology to be congestive hepatopathy, less likely DILI LFTs slowly improving Monitor INR Amiodarone held Avoid all hepatotoxic agents as able Appreciate GI input Paroxysmal atrial fibrillation Current paced rhythm INR supratherapeutic at 6.6 on presentation Continue metoprolol 25 mg twice daily Appreciate cardiology input Monitor INR: 3.5>2.9>2.3 Continue Coumadin Hypokalemia Replete electrolytes as needed Pleural effusion: H/O B/L pleural effusions requiring thoracentesis in the recent past Continue diuresis as above Anemia of CKD (chronic kidney disease): Hgb: 9.1 Monitor H/O Lymphoma H/O Myelodysplastic syndrome As per records DVT Px: INR supratherapeutic Code Status Full code Disposition Lives at home with his son PT/OT prior to discharge Admission and Anticipated Discharge Date Admission Date: August 14, 2021 Subjective Patient is seen and examined at bedside " I feel Shaky" Reports generalized weakness Also has cough, dyspnea on exertion Appetite remains poor Denies any chest pain, dizziness, nausea, abdominal pain Review of Systems Review of Systems: All systems reviewed & are unremarkable except as noted in Subjective Physical Exam Physical Exam: Physical Exam: Vitals signs as noted above General Appearance:Moderately built and nourished, ill appearing, no apparent distress Head: normocephalic, Atraumatic Eyes: normal inspection, EOMI Neck: supple, Trachea midline Respiratory/Chest: Coarse breath sounds, scattered crackles Cardiovascular: S1, S2, + murmur Abdomen/GI:Soft, Non tender, Bowel sounds present Extremities/Musculoskeletal:normal inspection, no edema Neurologic/Psych:AAOX3, grossly no focal neurological deficits Skin: normal color, warm Results & Data Results & Data ([facility]) Vital Signs (Past 12 Hours) Vital Signs Temp Pulse Pulse Pulse Resp BP BP 08/20/21 15:22 68 16 08/20/21 12:03 34.8 C L 88 20 107/71 08/20/21 11:07 81 16 08/20/21 08:00 92 H 08/20/21 07:51 36.5 C 90 20 103/70 08/20/21 07:01 88 18 Pulse Ox 08/20/21 15:22 94 08/20/21 12:03 94 08/20/21 11:07 95 08/20/21 08:00 08/20/21 07:51 94 08/20/21 07:01 94 Laboratory Results Short CBC 08/20/21 Range/Units 06:46 WBC 9.18 (4.8-10.8) K/uL Hgb 9.1 L (14.0-18.0) g/dL Hct 27.3 L (42-52) % Plt Count 212 (130-400) K/uL BMP 08/20/21 06:46 Sodium 142 Potassium 3.0 L Chloride 101 Carbon Dioxide 25 BUN 113 H Creatinine 4.32 H Glucose 110 H Calcium 8.6 Liver Function 08/20/21 Range/Units 06:46 Total Bilirubin 2.0 H (0.2-1.0) mg/dl AST 138 H (13-39) U/L ALT 468 H (7-52) U/L Alkaline Phosphatase 99 (34-104) U/L Albumin 3.6 (3.4-5.0) gm/dl
[2021-08-20] MEDS: MELATONIN 3 MG TAB PO PRN (22:09)
[2021-08-21] MEDS: LEVOTHYROXINE SODIUM 75 MCG TABLET PO SCH (06:36)
[2021-08-21] MEDS: FORMOTEROL 20 MCG/2 ML VIAL NEB SCH ×3 (07:12→19:19)
[2021-08-21] MEDS: ALBUT/IPRATROP 3MG/0.5MG NEB 3 ML VIAL NEB SCH ×4 (07:12→19:14)
[2021-08-21 07:54] LABS: Prothrombin Time 20.5 Seconds (9.0-12.0)
[2021-08-21 08:01] LABS: Albumin Globulin Ratio 1.6 (0.9-2); Albumin Level 3.4 gm/dl (3.4-5.0); BUN Creatinine Ratio 29.4 (10-20); Bilirubin,Total 1.9 mg/dl (0.2-1.0); Calcium 8.3 mg/dl (8.5-10.1); Creatinine Clr Calc Pharmacy 14.2 ml/min; Est GFR (African American) 15.3 ml/min; Est GFR (Non-African American) 13.2 ml/min; Globulin 2.1 gm/dl (2.5-4.0); Magnesium 2.5 mg/dl (1.7-2.4); Potassium 2.8 mmol/L (3.5-5.1); Total Protein 5.5 gm/dl (6.0-8.3)
--- NOTE | 2021-08-21 08:17 | XRay Report ---
XR chest 1V portable HISTORY: Congestive heart failure. Shortness of breath. COMPARISON: Chest 08/19/2021. FINDINGS: Left-sided pacemaker/defibrillator is again noted. No pneumothorax. The heart remains enlar ged. There are low lung volumes. Pulmonary edema persists. Moderate right and small left pleural effu sions are again noted. Right basilar airspace opacities have slightly progressed. This may represent atelectasis from the pleural effusion. IMPRESSION: 1. Redemonstration of the moderate pulmonary edema and bilateral pleural effusions, right greater amadeo n left. 2. Right basilar densities have slightly progressed and may represent atelectasis from the pleural ef fusion. ACT 112: Negative or not required by law. Electronically signed by: Geovanni East M.D. 08/21/2021 8:15 AM
--- NOTE | 2021-08-21 08:46 | Cardiology Progress Note ---
Date of Service August 21, 2021 Assessment & Plan (1) Aortic stenosis, moderate: (2) Cardiorenal syndrome with renal failure: (3) Chronic heart failure with reduced ejection fraction and diastolic dysfunction: (4) CKD (chronic kidney disease) stage 4, GFR 15-29 ml/min: (5) LBBB (left bundle branch block): (6) CLL (chronic lymphocytic leukemia): (7) HAWA (obstructive sleep apnea): (8) Embolism, arterial, leg, left: (9) Ischemic cardiomyopathy: (10) Elevated transaminase level: (11) Anemia in CKD (chronic kidney disease): (12) PAF (paroxysmal atrial fibrillation): Plan: At this point I think it is best that we just discontinue the patient's atorvastatin and amiodarone due to elevated LFTs. His atrial fibrillation can be treated with rate control and anticoagulation. At his age, I am uncertain as to the benefit of the atorvastatin especially in light of his elevated transaminases. Admission and Anticipated Discharge Date Admission Date: August 14, 2021 Subjective The patient was little more responsive today. Review of Systems Review of Systems: Review of Systems: See HPI for pertinent positives. All other 10 point review of systems are negative. Physical Exam Physical Exam: General: no acute distress and stated age Head: normocephalic, no masses, lesions, tenderness or abnormalities Eyes: conjunctiva are pink and non-injected, sclera clear Neck: supple, no adenopathy, no bruits, normal jugular venous pulse, no hepatojugular reflux Chest: normal shape and normal respiratory effort Lungs: Bronchial lung sounds but otherwise clear. Cardiac Exam: - regular rate & rhythm, no murmurs gallops or rubs - normal S1, normal S2 Pulses: 2(+) throughout Abdomen: abdomen soft, non-tender, no abnormal masses and no hepatosplenomegaly Musculoskeletal: no gait disturbance, no joint inflammation, no deforming arthritis Extremities: no edema and no cyanosis Neuro: grossly normal exam Results & Data ([facility]) Vital Signs (Past 12 Hours) Vital Signs Temp Pulse Pulse Pulse Resp BP Pulse Ox 08/21/21 07:26 36.3 C L 63 18 111/70 92 08/21/21 07:12 64 91 08/21/21 04:23 36.3 C L 62 24 99/59 L 91 08/20/21 23:53 36.7 C 63 24 99/60 L 97 03/11/22 22:41 68 18 97 Laboratory Results Laboratory Results - last 24 hr 08/21/21 08/21/21 07:24 07:24 PT 20.5 H INR 2.0 H Sodium 142 Potassium 2.8 L Chloride 101 Carbon Dioxide 28 Anion Gap 13 H BUN 118 H Creatinine 4.02 H D Est Cr Clr Drug Dosing 14.2 Est GFR ( Amer) 15.3 Est GFR (Non-Af Amer) 13.2 BUN/Creatinine Ratio 29.4 H Glucose 119 H Calcium 8.3 L Magnesium 2.5 H Total Bilirubin 1.9 H AST 95 H ALT 358 H Alkaline Phosphatase 104 Total Protein 5.5 L Albumin 3.4 Globulin 2.1 L Albumin/Globulin Ratio 1.6 Diagnostic Findings Telemetry indicates atrial fibrillation with a ventricular paced rhythm. Medications Administered Current Inpatient Medications Acetaminophen (Acetaminophen 325 Mg Tab) 650 mg PO Q4H PRN PRN Reason: Pain or Fever Stop: 09/13/21 16:44 Last Admin: 08/14/21 22:32 Dose: 650 mg Documented by: Albuterol (Albut/Ipratrop 3mg/0.5mg Neb 3 Ml Vial) 3 ml NEB QIDR [facility]; Protocol Stop: 09/17/21 10:59 Last Admin: 08/21/21 07:12 Dose: Not Given Documented by: Aspirin (Aspirin 81 Mg Ectab) [facility] [place] Stop: 09/14/21 08:59 Last Admin: 08/20/21 08:25 Dose: 81 mg Documented by: Azelastine HCl (Azelastine Hcl 0.1% Nasal 200 Sprays/27,400 Mcg Btl) 2 sprays RAMIRO BID [facility] Stop: 09/13/21 20:59 Last Admin: 08/20/21 22:08 Dose: 2 sprays Documented by: Cyanocobalamin (Cyanocobalamin (B-12) 500 Mcg Tablet) 1,000 mcg PO QAM [facility] Stop: 09/14/21 08:59 Last Admin: 08/20/21 08:27 Dose: 1,000 mcg Documented by: Fluticasone Propionate (Fluticasone Propionate Na Spr 16 Gm Btl) 1 sprays RAMIRO DAILY [facility] Stop: 09/14/21 08:59 Last Admin: 08/20/21 08:28 Dose: 1 sprays Documented by: Formoterol Fumarate (Formoterol 20 Mcg/2 Ml Vial) 20 mcg NEB BID [facility] Stop: 09/17/21 08:59 Last Admin: 08/21/21 07:12 Dose: 20 mcg Documented by: Promethazine HCl 6.25 mg/ (Sodium Chloride) 50.25 mls @ 201 mls/hr IV Q6H PRN PRN Reason: Nausea And Vomiting Stop: 09/14/21 18:29 Last Infusion: 08/16/21 01:16 Dose: Infused Documented by: Potassium Chloride (K Lanre / Wtr) 10 meq in 100 mls @ 100 mls/hr IV Q1H [facility]; Protocol Stop: 08/21/21 10:59 Levothyroxine Sodium (Levothyroxine Sodium 75 Mcg Tablet) 75 mcg PO DAILYBB [facility] Stop: 09/14/21 06:29 Last Admin: 08/21/21 06:36 Dose: 75 mcg Documented by: Melatonin (Melatonin 3 Mg Tab) 3 mg PO HS PRN PRN Reason: Sleep Stop: 09/13/21 22:10 Last Admin: 08/20/21 22:09 Dose: 3 mg Documented by: Metoprolol Succinate (Metoprolol Succ 25mg Ext Rel Tab) 25 mg PO BID [facility] Stop: 09/16/21 20:59 Last Admin: 08/20/21 22:08 Dose: 25 mg Documented by: Polyethylene Glycol (Polyethylene (Miralax) 17 Gm Pack) 17 gm PO DAILY PRN PRN Reason: Constipation Stop: 09/13/21 16:44 Potassium Chloride (Potassium Chloride Crtab 20 Meq Tabcr) 20 meq PO TID [facility] Stop: 09/18/21 13:59 Last Admin: 08/20/21 22:09 Dose: 20 meq Documented by: Pyridoxine HCl (Pyridoxine Hcl 50 Mg Tab) 100 mg PO BID [facility] Stop: 09/13/21 20:59 Last Admin: 08/20/21 22:09 Dose: 100 mg Documented by: Torsemide (Torsemide 10 Mg Tab) 20 mg PO BID17 [facility] Stop: 09/19/21 16:59 Last Admin: 08/20/21 15:55 Dose: 20 mg Documented by: Vitamin D (Cholecalciferol 1,000 Units 25 Mcg Tab) 1,000 units PO QAM [facility] Stop: 09/14/21 08:59 Last Admin: 08/20/21 08:25 Dose: 1,000 units Documented by: Warfarin Sodium (Warfarin Sod 2 Mg Tab) 2 mg PO DAILY@1600 ABAD Stop: 09/19/21 15:59 Last Admin: 08/20/21 15:54 Dose: 2 mg Documented by:
[2021-08-21] MEDS: CYANOCOBALAMIN (B-12) 500 MCG TABLET PO SCH (09:05)
[2021-08-21] MEDS: METOPROLOL SUCC 25MG EXT REL TAB PO SCH ×2 (09:06→20:33)
[2021-08-21] MEDS: POTASSIUM CHLORIDE / WTR 10 MEQ/100 ML PLCT IV SCH ×2 (09:06→10:30)
[2021-08-21] MEDS: POTASSIUM CHLORIDE CRTAB 20 MEQ TABCR PO SCH ×3 (09:06→20:32)
[2021-08-21] MEDS: ASPIRIN 81 MG ECTAB PO SCH (09:06)
[2021-08-21] MEDS: FLUTICASONE PROPIONATE NA SPR 16 GM BTL NAE SCH (09:06)
[2021-08-21] MEDS: AZELASTINE HCL 0.1% NASAL 200 SPRAYS/27,400 MCG BTL NAE SCH ×2 (09:06→20:34)
[2021-08-21] MEDS: CHOLECALCIFEROL 1,000 UNITS 25 MCG TAB PO SCH (09:06)
[2021-08-21] MEDS: PYRIDOXINE HCL 50 MG TAB PO SCH ×2 (09:07→20:34)
[2021-08-21] MEDS: TORSEMIDE 10 MG TAB PO SCH ×2 (09:07→16:48)
[2021-08-21] MEDS ORDERED: POTASSIUM CHLORIDE CRTAB 20 MEQ TABCR PO STA (10:22)
--- NOTE | 2021-08-21 15:07 | Hospitalist Progress Note ---
Date of Service August 21, 2021 Assessment & Plan (1) Acute and chronic respiratory failure with hypoxia: Plan: Patient is an 81 yr male with H/O HTN, chronic HFrEF, EF 20-25% on echo 2020, s/p ICD, ventricular tachycardia, LBBB, moderate aortic stenosis, CKD IV, arterial thrombosis, chronic anemia, pleural effusions, lymphoma treated with chemotherapy, myelodysplastic syndrome and other problems listed below presented to ER with complaint of shortness of breath and productive cough, rhinorrhea x 1 day. Recent h/o hospitalization for acute on chronic HFrEF, pleural effusions s/p bilateral thoracentesis, ICD placement on 06/15/2021 Acute on chronic respiratory failure with hypoxia secondary to bilateral pneumonia Acute Kidney Injury on CKD IV, likely ATN Acute on chronic CHF, systolic and Diastolic H/O Ischemic cardiomyopathy, EF 25 to 30%, S/P AICD placement --CXR: Possible tiny bilateral pleural effusions, decreased from prior exam. Previously noted airspace opacities have resolved. There is mild pulmonary edema. --ECHO 05/15/2021: EF: 25-30%, large sized apical, septal, anterior septal, anterior and lateral wall motion abnormality with hypokinesis to akinesis of the segments. Mild diffuse right ventricular hypokinesis, moderate mitral regurgitation, mild to moderate tricuspid regurgitation, mild aortic valve stenosis, severe pulmonary hypertension, grade 2 diastolic dysfunction --Sputum culture negative --Blood cultures negative to date Empirically received cefepime and doxycycline for 2 days and then cefuroxime and doxycycline Day #3--Completed course Repeat CXR showed moderate pulmonary edema and bilateral pleural effusions R > L Appreciate pulmonology recommendations Needs repeat chest x-ray in 4 to 6 weeks Continue scheduled nebs, Perforomist Continue IV Lasix 80 mg BID>>> transition to Torsemide 20mg BID Appreciate Nephrology, Cardiology Input Continue fluid restriction--1500ml Palliative care consulted to address goals of care Clinically no significant improvement Elevated LFTs Bilirubinemia AST/ALT significantly increased to 2000s/1000s Normal alkaline phosphatase --Liver US: Limited examination due to overlying bowel gas. Increased echogenicity of the liver. Cholelithiasis with no ultrasound evidence for acute cholecystitis.Increase fluid over the dome of the liver characteristic of increased ascites. --Portal Vein USD:No portal vein thrombosis. --Hepatitis Panel: Negative Elevated LFTs likely etiology to be congestive hepatopathy, less likely DILI LFTs slowly improving Monitor INR Amiodarone, stain held-- will be DCed upon discharge as well Avoid all hepatotoxic agents as able Appreciate GI input Paroxysmal atrial fibrillation Current paced rhythm INR supratherapeutic at 6.6 on presentation Continue metoprolol 25 mg twice daily Appreciate cardiology input Monitor INR: 3.5>2.9>2.3>2.0 Continue Coumadin--give 2mg today Acute Metabolic Encephalopathy Has intermittent lethargy Likely due to Uremia BUN: 118 Monitor renal function Reorient frequently minimize delirium Hypokalemia Replete electrolytes as needed Pleural effusion: H/O B/L pleural effusions requiring thoracentesis in the recent past Continue diuresis as above Anemia of CKD (chronic kidney disease): Hgb: 9.1 Monitor H/O Lymphoma H/O Myelodysplastic syndrome As per records DVT Px: Coumadin Code Status Full code Disposition Lives at home with his son PT/OT prior to discharge Admission and Anticipated Discharge Date Admission Date: August 14, 2021 Subjective Patient is seen and examined at bedside Less cough and dyspnea today Intermittently lethargic Denies any chest pain, dizziness, nausea, abdominal pain Review of Systems Review of Systems: All systems reviewed & are unremarkable except as noted in Subjective Physical Exam Physical Exam: Physical Exam: Vitals signs as noted above General Appearance:Moderately built and nourished, ill appearing, no apparent distress Head: normocephalic, Atraumatic Eyes: normal inspection, EOMI Neck: supple, Trachea midline Respiratory/Chest: Coarse breath sounds, scattered crackles Cardiovascular: S1, S2, + murmur Abdomen/GI:Soft, Non tender, Bowel sounds present Extremities/Musculoskeletal:normal inspection, no edema Neurologic/Psych:AAOX3, grossly no focal neurological deficits Skin: normal color, warm Results & Data Results & Data ([facility]) Vital Signs (Past 12 Hours) Vital Signs Temp Pulse Pulse Resp BP Pulse Ox 08/21/21 11:45 36.5 C 75 18 125/68 92 08/21/21 11:07 71 18 93 08/21/21 07:26 36.3 C L 63 18 111/70 92 08/21/21 07:12 64 91 08/21/21 04:23 36.3 C L 62 24 99/59 L 91 Laboratory Results [facility] 08/21/21 07:24 Sodium 142 Potassium 2.8 L Chloride 101 Carbon Dioxide 28 BUN 118 H Creatinine 4.02 H D Glucose 119 H Calcium 8.3 L Liver Function 08/21/21 Range/Units 07:24 Total Bilirubin 1.9 H (0.2-1.0) mg/dl AST 95 H (13-39) U/L ALT 358 H (7-52) U/L Alkaline Phosphatase 104 (34-104) U/L Albumin 3.4 (3.4-5.0) gm/dl
[2021-08-21] MEDS: WARFARIN SOD 2 MG TAB PO SCH (16:47)
[2021-08-21 17:22] LABS: BUN Creatinine Ratio 29.4 (10-20); Calcium 9.4 mg/dl (8.5-10.1); Est GFR (African American) 16.3 ml/min; Magnesium 2.5 mg/dl (1.7-2.4); Potassium 3.1 mmol/L (3.5-5.1)
[2021-08-21] MEDS ORDERED: POTASSIUM CHLORIDE CRTAB 20 MEQ TABCR PO ONE (17:45)
--- NOTE | 2021-08-21 20:37 | Nephrology Progress Note ---
Date of Service August 21, 2021 Assessment & Plan (1) CKD (chronic kidney disease) stage 4, GFR 15-29 ml/min: Plan: advanced and progressive CKD stage IV with former baseline creatinine in 2's earlier this year but now more around 4, though some improvement past few days, his renal functions fluctuate with his diuretic use. He has been somewhat noncompliant with diuretic dosing OP at times. Was on 40 of torsemide when he saw me in June which was increased by cardiology, not sure how much he was taking before this admission. -daily standing wt -continue torsemide 20 mg bid -Input and output Daily BMP > repeat if need to replete K -he is on massive K doses; consider trial spironolactone 2 g sodium diet, 1.5L FR to continue -poor candidate for LT dialysis should need arise, particularly d/t cardiac issues (2) Chronic heart failure with reduced ejection fraction and diastolic dysfunction: Plan: As above Admission and Anticipated Discharge Date Admission Date: August 14, 2021 Subjective seen on rounds at 1345; no interval events; nopain; breathing stable; had extra K today; cardiology stopped statin Review of Systems Review of Systems: All systems reviewed & are unremarkable except as noted in Subjective Physical Exam Constitutional: well developed, well nourished, + frail appearing and cooperative; no acute distress Eyes: EOM intact bilaterally ENMT: Ears: no external ear abnormality Nose: no external nose abnormality Mouth: + dry oral mucous membranes Neck: no nuchal rigidity Respiratory: normal respiratory effort Auscultation: + diminished lung sounds (cleo on R) and + crackles (L sided) Cardiovascular: Rate/Rhythm: regular rate and regular rhythm Extremities: + edema Gastrointestinal (Abdomen): Inspection/Auscultation: normal bowel sounds Percussion/Palpation: abdomen soft; abdomen nontender Musculoskeletal: Extremities: strength 5/5 throughout Skin: no rashes, warm and dry Neurologic: [place], fluent speech, no tremor Psychiatric: Orientation: oriented to person and oriented to place Genitourinary: [place] rosario w/ ample urine Results & Data ([facility]) Vital Signs (Past 12 Hours) Vital Signs Temp Pulse Pulse Resp BP BP Pulse Ox 08/21/21 20:00 36.5 C 89 18 91/58 L 93 08/21/21 19:20 77 15 91 08/21/21 15:37 36.3 C L 61 17 94/60 L 95 08/21/21 15:02 61 20 96 08/21/21 11:45 36.5 C 75 18 125/68 92 08/21/21 11:07 71 18 93 Laboratory Results 08/20/21 06:46 08/21/21 16:57 Diagnostic Findings cxr today > mod pulm edema, BL pl effusions R>L
[2021-08-22] MEDS: LEVOTHYROXINE SODIUM 75 MCG TABLET PO SCH (05:51)
[2021-08-22] MEDS: ALBUT/IPRATROP 3MG/0.5MG NEB 3 ML VIAL NEB SCH ×4 (07:13→19:58)
[2021-08-22] MEDS: FORMOTEROL 20 MCG/2 ML VIAL NEB SCH ×2 (07:13→19:57)
[2021-08-22 07:27] LABS: Hematocrit (blood only) 28.2 % (42-52); Hemoglobin 9.4 g/dL (14.0-18.0); Mean Corpuscular Hemoglobin 39.5 pg (25-34); Mean Corpuscular Hgb Conc 33.3 g/dL (32-36); Mean Corpuscular Volume 118.5 fL (80-100); Mean Platelet Volume 10.2 fL (7.4-10.4); Nucleated RBC # (auto) 0.05 K/uL (0-0); Nucleated RBC % (auto) 0.6 %; Platelet Count 170 K/uL (130-400); RDW Coefficient of Variation 22.2 % (11.5-14.5); RDW Standard Deviation 96.9 fL (36.4-46.3); Red Blood Count 2.38 M/uL (4.7-6.1); White Blood Count 8.31 K/uL (4.8-10.8)
[2021-08-22 07:36] LABS: INR 1.9 (0.9-1.1); Prothrombin Time 19.8 Seconds (9.0-12.0)
[2021-08-22 07:47] LABS: Albumin Globulin Ratio 1.7 (0.9-2); Albumin Level 3.2 gm/dl (3.4-5.0); BUN Creatinine Ratio 31.6 (10-20); Calcium 8.1 mg/dl (8.5-10.1); Creatinine Clr Calc Pharmacy 16.3 ml/min; Est GFR (African American) 18.4 ml/min; Est GFR (Non-African American) 15.8 ml/min; Globulin 1.9 gm/dl (2.5-4.0); Potassium 2.8 mmol/L (3.5-5.1); Total Protein 5.1 gm/dl (6.0-8.3)
[2021-08-22] MEDS: AZELASTINE HCL 0.1% NASAL 200 SPRAYS/27,400 MCG BTL NAE SCH ×2 (08:19→20:46)
[2021-08-22] MEDS: FLUTICASONE PROPIONATE NA SPR 16 GM BTL NAE SCH (08:19)
[2021-08-22] MEDS: ASPIRIN 81 MG ECTAB PO SCH (08:21)
[2021-08-22] MEDS: CHOLECALCIFEROL 1,000 UNITS 25 MCG TAB PO SCH (08:21)
[2021-08-22] MEDS: CYANOCOBALAMIN (B-12) 500 MCG TABLET PO SCH (08:21)
[2021-08-22] MEDS: PYRIDOXINE HCL 50 MG TAB PO SCH ×2 (08:21→20:48)
[2021-08-22] MEDS: POTASSIUM CHLORIDE CRTAB 20 MEQ TABCR PO SCH ×3 (08:21→20:47)
[2021-08-22] MEDS: TORSEMIDE 10 MG TAB PO SCH ×2 (08:21→16:58)
[2021-08-22] MEDS: METOPROLOL SUCC 25MG EXT REL TAB PO SCH ×2 (08:21→20:47)
[2021-08-22] MEDS ORDERED: POTASSIUM CHLORIDE CRTAB 20 MEQ TABCR PO ONE (08:30)
--- NOTE | 2021-08-22 09:16 | Electrocardiogram Report ---
Test Reason : Blood Pressure : / mmHG Vent. Rate : 093 BPM Atrial Rate : 078 BPM P-R Int : 000 ms QRS Dur : 178 ms QT Int : 482 ms P-R-T Axes : 000 -07 -47 degrees QTc Int : 599 ms Atrial fibrillation with frequent ventricular-paced complexes Left bundle branch block Abnormal ECG When compared with ECG of 15-AUG-2021 17:17, Vent. rate has increased BY 27 BPM Atrial sensing, ventricular pacing no longer present Confirmed by Robert Persaud ([id number]) on 08/22/2021 9:15:42 AM Referred By: REFERRED SELF Confirmed By:Robert Persaud
[2021-08-22] MEDS ORDERED: POTASSIUM CHLORIDE CRTAB 20 MEQ TABCR PO STA (10:03)
--- NOTE | 2021-08-22 11:09 | Cardiology Progress Note ---
Date of Service August 22, 2021 Assessment & Plan (1) Aortic stenosis, moderate: (2) Cardiorenal syndrome with renal failure: (3) Chronic heart failure with reduced ejection fraction and diastolic dysfunction: (4) CKD (chronic kidney disease) stage 4, GFR 15-29 ml/min: (5) LBBB (left bundle branch block): (6) CLL (chronic lymphocytic leukemia): (7) HAWA (obstructive sleep apnea): (8) Embolism, arterial, leg, left: (9) Ischemic cardiomyopathy: (10) Elevated transaminase level: (11) Anemia in CKD (chronic kidney disease): (12) PAF (paroxysmal atrial fibrillation): Plan: At this point nothing additional to add. The patient seems to be diuresing quite well. I am concerned about his oral intake as he seems to be lethargic and sleeping a lot. Admission and Anticipated Discharge Date Admission Date: August 14, 2021 Subjective The patient is resting comfortably Review of Systems Review of Systems: Review of Systems: See HPI for pertinent positives. All other 10 point review of systems are negative. Physical Exam Physical Exam: General: no acute distress and stated age Head: normocephalic, no masses, lesions, tenderness or abnormalities Eyes: conjunctiva are pink and non-injected, sclera clear Neck: supple, no adenopathy, no bruits, normal jugular venous pulse, no hepatojugular reflux Chest: normal shape and normal respiratory effort Lungs: Bronchial lung sounds but otherwise clear. Cardiac Exam: - regular rate & rhythm, no murmurs gallops or rubs - normal S1, normal S2 Pulses: 2(+) throughout Abdomen: abdomen soft, non-tender, no abnormal masses and no hepatosplenomegaly Musculoskeletal: no gait disturbance, no joint inflammation, no deforming arthritis Extremities: no edema and no cyanosis Neuro: grossly normal exam Results & Data ([facility]) Vital Signs (Past 12 Hours) Vital Signs Temp Pulse Pulse Resp BP Pulse Ox 08/22/21 10:44 81 18 97 08/22/21 07:15 87 20 94 08/22/21 07:07 36.3 C L 85 17 96/51 L 94 08/22/21 04:49 36.4 C L 92 H 20 99/63 L 92 08/22/21 00:17 36.5 C 88 18 95/54 L 97 08/21/21 22:45 92 H Laboratory Results Laboratory Results - last 24 hr 08/21/21 08/22/21 08/22/21 16:57 06:47 06:47 WBC 8.31 RBC 2.38 L Hgb 9.4 L Hct 28.2 L MCV 118.5 H MCH 39.5 H MCHC 33.3 RDW Std Deviation 96.9 H RDW Coeff of Geovanni 22.2 H Plt Count 170 MPV 10.2 Absolute Nucleated RBC 0.05 H Nucleated RBC % (auto) 0.6 PT INR Sodium 144 143 Potassium 3.1 L 2.8 L Chloride 101 101 Carbon Dioxide 29 30 Anion Gap 14 H 12 H BUN 112 H 109 H Creatinine 3.81 H 3.45 H D Est Cr Clr Drug Dosing 15.0 16.3 Est GFR ( Amer) 16.3 18.4 Est GFR (Non-Af Amer) 14.0 15.8 BUN/Creatinine Ratio 29.4 H 31.6 H Glucose 148 H 122 H Calcium 9.4 8.1 L Magnesium 2.5 H Total Bilirubin 2.0 H AST 74 H ALT 285 H Alkaline Phosphatase 94 Total Protein 5.1 L Albumin 3.2 L Globulin 1.9 L Albumin/Globulin Ratio 1.7 08/22/21 06:47 WBC RBC Hgb Hct MCV MCH MCHC RDW Std Deviation RDW Coeff of Geovanni Plt Count MPV Absolute Nucleated RBC Nucleated RBC % (auto) PT 19.8 H INR 1.9 H Sodium Potassium Chloride Carbon Dioxide Anion Gap BUN Creatinine Est Cr Clr Drug Dosing Est GFR ( Amer) Est GFR (Non-Af Amer) BUN/Creatinine Ratio Glucose Calcium Magnesium Total Bilirubin AST ALT Alkaline Phosphatase Total Protein Albumin Globulin Albumin/Globulin Ratio Medications Administered Current Inpatient Medications Acetaminophen (Acetaminophen 325 Mg Tab) 650 mg PO Q4H PRN PRN Reason: Pain or Fever Stop: 09/13/21 16:44 Last Admin: 08/14/21 22:32 Dose: 650 mg Documented by: Albuterol (Albut/Ipratrop 3mg/0.5mg Neb 3 Ml Vial) 3 ml NEB QIDR [facility]; Protocol Stop: 09/17/21 10:59 Last Admin: 08/22/21 10:44 Dose: 3 ml Documented by: Aspirin (Aspirin 81 Mg Ectab) 81 mg PO [facility] Stop: 09/14/21 08:59 Last Admin: 08/22/21 08:21 Dose: 81 mg Documented by: Azelastine HCl (Azelastine Hcl 0.1% Nasal 200 Sprays/27,400 Mcg Btl) 2 sprays RAMIRO BID [facility] Stop: 09/13/21 20:59 Last Admin: 08/22/21 08:19 Dose: 2 sprays Documented by: Cyanocobalamin (Cyanocobalamin (B-12) 500 Mcg Tablet) 1,000 mcg PO QAM [facility] Stop: 09/14/21 08:59 Last Admin: 08/22/21 08:21 Dose: 1,000 mcg Documented by: Fluticasone Propionate (Fluticasone Propionate Na Spr 16 Gm Btl) 1 sprays RAMIRO DAILY [facility] Stop: 09/14/21 08:59 Last Admin: 08/22/21 08:19 Dose: 1 sprays Documented by: Formoterol Fumarate (Formoterol 20 Mcg/2 Ml Vial) 20 mcg NEB BID [facility] Stop: 09/17/21 08:59 Last Admin: 08/22/21 07:13 Dose: 20 mcg Documented by: Promethazine HCl 6.25 mg/ (Sodium Chloride) 50.25 mls @ 201 mls/hr IV Q6H PRN PRN Reason: Nausea And Vomiting Stop: 09/14/21 18:29 Last Infusion: 08/16/21 01:16 Dose: Infused Documented by: Levothyroxine Sodium (Levothyroxine Sodium 75 Mcg Tablet) 75 mcg PO DAILYBB [facility] Stop: 09/14/21 06:29 Last Admin: 08/22/21 05:51 Dose: 75 mcg Documented by: Melatonin (Melatonin 3 Mg Tab) 3 mg PO HS PRN PRN Reason: Sleep Stop: 09/13/21 22:10 Last Admin: 08/20/21 22:09 Dose: 3 mg Documented by: Metoprolol Succinate (Metoprolol Succ 25mg Ext Rel Tab) 25 mg PO BID [facility] Stop: 09/16/21 20:59 Last Admin: 08/22/21 08:21 Dose: 25 mg Documented by: Polyethylene Glycol (Polyethylene (Miralax) 17 Gm Pack) 17 gm PO DAILY PRN PRN Reason: Constipation Stop: 09/13/21 16:44 Potassium Chloride (Potassium Chloride Crtab 20 Meq Tabcr) 20 meq PO TID [facility] Stop: 09/18/21 13:59 Last Admin: 08/22/21 08:21 Dose: 20 meq Documented by: Pyridoxine HCl (Pyridoxine Hcl 50 Mg Tab) 100 mg PO BID [facility] Stop: 09/13/21 20:59 Last Admin: 08/22/21 08:21 Dose: 100 mg Documented by: Torsemide (Torsemide 10 Mg Tab) 10 mg PO BID17 [facility] Stop: 09/21/21 16:59 Vitamin D (Cholecalciferol 1,000 Units 25 Mcg Tab) 1,000 units PO QAM ABAD Stop: 09/14/21 08:59 Last Admin: 08/22/21 08:21 Dose: 1,000 units Documented by: Warfarin Sodium (Warfarin Sod 3 Mg Tab) 3 mg PO DAILY@1600 [facility] Stop: 09/21/21 15:59
[2021-08-22 15:31] LABS: Potassium 3.4 mmol/L (3.5-5.1)
[2021-08-22 15:32] LABS: BUN Creatinine Ratio 31.1 (10-20); Creatinine Clr Calc Pharmacy 17.1 ml/min; Est GFR (African American) 19.5 ml/min; Est GFR (Non-African American) 16.8 ml/min
--- NOTE | 2021-08-22 16:09 | Hospitalist Progress Note ---
Date of Service August 22, 2021 Assessment & Plan (1) Acute and chronic respiratory failure with hypoxia: Plan: Patient is an 81 yr male with H/O HTN, chronic HFrEF, EF 20-25% on echo 2020, s/p ICD, ventricular tachycardia, LBBB, moderate aortic stenosis, CKD IV, arterial thrombosis, chronic anemia, pleural effusions, lymphoma treated with chemotherapy, myelodysplastic syndrome and other problems listed below presented to ER with complaint of shortness of breath and productive cough, rhinorrhea x 1 day. Recent h/o hospitalization for acute on chronic HFrEF, pleural effusions s/p bilateral thoracentesis, ICD placement on 06/15/2021 Acute on chronic respiratory failure with hypoxia secondary to bilateral pneumonia Acute Kidney Injury on CKD IV, likely ATN Acute on chronic CHF, systolic and Diastolic H/O Ischemic cardiomyopathy, EF 25 to 30%, S/P AICD placement --CXR: Possible tiny bilateral pleural effusions, decreased from prior exam. Previously noted airspace opacities have resolved. There is mild pulmonary edema. --ECHO 05/15/2021: EF: 25-30%, large sized apical, septal, anterior septal, anterior and lateral wall motion abnormality with hypokinesis to akinesis of the segments. Mild diffuse right ventricular hypokinesis, moderate mitral regurgitation, mild to moderate tricuspid regurgitation, mild aortic valve stenosis, severe pulmonary hypertension, grade 2 diastolic dysfunction --Sputum culture negative --Blood cultures negative to date Empirically received cefepime and doxycycline for 2 days and then cefuroxime and doxycycline Day #3--Completed course Repeat CXR showed moderate pulmonary edema and bilateral pleural effusions R > L Appreciate pulmonology recommendations Needs repeat chest x-ray in 4 to 6 weeks Continue scheduled nebs, Perforomist Continue IV Lasix 80 mg BID>>> transition to Torsemide 10mg BID Appreciate Nephrology, Cardiology Input Continue fluid restriction--1500ml Palliative care consulted to address goals of care Renal function slowly improving Cr:3.2 today Elevated LFTs Bilirubinemia AST/ALT significantly increased to 2000s/1000s Normal alkaline phosphatase --Liver US: Limited examination due to overlying bowel gas. Increased echogenicity of the liver. Cholelithiasis with no ultrasound evidence for acute cholecystitis.Increase fluid over the dome of the liver characteristic of increased ascites. --Portal Vein USD:No portal vein thrombosis. --Hepatitis Panel: Negative Elevated LFTs likely etiology to be congestive hepatopathy, less likely DILI Monitor INR Amiodarone, stain held-- will be DCed upon discharge as well Avoid all hepatotoxic agents as able Appreciate GI input LFTs slowly improving Paroxysmal atrial fibrillation Current paced rhythm INR supratherapeutic at 6.6 on presentation Continue metoprolol 25 mg twice daily Appreciate cardiology input Monitor INR: 3.5>2.9>2.3>1.9 Continue Coumadin--give 3mg today Acute Metabolic Encephalopathy Has intermittent lethargy Likely due to Uremia BUN: 118 Monitor renal function Reorient frequently minimize delirium Hypokalemia Replete electrolytes as needed Pleural effusion: H/O B/L pleural effusions requiring thoracentesis in the recent past Continue diuresis as above Anemia of CKD (chronic kidney disease): Hgb: 9.4 Monitor H/O Lymphoma H/O Myelodysplastic syndrome As per records DVT Px: Coumadin Code Status Full code Disposition Lives at home with his son PT/OT prior to discharge Admission and Anticipated Discharge Date Admission Date: August 14, 2021 Subjective Patient is seen and examined at bedside No new complaints Poor historian Has intermittent cough No dyspnea at rest Denies any chest pain, dizziness, nausea, abdominal pain Review of Systems Review of Systems: All systems reviewed & are unremarkable except as noted in Subjective Physical Exam Physical Exam: Physical Exam: Vitals signs as noted above General Appearance:Moderately built and nourished, ill appearing, no apparent distress Head: normocephalic, Atraumatic Eyes: normal inspection, EOMI Neck: supple, Trachea midline Respiratory/Chest: Coarse breath sounds, scattered crackles Cardiovascular: S1, S2, + murmur Abdomen/GI:Soft, Non tender, Bowel sounds present Extremities/Musculoskeletal:normal inspection, no edema Neurologic/Psych:AAOX3, grossly no focal neurological deficits Skin: normal color, warm Results & Data Results & Data ([facility]) Vital Signs (Past 12 Hours) Vital Signs Temp Pulse Resp BP Pulse Ox 08/22/21 15:14 36.5 C 95 H 20 94/62 L 98 08/22/21 14:52 96 H 18 98 08/22/21 11:21 36.5 C 95 H 19 92/60 L 95 08/22/21 10:44 81 18 97 08/22/21 07:15 87 20 94 08/22/21 07:07 36.3 C L 85 17 96/51 L 94 08/22/21 04:49 36.4 C L 92 H 20 99/63 L 92 Laboratory Results Short CBC 08/22/21 Range/Units 06:47 WBC 8.31 (4.8-10.8) K/uL Hgb 9.4 L (14.0-18.0) g/dL Hct 28.2 L (42-52) % Plt Count 170 (130-400) K/uL BMP 08/21/21 08/22/21 08/22/21 16:57 06:47 14:50 Sodium 144 143 145 Potassium 3.1 L 2.8 L 3.4 L D Chloride 101 101 101 Carbon Dioxide 29 30 33 H BUN 112 H 109 H 102 H Creatinine 3.81 H 3.45 H D 3.28 H Glucose 148 H 122 H 132 H Calcium 9.4 8.1 L 9.0 Liver Function 08/22/21 Range/Units 06:47 Total Bilirubin 2.0 H (0.2-1.0) mg/dl AST 74 H (13-39) U/L ALT 285 H (7-52) U/L Alkaline Phosphatase 94 (34-104) U/L Albumin 3.2 L (3.4-5.0) gm/dl
--- NOTE | 2021-08-22 16:11 | Nephrology Progress Note ---
Date of Service August 22, 2021 Assessment & Plan (1) CKD (chronic kidney disease) stage 4, GFR 15-29 ml/min: Plan: advanced and progressive CKD stage IV with former baseline creatinine in 2's earlier this year but lately more around 4, though some improvement past few days, his renal function fluctuates with diuretic use. He has been somewhat noncompliant with diuretic dosing OP at times. Was on 40 of torsemide when he saw me in June which was increased by cardiology, not sure how much he was taking before this admission. monoclonic jerks may reflect uremia. -daily standing wt -lowered torsemide to 10 mg bid -added spironolactone 12.5 mg -Input and output Daily BMP > repeat if need to replete K -he is on massive K doses but tolerates 2 g sodium diet, 1.5L FR to continue -poor candidate for LT dialysis should need arise, particularly d/t cardiac iss ues (2) Chronic heart failure with reduced ejection fraction and diastolic dysfunction: Plan: As above Admission and Anticipated Discharge Date Admission Date: August 14, 2021 Subjective no interval events; feels fair to middling; wonders about jerkiness Review of Systems Review of Systems: All systems reviewed & are unremarkable except as noted in Subjective Physical Exam Constitutional: well developed, well nourished, + frail appearing and cooperative; no acute distress Eyes: EOM intact bilaterally ENMT: Ears: no external ear abnormality Nose: no external nose abnormality Mouth: + dry oral mucous membranes Neck: no nuchal rigidity Respiratory: normal respiratory effort Auscultation: + diminished lung sounds and + crackles (bibasilar) Cardiovascular: Rate/Rhythm: + tachycardic and + irregularly irregular Extremities: + edema (trace/less) Gastrointestinal (Abdomen): Inspection/Auscultation: normal bowel sounds Percussion/Palpation: abdomen soft; abdomen nontender Musculoskeletal: Extremities: strength 5/5 throughout Skin: no rashes, warm and dry Psychiatric: Orientation: oriented to person and oriented to place Results & Data ([facility]) Vital Signs (Past 12 Hours) Vital Signs Temp Pulse Resp BP Pulse Ox 08/22/21 15:14 36.5 C 95 H 20 94/62 L 98 08/22/21 14:52 96 H 18 98 08/22/21 11:21 36.5 C 95 H 19 92/60 L 95 08/22/21 10:44 81 18 97 08/22/21 07:15 87 20 94 08/22/21 07:07 36.3 C L 85 17 96/51 L 94 08/22/21 04:49 36.4 C L 92 H 20 99/63 L 92 Laboratory Results 08/22/21 06:47 08/22/21 14:50
[2021-08-22] MEDS: WARFARIN SOD 3 MG TAB PO SCH (16:58)
[2021-08-22] MEDS: SPIRONOLACTONE 12.5 MG TAB PO SCH (17:00)
[2021-08-23] MEDS: LEVOTHYROXINE SODIUM 75 MCG TABLET PO SCH (06:42)
[2021-08-23] MEDS: POLYETHYLENE (MIRALAX) 17 GM PACK PO PRN (06:50)
[2021-08-23 06:53] LABS: INR 1.9 (0.9-1.1); Prothrombin Time 19.4 Seconds (9.0-12.0)
[2021-08-23] MEDS: FORMOTEROL 20 MCG/2 ML VIAL NEB SCH ×2 (07:11→19:08)
[2021-08-23] MEDS: ALBUT/IPRATROP 3MG/0.5MG NEB 3 ML VIAL NEB SCH ×4 (07:11→19:08)
[2021-08-23 07:13] LABS: Albumin Globulin Ratio 1.5 (0.9-2); Albumin Level 3.4 gm/dl (3.4-5.0); BUN Creatinine Ratio 36.2 (10-20); Bilirubin,Total 2.5 mg/dl (0.2-1.0); Creatinine Clr Calc Pharmacy 21.7 ml/min; Est GFR (African American) 26.6 ml/min; Est GFR (Non-African American) 22.9 ml/min; Globulin 2.2 gm/dl (2.5-4.0); Magnesium 2.1 mg/dl (1.7-2.4); Potassium 3.6 mmol/L (3.5-5.1); Total Protein 5.6 gm/dl (6.0-8.3)
--- NOTE | 2021-08-23 09:05 | Cardiology Progress Note ---
Date of Service August 23, 2021 Assessment & Plan (1) Chronic heart failure with reduced ejection fraction and diastolic dys function: (2) LBBB (left bundle branch block): (3) CKD (chronic kidney disease): (4) PAF (paroxysmal atrial fibrillation): (5) Elevated LFTs: Plan: (1) Chronic heart failure with reduced ejection fraction and diastolic dysfunction due to ischemic cardiomyopathy and (2) LBBB (left bundle branch block), with (3) CKD stage 4 (chronic kidney disease) / cardiorenal syndrome and moderate aortic stenosis: -volume status improved. -Nephrology input noted and appreciated, now on oral torsemide 10 mg PO BID , Creatinine trending to improvement. -I have been following patient since 2020, and most notable finding today on my evaluation is generalized cachexia. -Continue metoprolol succinate, no ACEI/ ARB, or Entresto due to renal insufficiency. -Continue low dose spironolactone with caution. -Chronically low SBP noted, typically in the 90s. (4) PAF (paroxysmal atrial fibrillation): -currently in SR. -H/o lower leg embolic event in the setting of pAF while off of anticoagulation. -INR had been above goal at 6.6 on 08/16, now 1.9, Continue current dose of coumadin 3 mg daily. (5)Elevated LFTs -possibly congestive hepatopathy. -Amiodarone DC'D, will monitor AFib burden on future device checks. Appropriate BiV pacemaker AICD function on telemetry Plan to repeat echo for LVEF 3 months post device, due as outpatient in September. Agree with meeting with palliative care. Overall prognosis over next year felt to be poor. Proceed with PT to improve strength. h/o Moderate , will reassess at time of echo next month. Admission and Anticipated Discharge Date Admission Date: August 14, 2021 Subjective Patient seen in cardiology follow up of chief complaint of shortness of breath and generalized weakness. Telemetry reveals SR with biventricular pacemaker activity in the 60s with brief episodes of paroxysmal atrial fibrillation in the 90s with little shell tribe LBBB morphology. Review of Systems Review of Systems: All systems reviewed & are unremarkable except as noted in HPI & below Physical Exam Constitutional: + cachectic Respiratory: normal respiratory effort, lungs clear to auscultation Cardiovascular: Rate/Rhythm: regular rhythm Heart Sounds: + murmur (II//) Extremities: no edema Gastrointestinal (Abdomen): normal bowel sounds, soft, nontender, no hepatosplenomegaly Skin: + ecchymosis (severeal areas of superficial ecchymosis) Neurologic: PERRL, EOMI, accommodation nl, no face palsy, no dysarthria Results & Data ([facility]) Vital Signs (Past 12 Hours) Vital Signs Temp Pulse Pulse Resp BP Pulse Ox 08/23/21 07:34 36.4 C L 65 18 110/69 91 08/23/21 07:12 67 18 94 08/23/21 04:04 36.4 C L 67 16 119/74 94 08/23/21 00:43 70 08/23/21 00:06 36.4 C L 69 20 105/67 94 Laboratory Results Cardiac Enzymes 08/23/21 Range/Units 06:31 AST 68 H (13-39) U/L Coagulation 08/23/21 Range/Units 06:31 PT 19.4 H (9.0-12.0) Seconds Comprehensive Metabolic Panel 08/22/21 08/23/21 Range/Units 14:50 06:31 Sodium 145 144 (136-145) mmol/L Potassium 3.4 L D 3.6 (3.5-5.1) mmol/L Chloride 101 102 (98-107) mmol/L Carbon Dioxide 33 H 31 (21-32) mmol/L BUN 102 H 92 H (6-23) mg/dl Creatinine 3.28 H 2.54 H D (0.6-1.4) mg/dl Glucose 132 H 103 H (70-99(Fasting)) mg/dl Calcium 9.0 9.0 (8.5-10.1) mg/dl AST 68 H (13-39) U/L ALT 241 H (7-52) U/L Alkaline Phosphatase 93 (34-104) U/L Total Protein 5.6 L (6.0-8.3) gm/dl Albumin 3.4 (3.4-5.0) gm/dl Intake and Output 08/22/21 08/23/21 08/23/21 22:59 06:59 14:59 Intake Total 480 / 1920 Output Total 900 / 3500 1350 / 3500 651 / 651 Balance -900 / -1580 -870 / -1580 -651 / -651 Intake: Oral 480 / 1920 Output: Urine Amount (Catheter) 900 / 3500 1350 / 3500 650 / 650 Anthony/Indwelling 900 / 3500 1350 / 3500 650 / 650 # Bowel Movements Other: Other Intake Source Sips Weight 66.1 kg Weight Measurement Method Standing Scale
[2021-08-23] MEDS: FLUTICASONE PROPIONATE NA SPR 16 GM BTL NAE SCH (09:34)
[2021-08-23] MEDS: AZELASTINE HCL 0.1% NASAL 200 SPRAYS/27,400 MCG BTL NAE SCH ×2 (09:34→19:40)
--- NOTE | 2021-08-23 09:34 | Nephrology Progress Note ---
Date of Service August 23, 2021 Assessment & Plan (1) CKD (chronic kidney disease) stage 4, GFR 15-29 ml/min: Plan: advanced and progressive CKD stage IV with former baseline creatinine in 2's earlier this year but lately more around 4, though some improvement past few days, his renal function fluctuates with diuretic use. He has been somewhat noncompliant with diuretic dosing as OP at times. Was on 40 of torsemide when he saw me in June which was increased by cardiology, not sure how much he was taking before this admission. monoclonic jerks may reflect uremia. >>his renal function has improved w/ small cutback on diuretic, however even before scaling back his pl edema as above was worsening; will increase torsemide somewhat and add metolazone d2.5 mg daily to start -daily standing wt to continue; nursing/ staff efforts on this much appreciated -increase PM torsemide dose to 20 mg; cont am torsemide 10 mg -add metolazone 2.5 mg daily -cont spironolactone 12.5 mg -Input and output Daily BMP > repeat if need to replete K -he is on massive K doses but tolerates >> no extra repletion indicated today 2 g sodium diet, 1.5L FR to continue -poor candidate for LT dialysis should need arise, particularly d/t cardiac issues -continue del rosario for now (2) Chronic heart failure with reduced ejection fraction and diastolic dysfunction: Plan: As above (3) Pulmonary edema: Plan: notable that this is worsening particularly on R even before cutting back on diuretics >> -conservative/external measures/aggressive pulmonary toilet -defer to primary service if further imaging or w/u needed Admission and Anticipated Discharge Date Admission Date: August 14, 2021 Subjective had a "so-so" night; breathing unchanged; denies leg pain; has been too weak to get out of Review of Systems Review of Systems: All systems reviewed & are unremarkable except as noted in Subjective Physical Exam Constitutional: well developed, well nourished, + frail appearing and cooperative; no acute distress Eyes: EOM intact bilaterally ENMT: Ears: no external ear abnormality Nose: no external nose abnormality Mouth: + dry oral mucous membranes Neck: no nuchal rigidity Respiratory: normal respiratory effort Auscultation: + diminished lung sounds and + crackles (Worse/higher on R and w/ tubular BS; L base also) Cardiovascular: Rate/Rhythm: + tachycardic and + irregularly irregular Extremities: + edema (less) Gastrointestinal (Abdomen): Inspection/Auscultation: normal bowel sounds Percussion/Palpation: abdomen soft; abdomen nontender Musculoskeletal: Extremities: strength 5/5 throughout but still unable to sit up w/o asst Skin: no rashes, warm and dry Psychiatric: Orientation: oriented to person and oriented to place Genitourinary: del rosario w/ ample urine Results & Data ([facility]) Vital Signs (Past 12 Hours) Vital Signs Temp Pulse Pulse Resp BP Pulse Ox 08/23/21 07:34 36.4 C L 65 18 110/69 91 08/23/21 07:12 67 18 94 08/23/21 04:04 36.4 C L 67 16 119/74 94 08/23/21 00:43 70 08/23/21 00:06 36.4 C L 69 20 105/67 94 Laboratory Results 08/22/21 06:47 08/23/21 06:31 Diagnostic Findings CXR 1. Redemonstration of the moderate pulmonary edema and bilateral pleural effusions, right greater than left. 2. Right basilar densities have slightly progressed and may represent atelectasis from the pleural effusion.
[2021-08-23] MEDS: CYANOCOBALAMIN (B-12) 500 MCG TABLET PO SCH (09:36)
[2021-08-23] MEDS: METOPROLOL SUCC 25MG EXT REL TAB PO SCH ×2 (09:37→19:42)
[2021-08-23] MEDS: CHOLECALCIFEROL 1,000 UNITS 25 MCG TAB PO SCH (09:38)
[2021-08-23] MEDS: ASPIRIN 81 MG ECTAB PO SCH (09:38)
[2021-08-23] MEDS: POTASSIUM CHLORIDE CRTAB 20 MEQ TABCR PO SCH ×3 (09:39→19:42)
[2021-08-23] MEDS: SPIRONOLACTONE 12.5 MG TAB PO SCH (09:40)
[2021-08-23] MEDS: TORSEMIDE 10 MG TAB PO SCH (09:41)
[2021-08-23] MEDS: metOLazone 2.5 MG TABLET PO SCH (11:03)
[2021-08-23] MEDS: PYRIDOXINE HCL 50 MG TAB PO SCH ×2 (11:03→19:41)
--- NOTE | 2021-08-23 12:18 | XRay Report ---
XR chest 1V portable HISTORY: Hemoptysis COMPARISON: Chest 08/21/2021. FINDINGS: No pneumothorax. The heart remains enlarged. Is left-sided pacemaker/defibrillator. The pul monary edema, small bilateral pleural effusions, and right basilar densities have improved. IMPRESSION: Interval improvement in the pulmonary edema, small bilateral pleural effusions, and right basilar den sities. ACT 112: Negative or not required by law. Electronically signed by: Geovanni East M.D. 08/23/2021 12:02 PM
--- NOTE | 2021-08-23 13:10 | Palliative Care Consultation ---
Date of Consultation August 23, 2021 Assessment & Plan (1) Palliative care encounter: Mr. Toledo is an 81 year old male who presented to the [facility] with increased SOB and cough. He had a recent inpatient hospitalization from May 25, 2021 - June 22, 2021 for exacerbation of his CHF and an acute on chronic respiratory failure with pleural effusions that required a thoracentesis, removing 2L. Additional PMH includes: CHF EF 20-25%, s/p ICD, Vtach, LBBB, moderate aortic stenosis, CKD IV, arterial thrombosis, anemia of chronic disease, pleural effusions, lymphoma s/p chemotherapy, myelodysplastic syndrome, and PAF. Palliative Medicine was consulted to address overall goals of care. Mr. Toledo was lying in his bed, awake, when I entered the room. He was awake, alert and oriented to himself and location, but was unable to discuss or process the complexity of his illness or explain why he has been admitted now or during his recent admission. I was able to hold a conversation with him; however, unfortunately, due to his intermittent confusion, I would not deem him to have capacity for medical decision making. I reached out to one of his sons, Grey and spoke at length on the phone at [phone]. He was feeling conflicted about various conversations he has had and was not quite certain how advanced his Dad's illness' were. We discussed CHF with a reduced EF of 20-25% and also his baseline renal function of stage IV renal failure. We discussed how making medication adjustments to his heart medications, ultimately has poor effect on his kidneys. Additionally, his heart failure and complications does not set him up for an anticipated success with hemodialysis. I did discuss code status as he continues to be a full code. Grey referenced the patients documented living will which has been placed on the chart. We did review that it states that should he suffer from any end stage illness that he would NOT want mechanical ventilation nor heart resuscitation. Grey would like to discuss the above with his other three siblings: Javier Henriquez ([place]), Laney ([facility]), and Osmel ([place]).For now, remain a Full Code. Palliative will follow tomorrow with Grey. Above discussed with Dr. Valentin. (2) CKD (chronic kidney disease) stage 4, GFR 15-29 ml/min: Baseline creatinine is 3.0. Has stabilized and most recent creatinine is 2.54, down from 4.5. Per review from Nephrology notes, patient is a poor candidate for HD due to poor cardiac complications/compliance. (3) CLL (chronic lymphocytic leukemia): Pt is increasingly lethargic at times with worsening cachexia compared to Palliative Medicine's encounter in May 2021. (4) Acute and chronic respiratory failure with hypoxia: Previous admission 05/25-06/22. Pt had a thoracentesis with 2L removed during last admission. Small inoculated pleural effusions this admission, not requiring a thoracentesis. History of Present Illness Reason for Consultation: goals of care Requesting Physician: Dr. Valentin Attending Physician: Eulogio Valetnin MD History of Present Illness Mr. Toledo is an 81 year old male who presented to the [facility] with increased SOB and cough. He had a recent inpatient hospitalization from May 25, 2021 - June 22, 2021 for exacerbation of his CHF and an acute on chronic respiratory failure with pleural effusions that required a thoracentesis, removing 2L. Additional PMH includes: CHF EF 20-25%, s/p ICD, Vtach, LBBB, moderate aortic stenosis, CKD IV, arterial thrombosis, anemia of chronic disease, pleural effusions, lymphoma s/p chemotherapy, myelodysplastic syndrome, and PAF. Palliative Medicine was consulted to address overall goals of care. Please see A/P for further information. Allergies Allergy/AdvReac Type Severity Reaction Status Date / Time RYLEE Inhibitors AdvReac Intermediate Renal Verified 08/14/21 15:57 Complications Home Medications Medication Instructions Recorded Confirmed Type azelastine 137 mcg (0.1 %) nasal 2 spray INTRANASAL BID 03/11/21 08/14/21 History spray aerosol cholecalciferol (vitamin D3) 25 25 mcg PO QAM 03/11/21 08/14/21 History mcg (1,000 unit) tablet (Vitamin D3) cyanocobalamin (vitamin B-12) 1,000 mcg PO QAM 03/11/21 08/14/21 History 1,000 mcg tablet (Vitamin B-12) fluticasone propionate 50 1 spray INTRANASAL DAILY 03/11/21 08/14/21 History mcg/actuation nasal spray,suspension levothyroxine 75 mcg tablet 75 mcg PO DAILYBB 03/11/21 08/14/21 History pyridoxine (vitamin B6) 100 mg 100 mg PO AMPM 03/11/21 08/14/21 History tablet (Vitamin B-6) triamcinolone acetonide 0.1 % 1 applic TOPICAL HS PRN 03/11/21 08/14/21 History topical ointment aspirin 81 mg tablet,delayed 81 mg PO QAM #30 tab 03/20/21 08/14/21 Rx release amiodarone 200 mg tablet 200 mg PO QAM 05/14/21 08/14/21 History torsemide 20 mg tablet 40 mg PO BID 05/14/21 08/14/21 History atorvastatin 40 mg tablet 40 mg PO HS 05/16/21 08/14/21 History gabapentin 100 mg capsule 100 mg PO AMPM PRN 08/14/21 08/14/21 History metoprolol succinate 25 mg 12.5 mg PO HS 08/14/21 08/14/21 History tablet,extended release 24 hr potassium chloride 20 mEq 40 meq PO QAM 08/14/21 08/14/21 History tablet,extended release(part/cryst) warfarin 2 mg tablet 2 mg PO DAILY 08/14/21 08/14/21 History Patient History Medical History (Updated 08/23/21 @ 13:09 by REMA Minor) Anemia due to chronic disease treated with erythropoietin Anemia in CKD (chronic kidney disease) Aortic stenosis, moderate Cardiorenal syndrome with renal failure Chronic heart failure with reduced ejection fraction and diastolic dysfunction CKD (chronic kidney disease) stage 4, GFR 15-29 ml/min CLL (chronic lymphocytic leukemia) H/O: rheumatic fever HTN (hypertension) ICD (implantable cardioverter-defibrillator) in place LBBB (left bundle branch block) MDS (myelodysplastic syndrome), low grade Nocturnal hypoxemia HAWA (obstructive sleep apnea) Palliative care encounter Paroxysmal atrial fibrillation Prostate cancer Tobacco use disorder Surgical History H/O uvulectomy H/O vascular surgery LLE: thrombectomy at [facility] S/P tonsillectomy and adenoidectomy Family History Other Family history non-contributory Social History Smoking Status: Former smoker Tobacco Type: Cigarettes Smoking End Date: 05/2021; Second Hand Exposure: No; Hx Alcohol Use: No Hx Substance Use: No Preferred Language: Bruneian Communication Ability: Effective Communication Ability Comment: only reads and writes a litttle Chairman And Ceo Required: No Beliefs That Will Affect Care: None marital status: / Current Living Situation: Significant Other Current Living Situation Comment: Pt lives with girlfriend Zaira Toledo How many Children do You have: 4 Feels Safe at Home: Yes Safety Concerns: Feels Safe At This Time Assistive Devices: Review of Systems Review of Systems: [place] System Assessment Scale: Pain: 0/3 SOB: 0/3 on RA Depression: 0/3 Nausea: 0/3 Palliative Performance Scale: 30% Physical Exam Constitutional: + thin, + frail appearing and comfortable Neck: normal visual inspection Respiratory: does not use accessory muscles Auscultation: + crackles (expiratory) and + wheezes (expiratory ) Cardiovascular: Rate/Rhythm: regular rate and regular rhythm Heart Sounds: normal S1, normal S2 and + murmur Extremities: normal capillary refill; no edema Gastrointestinal (Abdomen): Inspection/Auscultation: abdomen normal to inspection Skin: normal turgor and + pallor Psychiatric: Orientation: alert, oriented to person and oriented to place Insight: good insight Judgement: good judgement Results & Data ([facility]) Vital Signs (Past 12 Hours) Vital Signs Temp Pulse Resp BP Pulse Ox 08/23/21 11:07 88 18 92 08/23/21 07:34 36.4 C L 65 18 110/69 91 08/23/21 07:12 67 18 94 08/23/21 04:04 36.4 C L 67 16 119/74 94 PG Care Time/CCT Total # of Minutes Spent Total Time Spent with Patient: Total time spent is greater than 50% in coordination of care (as documented) at patient's floor/unit and/or counseling patient: 100 minutes Coding Level of Care Code 54083 Inpt Consult Level 4 Diagnoses Palliative care encounter Z51.5 CKD (chronic kidney disease) stage 4, GFR 15-29 ml/min N18.4 CLL (chronic lymphocytic leukemia) C91.10 Acute and chronic respiratory failure with hypoxia J96.21 Time Spent (min) 100
--- NOTE | 2021-08-23 14:06 | Hospitalist Progress Note ---
Date of Service August 23, 2021 Assessment & Plan (1) Acute and chronic respiratory failure with hypoxia: Plan: Patient is an 81 yr male with H/O HTN, chronic HFrEF, EF 20-25% on echo 2020, s/p ICD, ventricular tachycardia, LBBB, moderate aortic stenosis, CKD IV, arterial thrombosis, chronic anemia, pleural effusions, lymphoma treated with chemotherapy, myelodysplastic syndrome and other problems listed below presented to ER with complaint of shortness of breath and productive cough, rhinorrhea x 1 day. Recent h/o hospitalization for acute on chronic HFrEF, pleural effusions s/p bilateral thoracentesis, ICD placement on 06/15/2021 Acute on chronic respiratory failure with hypoxia secondary to bilateral pneumonia Acute Kidney Injury on CKD IV, likely ATN Acute on chronic CHF, systolic and Diastolic H/O Ischemic cardiomyopathy, EF 25 to 30%, S/P AICD placement --CXR: Possible tiny bilateral pleural effusions, decreased from prior exam. Previously noted airspace opacities have resolved. There is mild pulmonary edema. --ECHO 05/15/2021: EF: 25-30%, large sized apical, septal, anterior septal, anterior and lateral wall motion abnormality with hypokinesis to akinesis of the segments. Mild diffuse right ventricular hypokinesis, moderate mitral regurgitation, mild to moderate tricuspid regurgitation, mild aortic valve stenosis, severe pulmonary hypertension, grade 2 diastolic dysfunction --Sputum culture negative --Blood cultures negative to date Empirically received cefepime and doxycycline for 2 days and then cefuroxime and doxycycline Day #3--Completed course Repeat CXR showed moderate pulmonary edema and bilateral pleural effusions R > L Appreciate pulmonology recommendations Needs repeat chest x-ray in 4 to 6 weeks Continue scheduled nebs, Perforomist Continue IV Lasix 80 mg BID>>> transition to Torsemide Added spironolactone 12.5mg daily Appreciate Nephrology, Cardiology Input Continue fluid restriction Palliative care consulted to address goals of care Cr:2.54 today Continue torsemide 10 mg a.m., 20 mg p.m. Added metoprolol 2.5 mg daily Hemoptysis Hold Aspirin, Coumadin today Monitor H&H CXR today showed improvement in the pulmonary edema, small bilateral pleural effusions, and right basilar densities Requested Pulmonology to re-eval for hemoptysis Elevated LFTs Bilirubinemia AST/ALT significantly increased to 2000s/1000s Normal alkaline phosphatase --Liver US: Limited examination due to overlying bowel gas. Increased echogenicity of the liver. Cholelithiasis with no ultrasound evidence for acute cholecystitis.Increase fluid over the dome of the liver characteristic of increased ascites. --Portal Vein USD:No portal vein thrombosis. --Hepatitis Panel: Negative Elevated LFTs likely etiology to be congestive hepatopathy, less likely DILI Monitor INR Amiodarone, stain held-- will be DCed upon discharge as well Avoid all hepatotoxic agents as able Appreciate GI input LFTs slowly improving Paroxysmal atrial fibrillation Current paced rhythm INR supratherapeutic at 6.6 on presentation Continue metoprolol 25 mg twice daily Appreciate cardiology input Monitor INR: 3.5>2.9>2.3>1.9 Hold Coumadin due to hemoptysis today Acute Metabolic Encephalopathy Has intermittent lethargy Likely due to Uremia Monitor renal function Reorient frequently minimize delirium Improved Hypokalemia Replete electrolytes as needed Pleural effusion: H/O B/L pleural effusions requiring thoracentesis in the recent past Continue diuresis as above Anemia of CKD (chronic kidney disease): Hgb: 9.4 Monitor H/O Lymphoma H/O Myelodysplastic syndrome As per records DVT Px: Coumadin--Held for hemoptysis SCDs for now Code Status Full code Disposition Lives at home with his son PT/OT prior to discharge Admission and Anticipated Discharge Date Admission Date: August 14, 2021 Subjective Patient is seen and examined at bedside Patient noted to have hemoptysis today Less dyspnea today Renal function slowly improving Discussed with Pulmonology today Reports cough but denies chest pain, dizziness, nausea, abdominal pain Review of Systems Review of Systems: All systems reviewed & are unremarkable except as noted in Subjective Physical Exam Physical Exam: Physical Exam: Vitals signs as noted above General Appearance:Moderately built and nourished, ill appearing, no apparent distress Head: normocephalic, Atraumatic Eyes: normal inspection, EOMI Neck: supple, Trachea midline Respiratory/Chest: Decreased breath sounds, scattered crackles, wheezes Cardiovascular: S1, S2, + murmur Abdomen/GI:Soft, Non tender, Bowel sounds present Extremities/Musculoskeletal:normal inspection, no edema Neurologic/Psych:AAOX3, grossly no focal neurological deficits Skin: normal color, warm Results & Data Results & Data ([facility]) Vital Signs (Past 12 Hours) Vital Signs Temp Pulse Resp BP Pulse Ox 08/23/21 11:07 88 18 92 08/23/21 07:34 36.4 C L 65 18 110/69 91 08/23/21 07:12 67 18 94 08/23/21 04:04 36.4 C L 67 16 119/74 94 Laboratory Results BMP 08/22/21 08/23/21 14:50 06:31 Sodium 145 144 Potassium 3.4 L D 3.6 Chloride 101 102 Carbon Dioxide 33 H 31 BUN 102 H 92 H Creatinine 3.28 H 2.54 H D Glucose 132 H 103 H Calcium 9.0 9.0 Liver Function 08/23/21 Range/Units 06:31 Total Bilirubin 2.5 H (0.2-1.0) mg/dl AST 68 H (13-39) U/L ALT 241 H (7-52) U/L Alkaline Phosphatase 93 (34-104) U/L Albumin 3.4 (3.4-5.0) gm/dl
[2021-08-23 14:13] LABS: Hematocrit (blood only) 32.1 % (42-52); Hemoglobin 10.1 g/dL (14.0-18.0)
--- NOTE | 2021-08-23 16:20 | Pulmonology Progress Note ---
Date of Service August 23, 2021 Assessment & Plan (1) Pneumonia: Laterality: right Lung location: lower lobe of lung Pneumonia type: due to unspecified organism Qualified Code(s): J18.9 - Pneumonia, unspecified organism (2) Chronic heart failure with reduced ejection fraction and diastolic dysfunction: (3) Aortic stenosis, moderate: (4) SOB (shortness of breath): (5) Hypoxemia: (6) Hemoptysis: Plan: Impression: 81-year-old male with a multiplicity of medical issues admitted with cough shortness of breath and hypoxemia. Recommendations: Hemoptysis: Patient denies at this time. CXR with improving infiltrates. No indication for bronch. Hypoxia: Currently on RA at rest. Recommend maintaining sats around 90%. Ricky nue to maintain euvolemia given hx of CHF. Pleural effusion: Previously drained. No indication for thora at this time. Prior pleural fluid studies indicate transudate likely from CHF. COPD: Continue inhalers. Overarching issue is severe global weakness likely from prolonged hospital stays. Agree with palliative care eval. Thank you. Admission and Anticipated Discharge Date Admission Date: August 14, 2021 Subjective Patient would like to go home. Tired. Denies dyspnea at rest. No fevers, chills or ns. Denies chest pain. On RA. Review of Systems Review of Systems: All systems reviewed & are unremarkable except as noted in HPI & below Physical Exam Constitutional: WD/WN, vitals as above Neck: trachea midline, no thyromegaly Respiratory: no respiratory distress and no labored breathing Cardiovascular: RRR, no murmur, no edema Gastrointestinal (Abdomen): normal bowel sounds, soft, nontender, no hepatosplenomegaly Musculoskeletal: Extremities: extremities normal to inspection Skin: no rashes, warm and dry Lymphatic: no cervical lymphadenopathy Results & Data Results & Data ([facility]) Vital Signs (Past 12 Hours) Vital Signs Temp Pulse Resp BP Pulse Ox 08/23/21 15:57 36.6 C 67 20 106/65 90 08/23/21 14:50 66 20 90 08/23/21 11:07 88 18 92 08/23/21 07:34 36.4 C L 65 18 110/69 91 08/23/21 07:12 67 18 94 PG Care Time/CCT Total # of Minutes Spent Total Time Spent with Patient: Total time spent is greater than 50% in coordination of care (as documented) at patient's floor/unit and/or counseling patient: Coding Level of Care Code 05359 Subseq Hosp Care Lvl 2 Diagnoses Pneumonia J18.9 Laterality: right Lung location: lower lobe of lung Pneumonia type: due to unspecified organism Chronic heart failure with reduced ejection fraction and diastolic dysfunction I50.42 Aortic stenosis, moderate I35.0 SOB (shortness of breath) R06.02 Hypoxemia R09.02 Hemoptysis R04.2
[2021-08-23] MEDS ORDERED: TORSEMIDE 20 MG TAB PO SCH (17:00)
[2021-08-24] MEDS: LEVOTHYROXINE SODIUM 75 MCG TABLET PO SCH (06:04)
[2021-08-24] MEDS: FORMOTEROL 20 MCG/2 ML VIAL NEB SCH ×2 (07:12→18:59)
[2021-08-24] MEDS: ALBUT/IPRATROP 3MG/0.5MG NEB 3 ML VIAL NEB SCH ×3 (07:12→15:28)
[2021-08-24 07:32] LABS: INR 1.8 (0.9-1.1); Prothrombin Time 18.2 Seconds (9.0-12.0)
[2021-08-24 07:46] LABS: Albumin Globulin Ratio 1.7 (0.9-2); Albumin Level 3.5 gm/dl (3.4-5.0); Bilirubin,Total 3.4 mg/dl (0.2-1.0); Calcium 8.6 mg/dl (8.5-10.1); Creatinine Clr Calc Pharmacy 20.1 ml/min; Est GFR (Non-African American) 22.4 ml/min; Globulin 2.1 gm/dl (2.5-4.0); Potassium 3.9 mmol/L (3.5-5.1); Total Protein 5.6 gm/dl (6.0-8.3)
[2021-08-24] MEDS ORDERED: TORSEMIDE 10 MG TAB PO SCH (09:00)
[2021-08-24 09:02] LABS: Hematocrit (blood only) 34.9 % (42-52); Hemoglobin 11.3 g/dL (14.0-18.0)
[2021-08-24] MEDS: FLUTICASONE PROPIONATE NA SPR 16 GM BTL NAE SCH (09:36)
[2021-08-24] MEDS: AZELASTINE HCL 0.1% NASAL 200 SPRAYS/27,400 MCG BTL NAE SCH ×2 (09:36→21:37)
[2021-08-24] MEDS: CYANOCOBALAMIN (B-12) 500 MCG TABLET PO SCH (10:11)
[2021-08-24] MEDS: PYRIDOXINE HCL 50 MG TAB PO SCH ×2 (10:13→21:39)
[2021-08-24] MEDS: CHOLECALCIFEROL 1,000 UNITS 25 MCG TAB PO SCH (10:13)
[2021-08-24] MEDS: SPIRONOLACTONE 12.5 MG TAB PO SCH (10:16)
[2021-08-24] MEDS: METOPROLOL SUCC 25MG EXT REL TAB PO SCH ×2 (10:17→21:34)
[2021-08-24] MEDS: POTASSIUM CHLORIDE CRTAB 20 MEQ TABCR PO SCH ×2 (10:17→21:37)
--- NOTE | 2021-08-24 10:29 | Cardiology Progress Note ---
Date of Service August 24, 2021 Assessment & Plan (1) Chronic heart failure with reduced ejection fraction and diastolic dys function: (2) LBBB (left bundle branch block): (3) CKD (chronic kidney disease): (4) PAF (paroxysmal atrial fibrillation): (5) Elevated LFTs: Plan: (1) Chronic heart failure with reduced ejection fraction and diastolic dysfunction due to ischemic cardiomyopathy and (2) LBBB (left bundle branch block), with (3) CKD stage 4 (chronic kidney disease) / cardiorenal syndrome and moderate aortic stenosis: -volume status improved. -Nephrology input noted and appreciated , continue oral torsemide 10 mg PO BID , with hold for SBP < 100 mm Hg. -I have been following patient since 2020, and most notable finding today on my evaluation is generalized cachexia. -Continue metoprolol succinate, no ACEI/ ARB, or Entresto due to renal insufficiency. -Continue low dose spironolactone with caution. -Chronically low SBP noted, typically in the 90s. (4) PAF (paroxysmal atrial fibrillation): -currently in SR. -H/o lower leg embolic event in the setting of pAF while off of anticoagulation. -INR had been above goal at 6.6 on 08/16, now 1.8 08/24/21, Continue current dose of coumadin 3 mg daily, may need to increase. (5)Elevated LFTs -trending toward improvement , possibly congestive hepatopathy. -Amiodarone DC'D, will monitor AFib burden on future device checks. Appropriate BiV pacemaker AICD function on telemetry Plan to repeat echo for LVEF 3 months post device, due as outpatient in September. Proceed with PT to improve strength. h/o Moderate , will reassess at time of echo next month. Agree with meeting with palliative care. Overall prognosis over next year felt to be poor. Admission and Anticipated Discharge Date Admission Date: August 14, 2021 Subjective Patient seen in cardiology follow up of chronic heart failure with reduced LVEF, due to ischemic cardiomyopathy, LBBB, cardiorenal syndrome. Pt diuresed well in last 24 hours, 2.7 L negative, however, relative hypotension noted, SBP 89 mm Hg at 10:09 am, baseline SBP 90s to 110 mm Hg. Telemetry reveals SR in the 60s, with appropriate biventricular pacemaker activity. Review of Systems Review of Systems: Review of Systems: See HPI for pertinent positives. All other 10 point review of systems are negative. Physical Exam Physical Exam: Temp Pulse Resp BP Pulse Ox 36.5 C 67 18 89/52 L 89 L 08/24/21 07:36 08/24/21 09:30 08/24/21 07:36 08/24/21 10:09 08/24/21 09:30 Constitutional: + cachectic Respiratory: normal respiratory effort, lungs clear to auscultation Cardiovascular: Rate/Rhythm: regular rhythm Heart Sounds: + murmur (II//) Extremities: no edema Gastrointestinal (Abdomen): normal bowel sounds, soft, nontender, no hepatosplenomegaly Skin: + ecchymosis (severeal areas of superficial ecchymosis) Neurologic: PERRL, EOMI, accommodation nl, no face palsy, no dysarthria Results & Data ([facility]) Vital Signs (Past 12 Hours) Vital Signs Temp Pulse Pulse Resp BP Pulse Ox 08/24/21 10:09 89/52 L 08/24/21 10:08 84/46 L 08/24/21 09:30 67 95/64 L 89 L 08/24/21 07:36 36.5 C 67 18 110/65 92 08/24/21 07:14 73 18 90 08/24/21 02:21 36.6 C 70 16 101/60 92 08/24/21 00:10 67 08/23/21 22:29 36.8 C 67 16 101/56 L 94 Laboratory Results Cardiac Enzymes 08/24/21 Range/Units 06:58 AST 60 H (13-39) U/L Coagulation 08/24/21 Range/Units 06:58 PT 18.2 H (9.0-12.0) Seconds CBC 08/23/21 08/24/21 Range/Units 14:06 07:03 Hgb 10.1 L 11.3 L (14.0-18.0) g/dL Hct 32.1 L 34.9 L (42-52) % Comprehensive Metabolic Panel 08/24/21 Range/Units 06:58 Sodium 145 (136-145) mmol/L Potassium 3.9 (3.5-5.1) mmol/L Chloride 101 (98-107) mmol/L Carbon Dioxide 35 H (21-32) mmol/L BUN 88 H (6-23) mg/dl Creatinine 2.59 H (0.6-1.4) mg/dl Glucose 88 (70-99(Fasting)) mg/dl Calcium 8.6 (8.5-10.1) mg/dl AST 60 H (13-39) U/L ALT 198 H (7-52) U/L Alkaline Phosphatase 92 (34-104) U/L Total Protein 5.6 L (6.0-8.3) gm/dl Albumin 3.5 (3.4-5.0) gm/dl Intake and Output 08/23/21 08/24/21 08/24/21 22:59 06:59 14:59 Intake Total 350 / 750 Output Total 1500 / 4151 1000 / 4151 Balance -1150 / -3401 -1000 / -3401 Intake: Oral 350 / 750 Output: Urine Amount (Catheter) 1500 / 4150 1000 / 4150 Anthony/Indwelling 1500 / 4150 1000 / 4150 Other: Other Intake Source sips at this time Weight 66.1 kg 62.4 kg Weight Measurement Method Standing Scale
--- NOTE | 2021-08-24 10:53 | Palliative Care Progress Note ---
Date of Service August 24, 2021 Assessment & Plan (1) Palliative care encounter: Plan: Mr. Toledo was sitting in his bedside chair today when I visited with him. I was able to hold a conversation with him; however, unfortunately, due to his i ntermittent confusion, I would not deem him to have capacity for medical decision making. I did talk to him briefly about why he is in the hospital and about his poor heart and kidney function. He did seem to understand that while those two organs are stabilizing; he expressed understanding that they are not able to be fully fixed. I called Grey at [phone] who I spoke to at length. We discussed his most recent lab work and went over my interaction. Unfortunately, their mother had to be admitted to the hospital in [place], so their focus has shifted to their mother. He did say that he felt that a family meeting would be possible on around noon on the phone. I will follow up to confirm such. As previously mentioned, we discussed CHF with a reduced EF of 20-25% and also his baseline renal function of stage IV renal failure. We discussed how making medication adjustments to his heart medications, ultimately has poor effect on his kidneys. Additionally, his heart failure and complications does not set him up for an anticipated success with hemodialysis. Yesterday, we did review that it states that should he suffer from any end stage illness that he would NOT want mechanical ventilation nor heart resuscitation. Grey would like to discuss the above with his other three siblings: Javier Henriquez ([place]), Laney ([facility]), and Osmel ([place]).For now, remain a Full Code. Palliative will follow. (2) CKD (chronic kidney disease) stage 4, GFR 15-29 ml/min: Plan: Baseline creatinine is 3.0. Has stabilized and most recent creatinine is 2.54, down from 4.5. Per review from Nephrology notes, patient is a poor candidate for HD due to poor cardiac complications/compliance. (3) CLL (chronic lymphocytic leukemia): Plan: Pt is increasingly lethargic at times with worsening cachexia compared to Palliative Medicine's encounter in May 2021. (4) Acute and chronic respiratory failure with hypoxia: Plan: Previous admission 05/25-06/22. Pt had a thoracentesis with 2L removed during last admission. Small inoculated pleural effusions this admission, not requiring a thoracentesis. Admission and Anticipated Discharge Date Admission Date: August 14, 2021 Subjective Pt sitting in his bedside chair. AAOx3. Able to have more conversation than yesterday. I reached out to his son, Grey. See A/P for further details. Review of Systems Review of Systems: [place] System Assessment Scale: Pain: 0/3 SOB: 0/3 on RA Depression: 0/3 Nausea: 0/3 Palliative Performance Scale: 30% Physical Exam Constitutional: + thin, + frail appearing and comfortable Neck: normal visual inspection Respiratory: does not use accessory muscles Auscultation: + crackles (expiratory) and + wheezes (expiratory ) Cardiovascular: Rate/Rhythm: regular rate and regular rhythm Heart Sounds: normal S1, normal S2 and + murmur Extremities: normal capillary refill; no edema Gastrointestinal (Abdomen): Inspection/Auscultation: abdomen normal to inspection Skin: normal turgor and + pallor Psychiatric: Orientation: alert, oriented to person and oriented to place Insight: good insight Judgement: good judgement Results & Data ([facility]) Vital Signs (Past 12 Hours) Vital Signs Temp Pulse Pulse Resp BP Pulse Ox 08/24/21 10:09 89/52 L 08/24/21 10:08 84/46 L 08/24/21 09:30 67 95/64 L 89 L 08/24/21 07:36 36.5 C 67 18 110/65 92 08/24/21 07:14 73 18 90 08/24/21 02:21 36.6 C 70 16 101/60 92 08/24/21 00:10 67 PG Care Time/CCT Total # of Minutes Spent Total Time Spent with Patient: Total time spent is greater than 50% in coordination of care (as documented) at patient's floor/unit and/or counseling patient: 45 mintues Coding Level of Care Code 52343 Subseq Hosp Care Lvl 3 Diagnoses Palliative care encounter Z51.5 CKD (chronic kidney disease) stage 4, GFR 15-29 ml/min N18.4 CLL (chronic lymphocytic leukemia) C91.10 Acute and chronic respiratory failure with hypoxia J96.21 Time Spent (min) 45
[2021-08-24] MEDS ORDERED: METOPROLOL SUCC 25MG EXT REL TAB PO ONE (12:54)
[2021-08-24] MEDS: metOLazone 2.5 MG TABLET PO SCH (13:00)
[2021-08-24] MEDS ORDERED: ALBUT/IPRATROP 3MG/0.5MG NEB 3 ML VIAL NEB PRN (15:05)
[2021-08-24] MEDS: POLYETHYLENE (MIRALAX) 17 GM PACK PO PRN (15:11)
--- NOTE | 2021-08-24 15:27 | Nephrology Progress Note ---
Date of Service August 24, 2021 Assessment & Plan (1) CKD (chronic kidney disease) stage 4, GFR 15-29 ml/min: Plan: advanced and progressive CKD stage IV with former baseline creatinine in 2's earlier this year but lately more around 4, though some improvement past few days, his renal function fluctuates with diuretic use. He has been somewhat noncompliant with diuretic dosing as OP at times. Was on 40 of torsemide when he saw me in June which was increased by cardiology, not sure how much he was taking before this admission. monoclonic jerks may reflect uremia. >>his renal function has improved w/ small cutback on diuretic, however even before scaling back his pl edema as above was worsening; increased diuretics yesterday w/ marked success at volume removal but now a bit more hypotenisive -stopped metolazone; spironolactone held today -lowered torsemide back to 10 mg bid w/ hold parameters -Input and output Daily BMP > repeat if need to replete K -he is on massive K doses but tolerates >> no extra repletion indicated today 2 g sodium diet, 1.5L FR to continue -poor candidate for LT dialysis should need arise, particularly d/t cardiac issues -continue del rosario for now care coordinated with Dr Alatorre (2) Chronic heart failure with reduced ejection fraction and diastolic dysfunction: Plan: As above (3) Pulmonary edema: Plan: notable that this is worsening particularly on R even before cutting back on diu retics >> -conservative/external measures/aggressive pulmonary toilet -defer to primary service if further imaging or w/u needed Admission and Anticipated Discharge Date Admission Date: August 14, 2021 Subjective seen on rounds this am 0940; 3.5L diuresis since adding more aggressive diuretics and some lower bp. no worsening sob; cont generalized weakenss/ fatigue; Review of Systems Review of Systems: All systems reviewed & are unremarkable except as noted in Subjective Physical Exam Constitutional: well developed, well nourished, + frail appearing (up in chair on RA) and cooperative; no acute distress Eyes: EOM intact bilaterally ENMT: Ears: no external ear abnormality Nose: no external nose abnormality Mouth: + dry oral mucous membranes Neck: no nuchal rigidity Respiratory: normal respiratory effort Auscultation: + diminished lung sounds and + crackles (bibasilar) Cardiovascular: Rate/Rhythm: + tachycardic and + irregularly irregular Heart Sounds: + murmur Extremities: + edema (less) Gastrointestinal (Abdomen): Inspection/Auscultation: normal bowel sounds Percussion/Palpation: abdomen soft; abdomen nontender Musculoskeletal: Extremities: strength 5/5 throughout Skin: no rashes, warm and dry Neurologic: myoclonic jerks; fluent but limited speech Psychiatric: Orientation: oriented to person and oriented to place Results & Data ([facility]) Vital Signs (Past 12 Hours) Vital Signs Temp Pulse Resp BP Pulse Ox 08/24/21 12:40 67 96/59 L 08/24/21 12:07 36.6 C 67 18 109/64 96 08/24/21 11:14 65 18 92 08/24/21 10:09 89/52 L 08/24/21 10:08 84/46 L 08/24/21 09:30 67 95/64 L 89 L 08/24/21 07:36 36.5 C 67 18 110/65 92 08/24/21 07:14 73 18 90 Laboratory Results 08/24/21 07:03 08/24/21 06:58
[2021-08-24] MEDS: WARFARIN SOD 3 MG TAB PO SCH (16:13)
--- NOTE | 2021-08-24 16:46 | Hospitalist Progress Note ---
Date of Service August 24, 2021 Assessment & Plan (1) Acute and chronic respiratory failure with hypoxia: Plan: Patient is an 81 yr male with H/O HTN, chronic HFrEF, EF 20-25% on echo 2020, s/p ICD, ventricular tachycardia, LBBB, moderate aortic stenosis, CKD IV, arterial thrombosis, chronic anemia, pleural effusions, lymphoma treated with chemotherapy, myelodysplastic syndrome and other problems listed below presented to ER with complaint of shortness of breath and productive cough, rhinorrhea x 1 day. Recent h/o hospitalization for acute on chronic HFrEF, pleural effusions s/p bilateral thoracentesis, ICD placement on 06/15/2021 Acute on chronic respiratory failure with hypoxia secondary to bilateral pneumonia Acute Kidney Injury on CKD IV, likely ATN Acute on chronic CHF, systolic and Diastolic H/O Ischemic cardiomyopathy, EF 25 to 30%, S/P AICD placement --CXR: Possible tiny bilateral pleural effusions, decreased from prior exam. Previously noted airspace opacities have resolved. There is mild pulmonary edema. --ECHO 05/15/2021: EF: 25-30%, large sized apical, septal, anterior septal, anterior and lateral wall motion abnormality with hypokinesis to akinesis of the segments. Mild diffuse right ventricular hypokinesis, moderate mitral regurgitation, mild to moderate tricuspid regurgitation, mild aortic valve stenosis, severe pulmonary hypertension, grade 2 diastolic dysfunction --Sputum culture negative --Blood cultures negative to date Empirically received cefepime and doxycycline for 2 days and then cefuroxime and doxycycline Day #3--Completed course Repeat CXR showed moderate pulmonary edema and bilateral pleural effusions R > L Appreciate pulmonology recommendations Needs repeat chest x-ray in 4 to 6 weeks Continue PerforomistRicardo PRN Continue IV Lasix 80 mg BID>>> transition to Torsemide Discontinued Metolazone Spironolactone held today Appreciate Nephrology, Cardiology Input Continue fluid restriction, low salt diet Palliative care consulted to address goals of care Cr:2.59 today Decreased torsemide 10 mg BID Monitor volume status closely Decrease potassium chloride to 20 mEq twice daily Hemoptysis Hold Aspirin today Monitor H&H CXR today showed improvement in the pulmonary edema, small bilateral pleural effusions, and right basilar densities Appreciate Pulmonology Input Hb stable Resume Coumadin today Elevated LFTs Bilirubinemia AST/ALT significantly increased to 2000s/1000s Normal alkaline phosphatase --Liver US: Limited examination due to overlying bowel gas. Increased echogenicity of the liver. Cholelithiasis with no ultrasound evidence for acute cholecystitis.Increase fluid over the dome of the liver characteristic of increased ascites. --Portal Vein USD:No portal vein thrombosis. --Hepatitis Panel: Negative Elevated LFTs likely etiology to be congestive hepatopathy, less likely DILI Monitor INR Amiodarone, stain held-- will be DCed upon discharge as well Avoid all hepatotoxic agents as able Appreciate GI input LFTs slowly improving Paroxysmal atrial fibrillation Current paced rhythm INR supratherapeutic at 6.6 on presentation Continue metoprolol 25 mg twice daily Appreciate cardiology input Monitor INR: 3.5>2.9>2.3>1.8 Resume Coumadin today Acute Metabolic Encephalopathy Has intermittent lethargy Likely due to Uremia Monitor renal function Reorient frequently minimize delirium Improved Hypokalemia Replete electrolytes as needed Pleural effusion: H/O B/L pleural effusions requiring thoracentesis in the recent past Continue diuresis as above Anemia of CKD (chronic kidney disease): Hgb: 11.3 Monitor H/O Lymphoma H/O Myelodysplastic syndrome As per records DVT Px: Coumadin SCDs Code Status Full code Disposition Lives at home with his son PT/OT prior to discharge Admission and Anticipated Discharge Date Admission Date: August 14, 2021 Subjective Patient is seen and examined at bedside States feeling tired No hemoptysis today Dyspnea much improved Discussed with Nephrology today Denies chest pain, dizziness, nausea, abdominal pain Cr, Hb stable BP relatively low Review of Systems Review of Systems: All systems reviewed & are unremarkable except as noted in Subjective Physical Exam Physical Exam: Physical Exam: Vitals signs as noted above General Appearance:Moderately built and nourished, ill appearing, no apparent distress Head: normocephalic, Atraumatic Eyes: normal inspection, EOMI Neck: supple, Trachea midline Respiratory/Chest: Decreased breath sounds, CTA Cardiovascular: S1, S2, + murmur Abdomen/GI:Soft, Non tender, Bowel sounds present Extremities/Musculoskeletal:normal inspection, no edema Neurologic/Psych:AAOX3, grossly no focal neurological deficits Skin: normal color, warm Results & Data Results & Data ([facility]) Vital Signs (Past 12 Hours) Vital Signs Temp Pulse Resp BP Pulse Ox 08/24/21 12:40 67 96/59 L 08/24/21 12:07 36.6 C 67 18 109/64 96 08/24/21 11:14 65 18 92 08/24/21 10:09 89/52 L 08/24/21 10:08 84/46 L 08/24/21 09:30 67 95/64 L 89 L 08/24/21 07:36 36.5 C 67 18 110/65 92 08/24/21 07:14 73 18 90 Laboratory Results Short CBC 08/24/21 Range/Units 07:03 Hgb 11.3 L (14.0-18.0) g/dL Hct 34.9 L (42-52) % BMP 08/24/21 06:58 Sodium 145 Potassium 3.9 Chloride 101 Carbon Dioxide 35 H BUN 88 H Creatinine 2.59 H Glucose 88 Calcium 8.6 Liver Function 08/24/21 Range/Units 06:58 Total Bilirubin 3.4 H (0.2-1.0) mg/dl AST 60 H (13-39) U/L ALT 198 H (7-52) U/L Alkaline Phosphatase 92 (34-104) U/L Albumin 3.5 (3.4-5.0) gm/dl
[2021-08-24] MEDS: TORSEMIDE 10 MG TAB PO SCH (17:16)
[2021-08-25] MEDS: LEVOTHYROXINE SODIUM 75 MCG TABLET PO SCH (06:04)
[2021-08-25 07:11] LABS: Hematocrit (blood only) 32.3 % (42-52); Hemoglobin 10.3 g/dL (14.0-18.0); Mean Corpuscular Hemoglobin 38.9 pg (25-34); Mean Corpuscular Hgb Conc 31.9 g/dL (32-36); Mean Corpuscular Volume 121.9 fL (80-100); Mean Platelet Volume 10.5 fL (7.4-10.4); Platelet Count 125 K/uL (130-400); RDW Standard Deviation 90.7 fL (36.4-46.3); Red Blood Count 2.65 M/uL (4.7-6.1); White Blood Count 8.76 K/uL (4.8-10.8)
[2021-08-25] MEDS: FORMOTEROL 20 MCG/2 ML VIAL NEB SCH ×2 (07:11→19:08)
[2021-08-25 07:34] LABS: Albumin Level 3.6 gm/dl (3.4-5.0); Bilirubin Direct 1.4 mg/dl (0-0.2); Bilirubin,Total 3.6 mg/dl (0.2-1.0); Calcium 9.2 mg/dl (8.5-10.1); Creatinine Clr Calc Pharmacy 21.3 ml/min; Est GFR (African American) 28.2 ml/min; Est GFR (Non-African American) 24.3 ml/min; INR 1.6 (0.9-1.1); Potassium 4.1 mmol/L (3.5-5.1); Prothrombin Time 16.8 Seconds (9.0-12.0); Total Protein 5.8 gm/dl (6.0-8.3)
[2021-08-25] MEDS: CYANOCOBALAMIN (B-12) 500 MCG TABLET PO SCH (08:21)
[2021-08-25] MEDS: CHOLECALCIFEROL 1,000 UNITS 25 MCG TAB PO SCH (08:21)
[2021-08-25] MEDS: PYRIDOXINE HCL 50 MG TAB PO SCH ×2 (08:21→19:49)
[2021-08-25] MEDS: METOPROLOL SUCC 25MG EXT REL TAB PO SCH ×2 (08:22→19:48)
[2021-08-25] MEDS: FLUTICASONE PROPIONATE NA SPR 16 GM BTL NAE SCH (08:22)
[2021-08-25] MEDS: POTASSIUM CHLORIDE CRTAB 20 MEQ TABCR PO SCH ×2 (08:22→19:48)
[2021-08-25] MEDS: AZELASTINE HCL 0.1% NASAL 200 SPRAYS/27,400 MCG BTL NAE SCH ×2 (08:22→19:47)
[2021-08-25] MEDS: TORSEMIDE 10 MG TAB PO SCH ×2 (08:22→17:08)
--- NOTE | 2021-08-25 10:33 | Cardiology Progress Note ---
Date of Service August 25, 2021 Assessment & Plan (1) Chronic heart failure with reduced ejection fraction and diastolic dys function: (2) Cardiorenal syndrome with renal failure: Plan: (1) Chronic heart failure with reduced ejection fraction and diastolic dysfunction due to ischemic cardiomyopathy and (2) LBBB (left bundle branch block), with (3) CKD stage 4 (chronic kidney disease) / cardiorenal syndrome and moderate aortic stenosis: -Nephrology input noted and appreciated , continue oral torsemide 10 mg PO BID , with hold for SBP < 100 mm Hg. Spironolactone on hold for hypotension, systolic blood pressure 80s to 90s the last 2 days. -I have been following patient since 2020, and most notable finding today on my evaluation is generalized cachexia. -Continue metoprolol succinate, no ACEI/ ARB, or Entresto due to renal in sufficiency. (4) PAF (paroxysmal atrial fibrillation): -currently in SR. -H/o lower leg embolic event in the setting of pAF while off of anticoagulation. INR subtherapeutic 1.6. Increase Coumadin dose (5)Elevated LFTs -Likely due to congestive hepatopathy Statin and amiodarone on hold. Great discussion with regards to palliative care. Patient has had multiple prolonged hospital stays in the last few months. I am concerned that he has reached end-stage disease. Admission and Anticipated Discharge Date Admission Date: August 14, 2021 Subjective Patient seen in follow-up of congestive heart failure, ischemic cardiomyopathy, cardiorenal syndrome. Lying comfortably in bed, alert and talkative and knows what day today is, ongoing generalized weakness noted. I have yet to see him in the bedside chair-the last 3 days. Telemetry at present reveals sinus rhythm at 60 bpm, biventricular pacing. He had reverted to atrial fibrillation yesterday and overnight from 1515 on 08/25/2019 22-7 50 7 AM and 08/25/2021. Review of Systems Review of Systems: Review of Systems: See HPI for pertinent positives. All other 10 point review of systems are negative. Physical Exam Constitutional: + cachectic Respiratory: normal respiratory effort, lungs clear to auscultation Cardiovascular: Rate/Rhythm: regular rhythm Heart Sounds: + murmur (II//) Extremities: no edema Gastrointestinal (Abdomen): normal bowel sounds, soft, nontender, no hepatosplenomegaly Skin: + ecchymosis (severeal areas of superficial ecchymosis) Neurologic: PERRL, EOMI, accommodation nl, no face palsy, no dysarthria Results & Data ([facility]) Vital Signs (Past 12 Hours) Vital Signs Temp Pulse Pulse Resp BP Pulse Ox 08/25/21 07:55 36.5 C 87 15 85/60 L 96 08/25/21 03:00 36.6 C 91 H 20 132/84 95 08/24/21 23:52 96 H 08/24/21 22:59 37.1 C 100 H 17 91/62 L 94 Laboratory Results Creatinine improved to 2.42, having been 2.59 yesterday, and peaked at 4.5 on 08/20/2021 INR has been supratherapeutic earlier this hospital stay, continues to trend down, 1.6 today
--- NOTE | 2021-08-25 10:37 | Communication Note ---
Date of Service: August 25, 2021 Attempted to reach son, Grey, by phone to provide update, but was not able to connect with him.
[2021-08-25] MEDS ORDERED: WARFARIN SOD 5 MG TAB PO ONE (11:00)
--- NOTE | 2021-08-25 11:43 | Nephrology Progress Note ---
Date of Service August 25, 2021 Assessment & Plan (1) CKD (chronic kidney disease) stage 4, GFR 15-29 ml/min: Plan: advanced and progressive CKD stage IV with former baseline creatinine in 2's earlier this year but recently more around 4, though some improvement past few days, his renal function fluctuates with diuretic use. He has been somewhat noncompliant with diuretic dosing as OP at times. Was on 40 of torsemide when he saw me in June which was increased by cardiology, not sure how much he was taking before this admission. monoclonic jerks may reflect uremia. >>his renal function has improved w/ small cutback on diuretic, however even before scaling back his pl edema as above was worsening; increased diuretics 08/23 w/ marked success at volume removal but now a bit more hypotensive than his already hypotensive baseline -keep spironolactone on hold -cont lowered torsemide back to 10 mg bid w/ hold parameters -Input and output Daily BMP > repeat if need to replete K -he is on massive K doses but tolerates >> no extra repletion indicated today b ut likely to have to lower supplement doses soon 2 g sodium diet, 1.5L FR to continue -not a dialysis candidate d/t cardiac issues/hypotension -continue del rosario for now (2) Chronic heart failure with reduced ejection fraction and diastolic dysfunction: Plan: As above (3) Pulmonary edema: Plan: improving on 08/23 XR > he is 5.5 kg negative 08/22-08/25 -conservative/external measures/aggressive pulmonary toilet; from HF Admission and Anticipated Discharge Date Admission Date: August 14, 2021 Subjective no interval clinical events. up in chair when I saw him 1400; tired as at previous exams; no change in breathing Review of Systems Review of Systems: All systems reviewed & are unremarkable except as noted in Subjective Physical Exam Constitutional: well developed, well nourished, + frail appearing (up in chair on RA) and cooperative; no acute distress Eyes: EOM intact bilaterally ENMT: Ears: no external ear abnormality Nose: no external nose abnormality Mouth: + dry oral mucous membranes Neck: no nuchal rigidity Respiratory: normal respiratory effort Auscultation: + diminished lung sounds Cardiovascular: Rate/Rhythm: regular rate and regular rhythm Heart Sounds: + murmur Extremities: + edema (trace/minimal) Gastrointestinal (Abdomen): Inspection/Auscultation: normal bowel sounds Percussion/Palpation: abdomen soft; abdomen nontender Musculoskeletal: Extremities: + abnormal strength Skin: no rashes, warm and dry Neurologic: carrillo, fluent if limited speech, myoclonic jerks Psychiatric: Orientation: oriented to person and oriented to place Genitourinary: del rosario w/ ample urine Results & Data ([facility]) Vital Signs (Past 12 Hours) Vital Signs Temp Pulse Pulse Resp BP Pulse Ox 08/25/21 07:55 36.5 C 87 15 85/60 L 96 08/25/21 03:00 36.6 C 91 H 20 132/84 95 08/24/21 23:52 96 H Laboratory Results 08/25/21 06:44 08/25/21 06:44
--- NOTE | 2021-08-25 13:46 | Hospitalist Progress Note ---
Date of Service August 25, 2021 Assessment & Plan (1) Acute and chronic respiratory failure with hypoxia: Plan: 81 yr male with H/O HTN, chronic HFrEF, EF 20-25% on echo 2020, s/p ICD, ventricular tachycardia, LBBB, moderate aortic stenosis, CKD IV, arterial t hrombosis, chronic anemia, pleural effusions, lymphoma treated with chemotherapy, myelodysplastic syndrome and other problems listed below presented to ER with complaint of shortness of breath and productive cough, rhinorrhea x 1 day. Recent h/o hospitalization for acute on chronic HFrEF, pleural effusions s/p bilateral thoracentesis, ICD placement on 06/15/2021 Acute on chronic respiratory failure with hypoxia secondary to bilateral pneumonia Acute Kidney Injury on CKD IV, likely ATN Acute on chronic CHF, systolic and Diastolic H/O Ischemic cardiomyopathy, EF 25 to 30%, S/P AICD placement --CXR: Possible tiny bilateral pleural effusions, decreased from prior exam. Previously noted airspace opacities have resolved. There is mild pulmonary edema. --ECHO 05/15/2021: EF: 25-30%, large sized apical, septal, anterior septal, anterior and lateral wall motion abnormality with hypokinesis to akinesis of the segments. Mild diffuse right ventricular hypokinesis, moderate mitral regurgitation, mild to moderate tricuspid regurgitation, mild aortic valve stenosis, severe pulmonary hypertension, grade 2 diastolic dysfunction --Sputum culture negative --Blood cultures negative to date Empirically received cefepime and doxycycline for 2 days and then cefuroxime and doxycycline-Completed course Repeat CXR showed moderate pulmonary edema and bilateral pleural effusions R > L Appreciate pulmonology recommendations Needs repeat chest x-ray in 4 to 6 weeks Continue formoterol and Nebs PRN Was on iv Lasix 80 mg BID now transitioned to Torsemide Metolazone discontinued Spironolactone on hold. Nephrology and Vehicle Delivery Worker on board. Recommendations appreciated Continue fluid restriction, low salt diet Monitor volume status closely Hemoptysis Now resolved ASA still on hold CXR on 08/23/21 showed improvement in the pulmonary edema, small bilateral pleural effusions, and right basilar densities Warfarin had been resumed. Elevated LFTs Bilirubinemia AST/ALT significantly increased to 2000s/1000s Normal alkaline phosphatase --Liver US: Limited examination due to overlying bowel gas. Increased echogenicity of the liver. Cholelithiasis with no ultrasound evidence for acute cholecystitis.Increase fluid over the dome of the liver characteristic of increased ascites. --Portal Vein USD:No portal vein thrombosis. --Hepatitis Panel: Negative Elevated LFTs likely etiology to be congestive hepatopathy, less likely DILI Amiodarone, stain held. Will be DCed upon discharge as well Avoid all hepatotoxic agents as able LFTs improving Paroxysmal atrial fibrillation Current paced rhythm Tele showed was in Afib till around 7;50am this morning INR supratherapeutic at 6.6 on presentation Continue metoprolol 25 mg twice daily Appreciate cardiology input Monitor INR: 3.5>2.9>2.3>1.8 >1.6 Continue warfarin Acute Metabolic Encephalopathy Has intermittent lethargy Likely due to Uremia Monitor renal function Reorient as needed Improved Hypokalemia Replete electrolytes as needed Pleural effusion: H/O B/L pleural effusions requiring thoracentesis in the recent past Continue diuresis as above Anemia of CKD (chronic kidney disease): Hgb: 10.3 Monitor H/O Lymphoma H/O Myelodysplastic syndrome As per records DVT Px: Warfarin SCDs Code Status Full code Disposition Lives at home with his son PT/OT recommends SNF Palliative on board for ongoing GOC. Meeting planned for tomorrow Called son and updated him Admission and Anticipated Discharge Date Admission Date: August 14, 2021 Subjective Patient seen and examined. Patient reports weakness and malaise. Reported some nausea earlier. Denied any headache, dizziness Denied chest pain, cough, shortness of breath Denies any abdominal pain, vomiting, diarrhea Denies fevers and chills Physical Exam Constitutional: + well hydrated; no acute distress thin Eyes: PERRL, conjunctivae normal, anicteric sclerae ENMT: external ear and nose normal, oropharynx normal Respiratory: normal respiratory effort, lungs clear to auscultation Cardiovascular: Rate/Rhythm: regular rate and regular rhythm Heart Sounds: + murmur S1 S2 Gastrointestinal (Abdomen): normal bowel sounds, soft, nontender, no hepatosplenomegaly Neurologic: PERRL, EOMI, accommodation nl, no face palsy, no dysarthria Psychiatric: A+Ox3, euthymic affect Results & Data Results & Data ([facility]) Vital Signs (Past 12 Hours) Vital Signs Temp Pulse Resp BP Pulse Ox 08/25/21 11:43 36.5 C 68 16 98/65 L 95 03/16/22 07:55 36.5 C 87 15 85/60 L 96 08/25/21 03:00 36.6 C 91 H 20 132/84 95 Laboratory Results Abnormal lab results 08/25/21 08/25/21 08/25/21 Range/Units 06:44 06:44 06:44 RBC 2.65 L (4.7-6.1) M/uL Hgb 10.3 L (14.0-18.0) g/dL Hct 32.3 L (42-52) % MCV 121.9 H (80-100) fL MCH 38.9 H (25-34) pg MCHC 31.9 L (32-36) g/dL RDW Std Deviation 90.7 H (36.4-46.3) fL RDW Coeff of Geovanni 20.0 H (11.5-14.5) % Plt Count 125 L (130-400) K/uL MPV 10.5 H (7.4-10.4) fL PT 16.8 H (9.0-12.0) Seconds INR 1.6 H (0.9-1.1) Carbon Dioxide 35 H (21-32) mmol/L BUN 92 H (6-23) mg/dl Creatinine 2.42 H (0.6-1.4) mg/dl BUN/Creatinine Ratio 38.0 H (10-20) Total Bilirubin 3.6 H (0.2-1.0) mg/dl Direct Bilirubin 1.4 H (0-0.2) mg/dl AST 55 H (13-39) U/L ALT 164 H (7-52) U/L Total Protein 5.8 L (6.0-8.3) gm/dl
[2021-08-26] MEDS: LEVOTHYROXINE SODIUM 75 MCG TABLET PO SCH (04:38)
[2021-08-26 07:42] LABS: INR 1.8 (0.9-1.1); Prothrombin Time 18.2 Seconds (9.0-12.0)
[2021-08-26 07:58] LABS: Albumin Level 3.3 gm/dl (3.4-5.0); Bilirubin Direct 1.3 mg/dl (0-0.2); Bilirubin,Total 3.3 mg/dl (0.2-1.0); Creatinine Clr Calc Pharmacy 21.1 ml/min; Est GFR (African American) 28.3 ml/min; Est GFR (Non-African American) 24.4 ml/min; Potassium 3.8 mmol/L (3.5-5.1); Total Protein 5.3 gm/dl (6.0-8.3)
[2021-08-26] MEDS: CHOLECALCIFEROL 1,000 UNITS 25 MCG TAB PO SCH (09:27)
[2021-08-26] MEDS: AZELASTINE HCL 0.1% NASAL 200 SPRAYS/27,400 MCG BTL NAE SCH ×2 (09:27→22:05)
[2021-08-26] MEDS: CYANOCOBALAMIN (B-12) 500 MCG TABLET PO SCH (09:28)
[2021-08-26] MEDS: FLUTICASONE PROPIONATE NA SPR 16 GM BTL NAE SCH (09:28)
[2021-08-26] MEDS: FORMOTEROL 20 MCG/2 ML VIAL NEB SCH ×2 (09:29→23:52)
[2021-08-26] MEDS: METOPROLOL SUCC 25MG EXT REL TAB PO SCH ×2 (09:30→22:03)
[2021-08-26] MEDS: TORSEMIDE 10 MG TAB PO SCH ×2 (09:31→15:44)
[2021-08-26] MEDS: POTASSIUM CHLORIDE CRTAB 20 MEQ TABCR PO SCH ×2 (09:31→22:05)
[2021-08-26] MEDS: PYRIDOXINE HCL 50 MG TAB PO SCH ×2 (09:32→22:04)
--- NOTE | 2021-08-26 10:38 | Cardiology Progress Note ---
Date of Service August 26, 2021 Assessment & Plan (1) Chronic heart failure with reduced ejection fraction and diastolic dys function: (2) Cardiorenal syndrome with renal failure: Plan: (1) Chronic heart failure with reduced ejection fraction and diastolic dysfunction due to ischemic cardiomyopathy and (2) LBBB (left bundle branch block), with (3) CKD stage 4 (chronic kidney disease) / cardiorenal syndrome and moderate aortic stenosis: -Nephrology input noted and appreciated , continue oral torsemide 10 mg PO BID , with holds for SBP < 100 mm Hg. Spironolactone on hold for hypotension, systolic blood pressure 80s to 90s the last 2 days. -Continue metoprolol succinate, no ACEI/ ARB, or Entresto due to renal insufficiency. (4) PAF (paroxysmal atrial fibrillation): -currently in SR. -H/o lower leg embolic event in the setting of pAF while off of anticoagulation. INR subtherapeutic 1.8 Coumadin dose increased on 08/25/2021. Goal INR 2-3. Hold off on bridge therapy given risks of bleeding. (5)Elevated LFTs -Likely due to congestive hepatopathy Statin and amiodarone on hold. Great discussion with regards to palliative care. Patient has had multiple prolonged hospital stays in the last few months. I am concerned that he has reached end-stage disease. Admission and Anticipated Discharge Date Admission Date: August 14, 2021 Subjective Patient seen in follow-up of congestive heart failure. Lethargy noted. No complaints otherwise. Sinus rhythm with ventricular pacing in the 60s observed on telemetry. Physical Exam Constitutional: + cachectic Respiratory: normal respiratory effort, lungs clear to auscultation Cardiovascular: Rate/Rhythm: regular rhythm Heart Sounds: + murmur (II//) Extremities: no edema Gastrointestinal (Abdomen): normal bowel sounds, soft, nontender, no hepatosplenomegaly Skin: + ecchymosis (severeal areas of superficial ecchymosis) Neurologic: PERRL, EOMI, accommodation nl, no face palsy, no dysarthria Results & Data ([facility]) Vital Signs (Past 12 Hours) Vital Signs Temp Pulse Pulse Resp BP Pulse Ox 08/26/21 08:00 36.8 C 74 102/63 96 08/26/21 04:28 36.5 C 66 20 80/49 L 94 08/25/21 23:34 36.6 C 67 16 99/59 L 93 Laboratory Results Cardiac Enzymes 08/26/21 Range/Units 06:57 AST 47 H (13-39) U/L Coagulation 08/26/21 Range/Units 06:57 PT 18.2 H (9.0-12.0) Seconds Comprehensive Metabolic Panel 08/26/21 Range/Units 06:57 Sodium 144 (136-145) mmol/L Potassium 3.8 (3.5-5.1) mmol/L Chloride 100 (98-107) mmol/L Carbon Dioxide 36 H (21-32) mmol/L BUN 94 H (6-23) mg/dl Creatinine 2.41 H (0.6-1.4) mg/dl Glucose 87 (70-99(Fasting)) mg/dl Calcium 9.0 (8.5-10.1) mg/dl Direct Bilirubin 1.3 H (0-0.2) mg/dl AST 47 H (13-39) U/L ALT 123 H (7-52) U/L Alkaline Phosphatase 83 (34-104) U/L Total Protein 5.3 L (6.0-8.3) gm/dl Albumin 3.3 L (3.4-5.0) gm/dl Intake and Output 08/25/21 08/26/21 08/26/21 22:59 06:59 14:59 Output Total 851 / 2351 850 / 2351 Balance -851 / -2211 -850 / -2211 Output: Urine Amount (Catheter) 850 / 2350 850 / 2350 Anthony/Indwelling 850 / 2350 850 / 2350 # Bowel Movements Other: Weight 60.9 kg 60.9 kg Weight Measurement Method Standing Scale Built in [facility] Patient Weight 08/27/21 06:59 Weight 60.9 kg
--- NOTE | 2021-08-26 10:52 | Palliative Care Progress Note ---
Date of Service August 26, 2021 Assessment & Plan (1) Palliative care encounter: Plan: Mr. Toledo had just finished his lunch when I visited with him. As previously mentioned, I was able to hold a few conversations with him regarding his cond ition. He does express general understanding about his poor heart and kidney function; however, like I mentioned, it is difficult to understand the complexity of his illness. He does express his biggest concern about dying is leaving Zaira, his significant other, behind. Family meeting held on the phone with the patients sons and daughter; Grey ([phone]), Elias ([phone]), Laney ([phone]), and Javier Mares ([phone]). We reviewed his most recent and previous hospitalizations with a large focus on his CHF and worsening EF of 20-25%, along with his worsening renal failure. We discussed that it appears we are nearing the best possible scenario regarding maximizing his optimal functional and medicinal status. We reviewed his code status and the unlikelihood of him surviving CPR/ intubation, let alone leading to a meaningful recovery. All were in agreement to transition to DNR/DNI, which has been ordered in the computer to reflect the conversation. We spent a great deal of time discussing placement options;including the following: * Home with Hospice * SNF for short term rehab and a transition either home or permanent placement with hospice * ACF for acute rehab and transition either to SNF with hospice vs home with hospice. The family would like to discuss with Zaira who lives with the patient to determine what her comfort level is. They also want to talk with their Dad; knowing they will ultimately need to help with making the final decision. Ok from my perspective to transition out of PCU status and DC heart monitor. All of the above discussed with the Hospitalist, Dr. Lagunas, and Jamila the manager supply chain. Case management to follow up regarding placement preference and opportunities for patient. PT/OT is seeing the patient. (2) CKD (chronic kidney disease) stage 4, GFR 15-29 ml/min: Plan: Baseline creatinine is 3.0. Has stabilized and most recent creatinine is 2.54, down from 4.5. Per review from Nephrology notes, patient is a poor candidate for HD due to poor cardiac complications/compliance. Confirmed with family on the phone that the patient and family would not want to pursue hemodialysis, knowing he is a poor candidate. (3) CLL (chronic lymphocytic leukemia): Plan: Pt is increasingly lethargic at times with worsening cachexia compared to Palliative Medicine's encounter in May 2021. Transition to focus on conservative management of care; however, remain supportive while admitted. (4) Heart failure: Plan: Pt with worsening CHF. Most current EF 20-25% in comparison with last ECHO. Being followed by Cardiology here who is in support of a transition to a more conservative approach to his care. Pt does have an ICD and after discussion with family, they would like to deactivate the ICD while he is admitted here to avoid any unwanted ICD activation. Hospitalist will contact [employer]. (5) Acute and chronic respiratory failure with hypoxia: Plan: Previous admission 05/25-06/22. Pt had a thoracentesis with 2L removed during last admission. Small inoculated pleural effusions this admission, not requiring a thorac entesis. Discussed pleural effusions on the phone with family. All in agreement that they do not want ICU level of care in the event of his decline. (6) POLST (Physician Orders for Life-Sustaining Treatment): Plan: POLST completed over the phone with all siblings. Information reflective in the document includes: DNR/DNI, Comfort Measures Only, trial abx, No artificial nutrition/hydration. A copy of the POLST form and the original was placed on the chart. Admission and Anticipated Discharge Date Admission Date: August 14, 2021 Subjective Pt evaluated for follow up - was able to have a good conversation with him, of course with some limited complexity understanding. Family meeting held today over the phone with 4 siblings. Pt sitting in his bed, just finished eating lunch, ate relatively well. Working with PT. Please see A/P for further details. Review of Systems Review of Systems: [place] [facility] Assessment Scale: Pain: 0/3 SOB: 0/3 on RA Depression: 0/3 Nausea: 0/3 Palliative Performance Scale: 30% Physical Exam Constitutional: + thin, + frail appearing and comfortable Neck: normal visual inspection Respiratory: does not use accessory muscles Auscultation: + crackles (expiratory) and + wheezes (expiratory ) Cardiovascular: Rate/Rhythm: regular rate and regular rhythm Heart Sounds: normal S1, normal S2 and + murmur Extremities: normal capillary refill; no edema Gastrointestinal (Abdomen): Inspection/Auscultation: abdomen normal to inspection Skin: normal turgor and + pallor Psychiatric: Orientation: alert, oriented to person and oriented to place Insight: good insight Judgement: good judgement Results & Data ([facility]) Vital Signs (Past 12 Hours) Vital Signs Temp Pulse Pulse Resp BP Pulse Ox 08/26/21 08:00 36.8 C 74 102/63 96 08/26/21 04:28 36.5 C 66 20 80/49 L 94 08/25/21 23:34 36.6 C 67 16 99/59 L 93 PG Care Time/CCT Total # of Minutes Spent Total Time Spent with Patient: Total time spent is greater than 50% in coordination of care (as documented) at patient's floor/unit and/or counseling patient: 45 minutes Coding Level of Care Code 79155 Subseq Hosp Care Lvl 3 Diagnoses Palliative care encounter Z51.5 CKD (chronic kidney disease) stage 4, GFR 15-29 ml/min N18.4 CLL (chronic lymphocytic leukemia) C91.10 Acute and chronic respiratory failure with hypoxia J96.21 POLST (Physician Orders for Life-Sustaining Treatment) Z78.9 Heart failure I50.9 Time Spent (min) 45
--- NOTE | 2021-08-26 12:04 | Hospitalist Progress Note ---
Date of Service August 26, 2021 Assessment & Plan (1) Acute and chronic respiratory failure with hypoxia: Plan: 81 yr male with H/O HTN, chronic HFrEF, EF 20-25% on echo 2020, s/p ICD, ventricular tachycardia, LBBB, moderate aortic stenosis, CKD IV, arterial t hrombosis, chronic anemia, pleural effusions, lymphoma treated with chemotherapy, myelodysplastic syndrome and other problems listed below presented to ER with complaint of shortness of breath and productive cough, rhinorrhea x 1 day. Recent h/o hospitalization for acute on chronic HFrEF, pleural effusions s/p bilateral thoracentesis, ICD placement on 06/15/2021 Acute on chronic respiratory failure with hypoxia secondary to bilateral pneumonia Acute Kidney Injury on CKD IV, likely ATN Acute on chronic CHF, systolic and Diastolic H/O Ischemic cardiomyopathy, EF 25 to 30%, S/P AICD placement --CXR: Possible tiny bilateral pleural effusions, decreased from prior exam. Previously noted airspace opacities have resolved. There is mild pulmonary edema. --ECHO 05/15/2021: EF: 25-30%, large sized apical, septal, anterior septal, anterior and lateral wall motion abnormality with hypokinesis to akinesis of the segments. Mild diffuse right ventricular hypokinesis, moderate mitral regurgitation, mild to moderate tricuspid regurgitation, mild aortic valve stenosis, severe pulmonary hypertension, grade 2 diastolic dysfunction --Sputum culture negative --Blood cultures negative to date Empirically received cefepime and doxycycline for 2 days and then cefuroxime and doxycycline-Completed course Repeat CXR showed moderate pulmonary edema and bilateral pleural effusions R > L Appreciate pulmonology recommendations Continue formoterol and Nebs PRN Was on iv Lasix 80 mg BID now transitioned to Torsemide Metolazone discontinued Spironolactone on hold. Nephrology and Resource Center Teacher on board. Recommendations appreciated Continue fluid restriction, low salt diet Monitor volume status closely Hemoptysis Now resolved ASA still on hold CXR on 08/23/21 showed improvement in the pulmonary edema, small bilateral pleural effusions, and right basilar densities Warfarin had been resumed. Elevated LFTs Bilirubinemia AST/ALT significantly increased to 2000s/1000s Normal alkaline phosphatase --Liver US: Limited examination due to overlying bowel gas. Increased echogenicity of the liver. Cholelithiasis with no ultrasound evidence for acute cholecystitis.Increase fluid over the dome of the liver characteristic of increased ascites. --Portal Vein USD:No portal vein thrombosis. --Hepatitis Panel: Negative Elevated LFTs likely etiology to be congestive hepatopathy, less likely DILI Amiodarone, stain held. Will be DCed upon discharge as well Avoid all hepatotoxic agents as able LFTs improving Paroxysmal atrial fibrillation Current paced rhythm Tele showed was in Afib till around 7;50am this morning INR supratherapeutic at 6.6 on presentation Continue metoprolol 25 mg twice daily Appreciate cardiology input Monitor INR: 3.5>2.9>2.3>1.8 >1.6>1.8 Continue warfarin Acute Metabolic Encephalopathy Has intermittent lethargy Likely due to Uremia Monitor renal function Reorient as needed Hypokalemia Replete electrolytes as needed Pleural effusion: H/O B/L pleural effusions requiring thoracentesis in the recent past Continue diuresis as above Anemia of CKD (chronic kidney disease): Last Hgb: 10.3 Monitor H/O Lymphoma H/O Myelodysplastic syndrome As per records DVT Px: Warfarin Disposition- Transfer to med/surg Lives at home with his son PT/OT recommends SNF Goals of care meeting was done by Palliative team with family today\ Family wants code status changed to DNR. They will discuss further with patient's partner regarding disposition However, they want to continue medical management but no CPR/intubation/HD/ICU level of care Discussed with Resource Center Teacher. Will work on deactivating ICD Admission and Anticipated Discharge Date Admission Date: August 14, 2021 Subjective Patient seen and examined. Patient reports weakness and malaise. Denied any headache, dizziness Denied chest pain, cough, shortness of breath Denies any nausea, abdominal pain, vomiting, diarrhea Denies fevers and chills Physical Exam Constitutional: + well hydrated; no acute distress Eyes: PERRL, conjunctivae normal, anicteric sclerae ENMT: external ear and nose normal, oropharynx normal Respiratory: normal respiratory effort, lungs clear to auscultation Cardiovascular: Rate/Rhythm: regular rate and regular rhythm Heart Sounds: + murmur S1 S2 Gastrointestinal (Abdomen): normal bowel sounds, soft, nontender, no hepatosplenomegaly Neurologic: PERRL, EOMI, accommodation nl, no face palsy, no dysarthria Alert and oriented to person and place Results & Data Results & Data ([facility]) Vital Signs (Past 12 Hours) Vital Signs Temp Pulse Pulse Resp BP Pulse Ox 08/26/21 08:00 36.8 C 74 102/63 96 08/26/21 04:28 36.5 C 66 20 80/49 L 94 Laboratory Results Abnormal lab results 08/26/21 08/26/21 Range/Units 06:57 06:57 PT 18.2 H (9.0-12.0) Seconds INR 1.8 H (0.9-1.1) Carbon Dioxide 36 H (21-32) mmol/L BUN 94 H (6-23) mg/dl Creatinine 2.41 H (0.6-1.4) mg/dl BUN/Creatinine Ratio 39.0 H (10-20) Total Bilirubin 3.3 H (0.2-1.0) mg/dl Direct Bilirubin 1.3 H (0-0.2) mg/dl AST 47 H (13-39) U/L ALT 123 H (7-52) U/L Total Protein 5.3 L (6.0-8.3) gm/dl Albumin 3.3 L (3.4-5.0) gm/dl
[2021-08-26] MEDS: WARFARIN SOD 5 MG TAB PO SCH (15:44)
--- NOTE | 2021-08-26 15:58 | Communication Note ---
Date of Service: August 26, 2021 Palliative care input noted and appreciated. Case reviewed with Dr Lagunas. Pt and family have elected to have ICD treatment for ventricular arrhythmias d eactivated. I have made arrangements for this with [employer].
--- NOTE | 2021-08-26 18:47 | Nephrology Progress Note ---
Date of Service August 26, 2021 Assessment & Plan (1) CKD (chronic kidney disease) stage 4, GFR 15-29 ml/min: Plan: advanced and progressive CKD stage IV with former baseline creatinine in 2's earlier this year but recently more around 4, though some improvement past few days, his renal function fluctuates with diuretic use. He has been somewhat noncompliant with diuretic dosing as OP at times. Was on 40 of torsemide when he saw me in June which was increased by cardiology, not sure how much he was taking before this admission. myoclonic jerks may reflect uremia. >>his renal function has improved w/ small cutback on diuretic, however even before scaling back his plm edema was worsening; increased diuretics 3/14 w/ marked success at volume removal but now a bit more hypotensive than his already hypotensive baseline -keep spironolactone on hold -cont lowered torsemide back to 10 mg bid w/ hold parameters -Input and output Daily BMP > repeat if need to replete K -he is on massive K doses but tolerates >> no extra repletion indicated today but likely to have to lower supplement doses soon 2 g sodium diet, 1.5L FR to continue -not a dialysis candidate d/t cardiac issues/hypotension -agree w/ removing del rosario Admission and Anticipated Discharge Date Admission Date: August 14, 2021 Subjective seen on rounds about 1815 after transition off of monitored floor; pt on RA, del rosario out; ROS limited by pt fatigue but denies worsening sob, pain, n/v Review of Systems Review of Systems: All systems reviewed & are unremarkable except as noted in Subjective Physical Exam Constitutional: well developed, well nourished, + cachectic, + frail appearing (on RA) and cooperative; no acute distress Eyes: EOM intact bilaterally ENMT: Ears: no external ear abnormality Nose: no external nose abnormality Mouth: + dry oral mucous membranes Neck: no nuchal rigidity Respiratory: normal respiratory effort Auscultation: + diminished lung sounds and + crackles (thick and fine on R > L) Cardiovascular: Rate/Rhythm: regular rate and regular rhythm Heart Sounds: + murmur Extremities: no edema Gastrointestinal (Abdomen): Inspection/Auscultation: normal bowel sounds Percussion/Palpation: abdomen soft; abdomen nontender Musculoskeletal: Extremities: + abnormal strength Skin: no rashes, warm and dry Neurologic: carrillo, occasional myoclonic jerks; fluent speech Psychiatric: Orientation: oriented to person and oriented to place Results & Data ([facility]) Vital Signs (Past 12 Hours) Vital Signs Temp Pulse Pulse Resp BP BP Pulse Ox 08/26/21 17:17 36.5 C 65 18 114/60 99 08/26/21 14:00 36.5 C 69 22 119/72 96 08/26/21 12:14 36.4 C L 61 16 109/68 89 L 08/26/21 08:00 36.8 C 74 102/63 96 Laboratory Results 08/25/21 06:44 08/26/21 06:57
[2021-08-27] MEDS: ACETAMINOPHEN 325 MG TAB PO PRN ×4 (03:33→23:35)
[2021-08-27 05:59] LABS: Hematocrit (blood only) 28.6 % (42-52); Hemoglobin 9.3 g/dL (14.0-18.0); Mean Corpuscular Hemoglobin 38.6 pg (25-34); Mean Corpuscular Hgb Conc 32.5 g/dL (32-36); Mean Corpuscular Volume 118.7 fL (80-100); Mean Platelet Volume 10.3 fL (7.4-10.4); Platelet Count 124 K/uL (130-400); RDW Coefficient of Variation 18.6 % (11.5-14.5); RDW Standard Deviation 80.9 fL (36.4-46.3); Red Blood Count 2.41 M/uL (4.7-6.1); White Blood Count 7.75 K/uL (4.8-10.8)
[2021-08-27] MEDS: LEVOTHYROXINE SODIUM 75 MCG TABLET PO SCH (06:22)
[2021-08-27 06:38] LABS: BUN Creatinine Ratio 39.9 (10-20); Calcium 8.7 mg/dl (8.5-10.1); Creatinine Clr Calc Pharmacy 22.8 ml/min; Est GFR (African American) 31.1 ml/min; Est GFR (Non-African American) 26.8 ml/min; Potassium 3.7 mmol/L (3.5-5.1)
[2021-08-27] MEDS: FORMOTEROL 20 MCG/2 ML VIAL NEB SCH ×4 (07:48→20:05)
[2021-08-27] MEDS: METOPROLOL SUCC 25MG EXT REL TAB PO SCH ×2 (08:36→20:24)
[2021-08-27] MEDS: AZELASTINE HCL 0.1% NASAL 200 SPRAYS/27,400 MCG BTL NAE SCH ×2 (08:37→20:24)
[2021-08-27] MEDS: CHOLECALCIFEROL 1,000 UNITS 25 MCG TAB PO SCH (08:38)
[2021-08-27] MEDS: CYANOCOBALAMIN (B-12) 500 MCG TABLET PO SCH (08:38)
[2021-08-27] MEDS: FLUTICASONE PROPIONATE NA SPR 16 GM BTL NAE SCH (08:39)
[2021-08-27] MEDS: PYRIDOXINE HCL 50 MG TAB PO SCH ×2 (09:09→20:25)
--- NOTE | 2021-08-27 09:21 | Nephrology Progress Note ---
Date of Service August 27, 2021 Assessment & Plan (1) CKD (chronic kidney disease) stage 4, GFR 15-29 ml/min: Plan: advanced and progressive CKD stage IV with former baseline creatinine in 2's earlier this year but recently more around 4, though some improvement past few days, his renal function fluctuates with diuretic use. He has been somewhat noncompliant with diuretic dosing as OP at times. Was on 40 of torsemide when he saw me in June which was increased by cardiology, not sure how much he was taking before this admission. myoclonic jerks may reflect uremia. >>his renal function has improved w/ small cutback on diuretic, however even before scaling back his plm edema was worsening; increased diuretics 3/ w/ marked success at volume removal but now a bit more hypotensive than his already hypotensive baseline -keep spironolactone on hold -cont lowered torsemide back to 10 mg bid w/ hold parameters -Input and output for now Daily BMP > repeat if need to replete K -he is on massive K doses but tolerates >> no extra repletion indicated today b ut likely to have to lower supplement doses soon 2 g sodium diet, 1.5L FR to continue -not a dialysis candidate d/t cardiac issues/hypotension -agree w/ removing del rosario He is transitioning to more conservative measures; will sign off; pls call if questions arise Admission and Anticipated Discharge Date Admission Date: August 14, 2021 Subjective evaluated late this afternoon; very tired; breathing bad if he moves at all. no voiding complaints; no torsemide given today d/t hold parameters for BP Review of Systems Review of Systems: All systems reviewed & are unremarkable except as noted in Subjective Physical Exam Constitutional: well developed, well nourished, + cachectic, + frail appearing (on RA) and comfortable; no acute distress Eyes: EOM intact bilaterally ENMT: Ears: no external ear abnormality Nose: no external nose abnormality Mouth: + dry oral mucous membranes Neck: no nuchal rigidity Respiratory: normal respiratory effort Auscultation: + diminished lung sounds and + crackles Cardiovascular: Rate/Rhythm: regular rate and regular rhythm Heart Sounds: + murmur Extremities: no edema Gastrointestinal (Abdomen): Inspection/Auscultation: normal bowel sounds Percussion/Palpation: abdomen soft; abdomen nontender Musculoskeletal: Extremities: + abnormal strength Skin: no rashes, warm and dry Neurologic: carrillo, limited speech, no tremor; jerks seem better today Psychiatric: Orientation: oriented to person and oriented to place Results & Data ([facility]) Vital Signs (Past 12 Hours) Vital Signs Temp Pulse Resp BP BP Pulse Ox 08/27/21 08:30 68 96/61 L 08/27/21 07:49 69 16 93 08/27/21 07:23 36.6 C 66 21 93/56 L 90/54 L 100 Laboratory Results 08/27/21 05:36 08/27/21 05:36
[2021-08-27] MEDS: POTASSIUM CHLORIDE CRTAB 20 MEQ TABCR PO SCH ×2 (10:38→20:24)
[2021-08-27] MEDS: TORSEMIDE 10 MG TAB PO SCH ×2 (10:39→17:26)
--- NOTE | 2021-08-27 16:48 | Hospitalist Progress Note ---
Date of Service August 27, 2021 Assessment & Plan (1) Acute and chronic respiratory failure with hypoxia: Plan: 81 yr male with H/O HTN, chronic HFrEF, EF 20-25% on echo 2020, s/p ICD, ventricular tachycardia, LBBB, moderate aortic stenosis, CKD IV, arterial t hrombosis, chronic anemia, pleural effusions, lymphoma treated with chemotherapy, myelodysplastic syndrome and other problems listed below presented to ER with complaint of shortness of breath and productive cough, rhinorrhea x 1 day. Recent h/o hospitalization for acute on chronic HFrEF, pleural effusions s/p bilateral thoracentesis, ICD placement on 06/15/2021 Acute on chronic respiratory failure with hypoxia secondary to bilateral pneumonia Acute Kidney Injury on CKD IV, likely ATN Acute on chronic CHF, systolic and Diastolic H/O Ischemic cardiomyopathy, EF 25 to 30%, S/P AICD placement --CXR: Possible tiny bilateral pleural effusions, decreased from prior exam. Previously noted airspace opacities have resolved. There is mild pulmonary edema. --ECHO 05/15/2021: EF: 25-30%, large sized apical, septal, anterior septal, anterior and lateral wall motion abnormality with hypokinesis to akinesis of the segments. Mild diffuse right ventricular hypokinesis, moderate mitral regurgitation, mild to moderate tricuspid regurgitation, mild aortic valve stenosis, severe pulmonary hypertension, grade 2 diastolic dysfunction --Sputum culture negative --Blood cultures negative to date Empirically received cefepime and doxycycline for 2 days and then cefuroxime and doxycycline-Completed course Repeat CXR showed moderate pulmonary edema and bilateral pleural effusions R > L Appreciate pulmonology recommendations Continue formoterol and Nebs PRN Was on iv Lasix 80 mg BID now transitioned to Torsemide Metolazone discontinued Spironolactone on hold. Nephrology and Projects Manager on board. Recommendations appreciated Continue fluid restriction, low salt diet Monitor volume status closely Hemoptysis Now resolved ASA still on hold CXR on 08/23/21 showed improvement in the pulmonary edema, small bilateral pleural effusions, and right basilar densities Warfarin was initially held but resumed Elevated LFTs Bilirubinemia AST/ALT significantly increased to 2000s/1000s Normal alkaline phosphatase --Liver US: Limited examination due to overlying bowel gas. Increased echogenicity of the liver. Cholelithiasis with no ultrasound evidence for acute cholecystitis.Increase fluid over the dome of the liver characteristic of increased ascites. --Portal Vein USD:No portal vein thrombosis. --Hepatitis Panel: Negative Elevated LFTs likely etiology to be congestive hepatopathy, less likely DILI Amiodarone, stain held. Will be DCed upon discharge as well Avoid all hepatotoxic agents as able LFTs improving Paroxysmal atrial fibrillation Current paced rhythm Tele showed was in Afib till around 7;50am this morning INR supratherapeutic at 6.6 on presentation Continue metoprolol 25 mg twice daily Appreciate cardiology input Monitor INR: 3.5>2.9>2.3>1.8 >1.6>1.8 Continue warfarin Acute Metabolic Encephalopathy Has intermittent lethargy Likely due to Uremia Monitor renal function Reorient as needed Hypokalemia Replete electrolytes as needed Pleural effusion: H/O B/L pleural effusions requiring thoracentesis in the recent past Continue diuresis as above Anemia of CKD (chronic kidney disease): Last Hgb: 9.3 Monitor H/O Lymphoma H/O Myelodysplastic syndrome As per records Based on [facility] meeting with palliative team and family, patient is now DNR Per CM notes, family want dc to short term rehab and then home with eventual transition to hospice Continue medical care as above Admission and Anticipated Discharge Date Admission Date: August 14, 2021 Subjective Patient seen and examined. Patient reports weakness Denied any headache, dizziness Denied chest pain, cough, shortness of breath Denies any nausea, abdominal pain, vomiting, diarrhea Denies fevers and chills Physical Exam Constitutional: + ill appearing and + well hydrated; no acute distress Eyes: PERRL, conjunctivae normal, anicteric sclerae ENMT: external ear and nose normal, oropharynx normal Respiratory: Normal respiration, not in respiratory distress, diminished breath sounds lung bases Cardiovascular: Rate/Rhythm: regular rate and regular rhythm Heart Sounds: + murmur Gastrointestinal (Abdomen): normal bowel sounds, soft, nontender, no hepatosplenomegaly Neurologic: PERRL, EOMI, accommodation nl, no face palsy, no dysarthria AOx3 Results & Data Results & Data ([facility]) Vital Signs (Past 12 Hours) Vital Signs Temp Pulse Pulse Resp BP BP Pulse Ox 08/27/21 15:43 36.5 C 64 16 96/51 L 96 08/27/21 10:35 79 99/58 L 08/27/21 08:30 68 96/61 L 08/27/21 07:49 69 16 93 08/27/21 07:23 36.6 C 66 21 93/56 L 90/54 L 100 Laboratory Results Abnormal lab results 08/27/21 08/27/21 Range/Units 05:36 05:36 RBC 2.41 L (4.7-6.1) M/uL Hgb 9.3 L (14.0-18.0) g/dL Hct 28.6 L (42-52) % MCV 118.7 H (80-100) fL MCH 38.6 H (25-34) pg RDW Std Deviation 80.9 H (36.4-46.3) fL RDW Coeff of Geovanni 18.6 H (11.5-14.5) % Plt Count 124 L (130-400) K/uL Carbon Dioxide 33 H (21-32) mmol/L BUN 89 H (6-23) mg/dl Creatinine 2.23 H (0.6-1.4) mg/dl BUN/Creatinine Ratio 39.9 H (10-20)
[2021-08-27] MEDS: WARFARIN SOD 5 MG TAB PO SCH (17:57)
[2021-08-28] MEDS: LEVOTHYROXINE SODIUM 75 MCG TABLET PO SCH (05:40)
[2021-08-28] MEDS: FORMOTEROL 20 MCG/2 ML VIAL NEB SCH ×2 (07:27→18:53)
[2021-08-28 08:13] LABS: Hematocrit (blood only) 27.9 % (42-52); Hemoglobin 9.1 g/dL (14.0-18.0); Mean Corpuscular Hemoglobin 38.2 pg (25-34); Mean Corpuscular Hgb Conc 32.6 g/dL (32-36); Mean Corpuscular Volume 117.2 fL (80-100); Mean Platelet Volume 9.9 fL (7.4-10.4); Platelet Count 144 K/uL (130-400); RDW Coefficient of Variation 18.6 % (11.5-14.5); Red Blood Count 2.38 M/uL (4.7-6.1)
[2021-08-28 08:23] LABS: INR 2.2 (0.9-1.1); Prothrombin Time 22.4 Seconds (9.0-12.0)
[2021-08-28] MEDS: METOPROLOL SUCC 25MG EXT REL TAB PO SCH ×2 (08:27→20:15)
[2021-08-28] MEDS: TORSEMIDE 10 MG TAB PO SCH ×2 (08:28→16:26)
[2021-08-28 08:30] LABS: BUN Creatinine Ratio 38.2 (10-20); Calcium 8.6 mg/dl (8.5-10.1); Creatinine Clr Calc Pharmacy 24.9 ml/min; Est GFR (African American) 34.6 ml/min; Est GFR (Non-African American) 29.9 ml/min; Potassium 3.6 mmol/L (3.5-5.1)
[2021-08-28] MEDS: PYRIDOXINE HCL 50 MG TAB PO SCH ×2 (08:31→20:18)
[2021-08-28] MEDS: FLUTICASONE PROPIONATE NA SPR 16 GM BTL NAE SCH (08:31)
[2021-08-28] MEDS: CHOLECALCIFEROL 1,000 UNITS 25 MCG TAB PO SCH (08:31)
[2021-08-28] MEDS: CYANOCOBALAMIN (B-12) 500 MCG TABLET PO SCH (08:31)
[2021-08-28] MEDS: AZELASTINE HCL 0.1% NASAL 200 SPRAYS/27,400 MCG BTL NAE SCH ×2 (08:31→20:17)
[2021-08-28] MEDS: POTASSIUM CHLORIDE CRTAB 20 MEQ TABCR PO SCH ×2 (08:31→20:18)
--- NOTE | 2021-08-28 12:04 | Hospitalist Progress Note ---
Date of Service August 28, 2021 Assessment & Plan (1) Acute and chronic respiratory failure with hypoxia: Plan: 81 yr male with H/O HTN, chronic HFrEF, EF 20-25% on echo 2020, s/p ICD, ventricular tachycardia, LBBB, moderate aortic stenosis, CKD IV, arterial t hrombosis, chronic anemia, pleural effusions, lymphoma treated with chemotherapy, myelodysplastic syndrome and other problems listed below presented to ER with complaint of shortness of breath and productive cough, rhinorrhea x 1 day. Recent h/o hospitalization for acute on chronic HFrEF, pleural effusions s/p bilateral thoracentesis, ICD placement on 06/15/2021 Acute on chronic respiratory failure with hypoxia secondary to bilateral pneumonia Acute Kidney Injury on CKD IV, likely ATN Acute on chronic CHF, systolic and Diastolic H/O Ischemic cardiomyopathy, EF 25 to 30%, S/P AICD placement --CXR: Possible tiny bilateral pleural effusions, decreased from prior exam. Previously noted airspace opacities have resolved. There is mild pulmonary edema. --ECHO 05/15/2021: EF: 25-30%, large sized apical, septal, anterior septal, anterior and lateral wall motion abnormality with hypokinesis to akinesis of the segments. Mild diffuse right ventricular hypokinesis, moderate mitral regurgitation, mild to moderate tricuspid regurgitation, mild aortic valve stenosis, severe pulmonary hypertension, grade 2 diastolic dysfunction --Sputum culture negative --Blood cultures negative to date Empirically received cefepime and doxycycline for 2 days and then cefuroxime and doxycycline-Completed course Repeat CXR showed moderate pulmonary edema and bilateral pleural effusions R > L Appreciate pulmonology recommendations Continue formoterol and Nebs PRN Was on iv Lasix 80 mg BID now transitioned to Torsemide Metolazone discontinued Spironolactone on hold. Nephrology and Engineer And Geologist on board. Recommendations appreciated Continue fluid restriction, low salt diet Monitor volume status closely Hemoptysis Now resolved ASA still on hold CXR on 08/23/21 showed improvement in the pulmonary edema, small bilateral pleural effusions, and right basilar densities Warfarin was initially held but resumed Elevated LFTs Bilirubinemia AST/ALT significantly increased to 2000s/1000s Normal alkaline phosphatase --Liver US: Limited examination due to overlying bowel gas. Increased echogenicity of the liver. Cholelithiasis with no ultrasound evidence for acute cholecystitis.Increase fluid over the dome of the liver characteristic of increased ascites. --Portal Vein USD:No portal vein thrombosis. --Hepatitis Panel: Negative Elevated LFTs likely etiology to be congestive hepatopathy, less likely DILI Amiodarone, stain held. Will be DCed upon discharge as well Avoid all hepatotoxic agents as able LFTs improving Paroxysmal atrial fibrillation Current paced rhythm Tele showed was in Afib till around 7;50am this morning INR supratherapeutic at 6.6 on presentation Continue metoprolol 25 mg twice daily Appreciate cardiology input Monitor INR: 3.5>2.9>2.3>1.8 >1.6>1.8>2.2 Continue warfarin Acute Metabolic Encephalopathy Has intermittent lethargy Likely due to Uremia Monitor renal function Reorient as needed Hypokalemia Replete electrolytes as needed Pleural effusion: H/O B/L pleural effusions requiring thoracentesis in the recent past Continue diuresis as above Anemia of CKD (chronic kidney disease): Hgb: 9.1 Monitor H/O Lymphoma H/O Myelodysplastic syndrome As per records Based on [facility] meeting with palliative team and family, patient is now DNR Per CM notes, family want dc to short term rehab and then home with eventual transition to hospice. CM working on placement Continue medical care as above Admission and Anticipated Discharge Date Admission Date: August 14, 2021 Subjective Patient seen and examined. Patient reports weakness. Had eyes closed throughout evaluation but answered questions appropriately Denied any headache, dizziness Denied chest pain, cough, shortness of breath Denies any nausea, abdominal pain, vomiting, diarrhea Denies fevers and chills RN reported he gets occasional confusion Physical Exam Constitutional: + ill appearing and + well hydrated; no acute distress Eyes: PERRL, conjunctivae normal, anicteric sclerae ENMT: external ear and nose normal, oropharynx normal Respiratory: normal respiratory effort, lungs clear to auscultation Cardiovascular: Rate/Rhythm: regular rate and regular rhythm Heart Sounds: + murmur S1 S2 Gastrointestinal (Abdomen): normal bowel sounds, soft, nontender, no hepatosplenomegaly Neurologic: PERRL, EOMI, accommodation nl, no face palsy, no dysarthria Psychiatric: A+Ox3, euthymic affect Results & Data Results & Data ([facility]) Vital Signs (Past 12 Hours) Vital Signs Temp Pulse Pulse Resp BP Pulse Ox 08/28/21 07:30 36.7 C 64 20 90/53 L 93 08/28/21 07:28 68 17 91 Laboratory Results Abnormal lab results 08/28/21 08/28/21 08/28/21 Range/Units 07:59 07:59 07:59 RBC 2.38 L (4.7-6.1) M/uL Hgb 9.1 L (14.0-18.0) g/dL Hct 27.9 L (42-52) % MCV 117.2 H (80-100) fL MCH 38.2 H (25-34) pg RDW Std Deviation 79.0 H (36.4-46.3) fL RDW Coeff of Geovanni 18.6 H (11.5-14.5) % PT 22.4 H (9.0-12.0) Seconds INR 2.2 H (0.9-1.1) Carbon Dioxide 34 H (21-32) mmol/L BUN 78 H (6-23) mg/dl Creatinine 2.04 H (0.6-1.4) mg/dl BUN/Creatinine Ratio 38.2 H (10-20)
[2021-08-28] MEDS: WARFARIN SOD 5 MG TAB PO SCH (16:39)
[2021-08-29] MEDS: LEVOTHYROXINE SODIUM 75 MCG TABLET PO SCH (06:21)
[2021-08-29 07:35] LABS: Calcium 8.7 mg/dl (8.5-10.1); Creatinine Clr Calc Pharmacy 27.6 ml/min; Est GFR (African American) 39.2 ml/min; Est GFR (Non-African American) 33.9 ml/min; Potassium 3.8 mmol/L (3.5-5.1)
[2021-08-29] MEDS: FORMOTEROL 20 MCG/2 ML VIAL NEB SCH ×2 (07:37→19:11)
[2021-08-29] MEDS: CHOLECALCIFEROL 1,000 UNITS 25 MCG TAB PO SCH (08:54)
[2021-08-29] MEDS: AZELASTINE HCL 0.1% NASAL 200 SPRAYS/27,400 MCG BTL NAE SCH ×2 (08:54→21:21)
[2021-08-29] MEDS: PYRIDOXINE HCL 50 MG TAB PO SCH ×2 (08:55→21:24)
[2021-08-29] MEDS: CYANOCOBALAMIN (B-12) 500 MCG TABLET PO SCH (08:56)
[2021-08-29] MEDS: FLUTICASONE PROPIONATE NA SPR 16 GM BTL NAE SCH (08:56)
[2021-08-29] MEDS: TORSEMIDE 10 MG TAB PO SCH ×2 (09:08→16:55)
[2021-08-29] MEDS: METOPROLOL SUCC 25MG EXT REL TAB PO SCH ×2 (09:08→21:24)
[2021-08-29] MEDS: POTASSIUM CHLORIDE CRTAB 20 MEQ TABCR PO SCH ×2 (09:51→21:25)
--- NOTE | 2021-08-29 14:59 | Hospitalist Progress Note ---
Date of Service August 29, 2021 Assessment & Plan (1) Acute and chronic respiratory failure with hypoxia: Plan: 81 yr male with H/O HTN, chronic HFrEF, EF 20-25% on echo 2020, s/p ICD, ventricular tachycardia, LBBB, moderate aortic stenosis, CKD IV, arterial t hrombosis, chronic anemia, pleural effusions, lymphoma treated with chemotherapy, myelodysplastic syndrome and other problems listed below presented to ER with complaint of shortness of breath and productive cough, rhinorrhea x 1 day. Recent h/o hospitalization for acute on chronic HFrEF, pleural effusions s/p bilateral thoracentesis, ICD placement on 06/15/2021 Acute on chronic respiratory failure with hypoxia secondary to bilateral pneumonia Acute Kidney Injury on CKD IV, likely ATN Acute on chronic CHF, systolic and Diastolic H/O Ischemic cardiomyopathy, EF 25 to 30%, S/P AICD placement --CXR: Possible tiny bilateral pleural effusions, decreased from prior exam. Previously noted airspace opacities have resolved. There is mild pulmonary edema. --ECHO 05/15/2021: EF: 25-30%, large sized apical, septal, anterior septal, anterior and lateral wall motion abnormality with hypokinesis to akinesis of the segments. Mild diffuse right ventricular hypokinesis, moderate mitral regurgitation, mild to moderate tricuspid regurgitation, mild aortic valve stenosis, severe pulmonary hypertension, grade 2 diastolic dysfunction --Sputum culture negative --Blood cultures negative to date Empirically received cefepime and doxycycline for 2 days and then cefuroxime and doxycycline-Completed course Repeat CXR showed moderate pulmonary edema and bilateral pleural effusions R > L Appreciate pulmonology recommendations Continue formoterol and Nebs PRN Was on iv Lasix 80 mg BID now transitioned to Torsemide Metolazone discontinued Spironolactone on hold. Nephrology and Work From Home on board. Recommendations appreciated Continue fluid restriction, low salt diet Hemoptysis Now resolved ASA still on hold CXR on 08/23/21 showed improvement in the pulmonary edema, small bilateral pleural effusions, and right basilar densities Warfarin was initially held but resumed Elevated LFTs Bilirubinemia AST/ALT significantly increased to 2000s/1000s Normal alkaline phosphatase --Liver US: Limited examination due to overlying bowel gas. Increased echogenicity of the liver. Cholelithiasis with no ultrasound evidence for acute cholecystitis.Increase fluid over the dome of the liver characteristic of increased ascites. --Portal Vein USD:No portal vein thrombosis. --Hepatitis Panel: Negative Elevated LFTs likely etiology to be congestive hepatopathy, less likely DILI Amiodarone, stain held. Will be DCed upon discharge as well Avoid all hepatotoxic agents as able LFTs improving Paroxysmal atrial fibrillation Current paced rhythm Tele showed was in Afib till around 7;50am this morning INR supratherapeutic at 6.6 on presentation Continue metoprolol 25 mg twice daily Appreciate cardiology input Monitor INR: 3.5>2.9>2.3>1.8 >1.6>1.8>2.2 Continue warfarin Acute Metabolic Encephalopathy Has intermittent lethargy Likely due to Uremia Monitor renal function Reorient as needed Pleural effusion: H/O B/L pleural effusions requiring thoracentesis in the recent past Continue diuresis as above Anemia of CKD (chronic kidney disease): Last Hgb: 9.1 Monitor H/O Lymphoma H/O Myelodysplastic syndrome As per records Based on [facility] meeting with palliative team and family, patient is now DNR Per CM notes, family want dc to short term rehab and then home with eventual transition to hospice. CM working on placement Admission and Anticipated Discharge Date Admission Date: August 14, 2021 Subjective Patient seen and examined. Denied any new complaints Physical Exam Constitutional: + ill appearing and + well hydrated; no acute distress Eyes: PERRL, conjunctivae normal, anicteric sclerae ENMT: external ear and nose normal, oropharynx normal Respiratory: normal respiratory effort, lungs clear to auscultation Cardiovascular: Rate/Rhythm: regular rate and regular rhythm Heart Sounds: + murmur S1 S2 Gastrointestinal (Abdomen): normal bowel sounds, soft, nontender, no hepatosplenomegaly Neurologic: PERRL, EOMI, accommodation nl, no face palsy, no dysarthria Psychiatric: A+Ox3, euthymic affect Results & Data Results & Data ([facility]) Vital Signs (Past 12 Hours) Vital Signs Temp Pulse Pulse Pulse Resp BP Pulse Ox 08/29/21 09:02 73 98/63 L 08/29/21 08:52 70 103/62 08/29/21 07:46 36.7 C 72 18 100/60 98 08/29/21 07:39 74 18 92 Laboratory Results Abnormal lab results 03/20/22 Range/Units 06:43 BUN 68 H (6-23) mg/dl Creatinine 1.84 H (0.6-1.4) mg/dl BUN/Creatinine Ratio 37.0 H (10-20)
--- NOTE | 2021-08-29 15:58 | Cardiology Progress Note ---
Date of Service August 29, 2021 Assessment & Plan (1) Chronic heart failure with reduced ejection fraction and diastolic dys function: (2) Cardiorenal syndrome with renal failure: Plan: (1) Chronic heart failure with reduced ejection fraction and diastolic dysfunction due to ischemic cardiomyopathy and (2) LBBB (left bundle branch block), with (3) CKD stage 4 (chronic kidney disease) / cardiorenal syndrome and moderate aortic stenosis: Agree with palliative care approach. INR 2.2 Creatinine improved down to 1.84 Continue torsemide. Aldactone on hold. AICD VT, VF treatments deactivated, still biventricular pacing. Admission and Anticipated Discharge Date Admission Date: August 14, 2021 Subjective Patient seen in cardiology follow up. He is off telemetry in room 382-2. Daughter and son-in-law at the bedside. Physical Exam Physical Exam: Temp Pulse Resp BP Pulse Ox 37.4 C 72 18 96/58 L 94 08/29/21 15:49 08/29/21 15:49 08/29/21 15:49 08/29/21 15:49 08/29/21 15:49 Constitutional: no acute distress Respiratory: reduced BS at the bases Cardiovascular: Rate/Rhythm: regular rate and regular rhythm Heart Sounds: + murmur (2/6 SM) Extremities: no edema Gastrointestinal (Abdomen): normal bowel sounds, soft, nontender, no hepatosplenomegaly Musculoskeletal: dime sized left heel ulcer Neurologic: PERRL, EOMI, accommodation nl, no face palsy, no dysarthria more alert than when I had seen him severe days ago Genitourinary: using urinal, Anthony catheter removed. Results & Data ([facility]) Vital Signs (Past 12 Hours) Vital Signs Temp Pulse Pulse Pulse Resp BP Pulse Ox 08/29/21 15:49 37.4 C 72 18 96/58 L 94 08/29/21 09:02 73 98/63 L 08/29/21 08:52 70 103/62 08/29/21 07:46 36.7 C 72 18 100/60 98 08/29/21 07:39 74 18 92 Laboratory Results Comprehensive Metabolic Panel 08/29/21 Range/Units 06:43 Sodium 141 (136-145) mmol/L Potassium 3.8 (3.5-5.1) mmol/L Chloride 103 (98-107) mmol/L Carbon Dioxide 31 (21-32) mmol/L BUN 68 H (6-23) mg/dl Creatinine 1.84 H (0.6-1.4) mg/dl Glucose 88 (70-99(Fasting)) mg/dl Calcium 8.7 (8.5-10.1) mg/dl Intake and Output 08/29/21 08/29/21 08/29/21 06:59 14:59 22:59 Intake Total 360 / 360 Output Total 150 / 680 425 / 425 Balance -150 / -80 -65 / -65 Intake: Oral 360 / 360 Output: Urine 425 / 425 Urine Amount (Catheter) 150 / 150 External 150 / 150 Other: # Unmeasured Voids 1 1 Weight 58.9 kg Weight Measurement Method Built in [facility] Patient Weight 08/30/21 06:59 Weight 58.9 kg
[2021-08-29] MEDS: WARFARIN SOD 5 MG TAB PO SCH (16:47)
[2021-08-30] MEDS: LEVOTHYROXINE SODIUM 75 MCG TABLET PO SCH (05:49)
[2021-08-30] MEDS: FORMOTEROL 20 MCG/2 ML VIAL NEB SCH ×2 (07:16→19:16)
[2021-08-30 07:45] LABS: Prothrombin Time 30.3 Seconds (9.0-12.0)
[2021-08-30 07:54] LABS: BUN Creatinine Ratio 39.1 (10-20); Calcium 8.7 mg/dl (8.5-10.1); Creatinine Clr Calc Pharmacy 30.5 ml/min; Est GFR (African American) 46.1 ml/min; Est GFR (Non-African American) 39.8 ml/min; Potassium 3.8 mmol/L (3.5-5.1)
[2021-08-30] MEDS: AZELASTINE HCL 0.1% NASAL 200 SPRAYS/27,400 MCG BTL NAE SCH ×2 (08:20→19:55)
[2021-08-30] MEDS: FLUTICASONE PROPIONATE NA SPR 16 GM BTL NAE SCH (08:21)
[2021-08-30] MEDS: METOPROLOL SUCC 25MG EXT REL TAB PO SCH ×2 (08:22→19:53)
[2021-08-30] MEDS: PYRIDOXINE HCL 50 MG TAB PO SCH ×2 (08:23→19:54)
[2021-08-30] MEDS: TORSEMIDE 10 MG TAB PO SCH ×2 (08:23→16:33)
[2021-08-30] MEDS: CHOLECALCIFEROL 1,000 UNITS 25 MCG TAB PO SCH (08:24)
[2021-08-30] MEDS: CYANOCOBALAMIN (B-12) 500 MCG TABLET PO SCH (08:24)
[2021-08-30] MEDS: POTASSIUM CHLORIDE CRTAB 20 MEQ TABCR PO SCH ×2 (08:25→19:58)
--- NOTE | 2021-08-30 13:26 | Hospitalist Progress Note ---
Date of Service August 30, 2021 Assessment & Plan (1) Acute and chronic respiratory failure with hypoxia: Plan: 81 yr male with H/O HTN, chronic HFrEF, EF 20-25% on echo 2020, s/p ICD, ventricular tachycardia, LBBB, moderate aortic stenosis, CKD IV, arterial t hrombosis, chronic anemia, pleural effusions, lymphoma treated with chemotherapy, myelodysplastic syndrome and other problems listed below presented to ER with complaint of shortness of breath and productive cough, rhinorrhea x 1 day. Recent h/o hospitalization for acute on chronic HFrEF, pleural effusions s/p bilateral thoracentesis, ICD placement on 06/15/2021 Acute on chronic respiratory failure with hypoxia secondary to bilateral pneumonia Acute Kidney Injury on CKD IV, likely ATN Acute on chronic CHF, systolic and Diastolic H/O Ischemic cardiomyopathy, EF 25 to 30%, S/P AICD placement --CXR: Possible tiny bilateral pleural effusions, decreased from prior exam. Previously noted airspace opacities have resolved. There is mild pulmonary edema. --ECHO 05/15/2021: EF: 25-30%, large sized apical, septal, anterior septal, anterior and lateral wall motion abnormality with hypokinesis to akinesis of the segments. Mild diffuse right ventricular hypokinesis, moderate mitral regurgitation, mild to moderate tricuspid regurgitation, mild aortic valve stenosis, severe pulmonary hypertension, grade 2 diastolic dysfunction --Sputum culture negative --Blood cultures negative to date Empirically received cefepime and doxycycline for 2 days and then cefuroxime and doxycycline-Completed course Repeat CXR showed moderate pulmonary edema and bilateral pleural effusions R > L Appreciate pulmonology recommendations Continue formoterol and Nebs PRN Was on iv Lasix 80 mg BID now transitioned to Torsemide Metolazone discontinued Spironolactone on hold. Nephrology and [employer] Architect on board. Recommendations appreciated Continue fluid restriction, low salt diet Hemoptysis Now resolved ASA still on hold CXR on 08/23/21 showed improvement in the pulmonary edema, small bilateral pleural effusions, and right basilar densities Warfarin was initially held but resumed Elevated LFTs Bilirubinemia AST/ALT significantly increased to 2000s/1000s Normal alkaline phosphatase --Liver US: Limited examination due to overlying bowel gas. Increased echogenicity of the liver. Cholelithiasis with no ultrasound evidence for acute cholecystitis.Increase fluid over the dome of the liver characteristic of increased ascites. --Portal Vein USD:No portal vein thrombosis. --Hepatitis Panel: Negative Elevated LFTs likely etiology to be congestive hepatopathy, less likely DILI Amiodarone, stain held. Will be DCed upon discharge as well Avoid all hepatotoxic agents as able LFTs improved Paroxysmal atrial fibrillation Current paced rhythm Tele showed was in Afib till around 7;50am this morning INR supratherapeutic at 6.6 on presentation Continue metoprolol 25 mg twice daily Appreciate cardiology input Monitor INR: 3.5>2.9>2.3>1.8 >1.6>1.8>2.2>3 Dose reduced to 2mg daily Epistaxis resolved Acute Metabolic Encephalopathy Has intermittent lethargy Likely due to Uremia Monitor renal function Reorient as needed Pleural effusion: H/O B/L pleural effusions requiring thoracentesis in the recent past Continue diuresis as above Anemia of CKD (chronic kidney disease): Last Hgb: 9.1 Monitor H/O Lymphoma H/O Myelodysplastic syndrome As per records Based on [facility] meeting with palliative team and family, patient is now DNR Per CM notes, family want dc to short term rehab and then home with eventual transition to hospice. CM working on placement Admission and Anticipated Discharge Date Admission Date: August 14, 2021 Subjective Patient seen and examined. Patient was seating and eating lunch Patient reports weakness. Denied any headache, dizziness Denied chest pain, cough, shortness of breath Denies any nausea, abdominal pain, vomiting, diarrhea Denies fevers and chills Reported some epistaxis this morning which had resolved Physical Exam Constitutional: + ill appearing and + well hydrated; no acute distress Eyes: PERRL, conjunctivae normal, anicteric sclerae ENMT: external ear and nose normal, oropharynx normal Respiratory: normal respiratory effort, lungs clear to auscultation Cardiovascular: Rate/Rhythm: regular rate and regular rhythm Heart Sounds: + murmur S1 S2 Gastrointestinal (Abdomen): normal bowel sounds, soft, nontender, no hepatosplenomegaly Musculoskeletal: no cyanosis or clubbing, extremities motor strength 5/5 Neurologic: PERRL, EOMI, accommodation nl, no face palsy, no dysarthria Psychiatric: A+Ox3, euthymic affect Results & Data Results & Data ([facility]) Vital Signs (Past 12 Hours) Vital Signs Temp Pulse Resp BP Pulse Ox 08/30/21 12:30 68 92/60 L 08/30/21 08:18 74 93/54 L 08/30/21 07:16 59 L 18 94 08/30/21 07:07 36.7 C 66 16 104/61 95 Laboratory Results Abnormal lab results 08/30/21 08/30/21 Range/Units 07:12 07:12 PT 30.3 H (9.0-12.0) Seconds INR 3.0 H (0.9-1.1) BUN 63 H (6-23) mg/dl Creatinine 1.61 H (0.6-1.4) mg/dl BUN/Creatinine Ratio 39.1 H (10-20)
[2021-08-30] MEDS ORDERED: WARFARIN SOD 2 MG TAB PO SCH (16:00)
[2021-08-31] MEDS: LEVOTHYROXINE SODIUM 75 MCG TABLET PO SCH (06:06)
[2021-08-31] MEDS: FORMOTEROL 20 MCG/2 ML VIAL NEB SCH ×2 (07:27→11:03)
[2021-08-31 08:13] LABS: INR 3.1 (0.9-1.1); Prothrombin Time 31.5 Seconds (9.0-12.0)
[2021-08-31 08:27] LABS: BUN Creatinine Ratio 35.2 (10-20); Calcium 8.3 mg/dl (8.5-10.1); Creatinine Clr Calc Pharmacy 27.8 ml/min; Est GFR (African American) 39.8 ml/min; Est GFR (Non-African American) 34.3 ml/min
[2021-08-31] MEDS: TORSEMIDE 10 MG TAB PO SCH ×2 (09:15→16:42)
[2021-08-31] MEDS: PYRIDOXINE HCL 50 MG TAB PO SCH ×2 (09:15→20:38)
[2021-08-31] MEDS: AZELASTINE HCL 0.1% NASAL 200 SPRAYS/27,400 MCG BTL NAE SCH ×2 (09:16→20:37)
[2021-08-31] MEDS: CHOLECALCIFEROL 1,000 UNITS 25 MCG TAB PO SCH (09:16)
[2021-08-31] MEDS: CYANOCOBALAMIN (B-12) 500 MCG TABLET PO SCH (09:16)
[2021-08-31] MEDS: FLUTICASONE PROPIONATE NA SPR 16 GM BTL NAE SCH (09:16)
[2021-08-31] MEDS: METOPROLOL SUCC 25MG EXT REL TAB PO SCH ×2 (09:17→20:38)
[2021-08-31] MEDS: POTASSIUM CHLORIDE CRTAB 20 MEQ TABCR PO SCH ×2 (09:19→20:37)
--- NOTE | 2021-08-31 13:35 | Hospitalist Progress Note ---
Date of Service August 31, 2021 Assessment & Plan (1) Acute and chronic respiratory failure with hypoxia: Plan: 81 yr male with H/O HTN, chronic HFrEF, EF 20-25% on echo 2020, s/p ICD, ventricular tachycardia, LBBB, moderate aortic stenosis, CKD IV, arterial t hrombosis, chronic anemia, pleural effusions, lymphoma treated with chemotherapy, myelodysplastic syndrome and other problems listed below presented to ER with complaint of shortness of breath and productive cough, rhinorrhea x 1 day. Recent h/o hospitalization for acute on chronic HFrEF, pleural effusions s/p bilateral thoracentesis, ICD placement on 06/15/2021 Acute on chronic respiratory failure with hypoxia secondary to bilateral pneumonia Acute Kidney Injury on CKD IV, likely ATN Acute on chronic CHF, systolic and Diastolic H/O Ischemic cardiomyopathy, EF 25 to 30%, S/P AICD placement --CXR: Possible tiny bilateral pleural effusions, decreased from prior exam. Previously noted airspace opacities have resolved. There is mild pulmonary edema. --ECHO 05/15/2021: EF: 25-30%, large sized apical, septal, anterior septal, anterior and lateral wall motion abnormality with hypokinesis to akinesis of the segments. Mild diffuse right ventricular hypokinesis, moderate mitral regurgitation, mild to moderate tricuspid regurgitation, mild aortic valve stenosis, severe pulmonary hypertension, grade 2 diastolic dysfunction --Sputum culture negative --Blood cultures negative to date Empirically received cefepime and doxycycline for 2 days and then cefuroxime and doxycycline-Completed course Repeat CXR showed moderate pulmonary edema and bilateral pleural effusions R > L Appreciate pulmonology recommendations Continue Nebs PRN Was on iv Lasix 80 mg BID now transitioned to Torsemide Metolazone discontinued Spironolactone has been on hold. Plan to dc on hold Nephrology and Director Economic recommendations appreciated Continue fluid restriction, low salt diet Hemoptysis Now resolved ASA still on hold CXR on 08/23/21 showed improvement in the pulmonary edema, small bilateral pleural effusions, and right basilar densities Warfarin was initially held but resumed Elevated LFTs Bilirubinemia AST/ALT significantly increased to 2000s/1000s Normal alkaline phosphatase --Liver US: Limited examination due to overlying bowel gas. Increased echogenicity of the liver. Cholelithiasis with no ultrasound evidence for acute cholecystitis.Increase fluid over the dome of the liver characteristic of increased ascites. --Portal Vein USD:No portal vein thrombosis. --Hepatitis Panel: Negative Elevated LFTs likely etiology to be congestive hepatopathy, less likely DILI Amiodarone, stain held. Will be DCed upon discharge as well Avoid all hepatotoxic agents as able LFTs improved Paroxysmal atrial fibrillation Current paced rhythm Tele showed was in Afib till around 7;50am this morning INR supratherapeutic at 6.6 on presentation Continue metoprolol 25 mg twice daily Appreciate cardiology input Monitor INR: 3.5>2.9>2.3>1.8 >1.6>1.8>2.2>3>3.1 Will hold warfarin dose today since INR is 3.1 Plan to dc on 2mg daily with monitoring at SNF Acute Metabolic Encephalopathy Has intermittent lethargy Likely due to Uremia Monitor renal function Reorient as needed Pleural effusion: H/O B/L pleural effusions requiring thoracentesis in the recent past Continue diuresis as above Anemia of CKD (chronic kidney disease): Last Hgb: 9.1 Monitor H/O Lymphoma H/O Myelodysplastic syndrome As per records Based on [facility] meeting with palliative team and family, patient is now DNR Per CM notes, family want dc to short term rehab and then home with eventual transition to hospice. CM working on placement Possible DC tomorrow Admission and Anticipated Discharge Date Admission Date: August 14, 2021 Subjective Patient seen and examined. Patient reports weakness. Denied any headache, dizziness Denied chest pain, cough, shortness of breath Denies any nausea, abdominal pain, vomiting, diarrhea Denies fevers and chills No epistaxis today Physical Exam 2 Constitutional: + well hydrated; no acute distress Eyes: PERRL, conjunctivae normal, anicteric sclerae ENMT: external ear and nose normal, oropharynx normal Respiratory: normal respiratory effort, lungs clear to auscultation Cardiovascular: Rate/Rhythm: regular rate and regular rhythm Heart Sounds: + murmur S1 S2 Gastrointestinal (Abdomen): normal bowel sounds, soft, nontender, no hepatosplenomegaly Musculoskeletal: no cyanosis or clubbing, extremities motor strength 5/5 Neurologic: PERRL, EOMI, accommodation nl, no face palsy, no dysarthria Psychiatric: A+Ox3, euthymic affect Results & Data Results & Data ([place]) Vital Signs (Past 12 Hours) Vital Signs Temp Pulse Resp BP Pulse Ox 08/31/21 07:52 79 20 94 08/31/21 07:33 70 90/56 L 99 08/31/21 07:15 36.8 C 73 16 79/45 L 92 Laboratory Results Abnormal lab results 08/31/21 08/31/21 Range/Units 07:43 07:43 PT 31.5 H (9.0-12.0) Seconds INR 3.1 H (0.9-1.1) BUN 64 H (6-23) mg/dl Creatinine 1.82 H (0.6-1.4) mg/dl BUN/Creatinine Ratio 35.2 H (10-20) Calcium 8.3 L (8.5-10.1) mg/dl
[2021-08-31] MEDS ORDERED: COVID-19 VAC,AD26(JANSSEN)/PF 0.5 ML SYR IM ONE (15:30)
--- NOTE | 2021-08-31 19:12 | Cardiology Progress Note ---
Date of Service August 31, 2021 Assessment & Plan (1) Chronic heart failure with reduced ejection fraction and diastolic dys function: (2) Cardiorenal syndrome with renal failure: Plan: (1) Chronic heart failure with reduced ejection fraction and diastolic dysfunction due to ischemic cardiomyopathy and (2) LBBB (left bundle branch block), with (3) CKD stage 4 (chronic kidney disease) / cardiorenal syndrome and moderate aortic stenosis: Agree with palliative care approach. INR 3.1 Creatinine improved down to 1.82 Continue torsemide. Aldactone on hold. AICD VT, VF treatments deactivated, still biventricular pacing. for transfer to [facility]. Discussed at bedside with pt and son, Grey. Admission and Anticipated Discharge Date Admission Date: August 14, 2021 Subjective Pt seen in follow up. He is sitting up in the bedside chair. Mentating relatively well. Physical Exam Constitutional: + cachectic; no acute distress Respiratory: normal respiratory effort, lungs clear to auscultation Cardiovascular: Rate/Rhythm: regular rate and regular rhythm Heart Sounds: + murmur (2/6 SM) Extremities: no edema Gastrointestinal (Abdomen): normal bowel sounds, soft, nontender, no hepatosplenomegaly Skin: + ecchymosis (severeal areas of superficial ecchymosis) Neurologic: PERRL, EOMI, accommodation nl, no face palsy, no dysarthria Results & Data ([facility]) Vital Signs (Past 12 Hours) Vital Signs Temp Pulse Resp BP Pulse Ox 08/31/21 14:31 36.9 C 71 16 94/58 L 96 08/31/21 07:52 79 20 94 08/31/21 07:33 70 90/56 L 99 08/31/21 07:15 36.8 C 73 16 79/45 L 92
[2021-09-01] MEDS: ACETAMINOPHEN 325 MG TAB PO PRN (00:41)
[2021-09-01] MEDS: LEVOTHYROXINE SODIUM 75 MCG TABLET PO SCH (05:42)
[2021-09-01 06:27] LABS: Mean Corpuscular Hemoglobin 38.6 pg (25-34); Mean Corpuscular Hgb Conc 33.3 g/dL (32-36); Mean Corpuscular Volume 115.9 fL (80-100); Mean Platelet Volume 9.6 fL (7.4-10.4); Platelet Count 197 K/uL (130-400); RDW Coefficient of Variation 17.7 % (11.5-14.5); RDW Standard Deviation 74.7 fL (36.4-46.3); Red Blood Count 2.07 M/uL (4.7-6.1); White Blood Count 6.57 K/uL (4.8-10.8)
[2021-09-01 06:47] LABS: BUN Creatinine Ratio 33.3 (10-20); Calcium 8.3 mg/dl (8.5-10.1); Creatinine Clr Calc Pharmacy 25.2 ml/min; Est GFR (African American) 35.3 ml/min; Est GFR (Non-African American) 30.4 ml/min; Potassium 4.1 mmol/L (3.5-5.1)
[2021-09-01 07:39] LABS: Prothrombin Time 30.5 Seconds (9.0-12.0)
[2021-09-01] MEDS: METOPROLOL SUCC 25MG EXT REL TAB PO SCH (07:53)
[2021-09-01] MEDS: POTASSIUM CHLORIDE CRTAB 20 MEQ TABCR PO SCH (07:54)
[2021-09-01] MEDS: TORSEMIDE 10 MG TAB PO SCH (07:55)
[2021-09-01] MEDS: AZELASTINE HCL 0.1% NASAL 200 SPRAYS/27,400 MCG BTL NAE SCH (08:18)
[2021-09-01] MEDS: FLUTICASONE PROPIONATE NA SPR 16 GM BTL NAE SCH (08:18)
[2021-09-01] MEDS: PYRIDOXINE HCL 50 MG TAB PO SCH (08:20)
[2021-09-01] MEDS: CYANOCOBALAMIN (B-12) 500 MCG TABLET PO SCH (08:20)
[2021-09-01] MEDS: CHOLECALCIFEROL 1,000 UNITS 25 MCG TAB PO SCH (08:20)
[2021-09-01] MEDS ORDERED: MIDODRINE HCL 2.5 MG TAB PO SCH (11:00)
[2021-09-01] MEDS ORDERED: WARFARIN SOD 2 MG TAB PO SCH (16:00)
--- NOTE | 2021-09-05 18:43 | Discharge Summary ---
Date of Service September 01, 2021 Admission HPI Per Admitting Provider Patient is 81-year-old male with PMH HTN, chronic HFrEF, EF 20-25% on echo 2020, s/p ICD, ventricular tachycardia, LBBB, moderate aortic stenosis, CKD IV, arterial thrombosis, chronic anemia, pleural effusions, lymphoma treated with chemotherapy, myelodysplastic syndrome and other problems listed below presented to ER with complaint of shortness of breath and cough x 1 day. History hospitalization at [facility] 05/25/2021-06/22/2021 for acute on chronic HFrEF, pleural effusions s/p bilateral thoracentesis, ICD placement on 06/15/2021, ERICK, UTI. History hospitalization end of February 2021 for acute respiratory failure, NSTEMI, CHF, had bilateral thoracentesis showing transudate. New onset Sushma manning also developed left leg arterial embolism and had thrombectomy on 03/12/2021, discharged on aspirin and Coumadin. Patient reports cough started last night and reports cough is productive yellow/brown. Also reports clear rhinorrhea. Denies chest pain. He states has chronic SOB with exertion and is unsure if it is worse. Unsure if has orthopnea. Reports chronic bilateral leg swelling and feels like legs have been more swollen. He reports pain to left heel that was evaluated at prior hospitalization by vascular surgery as well. Denies any fever/chills, known ill contacts, diaphoresis, N/V/D/C, SHOEMAKER, dizziness, syncope, vision changes, neck pain, palpitations, hemoptysis, sore throat, choking, otalgia, abdominal pain, paresthesias, extremity weakness, rashes, dysuria, hematuria. Today in ER afebrile, no hypoxia, vitals stable. WBC: 12, procalcitonin: 0.09. CXR: Possible tiny bilateral pleural effusions, decreased from prior exam. Previously noted airspace opacities have resolved. There is mild pulmonary edema. In ER was given cefepime, vancomycin, lasix 40mg IV, calcium gluconate 1000mg IV. Principal Diagnosis Acute on chronic systolic CHF Pneumonia ERICK on CKD stage 4 Acute hypoxic respiratory failure Transaminitis Discharge Exam Patient appeared well. No acute distress. Breathing comfortably on room air. Discharge Data Allergies Allergy/AdvReac Type Severity Reaction Status Date / Time RYLEE Inhibitors AdvReac Intermediate Renal Verified 08/14/21 15:57 Complications Consultations 08/14/21 14:44 ED Decision to Admit Stat 08/14/21 16:45 Consult Cardiology Routine 08/14/21 16:46 Consult Nephrology Routine 08/15/21 17:18 Consult Pulmonology Routine 08/16/21 10:29 Consult Gastroenterology Routine 08/20/21 16:00 Consult Palliative Care Routine Ordered Studies 08/15/21 10:49 US liver Routine 08/16/21 16:15 US duplex portal hepatic veins Routine Hospital Course (1) Acute and chronic respiratory failure with hypoxia: 81 yr male with H/O HTN, chronic HFrEF, EF 20-25% on echo 2020, s/p ICD, ventricular tachycardia, LBBB, moderate aortic stenosis, CKD IV, arterial thrombosis, chronic anemia, pleural effusions, lymphoma treated with chemotherapy, myelodysplastic syndrome and other problems listed below presented to ER with complaint of shortness of breath and productive cough, rhinorrhea x 1 day. Recent h/o hospitalization for acute on chronic HFrEF, pleural effusions s/p bilateral thoracentesis, ICD placement on 06/15/2021 Acute respiratory failure with hypoxia -secondary to bilateral pneumonia and CHF Acute Kidney Injury on CKD IV, likely ATN Acute on chronic CHF, systolic and Diastolic H/O Ischemic cardiomyopathy, EF 25 to 30%, S/P AICD placement ECHO 05/15/2021: EF: 25-30%, large sized apical, septal, anterior septal, anterior and lateral wall motion abnormality with hypokinesis to akinesis of the segments. Mild diffuse right ventricular hypokinesis, moderate mitral regurgitation, mild to moderate tricuspid regurgitation, mild aortic valve stenosis, severe pulmonary hypertension, grade 2 diastolic dysfunction Was on Lasix 80 mg IV BID then transitioned to Torsemide Metolazone discontinued Spironolactone has been on hold Evaluated by Nephrology [facility] while here Continue fluid restriction, low salt diet Euvolemic at discharge Questionable Pneumonia Empirically received cefepime and doxycycline for 2 days and then cefuroxime and doxycycline-Completed course Sputum culture negative Blood cultures negative to date Hemoptysis Now resolved ASA held while here and resumed at discharge CXR on 08/23/21 showed improvement in the pulmonary edema, small bilateral pleural effusions, and right basilar densities Warfarin was initially held but resumed at 2mg daily Elevated LFTs Bilirubinemia AST/ALT significantly increased to 2000s/1000s Normal alkaline phosphatase --Liver US: Limited examination due to overlying bowel gas. Increased echogenicity of the liver. Cholelithiasis with no ultrasound evidence for acute cholecystitis.Increase fluid over the dome of the liver characteristic of increased ascites. --Portal Vein USD:No portal vein thrombosis. --Hepatitis Panel: Negative Elevated LFTs likely etiology to be congestive hepatopathy, less likely DILI Amiodarone, stain held and discontinued upon discharge Avoid all hepatotoxic agents as able LFTs improved Paroxysmal atrial fibrillation Anticoagulated on Coumadin Currently paced rhythm INR supratherapeutic at 6.6 on presentation. Coumadin was held. INR normalized and coumadin resumed at 2mg daily Continue metoprolol 25 mg twice daily Last INR prior to discharge is: 3 Discharged on: Coumadin 2mg daily with monitoring at SNF Acute Metabolic Encephalopathy Has intermittent lethargy Likely due to Uremia Monitor renal function Reorient as needed Anemia of CKD (chronic kidney disease): Last Hgb: 9.1 Monitor H/O Lymphoma H/O Myelodysplastic syndrome As per records Based on [facility] meeting with palliative team and family, patient's code status changed to DNR Family want discharge to short term rehab and then home with eventual transition to hospice. Total Time Total Time Spent Total Time Spent (In Minutes): 40 Discharge Plan Discharge Items Patient Disposition: Transfer [facility] Reason For Visit: SOB Discharge Diagnosis: Acute on chronic systolic CHF Pneumonia ERICK on CKD stage 4 Acute hypoxic respiratory failure Transaminitis Condition on Discharge: Fair Activity: Resume your previous activity Non-emergency contact: Primary Care Provider and Specialist Call non-emergency contact if: you have any medication questions and your symptoms worsen Follow-up/Referrals: Everton Healy, [Primary Care Provider] - Diet: Low Sodium (2gm) Fluids: 1500ml (6 cups) Diet Texture: Easy to Chew Addtl Attending Provider Instructions: Ongoing goals of care discussion. Consideration of hospice if patient does poorly at SNF Midodrine 2.5mg BID started 09/01 for soft BP, up titrate as needed Repeat INR 09/03. goal INR 2-3 Pending Studies at Discharge: No Stand-Alone Forms: [employer] App Skilled Items Patient informed of condition?: Yes DNR: Yes Discharge Level of Care: Skilled Communicable Disease: No Discharge Prognosis: Stable Lines: None Urinary Catheter: No Medications and DC Order Prescriptions: New ipratropium-albuterol 0.5 mg-3 mg(2.5 mg base)/3 mL Solution For Nebulization 3 ml NEB QIDR PRN (Reason: shortness of breath or wheezing) 30 Days Qty: 30 RF: 0 torsemide 10 mg Tablet 10 mg PO [id number] 30 Days Qty: 30 RF: 0 melatonin 3 mg Tablet 3 mg PO HS PRN (Reason: sleep) 30 Days Qty: 30 RF: 0 potassium chloride 20 mEq Tablet,Er Particles/Crystals 20 meq PO BID 7 Days Qty: 14 RF: 0 metoprolol succinate 25 mg Tablet Extended Release 24 Hr 25 mg PO BID Qty: 60 RF: 0 midodrine 2.5 mg tablet 2.5 mg PO BID Qty: 60 RF: 1 Continued cyanocobalamin (vitamin B-12) [Vitamin B-12] 1,000 mcg Tablet 1,000 mcg PO QAM RF: 0 triamcinolone acetonide 0.1 % ointment 1 applic TOPICAL HS PRN (Reason: Rash) RF: 0 pyridoxine (vitamin B6) [Vitamin B-6] 100 mg Tablet 100 mg PO AMPM RF: 0 fluticasone propionate 50 mcg/actuation [place],Suspension 1 spray INTRANASAL DAILY RF: 0 cholecalciferol (vitamin D3) [Vitamin D3] 25 mcg (1,000 unit) Tablet 25 mcg PO QAM RF: 0 levothyroxine 75 mcg tablet 75 mcg PO DAILYBB RF: 0 azelastine 137 mcg (0.1 %) aerosol,spray 2 spray INTRANASAL BID RF: 0 aspirin 81 mg Tablet,Delayed Release (Dr/Ec) 81 mg PO QAM Qty: 30 RF: 0 warfarin 2 mg Tablet 2 mg PO DAILY RF: 0 Discontinued torsemide 20 mg tablet 40 mg PO BID RF: 0 amiodarone 200 mg tablet 200 mg PO QAM RF: 0 atorvastatin 40 mg tablet 40 mg PO HS RF: 0 potassium chloride 20 mEq tablet,ER particles/crystals 40 meq PO QAM RF: 0 metoprolol succinate 25 mg tablet extended release 24 hr 12.5 mg PO HS RF: 0 gabapentin 100 mg capsule 100 mg PO AMPM PRN (Reason: Pain) RF: 0 Discharge Orders: Discharge Order (Routine); Ordered 09/01/21 Ordered By: Alejandro-Thi Nuno Admission Data Admit Date/Time: 08/14/21 15:25 Attending Provider: Evan Nuno Admit Provider: Gavino Peña Primary Care Provider: Everton Healy Other Providers: Eulogio Valentin ; Gavino Peña ; Vin Fox ; Jim Freitas ; Bonnie Moore ; Umm Narvaez ; Nora Portillo ; Umm Lagunas I. Other Interventions: Discharge Summary Assessment (RN) Last Done: 09/01/21 10:30
== END 2021-09-01 11:25 | DRG 291 ==
LOC: ED 12:43 → SUATTDRO 15:25 → 2S 15:25 → 3N 08-26 18:14